=== PATIENT | male | born 1985 | race Caucasian/White ===

== ENCOUNTER 2016-06-04 12:32 | Inpatient (IN) | payer OTHER ==
[2016-06-04] MEDS ORDERED: SODIUM CHLORIDE 0.9% 1,000 ML IV ONE ×2 (13:54→15:49)
--- NOTE | 2016-06-04 13:59 | ED ---
General Adult HPI - General Chief complaint: Psychiatric Symptoms Stated complaint: mental health Time Seen by Provider: 06/04/16 13:00 Source: patient, family, RN notes reviewed Mode of arrival: ambulatory Limitations: no limitations - History of Present Illness Initial comments: This is a 30-year-old male who presents emergency Department with his parents. Patient is a diabetic and in the last couple of years has lost his vision was completely. Parents state he was depressed since she's been a young boy and also was diagnosed with bipolar. Parents state over the last month or so the patient is becoming delusional and hearing voices and now over the last week or so has been talking back to the voices and becoming extremely paranoid to the point where he refuses to go to the bathroom because thinks people in the bathroom are going to get him and so he has been going to the bathroom sometimes in his underwear. Family states he has become more more fearful to the point where the other day they found him in a corner holding a seat builder knife as he thought people were after him. Father states one time he wandered out of the house to go straight and some kids out who were teasing him even though the kids were no or near the house because [place]. family is afraid he might hurt somebody if they were ever to come to the door or if ever do were encountering anybody at his house. Patient was not of much help with the history he didn't seem to understand why he was brought in. - Related Data Home Medications Medication Instructions Recorded Confirmed Atorvastatin [Lipitor] 80 mg PO HS 06/04/16 06/04/16 Gabapentin [Neurontin] 800 mg PO TID PRN 06/04/16 06/04/16 Insulin Glargine,Hum.rec.anlog See Protocol SQ HS 06/04/16 06/04/16 [Lantus Solostar] Insulin Lispro [humaLOG Kwikpen] See Protocol SQ AC-TID 06/04/16 06/04/16 LORazepam [Ativan] 0.25 - 0.5 mg PO BID PRN 06/04/16 06/04/16 Latanoprost [Xalatan 0.005%] 1 drop BOTH EYES HS 06/04/16 06/04/16 Lisinopril [Zestril] 20 mg PO DAILY 06/04/16 06/04/16 Metoprolol Tartrate [Lopressor] 100 - 150 mg PO BID 06/04/16 06/04/16 Pantoprazole Sodium [Protonix] 40 mg PO AC-BID 06/04/16 06/04/16 Ranitidine HCl [Zantac] 150 mg PO AC-BID 06/04/16 06/04/16 Sertraline [Zoloft] 100 mg PO DAILY 06/04/16 06/04/16 Timolol 0.5% Ophth Soln [Timoptic 1 drop BOTH EYES DAILY 06/04/16 06/04/16 0.5% Ophth Soln] Venlafaxine HCl [Effexor XR] 150 mg PO BID 06/04/16 06/04/16 carBAMazepine [TEGretol] 200 mg PO BID 06/04/16 06/04/16 cloNIDine 0.1 MG/24HR PATCH 1 patch TRANSDERM WE 06/04/16 06/04/16 [Catapres-TTS] Allergies Allergy/AdvReac Type Severity Reaction Status Date / Time adhesive tape Allergy Rash/Hives Verified 06/04/16 13:40 cefazolin Allergy Rash/Hives Verified 06/04/16 13:40 latex Allergy Rash/Hives Verified 06/04/16 13:40 duloxetine [From Cymbalta] AdvReac Confusion Verified 06/04/16 13:40 pregabalin [From Lyrica] AdvReac Hallucinati Verified 06/04/16 13:40 ons Review of Systems ROS Statement: Those systems with pertinent positive or pertinent negative responses have been documented in the HPI. ROS Other: All systems not noted in ROS Statement are negative. Past Medical History Past Medical History: Diabetes Mellitus Additional Past Medical History / Comment(s): bilateral glaucoma, Tachycardia, diabetic gastropariesis, neuropathy History of Any Multi-Drug Resistant Organisms: None Reported Additional Past Surgical History / Comment(s): eye surgery Past Psychological History: Anxiety, Bipolar, Depression Smoking Status: Current every day smoker Past Alcohol Use History: None Reported Past Drug Use History: None Reported General Exam - General Exam Comments Initial Comments: GENERAL: Patient is well-developed and well-nourished. Patient is nontoxic and well- hydrated and is in no acute distress. ENT: Neck is soft and supple. No significant lymphadenopathy is noted. Oropharynx is clear. Moist mucous membranes. Neck has full range of motion without eliciting any pain. EYES: The sclera were anicteric and conjunctiva were pink and moist. Extraocular movements were intact and pupils were equal round and reactive to light. Eyelids were unremarkable. PULMONARY: Unlabored respirations. Good breath sounds bilaterally. No audible rales rhonchi or wheezing was noted. CARDIOVASCULAR: There is a regular rate and rhythm without any murmurs gallops or rubs. ABDOMEN: Soft and nontender with normal bowel sounds. No palpable organomegaly was noted. There is no palpable pulsatile mass. SKIN: Skin is clear with no lesions or rashes and otherwise unremarkable. NEUROLOGIC: Patient is alert and oriented patient appears who he is and where he is but not why he is here or what time of the year at this. Cranial nerves II through XII are grossly intact. Motor and sensory are also intact. Normal speech, volume and content. Symmetrical smile. Cerebellar exam grossly intact. MUSCULOSKELETAL: Normal extremities with adequate strength and full range of motion. No lower extremity swelling or edema. No calf tenderness. LYMPHATICS: No significant lymphadenopathy is noted PSYCHIATRIC: Difficult to assess because he only answers some of the questions Limitations: no limitations Course Vital Signs 06/04/16 06/04/16 06/04/16 12:56 13:25 15:42 Temperature 97.8 F 98.5 F Pulse Rate 101 H 75 90 Respiratory 16 18 18 Rate Blood Pressure 131/82 144/87 149/89 O2 Sat by Pulse 98 95 100 Oximetry Medical Decision Making - Medical Decision Making Patient's blood sugar was elevated and acetone was positive. Started the patient on an insulin drip as well as given the patient a bolus. I also gave the patient a bolus of 2 L of fluid. I spoke with Dr. Vickers agreed to admit the patient admitted the patient I consult to psychiatry for his delusions. And paranoia. - Lab Data Result diagrams: 06/04/16 14:15 06/04/16 14:15 Lab Results 06/04/16 06/04/16 Range/Units 14:15 14:15 WBC 11.7 H (3.8-10.6) k/uL RBC 4.31 (4.30-5.90) m/uL Hgb 10.7 L (13.0-17.5) gm/dL Hct 33.5 L (39.0-53.0) % MCV 77.7 L (80.0-100.0) fL MCH 24.9 L (25.0-35.0) pg MCHC 32.0 (31.0-37.0) g/dL RDW 14.1 (11.5-15.5) % Plt Count 477 H (150-450) k/uL Neutrophils % 78 % Lymphocytes % 16 % Monocytes % 4 % Eosinophils % 0 % Basophils % 0 % Neutrophils # 9.1 H (1.3-7.7) k/uL Lymphocytes # 1.8 (1.0-4.8) k/uL Monocytes # 0.5 (0-1.0) k/uL Eosinophils # 0.0 (0-0.7) k/uL Basophils # 0.0 (0-0.2) k/uL Hypochromasia Slight Sodium 135 L (137-145) mmol/L Potassium 4.4 (3.5-5.1) mmol/L Chloride 95 L (98-107) mmol/L Carbon Dioxide 27 (22-30) mmol/L Anion Gap 13 mmol/L BUN 23 H (9-20) mg/dL Creatinine 0.92 (0.66-1.25) mg/dL Est GFR (MDRD) Af Amer >60 (>60 ml/min/1.73 sqM) Est GFR (MDRD) Non-Af >60 (>60 ml/min/1.73 sqM) Glucose 390 H (74-99) mg/dL Calcium 9.9 (8.4-10.2) mg/dL Total Bilirubin 0.5 (0.2-1.3) mg/dL AST 24 (17-59) U/L ALT 43 (21-72) U/L Alkaline Phosphatase 147 H (38-126) U/L Total Protein 7.2 (6.3-8.2) g/dL Albumin 4.3 (3.5-5.0) g/dL Acetone, Qual Positive (Negative) Critical Care Time Critical Care Time: Yes Total Critical Care Time: 35 Disposition Clinical Impression: Diabetic ketoacidosis, Psychosis Disposition: ADMITTED IP TO THIS [facility] Time of Disposition: 15:51
[2016-06-04 14:28] LABS: Basophils % (A) 0 %; CH 24.8; CHCM 31.9; Eosinophils % (A) 0 %; HCT 33.5 % (39.0-53.0); HDW 3.09; HGB 10.7 gm/dL (13.0-17.5); Hypochromasia Slight; Luc # (Auto) 0.27; Luc % (Auto) 2; Lymphocytes # (A) 1.8 k/uL (1.0-4.8); Lymphocytes % (A) 16 %; MCH 24.9 pg (25.0-35.0); MCV 77.7 fL (80.0-100.0); Mean Platelet Volume 6.4; Monocytes # (A) 0.5 k/uL (0-1.0); Monocytes % (A) 4 %; Neutrophils # (A) 9.1 k/uL (1.3-7.7); Neutrophils % (A) 78 %; RBC 4.31 m/uL (4.30-5.90); RDW 14.1 % (11.5-15.5); WBC 11.7 k/uL (3.8-10.6); WBC (Perox) 11.67
[2016-06-04 14:38] LABS: ALT 43 U/L (21-72); AST 24 U/L (17-59); Alkaline Phosphatase 147 U/L (38-126); Anion Gap 13 mmol/L; Blood Urea Nitrogen 23 mg/dL (9-20); Calcium 9.9 mg/dL (8.4-10.2); Carbon Dioxide 27 mmol/L (22-30); Chloride 95 mmol/L (98-107); Glucose 390 mg/dL (74-99); Non-African American GFR(MDRD) >60 (>60 ml/min/1.73 sqM); Potassium 4.4 mmol/L (3.5-5.1); Sodium 135 mmol/L (137-145); Total Bilirubin 0.5 mg/dL (0.2-1.3); Total Protein 7.2 g/dL (6.3-8.2)
[2016-06-04] MEDS ORDERED: INSULIN REGULAR 100 UNIT/ML VIAL IV ONE (15:49)
[2016-06-04] MEDS ORDERED: INSULIN REGULAR 100 UNIT in SODIUM CHLORIDE 0.9% 100 ML IV ONE (15:49)
[2016-06-04 16:16] LABS: Glucose,Whole Blood 299 mg/dL (75-99)
[2016-06-04] MEDS: SODIUM CHLORIDE 0.9% 1,000 ML IV SCH ×2 (16:31→21:11)
[2016-06-04] MEDS: D5-0.45% NACL WITH KCL 20MEQ/L 1,000 ML IV SCH ×2 (16:34→22:05)
[2016-06-04] MEDS: INSULIN REGULAR 100 UNIT in SODIUM CHLORIDE 0.9% 100 ML IV SCH ×3 (16:34→18:27)
[2016-06-04] MEDS ORDERED: LORazepam 0.5 MG TAB PO PRN (16:50)
[2016-06-04] MEDS ORDERED: GABAPENTIN 400 MG CAP PO PRN (16:50)
[2016-06-04 17:13] LABS: Glucose,Whole Blood 287 mg/dL (75-99)
[2016-06-04] MEDS: PANTOPRAZOLE 40 MG TABLET PO SCH (18:09)
[2016-06-04] MEDS: FAMOTIDINE 20 MG TAB PO SCH (18:09)
[2016-06-04 18:18] LABS: Glucose,Whole Blood 251 mg/dL (75-99)
[2016-06-04 18:22] VITALS: BMI 26.5
[2016-06-04 18:42] LABS: Anion Gap 9 mmol/L; Blood Urea Nitrogen 17 mg/dL (9-20); Carbon Dioxide 24 mmol/L (22-30); Chloride 104 mmol/L (98-107); Glucose 232 mg/dL (74-99); Non-African American GFR(MDRD) >60 (>60 ml/min/1.73 sqM); Potassium 4.1 mmol/L (3.5-5.1); Sodium 137 mmol/L (137-145)
[2016-06-04 19:21] LABS: Glucose,Whole Blood 177 mg/dL (75-99)
[2016-06-04 20:26] LABS: Glucose,Whole Blood 106 mg/dL (75-99)
[2016-06-04] MEDS: ATORVASTATIN 80 MG TAB PO SCH (20:48)
[2016-06-04] MEDS: INSULIN GLARGINE 100 UNIT/ML 10 ML VIAL SQ SCH (20:49)
[2016-06-04] MEDS: LATANOPROST 0.005% OPHTH DROPS 2.5 ML BTL BOTH EYES SCH (20:49)
[2016-06-04] MEDS: carBAMazepine 200 MG TAB PO SCH (20:49)
[2016-06-04] MEDS: VENLAFAXINE HCL ER 150 MG CAP PO SCH (20:49)
[2016-06-04] MEDS: METOPROLOL TARTRATE 50 MG TAB PO SCH (20:49)
[2016-06-04] MEDS ORDERED: INSULIN NPH 300 UNIT/3 ML VIAL SQ ONE (21:00)
[2016-06-04 21:45] LABS: Glucose,Whole Blood 73 mg/dL (75-99)
[2016-06-04] MEDS: INSULIN LISPRO (humaLOG) 300 UNIT/3 ML VIAL SQ SCH (21:51)
[2016-06-04] MEDS: METOCLOPRAMIDE 5 MG TAB PO SCH ×2 (22:06→22:57)
--- NOTE | 2016-06-04 22:12 | HP ---
DATE OF ADMISSION: 06/04/2016 CHIEF COMPLAINT: A 30-year-old white male with diabetic ketoacidosis and psychotic behavior. HISTORY OF PRESENT ILLNESS: He has been diagnosed with ( ) bipolar. ( ) delusional ( ) last week, he was admitted with diabetic ketoacidosis and psychotic behavior, running around in his underwear around the house. He ( ) around the house to straight to some kids that were teasing him, the kids were ten miles away. The family was afraid he might get hurt. He was brought to the hospital. Psychiatric consult at this time. Home medications include: 1. Atorvastatin 80 mg a day. 2. Neurontin 800 t.i.d. 3. Humalog KwikPen. 4. ( ). 5. Ativan. 6. Zestril. 7. Lopressor. 8. Protonix for GERD. 9. Zoloft. 10. Effexor. 11. Tegretol. 12. Clonidine. ALLERGIES: ADHESIVES, CEFAZOLIN, CYMBALTA, LYRICA. 14 point review of systems negative except for as mentioned in HPI. PAST MEDICAL HISTORY: Diabetes mellitus, glaucoma, tachycardia, diabetic neuropathy, eye surgery, anxiety, depression, bipolar. Current every day smoker. VITAL SIGNS: Stable, afebrile. CARDIOVASCULAR: S1, S2. LUNGS: Transmitted upper airway signs. GI: Soft, nontender. HEMATOLOGIC: Negative Homans. PSYCHIATRIC: Fair mood and affect. Ophthalmologic: Pupils equal, round, react to light and accommodation. NEUROLOGIC: Alert and oriented x3. PSYCHIATRIC: Fair mood and affect. Ophthalmologic: Pupils equal, round and react to light and accommodation. Temperature 97.4, pulse 75 to 101, respiratory rate 16 to 18, blood pressure 130s to 140s over 80s. O2 is 98 to 100%. White count 11.7, hemoglobin 10.7, sodium 135, potassium 3.4. ASSESSMENT: 1. Diabetic ketoacidosis. 2. Hyponatremia. 3. Psychotic behavior. 4. History of chronic anemia. PLAN: The patient will get a psychiatric consult, placed on DKA protocol. Please see further orders on the chart.
[2016-06-04 22:39] LABS: Glucose,Whole Blood 79 mg/dL (75-99)
[2016-06-04 22:48] LABS: Anion Gap 12 mmol/L; Blood Urea Nitrogen 17 mg/dL (9-20); Carbon Dioxide 22 mmol/L (22-30); Chloride 107 mmol/L (98-107); Glucose 71 mg/dL (74-99); Non-African American GFR(MDRD) >60 (>60 ml/min/1.73 sqM); Phosphorous 3.5 mg/dL (2.5-4.5); Potassium 4.4 mmol/L (3.5-5.1); Sodium 141 mmol/L (137-145)
[2016-06-05 01:12] LABS: Glucose,Whole Blood 234 mg/dL (75-99)
[2016-06-05] MEDS: D5-0.45% NACL WITH KCL 20MEQ/L 1,000 ML IV SCH ×3 (04:36→22:01)
[2016-06-05 06:55] LABS: Glucose,Whole Blood 322 mg/dL (75-99)
[2016-06-05 07:26] LABS: Glucose,Whole Blood 406 mg/dL (75-99)
[2016-06-05] MEDS: INSULIN LISPRO (humaLOG) 300 UNIT/3 ML VIAL SQ SCH ×7 (07:49→21:58)
[2016-06-05] MEDS: FAMOTIDINE 20 MG TAB PO SCH ×2 (07:51→18:19)
[2016-06-05] MEDS: PANTOPRAZOLE 40 MG TABLET PO SCH ×2 (07:51→18:19)
[2016-06-05] MEDS: METOCLOPRAMIDE 5 MG TAB PO SCH ×2 (07:51→18:19)
[2016-06-05] MEDS: SERTRALINE 100 MG TAB PO SCH (07:52)
[2016-06-05] MEDS: carBAMazepine 200 MG TAB PO SCH ×2 (07:52→21:57)
[2016-06-05] MEDS: TIMOLOL 0.5% OPHTH DROPS 5 ML BTL BOTH EYES SCH (07:52)
[2016-06-05] MEDS: VENLAFAXINE HCL ER 150 MG CAP PO SCH ×2 (07:53→21:57)
[2016-06-05] MEDS: METOPROLOL TARTRATE 50 MG TAB PO SCH ×2 (07:54→21:57)
[2016-06-05] MEDS: LISINOPRIL 20 MG TAB PO SCH (07:55)
[2016-06-05 11:33] LABS: Glucose,Whole Blood 260 mg/dL (75-99)
[2016-06-05 14:43] LABS: Hemoglobin A1C 9.3 % (4.2-6.1)
--- NOTE | 2016-06-05 16:10 | P.CN ---
Psychiatric Consult - . Consult date: 06/05/16 Consult:: IDENTIFYING DATA: Mr. Slater is a 30-year-old legally blind male who [facility] with auditory hallucination, delusional believes and increasing paranoia. He has history of insulin-dependent diabetes mellitus and his serum blood glucose was 390 on presentation to the ER. He is admitted to medicine service with a diagnosis of diabetic ketoacidosis. HISTORY OF PRESENT ILLNESS: I reviewed the medical record and attempted to interview Mr. Slater. He complained of feeling nauseous and having difficulty sleeping. He provided little additional information. Fortunately, his father was present and described a marked change in his behavior over the last 2-3 weeks prior to admission. He stated that Daniel has been more paranoid. He believes that people are outside of the house and on the roof spying on him. His level of paranoia was so extreme that her father covered the álvaro light in his room with cardboard to block people from potentially looking through the álvaro light. However, Daniel continued to believe that people were spying and video recording him. He became so paranoid about his privacy that he has refused to go into the bathroom and began urinating on himself. He expressed a belief that the people at the local town are coming to get him. About 2 weeks prior to admission he took a disheveled from the barn because he believes the children across the road were teasing him. About 2 weeks prior to admission he called his parents and agitated state alleging that people have broken into the house. When they came home from the market he had locked himself in a room with knives. They have since locked all the knives and guns in the house away. His father described him as seeing people and carrying on conversations with invisible people. His parents are so concerned that they do not want him to return home unless he has additional mental health treatment. PAST PSYCHIATRIC HISTORY: History of depression and received mental health treatment since approximately age 13. He has a psychiatrist at [facility] services in [facility]. His current psychotropic medications include Tegretol 20 mg twice a day, Effexor XR 150 mg twice a day and sertraline 100 mg daily. His father complained to his outpatient psychiatrist about the changes his behavior to no avail. They are in the process of switching his care to the [facility] in [facility]. He denied prior episodes of paranoia, delusional thinking and visual and auditory hallucinations. He is had no prior psychiatric hospitalizations.. PAST MEDICAL HISTORY: Diagnosed with diabetes at age 13. He lost his eyesight secondary to diabetes about 2-1/2 years ago.. SUBSTANCE USE HISTORY: He has a history of alcohol and dextromethorphan abuse. He entered a rehabilitation program to [facility] two and half years ago and has been abstinent since.. SOCIAL HISTORY: He is single and has no children. He lives with his parents in [place] [facility]. He is currently unemployed. MENTAL STATUS EXAM: He presented as a casually groomed 30-year-old male who was minimally cooperative with the interview. He did not make eye contact but appeared to attend to the interview. He had multiple tattoos but no prominent physical abnormalities. He had a distressed facial expression. He showed psychomotor retardation but no abnormal involuntary movements. Her speech was not spontaneous and had decreased rate, rhythm and volume. His affect was blunted. He denied suicidal ideation or wishes. He denied homicidal ideation. Depressed feelings of helplessness and hopelessness. He did not express ideas reference, paranoid ideation or delusional thoughts. His thinking was concrete and associations appeared coherent. He denied current hallucinations and did not appear to be responding to internal stimuli. IMPRESSIONS: He is a 30-year-old single male who is legally blind. He presented with increasing paranoia, paranoid delusional beliefs, irritability and auditory and visual hallucinations. He has history of mood disorder but no prior episodes of psychosis. He should be treated on an inpatient basis with a combination of psychopharmacology and multimodal therapy. 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 06/05/16 15:52 06/05/16 16:08
[2016-06-05 17:13] LABS: Glucose,Whole Blood 157 mg/dL (75-99)
[2016-06-05 20:03] LABS: Glucose,Whole Blood 188 mg/dL (75-99)
[2016-06-05] MEDS: ATORVASTATIN 80 MG TAB PO SCH (21:57)
[2016-06-05] MEDS: LATANOPROST 0.005% OPHTH DROPS 2.5 ML BTL BOTH EYES SCH (21:58)
[2016-06-05] MEDS: INSULIN GLARGINE 100 UNIT/ML 10 ML VIAL SQ SCH (21:59)
[2016-06-06] MEDS: D5-0.45% NACL WITH KCL 20MEQ/L 1,000 ML IV SCH ×4 (00:02→21:00)
[2016-06-06 06:44] LABS: Glucose,Whole Blood 421 mg/dL (75-99)
[2016-06-06] MEDS: VENLAFAXINE HCL ER 150 MG CAP PO SCH ×2 (07:19→20:56)
[2016-06-06] MEDS: TIMOLOL 0.5% OPHTH DROPS 5 ML BTL BOTH EYES SCH (07:19)
[2016-06-06] MEDS: SERTRALINE 100 MG TAB PO SCH (07:20)
[2016-06-06] MEDS: LISINOPRIL 20 MG TAB PO SCH (07:20)
[2016-06-06] MEDS: METOPROLOL TARTRATE 50 MG TAB PO SCH ×2 (07:20→20:56)
[2016-06-06] MEDS: METOCLOPRAMIDE 5 MG TAB PO SCH ×2 (07:21→17:59)
[2016-06-06] MEDS: carBAMazepine 200 MG TAB PO SCH ×2 (07:21→20:56)
[2016-06-06] MEDS: PANTOPRAZOLE 40 MG TABLET PO SCH ×2 (07:21→17:58)
[2016-06-06] MEDS: FAMOTIDINE 20 MG TAB PO SCH ×2 (07:21→17:56)
[2016-06-06] MEDS: INSULIN LISPRO (humaLOG) 300 UNIT/3 ML VIAL SQ SCH ×7 (07:22→20:57)
--- NOTE | 2016-06-06 08:19 | PN ---
SUBJECTIVE: A 30-year-old white male with DKA psychosis. He is back on his insulin he normally takes at home. He is off the Accu-Cheks protocol. CARDIOVASCULAR: S1, S2. LUNGS: Clear. GI: Soft. HEMATOLOGIC: Negative Homans. NEUROLOGIC: Alert and oriented x3. ASSESSMENT: Diabetic ketoacidosis psychosis. Continue the next 24 to 48 hours for transfer to [facility] for her severe psychotic help.
[2016-06-06 09:37] LABS: Glucose,Whole Blood 237 mg/dL (75-99)
[2016-06-06 11:47] LABS: Glucose,Whole Blood 187 mg/dL (75-99)
--- NOTE | 2016-06-06 16:12 | P.DS ---
Providers Date of admission: 06/04/16 15:51 Expected date of discharge: 06/06/16 Attending physician: Wisam Noble Consults: 06/04/16 15:55 Consult Physician Urgent Consulting Provider: Wisam Davey Reason/Comments: Psychosis Do you want consulting provider notified?: Already Contacted Primary care physician: [facility] Course: 30-year-old gentleman presented to the emergency room with his parents. Patient is a type Idiabetic. In the emergency room the patient's blood sugar was 390 Last couple years has lost his vision completely. Patient reports he 's been depressed since he's depressed since he's been a child Was diagnosed bipolar. Patient apparently last month or so became delusional hearing voices. Over the last week or so patient stated that he been talking back to the voices became extremely paranoid to the point where he refused to go the bathroom because he thought people were in the bathroom were going to get him.. Family brought patient into the emergency room stating that the patient was fearful to the point that the other day they found him in a corner holding a high school guidance counselor knife as he thought people were after him. The father states 1 time he wandered out of the house and went straight to some children were teasing him even though the kids were not. The family lives on a 10 acre house. The family is concerned that the patient may hurt himself or hurt somebody. Subsequently the patient was admitted to the services of the attending. Patient 's DKA was addressed patient psychosis was addressed. The museum educator did see the patient. Patient was petitioned and a certification was obtained patient's blood sugars were corrected DKA treated patient was stable and appropriate to proceed Impression discharge diagnosis admitted to the mental health unit. Impression discharge diagnosis Present on admission DKA Type 1 diabetes Delusional behavior increased paranoia History of depression nonspecified Legally blind Present on admission Increasing paranoia and paranoid delusional beliefs irritability with visual and auditory hallucinations Mood Disorder The above dictated assessment and findings were discussed with dr noble. Impression and the plan of care have been dictated as directed. Rosemarie Shirley nurse practitioner acting as a scribe for dr noble Plan - Discharge Summary New Discharge Prescriptions: Insulin Glargine [Lantus] 24 unit SQ HS #1 vial Discharge Medication List Atorvastatin [Lipitor] 80 mg PO HS 06/04/16 [History] Gabapentin [Neurontin] 800 mg PO TID PRN 06/04/16 [History] Insulin Glargine,Hum.rec.anlog [Lantus Solostar] See Protocol SQ HS 06/04/16 [ History] Insulin Lispro [humaLOG Kwikpen] See Protocol SQ AC-TID 06/04/16 [History] LORazepam [Ativan] 0.25 - 0.5 mg PO BID PRN 06/04/16 [History] Latanoprost [Xalatan 0.005%] 1 drop BOTH EYES HS 06/04/16 [History] Lisinopril [Zestril] 20 mg PO DAILY 06/04/16 [History] Metoprolol Tartrate [Lopressor] 100 - 150 mg PO BID 06/04/16 [History] Pantoprazole Sodium [Protonix] 40 mg PO AC-BID 06/04/16 [History] Ranitidine HCl [Zantac] 150 mg PO AC-BID 06/04/16 [History] Sertraline [Zoloft] 100 mg PO DAILY 06/04/16 [History] Timolol 0.5% Ophth Soln [Timoptic 0.5% Ophth Soln] 1 drop BOTH EYES DAILY [History] Venlafaxine HCl [Effexor XR] 150 mg PO BID 06/04/16 [History] carBAMazepine [TEGretol] 200 mg PO BID 06/04/16 [History] cloNIDine 0.1 MG/24HR PATCH [Catapres-TTS] 1 patch TRANSDERM WE 06/04/16 [ History] Insulin Glargine [Lantus] 24 unit SQ HS #1 vial 06/06/16 [Rx] Follow up Appointment(s)/Referral(s): Markel Morrissey MD [Primary Care Provider] - 1-2 days Discharge Disposition: TRANSFER TO PSYCH HOSP/UNIT
[2016-06-06 17:05] LABS: Glucose,Whole Blood 179 mg/dL (75-99)
[2016-06-06 20:27] LABS: Glucose,Whole Blood 97 mg/dL (75-99)
[2016-06-06] MEDS: ATORVASTATIN 80 MG TAB PO SCH (20:56)
[2016-06-06] MEDS: INSULIN GLARGINE 100 UNIT/ML 10 ML VIAL SQ SCH (20:56)
[2016-06-06] MEDS: LATANOPROST 0.005% OPHTH DROPS 2.5 ML BTL BOTH EYES SCH (20:57)
[2016-06-06 22:40] VITALS: PULSE 90
[2016-06-07] MEDS: D5-0.45% NACL WITH KCL 20MEQ/L 1,000 ML IV SCH (00:47)
[2016-06-07 07:15] LABS: Glucose,Whole Blood 178 mg/dL (75-99)
[2016-06-07] MEDS: METOCLOPRAMIDE 5 MG TAB PO SCH (07:50)
[2016-06-07] MEDS: FAMOTIDINE 20 MG TAB PO SCH (07:50)
[2016-06-07] MEDS: VENLAFAXINE HCL ER 150 MG CAP PO SCH (07:52)
[2016-06-07] MEDS: SERTRALINE 100 MG TAB PO SCH (07:53)
[2016-06-07] MEDS: METOPROLOL TARTRATE 50 MG TAB PO SCH (07:53)
[2016-06-07] MEDS: TIMOLOL 0.5% OPHTH DROPS 5 ML BTL BOTH EYES SCH (07:53)
[2016-06-07] MEDS: carBAMazepine 200 MG TAB PO SCH (07:54)
[2016-06-07] MEDS: LISINOPRIL 20 MG TAB PO SCH (07:54)
[2016-06-07] MEDS: PANTOPRAZOLE 40 MG TABLET PO SCH ×2 (07:54→08:02)
[2016-06-07] MEDS: INSULIN LISPRO (humaLOG) 300 UNIT/3 ML VIAL SQ SCH ×2 (07:55)
[2016-06-07 08:11] VITALS: BP 122/74; RESP 16; TEMP 97.6
[2016-06-07] MEDS ORDERED: cloNIDine 0.1 MG/24HR PATCH 1 PATCH PATCH TRANSDERM SCH (09:00)
== END 2016-06-07 09:33 | DRG 639 ==
LOC: EC 12:32 → 6SEL 15:51 → 5MS5E 23:56
PROVIDERS: ADMIT Family Medicine; ATTEND Family Medicine
DX: E10.10 Type 1 diabetes mellitus with ketoacidosis without coma (principal); F22 Delusional disorders; E10.40 Type 1 diabetes mellitus with diabetic neuropathy, unspecified; F31.9 Bipolar disorder, unspecified; F39 Unspecified mood [affective] disorder; H54.8 Legal blindness, as defined in USA; H40.9 Unspecified glaucoma; K21.9 Gastro-esophageal reflux disease without esophagitis; D64.9 Anemia, unspecified; F41.9 Anxiety disorder, unspecified; F17.200 Nicotine dependence, unspecified, uncomplicated; Z88.8 Allergy status to other drugs, medicaments and biological substances; Z88.9 Allergy status to unspecified drugs, medicaments and biological substances; Z88.1 Allergy status to other antibiotic agents; Z91.040 Latex allergy status; Z79.899 Other long term (current) drug therapy; Z79.4 Long term (current) use of insulin
CPT/HCPCS: 36415; 80051; 80053; 82009; 82075; 82565; 82947; 83036; 84100; 84520; 85025

== ENCOUNTER 2016-06-07 08:51 | Inpatient (IN) | payer MEDICAID ==
[2016-06-07] MEDS ORDERED: ACETAMINOPHEN TAB 325 MG TAB PO PRN (10:31)
[2016-06-07] MEDS ORDERED: MAGNESIUM HYDROXIDE 2,400 MG/10 ML CUP PO PRN (10:31)
[2016-06-07] MEDS ORDERED: MAG HYDROX/AL HYDROX/SIMETH 30 ML CUP PO PRN (10:31)
[2016-06-07] MEDS ORDERED: GABAPENTIN 400 MG CAP PO PRN (10:35)
[2016-06-07] MEDS ORDERED: LORazepam 0.5 MG TAB PO PRN (10:35)
[2016-06-07 13:03] LABS: Glucose,Whole Blood 88 mg/dL (75-99)
--- NOTE | 2016-06-07 13:25 | P.HP ---
Psychiatric H&P - . H&P Date: 06/07/16 History & Physical: IDENTIFYING DATA: Mr. Slater is a 30-year-old legally blind male who [facility] with auditory hallucinations, delusional beliefs and increasing paranoia. He has a history of insulin-dependent diabetes mellitus and his serum glucose was 390 on presentation to the ER. He was admitted to medicine service with diagnosis of diabetic ketoacidosis. Psychiatry consulted while he was on medicine and recommended a transfer to the psychiatric unit when medically stable. HISTORY OF PRESENT ILLNESS: I interviewed him and his father after he was admitted to medicine service. He provided little information. Similarly, he provided little information during our interview today. He complained about the transfer to the psychiatric unit stating that he did not agree to come here. I explained involuntary admission process. His father provided much of the history. His father described a marked change his behavior over the 2-3 weeks prior to admission. He stated that Daniel has become paranoid. He believes that people were outside the house and on the roof of the house spying on him. His level of paranoia was so extreme that his father covered the álvaro light in his room with cardboard to block people from potentially looking to the álvaro light. However, Daniel continue believed that people were spying and video recording him while he was in the house. He became so paranoid about his privacy that he refused to go the bathroom and began to soil himself. He believed that people in the local town were coming to "get him". About 2 weeks prior to admission he took a shovel from the barn "to teach the children across the road a lesson". He was paranoid about their behavior. His father took to shuffle away to prevent him from harming or injuring the children. Prior to admission he called his parents while they were away from the house acutely agitated. He alleged that people have broken into the house. When they came home he had locked himself in a room with knives. They have since locked away the knives and guns in the house. His father has observed him talking to people who were not present. His parents have become so concerned about his paranoia and possible danger to others that they not leave him home alone unsupervised. His father would not take him home from the medicine unit until we receive psychiatric treatment. PAST PSYCHIATRIC HISTORY: According to his father he has a history of depression and has received mental health treatment since he was approximately 13 years old. He had a psychiatrist at [facility] in [facility]. His current psychiatric medications include Tegretol 200 mg twice a day, Effexor 150 mg twice a day and sertraline 100 mg daily. His father stated he complained to his outpatient psychiatrist about the change in Tani's behavior but the psychiatrist made no change in the treatment plan. His parents are in the process of switching his care to the [facility] in [facility]. His father denied prior episodes of paranoia, delusional thinking and visual and auditory hallucinations. He has had no prior psychiatric hospitalizations. PAST MEDICAL HISTORY: He was diagnosed with diabetes at age 13. He lost his eyesight secondary to diabetes about 2-1/2 years ago. ALLERGIES: Cefazolin, latex, duloxetine, pregabalin SUBSTANCE USE HISTORY: He has a history of alcohol and dextromethorphan abuse. He entered a rehabilitation program at [facility] 10/2 years ago and has been abstinent since. FAMILY PSYCHIATRIC/SUBSTANCE USE HISTORY: He is unaware of a family history of mental illness. LEGAL HISTORY: He has no history of legal problems. SOCIAL HISTORY: He was raised in an intact family. He graduated from high school. He is single and has no children. He lives with his parents in [facility]. He is unemployed and receives disability. MENTAL STATUS EXAM: He presented as a casually groomed 30-year-old man who is laying comfortably on his hospital bed. He stared to the ceiling during the interview. He was minimally cooperative with the interview. He had no prominent physical abnormalities were distinguishing features. He had a flat facial expression. He showed psychomotor retardation but no abnormal involuntary movements. Speech was not spontaneous. He was angry about the hospitalization. He did not express suicidal ideation or wishes. He would not talk about his experiences prior to admission when I specifically inquired about the paranoia, delusional beliefs and hallucinations he either did not answer or shrugged his shoulders. His thinking was concrete but his associations appeared logical and coherent. He denied hallucinations and did not appear to be responding to internal stimuli. STRENGTHS: Supportive family, stable housing, stable income, involvement with outpatient mental health care. WEAKNESSES: Insulin-dependent diabetes mellitus, decreased visual acuity, paranoia,. IMPRESSION: Is a 30-year-old single male who has a history of a depressive disorder. He presented to [facility] with increasing paranoia, delusional beliefs and auditory and visual hallucinations. The psychotic symptoms developed over a period of 2-3 weeks prior to admission. He has no recent history of alcohol or drug use. He is had no prior psychotic episodes or inpatient treatment. He appears depressed but shows no signs and symptoms of maria guadalupe or hypomania. The psychosis may be related to his perceptual disability and/or a mood or psychotic disorder. He should be treated on an inpatient basis with a combination of psychopharmacology and multimodal therapy.. PRINCIPLE DIAGNOSIS: Unspecified psychotic disorder, rule out major depressive disorder with psychotic features, rule out bipolar disorder depressed with psychotic features, rule out schizophrenia, history of alcohol and dextromethorphan abuse RECOMMENDATION: Proceed with involuntary hospitalization. Complete a second clinical certificate and submit the Petition and supporting clinical certificate as to program record. Taper and discontinue Effexor. Continue sertraline 100 mg daily and Tegretol 20 mg twice a day. Obtain consent for a trial of Abilify. His home medicine for initial physical exam and medical history. 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 One-to -one sitter until he is familiar with the unit. Encourage participation in therapeutic groups and activities. Evaluate clinical status response to treatment on a daily basis. Allergies Allergy/AdvReac Type Severity Reaction Status Date / Time adhesive tape Allergy Rash/Hives Verified 06/07/16 10:15 cefazolin Allergy Rash/Hives Verified 06/07/16 10:15 latex Allergy Rash/Hives Verified 06/07/16 10:15 duloxetine [From Cymbalta] AdvReac Confusion Verified 06/07/16 10:15 pregabalin [From Lyrica] AdvReac Hallucinati Verified 06/07/16 10:15 ons Vital Signs Temp 98.5 F 06/07/16 09:35 Pulse 115 H 06/07/16 09:35 Resp 20 06/07/16 09:35 BP 128/98 06/07/16 09:35 Pulse Ox Intake & Output 06/06/16 06/07/16 06/07/16 18:59 06:59 18:59 Weight 77.734 kg 06/07/16 12:04 06/07/16 13:02
[2016-06-07 13:28] VITALS: BMI 26.0
[2016-06-07] MEDS: INSULIN LISPRO (humaLOG) 300 UNIT/3 ML VIAL SQ SCH ×3 (13:31→21:30)
[2016-06-07 17:18] LABS: Glucose,Whole Blood 146 mg/dL (75-99)
[2016-06-07] MEDS: FAMOTIDINE 20 MG TAB PO SCH (17:44)
[2016-06-07] MEDS: PANTOPRAZOLE 40 MG TABLET PO SCH (17:46)
[2016-06-07 18:12] LABS: Glucose,Whole Blood 152 mg/dL (75-99)
[2016-06-07 19:53] LABS: Glucose,Whole Blood 183 mg/dL (75-99)
[2016-06-07] MEDS ORDERED: cloNIDine 0.1 MG/24HR PATCH 1 PATCH PATCH TRANSDERM SCH (20:15)
[2016-06-07 20:49] LABS: Basophils % (A) 0 %; CH 24.7; CHCM 30.1; Eosinophils % (A) 0 %; HCT 35.4 % (39.0-53.0); HGB 10.7 gm/dL (13.0-17.5); Hypochromasia Marked; Luc # (Auto) 0.32; Luc % (Auto) 3; Lymphocytes # (A) 1.7 k/uL (1.0-4.8); Lymphocytes % (A) 15 %; MCH 24.7 pg (25.0-35.0); MCHC 30.1 g/dL (31.0-37.0); MCV 82.2 fL (80.0-100.0); Mean Platelet Volume 6.2; Monocytes # (A) 0.5 k/uL (0-1.0); Monocytes % (A) 5 %; Neutrophils # (A) 8.4 k/uL (1.3-7.7); Neutrophils % (A) 77 %; RBC 4.31 m/uL (4.30-5.90); RDW 14.3 % (11.5-15.5); WBC 10.9 k/uL (3.8-10.6); WBC (Perox) 11.08
[2016-06-07] MEDS ORDERED: VENLAFAXINE HCL ER 150 MG CAP PO SCH (21:00)
[2016-06-07] MEDS ORDERED: INSULIN GLARGINE 100 UNIT/ML 10 ML VIAL SQ SCH (21:00)
[2016-06-07] MEDS ORDERED: INSULIN GLARGINE HUM REC ANLOG 24 UNIT SQ SCH (21:00)
[2016-06-07 21:01] LABS: ALT 36 U/L (21-72); AST 20 U/L (17-59); Alkaline Phosphatase 122 U/L (38-126); Anion Gap 13 mmol/L; Blood Urea Nitrogen 20 mg/dL (9-20); Calcium 9.5 mg/dL (8.4-10.2); Carbon Dioxide 23 mmol/L (22-30); Chloride 106 mmol/L (98-107); Glucose 223 mg/dL (74-99); Non-African American GFR(MDRD) >60 (>60 ml/min/1.73 sqM); Potassium 4.2 mmol/L (3.5-5.1); Sodium 142 mmol/L (137-145); Total Bilirubin 0.5 mg/dL (0.2-1.3); Total Protein 7.1 g/dL (6.3-8.2)
[2016-06-07] MEDS: ATORVASTATIN 80 MG TAB PO SCH (21:39)
[2016-06-07] MEDS: carBAMazepine 200 MG TAB PO SCH (21:39)
[2016-06-07] MEDS: METOPROLOL TARTRATE 50 MG TAB PO SCH (21:39)
[2016-06-07] MEDS: VENLAFAXINE HCL ER 75 MG CAP PO SCH (21:40)
[2016-06-07] MEDS: LATANOPROST 0.005% OPHTH DROPS 2.5 ML BTL BOTH EYES SCH (23:13)
[2016-06-08 04:15] LABS: Appearance,Urine Clear (Clear); Bacteria,Urine Rare /hpf; Bilirubin,Urine Negative (Negative); Glucose,Urine (UA) 4+ (Negative); Leukocyte Esterase,Urine Negative (Negative); Mucus,Urine Many /hpf; Nitrite,Urine Negative (Negative); PH, Urine 5.5 (5.0-8.0); Particle Count 7948; Protein,Urine 1+ (Negative); RBC,Urine 1 /hpf (0-5); Specific Gravity,Urine 1.023 (1.001-1.035); Squamous Epithelial Cell,Urine <1 /hpf (0-4); UA Billing (MACRO vs. MICRO) MICRO; Urobilinogen,Urine <2.0 mg/dL (<2.0); WBC,Urine 6 /hpf (0-5)
[2016-06-08 06:20] LABS: Glucose,Whole Blood 337 mg/dL (75-99)
[2016-06-08 07:50] LABS: Ketones,Urine 2+ (Negative)
[2016-06-08] MEDS: INSULIN LISPRO (humaLOG) 300 UNIT/3 ML VIAL SQ SCH ×7 (08:14→20:24)
[2016-06-08] MEDS: PANTOPRAZOLE 40 MG TABLET PO SCH ×2 (08:16→17:46)
[2016-06-08] MEDS: FAMOTIDINE 20 MG TAB PO SCH ×2 (08:16→17:45)
[2016-06-08] MEDS: LISINOPRIL 20 MG TAB PO SCH (08:17)
[2016-06-08] MEDS: carBAMazepine 200 MG TAB PO SCH ×2 (08:17→20:25)
[2016-06-08] MEDS: TIMOLOL 0.5% OPHTH DROPS 5 ML BTL BOTH EYES SCH (08:18)
[2016-06-08] MEDS: METOPROLOL TARTRATE 50 MG TAB PO SCH ×2 (08:18→20:25)
[2016-06-08] MEDS: SERTRALINE 100 MG TAB PO SCH (08:18)
[2016-06-08] MEDS: VENLAFAXINE HCL ER 150 MG CAP PO SCH (08:33)
[2016-06-08] MEDS: INSULIN GLARGINE 100 UNIT/ML 10 ML VIAL SQ SCH (10:26)
[2016-06-08 12:47] LABS: Glucose,Whole Blood 286 mg/dL (75-99)
--- NOTE | 2016-06-08 13:35 | P.PN ---
Progress Note - Text SUBJECTIVE: I reviewed the medical record, interviewed Mr. Slater and discuss his treatment and treatment plan during team meeting. She is laying comfortably in bed but was minimally cooperative. He would not look at my direction and answered questions with brief statements. He would not consent to a voluntary admission and would not consent to a trial of an antipsychotic medication. He would not talk about his experiences prior to admission or about the problems described by his father. OBJECTIVE: He presented as a casually groomed 30-year-old male who is laying comfortably in bed. His one-to-one sitter was in attendance. He did not attempt to make eye contact. He had no distinguishing features or prominent physical abnormalities. He had a flat angry facial expression. He showed psychomotor retardation but no abnormal involuntary movements. His speech was not spontaneous. He was angry regarding hospitalization. He did not express suicidal ideation or wishes he did not express feelings of hopelessness, helplessness or worthlessness. He would not talk about his psychotic experiences did not express ideas reference or paranoid ideation during our encounter. He stated he was concrete but his associations appeared coherent. He did not appear to be responding to internal stimuli and would answer questions about hallucinatory experiences. He is not eating meals but is drinking fluids. ASSESSMENT: He is angry and uncooperative. He would not talk about her circumstances that brought him to the hospital and will not give consent for hospitalization or treatment with alternative medications. PLAN: Continue inpatient hospitalization. Proceed with the application for involuntary hospitalization. Continue to discuss treatment with an antipsychotic. If he does not consent to a trial of antipsychotic then begin antipsychotic after taking an involuntary treatment order. After we start the antipsychotic taper then discontinue Tegretol. Continue to taper Effexor but continue Zoloft 100 mg daily. Encourage to eat meals and encourage hydration. Continue with one-to-one sitter until he is familiar with the inpatient environment. Encourage participation in therapeutic groups and activities as tolerated. Evaluate clinical status and response to treatment on a daily basis.
--- NOTE | 2016-06-08 15:49 | P.HPIM ---
History of Present Illness H&P Date: 06/08/16 A 30-year-old male being seen on the mental health unit for medical eval at the request of the attending.. Patient was just admitted on June 06 to the mental health unit for treatment of delusional behavior increased paranoia in a patient who has a depressive disorder. Patient has a sitter at the bedside. This morning the patient is cooperative states he "would drink chocolate malt" patient is a type I diabetic. Prior omission the patient was recently treated for DKA which was corrected patient was stabilized and discharged and able to be admitted to the mental health unit on June 06. Patient has been restarted on his insulin blood sugars have been monitored Patient has had a depressive disorder since childhood and apparently was diagnosed with bipolar disorder. Patient does have a history of delusional both auditory and visual hallucinations. Apparently the last week or so the patient's family noted the patient becoming extremely paranoid they were concerned and brought the patient into the emergency room they found that the patient blood sugar was elevated at that time. Patient at that time was treated for DKA corrected and as mentioned was able to be stabilized and admitted into the mental health unit Review of Systems Essentially unremarkable except as mentioned in the present illness Past Medical History Past Medical History: Diabetes Mellitus Additional Past Medical History / Comment(s): bilateral glaucoma, Tachycardia, diabetic gastropariesis, neuropathy History of Any Multi-Drug Resistant Organisms: None Reported Additional Past Surgical History / Comment(s): eye surgery Past Psychological History: Anxiety, Bipolar, Depression Smoking Status: Current every day smoker Past Alcohol Use History: None Reported Past Drug Use History: None Reported Medications and Allergies Home Medications Medication Instructions Recorded Confirmed Type Atorvastatin [Lipitor] 80 mg PO HS 06/04/16 06/07/16 History Gabapentin [Neurontin] 800 mg PO TID PRN 06/04/16 06/07/16 History Insulin Glargine,Hum.rec.anlog See Protocol SQ HS 06/04/16 06/07/16 History [Lantus Solostar] Insulin Lispro [humaLOG Kwikpen] See Protocol SQ AC-TID 06/04/16 06/07/16 History LORazepam [Ativan] 0.25 - 0.5 mg PO BID PRN 06/04/16 06/07/16 History Latanoprost [Xalatan 0.005%] 1 drop BOTH EYES HS 06/04/16 06/07/16 History Lisinopril [Zestril] 20 mg PO DAILY 06/04/16 06/07/16 History Metoprolol Tartrate [Lopressor] 100 - 150 mg PO BID 06/04/16 06/07/16 History Pantoprazole Sodium [Protonix] 40 mg PO AC-BID 06/04/16 06/07/16 History Ranitidine HCl [Zantac] 150 mg PO AC-BID 06/04/16 06/07/16 History Sertraline [Zoloft] 100 mg PO DAILY 06/04/16 06/07/16 History Timolol 0.5% Ophth Soln [Timoptic 1 drop BOTH EYES DAILY 06/04/16 06/07/16 History 0.5% Ophth Soln] Venlafaxine HCl [Effexor XR] 150 mg PO BID 06/04/16 06/07/16 History carBAMazepine [TEGretol] 200 mg PO BID 06/04/16 06/07/16 History cloNIDine 0.1 MG/24HR PATCH 1 patch TRANSDERM WE 06/04/16 06/07/16 History [Catapres-TTS] Allergies Allergy/AdvReac Type Severity Reaction Status Date / Time adhesive tape Allergy Rash/Hives Verified 06/07/16 10:15 cefazolin Allergy Rash/Hives Verified 06/07/16 10:15 latex Allergy Rash/Hives Verified 06/07/16 10:15 duloxetine [From Cymbalta] AdvReac Confusion Verified 06/07/16 10:15 pregabalin [From Lyrica] AdvReac Hallucinati Verified 06/07/16 10:15 ons Physical Exam Vitals: Vital Signs Temp Pulse Resp BP 06/08/16 06:36 97.5 F L 82 18 133/77 06/07/16 21:42 95 131/75 06/07/16 20:35 95 18 131/75 06/07/16 20:22 111 H 135/92 GENERAL APPEARANCE: 30-year-old legally blind patient is alert, oriented, in no acute distress. Resting in bed sitter at bedside cooperative VITAL SIGNS: Reviewed HEENT: Head is normocephalic and atraumatic. Pupils are equal and reactive. The nares are patent. Oropharynx is clear without lesions. NECK: Supple without lymphadenopathy. Traches midline. HEART: S1, S2. Regular rate and rhythm. LUNGS: No crackles or wheezes are heard. ABDOMEN: Soft, nontender, nondistended with good bowel sounds. No peritoneal signs. No palpable organomegaly or masses. EXTREMITIES: Normal skin color and turgor. No cyanosis, rash, ulceration, clubbing or edema. Radial pedal pulses are 2/4 bilaterally. NEUROLOGICAL: No focal deficits. Strength and sensation are grossly intact. Results CBC & Chem 7: 06/07/16 20:30 06/07/16 20:30 Labs: Abnormal Lab Results - Last 24 Hours (Table) 06/07/16 06/07/16 06/07/16 Range/Units 17:16 18:10 19:43 WBC (3.8-10.6) k/uL Hgb (13.0-17.5) gm/dL Hct (39.0-53.0) % MCH (25.0-35.0) pg MCHC (31.0-37.0) g/dL Neutrophils # (1.3-7.7) k/uL Glucose (74-99) mg/dL POC Glucose (mg/dL) 146 H 152 H 183 H (75-99) mg/dL Urine Protein (Negative) Urine Glucose (UA) (Negative) Urine Ketones (Negative) Urine WBC (0-5) /hpf Urine Bacteria (None) /hpf Hyaline Casts (0-2) /lpf Urine Mucus (None) /hpf 06/07/16 06/07/16 06/08/16 Range/Units 20:30 20:30 04:00 WBC 10.9 H (3.8-10.6) k/uL Hgb 10.7 L (13.0-17.5) gm/dL Hct 35.4 L (39.0-53.0) % MCH 24.7 L (25.0-35.0) pg MCHC 30.1 L (31.0-37.0) g/dL Neutrophils # 8.4 H (1.3-7.7) k/uL Glucose 223 H (74-99) mg/dL POC Glucose (mg/dL) (75-99) mg/dL Urine Protein 1+ H (Negative) Urine Glucose (UA) 4+ H (Negative) Urine Ketones 2+ H (Negative) Urine WBC 6 H (0-5) /hpf Urine Bacteria Rare H (None) /hpf Hyaline Casts 4 H (0-2) /lpf Urine Mucus Many H (None) /hpf 06/08/16 06/08/16 Range/Units 06:17 12:43 WBC (3.8-10.6) k/uL Hgb (13.0-17.5) gm/dL Hct (39.0-53.0) % MCH (25.0-35.0) pg MCHC (31.0-37.0) g/dL Neutrophils # (1.3-7.7) k/uL Glucose (74-99) mg/dL POC Glucose (mg/dL) 337 H 286 H (75-99) mg/dL Urine Protein (Negative) Urine Glucose (UA) (Negative) Urine Ketones (Negative) Urine WBC (0-5) /hpf Urine Bacteria (None) /hpf Hyaline Casts (0-2) /lpf Urine Mucus (None) /hpf Assessment and Plan Plan: Impression Type 1 diabetes uncontrolled episodes of hyperglycemia Delusional behavior increased paranoia Legally blind Increasingly paranoid with paranoia and delusional irritability mood disorder Plan Continue with the Accu-Chek blood sugars using protocol for coverage Resume home dose Lantus monitor the response Continue with the recommendations by the psychiatric service defer to We'll see patient on an as-needed basis addressing medical issues as they arise The above dictated assessment and findings were discussed with Dr. Vickers Impression and the plan of care have been dictated as directed. Rosemarie Shirley nurse practitioner acting as a scribe for Dr. Vickers
[2016-06-08 16:52] LABS: Glucose,Whole Blood 281 mg/dL (75-99)
[2016-06-08 19:53] LABS: Glucose,Whole Blood 265 mg/dL (75-99)
[2016-06-08] MEDS: LATANOPROST 0.005% OPHTH DROPS 2.5 ML BTL BOTH EYES SCH ×2 (20:25→20:35)
[2016-06-08] MEDS: ATORVASTATIN 80 MG TAB PO SCH (20:25)
[2016-06-08] MEDS: VENLAFAXINE HCL ER 75 MG CAP PO SCH (20:25)
[2016-06-09 06:22] LABS: Glucose,Whole Blood 387 mg/dL (75-99)
[2016-06-09 06:43] VITALS: TEMP 97.8
[2016-06-09] MEDS: INSULIN GLARGINE 100 UNIT/ML 10 ML VIAL SQ SCH ×2 (08:16→10:11)
[2016-06-09] MEDS: INSULIN LISPRO (humaLOG) 300 UNIT/3 ML VIAL SQ SCH ×7 (08:16→20:39)
[2016-06-09] MEDS: PANTOPRAZOLE 40 MG TABLET PO SCH ×2 (08:20→18:13)
[2016-06-09] MEDS: LISINOPRIL 20 MG TAB PO SCH (08:20)
[2016-06-09] MEDS: METOPROLOL TARTRATE 50 MG TAB PO SCH ×2 (08:20→20:38)
[2016-06-09] MEDS: FAMOTIDINE 20 MG TAB PO SCH ×2 (08:20→18:13)
[2016-06-09] MEDS: carBAMazepine 200 MG TAB PO SCH ×2 (08:20→20:38)
[2016-06-09] MEDS: SERTRALINE 100 MG TAB PO SCH (08:20)
[2016-06-09] MEDS: VENLAFAXINE HCL ER 150 MG CAP PO SCH (08:21)
[2016-06-09] MEDS: TIMOLOL 0.5% OPHTH DROPS 5 ML BTL BOTH EYES SCH (09:04)
[2016-06-09] MEDS ORDERED: INSULIN GLARGINE 100 UNIT/ML 10 ML VIAL SQ ONE (10:10)
[2016-06-09 12:49] LABS: Glucose,Whole Blood 444 mg/dL (75-99)
[2016-06-09 12:49] LABS: Glucose,Whole Blood 453 mg/dL (75-99)
--- NOTE | 2016-06-09 13:29 | P.PN ---
Progress Note - Text CLINICAL PROBLEMS: Mr. Slater is a 30-year-old male who has history of diabetes and impairment He presented to unit involuntarily with a history of increasing paranoia and auditory hallucinations. 24 HOUR EVENTS: Yesterday, he ate 50% of lunch and about 5% of dinner. He refused nutritional supplement. He spends most of his time of fallen in bed and does not socialize with staff or peers. He does not attend therapeutic groups or activities. EXAMINATION: He was laying in bed and did not attempt to make eye contact. He appeared angry. He stated that he is not eating because he feels nauseous. He believes that he has memorized a out of the unit. We talked about allowing his family to visit him during mealtimes and agreed that he would feel more comfortable eating if his father was present. He again declined my recommendation for an antipsychotic medication. However, he will talk with his father and follow his father advice. I called his father and explain the difficulties that were having in getting him to consent to take an antipsychotic medication such as Haldol and the difficulties were having getting him to eat. His father agreed to talk to him about taking an antipsychotic. He can be present for some meals but not for every meal. He agreed to be present for dinner today. Daniel would not answer questions about his delusional beliefs, thoughts or perceptions. He did not appear to be responding to internal stimuli during our interview. He did not voluntarily express paranoid thoughts or delusional beliefs. PERTINENT DATA: His POC blood glucose today have been 387, 453 and 444 respectively. ASSESSMENT: He is angry and withdrawn refusing to eat or consent to antipsychotic medications. PLAN: Continue inpatient psychiatric hospitalization. Probate hearing for involuntary hospitalization scheduled for June 20 at 1:30 PM. Begin the antipsychotic such as haloperidol if following the family meeting he consents. Otherwise, begin antipsychotic after receive an involuntary treatment order. Decrease Effexor XR to 150 mg daily and continue to taper. Continue Tegretol 200 mg by mouth twice a day until we started an antipsychotic and taper it and discontinue. Continue sertraline 100 mg daily. Continue medications for his diabetes as recommended by the technology sales consultant. Order placed him to allow family to visit during mealtimes. Evaluate clinical status and response to treatment on a daily basis.
[2016-06-09] MEDS ORDERED: ONDANSETRON ODT 4 MG TAB PO PRN (15:10)
[2016-06-09 17:42] LABS: Glucose,Whole Blood 316 mg/dL (75-99)
[2016-06-09] MEDS ORDERED: TRIMETHOBENZAMIDE 100 MG/ML 2 ML VIAL IM PRN (19:07)
[2016-06-09 20:31] LABS: Glucose,Whole Blood 263 mg/dL (75-99)
[2016-06-09] MEDS: LATANOPROST 0.005% OPHTH DROPS 2.5 ML BTL BOTH EYES SCH (20:38)
[2016-06-09] MEDS: ATORVASTATIN 80 MG TAB PO SCH (20:38)
[2016-06-09 20:50] VITALS: RESP 18
--- NOTE | 2016-06-09 20:54 | XR ---
Abdomen HISTORY: Abdominal pain Frontal view of the abdomen submitted on 2 images Bones are within normal limits. There is no evident bowel obstruction or pneumoperitoneum. Lung bases are not included on the exam. No pathologic calcification. impression: Nonobstructive bowel gas pattern.
[2016-06-09 22:05] VITALS: BP 132/76; PULSE 101
[2016-06-09 23:45] LABS: Glucose,Whole Blood 214 mg/dL (75-99)
--- NOTE | 2016-06-20 08:29 | P.DS ---
Providers Date of admission: 06/07/16 09:20 Attending physician: Wisam Davey MD Consults: 06/07/16 10:31 Consult Physician Routine Consulting Provider: Wisam Vickers Consult Reason/Comments: history and physical Do you want consulting provider notified?: Yes 06/09/16 19:05 Consult Physician Urgent Consulting Provider: Lianna Odom Consult Reason/Comments: gastrostenosis-N/V not eating and is diabetic and bs high Do you want consulting provider notified?: Yes Primary care physician: Stated None - Discharge Diagnosis(es) (1) Diabetic gastroparesis associated with type 1 diabetes mellitus Status: Acute Priority: High (2) Type 1 diabetes mellitus Status: Chronic Priority: High (3) Nausea & vomiting Status: Acute Priority: High (4) Psychosis Status: Chronic Priority: Medium Hospital Course: indra Slater is a 30-year-old legally blind male who [facility] with auditory hallucinations, delusional beliefs and increasing paranoia. He has a history of insulin-dependent diabetes mellitus and his serum glucose was 390 on presentation to the ER. He was admitted to medicine service with diagnosis of diabetic ketoacidosis. Psychiatry consulted while he was on medicine and recommended a transfer to the psychiatric unit when medically stable. I interviewed him and his father after he was admitted to medicine service. He provided little information. Similarly, he provided little information during our interview admission interview. He complained about the transfer to the psychiatric unit stating that he did not agree to come here. I explained involuntary admission process. His father provided much of the history. His father described a marked change his behavior over the 2-3 weeks prior to admission. He stated that Daniel has become paranoid. He believes that people were outside the house and on the roof of the house spying on him. His level of paranoia was so extreme that his father covered the álvaro light in his room with cardboard to block people from potentially looking to the álvaro light. However, Daniel continue believed that people were spying and video recording him while he was in the house. He became so paranoid about his privacy that he refused to go the bathroom and began to soil himself. He believed that people in the local town were coming to "get him". About 2 weeks prior to admission he took a shovel from the barn "to teach the children across the road a lesson". He was paranoid about their behavior. His father took to shuffle away to prevent him from harming or injuring the children. Prior to admission he called his parents while they were away from the house acutely agitated. He alleged that people have broken into the house. When they came home he had locked himself in a room with knives. They have since locked away the knives and guns in the house. His father has observed him talking to people who were not present. His parents have become so concerned about his paranoia and possible danger to others that they not leave him home alone unsupervised. His father would not take him home from the medicine unit until we receive psychiatric treatment. According to his father he has a history of depression and has received mental health treatment since he was approximately 13 years old. He had a psychiatrist at [facility] in [facility]. His current psychiatric medications include Tegretol 200 mg twice a day, Effexor 150 mg twice a day and sertraline 100 mg daily. His father stated he complained to his outpatient psychiatrist about the change in Tani's behavior but the psychiatrist made no change in the treatment plan. His parents are in the process of switching his care to the [facility] in [facility]. His father denied prior episodes of paranoia, delusional thinking and visual and auditory hallucinations. He has had no prior psychiatric hospitalizations. We admitted him to the psychiatric unit involuntarily under the care of this typewriters functional tester. We completed the Clinical Certificate in support of the involuntary admission and submitted the Petition and supporting clinical certificates stability court. We provided a biopsychosocial assessment. The dairy feed sales consultant completed the initial physical exam and medical history and diagnosed type 1 diabetes uncontrolled with episode of hypoglycemia and visual impairment and recommended to continue with the home dose of Lantus. His POC glucose ranged from 183-453 and he received coverage with Humalog as per protocol. We initially provided one-to-one supervision due to his visual impairment, medical problems and paranoia. He would would not come out of his room. He would not eat but drink fluids offered by staff. On 06/09/2016 he had coffee ground emesis. Medicine evaluated him and transferred him to the ICU for evaluation of gastroparesis and a GI bleed. Patient Condition at Discharge: Undetermined Plan - Discharge Summary Discharge Medication List Atorvastatin [Lipitor] 80 mg PO HS 06/04/16 [History] Gabapentin [Neurontin] 800 mg PO TID PRN 06/04/16 [History] LORazepam [Ativan] 0.25 - 0.5 mg PO BID PRN 06/04/16 [History] Latanoprost [Xalatan 0.005%] 1 drop BOTH EYES HS 06/04/16 [History] Lisinopril [Zestril] 20 mg PO DAILY 06/04/16 [History] Metoprolol Tartrate [Lopressor] 100 - 150 mg PO BID 06/04/16 [History] Pantoprazole Sodium [Protonix] 40 mg PO AC-BID 06/04/16 [History] Ranitidine HCl [Zantac] 150 mg PO AC-BID 06/04/16 [History] Sertraline [Zoloft] 100 mg PO DAILY 06/04/16 [History] Timolol 0.5% Ophth Soln [Timoptic 0.5% Ophth Soln] 1 drop BOTH EYES DAILY [History] Venlafaxine HCl [Effexor XR] 150 mg PO BID 06/04/16 [History] carBAMazepine [TEGretol] 200 mg PO BID 06/04/16 [History] cloNIDine 0.1 MG/24HR PATCH [Catapres-TTS] 1 patch TRANSDERM WE 06/04/16 [ History] INSULIN LISPRO (humaLOG) [humaLOG (formulary)] 10 unit SQ ACHS vial 06/14/16 [ Rx] Insulin Glargine [Lantus] 30 unit SQ DAILY #1 vial 06/14/16 [Rx] Metoclopramide [Reglan] 10 mg PO ACHS #120 tab 06/14/16 [Rx] Pantoprazole [Protonix] 40 mg PO AC-BID tablet. 06/14/16 [Rx] Venlafaxine HCl ER [Effexor XR] 75 mg PO DAILY #30 cap.er.24h 06/14/16 [Rx] Discharge Disposition: TRANSFER TO SHORT TERM HOSP
== END 2016-06-09 23:59 | disposition short-term general hospital (02) | DRG 885 ==
LOC: 3MHU 09:20 → 6ICU 06-09 23:30 → 3MHU 06-09 23:42
PROVIDERS: ADMIT Psychiatry & Neurology Psychiatry; ATTEND Psychiatry & Neurology Psychiatry
DX: F22 Delusional disorders (principal); K31.84 Gastroparesis; E10.40 Type 1 diabetes mellitus with diabetic neuropathy, unspecified; E10.65 Type 1 diabetes mellitus with hyperglycemia; E10.43 Type 1 diabetes mellitus with diabetic autonomic (poly)neuropathy; H54.8 Legal blindness, as defined in USA; H40.9 Unspecified glaucoma; F17.200 Nicotine dependence, unspecified, uncomplicated; Z79.4 Long term (current) use of insulin; Z79.899 Other long term (current) drug therapy; F41.9 Anxiety disorder, unspecified
CPT/HCPCS: 74000; 80053; 80156; 80306; 81001; 83605; 85025

== ENCOUNTER 2016-06-09 23:40 | Inpatient (IN) | payer OTHER ==
[2016-06-10 00:55] LABS: Basophils % (A) 0 %; CH 24.7; CHCM 31.2; Eosinophils % (A) 0 %; HCT 38.5 % (39.0-53.0); HDW 3.15; HGB 12.2 gm/dL (13.0-17.5); Hypochromasia Moderate; Luc % (Auto) 3; Lymphocytes # (A) 2.2 k/uL (1.0-4.8); Lymphocytes % (A) 17 %; MCH 25.1 pg (25.0-35.0); MCHC 31.7 g/dL (31.0-37.0); MCV 79.3 fL (80.0-100.0); Mean Platelet Volume 6.7; Monocytes # (A) 0.8 k/uL (0-1.0); Monocytes % (A) 6 %; Neutrophils # (A) 9.4 k/uL (1.3-7.7); Neutrophils % (A) 73 %; RBC 4.85 m/uL (4.30-5.90); RDW 13.6 % (11.5-15.5); WBC 12.9 k/uL (3.8-10.6); WBC (Perox) 13.57
[2016-06-10 01:14] LABS: INR 1.3 (<1.1); Partial Thromboplastin Time 22.7 sec (22.0-30.0); Prothrombin Time 12.4 sec (9.0-12.0)
[2016-06-10] MEDS ORDERED: ONDANSETRON 4 MG/2 ML VIAL IVP PRN (01:36)
[2016-06-10 01:43] LABS: Anion Gap 23 mmol/L; Blood Urea Nitrogen 27 mg/dL (9-20); Carbon Dioxide 12 mmol/L (22-30); Chloride 102 mmol/L (98-107); Glucose 206 mg/dL (74-99); Non-African American GFR(MDRD) >60 (>60 ml/min/1.73 sqM); Potassium 4.8 mmol/L (3.5-5.1); Sodium 137 mmol/L (137-145)
[2016-06-10] MEDS ORDERED: GABAPENTIN 400 MG CAP PO PRN (03:12)
[2016-06-10 05:22] LABS: Basophils % (A) 0 %; CH 24.4; CHCM 29.9; Eosinophils % (A) 0 %; HCT 40.5 % (39.0-53.0); HGB 12.3 gm/dL (13.0-17.5); Hypochromasia Marked; Luc % (Auto) 3; Lymphocytes % (A) 13 %; MCH 24.9 pg (25.0-35.0); MCHC 30.4 g/dL (31.0-37.0); MCV 81.8 fL (80.0-100.0); Mean Platelet Volume 6.9; Monocytes # (A) 0.7 k/uL (0-1.0); Monocytes % (A) 5 %; Neutrophils # (A) 12.8 k/uL (1.3-7.7); Neutrophils % (A) 80 %; RBC 4.96 m/uL (4.30-5.90); RDW 13.9 % (11.5-15.5)
[2016-06-10 05:34] LABS: Anion Gap 25 mmol/L; Blood Urea Nitrogen 26 mg/dL (9-20); Calcium 9.9 mg/dL (8.4-10.2); Carbon Dioxide 11 mmol/L (22-30); Chloride 100 mmol/L (98-107); Glucose 293 mg/dL (74-99); Magnesium 2.2 mg/dL (1.6-2.3); Non-African American GFR(MDRD) >60 (>60 ml/min/1.73 sqM); Phosphorous 4.7 mg/dL (2.5-4.5); Potassium 4.9 mmol/L (3.5-5.1); Sodium 136 mmol/L (137-145)
[2016-06-10] MEDS ORDERED: FAMOTIDINE 20 MG TAB PO SCH (07:30)
[2016-06-10] MEDS ORDERED: INSULIN LISPRO (humaLOG) 300 UNIT/3 ML VIAL SQ SCH (07:30)
[2016-06-10 07:56] LABS: Glucose,Whole Blood 422 mg/dL (75-99)
[2016-06-10] MEDS ORDERED: INSULIN REGULAR BOLUS (FROM DRIP BAG) IV ONE (08:07)
[2016-06-10] MEDS ORDERED: Magnesium Replacement Protocol 1 EACH MISC MISCELLANE PRN (08:07)
[2016-06-10] MEDS ORDERED: SODIUM CHLORIDE 0.9% 1,000 ML IV ONE (08:07)
[2016-06-10] MEDS ORDERED: Potassium Replacement Protocol 1 EACH MISC MISCELLANE PRN (08:07)
[2016-06-10] MEDS ORDERED: SODIUM CHLORIDE 0.9% 1,000 ML IV SCH (08:15)
[2016-06-10] MEDS: INSULIN REGULAR 100 UNIT in SODIUM CHLORIDE 0.9% 100 ML IV SCH (08:23)
[2016-06-10] MEDS: D5-0.45% NACL WITH KCL 20MEQ/L 1,000 ML IV SCH ×3 (08:27→17:08)
[2016-06-10] MEDS: PANTOPRAZOLE 40 MG/10 ML VIAL IVP SCH ×2 (08:30→20:32)
[2016-06-10 08:51] LABS: Glucose,Whole Blood 414 mg/dL (75-99)
[2016-06-10] MEDS ORDERED: VENLAFAXINE HCL ER 150 MG CAP PO SCH (09:00)
[2016-06-10 10:02] LABS: Glucose,Whole Blood 274 mg/dL (75-99)
[2016-06-10] MEDS: METOPROLOL TARTRATE 50 MG TAB PO SCH ×2 (10:15→20:33)
[2016-06-10] MEDS: SERTRALINE 100 MG TAB PO SCH (10:15)
[2016-06-10] MEDS: carBAMazepine 200 MG TAB PO SCH ×2 (10:15→20:34)
[2016-06-10] MEDS: TIMOLOL 0.5% OPHTH DROPS 5 ML BTL BOTH EYES SCH ×2 (10:15→20:32)
[2016-06-10] MEDS: LISINOPRIL 20 MG TAB PO SCH (10:15)
--- NOTE | 2016-06-10 10:23 | CONS ---
DATE OF CONSULTATION: 06/10/2016 HISTORY OF PRESENT ILLNESS: The patient is a 30-year-old white male with long-standing history of diabetes mellitus who was recently admitted to the hospital on the fifth floor for acute diabetic ketoacidosis and psychiatric behavior. The patient was transferred to the mental health unit 2 days ago after the diabetic ketoacidosis was adequately treated. While in the mental health unit, the patient started complaining of abdominal pain, nausea, vomiting all day yesterday and apparently last night he had one episode of coffee-ground emesis and hence he was transferred to the intensive care unit. The patient this morning says that he still having abdominal pain. He feels extremely nauseated. He did not throw up since last night. He denies any fever, chills. No bowel movements. His hemoglobin yesterday was 12.3 and repeat hemoglobin this morning was 12.4 g/dL. No prior history of acute upper GI bleed. His past medical history is significant for hypertension, long-standing history of diabetes mellitus, peripheral neuropathy, anxiety, depression, GERD. Medications at home include atorvastatin, Neurontin, Humalog, Ativan, Zestril, Lopressor, Protonix, Zoloft, Effexor, Tegretol, clonidine. Allergies to CEFAZOLIN, CYMBALTA and LYRICA. SOCIAL HISTORY: Chronic smoker. No alcohol use. FAMILY HISTORY: Unremarkable. REVIEW OF SYSTEMS: CARDIOPULMONARY: He denies any chest pain or shortness of breath. GENITOURINARY: No dysuria or hematuria. MUSCULOSKELETAL: Unremarkable. SKIN: Unremarkable. ENDOCRINE: Unremarkable other than long-standing history of diabetes mellitus. ENT/Vision: Unremarkable. CONSTITUTIONAL: No recent weight loss. No fever, chills, night sweats. PSYCHIATRY: As mentioned earlier. On physical examination, he appears comfortable in no apparent distress. Vital signs are stable. Blood is 138/70, pulse rate 126, respirations 22, temperature 97.8. HEENT: Unremarkable. Conjunctivae pink. Sclerae anicteric. Oral cavity, no lesions. NECK: No JVD or lymph node enlargement. Chest was clear to auscultation. HEART: Regular rate and rhythm. ABDOMEN: Soft. Bowel sounds are positive. No organomegaly. Mild tenderness in the epigastric area. EXTREMITIES: No pedal edema. SKIN: No rashes. NEURO: He is alert and oriented x3. No focal deficits. Labs from this morning WBC 16, hemoglobin 12.3, platelets are normal. PT 12.4. INR is 1.3. Sodium 136, potassium 4.9, chloride 100, CO2 of 11. Blood sugar 422. IMPRESSION: This is a patient with long-standing history of diabetes mellitus who was admitted to the hospital with diabetic ketoacidosis 3 days ago and was treated adequately and was transferred to the mental health unit because of psychotic behavior. While he was in mental health unit yesterday he started developing more abdominal pain and worsening nausea, vomiting and one episode of coffee-ground emesis and hence he was transferred to the intensive care unit. In the ICU, he had labs done. Hemoglobin was 12.3 and this morning it is again 12.3 g/dL. He did not have any further episodes of upper gastrointestinal bleed. Presently he does have electrolytes abnormality with anion gap acidosis consistent with recurrent diabetic ketoacidosis. RECOMMENDATIONS: 1. Address the diabetic ketoacidosis. 2. Will start him on a clear liquid diet. 3. Repeat CBC in the morning. 4. Protonix 40 mg q.12 hours. 5. Based on his clinical course, I will consider if he needs an upper endoscopy during this hospitalization. At this time, I will follow the patient closely during his hospital stay. Thank you for this consultation.
[2016-06-10 10:57] LABS: Basophils % (A) 0 %; CHCM 27.6; Eosinophils % (A) 0 %; HCT 39.5 % (39.0-53.0); HDW 2.74; HGB 11.3 gm/dL (13.0-17.5); Hypochromasia Marked; Luc # (Auto) 0.25; Luc % (Auto) 2; Lymphocytes # (A) 1.2 k/uL (1.0-4.8); Lymphocytes % (A) 10 %; MCH 24.8 pg (25.0-35.0); MCHC 28.5 g/dL (31.0-37.0); Monocytes # (A) 0.6 k/uL (0-1.0); Monocytes % (A) 5 %; Neutrophils # (A) 9.7 k/uL (1.3-7.7); Neutrophils % (A) 83 %; RBC 4.55 m/uL (4.30-5.90); RDW 13.8 % (11.5-15.5); WBC 11.7 k/uL (3.8-10.6)
[2016-06-10 11:05] LABS: MCV 86.9 fL (80.0-100.0)
[2016-06-10 11:10] LABS: Blood Urea Nitrogen 24 mg/dL (9-20); Chloride 108 mmol/L (98-107); Glucose 308 mg/dL (74-99); Non-African American GFR(MDRD) >60 (>60 ml/min/1.73 sqM); Potassium 4.6 mmol/L (3.5-5.1); Sodium 140 mmol/L (137-145)
[2016-06-10 11:11] LABS: Glucose,Whole Blood 271 mg/dL (75-99)
[2016-06-10 11:16] LABS: Anion Gap 25 mmol/L
[2016-06-10 11:19] LABS: Carbon Dioxide 7 mmol/L (22-30)
[2016-06-10 12:03] LABS: Glucose,Whole Blood 273 mg/dL (75-99)
[2016-06-10 13:10] LABS: Glucose,Whole Blood 212 mg/dL (75-99)
[2016-06-10] MEDS: METOCLOPRAMIDE 5 MG/ML 2 ML VIAL IVP SCH ×2 (13:15→18:07)
[2016-06-10 13:41] LABS: Hemoglobin A1C 8.9 % (4.2-6.1)
[2016-06-10 13:56] LABS: Glucose,Whole Blood 203 mg/dL (75-99)
--- NOTE | 2016-06-10 14:33 | HP ---
DATE OF ADMISSION: SUBJECTIVE: This is a 30-year-old white male with acute hematemesis. HISTORY OF PRESENT ILLNESS: This 30-year-old white male with long-standing diabetes mellitus was transferred from the psychiatric unit at the hospital back to the ICU as he had a huge episode of emesis with coffee-ground large bucket full last night. He was having abdominal pain and poor eating for 2 to 3 days after having diabetic ketoacidosis. He was on the psych chery for psychotic depression. PAST MEDICAL HISTORY: Hypertension, diabetes mellitus, peripheral neuropathy, anxiety, depression, GERD. Medications at home include: 1. Neurontin. 2. Humalog. 3. Ativan. 4. Zestril. 5. Lopressor. 6. Protonix. 7. Zoloft. 8. Effexor. 9. Tegretol. 10. Clonidine. ALLERGIES: CEFAZOLIN, CYMBALTA, LYRICA. SOCIAL HISTORY: Chronic smoker. No alcohol. FAMILY HISTORY: Unremarkable. REVIEW OF SYSTEMS: PSYCH: ( ). : Negative. MUSCULOSKELETAL: Negative. INTEGUMENT: Negative. ENDOCRINE: Diabetes mellitus. ENT: Unremarkable. CONSTITUTIONAL: Negative. PHYSICAL EXAM: Blood pressure 130s over 70s. Pulse rate 120s. Respiratory rate 16 to 20. Temp 97.8. HEENT: Unremarkable. NECK: Supple. No adenopathy. Lungs are clear. HEART: S1, S2. ABDOMEN: Soft. Bowel sounds are positive. Tenderness diffuse across the epigastric area. Increased bowel sounds. EXTREMITIES: No cyanosis, clubbing, edema, White count 16, hemoglobin 12.3. INR 1.3. Sodium 136, potassium 4.9, CO2 of 11. Sugar 422. ASSESSMENT: 1. Diabetic ketoacidosis. 2. Insulin-dependent diabetes mellitus. 3. Acute coffee ground emesis. Monitoring of hemoglobin will be checked. Diabetic ketoacidosis will be rechecked with insulin drip due to recurrent treatments and clear liquid diabetic ketoacidosis, possibly history of gastric stenosis. Protonix will be given. Monitor for possible endoscopy at this time as history of gastric stenosis.
[2016-06-10 15:04] LABS: Glucose,Whole Blood 180 mg/dL (75-99)
[2016-06-10 15:50] LABS: Anion Gap 16 mmol/L; Blood Urea Nitrogen 22 mg/dL (9-20); Carbon Dioxide 12 mmol/L (22-30); Chloride 114 mmol/L (98-107); Glucose 183 mg/dL (74-99); Non-African American GFR(MDRD) >60 (>60 ml/min/1.73 sqM); Phosphorous 2.5 mg/dL (2.5-4.5); Sodium 142 mmol/L (137-145)
[2016-06-10 15:51] LABS: Glucose,Whole Blood 150 mg/dL (75-99)
[2016-06-10 15:52] LABS: Potassium 5.8 mmol/L (3.5-5.1)
[2016-06-10 16:44] LABS: Amorphous Sediment,Urine Rare /hpf; Appearance,Urine Clear (Clear); Bilirubin,Urine 1+ (Negative); Glucose,Urine (UA) 4+ (Negative); Leukocyte Esterase,Urine Negative (Negative); Mucus,Urine Rare /hpf; Nitrite,Urine Negative (Negative); PH, Urine 5.5 (5.0-8.0); Particle Count 1825; Protein,Urine 1+ (Negative); Specific Gravity,Urine 1.012 (1.001-1.035); Squamous Epithelial Cell,Urine 1 /hpf (0-4); UA Billing (MACRO vs. MICRO) MICRO; WBC,Urine 2 /hpf (0-5)
[2016-06-10 16:45] LABS: Ketones,Urine 4+ (Negative)
[2016-06-10 17:03] LABS: Glucose,Whole Blood 148 mg/dL (75-99)
--- NOTE | 2016-06-10 17:39 | CONS ---
DATE OF CONSULTATION: Tani Slater is a 30-year-old male who had been on the psychiatry unit for suicidal ideation. He subsequently was transferred up to the ICU as he had a large emesis which was coffee ground. He was subsequently admitted to the ICU for further evaluation. His past medical history is positive for diabetes mellitus, I believe, type I, hypertension, neuropathy, anxiety, depression, and gastroesophageal reflux disease. SOCIAL HISTORY: Patient is a chronic smoker, does not drink alcohol excessively. Family history is noncontributory. Medications prior to his admission were clonidine, Tegretol, venlafaxine, timolol, sertraline, ranitidine, pantoprazole, metoprolol, lisinopril, Zestril, Xalatan, Ativan, Lantus insulin, Neurontin, Lipitor and Humalog KwikPen. Review of systems is noncontributory. The patient is quiet almost nonverbal, does not give me much of a history. On physical examination, his blood pressure was 134/89, respiratory rate 18, pulse rate of 138, temperature 98.7. O2 sat on room air was 100%. HEENT reveals pupils that are equal. Mucous membranes are dry. Chest is clear. Cardiovascular system reveals an S1, S2. Abdomen was soft. There was no edema. Labs revealed white count of 12.9, hemoglobin 12.2. Sodium 137, potassium 4.8, chloride 102, bicarb 12, BUN 27, creatinine 1.2. Glucose of 206. Acetone positive. Anion gap of 25. IMPRESSION AT THIS TIME: 1. Acute emesis ( ) coffee ground due to gastrointestinal bleed. 2. Known history of gastroparesis with recent workup and treatment at another institution. 3. Anxiety, depression with history of suicidal ideation. 4. Severe anion gap metabolic acidosis most likely secondary to diabetic ketoacidosis. In part this may be due to starvation ketosis as well. At this point in time, keep the patient on insulin drip, fluid resuscitate the patient with intravenous fluids aggressively per DKA protocol. Maintain his potassium. Follow his electrolytes. He may require supplemental bicarb if he does not start to correct with this regimen. Gastroenterology has been consulted and the patient may require other medications for gastroparesis. I did loan counselor the patient and the patient's family regarding his condition and this approach. Would keep the patient on his current medications including continue Protonix at this time. Continue his antidepressant medications. His prognosis at this time is guarded.
[2016-06-10 18:06] LABS: Glucose,Whole Blood 155 mg/dL (75-99)
[2016-06-10 19:17] LABS: Glucose,Whole Blood 136 mg/dL (75-99)
[2016-06-10] MEDS ORDERED: DEXTROSE 5%-0.45% NACL 1,000 ML IV SCH (19:45)
[2016-06-10 20:25] LABS: Glucose,Whole Blood 129 mg/dL (75-99)
[2016-06-10] MEDS: ATORVASTATIN 80 MG TAB PO SCH (20:33)
[2016-06-10 20:43] LABS: Anion Gap 13 mmol/L; Blood Urea Nitrogen 17 mg/dL (9-20); Carbon Dioxide 14 mmol/L (22-30); Chloride 111 mmol/L (98-107); Non-African American GFR(MDRD) >60 (>60 ml/min/1.73 sqM); Phosphorous 2.5 mg/dL (2.5-4.5); Potassium 4.4 mmol/L (3.5-5.1); Sodium 138 mmol/L (137-145)
[2016-06-10 21:00] LABS: Glucose,Whole Blood 140 mg/dL (75-99)
[2016-06-10] MEDS: LATANOPROST 0.005% OPHTH DROPS 2.5 ML BTL BOTH EYES SCH (21:54)
[2016-06-10 21:57] LABS: Glucose,Whole Blood 176 mg/dL (75-99)
[2016-06-10 22:58] LABS: Glucose,Whole Blood 186 mg/dL (75-99)
[2016-06-10 23:45] LABS: Glucose,Whole Blood 208 mg/dL (75-99)
[2016-06-11 00:13] LABS: Basophils % (A) 0 %; CH 24.7; CHCM 30.8; Eosinophils % (A) 0 %; HCT 33.3 % (39.0-53.0); HDW 2.94; HGB 10.1 gm/dL (13.0-17.5); Hypochromasia Moderate; Luc % (Auto) 4; Lymphocytes % (A) 16 %; MCH 24.5 pg (25.0-35.0); MCHC 30.4 g/dL (31.0-37.0); Mean Platelet Volume 6.5; Monocytes # (A) 0.8 k/uL (0-1.0); Monocytes % (A) 6 %; Neutrophils # (A) 8.7 k/uL (1.3-7.7); Neutrophils % (A) 73 %; RBC 4.14 m/uL (4.30-5.90); RDW 14.1 % (11.5-15.5); WBC (Perox) 12.14
[2016-06-11 00:26] LABS: Anion Gap 10 mmol/L; Blood Urea Nitrogen 15 mg/dL (9-20); Calcium 8.5 mg/dL (8.4-10.2); Carbon Dioxide 15 mmol/L (22-30); Chloride 110 mmol/L (98-107); Glucose 197 mg/dL (74-99); MCV 80.6 fL (80.0-100.0); Magnesium 1.9 mg/dL (1.6-2.3); Non-African American GFR(MDRD) >60 (>60 ml/min/1.73 sqM); Phosphorous 2.6 mg/dL (2.5-4.5); Sodium 135 mmol/L (137-145)
[2016-06-11 00:58] LABS: Glucose,Whole Blood 205 mg/dL (75-99)
[2016-06-11] MEDS: INSULIN REGULAR 100 UNIT in SODIUM CHLORIDE 0.9% 100 ML IV SCH ×2 (01:15→12:32)
[2016-06-11] MEDS: METOCLOPRAMIDE 5 MG/ML 2 ML VIAL IVP SCH ×5 (01:15→23:19)
[2016-06-11] MEDS: D5-0.45% NACL WITH KCL 20MEQ/L 1,000 ML IV SCH ×4 (01:46→22:15)
[2016-06-11 02:20] LABS: Glucose,Whole Blood 216 mg/dL (75-99)
[2016-06-11 03:12] LABS: Glucose,Whole Blood 200 mg/dL (75-99)
[2016-06-11 05:05] LABS: Glucose,Whole Blood 217 mg/dL (75-99)
[2016-06-11 05:53] LABS: Basophils % (A) 0 %; CH 24.9; CHCM 30.8; Eosinophils # (A) 0.1 k/uL (0-0.7); Eosinophils % (A) 0 %; HCT 33.8 % (39.0-53.0); HDW 2.96; HGB 10.2 gm/dL (13.0-17.5); Hypochromasia Moderate; Luc # (Auto) 0.39; Luc % (Auto) 3; Lymphocytes # (A) 1.7 k/uL (1.0-4.8); Lymphocytes % (A) 12 %; MCH 24.5 pg (25.0-35.0); MCHC 30.2 g/dL (31.0-37.0); MCV 80.9 fL (80.0-100.0); Mean Platelet Volume 6.7; Monocytes # (A) 0.7 k/uL (0-1.0); Monocytes % (A) 5 %; Neutrophils # (A) 10.8 k/uL (1.3-7.7); Neutrophils % (A) 79 %; RBC 4.18 m/uL (4.30-5.90); RDW 14.1 % (11.5-15.5); WBC 13.7 k/uL (3.8-10.6); WBC (Perox) 13.81
[2016-06-11 06:17] LABS: ALT 30 U/L (21-72); AST 18 U/L (17-59); Alkaline Phosphatase 126 U/L (38-126); Anion Gap 10 mmol/L; Blood Urea Nitrogen 12 mg/dL (9-20); Calcium 8.5 mg/dL (8.4-10.2); Carbon Dioxide 17 mmol/L (22-30); Chloride 109 mmol/L (98-107); Glucose 211 mg/dL (74-99); Magnesium 1.9 mg/dL (1.6-2.3); Non-African American GFR(MDRD) >60 (>60 ml/min/1.73 sqM); Phosphorous 2.4 mg/dL (2.5-4.5); Potassium 3.8 mmol/L (3.5-5.1); Sodium 136 mmol/L (137-145); Total Bilirubin 0.3 mg/dL (0.2-1.3)
[2016-06-11] MEDS ORDERED: Phosphorus Replacement Protoco 1 EACH MISC MISCELLANE PRN ×2 (06:28→23:47)
[2016-06-11] MEDS ORDERED: POTASSIUM PHOSPHATE 10 MMOL in SODIUM CHLORIDE 0.9% 250 ML IV ONE (06:28)
[2016-06-11 07:53] LABS: Glucose,Whole Blood 198 mg/dL (75-99)
[2016-06-11] MEDS: carBAMazepine 200 MG TAB PO SCH ×2 (08:09→20:32)
[2016-06-11] MEDS: METOPROLOL TARTRATE 50 MG TAB PO SCH ×2 (08:09→20:32)
[2016-06-11] MEDS: PANTOPRAZOLE 40 MG/10 ML VIAL IVP SCH ×2 (08:09→20:32)
[2016-06-11] MEDS: SERTRALINE 100 MG TAB PO SCH (08:09)
[2016-06-11] MEDS: LISINOPRIL 20 MG TAB PO SCH (08:10)
[2016-06-11 08:54] LABS: Glucose,Whole Blood 171 mg/dL (75-99)
[2016-06-11] MEDS ORDERED: VENLAFAXINE HCL ER 150 MG CAP PO SCH (09:00)
--- NOTE | 2016-06-11 09:58 | PN ---
DATE OF SERVICE: 06/11/2016 Patient is 30-year-old white male admitted to the hospital with acute DKA and severe nausea, vomiting for the last 2 days' duration. The patient had multiple hospitalizations over the last few months with intractable nausea, vomiting, and diabetic gastroparesis. He was at [facility] 2 weeks ago. He was transferred to [facility] where he was discharged 10 days ago for the same reason. Presently in ICU on IV insulin drip and blood sugars are gradually improving and acidosis is resolving. He continues to have persistent nausea despite being on Reglan to 5 mg every 6 hours. He also was on Zofran with no help. He still has episodes of emesis. Denies any abdominal pain. No coffee-ground emesis. On physical examination, he appears comfortable in no apparent distress. VITAL SIGNS: Stable blood pressure 138/66, pulse rate 103, temperature 97. HEENT: Examination unremarkable. Conjunctivae pink. Scleral anicteric. Oral cavity, no lesions. NECK: No JVD or lymph node enlargement. Chest was clear to auscultation. HEART: Regular rate and rhythm. ABDOMEN: Soft, nontender, nondistended. Bowel sounds are positive. No organomegaly. EXTREMITIES: No pedal edema. SKIN: No rashes. NEURO: He is alert and oriented x3. No focal deficits. LABS: WBC 12, hemoglobin 11, platelets are 352. Basic metabolic panels was within normal limits. Blood sugars are 110 today. IMPRESSION: 1. Acute diabetic ketoacidosis, resolving. 2. Severe intense nausea, vomiting, and history of diabetic gastroparesis. The patient is presently on IV Reglan 5 mg every 6 hours and Zofran with no help. RECOMMENDATIONS: Discontinue Zofran and increase IV Reglan to 10 mg q.6 hours. Also we will start on Phenergan every 6 hours alternating with Reglan. If no help I will consider IV azithromycin tomorrow. In the meantime, if he tolerates he can be given clear liquid diet and will follow him closely during his hospital stay.
[2016-06-11 10:02] LABS: Glucose,Whole Blood 180 mg/dL (75-99)
[2016-06-11 10:04] LABS: Anion Gap 13 mmol/L; Blood Urea Nitrogen 11 mg/dL (9-20); Calcium 8.5 mg/dL (8.4-10.2); Carbon Dioxide 15 mmol/L (22-30); Chloride 110 mmol/L (98-107); Glucose 193 mg/dL (74-99); Non-African American GFR(MDRD) >60 (>60 ml/min/1.73 sqM); Sodium 138 mmol/L (137-145)
[2016-06-11] MEDS: ERYTHROMYCIN IV 250 MG in SODIUM CHLORIDE 0.9% 250 ML IVPB SCH ×3 (10:30→23:19)
[2016-06-11 11:45] LABS: Glucose,Whole Blood 155 mg/dL (75-99)
--- NOTE | 2016-06-11 12:38 | PN ---
DATE OF SERVICE: 06/11/2016 Patient has been hemodynamically more stable. He continues to have emesis and is unable to eat. On physical examination, his blood pressure 128/78, respiratory rate 14, pulse 102 with temperature 98.1, O2 sat on room air is 95%. HEENT reveals pupils are equal. No jugular venous distention. Chest is clear. Cardiovascular system reveals S1 and S2. Abdomen is soft. There is no pedal edema. White count is 13.7, hemoglobin 10.2. Sodium 136, potassium 3.8, chloride 109, bicarbonate 17. Anion gap is 10. IMPRESSION: 1. Diabetic ketoacidosis. 2. Component of starvation ketosis. 3. Anxiety and depression. 4. Gastroparesis. 5. Possible psychiatric reasons for patient's vomiting and emesis. At this point in time, continue IV insulin, IV fluids D5 half normal with potassium in it. In regards to his GI bleed, watch his hemoglobin closely and continue Protonix.
[2016-06-11 13:10] LABS: Glucose,Whole Blood 163 mg/dL (75-99)
[2016-06-11 14:01] LABS: Glucose,Whole Blood 192 mg/dL (75-99)
[2016-06-11 14:32] LABS: Anion Gap 11 mmol/L; Blood Urea Nitrogen 10 mg/dL (9-20); Calcium 8.5 mg/dL (8.4-10.2); Carbon Dioxide 17 mmol/L (22-30); Chloride 110 mmol/L (98-107); Glucose 181 mg/dL (74-99); Non-African American GFR(MDRD) >60 (>60 ml/min/1.73 sqM); Potassium 3.8 mmol/L (3.5-5.1); Sodium 138 mmol/L (137-145)
[2016-06-11 15:21] LABS: Glucose,Whole Blood 166 mg/dL (75-99)
[2016-06-11] MEDS: POTASSIUM CHLORIDE 10 MEQ, LIDOCAINE 2% INJ 10 MG in SODIUM CHLORIDE 0.9% 100 ML IV SCH ×2 (15:23→16:14)
[2016-06-11 16:04] LABS: Glucose,Whole Blood 157 mg/dL (75-99)
[2016-06-11 17:39] LABS: Glucose,Whole Blood 164 mg/dL (75-99)
[2016-06-11 18:52] LABS: Anion Gap 9 mmol/L; Blood Urea Nitrogen 8 mg/dL (9-20); Calcium 8.6 mg/dL (8.4-10.2); Carbon Dioxide 17 mmol/L (22-30); Chloride 112 mmol/L (98-107); Glucose 158 mg/dL (74-99); Non-African American GFR(MDRD) >60 (>60 ml/min/1.73 sqM); Potassium 3.8 mmol/L (3.5-5.1); Sodium 138 mmol/L (137-145)
[2016-06-11 18:53] LABS: Glucose,Whole Blood 132 mg/dL (75-99)
[2016-06-11 20:13] LABS: Glucose,Whole Blood 172 mg/dL (75-99)
[2016-06-11] MEDS: LATANOPROST 0.005% OPHTH DROPS 2.5 ML BTL BOTH EYES SCH (20:32)
[2016-06-11] MEDS: ATORVASTATIN 80 MG TAB PO SCH (20:32)
--- NOTE | 2016-06-11 20:52 | CONS ---
DATE OF CONSULTATION: 06/11/2016 IDENTIFYING DATA: This is a 30-year-old male patient. HISTORY OF PRESENT ILLNESS: Mr. Slater was admitted to the intensive care unit as a transfer from the mental health unit. Psychiatric consult was ordered for follow-up. He was admitted to the inpatient psychiatric unit per chart history, with symptoms of auditory hallucinations, delusional thought content and increased paranoid thought content. Per chart history, he had thoughts that people were spying on him and also was displaying some agitation. Diagnosis was unspecified psychotic disorder. The plan was to taper the Effexor-XR and he has been maintained on the Zoloft and Tegretol and a psychotic medication treatment has been mentioned. Court hearing is pending. He was transferred to the ICU from the mental health unit due to concerns of coffee ground emesis. Patient states last time he vomited was this morning. He is on a clear liquid diet he states. He states that he feels better today. He relays that he is getting along well with the nurses and his family visited today. PSYCHIATRIC HISTORY: Per chart history began psychiatric treatment at age of 13. Most recently has been on Tegretol, Effexor-XR with plan to taper on sertraline. Per chart history, he is in the process of transferring services to [facility]. MEDICAL HISTORY: Insulin-dependent diabetes mellitus, blindness. CURRENT MEDICATIONS: 1. Lipitor. 2. Tegretol 200 mg b.i.d. 3. Catapres patch. 4. Erythromycin. 5. Neurontin. 6. Xalatan. 7. Zestril. 8. Ativan p.r.n. 9. Reglan. 10. Lopressor. 11. Zofran p.r.n. 12. Protonix. 13. Zoloft 100 mg daily. 14. Timoptic Effexor-XR 150 mg daily. Drug and alcohol history: He denies. Per chart history, had a history of abusing alcohol and dextromethorphan, went through a rehab treatment at [facility], has been abstinent since. SOCIAL HISTORY: Per chart history graduated high school, single. No children. Lives with his parents. Unemployed on disability. On mental status exam he is alert, seen in the intensive care unit. He is cooperative, overall. His answers are brief. His affect is restricted. His mood is described as "okay." He denies any thoughts of harm to self or others. He denies any bothersome or paranoid thoughts. He denies any auditory or visual hallucinations. He is oriented to the place, month, and the year, not the date, he is oriented to the day of week. IMPRESSIONS: Unspecified psychotic disorder by history. PLAN: We will taper Effexor-XR down to 75 mg daily. At this time, he is also on Zoloft and the Tegretol. Plan has been to taper the Effexor-XR. Per chart history, there is also a court hearing pending and antipsychotic treatment has been mentioned. Pending his court hearing, Dr. Davey will be following up with this patient starting tomorrow.
[2016-06-11 22:14] LABS: Glucose,Whole Blood 201 mg/dL (75-99)
[2016-06-11 23:21] LABS: Anion Gap 8 mmol/L; Blood Urea Nitrogen 7 mg/dL (9-20); Calcium 8.6 mg/dL (8.4-10.2); Carbon Dioxide 18 mmol/L (22-30); Chloride 112 mmol/L (98-107); Glucose 190 mg/dL (74-99); Magnesium 1.9 mg/dL (1.6-2.3); Non-African American GFR(MDRD) >60 (>60 ml/min/1.73 sqM); Phosphorous 1.9 mg/dL (2.5-4.5); Potassium 3.7 mmol/L (3.5-5.1); Sodium 138 mmol/L (137-145)
[2016-06-11 23:26] LABS: Glucose,Whole Blood 184 mg/dL (75-99)
[2016-06-12] MEDS ORDERED: POTASSIUM PHOSPHATE 10 MMOL in SODIUM CHLORIDE 0.9% 250 ML IV SCH ×2
[2016-06-12] MEDS ORDERED: Potassium Replacement Protocol 1 EACH MISC MISCELLANE PRN ×2 (00:11→05:46)
[2016-06-12] MEDS: SODIUM PHOSPHATE 10 MMOL in SODIUM CHLORIDE 0.9% 250 ML IVPB SCH ×2 (00:45→02:35)
[2016-06-12] MEDS ORDERED: POTASSIUM CHLORIDE ER 20 MEQ TAB.ER PO SCH ×2 (01:00→06:00)
[2016-06-12 02:37] LABS: Glucose,Whole Blood 166 mg/dL (75-99)
[2016-06-12 04:10] LABS: Glucose,Whole Blood 164 mg/dL (75-99)
[2016-06-12] MEDS: D5-0.45% NACL WITH KCL 20MEQ/L 1,000 ML IV SCH ×2 (04:54→16:58)
[2016-06-12] MEDS: INSULIN REGULAR 100 UNIT in SODIUM CHLORIDE 0.9% 100 ML IV SCH (04:55)
[2016-06-12 05:09] LABS: Basophils % (A) 0 %; CH 24.5; CHCM 30.4; Eosinophils % (A) 0 %; HCT 31.1 % (39.0-53.0); HDW 2.98; HGB 9.5 gm/dL (13.0-17.5); Hypochromasia Marked; Luc # (Auto) 0.33; Luc % (Auto) 3; Lymphocytes # (A) 1.3 k/uL (1.0-4.8); Lymphocytes % (A) 13 %; MCH 24.6 pg (25.0-35.0); MCHC 30.4 g/dL (31.0-37.0); MCV 80.9 fL (80.0-100.0); Mean Platelet Volume 6.8; Monocytes # (A) 0.6 k/uL (0-1.0); Monocytes % (A) 6 %; Neutrophils # (A) 7.8 k/uL (1.3-7.7); Neutrophils % (A) 77 %; RBC 3.84 m/uL (4.30-5.90); RDW 14.1 % (11.5-15.5); WBC 10.1 k/uL (3.8-10.6); WBC (Perox) 10.67
[2016-06-12 05:33] LABS: Anion Gap 10 mmol/L; Blood Urea Nitrogen 6 mg/dL (9-20); Calcium 8.2 mg/dL (8.4-10.2); Carbon Dioxide 18 mmol/L (22-30); Chloride 111 mmol/L (98-107); Glucose 168 mg/dL (74-99); Magnesium 1.7 mg/dL (1.6-2.3); Non-African American GFR(MDRD) >60 (>60 ml/min/1.73 sqM); Potassium 3.6 mmol/L (3.5-5.1); Sodium 139 mmol/L (137-145)
[2016-06-12] MEDS ORDERED: Magnesium Replacement Protocol 1 EACH MISC MISCELLANE PRN (05:46)
[2016-06-12] MEDS: METOCLOPRAMIDE 5 MG/ML 2 ML VIAL IVP SCH ×4 (05:54→23:45)
--- NOTE | 2016-06-12 06:05 | PN ---
SUBJECTIVE: A 30-year-old white male continues to have emesis, unable to eat. He is ready to vomit here despite Reglan 5 mg a day. He continues to have nausea and vomiting. We increased his Reglan this morning to 10 mg IV q.6 hours. GI and charity fundraiser consults are pending as well as Psychiatric. CARDIOVASCULAR: S1 and S2. LUNGS: Clear. GI: Diffuse tenderness, decreased bowel sounds. HEMATOLOGIC: Negative Homans. ASSESSMENT: 1. Severe gastroparesis. 2. Diabetic ketoacidosis. Increase his Reglan now at10 mg q.6 hours. Continue on DKA protocol. Labs and consults are reviewed. ICU TIME: 30 minutes.
[2016-06-12] MEDS: MAGNESIUM SULFATE-D5W PMX 1 GM in DEXTROSE/WATER 1 100ML.BAG IVPB SCH ×2 (06:12→08:42)
[2016-06-12 06:16] LABS: Glucose,Whole Blood 168 mg/dL (75-99)
[2016-06-12 08:08] LABS: Glucose,Whole Blood 206 mg/dL (75-99)
[2016-06-12] MEDS: LISINOPRIL 20 MG TAB PO SCH (08:43)
[2016-06-12] MEDS: PANTOPRAZOLE 40 MG/10 ML VIAL IVP SCH ×2 (08:43→22:38)
[2016-06-12] MEDS: SERTRALINE 100 MG TAB PO SCH (08:43)
[2016-06-12] MEDS: carBAMazepine 200 MG TAB PO SCH ×2 (08:43→22:38)
[2016-06-12] MEDS: VENLAFAXINE HCL ER 75 MG CAP PO SCH (08:43)
[2016-06-12] MEDS: METOPROLOL TARTRATE 50 MG TAB PO SCH ×2 (08:43→22:38)
[2016-06-12] MEDS: TIMOLOL 0.5% OPHTH DROPS 5 ML BTL BOTH EYES SCH (08:44)
[2016-06-12] MEDS: ERYTHROMYCIN IV 250 MG in SODIUM CHLORIDE 0.9% 250 ML IVPB SCH ×4 (08:44→23:40)
[2016-06-12 10:26] LABS: Glucose,Whole Blood 175 mg/dL (75-99)
[2016-06-12 12:23] LABS: Glucose,Whole Blood 215 mg/dL (75-99)
[2016-06-12] MEDS: INSULIN LISPRO (humaLOG) 300 UNIT/3 ML VIAL SQ SCH ×3 (14:46→22:39)
--- NOTE | 2016-06-12 14:55 | P.PN ---
Mirza Bo 30-year-old male patient being evaluated and examined today in the intensive care unit. Patient was admitted with DKA. This patient was transferred from the psychiatric unit in the hospital to the ICU due to a huge episode of emesis which was coffee ground in nature. The patient was having abdominal pain and poor eating for the last 2-3 days before this episode. He was on the psych unit for psychotic depression. Agent does have a long- standing history of diabetes mellitus and multiple episodes of DKA. Patient has been hemodynamically stable however he continues to have emesis and is unable to eat. The patient is requesting transfer to [place] due to that being where his current GI doctor practices. Upon examination the patient is resting up in bed on room air, no shortness of breath or coughing noted, he has been having good urine output. Continues on the DKA protocol. Objective - Vital Signs Vital signs: Vital Signs Temp 98.1 F 06/12/16 08:00 Pulse 107 H 06/12/16 11:00 Resp 21 06/12/16 11:00 BP 131/89 06/12/16 11:00 Pulse Ox 97 06/12/16 10:00 Intake & Output 06/11/16 06/12/16 06/12/16 18:59 06:59 18:59 Intake Total 7420.048 9197 950 Output Total 1350 0 Balance 554.156 1918 950 Weight 82.8 kg Intake: Intake, IV Titration 4462.956 7731 950 Amount D5-0.45% NaCl with KCl 900 1800 600 20Meq/l 1,000 ml @ 150 mls/hr IV .[id number] [facility] Rx# :[id number] Erythromycin IV 250 mg In 500 250 250 Sodium Chloride 0.9% 250 ml @ 333.333 mls/hr IVPB Q8HR [facility] Rx#:[id number] Insulin Regular 100 unit 31.927 In Sodium Chloride 0.9% 100 ml @ 0.1 UNITS/KG/HR 7.85 mls/hr IV .[id number] [facility] Rx#:[id number] Magnesium Sulfate-D5w Pmx 100 1 gm In Dextrose/Water 1 100ml.bag @ 100 mls/hr IVPB Q1H [facility] Rx#: [id number] Potassium Chloride 10 meq 200 Lidocaine 2% Inj 10 mg In Sodium Chloride 0.9% 100 ml @ 100 mls/hr IV Q1HR [facility] Rx#:[id number] Potassium Phosphate 10 125 mmol In Sodium Chloride 0 .9% 250 ml @ 125 mls/hr IV ONCE ONE Rx#:[id number] Sodium Phosphate 10 mmol 375 In Sodium Chloride 0.9% 250 ml @ 125 mls/hr IVPB Q2H [facility] Rx#:[id number] Oral 100 100 Output: Urine 1150 0 Emesis 200 Other: Voiding Method Urinal Urinal Urinal # Voids 1 1 1 - Exam GENERAL EXAM: Alert, active, comfortable in no apparent distress. HEAD: Normocephalic. EYES: Normal reaction of pupils, equal size. NOSE: Clear with pink turbinates. THROAT: No erythema or exudates. NECK: No masses, no JVD. CHEST: No chest wall deformity. LUNGS: Equal air entry with no crackles, wheeze, rhonchi or dullness. CVS: S1 and S2 normal with no audible mumurs, regular rhythm. ABDOMEN: No hepatosplenomegaly, normal bowel sounds, no guarding or rigidity. EXTREMITIES: No edema noted, pedal pulses palpable. SKIN: No rashes CENTRAL NERVOUS SYSTEM: No focal deficits, tone is normal in all 4 extremities. - Labs CBC & Chem 7: 06/12/16 04:09 06/12/16 04:09 Labs: Abnormal Lab Results - Last 24 Hours (Table) 06/11/16 06/11/16 06/11/16 Range/Units 11:44 13:09 13:59 RBC (4.30-5.90) m/uL Hgb (13.0-17.5) gm/dL Hct (39.0-53.0) % MCH (25.0-35.0) pg MCHC (31.0-37.0) g/dL Neutrophils # (1.3-7.7) k/uL Chloride (98-107) mmol/L Carbon Dioxide (22-30) mmol/L BUN (9-20) mg/dL Glucose (74-99) mg/dL POC Glucose (mg/dL) 155 H 163 H 192 H (75-99) mg/dL Calcium (8.4-10.2) mg/dL Phosphorus (2.5-4.5) mg/dL 06/11/16 06/11/16 06/11/16 Range/Units 14:03 15:20 16:02 RBC (4.30-5.90) m/uL Hgb (13.0-17.5) gm/dL Hct (39.0-53.0) % MCH (25.0-35.0) pg MCHC (31.0-37.0) g/dL Neutrophils # (1.3-7.7) k/uL Chloride 110 H (98-107) mmol/L Carbon Dioxide 17 L (22-30) mmol/L BUN (9-20) mg/dL Glucose 181 H (74-99) mg/dL POC Glucose (mg/dL) 166 H 157 H (75-99) mg/dL Calcium (8.4-10.2) mg/dL Phosphorus (2.5-4.5) mg/dL 06/11/16 06/11/16 06/11/16 Range/Units 17:38 18:29 18:52 RBC (4.30-5.90) m/uL Hgb (13.0-17.5) gm/dL Hct (39.0-53.0) % MCH (25.0-35.0) pg MCHC (31.0-37.0) g/dL Neutrophils # (1.3-7.7) k/uL Chloride 112 H (98-107) mmol/L Carbon Dioxide 17 L (22-30) mmol/L BUN 8 L (9-20) mg/dL Glucose 158 H (74-99) mg/dL POC Glucose (mg/dL) 164 H 132 H (75-99) mg/dL Calcium (8.4-10.2) mg/dL Phosphorus 2.0 L (2.5-4.5) mg/dL 06/11/16 06/11/16 06/11/16 Range/Units 20:11 22:12 22:46 RBC (4.30-5.90) m/uL Hgb (13.0-17.5) gm/dL Hct (39.0-53.0) % MCH (25.0-35.0) pg MCHC (31.0-37.0) g/dL Neutrophils # (1.3-7.7) k/uL Chloride 112 H (98-107) mmol/L Carbon Dioxide 18 L (22-30) mmol/L BUN 7 L (9-20) mg/dL Glucose 190 H (74-99) mg/dL POC Glucose (mg/dL) 172 H 201 H (75-99) mg/dL Calcium (8.4-10.2) mg/dL Phosphorus 1.9 L (2.5-4.5) mg/dL 06/11/16 06/12/16 06/12/16 Range/Units 23:25 02:36 04:09 RBC 3.84 L (4.30-5.90) m/uL Hgb 9.5 L (13.0-17.5) gm/dL Hct 31.1 L (39.0-53.0) % MCH 24.6 L (25.0-35.0) pg MCHC 30.4 L (31.0-37.0) g/dL Neutrophils # 7.8 H (1.3-7.7) k/uL Chloride (98-107) mmol/L Carbon Dioxide (22-30) mmol/L BUN (9-20) mg/dL Glucose (74-99) mg/dL POC Glucose (mg/dL) 184 H 166 H (75-99) mg/dL Calcium (8.4-10.2) mg/dL Phosphorus (2.5-4.5) mg/dL 06/12/16 06/12/16 06/12/16 Range/Units 04:09 04:09 06:14 RBC (4.30-5.90) m/uL Hgb (13.0-17.5) gm/dL Hct (39.0-53.0) % MCH (25.0-35.0) pg MCHC (31.0-37.0) g/dL Neutrophils # (1.3-7.7) k/uL Chloride 111 H (98-107) mmol/L Carbon Dioxide 18 L (22-30) mmol/L BUN 6 L (9-20) mg/dL Glucose 168 H (74-99) mg/dL POC Glucose (mg/dL) 164 H 168 H (75-99) mg/dL Calcium 8.2 L (8.4-10.2) mg/dL Phosphorus (2.5-4.5) mg/dL 06/12/16 06/12/16 Range/Units 08:07 10:25 RBC (4.30-5.90) m/uL Hgb (13.0-17.5) gm/dL Hct (39.0-53.0) % MCH (25.0-35.0) pg MCHC (31.0-37.0) g/dL Neutrophils # (1.3-7.7) k/uL Chloride (98-107) mmol/L Carbon Dioxide (22-30) mmol/L BUN (9-20) mg/dL Glucose (74-99) mg/dL POC Glucose (mg/dL) 206 H 175 H (75-99) mg/dL Calcium (8.4-10.2) mg/dL Phosphorus (2.5-4.5) mg/dL Assessment and Plan Plan: Assessment Diabetic ketoacidosis Insulin-dependent diabetes mellitus Gastroparesis, Acute coffee-ground emesis Component of starvation ketosis Anxiety and depression Plan Patient can be downgraded from the ICU to selective care. Medications have been reviewed and will be continued as ordered. We will continue with the DKA protocol. We will continue to monitor his hemoglobin and will try to get in contact with the patient's GI specialist out of [place], possible transfer to the [facility] facility. Continue with pulmonary Hygiene, supportive care. We will continue to monitor labs/results and adjust treatment as necessary. I performed an examination of the patient and discussed their management with the nurse practitioner. I have reviewed the nurse practitioner's note and agree with the documented findings and plan of care.
--- NOTE | 2016-06-12 15:53 | P.PN ---
Subjective A 30-year-old male was admitted to the intensive care unit as a transfer from the mental health unit. Patient had been in the psychiatric unit being treated for unspecified psychiatric disorder by history per chart history patient thought that people were spying on him and patient was displaying paranoia agitation type behavior. Parents became concerned and brought patient into the emergency room patient was admitted stabilized and treated at that time for DKA. With the psychiatric eval requested At that time patient was transferred to the mental health unit for further management for treatment of psychiatric behavior. With paranoia agitation While admitted to the psychiatric unit patient had an episode of coffee-ground emesis. was discharged from the mental health unit and admitted to the intensive care unit Patient has had multiple hospitalizations over the last few months with intractable nausea vomiting and diabetic gastroparesis. Patient was at [facility] 2 weeks ago from there he was transferred to [facility] where he was discharged 10 days ago for the same reason. The family has been requesting that the patient be transferred to [facility] where they are familiar with the patient bilingual case manager is pursuing the discharge Objective - Vital Signs Vital signs: Vital Signs Temp 98.6 F 06/12/16 12:00 Pulse 95 06/12/16 15:00 Resp 15 06/12/16 15:00 BP 142/82 06/12/16 15:00 Pulse Ox 99 06/12/16 15:00 Intake & Output 06/11/16 06/12/16 06/12/16 18:59 06:59 18:59 Intake Total 3674.731 0758 1300 Output Total 1350 Balance 933.546 6293 1300 Weight 82.8 kg Intake: Intake, IV Titration 9937.986 2372 1300 Amount D5-0.45% NaCl with KCl 900 1800 950 20Meq/l 1,000 ml @ 50 mls /hr IV .Q20H [facility] Rx#: [id number] Erythromycin IV 250 mg In 500 250 250 Sodium Chloride 0.9% 250 ml @ 333.333 mls/hr IVPB Q8HR [facility] Rx#:[id number] Insulin Regular 100 unit 31.927 In Sodium Chloride 0.9% 100 ml @ 0.1 UNITS/KG/HR 7.85 mls/hr IV .[id number] [facility] Rx#:[id number] Magnesium Sulfate-D5w Pmx 100 1 gm In Dextrose/Water 1 100ml.bag @ 100 mls/hr IVPB Q1H [facility] Rx#: [id number] Potassium Chloride 10 meq 200 Lidocaine 2% Inj 10 mg In Sodium Chloride 0.9% 100 ml @ 100 mls/hr IV Q1HR [facility] Rx#:[id number] Potassium Phosphate 10 125 mmol In Sodium Chloride 0 .9% 250 ml @ 125 mls/hr IV ONCE ONE Rx#:[id number] Sodium Phosphate 10 mmol 375 In Sodium Chloride 0.9% 250 ml @ 125 mls/hr IVPB Q2H [facility] Rx#:[id number] Oral 100 100 Output: Urine 1150 Emesis 200 Other: Voiding Method Urinal Urinal Urinal # Voids 1 1 1 # Bowel Movements 1 - Exam Physical exam 30-year-old male appearing in no acute distress aware of the plan of care pleasant and cooperative lungs essentially clear on room air no shortness of breath Heart S1-S2 audible regular abdomen soft nontender no further coffee-ground emesis Extremities no edema noted - Labs CBC & Chem 7: 06/12/16 04:09 06/12/16 04:09 Labs: Abnormal Lab Results - Last 24 Hours (Table) 06/11/16 06/11/16 06/11/16 Range/Units 16:02 17:38 18:29 RBC (4.30-5.90) m/uL Hgb (13.0-17.5) gm/dL Hct (39.0-53.0) % MCH (25.0-35.0) pg MCHC (31.0-37.0) g/dL Neutrophils # (1.3-7.7) k/uL Chloride 112 H (98-107) mmol/L Carbon Dioxide 17 L (22-30) mmol/L BUN 8 L (9-20) mg/dL Glucose 158 H (74-99) mg/dL POC Glucose (mg/dL) 157 H 164 H (75-99) mg/dL Calcium (8.4-10.2) mg/dL Phosphorus 2.0 L (2.5-4.5) mg/dL 06/11/16 06/11/16 06/11/16 Range/Units 18:52 20:11 22:12 RBC (4.30-5.90) m/uL Hgb (13.0-17.5) gm/dL Hct (39.0-53.0) % MCH (25.0-35.0) pg MCHC (31.0-37.0) g/dL Neutrophils # (1.3-7.7) k/uL Chloride (98-107) mmol/L Carbon Dioxide (22-30) mmol/L BUN (9-20) mg/dL Glucose (74-99) mg/dL POC Glucose (mg/dL) 132 H 172 H 201 H (75-99) mg/dL Calcium (8.4-10.2) mg/dL Phosphorus (2.5-4.5) mg/dL 06/11/16 06/11/16 06/12/16 Range/Units 22:46 23:25 02:36 RBC (4.30-5.90) m/uL Hgb (13.0-17.5) gm/dL Hct (39.0-53.0) % MCH (25.0-35.0) pg MCHC (31.0-37.0) g/dL Neutrophils # (1.3-7.7) k/uL Chloride 112 H (98-107) mmol/L Carbon Dioxide 18 L (22-30) mmol/L BUN 7 L (9-20) mg/dL Glucose 190 H (74-99) mg/dL POC Glucose (mg/dL) 184 H 166 H (75-99) mg/dL Calcium (8.4-10.2) mg/dL Phosphorus 1.9 L (2.5-4.5) mg/dL 06/12/16 06/12/16 06/12/16 Range/Units 04:09 04:09 04:09 RBC 3.84 L (4.30-5.90) m/uL Hgb 9.5 L (13.0-17.5) gm/dL Hct 31.1 L (39.0-53.0) % MCH 24.6 L (25.0-35.0) pg MCHC 30.4 L (31.0-37.0) g/dL Neutrophils # 7.8 H (1.3-7.7) k/uL Chloride 111 H (98-107) mmol/L Carbon Dioxide 18 L (22-30) mmol/L BUN 6 L (9-20) mg/dL Glucose 168 H (74-99) mg/dL POC Glucose (mg/dL) 164 H (75-99) mg/dL Calcium 8.2 L (8.4-10.2) mg/dL Phosphorus (2.5-4.5) mg/dL 06/12/16 06/12/16 06/12/16 Range/Units 06:14 08:07 10:25 RBC (4.30-5.90) m/uL Hgb (13.0-17.5) gm/dL Hct (39.0-53.0) % MCH (25.0-35.0) pg MCHC (31.0-37.0) g/dL Neutrophils # (1.3-7.7) k/uL Chloride (98-107) mmol/L Carbon Dioxide (22-30) mmol/L BUN (9-20) mg/dL Glucose (74-99) mg/dL POC Glucose (mg/dL) 168 H 206 H 175 H (75-99) mg/dL Calcium (8.4-10.2) mg/dL Phosphorus (2.5-4.5) mg/dL 06/12/16 Range/Units 12:21 RBC (4.30-5.90) m/uL Hgb (13.0-17.5) gm/dL Hct (39.0-53.0) % MCH (25.0-35.0) pg MCHC (31.0-37.0) g/dL Neutrophils # (1.3-7.7) k/uL Chloride (98-107) mmol/L Carbon Dioxide (22-30) mmol/L BUN (9-20) mg/dL Glucose (74-99) mg/dL POC Glucose (mg/dL) 215 H (75-99) mg/dL Calcium (8.4-10.2) mg/dL Phosphorus (2.5-4.5) mg/dL Assessment and Plan Plan: Impression Recent admission for acute diabetic ketoacidosis resolving Severe intense nausea vomiting with a history of diabetic as a pheresis Legally blind Anxiety depressive disorder An episode of coffee-ground emesis this admission suspect gastroparesis Type 1 diabetes Recurrent admissions for diabetic ketoacidosis Component of starvation ketosis Plan Continue to monitor Accu-Chek blood sugars address as indicated Pursue the discharge and transfer to [facility] when bed becomes available Transfer out of the ICU Continue recommendations from the mental health service DVT and GI prophylaxis The above dictated assessment and findings were discussed with dr noble Impression and the plan of care have been dictated as directed. Rosemarie Shirley nurse practitioner acting as a scribe for dr noble
[2016-06-12 17:38] LABS: Glucose,Whole Blood 382 mg/dL (75-99)
[2016-06-12 20:50] LABS: Glucose,Whole Blood 252 mg/dL (75-99)
[2016-06-12] MEDS: ATORVASTATIN 80 MG TAB PO SCH (22:38)
[2016-06-12] MEDS: LATANOPROST 0.005% OPHTH DROPS 2.5 ML BTL BOTH EYES SCH (22:39)
[2016-06-13 03:16] LABS: Glucose,Whole Blood 220 mg/dL (75-99)
[2016-06-13] MEDS: METOCLOPRAMIDE 5 MG/ML 2 ML VIAL IVP SCH ×2 (06:41→11:39)
[2016-06-13 07:26] LABS: Glucose,Whole Blood 467 mg/dL (75-99)
[2016-06-13] MEDS ORDERED: INSULIN GLARGINE 100 UNIT/ML 10 ML VIAL SQ ONE (08:42)
[2016-06-13] MEDS: INSULIN LISPRO (humaLOG) 300 UNIT/3 ML VIAL SQ SCH ×6 (08:53→21:54)
[2016-06-13] MEDS: METOPROLOL TARTRATE 50 MG TAB PO SCH ×2 (08:54→20:26)
[2016-06-13] MEDS: LISINOPRIL 20 MG TAB PO SCH (08:54)
[2016-06-13] MEDS: SERTRALINE 100 MG TAB PO SCH (08:54)
[2016-06-13] MEDS: carBAMazepine 200 MG TAB PO SCH ×2 (08:54→20:26)
[2016-06-13] MEDS: PANTOPRAZOLE 40 MG/10 ML VIAL IVP SCH (08:54)
[2016-06-13] MEDS: VENLAFAXINE HCL ER 75 MG CAP PO SCH (08:55)
[2016-06-13] MEDS: TIMOLOL 0.5% OPHTH DROPS 5 ML BTL BOTH EYES SCH (08:55)
[2016-06-13] MEDS: ERYTHROMYCIN IV 250 MG in SODIUM CHLORIDE 0.9% 250 ML IVPB SCH (08:58)
[2016-06-13 10:20] LABS: Basophils % (A) 0 %; CH 24.7; CHCM 30.1; Eosinophils % (A) 0 %; HCT 34.1 % (39.0-53.0); HDW 2.93; HGB 10.6 gm/dL (13.0-17.5); Hypochromasia Marked; Luc # (Auto) 0.22; Luc % (Auto) 3; Lymphocytes # (A) 1.4 k/uL (1.0-4.8); Lymphocytes % (A) 16 %; MCH 25.5 pg (25.0-35.0); MCHC 31.1 g/dL (31.0-37.0); MCV 82.1 fL (80.0-100.0); Monocytes # (A) 0.4 k/uL (0-1.0); Monocytes % (A) 5 %; Neutrophils # (A) 6.8 k/uL (1.3-7.7); Neutrophils % (A) 77 %; RBC 4.16 m/uL (4.30-5.90); RDW 14.5 % (11.5-15.5); WBC 8.9 k/uL (3.8-10.6); WBC (Perox) 8.94
[2016-06-13 10:27] LABS: Anion Gap 18 mmol/L; Blood Urea Nitrogen 8 mg/dL (9-20); Calcium 9.1 mg/dL (8.4-10.2); Carbon Dioxide 12 mmol/L (22-30); Chloride 107 mmol/L (98-107); Non-African American GFR(MDRD) >60 (>60 ml/min/1.73 sqM); Phosphorous 3.2 mg/dL (2.5-4.5); Sodium 137 mmol/L (137-145)
[2016-06-13 10:35] LABS: Potassium 5.2 mmol/L (3.5-5.1)
[2016-06-13 10:37] LABS: Glucose 582 mg/dL (74-99)
[2016-06-13 10:58] LABS: Glucose,Whole Blood 386 mg/dL (75-99)
--- NOTE | 2016-06-13 11:05 | P.PN ---
Mirza Bo 30-year-old male patient being evaluated and examined today on the forth floor. Patient was admitted with DKA. This patient was transferred from the psychiatric unit in the hospital to the ICU due to a huge episode of emesis which was coffee ground in nature. The patient was having abdominal pain and poor eating for the last 2-3 days before this episode. He was on the psych unit for psychotic depression. Agent does have a long-standing history of diabetes mellitus and multiple episodes of DKA. Patient has been hemodynamically stable. The patient is requesting transfer to [place] due to that being where his current GI doctor practices. Case management is working on possible transfer. Upon examination the patient is resting up in bed on room air, no shortness of breath or coughing noted, he has been having good urine output. Patient states he is no longer nauseous and has had no vomiting. Patient continue to have a decreased appetite and he is consuming very little liquids. Patient denies any suicidal thoughts or ideation at this time. Patient's father is at bedside. Objective - Vital Signs Vital signs: Vital Signs Temp 96.8 F L 06/13/16 07:00 Pulse 97 06/13/16 07:00 Resp 16 06/13/16 07:00 BP 130/71 06/13/16 07:00 Pulse Ox 97 06/13/16 07:00 Intake & Output 06/12/16 06/13/16 06/13/16 18:59 06:59 18:59 Intake Total 1400 Balance 1400 Intake: Intake, IV Titration 1400 Amount D5-0.45% NaCl with KCl 1050 20Meq/l 1,000 ml @ 50 mls /hr IV .Q20H FELIX Rx#: [id number] Erythromycin IV 250 mg In 250 Sodium Chloride 0.9% 250 ml @ 333.333 mls/hr IVPB Q8HR FELIX Rx#:[id number] Magnesium Sulfate-D5w Pmx 100 1 gm In Dextrose/Water 1 100ml.bag @ 100 mls/hr IVPB Q1H FELIX Rx#: [id number] Other: Voiding Method Toilet # Voids 1 1 # Bowel Movements 1 0 - Exam GENERAL EXAM: Alert, active, comfortable in no apparent distress. HEAD: Normocephalic. EYES: Normal reaction of pupils, equal size. NOSE: Clear with pink turbinates. THROAT: No erythema or exudates. NECK: No masses, no JVD. CHEST: No chest wall deformity. LUNGS: Equal air entry with no crackles, wheeze, rhonchi or dullness. CVS: S1 and S2 normal with no audible mumurs, regular rhythm. ABDOMEN: No hepatosplenomegaly, normal bowel sounds, no guarding or rigidity. EXTREMITIES: No edema noted, pedal pulses palpable. SKIN: No rashes CENTRAL NERVOUS SYSTEM: No focal deficits, tone is normal in all 4 extremities. - Labs CBC & Chem 7: 06/13/16 09:13 06/13/16 09:13 Labs: Abnormal Lab Results - Last 24 Hours (Table) 06/12/16 06/12/16 06/12/16 Range/Units 12:21 17:36 20:47 RBC (4.30-5.90) m/uL Hgb (13.0-17.5) gm/dL Hct (39.0-53.0) % Potassium (3.5-5.1) mmol/L Carbon Dioxide (22-30) mmol/L BUN (9-20) mg/dL Glucose (74-99) mg/dL POC Glucose (mg/dL) 215 H 382 H 252 H (75-99) mg/dL 06/13/16 06/13/16 06/13/16 Range/Units 03:14 07:23 09:13 RBC 4.16 L (4.30-5.90) m/uL Hgb 10.6 L (13.0-17.5) gm/dL Hct 34.1 L (39.0-53.0) % Potassium (3.5-5.1) mmol/L Carbon Dioxide (22-30) mmol/L BUN (9-20) mg/dL Glucose (74-99) mg/dL POC Glucose (mg/dL) 220 H 467 H (75-99) mg/dL 06/13/16 06/13/16 Range/Units 09:13 10:44 RBC (4.30-5.90) m/uL Hgb (13.0-17.5) gm/dL Hct (39.0-53.0) % Potassium 5.2 H (3.5-5.1) mmol/L Carbon Dioxide 12 L (22-30) mmol/L BUN 8 L (9-20) mg/dL Glucose 582 H* (74-99) mg/dL POC Glucose (mg/dL) 386 H (75-99) mg/dL Assessment and Plan Plan: Assessment Diabetic ketoacidosis Insulin-dependent diabetes mellitus Gastroparesis, Acute coffee-ground emesis Component of starvation ketosis Anxiety and depression Plan Medications have been reviewed and will be continued as ordered. He with Accu -Cheks and insulin We will continue to monitor his hemoglobin and will try to get in contact with the patient's GI specialist out of [place], possible transfer to the [facility]. Transfer is being worked on by case management and pending authorization. If transfer is unable to happen the patient should be discharged back to the psychiatric unit once medically cleared to do so. Continue with pulmonary Hygiene, supportive care. We will continue to monitor labs/results and adjust treatment as necessary. I performed an examination of the patient and discussed their management with the nurse practitioner. I have reviewed the nurse practitioner's note and agree with the documented findings and plan of care.
[2016-06-13 11:48] LABS: Glucose,Whole Blood 339 mg/dL (75-99)
--- NOTE | 2016-06-13 12:23 | P.PN ---
Subjective Principal diagnosis: 30-year-old male admitted with DKA severe nausea vomiting. Feels well this morning. No emesis. Minimal nausea. Tolerating clear liquids. Objective - Vital Signs Vital signs: Vital Signs Temp 96.8 F L 06/13/16 07:00 Pulse 97 06/13/16 07:00 Resp 16 06/13/16 07:00 BP 130/71 06/13/16 07:00 Pulse Ox 97 06/13/16 07:00 Intake & Output 06/12/16 06/13/16 06/13/16 18:59 06:59 18:59 Intake Total 1400 Balance 1400 Intake: Intake, IV Titration 1400 Amount D5-0.45% NaCl with KCl 1050 20Meq/l 1,000 ml @ 50 mls /hr IV .Q20H FELIX Rx#: [id number] Erythromycin IV 250 mg In 250 Sodium Chloride 0.9% 250 ml @ 333.333 mls/hr IVPB Q8HR FELIX Rx#:[id number] Magnesium Sulfate-D5w Pmx 100 1 gm In Dextrose/Water 1 100ml.bag @ 100 mls/hr IVPB Q1H FELIX Rx#: [id number] Other: Voiding Method Toilet # Voids 1 1 # Bowel Movements 1 0 - Exam General appearance: The patient is alert, oriented, in no acute distress. HET: Head is normocephalic and atraumatic. Pupils are equal and reactive. Oropharynx is clear without lesions. Neck: Supple without lymphadenopathy. Trachea midline. Heart: S1 S2. Regular rate and rhythm. Lungs: No crackles or wheezes are heard. Abdomen: Soft, nontender, nondistended with bowel sounds. No peritoneal signs. No palpable organomegaly or masses. Extremities: Normal skin color and turgor. No cyanosis, rash, ulceration, clubbing, or edema. Radial and pedal pulses are 2/4 bilaterally. Neurological: No focal deficits. Strength and sensation are grossly intact. - Labs CBC & Chem 7: 06/13/16 09:13 06/13/16 09:13 Labs: Abnormal Lab Results - Last 24 Hours (Table) 06/12/16 06/12/16 06/12/16 Range/Units 10:25 12:21 17:36 POC Glucose (mg/dL) 175 H 215 H 382 H (75-99) mg/dL 06/12/16 06/13/16 06/13/16 Range/Units 20:47 03:14 07:23 POC Glucose (mg/dL) 252 H 220 H 467 H (75-99) mg/dL Assessment and Plan (1) Nausea & vomiting Status: Acute (2) Diabetic ketoacidosis Status: Acute (3) H/O diabetic gastroparesis Status: Chronic Plan: 1. Advance diet as tolerated. GI symptoms are improving. 2. Continue GI prophylaxis antinausea medications. Discontinue erythromycin. Possible transfer to tertiary [facility] for continuity of care possible transfer to inpatient psych unit. 3. No further workup at this time. Assessment and plan of care discussed with Dr. Odom.
[2016-06-13] MEDS: D5-0.45% NACL WITH KCL 20MEQ/L 1,000 ML IV SCH (13:16)
--- NOTE | 2016-06-13 13:59 | P.CN ---
Psychiatric Consult - . Consult date: 06/13/16 Consult:: Medicine service reconsult to psychiatry because he is medically stable. I reviewed the medical record and interviewed Mr. Slater. He is a 30-year-old male who has a history of mood disorder and insulin-dependent diabetes mellitus. He was transferred from medicine service to psychiatry on involuntarily with a history of increasing paranoia. He was transferred from psychiatry back to medicine service on 06/09/2016 following an episode of coffee-ground emesis. He has been treated for a GI bleed. He was pleasant on approach and appeared to attend to the interview. He showed no abnormality of psychomotor activity and no abnormal movements. Speech was spontaneous. His affect was blunted bright. He did not volunteer paranoid beliefs, thoughts or ideation. He denied auditory hallucinations and did not appear to be responding to internal stimuli. His legal status remains involuntary and he has a probate hearing is scheduled for June 20 at 1:30 PM. Transfer him back to the psychiatric unit under my service. I called his father and left a message informing him of the transfer back to psychiatry. 06/13/16 13:52
--- NOTE | 2016-06-13 15:49 | P.PN ---
Subjective A 30-year-old male was admitted to the intensive care unit as a transfer from the mental health unit. Patient had been in the psychiatric unit being treated for unspecified psychiatric disorder by history per chart history patient thought that people were spying on him and patient was displaying paranoia agitation type behavior. Parents became concerned and brought patient into the emergency room patient was admitted stabilized and treated at that time for DKA. With the psychiatric eval requested At that time patient was transferred to the mental health unit for further management for treatment of psychiatric behavior. With paranoia agitation While admitted to the psychiatric unit patient had an episode of coffee-ground emesis. was discharged from the mental health unit and admitted to the intensive care unit Patient has been restarted on his insulin Lantus 28 units in the morning and Humalog 6 units before meals and at bedtime. This been no further episodes of coffee-ground emesis patient has tolerated the diet. Gastroenterology service indicated from the perspective the patient could be transferred back to the mental health unit. Patient has been accepted on the mental health unit. community health educator did see patient this admission as well. Currently [facility] has no beds available at this time. The parents have been updated and they are in agreement that the patient could be stabilized and admitted back to the mental health unit. The patient will not be transferred to the [facility] at this time Patient has had multiple hospitalizations over the last few months with intractable nausea vomiting and diabetic gastroparesis. Patient was at [facility] 2 weeks ago from there he was transferred to [facility] where he was discharged 10 days ago for the same reason. The family had initially requested that the patient be transferred to [place] for continuity of care. There are no beds available at the [facility] system in the parents for indicating they're comfortable with the patient staying here in being admitted back to the mental health unit Objective - Vital Signs Vital signs: Vital Signs Temp 96.8 F L 06/13/16 15:00 Pulse 95 06/13/16 15:00 Resp 14 06/13/16 15:00 BP 132/81 06/13/16 15:00 Pulse Ox 96 06/13/16 15:00 Intake & Output 06/12/16 06/13/16 06/13/16 18:59 06:59 18:59 Intake Total 1400 Balance 1400 Intake: Intake, IV Titration 1400 Amount D5-0.45% NaCl with KCl 1050 20Meq/l 1,000 ml @ 50 mls /hr IV .Q20H FELIX Rx#: [id number] Erythromycin IV 250 mg In 250 Sodium Chloride 0.9% 250 ml @ 333.333 mls/hr IVPB Q8HR FELIX Rx#:[id number] Magnesium Sulfate-D5w Pmx 100 1 gm In Dextrose/Water 1 100ml.bag @ 100 mls/hr IVPB Q1H FELIX Rx#: [id number] Other: Voiding Method Toilet # Voids 1 1 2 # Bowel Movements 1 0 - Exam Physical exam 30-year-old male appearing in no acute distress aware of the plan of care pleasant and cooperative lungs essentially clear on room air no shortness of breath Heart S1-S2 audible regular abdomen soft nontender no further coffee-ground emesis currently is tolerating a diet needs encouragement to eat Extremities no edema noted - Labs CBC & Chem 7: 06/13/16 09:13 06/13/16 09:13 Labs: Abnormal Lab Results - Last 24 Hours (Table) 06/12/16 06/12/16 06/13/16 Range/Units 17:36 20:47 03:14 RBC (4.30-5.90) m/uL Hgb (13.0-17.5) gm/dL Hct (39.0-53.0) % Potassium (3.5-5.1) mmol/L Carbon Dioxide (22-30) mmol/L BUN (9-20) mg/dL Glucose (74-99) mg/dL POC Glucose (mg/dL) 382 H 252 H 220 H (75-99) mg/dL 06/13/16 06/13/16 06/13/16 Range/Units 07:23 09:13 09:13 RBC 4.16 L (4.30-5.90) m/uL Hgb 10.6 L (13.0-17.5) gm/dL Hct 34.1 L (39.0-53.0) % Potassium 5.2 H (3.5-5.1) mmol/L Carbon Dioxide 12 L (22-30) mmol/L BUN 8 L (9-20) mg/dL Glucose 582 H* (74-99) mg/dL POC Glucose (mg/dL) 467 H (75-99) mg/dL 06/13/16 06/13/16 Range/Units 10:44 11:43 RBC (4.30-5.90) m/uL Hgb (13.0-17.5) gm/dL Hct (39.0-53.0) % Potassium (3.5-5.1) mmol/L Carbon Dioxide (22-30) mmol/L BUN (9-20) mg/dL Glucose (74-99) mg/dL POC Glucose (mg/dL) 386 H 339 H (75-99) mg/dL Assessment and Plan Plan: Impression Recent admission for acute diabetic ketoacidosis resolving Severe intense nausea vomiting with a history of diabetic gastroparesis Legally blind Anxiety depressive disorder An episode of coffee-ground emesis this admission suspect gastroparesis related to diabetes Type 1 diabetes uncontrolled hemoglobin A1c 8.9 Recurrent admissions for diabetic ketoacidosis Component of starvation ketosis Plan Continue to monitor Accu-Chek blood sugars address as indicated Pursue the discharge and transfer to [place] when bed becomes available Transfer out of the ICU Continue recommendations from the mental health service DVT and GI prophylaxis The above dictated assessment and findings were discussed with dr noble Impression and the plan of care have been dictated as directed. Rosemarie Shirley nurse practitioner acting as a scribe for dr noble
[2016-06-13 16:39] LABS: Glucose,Whole Blood 251 mg/dL (75-99)
[2016-06-13] MEDS: PANTOPRAZOLE 40 MG TABLET PO SCH (17:56)
[2016-06-13] MEDS: METOCLOPRAMIDE 10 MG TAB PO SCH ×2 (17:56→20:25)
[2016-06-13] MEDS: LATANOPROST 0.005% OPHTH DROPS 2.5 ML BTL BOTH EYES SCH (20:25)
[2016-06-13] MEDS: ATORVASTATIN 80 MG TAB PO SCH (20:26)
[2016-06-13 20:42] LABS: Glucose,Whole Blood 217 mg/dL (75-99)
[2016-06-13] MEDS: LORazepam 0.5 MG TAB PO PRN (23:09)
[2016-06-14 01:52] LABS: Glucose,Whole Blood 242 mg/dL (75-99)
[2016-06-14] MEDS: INSULIN REGULAR 100 UNIT in SODIUM CHLORIDE 0.9% 100 ML IV SCH (03:14)
[2016-06-14 06:57] LABS: Glucose,Whole Blood 324 mg/dL (75-99)
[2016-06-14 07:34] VITALS: BP 133/75; PULSE 99; RESP 16; TEMP 97.5
[2016-06-14] MEDS: INSULIN LISPRO (humaLOG) 300 UNIT/3 ML VIAL SQ SCH ×3 (08:15→12:59)
[2016-06-14] MEDS: PANTOPRAZOLE 40 MG TABLET PO SCH (08:16)
[2016-06-14] MEDS: METOCLOPRAMIDE 10 MG TAB PO SCH ×2 (08:16→12:59)
[2016-06-14] MEDS: carBAMazepine 200 MG TAB PO SCH (08:16)
[2016-06-14] MEDS: METOPROLOL TARTRATE 50 MG TAB PO SCH (08:17)
[2016-06-14] MEDS: VENLAFAXINE HCL ER 75 MG CAP PO SCH (08:17)
[2016-06-14] MEDS: LISINOPRIL 20 MG TAB PO SCH (08:17)
[2016-06-14] MEDS: TIMOLOL 0.5% OPHTH DROPS 5 ML BTL BOTH EYES SCH (08:17)
[2016-06-14] MEDS: SERTRALINE 100 MG TAB PO SCH (08:17)
[2016-06-14] MEDS ORDERED: INSULIN GLARGINE 100 UNIT/ML 10 ML VIAL SQ SCH ×2 (09:00→21:00)
[2016-06-14] MEDS ORDERED: cloNIDine 0.1 MG/24HR PATCH 1 PATCH PATCH TRANSDERM SCH (09:00)
[2016-06-14] MEDS ORDERED: INSULIN LISPRO (humaLOG) 300 UNIT/3 ML VIAL SQ SCH (09:30)
[2016-06-14 09:42] LABS: Basophils % (A) 1 %; CH 24.8; CHCM 30.9; Eosinophils % (A) 1 %; HCT 33.3 % (39.0-53.0); HDW 2.92; HGB 10.3 gm/dL (13.0-17.5); Hypochromasia Moderate; Luc % (Auto) 4; Lymphocytes # (A) 1.6 k/uL (1.0-4.8); Lymphocytes % (A) 28 %; MCHC 31.1 g/dL (31.0-37.0); MCV 80.5 fL (80.0-100.0); Mean Platelet Volume 7.9; Monocytes # (A) 0.4 k/uL (0-1.0); Monocytes % (A) 7 %; Neutrophils # (A) 3.4 k/uL (1.3-7.7); Neutrophils % (A) 61 %; RBC 4.14 m/uL (4.30-5.90); RDW 14.6 % (11.5-15.5); WBC 5.6 k/uL (3.8-10.6); WBC (Perox) 6.03
[2016-06-14 10:07] LABS: Anion Gap 12 mmol/L; Blood Urea Nitrogen 6 mg/dL (9-20); Carbon Dioxide 21 mmol/L (22-30); Chloride 102 mmol/L (98-107); Glucose 417 mg/dL (74-99); Magnesium 1.8 mg/dL (1.6-2.3); Non-African American GFR(MDRD) >60 (>60 ml/min/1.73 sqM); Phosphorous 3.9 mg/dL (2.5-4.5); Potassium 4.6 mmol/L (3.5-5.1); Sodium 135 mmol/L (137-145)
--- NOTE | 2016-06-14 11:03 | P.PN ---
Mirza Bo 30-year-old male patient being evaluated and examined today on the forth floor. Patient was admitted with DKA. This patient was transferred from the psychiatric unit in the hospital to the ICU due to a huge episode of emesis which was coffee ground in nature. The patient was having abdominal pain and poor eating for the last 2-3 days before this episode. He was on the psych unit for psychotic depression. Agent does have a long-standing history of diabetes mellitus and multiple episodes of DKA. Patient has been hemodynamically stable. The patient is requesting transfer to [place] due to that being where his current GI doctor practices. Case management is working on possible transfer. Upon examination the patient is resting up in bed on room air, no shortness of breath or coughing noted, he has been having good urine output. Patient states he is no longer nauseous and has had no vomiting. Patient continue to have a decreased appetite however he states he is consuming more food and fluids than previous. Patient denies any suicidal thoughts or ideation at this time. Plan is for the patient to be transferred back to mental health services today. Objective - Vital Signs Vital signs: Vital Signs Temp 97.5 F L 06/14/16 07:00 Pulse 99 06/14/16 07:00 Resp 16 06/14/16 07:00 BP 133/75 06/14/16 07:00 Pulse Ox 98 06/14/16 07:00 Intake & Output 06/13/16 06/14/16 06/14/16 18:59 06:59 18:59 Intake Total 520 Balance 520 Intake: Oral 520 Other: # Voids 2 1 1 - Exam GENERAL EXAM: Alert, active, comfortable in no apparent distress. HEAD: Normocephalic. EYES: Normal reaction of pupils, equal size. NOSE: Clear with pink turbinates. THROAT: No erythema or exudates. NECK: No masses, no JVD. CHEST: No chest wall deformity. LUNGS: Equal air entry with no crackles, wheeze, rhonchi or dullness. CVS: S1 and S2 normal with no audible mumurs, regular rhythm. ABDOMEN: No hepatosplenomegaly, normal bowel sounds, no guarding or rigidity. EXTREMITIES: No edema noted, pedal pulses palpable. SKIN: No rashes CENTRAL NERVOUS SYSTEM: No focal deficits, tone is normal in all 4 extremities. - Labs CBC & Chem 7: 06/14/16 08:23 06/14/16 08:23 Labs: Abnormal Lab Results - Last 24 Hours (Table) 06/13/16 06/13/16 06/13/16 Range/Units 11:43 16:36 20:39 RBC (4.30-5.90) m/uL Hgb (13.0-17.5) gm/dL Hct (39.0-53.0) % Sodium (137-145) mmol/L Carbon Dioxide (22-30) mmol/L BUN (9-20) mg/dL Glucose (74-99) mg/dL POC Glucose (mg/dL) 339 H 251 H 217 H (75-99) mg/dL 06/14/16 06/14/16 06/14/16 Range/Units 01:48 06:56 08:23 RBC 4.14 L (4.30-5.90) m/uL Hgb 10.3 L (13.0-17.5) gm/dL Hct 33.3 L (39.0-53.0) % Sodium (137-145) mmol/L Carbon Dioxide (22-30) mmol/L BUN (9-20) mg/dL Glucose (74-99) mg/dL POC Glucose (mg/dL) 242 H 324 H (75-99) mg/dL 06/14/16 Range/Units 08:23 RBC (4.30-5.90) m/uL Hgb (13.0-17.5) gm/dL Hct (39.0-53.0) % Sodium 135 L (137-145) mmol/L Carbon Dioxide 21 L (22-30) mmol/L BUN 6 L (9-20) mg/dL Glucose 417 H (74-99) mg/dL POC Glucose (mg/dL) (75-99) mg/dL Assessment and Plan Plan: Assessment Diabetic ketoacidosis Insulin-dependent diabetes mellitus Gastroparesis, Acute coffee-ground emesis Component of starvation ketosis Anxiety and depression Plan Medications have been reviewed and will be continued as ordered. He with Accu- Cheks and insulin We will continue to monitor his hemoglobin. [facility] states that since the patient is currently medically stable that he should go back to mental health services unit and finished treatment there and follow-up with his [facility] doctor afterwards. Continue with pulmonary Hygiene, supportive care. Patient is medically stable to be transferred back to mental health unit today. We will continue to monitor labs/results and adjust treatment as necessary. I performed an examination of the patient and discussed their management with the nurse practitioner. I have reviewed the nurse practitioner's note and agree with the documented findings and plan of care.
[2016-06-14 11:38] LABS: Glucose,Whole Blood 248 mg/dL (75-99)
[2016-06-14 11:54] VITALS: BMI 27.7
--- NOTE | 2016-06-14 12:51 | P.PN ---
Progress Note - Text SUBJECTIVE: I reviewed the medical record and interviewed Daniel and his father. Mr. Slater stated that Daniel will not be transferred to . He believes that Tani needs additional mental health treatment and would like Tani to return to [facility]. Stalin only concern was how long he would be on the unit. I explained that my plan is to keep in mind unit just long enough replaced Tegretol with an antipsychotic medication. Stalin complained of feeling tired. We also talked about the probate hearing and the probate hearing process. I recommended that when Daniel and his father's speak with the court appointed commercial attorney that Tani would consider deferring the hearing. OBJECTIVE: Daniel presented as a casually groomed 30-year-old male who was pleasant on approach. He was more attentive to the interview due to prior encounters. He yawned frequently during the interview. He had a blunted facial expression. He showed psychomotor retardation but no abnormal movements. Speech was not spontaneous. His affect was blunted but stable and appropriate. He did not express phobias, ideas reference or paranoid ideation. His thinking was concrete but his associations were coherent. He denied hallucinations and did not appear to be responding to internal stimuli. ASSESSMENT: He is agreeing to transfer to the psychiatric unit once he is medically stable. PLAN: Transfer to [facility] when medically stable. The plan would be to taper and discontinue Tegretol and began a second generation antipsychotic.
[2016-06-14] MEDS: LORazepam 0.5 MG TAB PO PRN (12:59)
--- NOTE | 2016-06-14 13:47 | P.DS ---
Providers Date of admission: 06/09/16 23:40 Expected date of discharge: 06/14/16 Attending physician: Wisam Noble Consults: 06/10/16 08:05 Consult Physician Urgent Consulting Provider: Clint Mendoza Consult Reason/Comments: ICU management Do you want consulting provider notified?: Already Contacted 06/10/16 15:32 Consult Physician Routine Consulting Provider: Wisam Davey Reason/Comments: transfered from mental health unit, saw Dr Davey Do you want consulting provider notified?: Already Contacted Primary care physician: Stated None Hospital Course: A 30-year-old male was admitted to the intensive care unit as a transfer from the mental health unit. Patient had been in the psychiatric unit being treated for unspecified psychiatric disorder by history per chart history patient thought that people were spying on him and patient was displaying paranoia agitation type behavior. Parents became concerned and brought patient into the emergency room patient was admitted stabilized and treated at that time for DKA. With the psychiatric eval requested At that time patient was transferred to the mental health unit for further management for treatment of psychiatric behavior. With paranoia agitation While admitted to the psychiatric unit patient had an episode of coffee-ground emesis. was discharged from the mental health unit and admitted to the intensive care unit Patient has been restarted on his insulin Lantus 28 units in the morning and Humalog 6 units before meals and at bedtime. This been no further episodes of coffee-ground emesis patient has tolerated the diet. Gastroenterology service indicated from the perspective the patient could be transferred back to the mental health unit. Patient has been accepted on the mental health unit. certified lactation educator did see patient this admission as well. Currently [facility] has no beds available at this time. The parents have been updated and they are in agreement that the patient could be stabilized and admitted back to the mental health unit. The patient will not be transferred to the [facility] at this time Patient has had multiple hospitalizations over the last few months with intractable nausea vomiting and diabetic gastroparesis. Patient was at [facility] 2 weeks ago from there he was transferred to [facility] where he was discharged 10 days ago for the same reason. The family had initially requested that the patient be transferred to [place] for continuity of care. There are no beds available at the [facility] in the parents for indicating they're comfortable with the patient staying here in being admitted back to the mental health unit Impression Recent admission for acute diabetic ketoacidosis resolving Severe intense nausea vomiting with a history of diabetic gastroparesis Legally blind Anxiety depressive disorder An episode of coffee-ground emesis this admission suspect gastroparesis related to diabetes Type 1 diabetes uncontrolled hemoglobin A1c 8.9 Recurrent admissions for diabetic ketoacidosis Component of starvation ketosis The above dictated assessment and findings were discussed with dr aide Powell and the plan of care have been dictated as directed. Rosemarie Shirley nurse practitioner acting as a scribe for dr noble Plan - Discharge Summary New Discharge Prescriptions: Insulin Glargine [Lantus] 30 unit SQ DAILY #1 vial Metoclopramide [Reglan] 10 mg PO ACHS #120 tab Venlafaxine HCl ER [Effexor XR] 75 mg PO DAILY #30 cap.er.24h Discharge Medication List Atorvastatin [Lipitor] 80 mg PO HS 06/04/16 [History] Gabapentin [Neurontin] 800 mg PO TID PRN 06/04/16 [History] LORazepam [Ativan] 0.25 - 0.5 mg PO BID PRN 06/04/16 [History] Latanoprost [Xalatan 0.005%] 1 drop BOTH EYES HS 06/04/16 [History] Lisinopril [Zestril] 20 mg PO DAILY 06/04/16 [History] Metoprolol Tartrate [Lopressor] 100 - 150 mg PO BID 06/04/16 [History] Pantoprazole Sodium [Protonix] 40 mg PO AC-BID 06/04/16 [History] Ranitidine HCl [Zantac] 150 mg PO AC-BID 06/04/16 [History] Sertraline [Zoloft] 100 mg PO DAILY 06/04/16 [History] Timolol 0.5% Ophth Soln [Timoptic 0.5% Ophth Soln] 1 drop BOTH EYES DAILY [History] Venlafaxine HCl [Effexor XR] 150 mg PO BID 06/04/16 [History] carBAMazepine [TEGretol] 200 mg PO BID 06/04/16 [History] cloNIDine 0.1 MG/24HR PATCH [Catapres-TTS] 1 patch TRANSDERM WE 06/04/16 [ History] INSULIN LISPRO (humaLOG) [humaLOG (formulary)] 10 unit SQ ACHS vial 06/14/16 [ Rx] Insulin Glargine [Lantus] 30 unit SQ DAILY #1 vial 06/14/16 [Rx] Metoclopramide [Reglan] 10 mg PO ACHS #120 tab 06/14/16 [Rx] Pantoprazole [Protonix] 40 mg PO AC-BID tablet. 06/14/16 [Rx] Venlafaxine HCl ER [Effexor XR] 75 mg PO DAILY #30 cap.er.24h 06/14/16 [Rx] Follow up Appointment(s)/Referral(s): Clint Mendoza MD [STAFF PHYSICIAN] - 1 Week Wisam Noble MD [STAFF PHYSICIAN] - 1 Week Discharge Disposition: TRANSFER TO PSYCH HOSP/UNIT
[2016-06-15] MEDS ORDERED: INSULIN GLARGINE 100 UNIT/ML 10 ML VIAL SQ SCH (09:00)
== END 2016-06-14 16:22 | DRG 639 ==
LOC: 6ICU 23:40 → 4MS4W 06-12 19:48
PROVIDERS: ADMIT Family Medicine; ATTEND Family Medicine
DX: E10.10 Type 1 diabetes mellitus with ketoacidosis without coma (principal); E88.89 Other specified metabolic disorders; K31.84 Gastroparesis; E10.42 Type 1 diabetes mellitus with diabetic polyneuropathy; I10 Essential (primary) hypertension; E10.43 Type 1 diabetes mellitus with diabetic autonomic (poly)neuropathy; F17.200 Nicotine dependence, unspecified, uncomplicated; F32.9 Major depressive disorder, single episode, unspecified; F41.9 Anxiety disorder, unspecified; H54.8 Legal blindness, as defined in USA; K21.9 Gastro-esophageal reflux disease without esophagitis; T73.0XXA Starvation, initial encounter; Z79.4 Long term (current) use of insulin; Z79.899 Other long term (current) drug therapy; X58.XXXA Exposure to other specified factors, initial encounter
CPT/HCPCS: 80048; 80051; 80053; 81001; 82009; 82565; 82947; 83036; 83735; 84100; 84520; 85025; 85610; 85730

== ENCOUNTER 2016-06-14 15:47 | Inpatient (IN) | payer MEDICAID ==
[2016-06-14 17:29] LABS: Glucose,Whole Blood 226 mg/dL (75-99)
[2016-06-14] MEDS: FAMOTIDINE 20 MG TAB PO SCH (17:34)
[2016-06-14] MEDS: PANTOPRAZOLE 40 MG TABLET PO SCH (17:34)
[2016-06-14] MEDS: INSULIN LISPRO (humaLOG) 300 UNIT/3 ML VIAL SQ SCH ×4 (17:35→21:54)
[2016-06-14] MEDS: METOCLOPRAMIDE 10 MG TAB PO SCH ×2 (17:47→21:28)
[2016-06-14 20:43] LABS: Glucose,Whole Blood 301 mg/dL (75-99)
[2016-06-14] MEDS ORDERED: VENLAFAXINE HCL ER 150 MG CAP PO SCH (21:00)
[2016-06-14] MEDS: ATORVASTATIN 80 MG TAB PO SCH (21:28)
[2016-06-14] MEDS: LATANOPROST 0.005% OPHTH DROPS 2.5 ML BTL BOTH EYES SCH (21:28)
[2016-06-14] MEDS: METOPROLOL TARTRATE 50 MG TAB PO SCH (21:28)
[2016-06-14] MEDS: carBAMazepine 200 MG TAB PO SCH (21:28)
[2016-06-14] MEDS: LORazepam 0.5 MG TAB PO PRN (21:42)
[2016-06-15 07:10] LABS: Glucose,Whole Blood 355 mg/dL (75-99)
[2016-06-15] MEDS: PANTOPRAZOLE 40 MG TABLET PO SCH ×2 (08:17→17:34)
[2016-06-15] MEDS: FAMOTIDINE 20 MG TAB PO SCH ×2 (08:17→17:34)
[2016-06-15] MEDS: METOCLOPRAMIDE 10 MG TAB PO SCH ×4 (08:17→21:52)
[2016-06-15] MEDS: SERTRALINE 100 MG TAB PO SCH (08:18)
[2016-06-15] MEDS: TIMOLOL 0.5% OPHTH DROPS 5 ML BTL BOTH EYES SCH (08:18)
[2016-06-15] MEDS: VENLAFAXINE HCL ER 75 MG CAP PO SCH (08:18)
[2016-06-15] MEDS: LISINOPRIL 20 MG TAB PO SCH (08:18)
[2016-06-15] MEDS: carBAMazepine 200 MG TAB PO SCH (08:18)
[2016-06-15] MEDS: METOPROLOL TARTRATE 50 MG TAB PO SCH ×2 (08:18→21:52)
[2016-06-15] MEDS: INSULIN LISPRO (humaLOG) 300 UNIT/3 ML VIAL SQ SCH ×8 (08:20→21:58)
[2016-06-15] MEDS ORDERED: INSULIN GLARGINE 100 UNIT/ML 10 ML VIAL SQ SCH (09:00)
[2016-06-15 09:51] LABS: Basophils % (A) 0 %; CH 24.7; CHCM 30.8; Eosinophils # (A) 0.1 k/uL (0-0.7); Eosinophils % (A) 1 %; HCT 32.3 % (39.0-53.0); HDW 2.92; Hypochromasia Moderate; Luc # (Auto) 0.23; Luc % (Auto) 4; Lymphocytes # (A) 1.5 k/uL (1.0-4.8); Lymphocytes % (A) 24 %; MCH 24.9 pg (25.0-35.0); MCHC 30.9 g/dL (31.0-37.0); MCV 80.6 fL (80.0-100.0); Mean Platelet Volume 7.2; Monocytes # (A) 0.4 k/uL (0-1.0); Monocytes % (A) 6 %; Neutrophils % (A) 65 %; RBC 4.01 m/uL (4.30-5.90); RDW 14.9 % (11.5-15.5); WBC 6.1 k/uL (3.8-10.6); WBC (Perox) 6.28
[2016-06-15 10:09] LABS: Anion Gap 12 mmol/L; Blood Urea Nitrogen 9 mg/dL (9-20); Calcium 9.1 mg/dL (8.4-10.2); Carbon Dioxide 24 mmol/L (22-30); Chloride 100 mmol/L (98-107); Glucose 436 mg/dL (74-99); Magnesium 1.5 mg/dL (1.6-2.3); Non-African American GFR(MDRD) >60 (>60 ml/min/1.73 sqM); Potassium 4.1 mmol/L (3.5-5.1); Sodium 136 mmol/L (137-145)
[2016-06-15 12:04] LABS: Glucose,Whole Blood 256 mg/dL (75-99)
--- NOTE | 2016-06-15 12:50 | P.HP ---
Psychiatric H&P - . H&P Date: 06/15/16 History & Physical: IDENTIFYING DATA: Mr. Slater is a 30-year-old legally blind male HISTORY OF PRESENT ILLNESS: We admitted him to the psychiatric unit involuntarily on 06/07/2016 with diagnosis of psychosis NOS. Rule out was on the psychiatric unit he developed acute GI bleed and transferred to ICU. He was discharged from stepdown unit and returned to psychiatry and 06/14/2016. I met with him on the medicine unit and spoke with his father. His father remains concerns about his paranoia and functioning at home. As in the initial assessment, Daniel provided little information. He denies problems or concerns. He was reluctant to talk about the circumstances that led to the admission to the psychiatric unit. When I inquired about the paranoia he replied "it's difficult to explain." However, he denied feeling paranoid or frightened on the psychiatric unit. Response to questions about depression and he replied "a little bit". He denied feeling anxious, tense and nervous. He denied auditory or visual hallucinations, ideas reference, thought insertion, thought broadcasting or thought control. PAST PSYCHIATRIC HISTORY: According to his father he has a history of depression and has received mental health treatment since he was approximately 13 years old. He had a psychiatrist at [facility] in [facility]. His psychotropic medications included Tegretol 200 mg twice a day, sertraline 100 mg daily and Effexor 150 mg twice a day. His father described a marked change his behavior over the 2-3 weeks prior to his first admission to this unit. He stated that Daniel became paranoid. He believed that people were outside the house and on the roof of the house spying on him. His level of paranoia was so extreme that his father covered the álvaro light in his room with cardboard to block people from potentially looking to the álvaro light. However, Daniel continue believe that people were spying and video recording him while he was in the house. He became so paranoid about his privacy that he refused to go the bathroom and began to soiled himself. He believed that people in the local town were coming to "get him". About 2 weeks prior to admission he took a shovel from the barn "to teach the children across the road a lesson". He was paranoid about their behavior. His father took to shovel away to prevent him from harming the children. Prior to admission he called his parents while they were away from the house acutely agitated. He alleged that people have broken into the house. When they came home he had locked himself in a room with knives. They have since locked away the knives and guns in the house. His father has observed him talking to people who were not present. His parents have become so concerned about his paranoia and possible danger to others that they not leave him home alone unsupervised. His father would not take him home from the medicine unit until we receive psychiatric treatment. We proceeded with involuntary hospitalization process and submitted the Petition and supporting Clinical Certificate as to probate Court. He has a probate hearing for involuntary hospitalization on 06/20/2016. PAST MEDICAL HISTORY: He has a history of insulin-dependent diabetes mellitus, visual impairment and gastroparesis. He was admitted to psychiatry on 2016 and transferred to the ICU on 06/09/2016 with a diagnosis of acute GI bleed. He was transferred from ICU on 06/12/2016 and discharged back to psychiatry on 06/14/2016. His discharge diagnoses included acute diabetic ketoacidosis resolved, severe intense nausea and vomiting with a history of diabetic gastroparesis, visual impairment, an episode of coffee-ground emesis secondary to gastroparesis, type 1 diabetes uncontrolled and a component of starvation ketoacidosis. His POC glucose has ranged from 226-355 since re-admission. His RBCs this morning was 4.01, hemoglobin 10.0 and hematocrit 32.3. MCH was 24.9 and MCHC was 30.9. Sodium was low at 136. Phosphorus was elevated at 5.0 and magnesium was decreased at 1.5. ALLERGIES: Cefazolin, latex, duloxetine, pregabalin SUBSTANCE USE HISTORY: He has a history of alcohol and dextromethorphan abuse. He entered a rehabilitation program at [facility] 10/2 years ago and has been abstinent since. FAMILY PSYCHIATRIC/SUBSTANCE USE HISTORY: He is unaware of a family history of mental illness. LEGAL HISTORY: He has no history of legal problems. SOCIAL HISTORY: He was raised in an intact family. He graduated from high school. He is single and has no children. He lives with his parents in [facility]. He is unemployed and receives disability. MENTAL STATUS EXAM: He presented as a casually groomed 30-year-old man who is laying comfortably on his hospital bed. He appeared to attend to the interview. He appeared to have difficulty organizing his thoughts at times appeared to be responding to internal stimuli. He had no prominent physical abnormalities were distinguishing features. He had a flat facial expression. He showed psychomotor retardation but no abnormal involuntary movements. Speech was not spontaneous. He did not appear guarded or suspicious. He did not express suicidal ideation or wishes. His thinking was concrete but his associations appeared logical and coherent. STRENGTHS: Supportive family, stable housing, stable income, involvement with outpatient mental health care. WEAKNESSES: Insulin-dependent diabetes mellitus, decreased visual acuity, paranoia,. IMPRESSION: He is a 30-year-old single male who has a history of a depressive disorder, visual impairment type 1 diabetes and gastroparesis. His admissions been complicated by the diabetes and gastroparesis [facility] increasing paranoia, delusional beliefs and auditory and visual hallucinations. The psychotic symptoms developed over a period of 2-3 weeks prior to admission. He has no recent history of alcohol or drug use. He is had no prior psychotic episodes or inpatient treatment. He appears depressed but shows no signs and symptoms of maria guadalupe or hypomania. The psychosis may be related to his perceptual disability and/or a mood or psychotic disorder. He should be treated on an inpatient basis with a combination of psychopharmacology and multimodal therapy. PRINCIPLE DIAGNOSIS: Unspecified psychotic disorder, rule out major depressive disorder with psychotic features, rule out bipolar disorder depressed with psychotic features, rule out schizophrenia, history of alcohol and dextromethorphan abuse, insulin-dependent diabetes mellitus, gastroparesis, visual impairment, history of ketoacidosis, history of a GI bleed RECOMMENDATION: Proceed with involuntary hospitalization. Continue the Effexor XR 75 mg daily and discontinue in 1-2 days. Continue sertraline 100 mg daily. Begin Seroquel 50mg bid titrated according to clinical response and tolerance. Decrease Tegretol to 200 mg daily and discontinuing to 3 days. Consult medicine for initial physical exam and medical history. funeral workers to complete the initial psychosocial assessment. Encourage participation in therapeutic groups and activities. Evaluate clinical status response to treatment on a daily basis. Allergies Allergy/AdvReac Type Severity Reaction Status Date / Time adhesive tape Allergy Rash/Hives Verified 06/10/16 10:32 cefazolin Allergy Rash/Hives Verified 06/10/16 10:32 latex Allergy Rash/Hives Verified 06/10/16 10:32 duloxetine [From Cymbalta] AdvReac Confusion Verified 06/10/16 10:32 pregabalin [From Lyrica] AdvReac Hallucinati Verified 06/10/16 10:32 ons Vital Signs Temp 98.0 F 06/15/16 06:47 Pulse 111 H 06/15/16 06:47 Resp 18 06/15/16 06:47 BP 130/77 06/15/16 06:47 Pulse Ox 98 06/14/16 17:15 Intake & Output 06/14/16 06/15/16 06/15/16 18:59 06:59 18:59 Intake Total 250 Balance 250 Weight 76.657 kg Intake: Oral 250 Laboratory Last Values POC Glucose (mg/dL) 355 mg/dL (75-99) H 06/15/16 06:37 POC Glu Director Of Counseling ID Nakita Hanna 06/15/16 06:37 06/15/16 08:03 06/15/16 10:01 06/15/16 12:40
[2016-06-15] MEDS ORDERED: INSULIN GLARGINE 100 UNIT/ML 10 ML VIAL SQ ONE (13:00)
[2016-06-15] MEDS ORDERED: INSULIN LISPRO (humaLOG) 300 UNIT/3 ML VIAL SQ SCH ×2 (13:12→17:30)
[2016-06-15 13:51] LABS: Glucose,Whole Blood 232 mg/dL (75-99)
[2016-06-15] MEDS: LORazepam 0.5 MG TAB PO PRN (13:52)
[2016-06-15 17:32] LABS: Glucose,Whole Blood 137 mg/dL (75-99)
[2016-06-15] MEDS ORDERED: INSULIN LISPRO (humaLOG) 300 UNIT/3 ML VIAL SQ ONE (17:57)
[2016-06-15 20:11] LABS: Glucose,Whole Blood 207 mg/dL (75-99)
[2016-06-15] MEDS: ATORVASTATIN 80 MG TAB PO SCH (21:51)
[2016-06-15] MEDS: QUEtiapine 50 MG TAB PO SCH (21:53)
[2016-06-15] MEDS: LATANOPROST 0.005% OPHTH DROPS 2.5 ML BTL BOTH EYES SCH (22:02)
[2016-06-16 07:34] LABS: Glucose,Whole Blood 336 mg/dL (75-99)
[2016-06-16] MEDS: INSULIN LISPRO (humaLOG) 300 UNIT/3 ML VIAL SQ SCH ×8 (08:18→20:34)
[2016-06-16] MEDS: FAMOTIDINE 20 MG TAB PO SCH ×2 (09:47→17:36)
[2016-06-16] MEDS: QUEtiapine 50 MG TAB PO SCH ×2 (09:47→21:11)
[2016-06-16] MEDS: carBAMazepine 200 MG TAB PO SCH ×2 (09:47→10:33)
[2016-06-16] MEDS: PANTOPRAZOLE 40 MG TABLET PO SCH ×2 (09:47→17:36)
[2016-06-16] MEDS: METOPROLOL TARTRATE 50 MG TAB PO SCH ×2 (09:47→21:10)
[2016-06-16] MEDS: METOCLOPRAMIDE 10 MG TAB PO SCH ×4 (09:47→21:10)
[2016-06-16] MEDS: LISINOPRIL 20 MG TAB PO SCH (09:47)
[2016-06-16] MEDS: VENLAFAXINE HCL ER 75 MG CAP PO SCH ×2 (09:48→10:33)
[2016-06-16] MEDS: GABAPENTIN 400 MG CAP PO PRN (09:48)
[2016-06-16] MEDS: SERTRALINE 100 MG TAB PO SCH (09:48)
[2016-06-16] MEDS: INSULIN GLARGINE 100 UNIT/ML 10 ML VIAL SQ SCH (10:04)
[2016-06-16] MEDS: TIMOLOL 0.5% OPHTH DROPS 5 ML BTL BOTH EYES SCH (10:04)
[2016-06-16 12:23] LABS: Glucose,Whole Blood 208 mg/dL (75-99)
--- NOTE | 2016-06-16 13:28 | P.PN ---
Progress Note - Text SUBJECTIVE: I reviewed the medical record, interviewed Mr. Slater discuss his treatment and treatment plan during team meeting. He is refused to participate in therapeutic groups and activities. He refused breakfast this morning. He stated that he is not interested in attending groups. He talked about his experience at [facility] and alleged that he "does much better" on one-to-one rather than in groups. He stated he did not eat this morning because he was not hungry. He denied feeling nauseous or having had episodes of vomiting. He denied feeling suspicious or experiencing auditory or visual hallucinations. He feels anxious about being on the unit. He denied feeling depressed or having thoughts of or suicide. He denied side effects initial dose of Seroquel. OBJECTIVE: He presented as a casually groomed 30-year-old male who is laying comfortably in bed. He would not get out of bed for the interview. He looked at my direction and appeared to attend to the exam. He had no distinguishing features or prominent physical abnormalities. He had a flat facial expression. He showed psychomotor retardation but no abnormal involuntary movements. His speech was nonspontaneous but had normal rate, rhythm and volume. He had no articulation difficulties. His affect was flat. He denied suicidal ideation or wishes. He denied homicidal ideation. He denied feeling hopeless, helpless or worthless. He did not express phobias, ideas reference, paranoid ideation or delusional thoughts. His thinking was concrete but his associations were coherent and logical. He did not appear to be responding to internal stimuli. His POC glucose has ranged from 207-336 over the last 24 hours. He received 24 units of Humalog yesterday and 6 units this morning. ASSESSMENT: He continues be withdrawn and anxious. We are having difficulty controlling his blood sugar. He has had no recent episodes of vomiting. PLAN: Continue inpatient psychiatric hospitalization. Consult medicine for management of his diabetes. Continue Zoloft 100 mg daily. Discontinue Effexor XR 75 mg tomorrow and Tegretol 200 mg on Sunday. Continue Seroquel 50 mg twice a day and titrated according to clinical response and tolerance. Monitor nutritional and fluid intake. Consult medicine stat if he begins to vomit. 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 Encourage participation in therapeutic groups and activities. Evaluate clinical status response to treatment daily basis.
[2016-06-16 17:31] LABS: Glucose,Whole Blood 182 mg/dL (75-99)
[2016-06-16] MEDS: LORazepam 0.5 MG TAB PO PRN (17:36)
[2016-06-16 20:22] LABS: Glucose,Whole Blood 111 mg/dL (75-99)
[2016-06-16] MEDS: LATANOPROST 0.005% OPHTH DROPS 2.5 ML BTL BOTH EYES SCH (21:09)
[2016-06-16] MEDS: ATORVASTATIN 80 MG TAB PO SCH (21:10)
[2016-06-16 22:00] LABS: Glucose,Whole Blood 101 mg/dL (75-99)
[2016-06-17 06:22] LABS: Glucose,Whole Blood 463 mg/dL (75-99)
[2016-06-17 06:22] LABS: Glucose,Whole Blood 464 mg/dL (75-99)
[2016-06-17] MEDS: INSULIN GLARGINE 100 UNIT/ML 10 ML VIAL SQ SCH (08:16)
[2016-06-17] MEDS: INSULIN LISPRO (humaLOG) 300 UNIT/3 ML VIAL SQ SCH ×8 (08:17→20:20)
[2016-06-17] MEDS: METOCLOPRAMIDE 10 MG TAB PO SCH ×3 (08:35→17:31)
[2016-06-17] MEDS: FAMOTIDINE 20 MG TAB PO SCH ×2 (08:35→17:31)
[2016-06-17] MEDS: PANTOPRAZOLE 40 MG TABLET PO SCH ×2 (08:35→17:31)
[2016-06-17] MEDS: METOPROLOL TARTRATE 50 MG TAB PO SCH (08:36)
[2016-06-17] MEDS: LISINOPRIL 20 MG TAB PO SCH (08:36)
[2016-06-17] MEDS: QUEtiapine 100 MG TAB PO SCH (08:36)
[2016-06-17] MEDS: SERTRALINE 100 MG TAB PO SCH (08:36)
[2016-06-17] MEDS: TIMOLOL 0.5% OPHTH DROPS 5 ML BTL BOTH EYES SCH (08:36)
[2016-06-17 10:24] LABS: Glucose,Whole Blood 357 mg/dL (75-99)
--- NOTE | 2016-06-17 11:35 | P.PN ---
Progress Note - Text Interval history: The patient is found in his room. He states he does not feel well enough to follow me to an interview room. He does attempt to stand he reports feeling weak and dizzy he is instructed to sit on his bed in Stefano's orthostatic. He felt his blood sugar may have been low we did check a blood sugar and it was actually elevated. He had eaten this morning and did receive insulin. Vital signs reviewed heart rate has been consistently high. He states that he is isolating in his room as he does not feel comfortable in groups. Mental status exam: The patient is a male appearing his stated age he is dressed in his own clothing. His hair is black his cook is brown. Eye contact is appropriate he maintains a very bland affect and demonstrates some mild psychomotor slowing. He reports no acute suicidal or homicidal ideation intent or plan he is endorsing no auditory or visual hallucinations. He endorses no specific delusions. He does not appear hypomanic or manic. Thought process is fairly linear there are pauses that are unexpected between him providing answers and questions being asked. He demonstrates no agitated behavior no verbal or physical aggressiveness. Plan: The patient will continue on his current psychotropic medications it appears he is being tapered off of Effexor and Tegretol. If not already done we will request an EKG to evaluate his tachycardia to be sure and his sinus rhythm. We continue to contact his primary care doctor regarding management of diabetes. We will monitor him for safety and encourage participation in the milieu.
[2016-06-17 12:31] LABS: Glucose,Whole Blood 248 mg/dL (75-99)
[2016-06-17] MEDS: LORazepam 0.5 MG TAB PO PRN (13:51)
[2016-06-17 17:21] LABS: Glucose,Whole Blood 87 mg/dL (75-99)
[2016-06-17 17:57] LABS: Appearance,Urine Clear (Clear); Bilirubin,Urine Negative (Negative); Glucose,Urine (UA) 3+ (Negative); Ketones,Urine Negative (Negative); Leukocyte Esterase,Urine Negative (Negative); Nitrite,Urine Negative (Negative); PH, Urine 5.5 (5.0-8.0); Protein,Urine Negative (Negative); Specific Gravity,Urine 1.005 (1.001-1.035); UA Billing (MACRO vs. MICRO) CHEM; Urobilinogen,Urine <2.0 mg/dL (<2.0)
[2016-06-17] MEDS ORDERED: ARTIFICIAL TEARS OINTMENT 3.5 GM TUBE BOTH EYES PRN (18:45)
[2016-06-17 20:13] LABS: Glucose,Whole Blood 269 mg/dL (75-99)
[2016-06-17] MEDS ORDERED: METOCLOPRAMIDE 10 MG TAB ONE (21:00)
[2016-06-17] MEDS ORDERED: LORazepam 0.5 MG TAB ONE (21:00)
[2016-06-17] MEDS ORDERED: METOPROLOL TARTRATE 50 MG TAB ONE (21:00)
[2016-06-17] MEDS ORDERED: ATORVASTATIN 80 MG TAB ONE (21:00)
[2016-06-17] MEDS ORDERED: QUEtiapine 100 MG TAB ONE (21:00)
[2016-06-18 06:15] LABS: Glucose,Whole Blood 334 mg/dL (75-99)
[2016-06-18] MEDS: INSULIN LISPRO (humaLOG) 300 UNIT/3 ML VIAL SQ SCH ×10 (08:04→20:29)
[2016-06-18] MEDS: METOCLOPRAMIDE 10 MG TAB PO SCH ×5 (08:08→21:10)
[2016-06-18] MEDS: ARTIFICIAL TEARS-HYPROMELLOSE DROPS 15 ML BTL BOTH EYES PRN (08:08)
[2016-06-18] MEDS: SERTRALINE 100 MG TAB PO SCH (08:08)
[2016-06-18] MEDS: QUEtiapine 100 MG TAB PO SCH ×3 (08:11→21:57)
[2016-06-18] MEDS: FAMOTIDINE 20 MG TAB PO SCH ×2 (08:11→18:36)
[2016-06-18] MEDS: PANTOPRAZOLE 40 MG TABLET PO SCH ×2 (08:12→18:36)
--- NOTE | 2016-06-18 09:59 | P.PN ---
Progress Note - Text Interval history: The patient is found in his room he is lying in bed. He does not wish to follow me to an interview room. He continues to assert he will not attend groups as he is not a "group person". He expresses concerns regarding his vital this morning indicating the high they were reviewed and are within normal limits this morning. There has been some variability during his hospitalization however. Blood sugars continued to be variable. He is reporting no acute symptoms at this time he has no questions regarding medication. Mental status exam: The patient is lying in bed he is awake he makes intermittent eye contact. Speech is mainly responsive to questions asked with minimal spontaneous speech. Speech is fluent nonpressured. He is reporting no suicidal or homicidal ideation intent or plan. He is endorsing no auditory or visual hallucinations no specific delusions. Affect is constricted with little reactivity. He demonstrates no verbal or physical aggressiveness. He remains oriented to person place and date. Plan: The patient will continue on his current medications. We will continue to monitor his blood pressure blood sugar. He is encouraged to ambulate more during the course of the day and consider some group participation. We will continue to monitor for safety.
[2016-06-18] MEDS: LISINOPRIL 20 MG TAB PO SCH (10:08)
[2016-06-18] MEDS: METOPROLOL TARTRATE 50 MG TAB PO SCH ×3 (10:08→21:10)
[2016-06-18] MEDS: INSULIN GLARGINE 100 UNIT/ML 10 ML VIAL SQ SCH (10:33)
[2016-06-18] MEDS: LORazepam 0.5 MG TAB PO PRN ×2 (10:35→21:57)
[2016-06-18] MEDS: TIMOLOL 0.5% OPHTH DROPS 5 ML BTL BOTH EYES SCH (11:20)
[2016-06-18 12:23] LABS: Glucose,Whole Blood 361 mg/dL (75-99)
[2016-06-18 16:51] LABS: Glucose,Whole Blood 54 mg/dL (75-99)
[2016-06-18 17:11] LABS: Glucose,Whole Blood 72 mg/dL (75-99)
[2016-06-18] MEDS: ATORVASTATIN 80 MG TAB PO SCH ×2 (18:11→21:10)
[2016-06-18] MEDS: LATANOPROST 0.005% OPHTH DROPS 2.5 ML BTL BOTH EYES SCH ×2 (18:11→21:08)
[2016-06-18 18:30] LABS: Glucose,Whole Blood 87 mg/dL (75-99)
[2016-06-18 20:20] LABS: Glucose,Whole Blood 267 mg/dL (75-99)
[2016-06-18] MEDS ORDERED: INSULIN LISPRO (humaLOG) 300 UNIT/3 ML VIAL SQ STA (20:25)
[2016-06-19 00:28] LABS: Glucose,Whole Blood 165 mg/dL (75-99)
[2016-06-19] MEDS: ACETAMINOPHEN TAB 325 MG TAB PO PRN (00:29)
[2016-06-19] MEDS ORDERED: MELATONIN 5 MG TABLET PO PRN (00:34)
[2016-06-19 06:23] LABS: Glucose,Whole Blood 303 mg/dL (75-99)
--- NOTE | 2016-06-19 09:16 | P.HPIM ---
History of Present Illness H&P Date: 06/15/16 A 30-year-old male being seen on the mental health unit at the request of the attending for medical management. Patient was hospitalized on June 09 and discharged on June 14 at that hospitalization the patient was treated for acute diabetic ketoacidosis. Patient had episodes of severe nausea vomiting. Patient does have a history of diabetic gastroparesis. Patient has a known history of type I uncontrolled diabetes on admission hemoglobin A1c was 8.9. Patient was stabilized treated and discharged on the . Patient was admitted to the mental health unit on the for further medical management of patient's anxiety depressive disorder. The last admission on patient was seen by the art educator as well. Patient has had multiple admissions for treatment of his diabetic ketoacidosis. The last admission on June 09 patient parents brought the patient into the emergency room. Patient's blood sugar was noted to be elevated. Additionally the family was concerned the patient was having paranoia visual and auditory hallucinations. And at that time they requested the patient be stabilized and admitted to the mental health unit. Subsequent the patient was admitted to the mental health unit. Patient legal status remains involuntary patient has a probate hearing schedule on June 20. Patient did have an episode of coffee-ground emesis. Patient was transferred from the psychiatric unit to the medicine service on June 09 following that episode. He was treated for a GI bleed. There was no further episodes patient stabilized and transferred back to the mental health unit on June 14 Review of Systems Essentially unremarkable except as mentioned in the present illness Past Medical History Past Medical History: Diabetes Mellitus Additional Past Medical History / Comment(s): bilateral glaucoma, Tachycardia, diabetic gastropariesis, neuropathy History of Any Multi-Drug Resistant Organisms: None Reported Additional Past Surgical History / Comment(s): eye surgery Past Anesthesia/Blood Transfusion Reactions: No Reported Reaction Past Psychological History: Anxiety, Bipolar, Depression Smoking Status: Current every day smoker Past Alcohol Use History: None Reported Past Drug Use History: None Reported Medications and Allergies Home Medications Medication Instructions Recorded Confirmed Type Atorvastatin [Lipitor] 80 mg PO HS 06/04/16 06/18/16 History Gabapentin [Neurontin] 800 mg PO TID PRN 06/04/16 06/18/16 History LORazepam [Ativan] 0.25 - 0.5 mg PO BID PRN 06/04/16 06/18/16 History Latanoprost [Xalatan 0.005%] 1 drop BOTH EYES HS 06/04/16 06/18/16 History Lisinopril [Zestril] 20 mg PO DAILY 06/04/16 06/18/16 History Metoprolol Tartrate [Lopressor] 100 - 150 mg PO BID 06/04/16 06/18/16 History Pantoprazole Sodium [Protonix] 40 mg PO AC-BID 06/04/16 06/18/16 History Ranitidine HCl [Zantac] 150 mg PO AC-BID 06/04/16 06/18/16 History Sertraline [Zoloft] 100 mg PO DAILY 06/04/16 06/18/16 History Timolol 0.5% Ophth Soln [Timoptic 1 drop BOTH EYES DAILY 06/04/16 06/18/16 History 0.5% Ophth Soln] Venlafaxine HCl [Effexor XR] 150 mg PO BID 06/04/16 06/18/16 History carBAMazepine [TEGretol] 200 mg PO BID 06/04/16 06/18/16 History cloNIDine 0.1 MG/24HR PATCH 1 patch TRANSDERM WE 06/04/16 06/18/16 History [Catapres-TTS] Allergies Allergy/AdvReac Type Severity Reaction Status Date / Time adhesive tape Allergy Rash/Hives Verified 06/18/16 21:22 cefazolin Allergy Rash/Hives Verified 06/18/16 21:22 latex Allergy Rash/Hives Verified 06/18/16 21:22 duloxetine [From Cymbalta] AdvReac Confusion Verified 06/18/16 21:22 pregabalin [From Lyrica] AdvReac Hallucinati Verified 06/18/16 21:22 ons Physical Exam Vitals: Vital Signs Temp Pulse Resp BP 06/19/16 06:50 97.6 F 95 18 112/55 06/18/16 21:11 141 H 16 105/66 06/18/16 10:11 137 H 16 114/71 GENERAL APPEARANCE: 30-year-old male patient is alert, flat affect oriented, in no acute distress. Being seen on the mental health unit. Patient needs much encouragement to eat this been variation in the blood sugar reading VITAL SIGNS: Reviewed HEENT: Head is normocephalic and atraumatic. Pupils are equal and reactive. The nares are patent. Oropharynx is clear without lesions. NECK: Supple without lymphadenopathy. Traches midline. HEART: S1, S2. Regular rate and rhythm. No murmur noted LUNGS: No crackles or wheezes are heard. On room air adequate air movement ABDOMEN: Soft, nontender, nondistended with good bowel sounds. No peritoneal signs. No palpable organomegaly or masses. EXTREMITIES: Normal skin color and turgor. No cyanosis, rash, ulceration, clubbing or edema. Radial pedal pulses are 2/4 bilaterally. NEUROLOGICAL: No focal deficits. Strength and sensation are grossly intact. Results CBC & Chem 7: 06/15/16 09:22 06/15/16 09:22 Labs: Abnormal Lab Results - Last 24 Hours (Table) 06/18/16 06/18/16 06/18/16 Range/Units 12:18 16:48 17:08 POC Glucose (mg/dL) 361 H 54 L 72 L (75-99) mg/dL 06/18/16 06/19/16 06/19/16 Range/Units 20:18 00:26 06:21 POC Glucose (mg/dL) 267 H 165 H 303 H (75-99) mg/dL Thrombosis Risk Factor Assmnt - Choose All That Apply Each Factor Represents 1 point: Obesity (BMI >25) Thrombosis Risk Factor Assessment Total Risk Factor Score: 1 Thrombosis Risk Factor Assessment Level: Low Risk Assessment and Plan Plan: Impression Recent admission for an acute diabetic ketoacidosis resolving Recurrent admissions for diabetic ketoacidosis. Type 1 diabetes uncontrolled episodes of hypoglycemia and hyperglycemia with a hemoglobin A1c 8.9 Anxiety depressive disorder History of gastroparesis Recent episode of acute diabetic gastroparesis with coffee-ground emesis resolved Legally blind Plan Monitor blood sugars while on the mental health unit the insulin will be adjusted according to the blood sugars Encourage patient to take a diet monitor caloric intake Encourage patient to be ambulatory on the unit Will follow patient while on the mental health unit to address blood sugars as indicated Further adjustment to the Lantus and Humalog will be made according to the blood sugars agricultural extension educator to see patient on the mental health unit The above dictated assessment and findings were discussed with dr aide Powell and the plan of care have been dictated as directed. Rosemarie Shirley nurse practitioner acting as a scribe for dr noble Time with Patient: Greater than 30
[2016-06-19] MEDS: INSULIN LISPRO (humaLOG) 300 UNIT/3 ML VIAL SQ SCH ×8 (09:37→21:53)
[2016-06-19] MEDS: FAMOTIDINE 20 MG TAB PO SCH ×2 (10:00→17:57)
[2016-06-19] MEDS: PANTOPRAZOLE 40 MG TABLET PO SCH ×2 (10:01→17:57)
[2016-06-19] MEDS: QUEtiapine 100 MG TAB PO SCH ×2 (10:01→21:31)
[2016-06-19] MEDS: SERTRALINE 100 MG TAB PO SCH (10:01)
[2016-06-19] MEDS: METOPROLOL TARTRATE 50 MG TAB PO SCH ×2 (10:01→21:34)
[2016-06-19] MEDS: LISINOPRIL 20 MG TAB PO SCH (10:01)
[2016-06-19] MEDS: METOCLOPRAMIDE 10 MG TAB PO SCH ×4 (10:01→21:31)
[2016-06-19] MEDS: INSULIN GLARGINE 100 UNIT/ML 10 ML VIAL SQ SCH (10:12)
[2016-06-19] MEDS: TIMOLOL 0.5% OPHTH DROPS 5 ML BTL BOTH EYES SCH (10:26)
[2016-06-19 12:19] LABS: Glucose,Whole Blood 313 mg/dL (75-99)
[2016-06-19] MEDS: LORazepam 0.5 MG TAB PO PRN (12:22)
--- NOTE | 2016-06-19 13:05 | P.PN ---
Progress Note - Text CLINICAL PROBLEMS: Mr. Slater is a 30-year-old single male with history of insulin-dependent diabetes mellitus and a visual impairment secondary to diabetes. His history of mood disorder but presented with paranoia and psychotic symptoms. The psychiatric hospitalization was complicated by his uncontrolled diabetes and an episode of gastroparesis. 24 HOUR EVENTS: He has been eating most meals initial no episodes of vomiting. He continues refused to participate in therapeutic groups and activities. He is posed no management problem and displayed no episodes of behavioral dyscontrol. He spends most of his time alone in his room and does not socialize with staff or peers. EXAMINATION: He presented as a casually groomed 30-year-old male who is laying In bed. He looked at my direction during the conversation and appeared to attend to the interview. He is a blunted but bright facial expression. He showed slight psychomotor retardation but no abnormal involuntary movements. His speech was spontaneous with normal rate, rhythm and volume. He had no articulation difficulties. His affect was blunted but stable and appropriate. He denied suicidal ideation or wishes. He denied homicidal ideation. He denied feeling hopeless, helpless or worthless. We talked about the problems that led to this admission. He minimized his suspiciousness and auditory hallucinations and talked about his increased auditory acuity since he lost his vision. He did not expressed ideas reference or paranoid ideation. His thinking was concrete but his associations were coherent and logical. He denied hallucinations and did not appear to responding to internal stimuli. PERTINENT DATA: His POC glucose range from 72-361 over the last 24 hours. He received a total of 16 units of Humalog coverage in addition to the regular dosing of Lantus 38 units daily. He met with his court appointed state attorney and father and deferred the probate hearing. ASSESSMENT: He is less guarded, paranoid or suspicious. He is more engaging during our interviews but continues avoided social contacts on the unit. PLAN: Continue inpatient hospitalization. Continue suicide precautions with 15 minute checks. Coordinate management of diabetes with medical office supervisor. Continue Zoloft 100 mg daily. Continue Seroquel 100 mg by mouth twice a day and titrated according to clinical response and tolerance. Continue melatonin 5 mg at bedtime. Obtain collateral information from his father. Continue medications for his diabetes, hypertension and visual impairment including artificial tear drops one both eyes 3 times a day when necessary, Lipitor 80 mg at bedtime, Catapres TTS 0.1 mg daily, Pepcid 20 mg by mouth before meals twice a day, Neurontin 800 mg 3 times a day, Lantus a 38 mg subcu daily, Xalatan 0.005 % in both eyes at bedtime, Zestril 20 mg daily, Reglan 10 mg before meals at bedtime, Lopressor 100 mg twice a day, Protonix 40 mg by mouth before meals twice a day and Timoptic one drop both eyes daily. Continue to encourage participation in therapeutic groups and activities as tolerated. Evaluate clinical status response to treatment on a daily basis.
[2016-06-19] MEDS: ARTIFICIAL TEARS-HYPROMELLOSE DROPS 15 ML BTL BOTH EYES PRN (13:53)
[2016-06-19 17:13] LABS: Glucose,Whole Blood 138 mg/dL (75-99)
[2016-06-19 20:45] LABS: Glucose,Whole Blood 137 mg/dL (75-99)
[2016-06-19] MEDS: ATORVASTATIN 80 MG TAB PO SCH (21:30)
[2016-06-19] MEDS: LATANOPROST 0.005% OPHTH DROPS 2.5 ML BTL BOTH EYES SCH (21:30)
[2016-06-19] MEDS ORDERED: INSULIN LISPRO (humaLOG) 300 UNIT/3 ML VIAL SQ ONE (21:50)
[2016-06-20 07:25] LABS: Glucose,Whole Blood 295 mg/dL (75-99)
[2016-06-20] MEDS: METOCLOPRAMIDE 10 MG TAB PO SCH ×4 (08:15→22:16)
[2016-06-20] MEDS: SERTRALINE 100 MG TAB PO SCH (08:15)
[2016-06-20] MEDS: PANTOPRAZOLE 40 MG TABLET PO SCH ×2 (08:15→19:01)
[2016-06-20] MEDS: LISINOPRIL 20 MG TAB PO SCH (08:15)
[2016-06-20] MEDS: METOPROLOL TARTRATE 50 MG TAB PO SCH ×2 (08:16→22:15)
[2016-06-20] MEDS: FAMOTIDINE 20 MG TAB PO SCH ×2 (08:17→18:53)
[2016-06-20] MEDS: QUEtiapine 100 MG TAB PO SCH (08:19)
[2016-06-20] MEDS: INSULIN LISPRO (humaLOG) 300 UNIT/3 ML VIAL SQ SCH ×8 (08:52→22:12)
[2016-06-20] MEDS: INSULIN GLARGINE 100 UNIT/ML 10 ML VIAL SQ SCH (08:58)
[2016-06-20] MEDS: TIMOLOL 0.5% OPHTH DROPS 5 ML BTL BOTH EYES SCH (09:00)
--- NOTE | 2016-06-20 12:20 | P.PN ---
Progress Note - Text CLINICAL PROBLEMS: He is an insulin-dependent diabetic who has a history of mood disorder. He presented to unit with increasing paranoia, paranoid delusional beliefs and auditory and visual hallucinations. His hospital stay has been complicated by the diabetes, diabetic ketoacidosis and diabetic gastroparesis. 24 HOUR EVENTS: Nursing reported that he became paranoid last night and expressed vague homicidal thoughts. He has not attended therapeutic groups or activities. He spends most of his time alone in his room. He does not initiate social contact with staff or peers. He comes out of his room only for meals or for medications. EXAMINATION: He was laying in bed when I arrive to his room. He was alert and attended to the interview. We talk about his concerns last night. He stated he had difficulty sleeping last night and that he heard that he was discharged "if I can walk down the stairs." He alleged that his father visited him last night and told him that he can be discharged. He stated he knows that his father owns the hospital and he can leave whenever he wants. When I asked him how he knows this he replied that his father told him last night. He showed psychomotor retardation but no abnormal involuntary movements. His speech was not spontaneous and had decreased rate, rhythm and volume. He had no articulation difficulties. His affect was blunted but stable and appropriate. He denied suicidal ideation or wishes. He denied feeling hopeless, helpless or worthless. He did not express ideas reference during our interview. He denied that he was currently hearing his father's voice he did not appear to be responding to internal stimuli. His thinking was concrete but his associations appeared logical and organized. PERTINENT DATA: His POC glucose tests ranged from 101-269 over the last 24 hours. He received a total of 10 units of Humalog. He's had no episodes of vomiting. ASSESSMENT: His blood sugars remained poorly controlled required frequent administration of Humalog. He is experiencing auditory hallucinations and expressing fragmented delusional beliefs. PLAN: Continue inpatient psychiatric hospitalization. Increase Seroquel to 100 mg daily and 200 mg at bedtime and continued to titrated according to clinical response and tolerance. Continue sertraline 100 mg daily. Continue melatonin 5 mg at bedtime PRN for sleep. Continue medications for his diabetes, hypertension and visual impairment including artificial tear drops one both eyes 3 times a day when necessary, Lipitor 80 mg at bedtime, Catapres TTS 0.1 mg daily, Pepcid 20 mg by mouth before meals twice a day, Neurontin 800 mg 3 times a day, Lantus a 38 mg subcu daily, Xalatan 0.005% in both eyes at bedtime , Zestril 20 mg daily, Reglan 10 mg before meals at bedtime, Lopressor 100 mg twice a day, Protonix 40 mg by mouth before meals twice a day and Timoptic one drop both eyes daily. Continue to encourage participation in therapeutic groups and activities as tolerated. Evaluate clinical status response to treatment on a daily basis.
[2016-06-20 12:22] LABS: Glucose,Whole Blood 233 mg/dL (75-99)
[2016-06-20 17:47] LABS: Glucose,Whole Blood 169 mg/dL (75-99)
[2016-06-20] MEDS: LORazepam 0.5 MG TAB PO PRN (18:15)
[2016-06-20 18:50] LABS: Glucose,Whole Blood 204 mg/dL (75-99)
[2016-06-20 20:01] LABS: Glucose,Whole Blood 188 mg/dL (75-99)
[2016-06-20] MEDS: LATANOPROST 0.005% OPHTH DROPS 2.5 ML BTL BOTH EYES SCH (22:16)
[2016-06-20] MEDS: ATORVASTATIN 80 MG TAB PO SCH (22:16)
[2016-06-20] MEDS: QUEtiapine 200 MG TAB PO SCH (22:23)
[2016-06-21 06:00] LABS: Glucose,Whole Blood 189 mg/dL (75-99)
[2016-06-21] MEDS: PANTOPRAZOLE 40 MG TABLET PO SCH ×2 (08:28→16:38)
[2016-06-21] MEDS: INSULIN LISPRO (humaLOG) 300 UNIT/3 ML VIAL SQ SCH ×9 (08:29→21:07)
[2016-06-21] MEDS: FAMOTIDINE 20 MG TAB PO SCH ×2 (08:29→16:37)
[2016-06-21] MEDS: METOPROLOL TARTRATE 50 MG TAB PO SCH ×2 (08:34→21:37)
[2016-06-21] MEDS: LISINOPRIL 20 MG TAB PO SCH (08:34)
[2016-06-21] MEDS: METOCLOPRAMIDE 10 MG TAB PO SCH ×4 (08:35→21:37)
[2016-06-21] MEDS: TIMOLOL 0.5% OPHTH DROPS 5 ML BTL BOTH EYES SCH (08:35)
[2016-06-21] MEDS: SERTRALINE 100 MG TAB PO SCH (08:36)
[2016-06-21] MEDS ORDERED: QUEtiapine 100 MG TAB PO SCH (09:00)
[2016-06-21] MEDS: INSULIN GLARGINE 100 UNIT/ML 10 ML VIAL SQ SCH (10:07)
[2016-06-21 12:59] LABS: Glucose,Whole Blood 206 mg/dL (75-99)
--- NOTE | 2016-06-21 13:00 | P.PN ---
Progress Note - Text CLINICAL PROBLEMS: Insulin-dependent diabetes mellitus, visual impairment, unspecified psychotic disorder, rule out bipolar disorder depressed with psychotic features, rule out major depressive disorder depressed with psychotic features, rule out schizoaffective disorder 24 HOUR EVENTS: He is posed no management problem and displayed no episodes of behavioral dyscontrol. He continues to isolate in his room refusing to participate in therapeutic groups and activities. He is eating meals and has had no episodes of vomiting. EXAMINATION: He presented as a casually groomed 30-year-old male who was pleasant on approach. He did not look towards me during the interview but attended to the interview. Unlike prior counters he came to my office today. He had no distinguishing features or prominent physical abnormalities. He had a blunted but bright facial expression. He showed slight psychomotor retardation but no abnormal involuntary movements. His speech was spontaneous with decreased rate and volume. His affect was blunted but stable and appropriate. He denied suicidal ideation or wishes. He denied homicidal ideation. He denied feeling hopeless, helpless or worthless. He did not express phobias, ideas reference, paranoid ideation or delusional thoughts. He denied experiencing auditory hallucinations did not appear to be responding to internal stimuli. He did not talk about his belief his father visiting him at night with believed that his father owns the hospital. His thinking was concrete but his associations were coherent and logical. PERTINENT DATA: He is POC glucose last 24 hours ranged from 137-269. He received a total of 10 units of Humalog coverage yesterday. ASSESSMENT: He is less resistant to leaving his room today. He does not appear psychotic and did not express psychotic thoughts or beliefs. Overall he appears moderately mentally is much improved from admission. PLAN: Continue inpatient hospitalization. Obtain collateral information from family. crop farm workers to coordinate aftercare has [facility]. Continue Seroquel 100 mg daily and quetiapine 3 mg daily in divided doses. Continue to titrate Seroquel according to clinical response and tolerance. Encourage participation in therapeutic groups and activities. Encourage him to leave his room and socialize with peers. Evaluate clinical status response to treatment on a daily basis.
[2016-06-21] MEDS ORDERED: cloNIDine 0.1 MG/24HR PATCH 1 PATCH PATCH TRANSDERM SCH (17:00)
[2016-06-21 18:01] LABS: Glucose,Whole Blood 263 mg/dL (75-99)
[2016-06-21] MEDS: LORazepam 0.5 MG TAB PO PRN (18:33)
[2016-06-21 20:26] LABS: Glucose,Whole Blood 258 mg/dL (75-99)
[2016-06-21] MEDS: LATANOPROST 0.005% OPHTH DROPS 2.5 ML BTL BOTH EYES SCH (21:37)
[2016-06-21] MEDS: ATORVASTATIN 80 MG TAB PO SCH (21:37)
[2016-06-21] MEDS: QUEtiapine 200 MG TAB PO SCH (22:23)
[2016-06-22 06:13] LABS: Glucose,Whole Blood 317 mg/dL (75-99)
[2016-06-22] MEDS: INSULIN LISPRO (humaLOG) 300 UNIT/3 ML VIAL SQ SCH ×8 (08:31→21:46)
[2016-06-22] MEDS: FAMOTIDINE 20 MG TAB PO SCH ×2 (08:32→16:20)
[2016-06-22] MEDS: TIMOLOL 0.5% OPHTH DROPS 5 ML BTL BOTH EYES SCH (08:35)
[2016-06-22] MEDS: INSULIN GLARGINE 100 UNIT/ML 10 ML VIAL SQ SCH (08:38)
[2016-06-22] MEDS: METOCLOPRAMIDE 10 MG TAB PO SCH ×4 (08:40→21:58)
[2016-06-22] MEDS: METOPROLOL TARTRATE 50 MG TAB PO SCH ×2 (08:41→21:58)
[2016-06-22] MEDS: PANTOPRAZOLE 40 MG TABLET PO SCH ×2 (08:41→16:20)
[2016-06-22] MEDS: LISINOPRIL 20 MG TAB PO SCH (08:41)
[2016-06-22] MEDS: SERTRALINE 100 MG TAB PO SCH (08:42)
[2016-06-22] MEDS: QUEtiapine 200 MG TAB PO SCH ×2 (08:43→21:58)
[2016-06-22 12:33] LABS: Glucose,Whole Blood 231 mg/dL (75-99)
--- NOTE | 2016-06-22 13:06 | P.PN ---
Progress Note - Text LINICAL PROBLEMS: Insulin-dependent diabetes mellitus, visual impairment, unspecified psychotic disorder, rule out bipolar disorder depressed with psychotic features, rule out major depressive disorder depressed with psychotic features, rule out schizoaffective disorder 24 HOUR EVENTS: He is posed no management problem and displayed no episodes of behavioral dyscontrol. He continues to isolate in his room refusing to participate in therapeutic groups and activities. He is eating meals and has had no episodes of vomiting. EXAMINATION: He was laying in bed there was reluctant to get up and come to my office for the interview. He appeared guarded and suspicious. He denied problems or concerns other than wishing to be discharged. He denied feeling "paranoid" (the term he prefers to use when describing the suspiciousness present on admission to the hospital). He was reluctant to talk about psychotic symptoms. He replied "yes" when I asked him if he continues to hear people talk. He replies "no" when I ask him the usual questions about auditory hallucinations e.g., hearing "voices" or "hearing things other people don't hear." He did not volunteer information about paranoid beliefs or thoughts. PERTINENT DATA: He is POC glucose last 24 hours ranged from 137-267. He received a total of 13 units of Humalog coverage yesterday. The social media specialist spoke with his father who visited yesterday evening. His father stated that he still hearing voices and he is paranoid. His father believes that he has improved "a little bit", he is "talking more" but he is not ready for discharge. He will receive outpatient mental health treatment through [facility] and [facility] ASSESSMENT: He continues to be isolative. He is paranoid and suspicious. He continues to experience auditory hallucinations. PLAN: Continue inpatient hospitalization. Increase Seroquel to 200 mg BID and ontinue to titrate Seroquel according to clinical response and tolerance. Encourage participation in therapeutic groups and activities. Encourage him to leave his room and socialize with peers. Evaluate clinical status response to treatment on a daily basis.
[2016-06-22] MEDS: LORazepam 0.5 MG TAB PO PRN (16:20)
[2016-06-22 16:46] LABS: Glucose,Whole Blood 50 mg/dL (75-99)
[2016-06-22 17:06] LABS: Glucose,Whole Blood 88 mg/dL (75-99)
[2016-06-22 20:01] LABS: Glucose,Whole Blood 48 mg/dL (75-99)
[2016-06-22 20:07] LABS: Glucose,Whole Blood 65 mg/dL (75-99)
[2016-06-22 20:29] LABS: Glucose,Whole Blood 115 mg/dL (75-99)
[2016-06-22] MEDS ORDERED: INSULIN LISPRO (humaLOG) 300 UNIT/3 ML VIAL SQ STA (21:46)
[2016-06-22] MEDS: LATANOPROST 0.005% OPHTH DROPS 2.5 ML BTL BOTH EYES SCH (21:59)
[2016-06-22] MEDS: GABAPENTIN 400 MG CAP PO PRN (21:59)
[2016-06-22] MEDS: ATORVASTATIN 80 MG TAB PO SCH (21:59)
[2016-06-22 22:53] LABS: Glucose,Whole Blood 199 mg/dL (75-99)
[2016-06-23 06:15] LABS: Glucose,Whole Blood 296 mg/dL (75-99)
[2016-06-23] MEDS ORDERED: INSULIN LISPRO (humaLOG) 300 UNIT/3 ML VIAL SQ PRN (07:30)
[2016-06-23] MEDS: FAMOTIDINE 20 MG TAB PO SCH ×2 (08:29→18:02)
[2016-06-23] MEDS: GABAPENTIN 400 MG CAP PO PRN (08:29)
[2016-06-23] MEDS: PANTOPRAZOLE 40 MG TABLET PO SCH ×2 (08:30→18:11)
[2016-06-23] MEDS: METOPROLOL TARTRATE 50 MG TAB PO SCH ×2 (08:30→20:10)
[2016-06-23] MEDS: LISINOPRIL 20 MG TAB PO SCH (08:30)
[2016-06-23] MEDS: METOCLOPRAMIDE 10 MG TAB PO SCH ×4 (08:30→20:09)
[2016-06-23] MEDS: SERTRALINE 100 MG TAB PO SCH (08:31)
[2016-06-23] MEDS: QUEtiapine 200 MG TAB PO SCH ×2 (08:31→20:09)
[2016-06-23] MEDS: TIMOLOL 0.5% OPHTH DROPS 5 ML BTL BOTH EYES SCH (08:32)
[2016-06-23] MEDS: INSULIN LISPRO (humaLOG) 300 UNIT/3 ML VIAL SQ SCH ×10 (08:32→20:39)
[2016-06-23] MEDS: INSULIN GLARGINE 100 UNIT/ML 10 ML VIAL SQ SCH (08:41)
[2016-06-23 12:36] LABS: Glucose,Whole Blood 226 mg/dL (75-99)
--- NOTE | 2016-06-23 14:07 | P.PN ---
Progress Note - Text CLINICAL PROBLEMS: Insulin-dependent diabetes mellitus, visual impairment, unspecified psychotic disorder, rule out bipolar disorder depressed with psychotic features, rule out major depressive disorder depressed with psychotic features, rule out schizoaffective disorder 24 HOUR EVENTS: He posed no management problem and displayed no episodes of behavioral dyscontrol. He continues to isolate in his room refusing to participate in therapeutic groups and activities. He is eating meals and has had no episodes of vomiting. EXAMINATION: He was sitting on the side of his bed. He appeared guarded and suspicious. He denied problems or concerns. In response to questions about paranoia he replied "a little bit" and would not elaborate on this answer. He replied "yes" when I asked him if he continues to hear people talk. Again, he would not elaborate on his auditory experiences. In prior interviews he denied that he is experiencing auditory hallucinations e.g., hearing "voices" or "hearing things other people don't hear." He did not volunteer information about paranoid beliefs or thoughts. PERTINENT DATA: He is POC glucose last 24 hours ranged from 48-296. He received a total of 8 units of Humalog coverage yesterday. ASSESSMENT: He continues to be isolative avoiding therapeutic groups or activities or social contact with staff or peers. I suspect the isolation may be more related to paranoia and his visual disability. I suspect that he is continuing to experience auditory hallucinations. PLAN: Continue inpatient hospitalization. Continue Seroquel to 200 mg BID and continue to titrate Seroquel according to clinical response and tolerance. Encourage participation in therapeutic groups and activities. Encourage him to leave his room and socialize with peers. Evaluate clinical status response to treatment on a daily basis.
--- NOTE | 2016-06-23 15:22 | CT ---
EXAMINATION TYPE: CT brain wo con DATE OF EXAM: 06/23/2016 3:17 PM COMPARISON: NONE HISTORY: 30 year-old male with headache, rule out bleed TECHNIQUE: Examination was done in axial plane without intravenous contrast. Coronal and sagittal r econstructions performed. CT DLP: 892.10 mGycm Automated exposure control for dose reduction was used. FINDINGS: There is no evidence of acute intracranial hemorrhage, acute ischemic changes, mass, mass-effect, or extra-axial fluid collection. There is no effacement of cerebral sulci or basal subarachnoid cister ns. There is no hydrocephalus. There is no midline shift. Gibbons-white matter distinction is preserv ed. There is mild cortical and central cerebral volume loss. Secondary mild prominence of the ventricular system. Partially empty sella is noted. Prosthetic left globe. Intraorbital device on the right possibly for glaucoma. Visualized paranasal sinuses and mastoid air cells are clear. IMPRESSION: Mild generalized atrophy. No acute intracranial abnormality seen.
[2016-06-23] MEDS: ARTIFICIAL TEARS-HYPROMELLOSE DROPS 15 ML BTL BOTH EYES PRN (15:42)
[2016-06-23] MEDS: LORazepam 0.5 MG TAB PO PRN (15:42)
[2016-06-23 17:19] LABS: Glucose,Whole Blood 130 mg/dL (75-99)
[2016-06-23 19:24] LABS: Glucose,Whole Blood 104 mg/dL (75-99)
[2016-06-23 20:09] LABS: Glucose,Whole Blood 117 mg/dL (75-99)
[2016-06-23] MEDS: ATORVASTATIN 80 MG TAB PO SCH (20:09)
[2016-06-23] MEDS: LATANOPROST 0.005% OPHTH DROPS 2.5 ML BTL BOTH EYES SCH (20:14)
[2016-06-24 06:25] LABS: Glucose,Whole Blood 432 mg/dL (75-99)
[2016-06-24] MEDS: FAMOTIDINE 20 MG TAB PO SCH ×2 (08:08→18:07)
[2016-06-24] MEDS: QUEtiapine 200 MG TAB PO SCH (08:09)
[2016-06-24] MEDS: SERTRALINE 100 MG TAB PO SCH (08:09)
[2016-06-24] MEDS: LISINOPRIL 20 MG TAB PO SCH (08:09)
[2016-06-24] MEDS: METOCLOPRAMIDE 10 MG TAB PO SCH ×4 (08:09→20:49)
[2016-06-24] MEDS: PANTOPRAZOLE 40 MG TABLET PO SCH ×2 (08:09→18:08)
[2016-06-24] MEDS: METOPROLOL TARTRATE 50 MG TAB PO SCH ×2 (08:09→20:49)
[2016-06-24] MEDS: INSULIN LISPRO (humaLOG) 300 UNIT/3 ML VIAL SQ SCH ×8 (08:10→21:31)
[2016-06-24] MEDS: INSULIN GLARGINE 100 UNIT/ML 10 ML VIAL SQ SCH (08:15)
[2016-06-24] MEDS: TIMOLOL 0.5% OPHTH DROPS 5 ML BTL BOTH EYES SCH (09:55)
[2016-06-24 12:21] LABS: Glucose,Whole Blood 225 mg/dL (75-99)
[2016-06-24] MEDS: LORazepam 0.5 MG TAB PO PRN (12:27)
[2016-06-24 15:05] LABS: Glucose,Whole Blood 214 mg/dL (75-99)
--- NOTE | 2016-06-24 15:33 | P.PN ---
Progress Note - Text SUBJECTIVE: I reviewed the medical record and interviewed Mr. Slater. He is a 30-year-old male who has insulin-dependent diabetes mellitus visual impairment. He presented to unit a new onset of psychotic symptoms. He denied problems or concerns. He would not voluntarily talk about his paranoia or auditory hallucinations. When I asked him specifically about his symptoms he gave an ambivalent answer. On one hand he replied "sometimes" on the other he said "not really". However, he did complain that he experiences "voices" were commonly at night. He denies side effects to current medications. OBJECTIVE: He presented as a casually groomed 30-year-old male who is laying In bed. He looked at my direction and appeared to attend to the interview. He had a blunted facial expression. He showed psychomotor retardation but no abnormal involuntary movements. Her speech was not spontaneous and had decreased rhythm and volume. His affect was blunted but stable and appropriate. He denied suicidal ideation or wishes. He denied feelings of hopelessness or helplessness. He did not express phobias, ideas reference, paranoid ideation or delusional thinking. His thinking was concrete but his associations appeared coherent and logical. He denied current auditory hallucinations and did not appear to be responding to internal stimuli. He continues to avoid participation in therapeutic groups and activities. He slept 6 hours last night. His POC glucose ranged from 104-296 over the last 24 hours. He received only 5 mg sliding scale Humalog yesterday. ASSESSMENT: He appears less suspicious and paranoid admission. He continues to experience auditory hallucinations. PLAN: Continue inpatient hospitalization. Continue assault precautions with 15 minute checks. Continue Zoloft 100 mg daily and melatonin 5 mg at bedtime when necessary. Increase Seroquel to 20 mg a.m. and 3 mg at bedtime. Monitor blood sugar as recommended by [employer] consultant. Continue to encourage participation in therapeutic groups and activities. Evaluate clinical status response to treatment daily basis.
[2016-06-24 17:42] LABS: Glucose,Whole Blood 119 mg/dL (75-99)
[2016-06-24 20:08] LABS: Glucose,Whole Blood 216 mg/dL (75-99)
[2016-06-24] MEDS: LATANOPROST 0.005% OPHTH DROPS 2.5 ML BTL BOTH EYES SCH (20:49)
[2016-06-24] MEDS: ATORVASTATIN 80 MG TAB PO SCH (20:49)
[2016-06-24] MEDS: QUEtiapine 100 MG TAB PO SCH (20:49)
[2016-06-25 06:56] LABS: Glucose,Whole Blood 229 mg/dL (75-99)
[2016-06-25] MEDS: QUEtiapine 200 MG TAB PO SCH (08:36)
[2016-06-25] MEDS: PANTOPRAZOLE 40 MG TABLET PO SCH ×2 (08:36→17:33)
[2016-06-25] MEDS: LISINOPRIL 20 MG TAB PO SCH (08:36)
[2016-06-25] MEDS: METOPROLOL TARTRATE 50 MG TAB PO SCH ×2 (08:36→20:06)
[2016-06-25] MEDS: FAMOTIDINE 20 MG TAB PO SCH ×2 (08:36→17:33)
[2016-06-25] MEDS: METOCLOPRAMIDE 10 MG TAB PO SCH ×2 (08:36→12:14)
[2016-06-25] MEDS: TIMOLOL 0.5% OPHTH DROPS 5 ML BTL BOTH EYES SCH (08:36)
[2016-06-25] MEDS: SERTRALINE 100 MG TAB PO SCH (08:36)
[2016-06-25] MEDS: INSULIN LISPRO (humaLOG) 300 UNIT/3 ML VIAL SQ SCH ×8 (08:37→20:39)
[2016-06-25] MEDS: INSULIN GLARGINE 100 UNIT/ML 10 ML VIAL SQ SCH (08:41)
--- NOTE | 2016-06-25 09:50 | P.PN ---
Progress Note - Text SUBJECTIVE: He is a 30-year-old male who has history of insulin- dependent diabetes mellitus and visual impairment. He presented to unit involuntarily with a history of new-onset of psychotic symptoms. He deferred the probate hearing. He denied problems or concerns. He denied problem with sleep last night. He denied experiencing auditory hallucinations. When I inquired about paranoid symptoms he stated that he has "some concerns" but would not talk about his "concerns". He denied side effects increased dose of Seroquel. He would not leave his room to attend group therapy. OBJECTIVE: He presented as a slightly disheveled appearing 30-year-old male laying comfortably in bed. He sat up partially for the interview. He looked at my direction and appeared to attend to the interview. He had multiple tattoos but no physical abnormalities. He had a flat facial expression. He showed psychomotor retardation but no abnormal involuntary movements. Her speech was not spontaneous and had decreased rate, rhythm and volume. He mumbled responses to questions. He volunteered little information and provided 1 or 2 word responses to questions. His affect was flat and unreactive. He did not express phobias, ideas reference or paranoid ideation. His thinking was concrete but his associations appeared coherent. He denied current auditory hallucinations and did not appear to be responding to internal stimuli. He continues to refuse to attend therapeutic groups and activities. He slept 6 hours last night. His POC blood sugars range from 119-432 over the last 24 hours. Received a total of 14 units of Humalog per sliding scale. ASSESSMENT: He continues to be isolative and refuses to participate in therapeutic groups and activities. He's been compliant with prescribed medication and has posed no management problem or displayed no episodes of behavioral dyscontrol. He is shown no behavior suggestive of acute psychotic symptoms. His isolation may be related to his paranoia. PLAN: Continue inpatient hospitalization. Continue suicide precautions with 15 minute checks. Continue Zoloft 100 mg daily and melatonin 5 mg at bedtime when necessary. Continue Seroquel to 200 mg a.m. and 300 mg at bedtime. Monitor blood sugar as recommended by senior clinical consultant. Continue to encourage participation in therapeutic groups and activities. Evaluate clinical status response to treatment daily basis.
[2016-06-25] MEDS: LORazepam 0.5 MG TAB PO PRN (12:17)
[2016-06-25 12:36] LABS: Glucose,Whole Blood 274 mg/dL (75-99)
[2016-06-25 15:01] LABS: Glucose,Whole Blood 193 mg/dL (75-99)
[2016-06-25 17:35] LABS: Glucose,Whole Blood 100 mg/dL (75-99)
[2016-06-25 20:05] LABS: Glucose,Whole Blood 115 mg/dL (75-99)
[2016-06-25] MEDS: ATORVASTATIN 80 MG TAB PO SCH (20:06)
[2016-06-25] MEDS: QUEtiapine 100 MG TAB PO SCH (20:06)
[2016-06-25] MEDS: LATANOPROST 0.005% OPHTH DROPS 2.5 ML BTL BOTH EYES SCH (20:08)
[2016-06-25 22:41] LABS: Glucose,Whole Blood 37 mg/dL (75-99)
[2016-06-25 22:41] LABS: Glucose,Whole Blood 36 mg/dL (75-99)
[2016-06-25 23:20] LABS: Glucose,Whole Blood 189 mg/dL (75-99)
[2016-06-26 00:12] LABS: Glucose,Whole Blood 238 mg/dL (75-99)
[2016-06-26 06:41] LABS: Glucose,Whole Blood 395 mg/dL (75-99)
[2016-06-26] MEDS: INSULIN LISPRO (humaLOG) 300 UNIT/3 ML VIAL SQ SCH ×6 (08:29→20:28)
[2016-06-26] MEDS: INSULIN GLARGINE 100 UNIT/ML 10 ML VIAL SQ SCH (08:33)
[2016-06-26] MEDS: QUEtiapine 200 MG TAB PO SCH (08:36)
[2016-06-26] MEDS: SERTRALINE 100 MG TAB PO SCH (08:36)
[2016-06-26] MEDS: LISINOPRIL 20 MG TAB PO SCH (08:37)
[2016-06-26] MEDS: FAMOTIDINE 20 MG TAB PO SCH ×2 (08:37→18:16)
[2016-06-26] MEDS: PANTOPRAZOLE 40 MG TABLET PO SCH ×2 (08:37→18:16)
[2016-06-26] MEDS: METOPROLOL TARTRATE 50 MG TAB PO SCH ×2 (08:37→20:27)
[2016-06-26] MEDS: TIMOLOL 0.5% OPHTH DROPS 5 ML BTL BOTH EYES SCH (08:38)
[2016-06-26] MEDS: LORazepam 0.5 MG TAB PO PRN (09:57)
[2016-06-26 12:43] LABS: Glucose,Whole Blood 238 mg/dL (75-99)
--- NOTE | 2016-06-26 13:24 | P.PN ---
Progress Note - Text SUBJECTIVE: He is a 30-year-old male who has history of insulin- dependent diabetes mellitus and visual impairment. He presented to unit involuntarily with a history of new-onset of psychotic symptoms. He deferred the probate hearing. He inquired about discharge asking when he can go home. In response to questions about auditory hallucinations and paranoia he replied that he has "some concerns" but would not discuss his experiences or his concerns. We talked about the issues that led to his admission. He replied that he had difficulty going to the bathroom ... "You know, the things that my dad was telling you." He denied side effects increased dose of Seroquel. OBJECTIVE: He presented as a slightly disheveled appearing 30-year-old male laying comfortably in bed. He sat up for the interview. He looked at my direction and attended to the interview. He had a flat facial expression. He showed psychomotor retardation but no abnormal involuntary movements. He was more talkative than on prior encounters although she volunteered little information and gave brief and cryptic responses to questions. His affect was flat and unreactive. He did not express phobias, ideas reference or paranoid ideation. His thinking was concrete but his associations appeared coherent. He denied current auditory hallucinations and did not appear to be responding to internal stimuli. He briefly attended 1 group yesterday. He slept 6 hours last night. His POC blood sugars range from 36-395 over the last 24 hours. Received a total of 7 units of Humalog per sliding scale (in addition to the regular dosing of Humalog and Lantus). ASSESSMENT: He continues to be isolative and reluctant to participate in therapeutic groups and activities. He has been compliant with prescribed medication and has posed no management problem or displayed no episodes of behavioral dyscontrol. He is shown no behavior suggestive of acute psychotic symptoms. He appears more willing to engage in conversation and discuss his concerns. PLAN: Continue inpatient hospitalization. Continue suicide precautions with 15 minute checks. Continue Zoloft 100 mg daily and melatonin 5 mg at bedtime when necessary. Increase Seroquel 300 mg BID. Monitor blood sugar as recommended by cost consultant. Continue to encourage participation in therapeutic groups and activities. Evaluate clinical status response to treatment daily basis.
[2016-06-26 15:59] LABS: Glucose,Whole Blood 70 mg/dL (75-99)
[2016-06-26 16:28] LABS: Glucose,Whole Blood 80 mg/dL (75-99)
[2016-06-26 17:58] LABS: Glucose,Whole Blood 157 mg/dL (75-99)
[2016-06-26] MEDS: ACETAMINOPHEN TAB 325 MG TAB PO PRN (18:16)
[2016-06-26 20:07] LABS: Glucose,Whole Blood 219 mg/dL (75-99)
[2016-06-26] MEDS: ATORVASTATIN 80 MG TAB PO SCH (20:26)
[2016-06-26] MEDS: LATANOPROST 0.005% OPHTH DROPS 2.5 ML BTL BOTH EYES SCH (20:28)
[2016-06-26] MEDS: QUEtiapine 100 MG TAB PO SCH (21:04)
[2016-06-27 05:58] LABS: Glucose,Whole Blood 378 mg/dL (75-99)
[2016-06-27] MEDS: LISINOPRIL 20 MG TAB PO SCH (08:58)
[2016-06-27] MEDS: FAMOTIDINE 20 MG TAB PO SCH ×2 (08:58→16:31)
[2016-06-27] MEDS: PANTOPRAZOLE 40 MG TABLET PO SCH ×2 (08:58→16:31)
[2016-06-27] MEDS: TIMOLOL 0.5% OPHTH DROPS 5 ML BTL BOTH EYES SCH (08:58)
[2016-06-27] MEDS: METOPROLOL TARTRATE 50 MG TAB PO SCH ×2 (08:59→20:33)
[2016-06-27] MEDS: SERTRALINE 100 MG TAB PO SCH (08:59)
[2016-06-27] MEDS: INSULIN LISPRO (humaLOG) 300 UNIT/3 ML VIAL SQ SCH ×4 (08:59→20:23)
[2016-06-27] MEDS: QUEtiapine 100 MG TAB PO SCH ×2 (08:59→20:33)
[2016-06-27] MEDS: INSULIN GLARGINE 100 UNIT/ML 10 ML VIAL SQ SCH (09:04)
--- NOTE | 2016-06-27 12:40 | P.PN ---
Progress Note - Text SUBJECTIVE: He is a 30-year-old male who has history of insulin- dependent diabetes mellitus and visual impairment. He presented to unit involuntarily with a history of new-onset of psychotic symptoms. He deferred the probate hearing. He came to my office for the interview. He was without complaint or concerns. He was difficult to engage in a conversation. His answers were vague and evasive. OBJECTIVE: He presented as a slightly disheveled appearing 30-year-old who was pleasant on approach. He looked at my direction and attended to the interview. He had a blunted facial expression. He showed psychomotor retardation but no abnormal involuntary movements. He was more talkative than on prior encounters although she volunteered little information and gave brief and cryptic responses to questions. His affect was blunted but slightly reactive. He did not express phobias, ideas reference or paranoid ideation. His thinking was concrete but his associations appeared coherent. He denied current auditory hallucinations and did not appear to be responding to internal stimuli. He did not attend therapeutic group or activity yesterday. He slept 6 hours last night. His POC blood sugars range from 70-395 over the last 24 hours. Received a total of 14 units of Humalog per sliding scale (in addition to the regular dosing of Humalog and Lantus). ASSESSMENT: He continues to be isolative and reluctant to participate in therapeutic groups and activities. He has been compliant with prescribed medication and has posed no management problem or displayed no episodes of behavioral dyscontrol. He is shown no behavior suggestive of acute psychotic symptoms. Overall, he appears mildly mentally ill and moderately improved from admission. PLAN: Continue inpatient hospitalization. Continue suicide precautions with 15 minute checks. Continue Zoloft 100 mg daily and melatonin 5 mg at bedtime when necessary. Continue Seroquel 300 mg BID. Monitor blood glucose as recommended by otm consultant. Plan for discharge this week with follow-[facility] at [facility]. Continue to encourage participation in therapeutic groups and activities. Evaluate clinical status response to treatment daily basis.
[2016-06-27 13:13] LABS: Glucose,Whole Blood 323 mg/dL (75-99)
[2016-06-27] MEDS: LORazepam 0.5 MG TAB PO PRN (13:16)
[2016-06-27 17:32] LABS: Glucose,Whole Blood 236 mg/dL (75-99)
[2016-06-27 20:16] LABS: Glucose,Whole Blood 241 mg/dL (75-99)
[2016-06-27] MEDS: ATORVASTATIN 80 MG TAB PO SCH (20:32)
[2016-06-27] MEDS: LATANOPROST 0.005% OPHTH DROPS 2.5 ML BTL BOTH EYES SCH (20:32)
[2016-06-27 21:38] LABS: Glucose,Whole Blood 234 mg/dL (75-99)
[2016-06-27 21:57] VITALS: RESP 18
[2016-06-28 06:09] LABS: Glucose,Whole Blood 286 mg/dL (75-99)
[2016-06-28 06:52] VITALS: BP 117/61; PULSE 80; TEMP 97.8
[2016-06-28] MEDS: FAMOTIDINE 20 MG TAB PO SCH (08:27)
[2016-06-28] MEDS: INSULIN LISPRO (humaLOG) 300 UNIT/3 ML VIAL SQ SCH ×2 (08:27→13:17)
[2016-06-28] MEDS: PANTOPRAZOLE 40 MG TABLET PO SCH (08:27)
[2016-06-28] MEDS: SERTRALINE 100 MG TAB PO SCH (08:46)
[2016-06-28] MEDS: METOPROLOL TARTRATE 50 MG TAB PO SCH (08:46)
[2016-06-28] MEDS: QUEtiapine 100 MG TAB PO SCH (08:46)
[2016-06-28] MEDS: GABAPENTIN 400 MG CAP PO PRN (08:46)
[2016-06-28] MEDS: LISINOPRIL 20 MG TAB PO SCH (08:47)
[2016-06-28] MEDS: TIMOLOL 0.5% OPHTH DROPS 5 ML BTL BOTH EYES SCH (08:48)
[2016-06-28] MEDS: INSULIN GLARGINE 100 UNIT/ML 10 ML VIAL SQ SCH (08:52)
[2016-06-28 08:59] VITALS: BMI 25.9
[2016-06-28 12:44] LABS: Glucose,Whole Blood 271 mg/dL (75-99)
--- NOTE | 2016-06-28 13:23 | P.DS ---
Providers Date of admission: 06/14/16 16:18 Attending physician: Wisam Davey MD Consults: 06/14/16 16:49 Consult Physician Routine Consulting Provider: Wisam Vickers Consult Reason/Comments: Medical Management Do you want consulting provider notified?: Yes 06/26/16 09:07 Consult Physician Routine Consulting Provider: Wisam Vickers Consult Reason/Comments: reconsult for diabetes management Do you want consulting provider notified?: Yes 06/26/16 10:08 Consult Physician Routine Consulting Provider: Saadia Mendoza Consult Reason/Comments: diabetes management Do you want consulting provider notified?: Yes Primary care physician: Stated None - Discharge Diagnosis(es) (1) Psychosis Current Visit: No Status: Chronic Priority: Medium (2) Type 1 diabetes mellitus Current Visit: No Status: Chronic Priority: High Hospital Course: Mr. Slater is a 30-year-old legally blind male We admitted him to the psychiatric unit involuntarily on 06/07/2016 with diagnosis of psychosis NOS. Rule out was on the psychiatric unit he developed acute GI bleed and transferred to ICU. He was discharged from stepdown unit and returned to psychiatry and 06/14/2016. I met with him on the medicine unit and spoke with his father. His father remains concerns about his paranoia and functioning at home. As in the initial assessment, Daniel provided little information. He denies problems or concerns. He was reluctant to talk about the circumstances that led to the admission to the psychiatric unit. When I inquired about the paranoia he replied "it's difficult to explain." However, he denied feeling paranoid or frightened on the psychiatric unit. Response to questions about depression and he replied "a little bit". He denied feeling anxious, tense and nervous. He denied auditory or visual hallucinations, ideas reference, thought insertion, thought broadcasting or thought control. According to his father he has a history of depression and has received mental health treatment since he was approximately 13 years old. He had a psychiatrist at [facility] in [facility]. His psychotropic medications included Tegretol 200 mg twice a day, sertraline 100 mg daily and Effexor 150 mg twice a day. His father described a marked change his behavior over the 2-3 weeks prior to his first admission to this unit. He stated that Daniel became paranoid. He believed that people were outside the house and on the roof of the house spying on him. His level of paranoia was so extreme that his father covered the álvaro light in his room with cardboard to block people from potentially looking to the álvaro light. However, Daniel continue believe that people were spying and video recording him while he was in the house. He became so paranoid about his privacy that he refused to go the bathroom and began to soiled himself. He believed that people in the local town were coming to "get him". About 2 weeks prior to admission he took a shovel from the barn "to teach the children across the road a lesson". He was paranoid about their behavior. His father took to shovel away to prevent him from harming the children. Prior to admission he called his parents while they were away from the house acutely agitated. He alleged that people have broken into the house. When they came home he had locked himself in a room with knives. They have since locked away the knives and guns in the house. His father has observed him talking to people who were not present. His parents have become so concerned about his paranoia and possible danger to others that they not leave him home alone unsupervised. His father would not take him home from the medicine unit until we receive psychiatric treatment. We proceeded with involuntary hospitalization process and submitted the Petition and supporting Clinical Certificate as to probate Court. He has a probate hearing for involuntary hospitalization on 06/20/2016. He has a history of insulin-dependent diabetes mellitus, visual impairment and gastroparesis. He was admitted to psychiatry on 06/07/2016 and transferred to the ICU on 06/09/2016 with a diagnosis of acute GI bleed. He was transferred from ICU on 06/12/2016 and discharged back to psychiatry on 06/14/2016. His discharge diagnoses included acute diabetic ketoacidosis resolved, severe intense nausea and vomiting with a history of diabetic gastroparesis, visual impairment, an episode of coffee-ground emesis secondary to gastroparesis, type 1 diabetes uncontrolled and a component of starvation ketoacidosis. His POC glucose has ranged from 226-355 since re-admission. His RBCs this morning was 4.01, hemoglobin 10.0 and hematocrit 32.3. MCH was 24.9 and MCHC was 30.9. Sodium was low at 136. Phosphorus was elevated at 5.0 and magnesium was decreased at 1.5. We admitted him on transfer from the medicine unit where we referred him for the treatment of uncontrolled diabetes, gastroparesis and nausea and vomiting. We provided a biopsychosocial assessment. The computer consultant completed the initial physical exam and medical history and diagnosed acute diabetic ketoacidosis, type 1 diabetes uncontrolled, here history of gastroparesis and legally blind. We continued the plan to taper it and discontinue Tegretol and Effexor. With his consent we began Seroquel for treatment of psychotic symptoms and titrated dose to 600 mg per day in divided doses. We consulted medicine several times because of the difficulty we had and controlling his serum glucose. The computer consultant physician recommended a referral to an generation technologist. He withdrew to his room during much of the hospital stay. Initially he would not leave his room for meals. We were able to transition him from meals in his room, to meals in the community room then meals in the cafeteria with other patients. She did not participate in therapeutic groups and activities despite repeated requests from the therapeutic staff. He gave several reasons for not attending groups including that he felt uncomfortable in groups because of his visual disability. He posed no management problem and displayed no episodes of behavioral dyscontrol or self-harm. His sleep improved and he denied that he was experiencing auditory or visual hallucinations. He denied that he feels as though other people were trying to harm or hurt him. He complained of sedation from the Seroquel but denied that to sedation and interfered with his ability to function. He agreed to continue outpatient mental health services through [facility]. At the time of discharge he denied thoughts of or suicide. He did not appear paranoid or psychotic. Patient Condition at Discharge: Stable Plan - Discharge Summary New Discharge Prescriptions: Insulin Glargine [Lantus] 42 unit SQ DAILY #1 vial LORazepam [Ativan] 0.5 mg PO BID PRN #60 tab PRN Reason: Agitation Or Acute Anxiety Melatonin 5 mg PO HS PRN #30 tab PRN Reason: sleep QUEtiapine FUMARATE [SEROquel] 300 mg PO BID #60 tab Discharge Medication List Atorvastatin [Lipitor] 80 mg PO HS 06/04/16 [History] Gabapentin [Neurontin] 800 mg PO TID PRN 06/04/16 [History] Latanoprost [Xalatan 0.005%] 1 drop BOTH EYES HS 06/04/16 [History] Lisinopril [Zestril] 20 mg PO DAILY 06/04/16 [History] Metoprolol Tartrate [Lopressor] 100 - 150 mg PO BID 06/04/16 [History] Ranitidine HCl [Zantac] 150 mg PO AC-BID 06/04/16 [History] Sertraline [Zoloft] 100 mg PO DAILY 06/04/16 [History] Timolol 0.5% Ophth Soln [Timoptic 0.5% Ophth Soln] 1 drop BOTH EYES DAILY [History] cloNIDine 0.1 MG/24HR PATCH [Catapres-TTS] 1 patch TRANSDERM WE 06/04/16 [ History] INSULIN LISPRO (humaLOG) [humaLOG (formulary)] 10 unit SQ ACHS vial 06/14/16 [ Rx] Pantoprazole [Protonix] 40 mg PO AC-BID tablet. 06/14/16 [Rx] Insulin Glargine [Lantus] 42 unit SQ DAILY #1 vial 06/28/16 [Rx] LORazepam [Ativan] 0.5 mg PO BID PRN #60 tab 06/28/16 [Rx] Melatonin 5 mg PO HS PRN #30 tab 06/28/16 [Rx] QUEtiapine FUMARATE [SEROquel] 300 mg PO BID #60 tab 06/28/16 [Rx] Follow up Appointment(s)/Referral(s): [facility] [place] [Outside] - 07/05/16 1:00 pm (07/05/16 at 1:00 w [place]) [facility] [Outside] - 07/17/16 1:00 pm (Psych eval 07/17/16 at 1:00pm w/ Dr. Tafoya.) Saadia Mendoza MD [STAFF PHYSICIAN] - 1 Week (follow up with this physician, call the office on the she will be back from vacation. ) Patient Instructions/Handouts: Schizophrenia (DC) Activity/Diet/Wound Care/Special Instructions: No alcohol or street drugs, activity as tolerated, diet as tolerated, remove firearms from home. Follow up with outpatient provider as set up at time of discharge, follow up with PCP in one to two days. Call crisis line or [phone] if having thoughts of hurting yourself or anyone else. Discharge Disposition: HOME SELF-CARE
== END 2016-06-28 14:20 | disposition home or self-care (01) | DRG 885 ==
LOC: 3MHU 16:18
PROVIDERS: ADMIT Psychiatry & Neurology Psychiatry; ATTEND Psychiatry & Neurology Psychiatry
DX: F29 Unspecified psychosis not due to a substance or known physiological condition (principal); K31.84 Gastroparesis; E10.43 Type 1 diabetes mellitus with diabetic autonomic (poly)neuropathy; R45.850 Homicidal ideations; F17.200 Nicotine dependence, unspecified, uncomplicated; F41.9 Anxiety disorder, unspecified; H40.9 Unspecified glaucoma; H54.8 Legal blindness, as defined in USA; Z79.4 Long term (current) use of insulin; Z79.899 Other long term (current) drug therapy
CPT/HCPCS: 70450; 80048; 81003; 82947; 83735; 84100; 85025; 93005

== ENCOUNTER 2016-07-03 15:07 | Inpatient (IN) | payer MEDICAID, OTHER ==
--- NOTE | 2016-07-03 15:41 | ED ---
General Adult HPI - General Chief complaint: Psychiatric Symptoms Stated complaint: Mental Health Time Seen by Provider: 07/03/16 15:18 Source: patient, family, RN notes reviewed Mode of arrival: ambulatory Limitations: physical limitation - History of Present Illness Initial comments: Patient 30-year-old male who presents emergency room today with a chief complaint of increased hallucinations. Parents at bedside stating that his had slept the last 24 hours. States he was recently released from the hospital. States it was medication adjustment. States he does not seem to be doing well. Still having paranoid thoughts. States there was thoughts that he was going to be arrested by the police today. Patient denies any other complaints currently. Patient denies any recent fever, chills, shortness of breath, chest pain, back pain, abdominal pain, nausea or vomiting, numbness or tingling, dysuria or hematuria, constipation or diarrhea, headaches or visual changes, or any other complaints. - Related Data Home Medications Medication Instructions Recorded Confirmed Atorvastatin [Lipitor] 80 mg PO HS 06/04/16 07/03/16 Gabapentin [Neurontin] 800 mg PO TID PRN 06/04/16 07/03/16 Latanoprost [Xalatan 0.005%] 1 drop BOTH EYES HS 06/04/16 07/03/16 Lisinopril [Zestril] 20 mg PO DAILY 06/04/16 07/03/16 Metoprolol Tartrate [Lopressor] 150 mg PO BID 06/04/16 07/03/16 Ranitidine HCl [Zantac] 150 mg PO AC-BID 06/04/16 07/03/16 Sertraline [Zoloft] 100 mg PO HS 06/04/16 07/03/16 Timolol 0.5% Ophth Soln [Timoptic 1 drop LEFT EYE BID 06/04/16 07/03/16 0.5% Ophth Soln] cloNIDine 0.1 MG/24HR PATCH 1 patch TRANSDERM WE 06/04/16 07/03/16 [Catapres-TTS] Clindamycin Topical Soln 1 applic TOPICAL BID PRN 07/03/16 07/03/16 [Cleocin-T Topical Soln] INSULIN LISPRO (humaLOG) [humaLOG See Protocol SQ AC-TID 07/03/16 07/03/16 (formulary)] Insulin Glargine [Lantus] 42 unit SQ HS 07/03/16 07/03/16 Melatonin 5 mg PO HS PRN 07/03/16 07/03/16 Ondansetron [Zofran] 4 mg PO Q6H PRN 07/03/16 07/03/16 Rizatriptan Benzoate [Maxalt] 10 mg PO BID PRN 07/03/16 07/03/16 Previous Rx's Medication Instructions Recorded Pantoprazole [Protonix] 40 mg PO AC-BID tablet. 06/14/16 LORazepam [Ativan] 0.5 mg PO BID PRN #60 tab 06/28/16 QUEtiapine FUMARATE [SEROquel] 300 mg PO BID #60 tab 06/28/16 Allergies Allergy/AdvReac Type Severity Reaction Status Date / Time adhesive tape Allergy Rash/Hives Verified 07/03/16 16:20 cefazolin Allergy Rash/Hives Verified 07/03/16 16:20 latex Allergy Rash/Hives Verified 07/03/16 16:20 metoclopramide [From Reglan] AdvReac Severe Tardive Verified 07/03/16 16:20 Dyskinesia amoxicillin [From Augmentin] AdvReac Nausea & Verified 07/03/16 16:20 Vomiting & Diarrhea clavulanic acid AdvReac Nausea & Verified 07/03/16 16:20 [From Augmentin] Vomiting & Diarrhea duloxetine [From Cymbalta] AdvReac Hallucinati Verified 07/03/16 16:20 ons pregabalin [From Lyrica] AdvReac Hallucinati Verified 07/03/16 16:20 ons Review of Systems ROS Statement: Those systems with pertinent positive or pertinent negative responses have been documented in the HPI. ROS Other: All systems not noted in ROS Statement are negative. Past Medical History Past Medical History: Diabetes Mellitus Additional Past Medical History / Comment(s): bilateral glaucoma, Tachycardia, diabetic gastropariesis, neuropathy History of Any Multi-Drug Resistant Organisms: None Reported Additional Past Surgical History / Comment(s): eye surgery Past Anesthesia/Blood Transfusion Reactions: No Reported Reaction Past Psychological History: Anxiety, Bipolar, Depression Smoking Status: Current every day smoker Past Alcohol Use History: None Reported Past Drug Use History: None Reported General Exam - General Exam Comments Initial Comments: General: The patient is awake and alert, in no distress, and does not appear acutely ill. Eye: Pupils are equal, round and reactive to light, extra-ocular movements are intact. No nystagmus. There is normal conjunctiva bilaterally. No signs of icterus. Ears, nose, mouth and throat: There are moist mucous membranes and no oral lesions. Neck: The neck is supple, there is no tenderness or JVD. Cardiovascular: There is a regular rate and rhythm. No murmur, rub or gallop is appreciated. Respiratory: Lungs are clear to auscultation, respirations are non-labored, breath sounds are equal. No wheezes, stridor, rales, or rhonchi. Musculoskeletal: Normal ROM, no tenderness. Strength 5/5. Sensation intact. Pulses equal bilaterally 2+. Neurological: A&O x 3. CN II-XII intact, There are no obvious motor or sensory deficits. Coordination appears grossly intact. Speech is normal. Skin: Skin is warm and dry and no rashes or lesions are noted. Psychiatric: Cooperative. Poor eye contact. : Normal rectal tone. No bright red blood per rectum. Limitations: physical limitation Course Vital Signs 07/03/16 07/03/16 15:16 18:00 Temperature 99 F Pulse Rate 119 H 78 Respiratory 18 20 Rate Blood Pressure 100/61 123/56 O2 Sat by Pulse 97 99 Oximetry Medical Decision Making - Medical Decision Making Case discussed in detail with attending physician Dr. Del Rio. .Patient's labs reviewed to show hemoglobin 8.7. Patient's guaiac negative. Denies any recent nausea vomiting. Denies any diarrhea. Denies any signs of blood per rectum. Remaining labs reviewed unremarkable. Patient's glucose mildly elevated is on insulin. May continue on sliding scale. Patient family member does admit that his history of gastroparesis and states he seems to fluctuate with this. At this time patient is medically cleared awaiting psych recommendation. 1952: Psych has seen the patient recommends admission to the hospital. - Lab Data Result diagrams: 07/03/16 16:00 07/03/16 16:00 Lab Results 07/03/16 07/03/16 07/03/16 Range/Units 15:25 15:25 16:00 WBC (3.8-10.6) k/uL RBC (4.30-5.90) m/uL Hgb (13.0-17.5) gm/dL Hct (39.0-53.0) % MCV (80.0-100.0) fL MCH (25.0-35.0) pg MCHC (31.0-37.0) g/dL RDW (11.5-15.5) % Plt Count (150-450) k/uL Neutrophils % % Lymphocytes % % Monocytes % % Eosinophils % % Basophils % % Neutrophils # (1.3-7.7) k/uL Lymphocytes # (1.0-4.8) k/uL Monocytes # (0-1.0) k/uL Eosinophils # (0-0.7) k/uL Basophils # (0-0.2) k/uL Hypochromasia Sodium 140 (137-145) mmol/L Potassium 4.2 (3.5-5.1) mmol/L Chloride 104 (98-107) mmol/L Carbon Dioxide 27 (22-30) mmol/L Anion Gap 9 mmol/L BUN 10 (9-20) mg/dL Creatinine 0.96 (0.66-1.25) mg/dL Est GFR (MDRD) Af Amer >60 (>60 ml/min/1.73 sqM) Est GFR (MDRD) Non-Af >60 (>60 ml/min/1.73 sqM) Glucose 240 H (74-99) mg/dL POC Glucose (mg/dL) (75-99) mg/dL POC Glu Needle Punch Machine Operator Helper ID Calcium 9.2 (8.4-10.2) mg/dL Total Bilirubin 0.3 (0.2-1.3) mg/dL AST 16 L (17-59) U/L ALT 24 (21-72) U/L Alkaline Phosphatase 111 (38-126) U/L Total Protein 6.3 (6.3-8.2) g/dL Albumin 3.7 (3.5-5.0) g/dL Urine Color Colorless Urine Appearance Clear (Clear) Urine pH 5.5 (5.0-8.0) Ur Specific [place] 1.004 (1.001-1.035) Urine Protein Negative (Negative) Urine Glucose (UA) 4+ H (Negative) Urine Ketones Negative (Negative) Urine Blood Negative (Negative) Urine Nitrite Negative (Negative) Urine Bilirubin Negative (Negative) Urine Urobilinogen <2.0 (<2.0) mg/dL Ur Leukocyte Esterase Negative (Negative) Stool Occult Blood (Negative) Urine Opiates Screen Not Detected (NotDetected) Ur Oxycodone Screen Not Detected (NotDetected) Urine Methadone Screen Not Detected (NotDetected) Ur Propoxyphene Screen Not Detected (NotDetected) Ur Barbiturates Screen Not Detected (NotDetected) U Tricyclic Antidepress Detected H (NotDetected) Ur Phencyclidine Scrn Not Detected (NotDetected) Ur Amphetamines Screen Not Detected (NotDetected) U Methamphetamines Scrn Not Detected (NotDetected) U Benzodiazepines Scrn Detected H (NotDetected) Urine Cocaine Screen Not Detected (NotDetected) U Marijuana (THC) Screen Not Detected (NotDetected) Acetone, Qual Negative (Negative) 07/03/16 07/03/16 07/03/16 Range/Units 16:00 18:20 18:34 WBC 6.6 (3.8-10.6) k/uL RBC 3.64 L (4.30-5.90) m/uL Hgb 8.7 L (13.0-17.5) gm/dL Hct 28.4 L (39.0-53.0) % MCV 78.1 L (80.0-100.0) fL MCH 24.0 L (25.0-35.0) pg MCHC 30.8 L (31.0-37.0) g/dL RDW 14.4 (11.5-15.5) % Plt Count 424 (150-450) k/uL Neutrophils % 62 % Lymphocytes % 27 % Monocytes % 6 % Eosinophils % 1 % Basophils % 1 % Neutrophils # 4.1 (1.3-7.7) k/uL Lymphocytes # 1.8 (1.0-4.8) k/uL Monocytes # 0.4 (0-1.0) k/uL Eosinophils # 0.1 (0-0.7) k/uL Basophils # 0.0 (0-0.2) k/uL Hypochromasia Moderate Sodium (137-145) mmol/L Potassium (3.5-5.1) mmol/L Chloride (98-107) mmol/L Carbon Dioxide (22-30) mmol/L Anion Gap mmol/L BUN (9-20) mg/dL Creatinine (0.66-1.25) mg/dL Est GFR (MDRD) Af Amer (>60 ml/min/1.73 sqM) Est GFR (MDRD) Non-Af (>60 ml/min/1.73 sqM) Glucose (74-99) mg/dL POC Glucose (mg/dL) 186 H (75-99) mg/dL POC Glu Needle Punch Machine Operator Helper ID Mary Peterson Calcium (8.4-10.2) mg/dL Total Bilirubin (0.2-1.3) mg/dL AST (17-59) U/L ALT (21-72) U/L Alkaline Phosphatase (38-126) U/L Total Protein (6.3-8.2) g/dL Albumin (3.5-5.0) g/dL Urine Color Urine Appearance (Clear) Urine pH (5.0-8.0) Ur Specific [place] (1.001-1.035) Urine Protein (Negative) Urine Glucose (UA) (Negative) Urine Ketones (Negative) Urine Blood (Negative) Urine Nitrite (Negative) Urine Bilirubin (Negative) Urine Urobilinogen (<2.0) mg/dL Ur Leukocyte Esterase (Negative) Stool Occult Blood Negative (Negative) Urine Opiates Screen (NotDetected) Ur Oxycodone Screen (NotDetected) Urine Methadone Screen (NotDetected) Ur Propoxyphene Screen (NotDetected) Ur Barbiturates Screen (NotDetected) U Tricyclic Antidepress (NotDetected) Ur Phencyclidine Scrn (NotDetected) Ur Amphetamines Screen (NotDetected) U Methamphetamines Scrn (NotDetected) U Benzodiazepines Scrn (NotDetected) Urine Cocaine Screen (NotDetected) U Marijuana (THC) Screen (NotDetected) Acetone, Qual (Negative) Disposition Clinical Impression: Hallucinations Disposition: TRANSFER TO PSYCH HOSP/UNIT Referrals: Markel Morrissey MD [Primary Care Provider] - 1-2 days Time of Disposition: 19:54
[2016-07-03] MEDS ORDERED: SODIUM CHLORIDE 0.9% 1,000 ML IV STA (15:50)
[2016-07-03 16:01] LABS: Appearance,Urine Clear (Clear); Bilirubin,Urine Negative (Negative); Glucose,Urine (UA) 4+ (Negative); Ketones,Urine Negative (Negative); Leukocyte Esterase,Urine Negative (Negative); Nitrite,Urine Negative (Negative); PH, Urine 5.5 (5.0-8.0); Protein,Urine Negative (Negative); Specific Gravity,Urine 1.004 (1.001-1.035); UA Billing (MACRO vs. MICRO) CHEM; Urobilinogen,Urine <2.0 mg/dL (<2.0)
[2016-07-03 16:23] LABS: Basophils % (A) 1 %; CHCM 30.8; Eosinophils # (A) 0.1 k/uL (0-0.7); Eosinophils % (A) 1 %; HCT 28.4 % (39.0-53.0); HDW 2.91; HGB 8.7 gm/dL (13.0-17.5); Hypochromasia Moderate; Luc # (Auto) 0.19; Luc % (Auto) 3; Lymphocytes # (A) 1.8 k/uL (1.0-4.8); Lymphocytes % (A) 27 %; MCHC 30.8 g/dL (31.0-37.0); MCV 78.1 fL (80.0-100.0); Monocytes # (A) 0.4 k/uL (0-1.0); Monocytes % (A) 6 %; Neutrophils # (A) 4.1 k/uL (1.3-7.7); Neutrophils % (A) 62 %; RBC 3.64 m/uL (4.30-5.90); RDW 14.4 % (11.5-15.5); WBC 6.6 k/uL (3.8-10.6)
[2016-07-03 16:30] LABS: ALT 24 U/L (21-72); AST 16 U/L (17-59); Alkaline Phosphatase 111 U/L (38-126); Anion Gap 9 mmol/L; Blood Urea Nitrogen 10 mg/dL (9-20); Calcium 9.2 mg/dL (8.4-10.2); Carbon Dioxide 27 mmol/L (22-30); Chloride 104 mmol/L (98-107); Glucose 240 mg/dL (74-99); Non-African American GFR(MDRD) >60 (>60 ml/min/1.73 sqM); Potassium 4.2 mmol/L (3.5-5.1); Sodium 140 mmol/L (137-145); Total Bilirubin 0.3 mg/dL (0.2-1.3); Total Protein 6.3 g/dL (6.3-8.2)
[2016-07-03 18:35] LABS: Glucose,Whole Blood 186 mg/dL (75-99)
[2016-07-03] MEDS ORDERED: ONDANSETRON 4 MG TAB PO PRN (19:53)
[2016-07-03] MEDS ORDERED: MELATONIN 5 MG TABLET PO PRN (19:53)
[2016-07-03] MEDS ORDERED: ZIPRASIDONE 20 MG VIAL IM PRN (20:42)
[2016-07-03] MEDS ORDERED: INSULIN GLARGINE 100 UNIT/ML 10 ML VIAL SQ SCH (21:00)
[2016-07-03] MEDS: ATORVASTATIN 80 MG TAB PO SCH (21:37)
[2016-07-03] MEDS: METOPROLOL TARTRATE 50 MG TAB PO SCH (21:37)
[2016-07-03 21:39] LABS: Glucose,Whole Blood 364 mg/dL (75-99)
[2016-07-03] MEDS: SERTRALINE 100 MG TAB PO SCH (21:39)
[2016-07-03] MEDS: QUEtiapine 100 MG TAB PO SCH (21:39)
[2016-07-03] MEDS: INSULIN LISPRO (humaLOG) 300 UNIT/3 ML VIAL SQ SCH (21:40)
[2016-07-03] MEDS: LATANOPROST 0.005% OPHTH DROPS 2.5 ML BTL BOTH EYES SCH (22:32)
[2016-07-03] MEDS: TIMOLOL 0.5% OPHTH DROPS 5 ML BTL LEFT EYE SCH (22:33)
[2016-07-04 06:13] LABS: Glucose,Whole Blood 289 mg/dL (75-99)
[2016-07-04] MEDS: INSULIN LISPRO (humaLOG) 300 UNIT/3 ML VIAL SQ SCH ×5 (08:35→21:16)
[2016-07-04] MEDS: FAMOTIDINE 20 MG TAB PO SCH ×2 (08:38→17:27)
[2016-07-04] MEDS: PANTOPRAZOLE 40 MG TABLET PO SCH ×2 (08:40→17:52)
[2016-07-04] MEDS: METOPROLOL TARTRATE 50 MG TAB PO SCH ×2 (09:14→21:13)
[2016-07-04] MEDS: LISINOPRIL 20 MG TAB PO SCH (09:14)
[2016-07-04] MEDS: LORazepam 0.5 MG TAB PO PRN (09:17)
[2016-07-04] MEDS: QUEtiapine 100 MG TAB PO SCH ×2 (09:17→21:13)
[2016-07-04] MEDS: TIMOLOL 0.5% OPHTH DROPS 5 ML BTL LEFT EYE SCH ×2 (09:18→21:14)
[2016-07-04 11:04] LABS: Hemoglobin A1C 10.4 % (4.2-6.1)
[2016-07-04 12:17] LABS: Glucose,Whole Blood 369 mg/dL (75-99)
--- NOTE | 2016-07-04 12:43 | P.HP ---
Psychiatric H&P - . H&P Date: 07/04/16 History & Physical: IDENTIFYING DATA: Mr. Slater is a 30-year-old male who has a history of an insulin-dependent diabetes mellitus, gastroparesis and the visual impairment. HISTORY OF PRESENT ILLNESS: His father called me earlier in the admission complaining that Daniel had not slept for the last 36 hours. He has been restless and suspicious. He alleged that he has been talking to a woman "in the window." He told the [facility] nurse that he was having problems with his current medications and that he "feels paranoid." His parents told a nurse that he has been agitated, pacing and rocking back and forth. He told him that someone broke into the garage and that he thought someone was videotaping him to discuss light. He was minimally cooperative with our assessment. He provided brief answers and would not elaborate. He stated that he slept well the first night home but then had difficulty falling asleep. He admitted to feeling "suspicious" and "hearing voices" but when I asked questions to clarify these experiences he replied "I do not want talk about it." He admitted to feeling depressed but denied having thoughts of or suicide. We discharged him on 06/28/2016 with diagnoses of unspecified psychotic disorder and type 1 diabetes mellitus. His psychotropic medications included Seroquel 3 mg twice a day, melatonin 5 mg at bedtime and lorazepam 0.5 mg twice a day when necessary for agitation or acute anxiety. His family reported that he has been compliant with medications. PAST PSYCHIATRIC HISTORY: His past psychiatric history was obtained from his father during his last psychiatric hospitalization. According to his father he has a history of depression and has received mental health treatment since he was approximately 13 years old. He had a psychiatrist at [facility] in [facility]. His psychotropic medications included Tegretol 200 mg twice a day, sertraline 100 mg daily and Effexor 150 mg twice a day. His father described a marked change his behavior beginning in May 2016. He stated that Daniel became paranoid. He believed that people were outside the house and on the roof of the house spying on him. His level of paranoia was so extreme that his father covered the álvaro light in his room with cardboard to block people from potentially looking to the álvaro light. However, Daniel continue believe that people were spying and video recording him while he was in the house. He became so paranoid about his privacy that he refused to go the bathroom and began to soiled himself. He believed that people in the local town were coming to "get him". About 2 weeks prior to admission he took a shovel from the barn "to teach the children across the road a lesson". He was paranoid about their behavior. His father took to shovel away to prevent him from harming the children. Prior to admission he called his parents while they were away from the house acutely agitated. He alleged that people have broken into the house. When they came home he had locked himself in a room with knives. They have since locked away the knives and guns in the house. His father has observed him talking to people who were not present. His parents have become so concerned about his paranoia and possible danger to others that they not leave him home alone unsupervised. His father would not take him home from the medicine unit until we receive psychiatric treatment. PAST MEDICAL HISTORY: He has a history of insulin-dependent diabetes mellitus, visual impairment and gastroparesis. He was admitted to psychiatry on 2016 and transferred to the ICU on 06/09/2016 with a diagnosis of acute GI bleed. He was transferred from ICU on 06/12/2016 and discharged back to psychiatry on 06/14/2016. His discharge diagnoses included acute diabetic ketoacidosis resolved, severe intense nausea and vomiting with a history of diabetic gastroparesis, visual impairment, an episode of coffee-ground emesis secondary to gastroparesis, type 1 diabetes uncontrolled and a component of starvation ketoacidosis. His POC glucose has ranged from 186-369 since admission. ALLERGIES: Cefazolin, latex, duloxetine, pregabalin SUBSTANCE USE HISTORY: He has a history of alcohol and dextromethorphan abuse. He entered a rehabilitation program at [facility] 2 years ago and has been abstinent since. FAMILY PSYCHIATRIC/SUBSTANCE USE HISTORY: He is unaware of a family history of mental illness. LEGAL HISTORY: He has no history of legal problems. SOCIAL HISTORY: He was raised in an intact family. He graduated from high school. He is single and has no children. He lives with his parents in [facility]. He is unemployed and receives disability. MENTAL STATUS EXAM: He presented as a casually groomed 30-year-old man who was present on approach. He was guarded and suspicious but appeared to attend to the interview. He appeared to have difficulty organizing his thoughts at times appeared to be responding to internal stimuli. He had no prominent physical abnormalities were distinguishing features. He had a flat facial expression. He showed psychomotor retardation but no abnormal involuntary movements. Speech was not spontaneous. He did not express suicidal ideation or wishes. His thinking was concrete but his associations appeared logical and coherent. STRENGTHS: Supportive family, stable housing, stable income, involvement with outpatient mental health care. WEAKNESSES: Insulin-dependent diabetes mellitus, decreased visual acuity, paranoia,. IMPRESSION: He is a 30-year-old single male who has a history of a depressive disorder, visual impairment type 1 diabetes and gastroparesis. [facility] increasing paranoia, insomnia, restlessness and possible visual and auditory hallucinations. These symptoms develop rapidly over the 5 days since his discharge from this unit. He is minimally cooperative with the interview. He is guarded and suspicious. He should be treated on an outpatient basis with a combination of psychopharmacology and multimodal therapy PRINCIPLE DIAGNOSIS: Unspecified psychotic disorder, rule out schizophrenia, history of alcohol and dextromethorphan abuse, insulin-dependent diabetes mellitus, gastroparesis, visual impairment, history of ketoacidosis, history of a GI bleed RECOMMENDATION: Continue inpatient hospitalization. Continue Seroquel 3 mg by mouth twice a day and taper it and discontinue once therapeutic dose of Geodon. Begin Geodon 20 mg twice a day and titrate according to clinical response and tolerance (a target dose up to 80 mg twice a day). Consult medicine for initial physical exam and medical history. Collaborate with medicine service for management of his diabetes. 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 Encourage participation in therapeutic groups and activities. Evaluate clinical status response to treatment on a daily basis. Allergies Allergy/AdvReac Type Severity Reaction Status Date / Time adhesive tape Allergy Rash/Hives Verified 07/03/16 16:20 cefazolin Allergy Rash/Hives Verified 07/03/16 16:20 latex Allergy Rash/Hives Verified 07/03/16 16:20 metoclopramide [From Reglan] AdvReac Severe Tardive Verified 07/03/16 16:20 Dyskinesia amoxicillin [From Augmentin] AdvReac Nausea & Verified 07/03/16 16:20 Vomiting & Diarrhea clavulanic acid AdvReac Nausea & Verified 07/03/16 16:20 [From Augmentin] Vomiting & Diarrhea duloxetine [From Cymbalta] AdvReac Hallucinati Verified 07/03/16 16:20 ons pregabalin [From Lyrica] AdvReac Hallucinati Verified 07/03/16 16:20 ons Vital Signs Temp 97.8 F 07/04/16 06:29 Pulse 119 H 07/04/16 09:13 Resp 18 07/04/16 09:13 BP 110/69 07/04/16 09:13 Pulse Ox 99 07/03/16 20:28 Intake & Output 07/03/16 07/04/16 07/04/16 18:59 06:59 18:59 Intake Total 118 Balance 118 Weight 82.1 kg 80.9 kg Intake: Oral 118 Laboratory Last Values WBC 6.6 k/uL (3.8-10.6) 07/03/16 16:00 RBC 3.64 m/uL (4.30-5.90) L 07/03/16 16:00 Hgb 8.7 gm/dL (13.0-17.5) L 07/03/16 16:00 Hct 28.4 % (39.0-53.0) L 07/03/16 16:00 MCV 78.1 fL (80.0-100.0) L 07/03/16 16:00 MCH 24.0 pg (25.0-35.0) L 07/03/16 16:00 MCHC 30.8 g/dL (31.0-37.0) L 07/03/16 16:00 RDW 14.4 % (11.5-15.5) 07/03/16 16:00 Plt Count 424 k/uL (150-450) 07/03/16 16:00 Neutrophils % 62 % 07/03/16 16:00 Lymphocytes % 27 % 07/03/16 16:00 Monocytes % 6 % 07/03/16 16:00 Eosinophils % 1 % 07/03/16 16:00 Basophils % 1 % 07/03/16 16:00 Neutrophils # 4.1 k/uL (1.3-7.7) 07/03/16 16:00 Lymphocytes # 1.8 k/uL (1.0-4.8) 07/03/16 16:00 Monocytes # 0.4 k/uL (0-1.0) 07/03/16 16:00 Eosinophils # 0.1 k/uL (0-0.7) 07/03/16 16:00 Basophils # 0.0 k/uL (0-0.2) 07/03/16 16:00 Hypochromasia Moderate 07/03/16 16:00 Sodium 140 mmol/L (137-145) 07/03/16 16:00 Potassium 4.2 mmol/L (3.5-5.1) 07/03/16 16:00 Chloride 104 mmol/L (98-107) 07/03/16 16:00 Carbon Dioxide 27 mmol/L (22-30) 07/03/16 16:00 Anion Gap 9 mmol/L 07/03/16 16:00 BUN 10 mg/dL (9-20) 07/03/16 16:00 Creatinine 0.96 mg/dL (0.66-1.25) 07/03/16 16:00 Est GFR (MDRD) Af Amer >60 (>60 ml/min/1.73 sqM) 07/03/16 16:00 Est GFR (MDRD) Non-Af >60 (>60 ml/min/1.73 sqM) 07/03/16 16:00 Glucose 240 mg/dL (74-99) H 07/03/16 16:00 POC Glucose (mg/dL) 369 mg/dL (75-99) H 07/04/16 12:14 POC Glu Systems Trainer ID Cami Thakur 07/04/16 12:[address] Glu mg/dL 252 mg/dL 07/03/16 16:00 Hemoglobin A1c 10.4 % (4.2-6.1) H 07/03/16 16:00 Calcium 9.2 mg/dL (8.4-10.2) 07/03/16 16:00 Total Bilirubin 0.3 mg/dL (0.2-1.3) 07/03/16 16:00 AST 16 U/L (17-59) L 07/03/16 16:00 ALT 24 U/L (21-72) 07/03/16 16:00 Alkaline Phosphatase 111 U/L (38-126) 07/03/16 16:00 Total Protein 6.3 g/dL (6.3-8.2) 07/03/16 16:00 Albumin 3.7 g/dL (3.5-5.0) 07/03/16 16:00 TSH 1.210 mIU/L (0.465-4.680) 07/03/16 16:00 Urine Color Colorless 07/03/16 15:25 Urine Appearance Clear (Clear) 07/03/16 15:25 Urine pH 5.5 (5.0-8.0) 07/03/16 15:25 Ur Specific [place] 1.004 (1.001-1.035) 07/03/16 15:25 Urine Protein Negative (Negative) 07/03/16 15:25 Urine Glucose (UA) 4+ (Negative) H 07/03/16 15:25 Urine Ketones Negative (Negative) 07/03/16 15:25 Urine Blood Negative (Negative) 07/03/16 15:25 Urine Nitrite Negative (Negative) 07/03/16 15:25 Urine Bilirubin Negative (Negative) 07/03/16 15:25 Urine Urobilinogen <2.0 mg/dL (<2.0) 07/03/16 15:25 Ur Leukocyte Esterase Negative (Negative) 07/03/16 15:25 Stool Occult Blood Negative (Negative) 07/03/16 18:20 Urine Opiates Screen Not Detected (NotDetected) 07/03/16 15:25 Ur Oxycodone Screen Not Detected (NotDetected) 07/03/16 15:25 Urine Methadone Screen Not Detected (NotDetected) 07/03/16 15:25 Ur Propoxyphene Screen Not Detected (NotDetected) 07/03/16 15:25 Ur Barbiturates Screen Not Detected (NotDetected) 07/03/16 15:25 U Tricyclic Antidepress Detected (NotDetected) H 07/03/16 15:25 Ur Phencyclidine Scrn Not Detected (NotDetected) 07/03/16 15:25 Ur Amphetamines Screen Not Detected (NotDetected) 07/03/16 15:25 U Methamphetamines Scrn Not Detected (NotDetected) 07/03/16 15:25 U Benzodiazepines Scrn Detected (NotDetected) H 07/03/16 15:25 Urine Cocaine Screen Not Detected (NotDetected) 07/03/16 15:25 U Marijuana (THC) Screen Not Detected (NotDetected) 07/03/16 15:25 Acetone, Qual Negative (Negative) 07/03/16 16:00 07/04/16 12:28
[2016-07-04] MEDS: FERROUS SULFATE 325 MG TAB PO SCH (17:27)
[2016-07-04 17:39] LABS: Glucose,Whole Blood 321 mg/dL (75-99)
[2016-07-04 20:16] LABS: Glucose,Whole Blood 156 mg/dL (75-99)
[2016-07-04] MEDS: ATORVASTATIN 80 MG TAB PO SCH (21:11)
[2016-07-04] MEDS: LATANOPROST 0.005% OPHTH DROPS 2.5 ML BTL BOTH EYES SCH (21:12)
[2016-07-04] MEDS: ZIPRASIDONE 20 MG CAP PO SCH (21:14)
[2016-07-04] MEDS: SERTRALINE 100 MG TAB PO SCH (21:14)
[2016-07-04] MEDS: INSULIN GLARGINE 100 UNIT/ML 10 ML VIAL SQ SCH (21:19)
[2016-07-05 06:38] LABS: Glucose,Whole Blood 101 mg/dL (75-99)
[2016-07-05] MEDS: PANTOPRAZOLE 40 MG TABLET PO SCH ×2 (08:22→17:41)
[2016-07-05] MEDS: FERROUS SULFATE 325 MG TAB PO SCH ×2 (08:22→17:41)
[2016-07-05] MEDS: FAMOTIDINE 20 MG TAB PO SCH ×2 (08:22→17:41)
[2016-07-05] MEDS: INSULIN LISPRO (humaLOG) 300 UNIT/3 ML VIAL SQ SCH ×7 (08:22→20:18)
[2016-07-05] MEDS: METOPROLOL TARTRATE 50 MG TAB PO SCH ×2 (08:42→20:33)
[2016-07-05] MEDS: QUEtiapine 100 MG TAB PO SCH ×2 (08:42→20:33)
[2016-07-05] MEDS: ZIPRASIDONE 20 MG CAP PO SCH ×2 (08:42→20:33)
[2016-07-05] MEDS: LISINOPRIL 20 MG TAB PO SCH (08:42)
[2016-07-05] MEDS: TIMOLOL 0.5% OPHTH DROPS 5 ML BTL LEFT EYE SCH ×2 (08:43→20:34)
[2016-07-05 08:46] VITALS: BMI 26.3
[2016-07-05] MEDS: LORazepam 0.5 MG TAB PO PRN (08:46)
[2016-07-05] MEDS ORDERED: cloNIDine 0.1 MG/24HR PATCH 1 PATCH PATCH TRANSDERM SCH (09:00)
[2016-07-05 10:52] LABS: Glucose,Whole Blood 156 mg/dL (75-99)
--- NOTE | 2016-07-05 11:45 | P.PN ---
Progress Note - Text SUBJECTIVE: I reviewed the medical record, interviewed Mr. Slater discuss his treatment and treatment plan during team meeting. He complained of abdominal discomfort, feeling tired and uncomfortable in group situations. He denied nausea or vomiting. With much encouragement I was able to walk him to [facility] therapeutic groups this morning. He is ambivalent answers about experiences of auditory hallucinations or paranoia. He denied problems with sleep last night. He denied side effects to initial dose of Geodon. OBJECTIVE: He presented as a casually groomed 30-year-old male who was pleasant on approach. He made eye contact and attended to the interview. He had a blunted facial expression. He was alert and oriented to person, place and time. He showed psychomotor retardation but no abnormal involuntary movements. Her speech was not spontaneous with decreased rate, rhythm and volume. He was guarded but did not appear paranoid or suspicious. He denied suicidal ideation or wishes. He denied homicidal ideation. He expressed feelings of hopelessness. She did not express ideas reference or clear paranoid ideation. His thinking was concrete but his associations were coherent and logical. He admitted to auditory hallucinations but did not appear to be responding to internal stimuli. He slept 7 hours last night. His POC glucose has ranged from 101-369 over the last 24 hours. He's been compliant with prescribed medications. ASSESSMENT: He remains isolative and guarded. He is not showing the persistent insomnia described by his father. He admits to experiencing auditory hallucinations but is evasive about the content, nature and frequency. He does not appear to be responding to internal stimuli however. PLAN: Continue inpatient hospitalization. Continue with the plan to transition from Seroquel 100 mg twice a day to Geodon. Increase Geodon to 40 mg twice a day tomorrow then begin taper Seroquel. Continue Zoloft 100 mg daily, Ativan 0.5 mg by mouth twice a day for anxiety and melatonin 5 mg at bedtime when necessary for sleep. Continue Lipitor 80 mg at bedtime, Catapres TTS 0.1 mg weekly, Pepcid 20 mg by mouth before meals twice a day, Feosol 325 mg twice a day with meals, Neurontin 800 mg by mouth 3 times a day when necessary for mood/ pain, Lantus 40 units subcu at bedtime, Humalog 8 units subcu before meals 3 times a day and Humalog per sliding scale, Xalatan 0.005% ophthalmic solution both eyes at bedtime, lisinopril 20 mg daily, metoprolol 150 mg twice a day, Zofran 4 mg by mouth every 6 hours when necessary for nausea, Protonix 40 mg by mouth before meals twice a day, atenolol 0.5% ophthalmic solution in left eye twice a day. Encourage participation in therapeutic groups and activities. Evaluate clinical status response to treatment daily basis.
[2016-07-05 12:31] LABS: Glucose,Whole Blood 114 mg/dL (75-99)
[2016-07-05 17:48] LABS: Glucose,Whole Blood 91 mg/dL (75-99)
[2016-07-05] MEDS ORDERED: NAPROXEN 250 MG TAB PO PRN (17:54)
[2016-07-05] MEDS: IBUPROFEN 400 MG TAB PO PRN (18:53)
[2016-07-05 20:10] LABS: Glucose,Whole Blood 311 mg/dL (75-99)
[2016-07-05] MEDS: INSULIN GLARGINE 100 UNIT/ML 10 ML VIAL SQ SCH (20:20)
[2016-07-05] MEDS: ATORVASTATIN 80 MG TAB PO SCH (20:33)
[2016-07-05] MEDS: SERTRALINE 100 MG TAB PO SCH (20:33)
[2016-07-05] MEDS: LATANOPROST 0.005% OPHTH DROPS 2.5 ML BTL BOTH EYES SCH (20:35)
[2016-07-06 06:27] LABS: Glucose,Whole Blood 271 mg/dL (75-99)
[2016-07-06] MEDS: INSULIN LISPRO (humaLOG) 300 UNIT/3 ML VIAL SQ SCH ×7 (07:52→20:06)
[2016-07-06] MEDS: FERROUS SULFATE 325 MG TAB PO SCH ×2 (07:54→17:41)
[2016-07-06] MEDS: QUEtiapine 100 MG TAB PO SCH (07:54)
[2016-07-06] MEDS: PANTOPRAZOLE 40 MG TABLET PO SCH ×2 (07:54→17:41)
[2016-07-06] MEDS: LISINOPRIL 20 MG TAB PO SCH (07:54)
[2016-07-06] MEDS: ZIPRASIDONE 20 MG CAP PO SCH (07:55)
[2016-07-06] MEDS: METOPROLOL TARTRATE 50 MG TAB PO SCH ×2 (07:55→20:05)
[2016-07-06] MEDS: FAMOTIDINE 20 MG TAB PO SCH ×2 (07:55→17:41)
[2016-07-06] MEDS: TIMOLOL 0.5% OPHTH DROPS 5 ML BTL LEFT EYE SCH ×2 (07:56→20:06)
--- NOTE | 2016-07-06 08:54 | P.CONS ---
History of Present Illness - Reason for Consult Consult date: 07/04/16 Medical management - History of Present Illness This is a 38-year-old male and his primary care physician is Dr. Markel Flores. He has a past medical history of diabetes, glaucoma, diabetic gastroparesis, diabetic neuropathy, migraine headaches, peptic ulcer disease, vitamin D deficiency. Patient states that his parents brought him into the hospital for evaluation. He states he is having trouble with his medications and having hallucinations. He denies any suicidal thoughts. Patient states on and Sunday he was dry heaving. And he has some epigastric tenderness. He states he stopped taking his Reglan as he was having twitching. He has also stopped taking gabapentin. His hemoglobin is 8.7, hemoglobin A1c 10.4, TSH 1.10. Occult blood was negative. Urine drug screen was positive for tricyclic antidepressants and benzodiazepines. Patient has been admitted to the mental health unit. Review of Systems All systems: negative Constitutional: Denies chills, Denies fever Eyes: denies blurred vision, denies pain Ears, nose, mouth and throat: Denies headache, Denies sore throat Cardiovascular: Denies chest pain, Denies shortness of breath Respiratory: Denies cough Gastrointestinal: Reports abdominal pain, Denies diarrhea, Denies nausea, Denies vomiting Musculoskeletal: Denies myalgias Integumentary: Denies pruritus, Denies rash Neurological: Denies numbness, Denies weakness Psychiatric: Reports hallucinations, Denies anxiety, Denies depression Endocrine: Denies fatigue, Denies weight change Past Medical History Past Medical History: Diabetes Mellitus Additional Past Medical History / Comment(s): bilateral glaucoma, Tachycardia, diabetic gastropariesis, diabetic neuropathy, migraine headaches, peptic ulcer disease, retinal detachment status post multiple surgeries History of Any Multi-Drug Resistant Organisms: None Reported Additional Past Surgical History / Comment(s): eye surgery, EGDs Past Anesthesia/Blood Transfusion Reactions: No Reported Reaction Past Psychological History: Anxiety, Bipolar, Depression Smoking Status: Current every day smoker Past Alcohol Use History: None Reported Additional Past Alcohol Use History / Comment(s): Patient is a smoker one pack per day for an unknown number of years. He denies any medical marijuana, marijuana, street drug or alcohol use. He does live at home with his parents. He is single and does not have any children. Past Drug Use History: None Reported - Past Family History Father Additional Family Medical History / Comment(s): Patient does not know his father 's age nor his health problems. Mother Additional Family Medical History / Comment(s): Patient does not know his mother 's age but states she has fibromyalgia. Sister(s) Additional Family Medical History / Comment(s): Patient has 1 sister with no major medical problems. Medications and Allergies Home Medications Medication Instructions Recorded Confirmed Type Atorvastatin [Lipitor] 80 mg PO HS 06/04/16 07/03/16 History Gabapentin [Neurontin] 800 mg PO TID PRN 06/04/16 07/03/16 History Latanoprost [Xalatan 0.005%] 1 drop BOTH EYES HS 06/04/16 07/03/16 History Lisinopril [Zestril] 20 mg PO DAILY 06/04/16 07/03/16 History Metoprolol Tartrate [Lopressor] 150 mg PO BID 06/04/16 07/03/16 History Ranitidine HCl [Zantac] 150 mg PO AC-BID 06/04/16 07/03/16 History Sertraline [Zoloft] 100 mg PO HS 06/04/16 07/03/16 History Timolol 0.5% Ophth Soln [Timoptic 1 drop LEFT EYE BID 06/04/16 07/03/16 History 0.5% Ophth Soln] cloNIDine 0.1 MG/24HR PATCH 1 patch TRANSDERM WE 06/04/16 07/03/16 History [Catapres-TTS] Clindamycin Topical Soln 1 applic TOPICAL BID PRN 07/03/16 07/03/16 History [Cleocin-T Topical Soln] INSULIN LISPRO (humaLOG) [humaLOG See Protocol SQ AC-TID 07/03/16 07/03/16 History (formulary)] Insulin Glargine [Lantus] 42 unit SQ HS 07/03/16 07/03/16 History Melatonin 5 mg PO HS PRN 07/03/16 07/03/16 History Ondansetron [Zofran] 4 mg PO Q6H PRN 07/03/16 07/03/16 History Rizatriptan Benzoate [Maxalt] 10 mg PO BID PRN 07/03/16 07/03/16 History Allergies Allergy/AdvReac Type Severity Reaction Status Date / Time adhesive tape Allergy Rash/Hives Verified 07/03/16 16:20 cefazolin Allergy Rash/Hives Verified 07/03/16 16:20 latex Allergy Rash/Hives Verified 07/03/16 16:20 metoclopramide [From Reglan] AdvReac Severe Tardive Verified 07/03/16 16:20 Dyskinesia amoxicillin [From Augmentin] AdvReac Nausea & Verified 07/03/16 16:20 Vomiting & Diarrhea clavulanic acid AdvReac Nausea & Verified 07/03/16 16:20 [From Augmentin] Vomiting & Diarrhea duloxetine [From Cymbalta] AdvReac Hallucinati Verified 07/03/16 16:20 ons pregabalin [From Lyrica] AdvReac Hallucinati Verified 07/03/16 16:20 ons Physical Exam Vitals: Vital Signs Temp Pulse Pulse Pulse Pulse Resp BP 07/04/16 09:13 119 H 18 07/04/16 06:29 97.8 F 96 17 07/03/16 20:28 97.4 F L 94 12 07/03/16 20:25 98.0 F 102 H 20 132/63 07/03/16 18:00 78 20 123/56 07/03/16 15:16 99 F 119 H 18 100/61 BP BP BP Pulse Ox 07/04/16 09:13 110/69 07/04/16 06:29 113/60 07/03/16 20:28 132/80 99 07/03/16 20:25 96 07/03/16 18:00 99 07/03/16 15:16 97 Intake and Output 07/03/16 07/04/16 07/04/16 22:59 06:59 14:59 Intake Total 118 Balance 118 Intake: Oral 118 Other: Weight 80.9 kg Gen: This is a overweight 30-year-old male. He is somewhat lethargic and slow to respond. HEENT: Head is atraumatic, normocephalic. Pupils equal, round. Sclerae is anicteric. NECK: Supple. No JVD. No lymphadenopathy. No thyromegaly. LUNGS: Clear to auscultation. No wheezes or rhonchi. No intercostal retractions. HEART: Regular rate and rhythm. No murmur. ABDOMEN: Soft. Bowel sounds are present. No masses. Mild epigastric tenderness. EXTREMITIES: No pedal edema. No calf tenderness. NEUROLOGICAL: Patient is awake, alert and oriented x3. Cranial nerves 2 through 12 are grossly intact. Results CBC & Chem 7: 07/03/16 16:00 07/03/16 16:00 Labs: Abnormal Lab Results - Last 24 Hours (Table) 07/03/16 07/03/16 07/03/16 Range/Units 15:25 15:25 16:00 RBC (4.30-5.90) m/uL Hgb (13.0-17.5) gm/dL Hct (39.0-53.0) % MCV (80.0-100.0) fL MCH (25.0-35.0) pg MCHC (31.0-37.0) g/dL Glucose 240 H (74-99) mg/dL POC Glucose (mg/dL) (75-99) mg/dL Hemoglobin A1c (4.2-6.1) % AST 16 L (17-59) U/L Urine Glucose (UA) 4+ H (Negative) U Tricyclic Antidepress Detected H (NotDetected) U Benzodiazepines Scrn Detected H (NotDetected) 07/03/16 07/03/16 07/03/16 Range/Units 16:00 16:00 18:34 RBC 3.64 L (4.30-5.90) m/uL Hgb 8.7 L (13.0-17.5) gm/dL Hct 28.4 L (39.0-53.0) % MCV 78.1 L (80.0-100.0) fL MCH 24.0 L (25.0-35.0) pg MCHC 30.8 L (31.0-37.0) g/dL Glucose (74-99) mg/dL POC Glucose (mg/dL) 186 H (75-99) mg/dL Hemoglobin A1c 10.4 H (4.2-6.1) % AST (17-59) U/L Urine Glucose (UA) (Negative) U Tricyclic Antidepress (NotDetected) U Benzodiazepines Scrn (NotDetected) 07/03/16 07/04/16 07/04/16 Range/Units 21:37 06:12 12:14 RBC (4.30-5.90) m/uL Hgb (13.0-17.5) gm/dL Hct (39.0-53.0) % MCV (80.0-100.0) fL MCH (25.0-35.0) pg MCHC (31.0-37.0) g/dL Glucose (74-99) mg/dL POC Glucose (mg/dL) 364 H 289 H 369 H (75-99) mg/dL Hemoglobin A1c (4.2-6.1) % AST (17-59) U/L Urine Glucose (UA) (Negative) U Tricyclic Antidepress (NotDetected) U Benzodiazepines Scrn (NotDetected) Assessment and Plan Plan: 1. Hallucinations and a patient with history of anxiety and bipolar. He should admitted to the mental health unit. Continue current plan of care. 2. Diabetes mellitus type 1 suspected, insulin requiring with multiple complications including diabetic gastroparesis and diabetic neuropathy. Continue Lantus 48 units at bedtime along with Humalog 8 units scheduled with meals and scale before meals and at bedtime, gabapentin 800 mg 3 times daily. Patient is off Reglan due to twitching. 3. Hyperlipidemia. Continue Lipitor 80 mg at bedtime. 4. Hypertension. Continue clonidine patch, lisinopril, Lopressor. 5. Gastroesophageal reflux disease. Continue Protonix and pepcid. 6. Glaucoma. Continue Xalatan, Timoptic. 7. Chronic anemia most likely anemia of chronic disease. Continue iron supplement. 8. Tobacco use and dependence. Patient is not on nicotine patch. Impression and plan of care have been directed as dictated by the signing physician. Marti Marrero nurse practitioner acting as scribe for signing physician.
[2016-07-06 12:51] LABS: Glucose,Whole Blood 296 mg/dL (75-99)
[2016-07-06] MEDS: IBUPROFEN 400 MG TAB PO PRN (13:19)
[2016-07-06] MEDS: LORazepam 0.5 MG TAB PO PRN ×2 (13:20→23:14)
--- NOTE | 2016-07-06 13:56 | P.PN ---
Progress Note - Text SUBJECTIVE: I reviewed the medical record, interviewed Mr. Slater and discuss his treatment and treatment plan during team meeting. He came to my office for the interview but appeared restless and guarded. He provided little information. When asked about the problems that occurred prior to admission he replied "what my father told you." He admitted to feeling paranoid and thought that people were "trying to break into the house." He did not give a clear response to questions about current feelings of suspiciousness or paranoia. Likewise, he did not get a clear response to questions about psychotic symptoms such as auditory or visual hallucinations, ideas reference, thought insertion, thought broadcasting or thought control. His only complaint was increased sedation since we started Geodon. OBJECTIVE: He presented as a casually groomed 30-year-old male who was pleasant on approach. He appeared to make eye contact and attended to the interview. He had a blunted facial expression. He was restless. Speech was not spontaneous and had decreased rate, rhythm and volume. His affect was guarded, anxious and suspicious. He denied suicidal ideation or wishes. He denied homicidal ideation. He denied feeling hopeless, helpless or worthless. He did not express ideas reference or clear paranoid ideation. His thinking was concrete but his associations appeared coherent. He did not appear to be responding to internal stimuli at this time. ASSESSMENT: He is experiencing sedation from the current dose of Geodon. He continues to appear suspicious. PLAN: Continue inpatient hospitalization. Increase Geodon to 40 mg twice a day and decrease Seroquel to 200 mg twice a day. Continue Zoloft 100 mg daily, Ativan 0.5 mg by mouth twice a day for anxiety and melatonin 5 mg at bedtime when necessary for sleep. Continue Lipitor 80 mg at bedtime, Catapres TTS 0.1 mg weekly, Pepcid 20 mg by mouth before meals twice a day, Feosol 325 mg twice a day with meals, Neurontin 800 mg by mouth 3 times a day when necessary for mood/pain, Lantus 40 units subcu at bedtime, Humalog 8 units subcu before meals 3 times a day and Humalog per sliding scale, Xalatan 0.005% ophthalmic solution both eyes at bedtime, lisinopril 20 mg daily, metoprolol 150 mg twice a day, Zofran 4 mg by mouth every 6 hours when necessary for nausea, Protonix 40 mg by mouth before meals twice a day, atenolol 0.5% ophthalmic solution in left eye twice a day. Encourage participation in therapeutic groups and activities. Evaluate clinical status response to treatment daily basis.
[2016-07-06 17:40] LABS: Glucose,Whole Blood 178 mg/dL (75-99)
[2016-07-06] MEDS: LATANOPROST 0.005% OPHTH DROPS 2.5 ML BTL BOTH EYES SCH (20:02)
[2016-07-06 20:03] LABS: Glucose,Whole Blood 126 mg/dL (75-99)
[2016-07-06] MEDS: INSULIN GLARGINE 100 UNIT/ML 10 ML VIAL SQ SCH (20:03)
[2016-07-06] MEDS: GABAPENTIN 400 MG CAP PO PRN (20:05)
[2016-07-06] MEDS: ATORVASTATIN 80 MG TAB PO SCH (20:05)
[2016-07-06] MEDS: SERTRALINE 100 MG TAB PO SCH (20:05)
[2016-07-06] MEDS: QUEtiapine 200 MG TAB PO SCH (20:05)
[2016-07-06] MEDS: ZIPRASIDONE 40 MG CAP PO SCH (20:07)
[2016-07-06 22:05] LABS: Glucose,Whole Blood 137 mg/dL (75-99)
[2016-07-07 06:58] LABS: Glucose,Whole Blood 170 mg/dL (75-99)
[2016-07-07] MEDS: FAMOTIDINE 20 MG TAB PO SCH ×2 (08:05→17:26)
[2016-07-07] MEDS: FERROUS SULFATE 325 MG TAB PO SCH ×2 (08:05→17:26)
[2016-07-07] MEDS: PANTOPRAZOLE 40 MG TABLET PO SCH ×2 (08:05→17:26)
[2016-07-07] MEDS: LISINOPRIL 20 MG TAB PO SCH (08:06)
[2016-07-07] MEDS: TIMOLOL 0.5% OPHTH DROPS 5 ML BTL LEFT EYE SCH ×2 (08:06→21:00)
[2016-07-07] MEDS: METOPROLOL TARTRATE 50 MG TAB PO SCH ×2 (08:06→20:40)
[2016-07-07] MEDS: ZIPRASIDONE 40 MG CAP PO SCH ×2 (08:06→20:43)
[2016-07-07] MEDS: QUEtiapine 200 MG TAB PO SCH (08:06)
[2016-07-07] MEDS: INSULIN LISPRO (humaLOG) 300 UNIT/3 ML VIAL SQ SCH ×7 (08:07→19:56)
[2016-07-07] MEDS: IBUPROFEN 400 MG TAB PO PRN (10:26)
--- NOTE | 2016-07-07 11:11 | P.PN ---
Progress Note - Text SUBJECTIVE: I reviewed the medical record, interviewed Daniel and discuss his treatment and treatment plan during team meeting. He complained of sedation, dry eyes and requested a prescription for artificial tears. I explained that we are in the process of transitioning from Seroquel to Geodon and the sedation will decrease as we tapered and discontinued the Seroquel. I attempted to engage him again in a discussion about the problems that led him to the hospital. He was a bit more talkative but provided little additional information. He admitted that he was feeling paranoid and concerned about his and his family's safety. He was unable to identify any event or experience that contributed to concern about his safety. He did not sleep at home because he felt the need to remain vigilant. When I asked about his current experiences such as auditory or visual hallucinations or feelings of suspiciousness/paranoia he replied "a bit" and would not explain himself further. In general, he feels safer in the hospital and he did at home. OBJECTIVE: He presented as a casually groomed 30-year-old male who was pleasant on approach. He looked at my direction as we spoke. He attended to the interview. He had a blunted but bright facial expression. He showed slight psychomotor retardation but no abnormal involuntary movements. His gait was slow but steady. His speech was spontaneous with decreased amount and volume. He was guarded but did not appear overtly paranoid or suspicious. He denied suicidal ideation or wishes. He denied feeling hopeless, helpless or worthless. He did not express ideas reference or clear paranoid ideation. His thinking was concrete. Associations were coherent and logical. He denied hallucinations and did not appear to responding to internal stimuli. His POC glucose range from 126 to 296 over the last 24 hours. He did not attend therapeutic groups and activities yesterday. He slept 7 hours. ASSESSMENT: He appears less guarded and was more engaged during our interview. PLAN: Continue inpatient hospitalization. Continue suicide precautions with 15 minute checks. Decrease Seroquel to 100 mg twice a day and discontinue on 07/09. Continue Geodon 40 mg by mouth twice a day and titrated according to clinical response and tolerance.
[2016-07-07 12:10] LABS: Glucose,Whole Blood 217 mg/dL (75-99)
[2016-07-07] MEDS: LORazepam 0.5 MG TAB PO PRN ×2 (12:36→23:24)
[2016-07-07] MEDS: ARTIFICIAL TEARS-HYPROMELLOSE DROPS 15 ML BTL BOTH EYES PRN (15:55)
[2016-07-07 17:03] LABS: Glucose,Whole Blood 97 mg/dL (75-99)
[2016-07-07] MEDS: INSULIN GLARGINE 100 UNIT/ML 10 ML VIAL SQ SCH (19:52)
[2016-07-07 19:57] LABS: Glucose,Whole Blood 153 mg/dL (75-99)
[2016-07-07] MEDS: LATANOPROST 0.005% OPHTH DROPS 2.5 ML BTL BOTH EYES SCH (20:39)
[2016-07-07] MEDS: ATORVASTATIN 80 MG TAB PO SCH (20:40)
[2016-07-07] MEDS: SERTRALINE 100 MG TAB PO SCH (20:40)
[2016-07-07] MEDS: QUEtiapine 100 MG TAB PO SCH (20:43)
[2016-07-07 22:29] LABS: Glucose,Whole Blood 130 mg/dL (75-99)
[2016-07-08 07:05] LABS: Glucose,Whole Blood 217 mg/dL (75-99)
[2016-07-08] MEDS: TIMOLOL 0.5% OPHTH DROPS 5 ML BTL LEFT EYE SCH ×2 (08:55→20:42)
[2016-07-08] MEDS: FAMOTIDINE 20 MG TAB PO SCH ×2 (08:55→17:15)
[2016-07-08] MEDS: LISINOPRIL 20 MG TAB PO SCH (08:55)
[2016-07-08] MEDS: METOPROLOL TARTRATE 50 MG TAB PO SCH ×2 (08:55→20:41)
[2016-07-08] MEDS: ZIPRASIDONE 40 MG CAP PO SCH ×2 (08:55→20:41)
[2016-07-08] MEDS: PANTOPRAZOLE 40 MG TABLET PO SCH ×2 (08:55→17:15)
[2016-07-08] MEDS: QUEtiapine 100 MG TAB PO SCH ×2 (08:55→20:41)
[2016-07-08] MEDS: FERROUS SULFATE 325 MG TAB PO SCH ×2 (08:55→17:15)
[2016-07-08] MEDS: INSULIN LISPRO (humaLOG) 300 UNIT/3 ML VIAL SQ SCH ×7 (08:56→20:34)
[2016-07-08] MEDS: LORazepam 0.5 MG TAB PO PRN ×2 (08:58→19:56)
[2016-07-08] MEDS: IBUPROFEN 400 MG TAB PO PRN ×2 (11:20→20:45)
[2016-07-08] MEDS: GABAPENTIN 400 MG CAP PO PRN (12:05)
[2016-07-08 12:14] LABS: Glucose,Whole Blood 254 mg/dL (75-99)
--- NOTE | 2016-07-08 12:32 | P.PN ---
Progress Note - Text INTERVAL HISTORY:Cross cover for weekend. Reviewed chart. Met with patient. Reports reports that he is okay, but states he is still having hallucinations. Asked him to describe and he reports when he looks at the clock he sees the second hand moving. Reports that he is still paranoid, but feeling safe here, not feeling that people were going to be able to come in and harm him or steal from him. Patient asks about an antibiotic for his skin. Asks about Neurontin for his neuropathy. Patient denies suicidal ideation. Denies homicidal ideation MENTAL STATUS EXAM:Patient alert and oriented 3, poor eye contact, fair groomed in hospital attire/street clothing. Speech normal volume, rate and production. Coherent, logical and circumstantial thought process. No ERIC, no FOI. Some thought blocking +auditory and +visual hallucinations. +paranoid ideation, delusions or IOR. Memory [grossly intact] Cognition average Mood Will, affect Jefferson, congruent with mood. Denies suicidal ideation, denies homicidal ideation. Insight partial; Judgement grossly intact for treatment purposes PLAN: Continue inpatient hospitalization for safety, and treatment of schizophrenia. Continue suicide precaution 15 minute checks. Continue decrease of Seroquel 100 mg twice a day and then discontinue on July 09 Continue Geodon 40 mg by mouth twice a day and titrated according to clinical response and tolerance.
[2016-07-08] MEDS: ARTIFICIAL TEARS-HYPROMELLOSE DROPS 15 ML BTL BOTH EYES PRN (13:17)
[2016-07-08 16:56] LABS: Glucose,Whole Blood 99 mg/dL (75-99)
[2016-07-08 17:34] LABS: Glucose,Whole Blood 88 mg/dL (75-99)
[2016-07-08 19:06] LABS: Glucose,Whole Blood 127 mg/dL (75-99)
[2016-07-08 20:30] LABS: Glucose,Whole Blood 304 mg/dL (75-99)
[2016-07-08] MEDS: INSULIN GLARGINE 100 UNIT/ML 10 ML VIAL SQ SCH (20:36)
[2016-07-08] MEDS: SERTRALINE 100 MG TAB PO SCH (20:41)
[2016-07-08] MEDS: ATORVASTATIN 80 MG TAB PO SCH (20:42)
[2016-07-08] MEDS: LATANOPROST 0.005% OPHTH DROPS 2.5 ML BTL BOTH EYES SCH (20:43)
[2016-07-09 06:32] LABS: Glucose,Whole Blood 229 mg/dL (75-99)
[2016-07-09] MEDS: INSULIN LISPRO (humaLOG) 300 UNIT/3 ML VIAL SQ SCH ×7 (07:46→20:29)
[2016-07-09] MEDS: FAMOTIDINE 20 MG TAB PO SCH ×2 (08:22→17:18)
[2016-07-09] MEDS: PANTOPRAZOLE 40 MG TABLET PO SCH ×2 (08:22→17:18)
[2016-07-09] MEDS: METOPROLOL TARTRATE 50 MG TAB PO SCH ×2 (08:22→20:42)
[2016-07-09] MEDS: FERROUS SULFATE 325 MG TAB PO SCH ×2 (08:22→17:18)
[2016-07-09] MEDS: LISINOPRIL 20 MG TAB PO SCH (08:22)
[2016-07-09] MEDS: ZIPRASIDONE 40 MG CAP PO SCH (08:23)
[2016-07-09] MEDS: LORazepam 0.5 MG TAB PO PRN ×2 (08:24→19:52)
[2016-07-09] MEDS: TIMOLOL 0.5% OPHTH DROPS 5 ML BTL LEFT EYE SCH ×2 (08:27→20:39)
[2016-07-09] MEDS ORDERED: ZIPRASIDONE 20 MG CAP PO STA (11:53)
--- NOTE | 2016-07-09 11:54 | P.PN ---
Progress Note - Text INTERVAL HISTORY:Cross cover for weekend, Dr Dvaey panel. Reviewed chart. Met with patient. Not attending groups. Reports reports that he still feels groggy. Reports that last night while in bed he had visual hallucinations in the light seeing people standing above the light. States today he knows that that sounds crazy. Reviewed that that is a positive that he is recognizing when the hallucination is not rational or believable. States that his thoughts are racing. When asked about attending the groups patient states that he was diagnosed with social phobia. States that he feels uncomfortable in groups. Reports that he still is paranoid and references the visual hallucination that he had last night. Patient also reports that he thinks he has the 24 hour sleep disorder that he saw advertised on TV. Reports that he slept well when he was taking Ambien 15 mg +1 mg of Ativan but that the neurologist eventually took him off of Ambien. States that he had been tried on doxepin but that he had a reaction to it at 100 mg where he jumped out of bed and found himself standing on the nightstand another time he hit the nightstand and bruised his rib. Patient denies suicidal ideation. Denies homicidal ideation Patient denies side effects to the Geodon and agrees to an increase, 60 mg twice a day, will give 20 mg now. MENTAL STATUS EXAM:Patient alert and oriented 3, fair eye contact, fair groomed in street clothing. Speech normal volume, rate and production. Coherent, logical and circumstantial thought process. No ERIC, no FOI. Some thought blocking +auditory and +visual hallucinations. +paranoid ideation, delusions or IOR. Memory [grossly intact] Cognition average Mood blunted, affect flat, congruent with mood. Denies suicidal ideation, denies homicidal ideation. Insight partial; Judgment grossly intact for treatment purposes Plan: Continue inpatient hospitalization for safety and treatment of schizophrenia. Continue suicide precaution 15 minute checks Continue tapering of Seroquel Increase Geodon 60 mg twice a day by mouth, 20 mg dose now. We'll titrate according to clinical response and tolerance Encourage patient to try to maintain a routine for sleep, to not sleep or laying in bed during the day, and to at least try to go to groups and if cannot tolerate he can leave.
[2016-07-09 11:59] LABS: Glucose,Whole Blood 270 mg/dL (75-99)
[2016-07-09] MEDS: IBUPROFEN 400 MG TAB PO PRN (16:00)
[2016-07-09] MEDS: ARTIFICIAL TEARS-HYPROMELLOSE DROPS 15 ML BTL BOTH EYES PRN (17:19)
[2016-07-09 17:23] LABS: Glucose,Whole Blood 219 mg/dL (75-99)
[2016-07-09 20:12] LABS: Glucose,Whole Blood 80 mg/dL (75-99)
[2016-07-09] MEDS: ATORVASTATIN 80 MG TAB PO SCH (20:38)
[2016-07-09] MEDS: ZIPRASIDONE 60 MG CAP PO SCH (20:38)
[2016-07-09] MEDS: SERTRALINE 100 MG TAB PO SCH (20:39)
[2016-07-09] MEDS: LATANOPROST 0.005% OPHTH DROPS 2.5 ML BTL BOTH EYES SCH (20:40)
[2016-07-09] MEDS ORDERED: INSULIN GLARGINE 100 UNIT/ML 10 ML VIAL SQ SCH ×2 (21:12→21:30)
[2016-07-09] MEDS: INSULIN GLARGINE 100 UNIT/ML 10 ML VIAL SQ SCH ×3 (21:16→21:32)
[2016-07-09 21:40] LABS: Glucose,Whole Blood 117 mg/dL (75-99)
[2016-07-09 22:44] LABS: Glucose,Whole Blood 118 mg/dL (75-99)
[2016-07-10 06:47] LABS: Glucose,Whole Blood 265 mg/dL (75-99)
[2016-07-10] MEDS: INSULIN LISPRO (humaLOG) 300 UNIT/3 ML VIAL SQ SCH ×4 (08:10→13:08)
[2016-07-10] MEDS: FERROUS SULFATE 325 MG TAB PO SCH (08:12)
[2016-07-10] MEDS: FAMOTIDINE 20 MG TAB PO SCH (08:12)
[2016-07-10] MEDS: PANTOPRAZOLE 40 MG TABLET PO SCH (08:12)
[2016-07-10] MEDS: ZIPRASIDONE 60 MG CAP PO SCH (08:12)
[2016-07-10] MEDS: METOPROLOL TARTRATE 50 MG TAB PO SCH (08:38)
[2016-07-10] MEDS: LISINOPRIL 20 MG TAB PO SCH (08:38)
[2016-07-10] MEDS: TIMOLOL 0.5% OPHTH DROPS 5 ML BTL LEFT EYE SCH (08:39)
[2016-07-10] MEDS: IBUPROFEN 400 MG TAB PO PRN (10:13)
[2016-07-10] MEDS: LORazepam 0.5 MG TAB PO PRN (12:24)
[2016-07-10 12:36] LABS: Glucose,Whole Blood 348 mg/dL (75-99)
[2016-07-10 13:36] VITALS: BP 132/80; PULSE 94; RESP 12; TEMP 97.4
--- NOTE | 2016-07-11 09:38 | DS ---
DATE OF ADMISSION: 07/03/2016 DATE OF DISCHARGE: 07/10/2016 CONSULT PHYSICIAN: Tim. CONSULTING PROVIDER: Marti Marrero. CONSULT REASON: For medical management. Do you want consulting provider notified? Yes. DISCHARGE DIAGNOSES: 1. Unspecified psychotic disorder. 2. Schizoaffective disorder, depressed. 3. History of alcohol and dextromethorphan abuse. 4. Insulin-dependent diabetes. 5. Gastroparesis. 6. Past history of gastrointestinal bleeding. 7. 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 BRIEF SUMMARY OF THE ADMISSION NOTES: Please refer to initial psychiatric evaluation dictated by Dr. Davey. The patient was readmitted to the mental health unit after 5 days from his discharge with auditory and visual hallucination, paranoia, suspicious feeling. For complete evaluation, please refer to initial psychiatric dictation. HOSPITAL COURSE: The patient was admitted to the mental health unit on voluntary basis. Once he was readmitted to the mental health unit, he was restarted on his psychotropic medication except Seroquel was gradually discontinued and patient was started on Geodon. Geodon was gradually increased to 60 mg twice a day. Patient was able to tolerate the medication without having any side effect. Initially he was complaining of trouble sleeping at night. However, Ativan and melatonin did help to restore his normal sleep. Patient stated that increasing Geodon to 60 twice a day for the last couple of days eliminates auditory and visual hallucination. He did express that sometimes he does see shadows, but this is related to his vision problem. Patient stated he does not attend any group therapy because he has a social phobia and he does feel more comfortable in one-to-one session and our social studies department chair did contact the patient's father who would come pick him up today as the patient denied any hallucination for the last 2 days. He does not feel so drowsy and tired on the Geodon as the Seroquel. He denied any suicidal or homicidal ideation. MENTAL STATUS EXAMINATION: At the time of the discharge, patient is alert. He was very calmly sitting, good hygiene and grooming, alert and oriented x3. Speech is normal in volume rate and production. Thought process is coherent, logical. He denied any auditory or visual hallucination. He denied any paranoia. His memory is grossly intact. Affect is flat. Denied suicidal ideation. Denied homicidal ideation. His insight and judgment are intact. PLAN: 1. The patient will be discharged from the mental health unit today. Patient has to pursue outpatient therapy in [facility] to be able to adjust to his sensory impairment as it seems that he has been losing his vision gradually. 2. Patient will continue with his primary care physician for medical management of his medical problem including diabetes management. Patient is aware of the addiction potential of the Ativan. I did not renew any of his psychotropic medication as he was just recently discharged from our unit 5 days prior to this admission; however, I did give him new prescription for Geodon 60 mg twice a day. I did explain to him that this also will help his blood glucose better than the Seroquel ( ) affecting his metabolic disorder in negative way. Patient reporting no suicidal ideation. There is no eminent safety risk and he is appropriate for transition back to the outpatient care. He was instructed to return to the emergency room if any acute safety concern. Patient's condition at the time of the discharge, stable.
== END 2016-07-10 16:15 | disposition home or self-care (01) | DRG 885 ==
LOC: EC 15:07 → 3MHU 20:09
PROVIDERS: ADMIT Psychiatry & Neurology Psychiatry; ATTEND Psychiatry & Neurology Psychiatry
DX: F25.9 Schizoaffective disorder, unspecified (principal); K31.84 Gastroparesis; E10.43 Type 1 diabetes mellitus with diabetic autonomic (poly)neuropathy; H33.20 Serous retinal detachment, unspecified eye; F17.200 Nicotine dependence, unspecified, uncomplicated; F40.10 Social phobia, unspecified; H40.9 Unspecified glaucoma; H54.0 Blindness, both eyes; Z79.4 Long term (current) use of insulin; Z79.899 Other long term (current) drug therapy; Z87.11 Personal history of peptic ulcer disease; Z91.040 Latex allergy status
CPT/HCPCS: 36415; 80053; 80306; 81003; 82009; 82075; 82272; 83036; 84443; 85025; 96360; 99285

== ENCOUNTER 2016-07-13 21:32 | Emergency (ER) | payer OTHER ==
--- NOTE | 2016-07-13 23:36 | ED ---
Psych HPI - General Chief Complaint: Psychiatric Symptoms Stated Complaint: mental health Time Seen by Provider: 07/13/16 22:18 Source: patient, family, RN notes reviewed Mode of arrival: ambulatory - History of Present Illness Initial Comments: Patient is a 30-year-old male presents emergency room for psych evaluation. Patient has a history of schizophrenia and psychosis. Patient states he was recently discharged from here. Patient states he was doing pretty well until today. Patient states he's having visual hallucinations and auditory hallucinations. Patient states he sustained these. Patient states he hears voices whispering in his ear. Patient denies suicidal ideations or homicidal ideations. Patient does admit that he has anger problems develop. Patient states he followed up with [facility] yesterday. Patient's father states that he has an appointment with the psychiatrist on Sunday. Patient denies any recent changes in medications. Patient denies illicit drug use, alcohol use. Patient denies chest pain, shortness of breath, headache, dizziness, nausea, vomiting. - Related Data Home Medications Medication Instructions Recorded Confirmed Atorvastatin [Lipitor] 80 mg PO HS 06/04/16 07/13/16 Gabapentin [Neurontin] 800 mg PO TID PRN 06/04/16 07/13/16 Latanoprost [Xalatan 0.005%] 1 drop BOTH EYES HS 06/04/16 07/13/16 Lisinopril [Zestril] 20 mg PO DAILY 06/04/16 07/13/16 Metoprolol Tartrate [Lopressor] 100 - 150 mg PO BID 06/04/16 07/13/16 Ranitidine HCl [Zantac] 150 mg PO AC-BID 06/04/16 07/13/16 Sertraline [Zoloft] 100 mg PO HS 06/04/16 07/13/16 Timolol 0.5% Ophth Soln [Timoptic 1 drop LEFT EYE BID 06/04/16 07/13/16 0.5% Ophth Soln] cloNIDine 0.1 MG/24HR PATCH 1 patch TRANSDERM WE 06/04/16 07/13/16 [Catapres-TTS] Clindamycin Topical Soln 1 applic TOPICAL BID PRN 07/03/16 07/13/16 [Cleocin-T Topical Soln] INSULIN LISPRO (humaLOG) [humaLOG See Protocol SQ AC-TID 07/03/16 07/13/16 (formulary)] Insulin Glargine [Lantus] 42 unit SQ HS 07/03/16 07/13/16 Melatonin 5 mg PO HS PRN 07/03/16 07/13/16 Ondansetron [Zofran] 4 mg PO Q6H PRN 07/03/16 07/13/16 Rizatriptan Benzoate [Maxalt] 10 mg PO BID PRN 07/03/16 07/13/16 Previous Rx's Medication Instructions Recorded Pantoprazole [Protonix] 40 mg PO AC-BID tablet. 06/14/16 LORazepam [Ativan] 0.5 mg PO BID PRN #60 tab 06/28/16 QUEtiapine FUMARATE [SEROquel] 300 mg PO BID #60 tab 06/28/16 Ferrous Sulfate [Iron (65 MG 325 mg PO BID-W/MEALS #60 tab 07/10/16 Elemental)] Ziprasidone [Geodon] 60 mg PO BID #60 cap 07/10/16 Allergies Allergy/AdvReac Type Severity Reaction Status Date / Time adhesive tape Allergy Rash/Hives Verified 07/13/16 22:31 cefazolin Allergy Rash/Hives Verified 07/13/16 22:31 latex Allergy Rash/Hives Verified 07/13/16 22:31 metoclopramide [From Reglan] AdvReac Severe Tardive Verified 07/13/16 22:31 Dyskinesia amoxicillin [From Augmentin] AdvReac Nausea & Verified 07/13/16 22:31 Vomiting & Diarrhea clavulanic acid AdvReac Nausea & Verified 07/13/16 22:31 [From Augmentin] Vomiting & Diarrhea duloxetine [From Cymbalta] AdvReac Hallucinati Verified 07/13/16 22:31 ons pregabalin [From Lyrica] AdvReac Hallucinati Verified 07/13/16 22:31 ons Review of Systems ROS Statement: Those systems with pertinent positive or pertinent negative responses have been documented in the HPI. ROS Other: All systems not noted in ROS Statement are negative. Past Medical History Past Medical History: Diabetes Mellitus Additional Past Medical History / Comment(s): bilateral glaucoma, Tachycardia, diabetic gastropariesis, diabetic neuropathy, migraine headaches, peptic ulcer disease, retinal detachment status post multiple surgeries History of Any Multi-Drug Resistant Organisms: None Reported Additional Past Surgical History / Comment(s): eye surgery, EGDs Past Anesthesia/Blood Transfusion Reactions: No Reported Reaction Past Psychological History: Anxiety, Bipolar, Depression Smoking Status: Current every day smoker Past Alcohol Use History: None Reported Additional Past Alcohol Use History / Comment(s): Patient is a smoker one pack per day for an unknown number of years. He denies any medical marijuana, marijuana, street drug or alcohol use. He does live at home with his parents. He is single and does not have any children. Past Drug Use History: None Reported - Past Family History Father Additional Family Medical History / Comment(s): Patient does not know his father 's age nor his health problems. Mother Additional Family Medical History / Comment(s): Patient does not know his mother 's age but states she has fibromyalgia. Sister(s) Additional Family Medical History / Comment(s): Patient has 1 sister with no major medical problems. General Exam - General Exam Comments Initial Comments: sitting in exam room, no distress. Limitations: no limitations General appearance: alert, in no apparent distress Head exam: Present: atraumatic, normocephalic, normal inspection Eye exam: Present: normal appearance ENT exam: Present: normal exam Neck exam: Present: normal inspection Respiratory exam: Present: normal lung sounds bilaterally. Absent: respiratory distress Cardiovascular Exam: Present: regular rate, normal rhythm, normal heart sounds GI/Abdominal exam: Present: soft, normal bowel sounds. Absent: distended, tenderness, guarding, rebound, rigid Extremities exam: Present: normal inspection Back exam: Present: normal inspection Neurological exam: Present: alert, oriented X3, CN II-XII intact, normal gait Psychiatric exam: Present: normal affect, normal mood Skin exam: Present: warm, dry, intact, normal color. Absent: rash Course Vital Signs 07/13/16 07/14/16 21:49 03:22 Temperature 97.6 F 96.9 F L Pulse Rate 104 H 68 Respiratory 18 16 Rate Blood Pressure 114/64 132/79 O2 Sat by Pulse 96 96 Oximetry Medical Decision Making - Medical Decision Making Patient is a 30-year-old male presents emergency room for psychiatric evaluation. Patient medically cleared to be evaluated by psych. Patient evaluated and does not meet admission criteria. Patient has an appointment with Dr. Tafoya on Sunday and agreed to follow up with [facility]. Return parameters discussed. - Lab Data Lab Results 07/14/16 Range/Units 00:01 Urine Opiates Screen Not Detected (NotDetected) Ur Oxycodone Screen Not Detected (NotDetected) Urine Methadone Screen Not Detected (NotDetected) Ur Propoxyphene Screen Not Detected (NotDetected) Ur Barbiturates Screen Not Detected (NotDetected) U Tricyclic Antidepress Detected H (NotDetected) Ur Phencyclidine Scrn Not Detected (NotDetected) Ur Amphetamines Screen Not Detected (NotDetected) U Methamphetamines Scrn Not Detected (NotDetected) U Benzodiazepines Scrn Detected H (NotDetected) Urine Cocaine Screen Not Detected (NotDetected) U Marijuana (THC) Screen Not Detected (NotDetected) Disposition Clinical Impression: Bipolar disorder, Anxiety Disposition: HOME SELF-CARE Condition: Good Instructions: Bipolar Disorder (ED) Additional Instructions: Please follow-up with Dr. Tafoya on Sunday and [facility]. If any new symptom arises or symptoms worsen, return to ER as soon as possible. Referrals: Wisam Vickers MD [Primary Care Provider] - 1-2 days Time of Disposition: 03:19
[2016-07-14 03:28] VITALS: BP 132/79; PULSE 68; RESP 16; TEMP 96.9
== END 2016-07-14 03:28 | disposition home or self-care (01) ==
LOC: EC 21:32
DX: F31.9 Bipolar disorder, unspecified (principal); F41.9 Anxiety disorder, unspecified; E11.43 Type 2 diabetes mellitus with diabetic autonomic (poly)neuropathy; K31.84 Gastroparesis; E11.40 Type 2 diabetes mellitus with diabetic neuropathy, unspecified; F17.200 Nicotine dependence, unspecified, uncomplicated; Z79.4 Long term (current) use of insulin; Z79.899 Other long term (current) drug therapy; Z88.0 Allergy status to penicillin; Z88.1 Allergy status to other antibiotic agents; Z88.8 Allergy status to other drugs, medicaments and biological substances; Z91.040 Latex allergy status; Z91.09 Other allergy status, other than to drugs and biological substances; Z87.11 Personal history of peptic ulcer disease
CPT/HCPCS: 80306; 82075; 99284

== ENCOUNTER → 2018-01-24 | Outpatient (CLI) | payer MEDICARE, OTHER | END | disposition home or self-care (01) | LOC: LABWHC1 14:41 | PROVIDERS: ATTEND Nurse Practitioner Family | DX: Z51.81 Encounter for therapeutic drug level monitoring (principal); Z79.899 Other long term (current) drug therapy | CPT/HCPCS: 36415 ==

== ENCOUNTER → 2019-04-10 | Outpatient (CLI) | payer MEDICARE, OTHER ==
--- NOTE | 2019-04-10 15:15 | XR ---
EXAMINATION TYPE: XR chest 2V DATE OF EXAM: 04/10/2019 COMPARISON: 01/05/2017 HISTORY: Shortness of breath and COPD. TECHNIQUE: Frontal and lateral views of the chest are obtained. FINDINGS: There is no focal air space opacity, pleural effusion, or pneumothorax seen. The cardiac silhouette size is within normal limits. The osseous structures are intact. IMPRESSION: No acute cardiopulmonary process.
== END | disposition home or self-care (01) ==
LOC: RAD 14:35
PROVIDERS: ATTEND Internal Medicine Sleep Medicine
DX: J44.9 Chronic obstructive pulmonary disease, unspecified (principal)
CPT/HCPCS: 71046

== ENCOUNTER → 2019-11-28 | Outpatient (CLI) | payer MEDICARE, OTHER ==
[2019-11-28 14:05] LABS: Anisocytosis Slight; Basophils # (A) 0.1 k/uL (0-0.2); Basophils % (A) 1 %; Eosinophils # (A) 0.1 k/uL (0-0.7); Eosinophils % (A) 1 %; HCT 36.4 % (39.0-53.0); HGB 10.8 gm/dL (13.0-17.5); Hypochromasia Marked; Lymphocytes # (A) 2.2 k/uL (1.0-4.8); Lymphocytes % (A) 22 %; MCH 19.9 pg (25.0-35.0); MCHC 29.5 g/dL (31.0-37.0); MCV 67.4 fL (80.0-100.0); Mean Platelet Volume 6.7; Microcytosis Marked; Monocytes # (A) 0.5 k/uL (0-1.0); Monocytes % (A) 5 %; Neutrophils # (A) 6.9 k/uL (1.3-7.7); Neutrophils % (A) 69 %; Platelet Count 341 k/uL (150-450); RBC 5.41 m/uL (4.30-5.90); RDW 18.6 % (11.5-15.5)
[2019-11-28 22:37] LABS: Hemoglobin A1C 11.2 % (4.0-6.0)
[2019-11-29 00:48] LABS: Valproic Acid (Depakene) 71.4 ug/mL (50.0-100.0)
[2019-11-29 00:49] LABS: ALT 18 U/L (10-49); AST 18 U/L (14-35); African American GFR (CKD) 64.2 (60.0-200.0); Alkaline Phosphatase 81 U/L (41-126); Bilirubin, Conjugated <0.20 mg/dL (0.20-0.40); Chol/HDL Ratio 2.88; Cholesterol 98 mg/dL (0-200); Globulin 2.1 g/dL (1.6-3.3); LDL Cholesterol,Calculated 37.6 mg/dL (0.0-131.0); Non-African American GFR(CKD) 55.4 (60.0-200.0); Total Bilirubin 0.2 mg/dL (0.3-1.2); Total Protein 6.5 g/dL (6.2-8.2)
== END | disposition home or self-care (01) ==
LOC: LABWHC1 11:39
PROVIDERS: ATTEND Nurse Practitioner Family
DX: Z51.81 Encounter for therapeutic drug level monitoring (principal); Z79.899 Other long term (current) drug therapy
CPT/HCPCS: 36415; 80061; 80076; 80164; 82565; 83036; 84439; 84443; 84520; 85025

== ENCOUNTER 2022-01-08 01:42 | Inpatient (IN) | payer MEDICARE, OTHER ==
[2022-01-08] MEDS ORDERED: ONDANSETRON 4 MG/2 ML VIAL IVP STA (02:11)
[2022-01-08] MEDS ORDERED: MORPHINE SULFATE 4 MG/ML SYRINGE IV STA (02:11)
[2022-01-08] MEDS ORDERED: SODIUM CHLORIDE 0.9% 500 ML 500 ML IV STA (02:11)
[2022-01-08] MEDS ORDERED: SODIUM CHLORIDE 0.9% 1,000 ML IV STA ×3 (02:11→03:22)
[2022-01-08 02:12] LABS: Glucose,Whole Blood 583 mg/dL (70-110)
--- NOTE | 2022-01-08 02:12 | ED ---
Weakness HPI - General Chief complaint: Recheck/Abnormal Lab/Rx Stated complaint: High blood sugar, vomiting Time Seen by Provider: 01/08/22 02:11 Source: family, RN notes reviewed, old records reviewed Mode of arrival: wheelchair Limitations: no limitations - History of Present Illness Initial comments: This is a 36-year-old male DF for evaluation patient not feeling well persistent abdominal pain nausea vomiting diarrhea. Patient has persistent nausea vomiting here in the ER. History of diabetes significant elevated blood sugar. Patient denying any fevers no travel history or sick contacts. No rash no cough or congestion MD Complaint: generalized weakness, lack of energy, difficulty walking -: days(s) Location: generalized Severity: moderate Severity scale (1-10): 4 Quality: numbness Consistency: constant, intermittent Improves with: none Worsens with: none Context: recent illness, history of similar Associated Symptoms: confusion, loss of appetite, nausea/vomiting - Related Data Home Medications Medication Instructions Recorded Confirmed Metoprolol Tartrate [Lopressor] 150 mg PO BID 06/04/16 01/08/22 lisinopriL [Zestril] 20 mg PO DAILY 06/04/16 01/08/22 Atorvastatin [Lipitor] 10 mg PO DAILY 01/08/22 01/08/22 Atropine Sulfate [Atropine Sulfate 1 drop BOTH EYES DAILY 01/08/22 01/08/22 1%] Benztropine Mesylate [Cogentin] 1 mg PO BID 01/08/22 01/08/22 Difluprednate [Difluprednate Ophth 1 drop RIGHT EYE DIRECTED 01/08/22 01/08/22 Soln] Divalproex ER [Depakote ER] 750 mg PO HS 01/08/22 01/08/22 Finerenone [Kerendia] 20 mg PO DAILY 01/08/22 01/08/22 Fluticasone/Umeclidin/Vilanter 1 puff INHALATION RT-DAILY 01/08/22 01/08/22 [Trelegy Ellipta 200-62.5-25] Insulin Aspart (Niacinamide) 0.01 unit SQ-PUMP CONTINUOUS 01/08/22 01/08/22 [Fiasp 100 Unit/ml Vial] Lurasidone HCl [Latuda] 120 mg PO W/SUPPER 01/08/22 01/08/22 Lurasidone [Latuda] 40 mg PO W/BRKFST 01/08/22 01/08/22 Montelukast [Singulair] 10 mg PO HS 01/08/22 01/08/22 Omeprazole [PriLOSEC] 40 mg PO DAILY 01/08/22 01/08/22 Pantoprazole [Protonix] 40 mg PO DAILY 01/08/22 01/08/22 Prochlorperazine [Compazine] 10 mg PO Q8H PRN 01/08/22 01/08/22 QUEtiapine XR [SEROquel XR] 100 mg PO HS 01/08/22 01/08/22 QUEtiapine [SEROquel] 50 mg PO DAILY@1900 01/08/22 01/08/22 cloNIDine HCL [Catapres] 0.1 mg PO DAILY@0300 PRN 01/08/22 01/08/22 cloNIDine HCL [Catapres] 0.2 mg PO HS 01/08/22 01/08/22 diazePAM [Valium] 2 mg PO DAILY 01/08/22 01/08/22 diazePAM [Valium] 4 mg PO HS 01/08/22 01/08/22 prednisoLONE ACETATE 1% OPHTH 1 drops LEFT EYE BID 01/08/22 01/08/22 [Pred Forte 1%] Allergies Allergy/AdvReac Type Severity Reaction Status Date / Time adhesive tape Allergy Rash/Hives Verified 01/08/22 01:59 cefazolin Allergy Rash/Hives Verified 01/08/22 01:59 latex Allergy Rash/Hives Verified 01/08/22 01:59 metoclopramide [From Reglan] AdvReac Severe Tardive Verified 01/08/22 01:59 Dyskinesia amoxicillin [From Augmentin] AdvReac Nausea & Verified 01/08/22 01:59 Vomiting & Diarrhea clavulanic acid AdvReac Nausea & Verified 01/08/22 01:59 [From Augmentin] Vomiting & Diarrhea duloxetine [From Cymbalta] AdvReac Hallucinati Verified 01/08/22 01:59 ons pregabalin [From Lyrica] AdvReac Hallucinati Verified 01/08/22 01:59 ons Review of Systems ROS Statement: Those systems with pertinent positive or pertinent negative responses have been documented in the HPI. ROS Other: All systems not noted in ROS Statement are negative. Past Medical History Past Medical History: Diabetes Mellitus Additional Past Medical History / Comment(s): bilateral glaucoma, Tachycardia, diabetic gastropariesis, diabetic neuropathy, migraine headaches, peptic ulcer disease, retinal detachment status post multiple surgeries History of Any Multi-Drug Resistant Organisms: None Reported Additional Past Surgical History / Comment(s): eye surgery, EGDs Past Anesthesia/Blood Transfusion Reactions: No Reported Reaction Past Psychological History: Anxiety, Bipolar, Depression Smoking Status: Current every day smoker Past Alcohol Use History: None Reported Past Drug Use History: None Reported - Past Family History Father Additional Family Medical History / Comment(s): Patient does not know his father's age nor his health problems. Mother Additional Family Medical History / Comment(s): Patient does not know his mother's age but states she has fibromyalgia. Sister(s) Additional Family Medical History / Comment(s): Patient has 1 sister with no major medical problems. General Exam Limitations: no limitations General appearance: alert, in no apparent distress Head exam: Present: atraumatic, normocephalic, normal inspection Eye exam: Present: normal appearance, PERRL, EOMI. Absent: scleral icterus, conjunctival injection, periorbital swelling ENT exam: Present: normal exam, mucous membranes moist Neck exam: Present: normal inspection. Absent: tenderness, meningismus, lymphadenopathy Respiratory exam: Present: normal lung sounds bilaterally. Absent: respiratory distress, wheezes, rales, rhonchi, stridor Cardiovascular Exam: Present: normal rhythm, tachycardia, normal heart sounds. Absent: systolic murmur, diastolic murmur, rubs, gallop, clicks GI/Abdominal exam: Present: soft, normal bowel sounds. Absent: distended, tenderness, guarding, rebound, rigid Extremities exam: Present: normal inspection, full ROM, normal capillary refill. Absent: tenderness, pedal edema, joint swelling, calf tenderness Back exam: Present: normal inspection Neurological exam: Present: alert, oriented X3, CN II-XII intact Psychiatric exam: Present: normal affect, normal mood Skin exam: Present: warm, dry, intact, normal color. 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 [employer] ] Respiratory 20 20 Rate Blood Pressure 144/100 175/100 O2 Sat by Pulse 98 97 Oximetry 01/08/22 01/08/22 01/08/22 03:59 04:00 05:00 Temperature Pulse Rate 151 H 132 H 132 H Pulse Rate [ [employer] ] Respiratory 18 16 18 Rate Blood Pressure 171/103 169/96 134/70 O2 Sat by Pulse 97 97 98 Oximetry 01/08/22 01/08/22 01/08/22 07:32 08:25 09:21 Temperature Pulse Rate 123 H 122 H 131 H Pulse Rate [ [employer] ] Respiratory 20 18 20 Rate Blood Pressure 178/104 149/103 139/82 O2 Sat by Pulse 95 94 L Oximetry 01/08/22 01/08/22 01/08/22 10:17 11:28 12:46 Temperature 98.2 F Pulse Rate 128 H 139 H 134 H Pulse Rate [ [employer] ] Respiratory 18 18 18 Rate Blood Pressure 144/91 158/104 123/78 O2 Sat by Pulse 94 L 93 L 92 L Oximetry 01/08/22 01/08/22 01/08/22 14:05 15:33 16:13 Temperature 99.0 F Pulse Rate 137 H 133 H 130 H Pulse Rate [ Director Of [employer] ] Respiratory 18 18 18 Rate Blood Pressure 149/94 152/85 O2 Sat by Pulse 91 L 97 97 Oximetry - Reevaluation(s) Reevaluation #1: 01/08/22 Medical record is reviewed Patient symptoms improved here in the ER Patient informed results and questions answered EKG Findings - EKG Comments: EKG Findings:: EKG is SVT 160 QRS 76 QTC 361 Medical Decision Making - Medical Decision Making 36 male in mild distress elevated white blood cell count place on antibiotics. Patient also having significant nausea vomiting intractable with severe dehydration and elevated blood sugar. - Lab Data Result diagrams: 01/08/22 02:12 01/08/22 02:12 Lab Results 01/08/22 01/08/22 01/08/22 Range/Units 02:11 02:12 02:12 WBC 26.5 H (3.8-10.6) k/uL RBC 5.32 (4.30-5.90) m/uL Hgb 12.0 L (13.0-17.5) gm/dL Hct 38.2 L (39.0-53.0) % MCV 71.8 L (80.0-100.0) fL MCH 22.6 L (25.0-35.0) pg MCHC 31.5 (31.0-37.0) g/dL RDW 16.6 H (11.5-15.5) % Plt Count 455 H (150-450) k/uL MPV 7.7 Neutrophils % 89 % Lymphocytes % 3 % Monocytes % 5 % Eosinophils % 0 % Basophils % 0 % Neutrophils # 23.6 H (1.3-7.7) k/uL Lymphocytes # 0.7 L (1.0-4.8) k/uL Monocytes # 1.4 H (0-1.0) k/uL Eosinophils # 0.0 (0-0.7) k/uL Basophils # 0.0 (0-0.2) k/uL Hypochromasia Moderate Anisocytosis Slight Microcytosis Moderate PT 12.3 H (9.0-12.0) sec INR 1.2 H (<1.2) APTT 20.8 L (22.0-30.0) sec Sodium (137-145) mmol/L Potassium (3.5-5.1) mmol/L Chloride (98-107) mmol/L Carbon Dioxide (22-30) mmol/L Anion Gap mmol/L BUN (9-20) mg/dL Creatinine (0.66-1.25) mg/dL Est GFR (CKD-EPI)AfAm (>60 ml/min/1.73 sqM) Est GFR (CKD-EPI)NonAf (>60 ml/min/1.73 sqM) Glucose (74-99) mg/dL POC Glucose (mg/dL) 583 H (70-110) mg/dL POC Glu Chorus Master ID Froylan Hernandezle Calcium (8.4-10.2) mg/dL Phosphorus (2.5-4.5) mg/dL Magnesium (1.6-2.3) mg/dL Total Bilirubin (0.2-1.3) mg/dL AST (17-59) U/L ALT (4-49) U/L Alkaline Phosphatase (38-126) U/L Troponin I (0.000-0.034) ng/mL NT-Pro-B Natriuret Pep pg/mL Total Protein (6.3-8.2) g/dL Albumin (3.5-5.0) g/dL TSH (0.465-4.680) mIU/L Gastric Occult Blood (Negative) 01/08/22 01/08/22 01/08/22 Range/Units 02:12 02:12 02:12 WBC (3.8-10.6) k/uL RBC (4.30-5.90) m/uL Hgb (13.0-17.5) gm/dL Hct (39.0-53.0) % MCV (80.0-100.0) fL MCH (25.0-35.0) pg MCHC (31.0-37.0) g/dL RDW (11.5-15.5) % Plt Count (150-450) k/uL MPV Neutrophils % % Lymphocytes % % Monocytes % % Eosinophils % % Basophils % % Neutrophils # (1.3-7.7) k/uL Lymphocytes # (1.0-4.8) k/uL Monocytes # (0-1.0) k/uL Eosinophils # (0-0.7) k/uL Basophils # (0-0.2) k/uL Hypochromasia Anisocytosis Microcytosis PT (9.0-12.0) sec INR (<1.2) APTT (22.0-30.0) sec Sodium 132 L (137-145) mmol/L Potassium 4.8 (3.5-5.1) mmol/L Chloride 87 L (98-107) mmol/L Carbon Dioxide 28 (22-30) mmol/L Anion Gap 17 mmol/L BUN 33 H (9-20) mg/dL Creatinine 2.41 H (0.66-1.25) mg/dL Est GFR (CKD-EPI)AfAm 39 (>60 ml/min/1.73 sqM) Est GFR (CKD-EPI)NonAf 33 (>60 ml/min/1.73 sqM) Glucose 598 H* (74-99) mg/dL POC Glucose (mg/dL) (70-110) mg/dL POC Glu Chorus Master ID Calcium 10.2 (8.4-10.2) mg/dL Phosphorus 4.3 (2.5-4.5) mg/dL Magnesium 1.6 (1.6-2.3) mg/dL Total Bilirubin 0.4 (0.2-1.3) mg/dL AST 21 (17-59) U/L ALT 22 (4-49) U/L Alkaline Phosphatase 131 H (38-126) U/L Troponin I 0.021 (0.000-0.034) ng/mL NT-Pro-B Natriuret Pep 1830 pg/mL Total Protein 7.4 (6.3-8.2) g/dL Albumin 4.7 (3.5-5.0) g/dL TSH 1.310 (0.465-4.680) mIU/L Gastric Occult Blood (Negative) 01/08/22 01/08/22 Range/Units 02:28 04:12 WBC (3.8-10.6) k/uL RBC (4.30-5.90) m/uL Hgb (13.0-17.5) gm/dL Hct (39.0-53.0) % MCV (80.0-100.0) fL MCH (25.0-35.0) pg MCHC (31.0-37.0) g/dL RDW (11.5-15.5) % Plt Count (150-450) k/uL MPV Neutrophils % % Lymphocytes % % Monocytes % % Eosinophils % % Basophils % % Neutrophils # (1.3-7.7) k/uL Lymphocytes # (1.0-4.8) k/uL Monocytes # (0-1.0) k/uL Eosinophils # (0-0.7) k/uL Basophils # (0-0.2) k/uL Hypochromasia Anisocytosis Microcytosis PT (9.0-12.0) sec INR (<1.2) APTT (22.0-30.0) sec Sodium (137-145) mmol/L Potassium (3.5-5.1) mmol/L Chloride (98-107) mmol/L Carbon Dioxide (22-30) mmol/L Anion Gap mmol/L BUN (9-20) mg/dL Creatinine (0.66-1.25) mg/dL Est GFR (CKD-EPI)AfAm (>60 ml/min/1.73 sqM) Est GFR (CKD-EPI)NonAf (>60 ml/min/1.73 sqM) Glucose (74-99) mg/dL POC Glucose (mg/dL) 473 H (70-110) mg/dL POC Glu Chorus Master ID Grzegorz Velazquez Calcium (8.4-10.2) mg/dL Phosphorus (2.5-4.5) mg/dL Magnesium (1.6-2.3) mg/dL Total Bilirubin (0.2-1.3) mg/dL AST (17-59) U/L ALT (4-49) U/L Alkaline Phosphatase (38-126) U/L Troponin I (0.000-0.034) ng/mL NT-Pro-B Natriuret Pep pg/mL Total Protein (6.3-8.2) g/dL Albumin (3.5-5.0) g/dL TSH (0.465-4.680) mIU/L Gastric Occult Blood Positive (Negative) - EKG Data -: EKG Interpreted by Me (EKG shows SVT 160 QRS 76 QTC 361) - Radiology Data Radiology results: report reviewed (Chest x-rays negative for acute disease), image reviewed Disposition Clinical Impression: Nausea & vomiting, Diabetic gastroparesis associated with type 1 diabetes mellitus, Hyperglycemia, Leukocytosis, Tachycardia, Hypertension Disposition: ADMITTED IP TO THIS HOSP Condition: Fair Is patient prescribed a controlled substance at d/c from ED?: No Time of Disposition: 04:15
[2022-01-08 02:39] LABS: INR 1.2 (<1.2); Prothrombin Time 12.3 sec (9.0-12.0)
[2022-01-08 02:42] LABS: Albumin 4.7 g/dL (3.5-5.0); Calcium 10.2 mg/dL (8.4-10.2); Magnesium 1.6 mg/dL (1.6-2.3); Phosphorus 4.3 mg/dL (2.5-4.5); Potassium 4.8 mmol/L (3.5-5.1); Total Bilirubin 0.4 mg/dL (0.2-1.3); Total Protein 7.4 g/dL (6.3-8.2)
[2022-01-08 02:43] LABS: Anisocytosis Slight; Basophils % (A) 0 %; Eosinophils % (A) 0 %; HCT 38.2 % (39.0-53.0); Hypochromasia Moderate; Lymphocytes # (A) 0.7 k/uL (1.0-4.8); Lymphocytes % (A) 3 %; MCH 22.6 pg (25.0-35.0); MCHC 31.5 g/dL (31.0-37.0); MCV 71.8 fL (80.0-100.0); Mean Platelet Volume 7.7; Microcytosis Moderate; Monocytes # (A) 1.4 k/uL (0-1.0); Monocytes % (A) 5 %; Neutrophils # (A) 23.6 k/uL (1.3-7.7); Neutrophils % (A) 89 %; Platelet Count 455 k/uL (150-450); RBC 5.32 m/uL (4.30-5.90); RDW 16.6 % (11.5-15.5); WBC 26.5 k/uL (3.8-10.6)
[2022-01-08 02:46] LABS: Partial Thromboplastin Time 20.8 sec (22.0-30.0)
[2022-01-08] MEDS ORDERED: INSULIN REGULAR 100 UNIT/ML VIAL (IM/SQ) SQ ONE (03:22)
[2022-01-08] MEDS ORDERED: INSULIN REGULAR 100 UNIT/ML VIAL (IV) IV ONE (03:22)
[2022-01-08 04:13] LABS: Glucose,Whole Blood 473 mg/dL (70-110)
[2022-01-08] MEDS ORDERED: NALOXONE 0.4 MG/ML 1 ML VIAL IV PRN (04:13)
[2022-01-08] MEDS ORDERED: LEVOFLOXACIN 750MG-D5W PMX 750 MG in DEXTROSE/WATER 1 150ML.BAG IVPB STA (04:16)
[2022-01-08] MEDS ORDERED: METOPROLOL TARTRATE 5 MG/5 ML VIAL IVP STA ×2 (04:31→06:49)
[2022-01-08] MEDS ORDERED: HYDROmorphone 1 MG/ML 1 ML SYRINGE IVP STA (04:36)
[2022-01-08] MEDS ORDERED: LORazepam 2 MG/ML INJ IV PRN (04:36)
[2022-01-08] MEDS ORDERED: LORazepam 2 MG/ML INJ IV STA (04:36)
[2022-01-08] MEDS ORDERED: cloNIDine 0.2 MG/24HR PATCH TRANSDERM SCH (04:45)
[2022-01-08 06:48] LABS: Glucose,Whole Blood 391 mg/dL (70-110)
--- NOTE | 2022-01-08 06:55 | XR ---
EXAMINATION TYPE: XR chest 1V portable DATE OF EXAM: 01/08/2022 COMPARISON: 04/10/2019 HISTORY: Cough TECHNIQUE: Single view FINDINGS: Heart and mediastinum are normal. Lungs are clear. Diaphragm is normal. Bony thorax appears normal. IMPRESSION: Normal chest. No change
[2022-01-08] MEDS: SODIUM CHLORIDE 0.9% 1,000 ML IV SCH ×3 (07:04→19:55)
[2022-01-08 08:29] LABS: Glucose,Whole Blood 311 mg/dL (70-110)
[2022-01-08] MEDS: MORPHINE SULFATE 4 MG/ML SYRINGE IV PRN (08:32)
[2022-01-08] MEDS: PROCHLORPERAZINE INJ 10 MG/2 ML VIAL IVP PRN ×4 (08:32→23:32)
[2022-01-08] MEDS ORDERED: PANTOPRAZOLE 40 MG/10 ML VIAL IV SCH (09:00)
[2022-01-08 09:10] LABS: Appearance,Urine Clear (Clear); Bilirubin,Urine Negative (Negative); Blood,Urine Negative (Negative); Color,Urine Light Yellow; Glucose,Urine (UA) 4+ (Negative); Ketones,Urine 1+ (Negative); Leukocyte Esterase,Urine Negative (Negative); Nitrite,Urine Negative (Negative); PH, Urine 5.5 (5.0-8.0); Protein,Urine Trace (Negative); Specific Gravity,Urine 1.024 (1.001-1.035); Urobilinogen,Urine <2.0 mg/dL (<2.0)
--- NOTE | 2022-01-08 11:13 | CT ---
EXAMINATION TYPE: CT chest wo con CT DLP: 347.8 mGycm, Automated exposure control for dose reduction was used. DATE OF EXAM: 01/08/2022 10:56 AM COMPARISON: Chest radiograph from same day. CLINICAL INDICATION:Male, 36 years old with history of cap, CAP; Dehydration, Hyperglycemia TECHNIQUE: Multiple axial images were obtained through the chest. Sagittal and coronal reformats were created for review. Contrast used: none. Oral contrast used: none. FINDINGS: LUNGS/ PLEURA: No evidence of focal consolidation, trace right pleural effusion. No evidence of pneum othorax. AIRWAY: Patent and unremarkable. HEART: Size within normal limits. MEDIASTINUM: No gross evidence of adenopathy. Long segment (at least 15.0 cm of circumferential esoph ageal wall thickening up to 7 mm in thickness extending from the proximal esophagus to the stomach. T here is a small to moderate hiatal hernia. VASCULATURE: No aortic aneurysm. MUSCULOSKELETAL: No acute osseous abnormalities SOFT TISSUES/LYMPH NODES: Unremarkable. LOWER NECK: No significant findings. UPPER ABDOMEN: Surgical clips at the gastroesophageal junction. IMPRESSION: 1. No evidence for focal consolidation to suggest pneumonia. 2. Long segment of circumferential esophageal wall thickening, running suggest esophagitis further w orkup and direct visualization recommended. 3. Small or moderate hiatal hernia present.
[2022-01-08] MEDS: HYDROmorphone 1 MG/ML 1 ML SYRINGE IVP PRN ×4 (11:34→23:32)
[2022-01-08 12:52] LABS: Glucose,Whole Blood 278 mg/dL (70-110)
[2022-01-08] MEDS: FLUCONAZOLE IN NACL,ISO-OSM 200 MG in SALINE 1 100ML.BAG IVPB SCH (15:28)
[2022-01-08] MEDS: ONDANSETRON 4 MG/2 ML VIAL IVP PRN (15:31)
[2022-01-08] MEDS: [UNRECOGNIZED DRUG - OTHER] MISCELLANE SCH (15:34)
[2022-01-08] MEDS: INSULIN ASPART 100 UNIT/ML MISCELLANE SCH (15:34)
[2022-01-08 16:12] LABS: Glucose,Whole Blood 266 mg/dL (70-110)
[2022-01-08 17:14] LABS: Glucose,Whole Blood 254 mg/dL (70-110)
[2022-01-08] MEDS ORDERED: LURASIDONE 40 MG TAB PO SCH (17:30)
[2022-01-08] MEDS: NON FORMULARY DRUG (Difluprednate [Difluprednate Ophth Soln] 5 ML Ml) RIGHT EYE SCH ×3 (17:32→23:03)
[2022-01-08] MEDS ORDERED: DEXTROSE 50% SYRINGE 50 ML IVP PRN ×2 (18:14)
[2022-01-08] MEDS: INSULIN ASPART (NovoLOG) 100 UNIT/ML VIAL SQ SCH (18:52)
[2022-01-08 19:31] LABS: Glucose,Whole Blood 320 mg/dL (70-110)
[2022-01-08] MEDS: diazePAM 2 MG TAB PO SCH (20:22)
[2022-01-08] MEDS: PANTOPRAZOLE 40 MG/10 ML VIAL IVP SCH (20:23)
[2022-01-08] MEDS: METOPROLOL TARTRATE 50 MG TAB PO SCH (20:23)
[2022-01-08] MEDS: LURASIDONE 80 MG TAB PO SCH (20:31)
[2022-01-08] MEDS: BENZTROPINE MESYLATE 1 MG TAB PO SCH (22:00)
[2022-01-08] MEDS: DIVALPROEX ER 250 MG TAB.ER.24H PO SCH (22:00)
[2022-01-08] MEDS: prednisoLONE ACETATE 1% OPHTH DROPS 5 ML BTL LEFT EYE SCH (22:00)
[2022-01-08] MEDS: MONTELUKAST 10 MG TAB PO SCH (22:00)
--- NOTE | 2022-01-08 22:49 | P.CONS ---
History of Present Illness - Reason for Consult Consult date: 01/08/22 Leukocytosis Requesting physician: Wisam Vickers - Chief Complaint Epigastric abdominal pain and vomiting x days - History of Present Illness Patient is a 36-year-old male with a past medical history significant for insulin-dependent diabetes mellitus history of diabetic foot infection/osteomyelitis patient also history of asthma and apparently is seem to have developed oral thrush recently because of his steroid inhalers already the patient was started on nystatin swish and swallow however the patient has developed nausea vomiting and abdominal pain associated with it over the patient has been brought into the hospital patient denies having any fever or any chills denies any headache no chest pain or shortness of breath or cough has been complaining of mostly epigastric area pain unable to quantify it any further with no radiation associated nausea and vomiting no diarrhea no urinary symptoms patient on presentation to the hospital have white count of 26.5 did have elevated BUN and creatinine blood sugar was 598 liver enzymes are normal urine was negative patient did have a CT of the chest no evidence for focal consolidation to suggest pneumonia there was a long segment of circumferential esophageal wall thickening suggestive of esophagitis patient was admitted to the hospital infectious disease was consulted for further management Review of Systems Positive point has been mentioned in the HPI rest of the systems are negative Past Medical History Past Medical History: Diabetes Mellitus Additional Past Medical History / Comment(s): bilateral glaucoma, Tachycardia, diabetic gastropariesis, diabetic neuropathy, migraine headaches, peptic ulcer disease, retinal detachment status post multiple surgeries History of Any Multi-Drug Resistant Organisms: None Reported Additional Past Surgical History / Comment(s): eye surgery, EGDs Past Anesthesia/Blood Transfusion Reactions: No Reported Reaction Past Psychological History: Anxiety, Bipolar, Depression Smoking Status: Current every day smoker Past Alcohol Use History: None Reported Past Drug Use History: None Reported - Past Family History Father Additional Family Medical History / Comment(s): Patient does not know his father's age nor his health problems. Mother Additional Family Medical History / Comment(s): Patient does not know his mother's age but states she has fibromyalgia. Sister(s) Additional Family Medical History / Comment(s): Patient has 1 sister with no major medical problems. Medications and Allergies Home Medications Medication Instructions Recorded Confirmed Type Metoprolol Tartrate [Lopressor] 150 mg PO BID 06/04/16 01/08/22 History lisinopriL [Zestril] 20 mg PO DAILY 06/04/16 01/08/22 History Atorvastatin [Lipitor] 10 mg PO DAILY 01/08/22 01/08/22 History Atropine Sulfate [Atropine Sulfate 1 drop BOTH EYES DAILY 01/08/22 01/08/22 History 1%] Benztropine Mesylate [Cogentin] 1 mg PO BID 01/08/22 01/08/22 History Difluprednate [Difluprednate Ophth 1 drop RIGHT EYE DIRECTED 01/08/22 01/08/22 History Soln] Divalproex ER [Depakote ER] 750 mg PO HS 01/08/22 01/08/22 History Fluticasone/Umeclidin/Vilanter 1 puff INHALATION RT-DAILY 01/08/22 01/08/22 History [Maximilian Ellipta 200-62.5-25] Insulin Aspart (Niacinamide) 0.01 unit SQ-PUMP CONTINUOUS 01/08/22 01/08/22 History [Fiasp 100 Unit/ml Vial] Lurasidone HCl [Latuda] 120 mg PO W/SUPPER 01/08/22 01/08/22 History Lurasidone [Latuda] 40 mg PO W/BRKFST 01/08/22 01/08/22 History Montelukast [Singulair] 10 mg PO HS 01/08/22 01/08/22 History Prochlorperazine [Compazine] 10 mg PO Q8H PRN 01/08/22 01/08/22 History QUEtiapine XR [SEROquel XR] 100 mg PO HS 01/08/22 01/08/22 History QUEtiapine [SEROquel] 50 mg PO DAILY@1900 01/08/22 01/08/22 History diazePAM [Valium] 2 mg PO DAILY 01/08/22 01/08/22 History diazePAM [Valium] 4 mg PO HS 01/08/22 01/08/22 History prednisoLONE ACETATE 1% OPHTH 1 drops LEFT EYE BID 01/08/22 01/08/22 History [Pred Forte 1%] Fluconazole [Diflucan] 100 mg PO DAILY 14 Days #14 tab 01/13/22 Rx Nicotine 14Mg/24Hr Patch [Habitrol] 1 patch TRANSDERM DAILY 30 Days 01/13/22 Rx #30 patch Omeprazole [PriLOSEC] 40 mg PO BID #0 01/13/22 01/08/22 Rx cloNIDine 0.2 MG/24HR PATCH 1 patch TRANSDERM Q7D 90 Days #12 01/13/22 Rx [Catapres-TTS] patch Allergies Allergy/AdvReac Type Severity Reaction Status Date / Time adhesive tape Allergy Rash/Hives Verified 01/08/22 01:59 cefazolin Allergy Rash/Hives Verified 01/08/22 01:59 latex Allergy Rash/Hives Verified 01/08/22 01:59 metoclopramide [From Reglan] AdvReac Severe Tardive Verified 01/08/22 01:59 Dyskinesia amoxicillin [From Augmentin] AdvReac Nausea & Verified 01/08/22 01:59 Vomiting & Diarrhea clavulanic acid AdvReac Nausea & Verified 01/08/22 01:59 [From Augmentin] Vomiting & Diarrhea duloxetine [From Cymbalta] AdvReac Hallucinati Verified 01/08/22 01:59 ons pregabalin [From Lyrica] AdvReac Hallucinati Verified 01/08/22 01:59 ons Physical Exam Vitals: Vital Signs Temp Pulse Pulse Resp BP Pulse Ox 01/08/22 12:46 98.2 F 134 H 18 123/78 92 L 01/08/22 11:28 139 H 18 158/104 93 L 01/08/22 10:17 128 H 18 144/91 94 L 01/08/22 09:21 131 H 20 139/82 94 L 01/08/22 08:25 122 H 18 149/103 95 01/08/22 07:32 123 H 20 178/104 01/08/22 05:00 132 H 18 134/70 98 01/08/22 04:00 132 H 16 169/96 97 01/08/22 03:59 151 H 18 171/103 97 01/08/22 02:59 151 H 20 175/100 97 01/08/22 02:13 154 H 01/08/22 01:57 97.8 F 166 H 20 144/100 98 Intake and Output 01/07/22 01/08/22 01/08/22 22:59 06:59 14:59 Other: Weight 79.379 kg GENERAL DESCRIPTION: Middle-aged male lying in bed, no distress. No tachypnea or accessory muscle of respiration use. HEENT: Shows Pallor , no scleral icterus. Oral mucous membrane is dry. No phar yngeal erythema or thrush NECK: Trachea central, no thyromegaly. LUNGS: Unlabored breathing. Clear to auscultation anteriorly. No wheeze or crackle. HEART: S1, S2, regular rate and rhythm. No loud murmur ABDOMEN: Soft, mild epigastric tenderness , no guarding or rigidity, no organomegaly EXTREMITIES: No edema of feet. SKIN: No rash, no masses palpable. NEUROLOGICAL: The patient is awake, alert, oriented x3, mood and affect normal. Results CBC & Chem 7: 01/12/22 04:52 01/12/22 04:52 Labs: Abnormal Lab Results - Last 24 Hours (Table) 01/08/22 01/08/22 01/08/22 Range/Units 02:11 02:12 02:12 WBC 26.5 H (3.8-10.6) k/uL Hgb 12.0 L (13.0-17.5) gm/dL Hct 38.2 L (39.0-53.0) % MCV 71.8 L (80.0-100.0) fL MCH 22.6 L (25.0-35.0) pg RDW 16.6 H (11.5-15.5) % Plt Count 455 H (150-450) k/uL Neutrophils # 23.6 H (1.3-7.7) k/uL Lymphocytes # 0.7 L (1.0-4.8) k/uL Monocytes # 1.4 H (0-1.0) k/uL PT 12.3 H (9.0-12.0) sec INR 1.2 H (<1.2) APTT 20.8 L (22.0-30.0) sec Sodium (137-145) mmol/L Chloride (98-107) mmol/L BUN (9-20) mg/dL Creatinine (0.66-1.25) mg/dL Glucose (74-99) mg/dL POC Glucose (mg/dL) 583 H (70-110) mg/dL Alkaline Phosphatase (38-126) U/L Urine Protein (Negative) Urine Glucose (UA) (Negative) Urine Ketones (Negative) 01/08/22 01/08/22 01/08/22 Range/Units 02:12 04:12 06:47 WBC (3.8-10.6) k/uL Hgb (13.0-17.5) gm/dL Hct (39.0-53.0) % MCV (80.0-100.0) fL MCH (25.0-35.0) pg RDW (11.5-15.5) % Plt Count (150-450) k/uL Neutrophils # (1.3-7.7) k/uL Lymphocytes # (1.0-4.8) k/uL Monocytes # (0-1.0) k/uL PT (9.0-12.0) sec INR (<1.2) APTT (22.0-30.0) sec Sodium 132 L (137-145) mmol/L Chloride 87 L (98-107) mmol/L BUN 33 H (9-20) mg/dL Creatinine 2.41 H (0.66-1.25) mg/dL Glucose 598 H* (74-99) mg/dL POC Glucose (mg/dL) 473 H 391 H (70-110) mg/dL Alkaline Phosphatase 131 H (38-126) U/L Urine Protein (Negative) Urine Glucose (UA) (Negative) Urine Ketones (Negative) 01/08/22 01/08/22 01/08/22 Range/Units 08:25 08:28 12:50 WBC (3.8-10.6) k/uL Hgb (13.0-17.5) gm/dL Hct (39.0-53.0) % MCV (80.0-100.0) fL MCH (25.0-35.0) pg RDW (11.5-15.5) % Plt Count (150-450) k/uL Neutrophils # (1.3-7.7) k/uL Lymphocytes # (1.0-4.8) k/uL Monocytes # (0-1.0) k/uL PT (9.0-12.0) sec INR (<1.2) APTT (22.0-30.0) sec Sodium (137-145) mmol/L Chloride (98-107) mmol/L BUN (9-20) mg/dL Creatinine (0.66-1.25) mg/dL Glucose (74-99) mg/dL POC Glucose (mg/dL) 311 H 278 H (70-110) mg/dL Alkaline Phosphatase (38-126) U/L Urine Protein Trace H (Negative) Urine Glucose (UA) 4+ H (Negative) Urine Ketones 1+ H (Negative) Assessment and Plan (1) Esophagitis Status: Acute Code(s): K20.90 - ESOPHAGITIS, UNSPECIFIED WITHOUT BLEEDING SNOMED Code(s): 63368363 (2) Leukocytosis Status: Acute Code(s): D72.829 - ELEVATED WHITE BLOOD CELL COUNT, UNSPECIFIED SNOMED Code(s): 859938740 Plan: 1patient present to hospital with epigastric pain nausea and vomiting in this patient has been diagnosed in the outpatient setting with rash and apparently seem to have a problem with keeping it down and developing pneumonia with evidence of a long segment of esophagitis concerning for possibly Monik esophagitis with likely etiology. 2Diflucan 200 mg IV daily and will see response. 3we will monitor his white count and culture closely. We will follow on clinical condition and cultures to further adjust medication if needed Thank you for this consultation will follow this patient along with you Time with Patient: Greater than 30
--- NOTE | 2022-01-08 23:28 | HP ---
HISTORY AND PHYSICAL HISTORY OF PRESENT ILLNESS: A 36-year-old white male, who was admitted after taking a bottle of thrush medicine at home because he has been sick for 14 days, nausea, vomiting, some acute confusion, appears to be prerenal azotemia due to dehydration and leukocytosis secondary to some kind of infection, maybe significant thrush, and restarted back on thrush medicine since he has not taken his medicines in 8 to 10 days due to severe nausea, vomiting. He has a gastric pump in place. HOME MEDICINES: Include: 1. Lipitor 80 mg daily. 2. Neurontin 800 t.i.d. 3. Xalatan 1 drop both eyes. 4. Lopressor 150 b.i.d. 5. Zantac 150 b.i.d. 6. Timolol 1 drop both eyes b.i.d. 7. Zestril 20 mg daily. 8. Catapres patch 0.1 mg daily. 9. Lantus 42 units subcu and insulin pump for fast acting. 10.Zofran 4 mg q.6. 11.Maxalt 10 mg b.i.d. for migraines. ALLERGIES: Please see list. PAST MEDICAL HISTORY: Bilateral glaucoma, tachycardia, diabetic gastroparesis, neuropathy, migraines, peptic ulcer disease, retinal detachment, anxiety, bipolar depression, current everyday smoker. FAMILY HISTORY: Father, unsure. Mother, fibromyalgia. Sister, negative. PHYSICAL EXAMINATION: GENERAL: He is tachycardic, heart rates now in 140s. He has not taken his Catapres. We are going to put him on a Catapres patch back at this time, monitor his blood pressure. He has given appropriate answers. He is legally blind. He appears awake and alert. HEENT: Normocephalic, atraumatic. INTEGUMENT: Mild decreased skin turgor. LUNGS: Essentially clear. CARDIOVASCULAR: Tachycardic. No murmurs, rubs, or gallops. GI: Normal bowel sounds. Mildly distended. Tenderness. NEUROLOGIC: Cranial nerves intact. PSYCH: Fair mood and affect. SKIN: Warm, dry intact. VITAL SIGNS: Temperature 97.8, pulse is 160, respiratory rate 18 to 20, blood pressure 144/100. LABORATORY DATA: White count is 26.5, hemoglobin is 12.0, BUN is 33, creatinine 2.41, sodium 132, platelets 598. INR 1.2. Sugars were in the 500s, down in the 300s. TSH 1.3, total protein 7.4, AST 21, ALT 22. ASSESSMENT: 1. Sepsis, unclear etiology. 2. Tachycardia secondary to sepsis and being off medications. 3. Gastric occult blood positive. We are going to get a Surgery versus GI consult for EGD. A CAT scan of the chest shows severe esophagitis with thickening of the esophageal wall, start him on thrush medicine. 4. Diabetic gastroparesis with a pump. 5. Type 1 diabetes mellitus. 6. Leukocytosis, secondary to probable severe thrush or viral, possibly place him on IV Diflucan per Infectious Disease, Pulmonary, Cardiology due to elevated BNP and will do an echo. Fluid rehydrate him due to prerenal azotemia and dehydration. MMODL / IJN: [id number] /
[2022-01-08] MEDS: NICOTINE 14MG/24HR PATCH TRANSDERM SCH (23:32)
[2022-01-09] MEDS: NON FORMULARY DRUG (Difluprednate [Difluprednate Ophth Soln] 5 ML Ml) RIGHT EYE SCH ×6 (01:39→22:20)
[2022-01-09] MEDS: ONDANSETRON 4 MG/2 ML VIAL IVP PRN ×3 (03:31→18:32)
[2022-01-09] MEDS: HYDROmorphone 1 MG/ML 1 ML SYRINGE IVP PRN ×5 (03:34→21:32)
[2022-01-09] MEDS: SODIUM CHLORIDE 0.9% 1,000 ML IV SCH ×3 (04:17→18:20)
[2022-01-09 06:20] LABS: Glucose,Whole Blood 318 mg/dL (70-110)
[2022-01-09] MEDS: INSULIN ASPART (NovoLOG) 100 UNIT/ML VIAL SQ SCH ×4 (06:31→21:33)
--- NOTE | 2022-01-09 08:59 | P.CRDCN ---
History of Present Illness History of present illness: This is Dr. Costa dictating a consult on this patient The patient was interviewed and examined IMPRESSION / ASSESSMENT: Sinus tachycardia No evidence for acute myocardial infarction Brittle diabetes, on atorvastatin and Lopressor and Zestril Unable to keep his medications down on account of recurrent severe nausea vomiting Being treated for oral thrush Circumferential esophageal thickening PLAN: From a cardiac standpoint his medication should be resumed but he will need treatment for his nausea so that he can keep administered He sees a hand cooper helper in [place] I want to get his records and I spoke to the charge nurse about it 2-D echo and Doppler study From a cardiac standpoint he seems to be stable he needs hydration and management of nausea vomiting and thrush Will sign off HPI This and has a history of thrush It took the mouthwash and that made him very sick and threw up He has not taken his medications for 8-10 days due to severe nausea and vomiting Patient was admitted with intractable vomiting and abdominal discomfort He was unable to keep his food down not take his pills He normally takes metoprolol As a result he had elevated heart rates His twelve-lead EKG shows sinus tachycardia without any ST abnormalities Troponins are normal This is a long segment of circumferential esophageal wall thickening consistent with esophagitis, consistent with his symptomatology ROS: No fever chills or rigors, no cough, phlegm or expectoration, no nausea, vomiting or diarrhea, no hematuria, dysuria, no musculoskeletal complaints, no strokes or seizures, no skin lesions. EXAMINATION: 138/84, 153/79 Pulse rate 125 Afebrile On examination the sounds are clear no rhonchi no crackles Heart sounds are regular Patient is resting comfortably in bed and he is uncomfortable he still nauseous Soft abdomen No JVD No lower extremity edema His mucosae are dry REVIEW OF LABS, ECG & MEDICAL DATA labs are reviewed White count 26,000, hemoglobin 12, platelet count 455,000 Leftward shift with an elevated neutrophil Low lymphocytes Low sodium 132, potassium 4.8 Elevated glucose Creatinine 2.4 with a BUN of 33 NT proBNP 1830 TSH normal at 1.3 Past Medical History Past Medical History: Diabetes Mellitus Additional Past Medical History / Comment(s): bilateral glaucoma, Tachycardia, diabetic gastropariesis, diabetic neuropathy, migraine headaches, peptic ulcer disease, retinal detachment status post multiple surgeries History of Any Multi-Drug Resistant Organisms: None Reported Additional Past Surgical History / Comment(s): eye surgery, EGDs Past Anesthesia/Blood Transfusion Reactions: No Reported Reaction Past Psychological History: Anxiety, Bipolar, Depression Smoking Status: Current every day smoker Past Alcohol Use History: None Reported Past Drug Use History: None Reported - Past Family History Father Additional Family Medical History / Comment(s): Patient does not know his father's age nor his health problems. Mother Additional Family Medical History / Comment(s): Patient does not know his mother's age but states she has fibromyalgia. Sister(s) Additional Family Medical History / Comment(s): Patient has 1 sister with no major medical problems. Medications and Allergies Home Medications Medication Instructions Recorded Confirmed Type Metoprolol Tartrate [Lopressor] 150 mg PO BID 06/04/16 01/08/22 History lisinopriL [Zestril] 20 mg PO DAILY 06/04/16 01/08/22 History Atorvastatin [Lipitor] 10 mg PO DAILY 01/08/22 01/08/22 History Atropine Sulfate [Atropine Sulfate 1 drop BOTH EYES DAILY 01/08/22 01/08/22 Hist ory 1%] Benztropine Mesylate [Cogentin] 1 mg PO BID 01/08/22 01/08/22 History Difluprednate [Difluprednate Ophth 1 drop RIGHT EYE DIRECTED 01/08/22 01/08/22 History Soln] Divalproex ER [Depakote ER] 750 mg PO HS 01/08/22 01/08/22 History Finerenone [Kerendia] 20 mg PO DAILY 01/08/22 01/08/22 History Fluticasone/Umeclidin/Vilanter 1 puff INHALATION RT-DAILY 01/08/22 01/08/22 History [Trelegy Ellipta 200-62.5-25] Insulin Aspart (Niacinamide) 0.01 unit SQ-PUMP CONTINUOUS 01/08/22 01/08/22 History [Fiasp 100 Unit/ml Vial] Lurasidone HCl [Latuda] 120 mg PO W/SUPPER 01/08/22 01/08/22 History Lurasidone [Latuda] 40 mg PO W/BRKFST 01/08/22 01/08/22 History Montelukast [Singulair] 10 mg PO HS 01/08/22 01/08/22 History Omeprazole [PriLOSEC] 40 mg PO DAILY 01/08/22 01/08/22 History Pantoprazole [Protonix] 40 mg PO DAILY 01/08/22 01/08/22 History Prochlorperazine [Compazine] 10 mg PO Q8H PRN 01/08/22 01/08/22 History QUEtiapine XR [SEROquel XR] 100 mg PO HS 01/08/22 01/08/22 History QUEtiapine [SEROquel] 50 mg PO DAILY@1900 01/08/22 01/08/22 History cloNIDine HCL [Catapres] 0.1 mg PO DAILY@0300 PRN 01/08/22 01/08/22 History cloNIDine HCL [Catapres] 0.2 mg PO HS 01/08/22 01/08/22 History diazePAM [Valium] 2 mg PO DAILY 01/08/22 01/08/22 History diazePAM [Valium] 4 mg PO HS 01/08/22 01/08/22 History prednisoLONE ACETATE 1% OPHTH 1 drops LEFT EYE BID 01/08/22 01/08/22 History [Pred Forte 1%] Allergies Allergy/AdvReac Type Severity Reaction Status Date / Time adhesive tape Allergy Rash/Hives Verified 01/08/22 01:59 cefazolin Allergy Rash/Hives Verified 01/08/22 01:59 latex Allergy Rash/Hives Verified 01/08/22 01:59 metoclopramide [From Reglan] AdvReac Severe Tardive Verified 01/08/22 01:59 Dyskinesia amoxicillin [From Augmentin] AdvReac Nausea & Verified 01/08/22 01:59 Vomiting & Diarrhea clavulanic acid AdvReac Nausea & Verified 01/08/22 01:59 [From Augmentin] Vomiting & Diarrhea duloxetine [From Cymbalta] AdvReac Hallucinati Verified 01/08/22 01:59 ons pregabalin [From Lyrica] AdvReac Hallucinati Verified 01/08/22 01:59 ons Physical Exam Vitals: Vital Signs Temp Pulse Pulse Resp BP BP Pulse Ox 01/09/22 07:00 97.7 F 97 18 153/84 92 L 01/09/22 03:30 98.2 F 98 18 153/79 92 L 01/08/22 20:00 125 H 17 01/08/22 19:35 98.5 F 125 H 17 160/85 94 L 01/08/22 17:15 98.7 F 133 H 16 138/84 93 L 01/08/22 16:13 99.0 F 130 H 18 152/85 97 01/08/22 15:33 133 H 18 97 01/08/22 14:05 137 H 18 149/94 91 L 01/08/22 12:46 98.2 F 134 H 18 123/78 92 L 01/08/22 11:28 139 H 18 158/104 93 L 01/08/22 10:17 128 H 18 144/91 94 L 01/08/22 09:21 131 H 20 139/82 94 L Intake and Output 01/08/22 01/09/22 01/09/22 22:59 06:59 14:59 Intake Total 1000 Output Total 500 575 Balance -500 425 Intake: Intake, IV Titration 1000 Amount Sodium Chloride 0.9% 1, 1000 000 ml @ 130 mls/hr IV . Q7H42M [facility] Rx#:[id number] Output: Urine 500 575 Other: Voiding Method Urinal # Voids 1 Weight 79.379 kg Results 01/08/22 02:12 01/08/22 02:12 Current Medications Generic Name Dose Route Start Last Admin Trade Name Freq PRN Reason Stop Dose Admin Atorvastatin Calcium 10 mg 01/09/22 09:00 Atorvastatin 10 Mg Tab PO DAILY [facility] Atropine Sulfate 1 drops 01/09/22 09:00 Atropine Ophth Soln 1% 5ml Btl BOTH EYES DAILY [facility] Benztropine Mesylate 1 mg 01/08/22 21:00 01/08/22 22:00 Benztropine Mesylate 1 Mg Tab PO Not Given BID FELIX Clonidine HCl 1 patch 01/08/22 04:45 01/08/22 04:59 Clonidine 0.2 Mg/24hr Patch TRANSDERM 1 patch Q7D FELIX Administration Dextrose/Water 25 ml 01/08/22 18:14 Dextrose 50% Syringe 50 Ml IVP PER PROTOCOL PRN Hypoglycemia Protocol Dextrose/Water 50 ml 01/08/22 18:14 Dextrose 50% Syringe 50 Ml IVP PER PROTOCOL PRN Hypoglycemia Protocol Diazepam 2 mg 01/09/22 09:00 Diazepam 2 Mg Tab PO DAILY [facility] Diazepam 4 mg 01/08/22 21:00 01/08/22 20:22 Diazepam 2 Mg Tab PO 4 mg HS FELIX Administration Divalproex Sodium 750 mg 01/08/22 21:00 01/08/22 22:00 Divalproex Er 250 Mg Tab.Er.24h PO Not Given HS FELIX Hydromorphone HCl 1 mg 01/08/22 04:36 01/09/22 08:15 Hydromorphone 1 Mg/Ml 1 Ml Syringe IVP 1 mg Q4HR PRN Administration Pain Sodium Chloride 1,000 mls @ 130 mls/hr 01/08/22 04:15 01/09/22 04:17 Saline 0.9% IV 130 mls/hr .Q7H42M FELIX Administration Fluconazole/Sodium Chloride 100 mls @ 100 mls/hr 01/08/22 14:00 01/08/22 15:28 200 mg/ IV Solution IVPB 100 mls/hr DAILY@1200 FELIX Administration Protocol Insulin Aspart 0 unit 01/08/22 21:00 01/09/22 06:31 Insulin Aspart (Novolog) 100 Unit/Ml Vial SQ 4 unit ACHS [facility] Administration Protocol Lisinopril 20 mg 01/09/22 09:00 Lisinopril 20 Mg Tab PO DAILY FELIX Lorazepam 1 mg 01/08/22 04:36 Lorazepam 2 Mg/Ml Inj IV Q4HR PRN Anxiety Lurasidone HCl 40 mg 01/09/22 07:30 Lurasidone 40 Mg Tab PO W/BRKFST FELIX Lurasidone HCl 120 mg 01/08/22 17:30 01/08/22 20:31 Lurasidone 80 Mg Tab PO Not Given W/SUPPER FELIX Metoprolol Tartrate 150 mg 01/08/22 21:00 01/08/22 20:23 Metoprolol Tartrate 50 Mg Tab PO 150 mg BID FELIX Administration Montelukast Sodium 10 mg 01/08/22 21:00 01/08/22 22:00 Montelukast 10 Mg Tab PO Not Given HS FELIX Morphine Sulfate 4 mg 01/08/22 04:13 01/08/22 08:32 Morphine Sulfate 4 Mg/Ml Syringe IV 4 mg Q4HR PRN Administration Severe Pain (Scale 7 to 10) Naloxone HCl 0.2 mg 01/08/22 04:13 Naloxone 0.4 Mg/Ml 1 Ml Vial IV Q2M PRN Opioid Reversal Nicotine 1 patch 01/08/22 22:15 01/08/22 23:32 Nicotine 14mg/24hr Patch TRANSDERM 1 patch DAILY FELIX Administration Non-Formulary Medication 1 drop 01/08/22 16:00 01/09/22 01:39 Difluprednate [Difluprednate Ophth Soln] RIGHT EYE Not Given Q4HR [facility] Non-Formulary Medication 0.01 unit 01/08/22 12:45 01/08/22 15:34 Insulin Aspart (Niacinamide) [Fiasp 100 Unit/Ml Vial] MISCELLANE Not Given CONTINUOUS FELIX Ondansetron HCl 4 mg 01/08/22 04:13 01/09/22 03:31 Ondansetron 4 Mg/2 Ml Vial IVP 4 mg Q8HR PRN Administration Nausea And Vomiting Pantoprazole Sodium 40 mg 01/08/22 21:00 01/08/22 20:23 Pantoprazole 40 Mg/10 Ml Vial IVP 40 mg BID FELIX Administration Prednisolone Acetate 1 drops 01/08/22 21:00 01/08/22 22:00 Prednisolone Acetate 1% Ophth Drops 5 Ml Btl LEFT EYE Not Given BID [facility] Prochlorperazine Edisylate 5 mg 01/08/22 04:36 01/08/22 23:32 Prochlorperazine Inj 10 Mg/2 Ml Vial IVP 5 mg Q3HR PRN Administration Nausea And Vomiting Intake and Output 01/08/22 01/09/22 01/09/22 22:59 06:59 14:59 Intake Total 1000 Output Total 500 575 Balance -500 425 Intake: Intake, IV Titration 1000 Amount Sodium Chloride 0.9% 1, 1000 000 ml @ 130 mls/hr IV . Q7H42M [facility] Rx#:[id number] Output: Urine 500 575 Other: Voiding Method Urinal # Voids 1 Weight 79.379 kg 01/08/22 02:12 01/08/22 02:12
[2022-01-09 09:01] LABS: HCT 25.1 % (39.6-50.0); HGB 7.5 g/dL (13.0-17.0); MCH 21.6 pg (27.0-32.0); MCHC 29.9 g/dL (32.0-37.0); MCV 72.1 fL (80.0-97.0); Mean Platelet Volume 9.7 fL (9.5-12.2); NRBC Per 100 WBC 0 /100 WBCS (0.0-0.0); Platelet Count 296 X 10*3/uL (140-440); RBC 3.48 X 10*6/uL (4.40-5.60); RDW 16.8 % (11.5-14.5); WBC 17.83 X 10*3/uL (4.50-10.00)
[2022-01-09 09:17] LABS: ALT 12 U/L (10-49); AST 11 U/L (14-35); African American GFR (CKD) 74.4 (60.0-200.0); Albumin 3.5 g/dL (3.8-4.9); Albumin/Globulin Ratio 1.94 (1.60-3.17); Alkaline Phosphatase 86 U/L (41-126); BUN/Creat Ratio 16.36 Ratio (12.00-20.00); Blood Urea Nitrogen 22.9 mg/dL (9.0-27.0); Calcium 8.7 mg/dL (8.7-10.3); Carbon Dioxide 17.9 mmol/L (20.0-27.5); Chloride 99 mmol/L (96-109); Globulin 1.8 g/dL (1.6-3.3); Glucose 326 mg/dL (70-110); Magnesium 1.6 mg/dL (1.5-2.4); Non-African American GFR(CKD) 64.2 (60.0-200.0); Phosphorus 2.6 mg/dL (2.4-5.1); Potassium 4.7 mmol/L (3.5-5.5); Sodium 134 mmol/L (135-145); Total Bilirubin <0.15 mg/dL (0.30-1.20); Total Protein 5.3 g/dL (6.2-8.2)
[2022-01-09] MEDS: PANTOPRAZOLE 40 MG/10 ML VIAL IVP SCH ×2 (10:22→21:34)
[2022-01-09] MEDS: ATROPINE OPHTH SOLN 1% 5ML BTL BOTH EYES SCH (10:22)
[2022-01-09] MEDS: prednisoLONE ACETATE 1% OPHTH DROPS 5 ML BTL LEFT EYE SCH ×2 (10:23→21:34)
[2022-01-09 10:24] LABS: Basophils # (A) 0.03 X 10*3/uL (0.00-0.10); Basophils % (A) 0.2 %; Eosinophils # (A) 0.01 X 10*3/uL (0.04-0.35); Eosinophils % (A) 0.1 %; Immature Grans, Automated 0.4 %; Lymphocytes # (A) 1.72 X 10*3/uL (0.90-5.00); Lymphocytes % (A) 9.6 %; Microcytosis (M) 2+; Monocytes # (A) 1.17 X 10*3/uL (0.20-1.00); Monocytes % (A) 6.6 %; Neutrophils # (A) 14.83 X 10*3/uL (1.80-7.70); Neutrophils % (A) 83.1 %
[2022-01-09] MEDS: lisinopriL 20 MG TAB PO SCH (10:24)
[2022-01-09] MEDS: diazePAM 2 MG TAB PO SCH ×2 (10:24→21:34)
[2022-01-09] MEDS: METOPROLOL TARTRATE 50 MG TAB PO SCH ×2 (10:24→21:33)
[2022-01-09] MEDS: ATORVASTATIN 10 MG TAB PO SCH (10:24)
[2022-01-09 12:15] LABS: Glucose,Whole Blood 285 mg/dL (70-110)
--- NOTE | 2022-01-09 12:28 | P.CNPUL ---
History of Present Illness Consult date: 01/09/22 Reason for consult: asthma, COPD Chief complaint: Came in persistent nausea vomiting History of present illness: 36-year-old male with chronic persistent asthma on inhaled corticosteroid developed some thrush started on nystatin swish and swallow following that developed nausea and vomiting came into the hospital for further evaluation no fever or chills, shortness of breath stable on bronchodilator therapy pain is m ostly in epigastric area no radiation patient appears to be dehydrated and hyperglycemic had a computed tomography scan of the chest no pneumonia was seen some esophageal wall thickening noted suggestive esophagitis on computed tomography scan, blood cultures 2 negative, significant labs include WBC count down from 26-17 hemoglobin and hematocrit initially 1238 and now is 7.5/25 MCV is only 72 platelet count 296 glucose is 598 now 326, liver functions are normal, stool for occult blood pending but castrated occult blood is positive patient currently being treated with the statins, continuation of the home antipsychotic medicines along with Catapres, IV fluconazole IV fluid, in next 40 mg every 12, general surgery was consulted for the EGD. Chest x-ray is unremarkable Review of Systems All systems: negative Past Medical History Past Medical History: Diabetes Mellitus Additional Past Medical History / Comment(s): bilateral glaucoma, Tachycardia, diabetic gastropariesis, diabetic neuropathy, migraine headaches, peptic ulcer disease, retinal detachment status post multiple surgeries History of Any Multi-Drug Resistant Organisms: None Reported Additional Past Surgical History / Comment(s): eye surgery, EGDs Past Anesthesia/Blood Transfusion Reactions: No Reported Reaction Past Psychological History: Anxiety, Bipolar, Depression Smoking Status: Current every day smoker Past Alcohol Use History: None Reported Past Drug Use History: None Reported - Past Family History Father Additional Family Medical History / Comment(s): Patient does not know his father's age nor his health problems. Mother Additional Family Medical History / Comment(s): Patient does not know his mother's age but states she has fibromyalgia. Sister(s) Additional Family Medical History / Comment(s): Patient has 1 sister with no major medical problems. Medications and Allergies Home Medications Medication Instructions Recorded Confirmed Type Metoprolol Tartrate [Lopressor] 150 mg PO BID 06/04/16 01/08/22 History lisinopriL [Zestril] 20 mg PO DAILY 06/04/16 01/08/22 History Atorvastatin [Lipitor] 10 mg PO DAILY 01/08/22 01/08/22 History Atropine Sulfate [Atropine Sulfate 1 drop BOTH EYES DAILY 01/08/22 01/08/22 History 1%] Benztropine Mesylate [Cogentin] 1 mg PO BID 01/08/22 01/08/22 History Difluprednate [Difluprednate Ophth 1 drop RIGHT EYE DIRECTED 01/08/22 01/08/22 History Soln] Divalproex ER [Depakote ER] 750 mg PO HS 01/08/22 01/08/22 History Finerenone [Kerendia] 20 mg PO DAILY 01/08/22 01/08/22 History Fluticasone/Umeclidin/Vilanter 1 puff INHALATION RT-DAILY 01/08/22 01/08/22 History [Trelegy Ellipta 200-62.5-25] Insulin Aspart (Niacinamide) 0.01 unit SQ-PUMP CONTINUOUS 01/08/22 01/08/22 History [Fiasp 100 Unit/ml Vial] Lurasidone HCl [Latuda] 120 mg PO W/SUPPER 01/08/22 01/08/22 History Lurasidone [Latuda] 40 mg PO W/BRKFST 01/08/22 01/08/22 History Montelukast [Singulair] 10 mg PO HS 01/08/22 01/08/22 History Omeprazole [PriLOSEC] 40 mg PO DAILY 01/08/22 01/08/22 History Pantoprazole [Protonix] 40 mg PO DAILY 01/08/22 01/08/22 History Prochlorperazine [Compazine] 10 mg PO Q8H PRN 01/08/22 01/08/22 History QUEtiapine XR [SEROquel XR] 100 mg PO HS 01/08/22 01/08/22 History QUEtiapine [SEROquel] 50 mg PO DAILY@1900 01/08/22 01/08/22 History cloNIDine HCL [Catapres] 0.1 mg PO DAILY@0300 PRN 01/08/22 01/08/22 History cloNIDine HCL [Catapres] 0.2 mg PO HS 01/08/22 01/08/22 History diazePAM [Valium] 2 mg PO DAILY 01/08/22 01/08/22 History diazePAM [Valium] 4 mg PO HS 01/08/22 01/08/22 History prednisoLONE ACETATE 1% OPHTH 1 drops LEFT EYE BID 01/08/22 01/08/22 History [Pred Forte 1%] Allergies Allergy/AdvReac Type Severity Reaction Status Date / Time adhesive tape Allergy Rash/Hives Verified 01/08/22 01:59 cefazolin Allergy Rash/Hives Verified 01/08/22 01:59 latex Allergy Rash/Hives Verified 01/08/22 01:59 metoclopramide [From Reglan] AdvReac Severe Tardive Verified 01/08/22 01:59 Dyskinesia amoxicillin [From Augmentin] AdvReac Nausea & Verified 01/08/22 01:59 Vomiting & Diarrhea clavulanic acid AdvReac Nausea & Verified 01/08/22 01:59 [From Augmentin] Vomiting & Diarrhea duloxetine [From Cymbalta] AdvReac Hallucinati Verified 01/08/22 01:59 ons pregabalin [From Lyrica] AdvReac Hallucinati Verified 01/08/22 01:59 ons Physical Exam Vitals: Vital Signs Temp Pulse Pulse Resp BP BP Pulse Ox 01/09/22 07:00 97.7 F 97 18 153/84 92 L 01/09/22 03:30 98.2 F 98 18 153/79 92 L 01/08/22 20:00 125 H 17 01/08/22 19:35 98.5 F 125 H 17 160/85 94 L 01/08/22 17:15 98.7 F 133 H 16 138/84 93 L 01/08/22 16:13 99.0 F 130 H 18 152/85 97 01/08/22 15:33 133 H 18 97 01/08/22 14:05 137 H 18 149/94 91 L 01/08/22 12:46 98.2 F 134 H 18 123/78 92 L Intake and Output 01/08/22 01/09/22 01/09/22 22:59 06:59 14:59 Intake Total 1000 Output Total 500 575 Balance -500 425 Intake: Intake, IV Titration 1000 Amount Sodium Chloride 0.9% 1, 1000 000 ml @ 130 mls/hr IV . Q7H42M [facility] Rx#:[id number] Output: Urine 500 575 Other: Voiding Method Urinal # Voids 1 Weight 79.379 kg - Constitutional General appearance: average body habitus, disheveled - EENT Eyes: EOMI, PERRLA Ears: bilateral: normal - Neck Carotids: bilateral: upstroke normal Thyroid: bilateral: normal size - Respiratory Respiratory: bilateral: CTA - Cardiovascular Rhythm: regular Heart sounds: normal: S1, S2 - Gastrointestinal General gastrointestinal: soft - Integumentary Integumentary: normal - Musculoskeletal Musculoskeletal: generalized weakness, strength equal bilaterally - Psychiatric Psychiatric: A&O x's 3, appropriate affect, intact judgment & insight Results - Laboratory Findings CBC and BMP: 01/09/22 06:08 01/09/22 06:08 PT/INR, D-dimer PT 12.3 sec (9.0-12.0) H 01/08/22 02:12 INR 1.2 (<1.2) H 01/08/22 02:12 Abnormal lab findings: Abnormal Labs 01/08/22 01/08/22 01/08/22 02:11 02:12 02:12 WBC 26.5 H RBC Hgb 12.0 L Hct 38.2 L MCV 71.8 L MCH 22.6 L MCHC RDW 16.6 H Plt Count 455 H Immature Gran # Neutrophils # 23.6 H Lymphocytes # 0.7 L Monocytes # 1.4 H Eosinophils # PT 12.3 H INR 1.2 H APTT 20.8 L Sodium Chloride Carbon Dioxide BUN Creatinine Glucose POC Glucose (mg/dL) 583 H Hemoglobin A1c Total Bilirubin AST Alkaline Phosphatase Total Protein Albumin Urine Protein Urine Glucose (UA) Urine Ketones 01/08/22 01/08/22 01/08/22 02:12 04:12 06:47 WBC RBC Hgb Hct MCV MCH MCHC RDW Plt Count Immature Gran # Neutrophils # Lymphocytes # Monocytes # Eosinophils # PT INR APTT Sodium 132 L Chloride 87 L Carbon Dioxide BUN 33 H Creatinine 2.41 H Glucose 598 H* POC Glucose (mg/dL) 473 H 391 H Hemoglobin A1c Total Bilirubin AST Alkaline Phosphatase 131 H Total Protein Albumin Urine Protein Urine Glucose (UA) Urine Ketones 01/08/22 01/08/22 01/08/22 08:25 08:28 12:50 WBC RBC Hgb Hct MCV MCH MCHC RDW Plt Count Immature Gran # Neutrophils # Lymphocytes # Monocytes # Eosinophils # PT INR APTT Sodium Chloride Carbon Dioxide BUN Creatinine Glucose POC Glucose (mg/dL) 311 H 278 H Hemoglobin A1c Total Bilirubin AST Alkaline Phosphatase Total Protein Albumin Urine Protein Trace H Urine Glucose (UA) 4+ H Urine Ketones 1+ H 01/08/22 01/08/22 01/08/22 16:10 17:12 19:30 WBC RBC Hgb Hct MCV MCH MCHC RDW Plt Count Immature Gran # Neutrophils # Lymphocytes # Monocytes # Eosinophils # PT INR APTT Sodium Chloride Carbon Dioxide BUN Creatinine Glucose POC Glucose (mg/dL) 266 H 254 H 320 H Hemoglobin A1c Total Bilirubin AST Alkaline Phosphatase Total Protein Albumin Urine Protein Urine Glucose (UA) Urine Ketones 01/09/22 01/09/22 01/09/22 06:08 06:08 06:08 WBC 17.83 H RBC 3.48 L Hgb 7.5 L Hct 25.1 L MCV 72.1 L MCH 21.6 L MCHC 29.9 L RDW 16.8 H Plt Count Immature Gran # 0.07 H Neutrophils # 14.83 H Lymphocytes # Monocytes # 1.17 H Eosinophils # 0.01 L PT INR APTT Sodium 134 L Chloride Carbon Dioxide 17.9 L BUN Creatinine Glucose 326 H POC Glucose (mg/dL) Hemoglobin A1c 12.5 H Total Bilirubin <0.15 L AST 11 L Alkaline Phosphatase Total Protein 5.3 L Albumin 3.5 L Urine Protein Urine Glucose (UA) Urine Ketones 01/09/22 06:19 WBC RBC Hgb Hct MCV MCH MCHC RDW Plt Count Immature Gran # Neutrophils # Lymphocytes # Monocytes # Eosinophils # PT INR APTT Sodium Chloride Carbon Dioxide BUN Creatinine Glucose POC Glucose (mg/dL) 318 H Hemoglobin A1c Total Bilirubin AST Alkaline Phosphatase Total Protein Albumin Urine Protein Urine Glucose (UA) Urine Ketones - Diagnostic Findings Chest x-ray: report reviewed, image reviewed CT scan - chest: report reviewed, image reviewed (Finding as noted above) Assessment and Plan Assessment: Chronic persistent asthma Associated COPD with ongoing history of smoking active Thrush and associated esophageal candidiasis Microcytic anemia likely upper GI bleed Abnormal computed tomography scan with mucosal thickening at GE junction Type 1 diabetes mellitus uncontrolled hyperglycemia Likely diabetic gastroparesis Plan: Agree with IV fluconazole Bronchodilators Consider EGD and biopsies Management of diabetes and hypertension Further care plan and as per clinical response of the patient Time with Patient: Greater than 30
[2022-01-09] MEDS: LURASIDONE 40 MG TAB PO SCH (12:42)
[2022-01-09] MEDS: BENZTROPINE MESYLATE 1 MG TAB PO SCH ×2 (12:42→21:33)
[2022-01-09] MEDS: FLUCONAZOLE IN NACL,ISO-OSM 200 MG in SALINE 1 100ML.BAG IVPB SCH (12:42)
[2022-01-09] MEDS: [UNRECOGNIZED DRUG - OTHER] MISCELLANE SCH (13:09)
[2022-01-09] MEDS: INSULIN ASPART 100 UNIT/ML MISCELLANE SCH (13:09)
[2022-01-09] MEDS: NICOTINE 14MG/24HR PATCH TRANSDERM SCH (13:10)
[2022-01-09 13:55] VITALS: BMI 25.1
--- NOTE | 2022-01-09 14:49 | CA ---
Transthoracic Echo Report Name: Tani Slater Age: 36 Gender: M : 1985 Exam Date: 01/09/2022 09:45 Exam Location: [facility] Ht (in): 70 Wt (lb): 175 Ordering Physician: Wisam Vickers MD Attending/Referring Phys: Bass Guitar Teacher Abida Morrison RDCS Procedure CPT: Indications: chf Cardiac Hx: Technical Quality: Fair Contrast 1: Total Dose (mL): Contrast 2: Total Dose (mL): MEASUREMENTS (Male / Female) Normal Values 2D ECHO LV Diastolic Diameter PLAX 4.4 cm 4.2 - 5.9 / 3.9 - 5.3 cm LV Systolic Diameter PLAX 1.7 cm IVS Diastolic Thickness 1.6 cm 0.6 - 1.0 / 0.6 - 0.9 cm LVPW Diastolic Thickness 1.7 cm 0.6 - 1.0 / 0.6 - 0.9 cm LV Relative Wall Thickness 0.8 RV Internal Dim ED PLAX 2.8 cm LA Volume 56.1 cm??? 18 - 58 / 22 - 52 cm??? M-MODE Aortic Root Diameter MM 2.7 cm LA Systolic Diameter MM 4.1 cm LA Ao Ratio MM 1.5 AV Cusp Separation MM 2.1 cm DOPPLER AV Peak Velocity 147.5 cm/s AV Peak Gradient 8.7 mmHg LVOT Peak Velocity 127.8 cm/s LVOT Peak Gradient 6.5 mmHg MV Area PHT 3.6 cm??? Mitral E Point Velocity 111.5 cm/s Mitral A Point Velocity 99.6 cm/s Mitral E to A Ratio 1.1 MV Deceleration Time 213.3 ms MV E' Velocity 8.9 cm/s Mitral E to MV E' Ratio 12.5 TR Peak Velocity 226.8 cm/s TR Peak Gradient 20.6 mmHg Right Ventricular Systolic Press 24.2 mmHg FINDINGS Left Ventricle Moderately increased left ventricular wall thickness. Normal left ventricular systolic function with no obvious regional wall motion abnormalities. Left ventricular ejection fraction is estimated at 55 %. Normal left ventricular diastolic filling pattern. Right Ventricle Normal right ventricular size and function. Right ventricular systolic pressure within normal limits. Right Atrium Normal right atrial size. Left Atrium Normal left atrial size. Mitral Valve Structurally normal mitral valve. No evidence for mitral valve prolapse. No mitral stenosis. Mild mitral regurgitation. Aortic Valve Trileaflet aortic valve. No aortic valve stenosis or regurgitation. Tricuspid Valve Structurally normal tricuspid valve. Mild tricuspid regurgitation. Pulmonic Valve Structurally normal pulmonic valve. Trace pulmonic regurgitation. Pericardium No pericardial effusion. Aorta Normal size aortic root and proximal ascending aorta. CONCLUSIONS Moderate LVH with preserved systolic function No valvular abnormalities of significance Previewed by: Dr. Paul Costa MD (Electronically Signed) Final Date: 09 January 2022 14:48
--- NOTE | 2022-01-09 15:05 | P.GSCN ---
History of Present Illness Consult date: 01/09/22 History of present illness: CHIEF COMPLAINT: Abdominal pain HISTORY OF PRESENT ILLNESS: This is a 36-year-old male with epigastric abdominal pain. Patient reports that he has had nausea and vomiting with poor oral intake for the last 12 days. He had a computed tomography scan abdomen and pelvis showing esophageal wall thickening and correlate for esophagitis. There is also a small to moderate hiatal hernia. Patient did have oral thrush after using steroid inhalers. He had been taking nystatin swish and swallow but that had caused abdominal pain. Patient does report a prior history of stomach ulcers. His last EGD was in October 2021 and per patient there was no further ulcer noted. He has had a stomach pacemaker placed in 10/28/2021 with a surgeon from different facility. Patient is a diabetic and history of gastroparesis. Patient reports no change in the color of his stools. He does report having had multiple EGDs in the past. Patient was tachycardic on admission PAST MEDICAL HISTORY: See below PAST SURGICAL HISTORY: EGDs, stomach pacemaker MEDICATIONS: See below ALLERGIES: See below SOCIAL HISTORY: No illicit drug use. REVIEW OF SYSTEMS: CONSTITUTIONAL: Denies fever or chills. HEENT: Denies blurred vision, vision changes, or eye pain. Denies hemoptysis CARDIOVASCULAR: Denies chest pain or pressure. RESPIRATORY: No shortness of breath. GASTROINTESTINAL: See HPI for pertinent findings HEMATOLOGIC: Denies bleeding disorders. GENITOURINARY: Denies any blood in urine or increased urinary frequency. SKIN: Denies pruitis. Denies rash. PHYSICAL EXAM: VITAL SIGNS: Reviewed GENERAL: Well-developed in no acute distress. HEENT: No sclera icterus. Extraocular movements grossly intact. Moist buccal mucosa. Head is atraumatic, normocephalic. No nasal drainage. ABDOMEN: Soft. Nondistended. Epigastric tenderness NEUROLOGIC: Alert and oriented. Cranial nerves II through XII grossly intact. LABORATORY DATA: WBC 26.5 down to 17.83 Hgb 12 down to 7.5 platelets 296 Sodium is 134 potassium 4.7 creatinine 2.41 down to 1.4 Hemoglobin A1c 12.5 Glucose 598 on admission Gastric occult blood positive IMAGING: Chest CT no evidence for focal consolidation to suggest pneumonia. Long segment of circumferential esophageal wall thickening, running suggest esophagitis further workup and direct visualization recommended. [id number] hiatal hernia present. ASSESSMENT: 1. Epigastric abdominal pain with computed tomography scan showing esophageal wall thickening suggestive of esophagitis 2. Oral candidiasis and possible esophageal candidiasis 3. Anemia with upper GI bleed PLAN: -Patient scheduled for EGD on , 01/12/[address] talbot -Continue full liquid diet -Continue PPI -Continue Diflucan -Continue supportive care Thank you for this consultation Physician Cvir Tech note has been reviewed by physician. Signing provider agrees with the documented findings, assessment, and plan of care. Past Medical History Past Medical History: Diabetes Mellitus Additional Past Medical History / Comment(s): bilateral glaucoma, Tachycardia, diabetic gastropariesis, diabetic neuropathy, migraine headaches, peptic ulcer disease, retinal detachment status post multiple surgeries History of Any Multi-Drug Resistant Organisms: None Reported Additional Past Surgical History / Comment(s): eye surgery, EGDs Past Anesthesia/Blood Transfusion Reactions: No Reported Reaction Past Psychological History: Anxiety, Bipolar, Depression Smoking Status: Current every day smoker Past Alcohol Use History: None Reported Past Drug Use History: None Reported - Past Family History Father Additional Family Medical History / Comment(s): Patient does not know his father's age nor his health problems. Mother Additional Family Medical History / Comment(s): Patient does not know his mother's age but states she has fibromyalgia. Sister(s) Additional Family Medical History / Comment(s): Patient has 1 sister with no major medical problems. Medications and Allergies Home Medications Medication Instructions Recorded Confirmed Type Metoprolol Tartrate [Lopressor] 150 mg PO BID 06/04/16 01/08/22 History lisinopriL [Zestril] 20 mg PO DAILY 06/04/16 01/08/22 History Atorvastatin [Lipitor] 10 mg PO DAILY 01/08/22 01/08/22 History Atropine Sulfate [Atropine Sulfate 1 drop BOTH EYES DAILY 01/08/22 01/08/22 History 1%] Benztropine Mesylate [Cogentin] 1 mg PO BID 01/08/22 01/08/22 History Difluprednate [Difluprednate Ophth 1 drop RIGHT EYE DIRECTED 01/08/22 01/08/22 History Soln] Divalproex ER [Depakote ER] 750 mg PO HS 01/08/22 01/08/22 History Finerenone [Kerendia] 20 mg PO DAILY 01/08/22 01/08/22 History Fluticasone/Umeclidin/Vilanter 1 puff INHALATION RT-DAILY 01/08/22 01/08/22 History [[place] Ellipta 200-62.5-25] Insulin Aspart (Niacinamide) 0.01 unit SQ-PUMP CONTINUOUS 01/08/22 01/08/22 History [Fiasp 100 Unit/ml Vial] Lurasidone HCl [Latuda] 120 mg PO W/SUPPER 01/08/22 01/08/22 History Lurasidone [Latuda] 40 mg PO W/BRKFST 01/08/22 01/08/22 History Montelukast [Singulair] 10 mg PO HS 01/08/22 01/08/22 History Omeprazole [PriLOSEC] 40 mg PO DAILY 01/08/22 01/08/22 History Pantoprazole [Protonix] 40 mg PO DAILY 01/08/22 01/08/22 History Prochlorperazine [Compazine] 10 mg PO Q8H PRN 01/08/22 01/08/22 History QUEtiapine XR [SEROquel XR] 100 mg PO HS 01/08/22 01/08/22 History QUEtiapine [SEROquel] 50 mg PO DAILY@1900 01/08/22 01/08/22 History cloNIDine HCL [Catapres] 0.1 mg PO DAILY@0300 PRN 01/08/22 01/08/22 History cloNIDine HCL [Catapres] 0.2 mg PO HS 01/08/22 01/08/22 History diazePAM [Valium] 2 mg PO DAILY 01/08/22 01/08/22 History diazePAM [Valium] 4 mg PO HS 01/08/22 01/08/22 History prednisoLONE ACETATE 1% OPHTH 1 drops LEFT EYE BID 01/08/22 01/08/22 History [Pred Forte 1%] Allergies Allergy/AdvReac Type Severity Reaction Status Date / Time adhesive tape Allergy Rash/Hives Verified 01/08/22 01:59 cefazolin Allergy Rash/Hives Verified 01/08/22 01:59 latex Allergy Rash/Hives Verified 01/08/22 01:59 metoclopramide [From Reglan] AdvReac Severe Tardive Verified 01/08/22 01:59 Dyskinesia amoxicillin [From Augmentin] AdvReac Nausea & Verified 01/08/22 01:59 Vomiting & Diarrhea clavulanic acid AdvReac Nausea & Verified 01/08/22 01:59 [From Augmentin] Vomiting & Diarrhea duloxetine [From Cymbalta] AdvReac Hallucinati Verified 01/08/22 01:59 ons pregabalin [From Lyrica] AdvReac Hallucinati Verified 01/08/22 01:59 ons Surgical - Exam Vital Signs Temp Pulse Resp BP Pulse Ox 97.8 F 166 H 20 144/100 98 01/08/22 01:57 01/08/22 01:57 01/08/22 01:57 01/08/22 01:57 01/08/22 01:57 Results - Labs 01/09/22 06:08 01/09/22 06:08 Abnormal Lab Results - Last 24 Hours (Table) 01/08/22 01/08/22 01/08/22 Range/Units 12:50 16:10 17:12 WBC (4.50-10.00) X 10*3/uL RBC (4.40-5.60) X 10*6/uL Hgb (13.0-17.0) g/dL Hct (39.6-50.0) % MCV (80.0-97.0) fL MCH (27.0-32.0) pg MCHC (32.0-37.0) g/dL RDW (11.5-14.5) % Immature Gran # (0.00-0.04) X 10*3/uL Neutrophils # (1.80-7.70) X 10*3/uL Monocytes # (0.20-1.00) X 10*3/uL Eosinophils # (0.04-0.35) X 10*3/uL Sodium (135-145) mmol/L Carbon Dioxide (20.0-27.5) mmol/L Glucose (70-110) mg/dL POC Glucose (mg/dL) 278 H 266 H 254 H (70-110) mg/dL Hemoglobin A1c (0.0-6.0) % Total Bilirubin (0.30-1.20) mg/dL AST (14-35) U/L Total Protein (6.2-8.2) g/dL Albumin (3.8-4.9) g/dL 01/08/22 01/09/22 01/09/22 Range/Units 19:30 06:08 06:08 WBC 17.83 H (4.50-10.00) X 10*3/uL RBC 3.48 L (4.40-5.60) X 10*6/uL Hgb 7.5 L (13.0-17.0) g/dL Hct 25.1 L (39.6-50.0) % MCV 72.1 L (80.0-97.0) fL MCH 21.6 L (27.0-32.0) pg MCHC 29.9 L (32.0-37.0) g/dL RDW 16.8 H (11.5-14.5) % Immature Gran # 0.07 H (0.00-0.04) X 10*3/uL Neutrophils # 14.83 H (1.80-7.70) X 10*3/uL Monocytes # 1.17 H (0.20-1.00) X 10*3/uL Eosinophils # 0.01 L (0.04-0.35) X 10*3/uL Sodium (135-145) mmol/L Carbon Dioxide (20.0-27.5) mmol/L Glucose (70-110) mg/dL POC Glucose (mg/dL) 320 H (70-110) mg/dL Hemoglobin A1c 12.5 H (0.0-6.0) % Total Bilirubin (0.30-1.20) mg/dL AST (14-35) U/L Total Protein (6.2-8.2) g/dL Albumin (3.8-4.9) g/dL 01/09/22 01/09/22 Range/Units 06:08 06:19 WBC (4.50-10.00) X 10*3/uL RBC (4.40-5.60) X 10*6/uL Hgb (13.0-17.0) g/dL Hct (39.6-50.0) % MCV (80.0-97.0) fL MCH (27.0-32.0) pg MCHC (32.0-37.0) g/dL RDW (11.5-14.5) % Immature Gran # (0.00-0.04) X 10*3/uL Neutrophils # (1.80-7.70) X 10*3/uL Monocytes # (0.20-1.00) X 10*3/uL Eosinophils # (0.04-0.35) X 10*3/uL Sodium 134 L (135-145) mmol/L Carbon Dioxide 17.9 L (20.0-27.5) mmol/L Glucose 326 H (70-110) mg/dL POC Glucose (mg/dL) 318 H (70-110) mg/dL Hemoglobin A1c (0.0-6.0) % Total Bilirubin <0.15 L (0.30-1.20) mg/dL AST 11 L (14-35) U/L Total Protein 5.3 L (6.2-8.2) g/dL Albumin 3.5 L (3.8-4.9) g/dL Microbiology - Last 24 Hours (Table) 01/08/22 04:30 Blood Culture - Preliminary Blood No Growth after 24 hours 01/08/22 04:45 Blood Culture - Preliminary Blood No Growth after 24 hours Diabetes panel 01/09/22 01/09/22 Range/Units 06:08 06:08 Sodium 134 L (135-145) mmol/L Potassium 4.7 (3.5-5.5) mmol/L Chloride 99 (96-109) mmol/L Carbon Dioxide 17.9 L (20.0-27.5) mmol/L BUN 22.9 (9.0-27.0) mg/dL Creatinine 1.4 (0.6-1.5) mg/dL Glucose 326 H (70-110) mg/dL Hemoglobin A1c 12.5 H (0.0-6.0) % Calcium 8.7 (8.7-10.3) mg/dL AST 11 L (14-35) U/L ALT 12 (10-49) U/L Alkaline Phosphatase 86 (41-126) U/L Total Protein 5.3 L (6.2-8.2) g/dL Albumin 3.5 L (3.8-4.9) g/dL Calcium panel 01/09/22 Range/Units 06:08 Calcium 8.7 (8.7-10.3) mg/dL Phosphorus 2.6 (2.4-5.1) mg/dL Albumin 3.5 L (3.8-4.9) g/dL Pituitary panel 01/09/22 Range/Units 06:08 Sodium 134 L (135-145) mmol/L Potassium 4.7 (3.5-5.5) mmol/L Chloride 99 (96-109) mmol/L Carbon Dioxide 17.9 L (20.0-27.5) mmol/L BUN 22.9 (9.0-27.0) mg/dL Creatinine 1.4 (0.6-1.5) mg/dL Glucose 326 H (70-110) mg/dL Calcium 8.7 (8.7-10.3) mg/dL Adrenal panel 01/09/22 Range/Units 06:08 Sodium 134 L (135-145) mmol/L Potassium 4.7 (3.5-5.5) mmol/L Chloride 99 (96-109) mmol/L Carbon Dioxide 17.9 L (20.0-27.5) mmol/L BUN 22.9 (9.0-27.0) mg/dL Creatinine 1.4 (0.6-1.5) mg/dL Glucose 326 H (70-110) mg/dL Calcium 8.7 (8.7-10.3) mg/dL Total Bilirubin <0.15 L (0.30-1.20) mg/dL AST 11 L (14-35) U/L ALT 12 (10-49) U/L Alkaline Phosphatase 86 (41-126) U/L Total Protein 5.3 L (6.2-8.2) g/dL Albumin 3.5 L (3.8-4.9) g/dL
[2022-01-09 17:20] LABS: Glucose,Whole Blood 287 mg/dL (70-110)
[2022-01-09 20:59] LABS: Glucose,Whole Blood 253 mg/dL (70-110)
[2022-01-09] MEDS: LURASIDONE 80 MG TAB PO SCH (21:33)
[2022-01-09] MEDS: MONTELUKAST 10 MG TAB PO SCH (21:33)
[2022-01-09] MEDS: DIVALPROEX ER 250 MG TAB.ER.24H PO SCH (21:41)
[2022-01-10] MEDS: HYDROmorphone 1 MG/ML 1 ML SYRINGE IVP PRN ×5 (01:16→20:00)
[2022-01-10] MEDS: NON FORMULARY DRUG (Difluprednate [Difluprednate Ophth Soln] 5 ML Ml) RIGHT EYE SCH ×6 (03:05→22:44)
[2022-01-10] MEDS: SODIUM CHLORIDE 0.9% 1,000 ML IV SCH ×3 (04:13→20:04)
[2022-01-10 06:17] LABS: Glucose,Whole Blood 319 mg/dL (70-110)
[2022-01-10] MEDS: LURASIDONE 40 MG TAB PO SCH (06:27)
[2022-01-10] MEDS: INSULIN ASPART (NovoLOG) 100 UNIT/ML VIAL SQ SCH ×6 (06:27→22:38)
[2022-01-10] MEDS: ONDANSETRON 4 MG/2 ML VIAL IVP PRN ×3 (06:33→22:47)
[2022-01-10] MEDS: lisinopriL 20 MG TAB PO SCH (08:24)
[2022-01-10] MEDS: METOPROLOL TARTRATE 50 MG TAB PO SCH ×2 (08:24→20:02)
[2022-01-10] MEDS: NICOTINE 14MG/24HR PATCH TRANSDERM SCH ×2 (08:25→08:27)
[2022-01-10] MEDS: diazePAM 2 MG TAB PO SCH ×2 (08:25→22:38)
[2022-01-10] MEDS: PANTOPRAZOLE 40 MG/10 ML VIAL IVP SCH ×2 (08:25→20:03)
[2022-01-10] MEDS: prednisoLONE ACETATE 1% OPHTH DROPS 5 ML BTL LEFT EYE SCH ×2 (08:25→20:05)
[2022-01-10] MEDS: ATORVASTATIN 10 MG TAB PO SCH (08:25)
[2022-01-10] MEDS: BENZTROPINE MESYLATE 1 MG TAB PO SCH ×2 (08:26→20:03)
[2022-01-10] MEDS: ATROPINE OPHTH SOLN 1% 5ML BTL BOTH EYES SCH (08:38)
[2022-01-10 10:39] LABS: Anisocytosis Slight; Basophils % (A) 1 %; Eosinophils % (A) 0 %; HCT 29.2 % (39.0-53.0); Hypochromasia Marked; Lymphocytes % (A) 22 %; MCH 22.5 pg (25.0-35.0); MCHC 30.3 g/dL (31.0-37.0); MCV 74.2 fL (80.0-100.0); Mean Platelet Volume 7.8; Microcytosis Slight; Monocytes # (A) 0.4 k/uL (0-1.0); Monocytes % (A) 5 %; Neutrophils # (A) 6.5 k/uL (1.3-7.7); Neutrophils % (A) 69 %; Platelet Count 331 k/uL (150-450); RBC 3.94 m/uL (4.30-5.90); RDW 16.6 % (11.5-15.5); WBC 9.4 k/uL (3.8-10.6)
[2022-01-10 10:42] LABS: HGB 8.9 gm/dL (13.0-17.5)
[2022-01-10 10:43] LABS: African American GFR (CKD) >90 (>60 ml/min/1.73 sqM); Anion Gap 12 mmol/L; Blood Urea Nitrogen 17 mg/dL (9-20); Calcium 8.1 mg/dL (8.4-10.2); Carbon Dioxide 16 mmol/L (22-30); Chloride 105 mmol/L (98-107); Glucose 232 mg/dL (74-99); Non-African American GFR(CKD) 90 (>60 ml/min/1.73 sqM); Potassium 4.1 mmol/L (3.5-5.1); Sodium 133 mmol/L (137-145)
[2022-01-10 11:41] LABS: Glucose,Whole Blood 390 mg/dL (70-110)
[2022-01-10] MEDS: [UNRECOGNIZED DRUG - OTHER] MISCELLANE SCH (11:46)
[2022-01-10] MEDS: INSULIN ASPART 100 UNIT/ML MISCELLANE SCH (11:46)
[2022-01-10] MEDS: FLUCONAZOLE IN NACL,ISO-OSM 200 MG in SALINE 1 100ML.BAG IVPB SCH (11:52)
--- NOTE | 2022-01-10 13:18 | P.PN ---
Subjective Progress Note Date: 01/10/22 CHIEF COMPLAINT: Abdominal pain HISTORY OF PRESENT ILLNESS: Patient continues to complain of epigastric pain after eating. He was able to eat some of the full liquids. Last episode of vomiting was yesterday. He did have a normal bowel movement yesterday and is having flatus. Denies any bloody or black stools. He does have a history of bleeding stomach ulcers. Afebrile. WBC 9.4 Hgb 7.5 up to 8.9 and platelets 331 sodium 133 potassium 4.1 creatinine 1.07 Patient seen and examined with Dr. Talbot PHYSICAL EXAM: VITAL SIGNS: Reviewed. GENERAL: Well-developed in no acute distress. HEENT: No sclera icterus. Extraocular movements grossly intact. Moist buccal mucosa. Head is atraumatic, normocephalic. ABDOMEN: Soft. Nondistended. Nontender. NEUROLOGIC: Alert and oriented. Cranial nerves II through XII grossly intact. ASSESSMENT: 1. Epigastric abdominal pain with computed tomography scan showing esophageal wall thickening suggestive of esophagitis 2. Oral candidiasis and possible esophageal candidiasis 3. Anemia with upper GI bleed PLAN: -Patient scheduled for EGD on , 01/12/[address] talbot -Continue full liquid diet -Continue PPI -Continue Diflucan -Continue supportive care Physician Physician Vice President note has been reviewed by physician. Signing provider agrees with the documented findings, assessment, and plan of care. Objective - Vital Signs Vital signs: Vital Signs Temp 97.9 F 01/10/22 12:54 Pulse 74 01/10/22 12:54 Resp 14 01/10/22 12:54 BP 146/85 01/10/22 12:54 Pulse Ox 93 L 01/10/22 12:54 FiO2 Intake & Output 01/09/22 01/10/22 01/10/22 18:59 06:59 18:59 Intake Total 480 118 Output Total 600 950 975 Balance -120 -950 -857 Weight 79.379 kg Intake: Oral 480 118 Output: Urine 600 950 975 Other: Voiding Method Urinal Urinal # Voids 300 - Labs CBC & Chem 7: 01/10/22 10:16 01/10/22 10:16 Labs: Abnormal Lab Results - Last 24 Hours (Table) 01/09/22 01/09/22 01/10/22 Range/Units 17:15 20:57 06:16 RBC (4.30-5.90) m/uL Hgb (13.0-17.5) gm/dL Hct (39.0-53.0) % MCV (80.0-100.0) fL MCH (25.0-35.0) pg MCHC (31.0-37.0) g/dL RDW (11.5-15.5) % Sodium (137-145) mmol/L Carbon Dioxide (22-30) mmol/L Glucose (74-99) mg/dL POC Glucose (mg/dL) 287 H 253 H 319 H (70-110) mg/dL Calcium (8.4-10.2) mg/dL 01/10/22 01/10/22 01/10/22 Range/Units 10:16 10:16 11:38 RBC 3.94 L (4.30-5.90) m/uL Hgb 8.9 L D (13.0-17.5) gm/dL Hct 29.2 L (39.0-53.0) % MCV 74.2 L (80.0-100.0) fL MCH 22.5 L (25.0-35.0) pg MCHC 30.3 L (31.0-37.0) g/dL RDW 16.6 H (11.5-15.5) % Sodium 133 L (137-145) mmol/L Carbon Dioxide 16 L (22-30) mmol/L Glucose 232 H (74-99) mg/dL POC Glucose (mg/dL) 390 H (70-110) mg/dL Calcium 8.1 L (8.4-10.2) mg/dL Microbiology - Last 24 Hours (Table) 01/08/22 04:45 Blood Culture - Preliminary Blood No Growth after 48 hours 01/08/22 04:30 Blood Culture - Preliminary Blood No Growth after 48 hours
--- NOTE | 2022-01-10 13:37 | P.PN ---
Subjective Progress Note Date: 01/10/22 Principal diagnosis: Chronic persistent asthma Associated COPD with ongoing history of smoking active Thrush and associated esophageal candidiasis Microcytic anemia likely upper GI bleed Abnormal computed tomography scan with mucosal thickening at GE junction Type 1 diabetes mellitus uncontrolled hyperglycemia diabetic gastroparesis 01/10/2022, patient seen and evaluated examined during the rounds labs reviewed medications reviewed, less nauseous shortness of breath stable has ongoing intermittent cough which is dry and nonproductive, patient has been evaluated by general surgery planning for endoscopy patient remains on IV Diflucan, labs from today reviewed white cell count is 9.4 hemoglobin and hematocrit 8.9/29 sodium is 133, potassium 4.1, BUN/creatinine is 12/1.07, glucose remains high to 32 prior was 390 calcium is 8.1, blood cultures 2 has been negative, patient is status post a gastric pacemaker from [facility] about a year ago for diabetic severe gastroparesis 36-year-old male with chronic persistent asthma on inhaled corticosteroid dev eloped some thrush started on nystatin swish and swallow following that developed nausea and vomiting came into the hospital for further evaluation no fever or chills, shortness of breath stable on bronchodilator therapy pain is mostly in epigastric area no radiation patient appears to be dehydrated and hyperglycemic had a computed tomography scan of the chest no pneumonia was seen some esophageal wall thickening noted suggestive esophagitis on computed tomography scan, blood cultures 2 negative, significant labs include WBC count down from 26-17 hemoglobin and hematocrit initially 1238 and now is 7.5/25 MCV is only 72 platelet count 296 glucose is 598 now 326, liver functions are normal, stool for occult blood pending but castrated occult blood is positive patient currently being treated with the statins, continuation of the home antipsychotic medicines along with Catapres, IV fluconazole IV fluid, in next 40 mg every 12, general surgery was consulted for the EGD. Chest x-ray is unr emarkable Objective - Vital Signs Vital signs: Vital Signs Temp 97.9 F 01/10/22 12:54 Pulse 74 01/10/22 12:54 Resp 14 01/10/22 12:54 BP 146/85 01/10/22 12:54 Pulse Ox 93 L 01/10/22 12:54 FiO2 Intake & Output 01/09/22 01/10/22 01/10/22 18:59 06:59 18:59 Intake Total 480 118 Output Total 372 958 1056 Balance -538 -867 -7978 Weight 79.379 kg Intake: Oral 480 118 Output: Urine 156 612 5986 Other: Voiding Method Urinal Urinal # Voids 300 - Exam - Constitutional General appearance: average body habitus, disheveled - EENT Eyes: EOMI, PERRLA Ears: bilateral: normal - Neck Carotids: bilateral: upstroke normal Thyroid: bilateral: normal size - Respiratory Respiratory: bilateral: CTA - Cardiovascular Rhythm: regular Heart sounds: normal: S1, S2 - Gastrointestinal General gastrointestinal: soft - Integumentary Integumentary: normal - Musculoskeletal Musculoskeletal: generalized weakness, strength equal bilaterally - Psychiatric Psychiatric: A&O x's 3, appropriate affect, intact judgment & insight - Labs CBC & Chem 7: 01/10/22 10:16 01/10/22 10:16 Labs: Abnormal Lab Results - Last 24 Hours (Table) 01/09/22 01/09/22 01/10/22 Range/Units 17:15 20:57 06:16 RBC (4.30-5.90) m/uL Hgb (13.0-17.5) gm/dL Hct (39.0-53.0) % MCV (80.0-100.0) fL MCH (25.0-35.0) pg MCHC (31.0-37.0) g/dL RDW (11.5-15.5) % Sodium (137-145) mmol/L Carbon Dioxide (22-30) mmol/L Glucose (74-99) mg/dL POC Glucose (mg/dL) 287 H 253 H 319 H (70-110) mg/dL Calcium (8.4-10.2) mg/dL 01/10/22 01/10/22 01/10/22 Range/Units 10:16 10:16 11:38 RBC 3.94 L (4.30-5.90) m/uL Hgb 8.9 L D (13.0-17.5) gm/dL Hct 29.2 L (39.0-53.0) % MCV 74.2 L (80.0-100.0) fL MCH 22.5 L (25.0-35.0) pg MCHC 30.3 L (31.0-37.0) g/dL RDW 16.6 H (11.5-15.5) % Sodium 133 L (137-145) mmol/L Carbon Dioxide 16 L (22-30) mmol/L Glucose 232 H (74-99) mg/dL POC Glucose (mg/dL) 390 H (70-110) mg/dL Calcium 8.1 L (8.4-10.2) mg/dL Microbiology - Last 24 Hours (Table) 01/08/22 04:45 Blood Culture - Preliminary Blood No Growth after 48 hours 01/08/22 04:30 Blood Culture - Preliminary Blood No Growth after 48 hours Assessment and Plan Assessment: Chronic persistent asthma Associated COPD with ongoing history of smoking active Thrush and associated esophageal candidiasis Microcytic anemia likely upper GI bleed Abnormal computed tomography scan with mucosal thickening at GE junction Type 1 diabetes mellitus uncontrolled hyperglycemia Likely diabetic gastroparesis Plan: Continue IV fluconazole Bronchodilators Consider EGD and biopsies Management of diabetes and hypertension Further care plan and as per clinical response of the patient
[2022-01-10 16:34] LABS: Glucose,Whole Blood 278 mg/dL (70-110)
[2022-01-10] MEDS: LURASIDONE 80 MG TAB PO SCH (18:18)
[2022-01-10] MEDS: MONTELUKAST 10 MG TAB PO SCH (20:02)
[2022-01-10] MEDS: DIVALPROEX ER 250 MG TAB.ER.24H PO SCH (20:04)
[2022-01-10 20:31] LABS: Glucose,Whole Blood 268 mg/dL (70-110)
--- NOTE | 2022-01-10 23:29 | PN ---
PROGRESS NOTE He has chronic persistent asthma associated with COPD, ongoing nicotine addiction, thrush, esophagitis, candidiasis, microcytic anemia likely an upper GI bleed, with mucosal thickening, diabetes type 1, uncontrolled hyperglycemia, diabetic gastroparesis with gastric pump, prerenal azotemia, IV fluconazole, bronchodilators, EGD and biopsies, hypertension. Wait for to do an EGD on this patient. Prognosis guarded. MMODL / IJN: [id number] /
[2022-01-11] MEDS: HYDROmorphone 1 MG/ML 1 ML SYRINGE IVP PRN ×6 (00:49→23:27)
[2022-01-11] MEDS: PROCHLORPERAZINE INJ 10 MG/2 ML VIAL IVP PRN ×2 (04:29→20:13)
[2022-01-11] MEDS: NON FORMULARY DRUG (Difluprednate [Difluprednate Ophth Soln] 5 ML Ml) RIGHT EYE SCH ×6 (04:35→23:25)
[2022-01-11] MEDS: SODIUM CHLORIDE 0.9% 1,000 ML IV SCH ×3 (04:36→16:49)
[2022-01-11] MEDS: LURASIDONE 40 MG TAB PO SCH ×2 (06:27→18:10)
[2022-01-11] MEDS: INSULIN ASPART (NovoLOG) 100 UNIT/ML VIAL SQ SCH ×7 (06:27→21:20)
[2022-01-11 06:31] LABS: Glucose,Whole Blood 348 mg/dL (70-110)
[2022-01-11] MEDS: METOPROLOL TARTRATE 50 MG TAB PO SCH ×2 (09:28→20:21)
[2022-01-11] MEDS: PANTOPRAZOLE 40 MG/10 ML VIAL IVP SCH ×2 (09:28→20:14)
[2022-01-11] MEDS: lisinopriL 20 MG TAB PO SCH (09:29)
[2022-01-11] MEDS: diazePAM 2 MG TAB PO SCH ×2 (09:29→20:14)
[2022-01-11] MEDS: ATROPINE OPHTH SOLN 1% 5ML BTL BOTH EYES SCH (09:30)
[2022-01-11] MEDS: prednisoLONE ACETATE 1% OPHTH DROPS 5 ML BTL LEFT EYE SCH ×2 (09:31→20:14)
[2022-01-11] MEDS: BENZTROPINE MESYLATE 1 MG TAB PO SCH ×2 (09:31→20:14)
[2022-01-11] MEDS: ATORVASTATIN 10 MG TAB PO SCH (09:35)
[2022-01-11 11:36] LABS: Glucose,Whole Blood 222 mg/dL (70-110)
[2022-01-11] MEDS: FLUCONAZOLE IN NACL,ISO-OSM 200 MG in SALINE 1 100ML.BAG IVPB SCH (12:30)
[2022-01-11] MEDS: ONDANSETRON 4 MG/2 ML VIAL IVP PRN (12:48)
[2022-01-11] MEDS: INSULIN ASPART 100 UNIT/ML MISCELLANE SCH (12:54)
[2022-01-11] MEDS: [UNRECOGNIZED DRUG - OTHER] MISCELLANE SCH (12:54)
--- NOTE | 2022-01-11 13:08 | P.PN ---
Subjective Progress Note Date: 01/09/22 Principal diagnosis: Leukocytosis and esophagitis Patient is a 36-year male with a past medical history significant of insulin-dependent Beatties mellitus recently diagnosed with a rash in the outpatient setting presented to hospital with epigastric abdominal pain and n ausea and vomiting patient did have a CT of the chest that shows long segment of circumferential esophageal wall thickening suggestive of esophagitis. On today's evaluation that is 01/09/2022 the patient denies having any fever or any chills still complaining of epigastric area pain, no further vomiting no chest pain shortness of breath or cough and no diarrhea Objective - Vital Signs Vital signs: Vital Signs Temp 97.7 F 01/09/22 07:00 Pulse 97 01/09/22 07:00 Resp 18 01/09/22 07:00 BP 153/84 01/09/22 07:00 Pulse Ox 92 L 01/09/22 07:00 FiO2 Intake & Output 01/08/22 01/09/22 01/09/22 18:59 06:59 18:59 Intake Total 1000 0 Output Total 500 575 400 Balance -500 425 -400 Weight 79.379 kg Intake: Intake, IV Titration 1000 Amount Sodium Chloride 0.9% 1, 1000 000 ml @ 130 mls/hr IV . Q7H42M ON LICENSE OF [facility] Rx#:[id number] Oral 0 Output: Urine 500 575 400 Other: Voiding Method Urinal # Voids 1 - Exam GENERAL DESCRIPTION: Middle-aged male lying in bed, no distress. No tachypnea or accessory muscle of respiration use. LUNGS: Unlabored breathing. Clear to auscultation anteriorly. No wheeze or crackle. HEART: S1, S2, regular rate and rhythm. No loud murmur ABDOMEN: Soft, mild epigastric tenderness wound on home on Augmentin pulm pulm pulm pulm pulm pulm pulm EXTREMITIES: No edema of feet. - Labs CBC & Chem 7: 01/10/22 10:16 01/10/22 10:16 Labs: Abnormal Lab Results - Last 24 Hours (Table) 01/08/22 01/08/22 01/08/22 Range/Units 16:10 17:12 19:30 WBC (4.50-10.00) X 10*3/uL RBC (4.40-5.60) X 10*6/uL Hgb (13.0-17.0) g/dL Hct (39.6-50.0) % MCV (80.0-97.0) fL MCH (27.0-32.0) pg MCHC (32.0-37.0) g/dL RDW (11.5-14.5) % Immature Gran # (0.00-0.04) X 10*3/uL Neutrophils # (1.80-7.70) X 10*3/uL Monocytes # (0.20-1.00) X 10*3/uL Eosinophils # (0.04-0.35) X 10*3/uL Sodium (135-145) mmol/L Carbon Dioxide (20.0-27.5) mmol/L Glucose (70-110) mg/dL POC Glucose (mg/dL) 266 H 254 H 320 H (70-110) mg/dL Hemoglobin A1c (0.0-6.0) % Total Bilirubin (0.30-1.20) mg/dL AST (14-35) U/L Total Protein (6.2-8.2) g/dL Albumin (3.8-4.9) g/dL 01/09/22 01/09/22 01/09/22 Range/Units 06:08 06:08 06:08 WBC 17.83 H (4.50-10.00) X 10*3/uL RBC 3.48 L (4.40-5.60) X 10*6/uL Hgb 7.5 L (13.0-17.0) g/dL Hct 25.1 L (39.6-50.0) % MCV 72.1 L (80.0-97.0) fL MCH 21.6 L (27.0-32.0) pg MCHC 29.9 L (32.0-37.0) g/dL RDW 16.8 H (11.5-14.5) % Immature Gran # 0.07 H (0.00-0.04) X 10*3/uL Neutrophils # 14.83 H (1.80-7.70) X 10*3/uL Monocytes # 1.17 H (0.20-1.00) X 10*3/uL Eosinophils # 0.01 L (0.04-0.35) X 10*3/uL Sodium 134 L (135-145) mmol/L Carbon Dioxide 17.9 L (20.0-27.5) mmol/L Glucose 326 H (70-110) mg/dL POC Glucose (mg/dL) (70-110) mg/dL Hemoglobin A1c 12.5 H (0.0-6.0) % Total Bilirubin <0.15 L (0.30-1.20) mg/dL AST 11 L (14-35) U/L Total Protein 5.3 L (6.2-8.2) g/dL Albumin 3.5 L (3.8-4.9) g/dL 01/09/22 01/09/22 Range/Units 06:19 12:07 WBC (4.50-10.00) X 10*3/uL RBC (4.40-5.60) X 10*6/uL Hgb (13.0-17.0) g/dL Hct (39.6-50.0) % MCV (80.0-97.0) fL MCH (27.0-32.0) pg MCHC (32.0-37.0) g/dL RDW (11.5-14.5) % Immature Gran # (0.00-0.04) X 10*3/uL Neutrophils # (1.80-7.70) X 10*3/uL Monocytes # (0.20-1.00) X 10*3/uL Eosinophils # (0.04-0.35) X 10*3/uL Sodium (135-145) mmol/L Carbon Dioxide (20.0-27.5) mmol/L Glucose (70-110) mg/dL POC Glucose (mg/dL) 318 H 285 H (70-110) mg/dL Hemoglobin A1c (0.0-6.0) % Total Bilirubin (0.30-1.20) mg/dL AST (14-35) U/L Total Protein (6.2-8.2) g/dL Albumin (3.8-4.9) g/dL Microbiology - Last 24 Hours (Table) 01/08/22 04:30 Blood Culture - Preliminary Blood No Growth after 24 hours 01/08/22 04:45 Blood Culture - Preliminary Blood No Growth after 24 hours Assessment and Plan (1) Esophagitis Current Visit: Yes Status: Acute Code(s): K20.90 - ESOPHAGITIS, UNSPECIFIED WITHOUT BLEEDING SNOMED Code(s): 15687356 (2) Leukocytosis Current Visit: Yes Status: Acute Code(s): D72.829 - ELEVATED WHITE BLOOD CELL COUNT, UNSPECIFIED SNOMED Code(s): 638669537 Plan: 1patient present to hospital with epigastric pain nausea and vomiting in this patient has been diagnosed in the outpatient setting with rash and apparently seem to have a problem with keeping it down and developing pneumonia with evidence of a long segment of esophagitis concerning for possibly Monik esophagitis with likely etiology. 2Patient to continue with Diflucan 200 mg IV daily and Monitor clinical course closely Time with Patient: Less than 30
--- NOTE | 2022-01-11 13:09 | P.PN ---
Subjective Progress Note Date: 01/10/22 Principal diagnosis: Leukocytosis and esophagitis Patient is a 36-year male with a past medical history significant of insulin-dependent Beatties mellitus recently diagnosed with a rash in the outpatient setting presented to hospital with epigastric abdominal pain and n ausea and vomiting patient did have a CT of the chest that shows long segment of circumferential esophageal wall thickening suggestive of esophagitis. On today's evaluation that is 01/10/2022 patient remains to be afebrile, the patient is breathing comfortably the patient still complaining of pain to the epigastric area but no worsening no further vomiting no chest pain shortness of breath or cough and no diarrhea Objective - Vital Signs Vital signs: Vital Signs Temp 97.9 F 01/10/22 12:54 Pulse 74 01/10/22 12:54 Resp 14 01/10/22 12:54 BP 146/85 01/10/22 12:54 Pulse Ox 93 L 01/10/22 12:54 FiO2 Intake & Output 01/09/22 01/10/22 01/10/22 18:59 06:59 18:59 Intake Total 480 118 Output Total 600 950 975 Balance -120 -950 -857 Weight 79.379 kg Intake: Oral 480 118 Output: Urine 600 950 975 Other: Voiding Method Urinal Urinal # Voids 300 - Exam GENERAL DESCRIPTION: Middle-aged male lying in bed, no distress. No tachypnea or accessory muscle of respiration use. LUNGS: Unlabored breathing. Clear to auscultation anteriorly. No wheeze or crackle. HEART: S1, S2, regular rate and rhythm. No loud murmur ABDOMEN: Soft, mild epigastric tenderness wound on home on Augmentin pulm pulm pulm pulm pulm pulm pulm EXTREMITIES: No edema of feet. - Labs CBC & Chem 7: 01/10/22 10:16 01/10/22 10:16 Labs: Abnormal Lab Results - Last 24 Hours (Table) 01/09/22 01/09/22 01/10/22 Range/Units 17:15 20:57 06:16 RBC (4.30-5.90) m/uL Hgb (13.0-17.5) gm/dL Hct (39.0-53.0) % MCV (80.0-100.0) fL MCH (25.0-35.0) pg MCHC (31.0-37.0) g/dL RDW (11.5-15.5) % Sodium (137-145) mmol/L Carbon Dioxide (22-30) mmol/L Glucose (74-99) mg/dL POC Glucose (mg/dL) 287 H 253 H 319 H (70-110) mg/dL Calcium (8.4-10.2) mg/dL 01/10/22 01/10/22 01/10/22 Range/Units 10:16 10:16 11:38 RBC 3.94 L (4.30-5.90) m/uL Hgb 8.9 L D (13.0-17.5) gm/dL Hct 29.2 L (39.0-53.0) % MCV 74.2 L (80.0-100.0) fL MCH 22.5 L (25.0-35.0) pg MCHC 30.3 L (31.0-37.0) g/dL RDW 16.6 H (11.5-15.5) % Sodium 133 L (137-145) mmol/L Carbon Dioxide 16 L (22-30) mmol/L Glucose 232 H (74-99) mg/dL POC Glucose (mg/dL) 390 H (70-110) mg/dL Calcium 8.1 L (8.4-10.2) mg/dL Microbiology - Last 24 Hours (Table) 01/08/22 04:45 Blood Culture - Preliminary Blood No Growth after 48 hours 01/08/22 04:30 Blood Culture - Preliminary Blood No Growth after 48 hours Assessment and Plan (1) Esophagitis Current Visit: Yes Status: Acute Code(s): K20.90 - ESOPHAGITIS, UNSPECIFIED WITHOUT BLEEDING SNOMED Code(s): 02831718 (2) Leukocytosis Current Visit: Yes Status: Acute Code(s): D72.829 - ELEVATED WHITE BLOOD CELL COUNT, UNSPECIFIED SNOMED Code(s): 670227220 Plan: 1patient present to hospital with epigastric pain nausea and vomiting in this patient has been diagnosed in the outpatient setting with rash and apparently seem to have a problem with keeping it down and developing pneumonia with evidence of a long segment of esophagitis concerning for possibly Monik esophagitis with likely etiology. 2Patient seem to have shown some clinical improvement patient white count has normalized we will continue with the [facility] is on the case planning for EGD Time with Patient: Less than 30
--- NOTE | 2022-01-11 13:10 | P.PN ---
Subjective Progress Note Date: 01/11/22 Principal diagnosis: Leukocytosis and esophagitis Patient is a 36-year male with a past medical history significant of insulin-dependent Beatties mellitus recently diagnosed with a rash in the outpatient setting presented to hospital with epigastric abdominal pain and n ausea and vomiting patient did have a CT of the chest that shows long segment of circumferential esophageal wall thickening suggestive of esophagitis. On today's evaluation that is 01/11/2022 the patient denies having any fever or any chills patient is breathing comfortably on room air patient denies having any chest pain or shortness of breath epigastric pain has decreased intensity with no further vomiting and no diarrhea Objective - Vital Signs Vital signs: Vital Signs Temp 97.8 F 01/11/22 12:07 Pulse 71 01/11/22 12:07 Resp 14 01/11/22 12:07 BP 157/91 01/11/22 12:07 Pulse Ox 96 01/11/22 12:07 FiO2 Intake & Output 01/10/22 01/11/22 01/11/22 18:59 06:59 18:59 Intake Total 718 600 Output Total 1850 900 575 Balance -1132 -900 25 Intake: Oral 718 600 Output: Urine 1850 900 575 Other: Voiding Method Urinal Urinal # Voids 2 - Exam GENERAL DESCRIPTION: Middle-aged male lying in bed, no distress. No tachypnea or accessory muscle of respiration use. LUNGS: Unlabored breathing. Clear to auscultation anteriorly. No wheeze or crackle. HEART: S1, S2, regular rate and rhythm. No loud murmur ABDOMEN: Soft, mild epigastric tenderness wound on home on Augmentin pulm pulm pulm pulm pulm pulm pulm EXTREMITIES: No edema of feet. - Labs CBC & Chem 7: 01/10/22 10:16 01/10/22 10:16 Labs: Abnormal Lab Results - Last 24 Hours (Table) 01/10/22 01/10/22 01/11/22 Range/Units 16:32 20:29 06:30 POC Glucose (mg/dL) 278 H 268 H 348 H (70-110) mg/dL 01/11/22 Range/Units 11:34 POC Glucose (mg/dL) 222 H (70-110) mg/dL Microbiology - Last 24 Hours (Table) 01/08/22 04:45 Blood Culture - Preliminary Blood No Growth after 72 hours 01/08/22 04:30 Blood Culture - Preliminary Blood No Growth after 72 hours Assessment and Plan (1) Esophagitis Current Visit: Yes Status: Acute Code(s): K20.90 - ESOPHAGITIS, UNSPECIFIED WITHOUT BLEEDING SNOMED Code(s): 59641418 (2) Leukocytosis Current Visit: Yes Status: Acute Code(s): D72.829 - ELEVATED WHITE BLOOD CELL COUNT, UNSPECIFIED SNOMED Code(s): 160872745 Plan: 1patient present to hospital with epigastric pain nausea and vomiting in this patient has been diagnosed in the outpatient setting with rash and apparently seem to have a problem with keeping it down and developing pneumonia with evidence of a long segment of esophagitis concerning for possibly Monik esophagitis with likely etiology. 2Patient has shown clinical improvement white count is normalized EGD scheduled for 01/12/2022 we will continue patient on Diflucan and monitor clinical course closely Time with Patient: Less than 30
--- NOTE | 2022-01-11 14:58 | P.PN ---
Subjective Progress Note Date: 01/11/22 CHIEF COMPLAINT: Abdominal pain HISTORY OF PRESENT ILLNESS: Patient continues to complain of epigastric pain after eating. No vomiting. Afebrile. WBC 9.4 Hgb 8.9 Patient seen and examined with Dr. Talbot PHYSICAL EXAM: VITAL SIGNS: Reviewed. GENERAL: Well-developed in no acute distress. HEENT: No sclera icterus. Extraocular movements grossly intact. Moist buccal mucosa. Head is atraumatic, normocephalic. ABDOMEN: Soft. Nondistended. Nontender. NEUROLOGIC: Alert and oriented. Cranial nerves II through XII grossly intact. ASSESSMENT: 1. Epigastric abdominal pain with computed tomography scan showing esophageal wall thickening suggestive of esophagitis 2. Oral candidiasis and possible esophageal candidiasis 3. Anemia with upper GI bleed PLAN: -Patient scheduled for EGD on , 01/12/[address] talbot -Nothing by mouth after midnight -Continue PPI -Continue Diflucan -Continue supportive care Physician Metallurgical Engineer note has been reviewed by physician. Signing provider agrees with the documented findings, assessment, and plan of care. Objective - Vital Signs Vital signs: Vital Signs Temp 97.8 F 01/11/22 12:07 Pulse 71 01/11/22 12:07 Resp 14 01/11/22 12:07 BP 157/91 01/11/22 12:07 Pulse Ox 96 01/11/22 12:07 FiO2 Intake & Output 01/10/22 01/11/22 01/11/22 18:59 06:59 18:59 Intake Total 718 600 Output Total 6031 500 4730 Balance -1132 -900 -700 Weight 79.379 kg Intake: Oral 718 600 Output: Urine 4560 962 7323 Other: Voiding Method Urinal Urinal # Voids 2 - Labs CBC & Chem 7: 01/10/22 10:16 01/10/22 10:16 Labs: Abnormal Lab Results - Last 24 Hours (Table) 01/10/22 01/10/22 01/11/22 Range/Units 16:32 20:29 06:30 POC Glucose (mg/dL) 278 H 268 H 348 H (70-110) mg/dL 01/11/22 Range/Units 11:34 POC Glucose (mg/dL) 222 H (70-110) mg/dL Microbiology - Last 24 Hours (Table) 01/08/22 04:45 Blood Culture - Preliminary Blood No Growth after 72 hours 01/08/22 04:30 Blood Culture - Preliminary Blood No Growth after 72 hours
--- NOTE | 2022-01-11 15:45 | P.PN ---
Subjective Progress Note Date: 01/11/22 Principal diagnosis: Chronic persistent asthma Associated COPD with ongoing history of smoking active Thrush and associated esophageal candidiasis Microcytic anemia likely upper GI bleed Abnormal computed tomography scan with mucosal thickening at GE junction Type 1 diabetes mellitus uncontrolled hyperglycemia diabetic gastroparesis 01/11/22 patient seen eval reexamined nausea vomiting slightly better, ongoing cough congestion is present, patient remains on IV Diflucan, and is scheduled for endoscopy tomorrow by Dr. Chris and labs and medications reviewed 01/10/2022, patient seen and evaluated examined during the rounds labs reviewed medications reviewed, less nauseous shortness of breath stable has ongoing intermittent cough which is dry and nonproductive, patient has been evaluated by general surgery planning for endoscopy patient remains on IV Diflucan, labs from today reviewed white cell count is 9.4 hemoglobin and hematocrit 8.9/29 sodium is 133, potassium 4.1, BUN/creatinine is 12/1.07, glucose remains high to 32 prior was 390 calcium is 8.1, blood cultures 2 has been negative, patient is status post a gastric pacemaker from [facility] about a year ago for diabetic severe gastroparesis 36-year-old male with chronic persistent asthma on inhaled corticosteroid developed some thrush started on nystatin swish and swallow following that developed nausea and vomiting came into the hospital for further evaluation no fever or chills, shortness of breath stable on bronchodilator therapy pain is mostly in epigastric area no radiation patient appears to be dehydrated and hyperglycemic had a computed tomography scan of the chest no pneumonia was seen some esophageal wall thickening noted suggestive esophagitis on computed tomography scan, blood cultures 2 negative, significant labs include WBC count down from 26-17 hemoglobin and hematocrit initially 1238 and now is 7.5/25 MCV is only 72 platelet count 296 glucose is 598 now 326, liver functions are normal, stool for occult blood pending but castrated occult blood is positive lisbeth vaca currently being treated with the statins, continuation of the home antipsychotic medicines along with Catapres, IV fluconazole IV fluid, in next 40 mg every 12, general surgery was consulted for the EGD. Chest x-ray is unremarkable Objective - Vital Signs Vital signs: Vital Signs Temp 97.8 F 01/11/22 12:07 Pulse 71 01/11/22 12:07 Resp 14 01/11/22 12:07 BP 157/91 01/11/22 12:07 Pulse Ox 96 01/11/22 12:07 FiO2 Intake & Output 01/10/22 01/11/22 01/11/22 18:59 06:59 18:59 Intake Total 718 600 Output Total 3264 163 0042 Balance -1132 900 -700 Weight 79.379 kg Intake: Oral 718 600 Output: Urine 6726 341 9137 Other: Voiding Method Urinal Urinal # Voids 2 - Exam - Constitutional General appearance: average body habitus, disheveled - EENT Eyes: EOMI, PERRLA Ears: bilateral: normal - Neck Carotids: bilateral: upstroke normal Thyroid: bilateral: normal size - Respiratory Respiratory: bilateral: CTA - Cardiovascular Rhythm: regular Heart sounds: normal: S1, S2 - Gastrointestinal General gastrointestinal: soft - Integumentary Integumentary: normal - Musculoskeletal Musculoskeletal: generalized weakness, strength equal bilaterally - Psychiatric Psychiatric: A&O x's 3, appropriate affect, intact judgment & insight - Labs CBC & Chem 7: 01/10/22 10:16 01/10/22 10:16 Labs: Abnormal Lab Results - Last 24 Hours (Table) 01/10/22 01/10/22 01/11/22 Range/Units 16:32 20:29 06:30 POC Glucose (mg/dL) 278 H 268 H 348 H (70-110) mg/dL 01/11/22 Range/Units 11:34 POC Glucose (mg/dL) 222 H (70-110) mg/dL Microbiology - Last 24 Hours (Table) 01/08/22 04:45 Blood Culture - Preliminary Blood No Growth after 72 hours 01/08/22 04:30 Blood Culture - Preliminary Blood No Growth after 72 hours Assessment and Plan Assessment: Chronic persistent asthma Associated COPD with ongoing history of smoking active Thrush and associated esophageal candidiasis Microcytic anemia likely upper GI bleed Abnormal computed tomography scan with mucosal thickening at GE junction Type 1 diabetes mellitus uncontrolled hyperglycemia Likely diabetic gastroparesis Plan: Continue IV fluconazole Bronchodilators Consider EGD and biopsies Management of diabetes and hypertension Further care plan and as per clinical response of the patient Time with Patient: Greater than 30
[2022-01-11 16:29] LABS: Glucose,Whole Blood 210 mg/dL (70-110)
[2022-01-11 16:48] LABS: Glucose,Whole Blood 219 mg/dL (70-110)
[2022-01-11] MEDS: MONTELUKAST 10 MG TAB PO SCH (20:13)
[2022-01-11] MEDS: DIVALPROEX ER 250 MG TAB.ER.24H PO SCH (20:13)
[2022-01-11 21:15] LABS: Glucose,Whole Blood 256 mg/dL (70-110)
--- NOTE | 2022-01-11 22:58 | PN ---
PROGRESS NOTE SUBJECTIVE: A 36-year-old white male admitted for gastroparesis, nausea, vomiting. Abnormal CT scan of the chest showing esophagitis of severe nature, started on Diflucan IV. Waiting for EGD to be done tomorrow. Hemoglobin has been low. We will monitor him for bleeding. Nothing by mouth after midnight. Continue PPI IV q.12 hours, Diflucan 200 mg IV daily. Monitor hemoglobin. OBJECTIVE: CARDIOVASCULAR: S1, S2. LUNGS: Clear. GI: Soft. ASSESSMENT AND PLAN: Legally he is blind. Monitor hemoglobin. Today's hemoglobin is pending. He went from 7.5 up to 8.9 yesterday. We will continue to monitor hemoglobin and possible discharge home once gastroparesis resolves, and we will find out what is going on in his esophagus with EGD planned for in the morning. Continue with Diflucan as mentioned above. EGD in the morning. Continue nausea medications, etc. He is getting diabetes type 1 diet. MMODL / IJN: [id number] /
[2022-01-12] MEDS: SODIUM CHLORIDE 0.9% 1,000 ML IV SCH ×4 (00:21→11:38)
[2022-01-12] MEDS: ONDANSETRON 4 MG/2 ML VIAL IVP PRN ×2 (01:50→16:58)
[2022-01-12] MEDS: NON FORMULARY DRUG (Difluprednate [Difluprednate Ophth Soln] 5 ML Ml) RIGHT EYE SCH ×5 (03:14→21:02)
[2022-01-12 05:49] LABS: Anisocytosis Slight; Basophils % (A) 1 %; Eosinophils % (A) 0 %; HCT 29.9 % (39.0-53.0); HGB 9.2 gm/dL (13.0-17.5); Hypochromasia Marked; Lymphocytes # (A) 1.8 k/uL (1.0-4.8); Lymphocytes % (A) 20 %; MCH 22.2 pg (25.0-35.0); MCHC 30.7 g/dL (31.0-37.0); MCV 72.3 fL (80.0-100.0); Mean Platelet Volume 7.5; Microcytosis Moderate; Monocytes # (A) 0.3 k/uL (0-1.0); Monocytes % (A) 3 %; Neutrophils # (A) 6.5 k/uL (1.3-7.7); Neutrophils % (A) 71 %; Platelet Count 336 k/uL (150-450); RBC 4.14 m/uL (4.30-5.90); RDW 16.9 % (11.5-15.5); WBC 9.1 k/uL (3.8-10.6)
[2022-01-12 06:33] LABS: ALT 16 U/L (4-49); AST 18 U/L (17-59); African American GFR (CKD) >90 (>60 ml/min/1.73 sqM); Albumin 3.3 g/dL (3.5-5.0); Albumin/Globulin Ratio 1.5; Alkaline Phosphatase 88 U/L (38-126); Anion Gap 16 mmol/L; Blood Urea Nitrogen 12 mg/dL (9-20); Calcium 8.3 mg/dL (8.4-10.2); Carbon Dioxide 16 mmol/L (22-30); Chloride 103 mmol/L (98-107); Globulin 2.2 g/dL; Glucose 333 mg/dL (74-99); Non-African American GFR(CKD) >90 (>60 ml/min/1.73 sqM); Potassium 4.2 mmol/L (3.5-5.1); Sodium 135 mmol/L (137-145); Total Bilirubin 0.4 mg/dL (0.2-1.3); Total Protein 5.5 g/dL (6.3-8.2)
[2022-01-12 06:39] LABS: Glucose,Whole Blood 383 mg/dL (70-110)
[2022-01-12] MEDS: INSULIN ASPART (NovoLOG) 100 UNIT/ML VIAL SQ SCH ×7 (06:49→21:01)
[2022-01-12] MEDS: LURASIDONE 40 MG TAB PO SCH ×3 (06:49→18:37)
[2022-01-12] MEDS: ATROPINE OPHTH SOLN 1% 5ML BTL BOTH EYES SCH (09:16)
[2022-01-12] MEDS: prednisoLONE ACETATE 1% OPHTH DROPS 5 ML BTL LEFT EYE SCH ×2 (09:16→21:00)
[2022-01-12] MEDS: HYDROmorphone 1 MG/ML 1 ML SYRINGE IVP PRN ×3 (09:18→18:14)
[2022-01-12] MEDS: PANTOPRAZOLE 40 MG/10 ML VIAL IVP SCH ×2 (09:19→20:59)
[2022-01-12] MEDS: BENZTROPINE MESYLATE 1 MG TAB PO SCH ×2 (09:20→20:59)
[2022-01-12] MEDS: METOPROLOL TARTRATE 50 MG TAB PO SCH ×2 (09:20→20:59)
[2022-01-12] MEDS: ATORVASTATIN 10 MG TAB PO SCH (09:20)
[2022-01-12] MEDS: diazePAM 2 MG TAB PO SCH ×2 (09:20→20:58)
[2022-01-12] MEDS: lisinopriL 20 MG TAB PO SCH (09:20)
[2022-01-12] MEDS: NICOTINE 14MG/24HR PATCH TRANSDERM SCH (09:21)
[2022-01-12] MEDS: FLUCONAZOLE IN NACL,ISO-OSM 200 MG in SALINE 1 100ML.BAG IVPB SCH (11:39)
[2022-01-12] MEDS: PROCHLORPERAZINE INJ 10 MG/2 ML VIAL IVP PRN (11:39)
[2022-01-12 12:12] LABS: Glucose,Whole Blood 276 mg/dL (70-110)
[2022-01-12] MEDS: [UNRECOGNIZED DRUG - OTHER] MISCELLANE SCH (12:47)
[2022-01-12] MEDS: INSULIN ASPART 100 UNIT/ML MISCELLANE SCH (12:47)
[2022-01-12] MEDS ORDERED: PROPOFOL 10 MG/ML 20 ML VIAL IV ONE (13:12)
--- NOTE | 2022-01-12 13:19 | P.OP ---
Date of Procedure: 01/12/22 Preoperative Diagnosis: GERD Postoperative Diagnosis: Moderate size hiatal hernia Esophagitis Procedure(s) Performed: EGD Anesthesia: MAC Surgeon: Armando Arreaga Pathology: other (Esophagus) Condition: stable Disposition: PACU Description of Procedure: The patient's placed on the endoscopy table in the lateral position. He received IV sedation. The gastro-/oropharynx passed in the esophagus and stomach. Scope then placed through the pylorus. The first and second portion of the duodenum appeared normal. Scope was then brought back the antrum this was minimal inflamed. The scope was retroflexed the patient had a moderate size hiatal hernia. The GE junction was at 38 cm. The distal esophagus appeared inflamed. This was biopsied. The proximal esophagus appeared normal. Scope withdrawn for patient.
[2022-01-12] MEDS ORDERED: IV FLUID CONTINUATION 900 ML IV ONE (13:20)
[2022-01-12 16:58] LABS: Glucose,Whole Blood 235 mg/dL (70-110)
[2022-01-12] MEDS ORDERED: QUEtiapine 50 MG TAB PO SCH (19:00)
[2022-01-12 20:47] LABS: Glucose,Whole Blood 212 mg/dL (70-110)
[2022-01-12] MEDS ORDERED: LACTATED RINGERS 1,000 ML IV SCH (20:55)
[2022-01-12] MEDS: MONTELUKAST 10 MG TAB PO SCH (20:58)
[2022-01-12] MEDS: DIVALPROEX ER 250 MG TAB.ER.24H PO SCH (20:58)
[2022-01-12] MEDS: MORPHINE SULFATE 4 MG/ML SYRINGE IV PRN (22:07)
[2022-01-12] MEDS: QUEtiapine 50 MG TAB PO SCH (22:47)
[2022-01-13] MEDS: SODIUM CHLORIDE 0.9% 1,000 ML IV SCH ×3 (00:49→14:48)
[2022-01-13] MEDS: NON FORMULARY DRUG (Difluprednate [Difluprednate Ophth Soln] 5 ML Ml) RIGHT EYE SCH ×4 (01:10→11:41)
[2022-01-13] MEDS: HYDROmorphone 1 MG/ML 1 ML SYRINGE IVP PRN ×3 (02:50→11:41)
[2022-01-13 06:57] LABS: Glucose,Whole Blood 368 mg/dL (70-110)
[2022-01-13] MEDS: INSULIN ASPART (NovoLOG) 100 UNIT/ML VIAL SQ SCH ×4 (06:59→12:23)
[2022-01-13 07:55] VITALS: RESP 20
[2022-01-13] MEDS: PANTOPRAZOLE 40 MG/10 ML VIAL IVP SCH (08:15)
[2022-01-13] MEDS: ATORVASTATIN 10 MG TAB PO SCH (08:16)
[2022-01-13] MEDS: NICOTINE 14MG/24HR PATCH TRANSDERM SCH (08:16)
[2022-01-13] MEDS: BENZTROPINE MESYLATE 1 MG TAB PO SCH (08:17)
[2022-01-13] MEDS: lisinopriL 20 MG TAB PO SCH (08:17)
[2022-01-13] MEDS: METOPROLOL TARTRATE 50 MG TAB PO SCH (08:17)
[2022-01-13] MEDS: diazePAM 2 MG TAB PO SCH (08:18)
[2022-01-13] MEDS: ATROPINE OPHTH SOLN 1% 5ML BTL BOTH EYES SCH (08:18)
[2022-01-13] MEDS: prednisoLONE ACETATE 1% OPHTH DROPS 5 ML BTL LEFT EYE SCH (08:19)
[2022-01-13] MEDS: QUEtiapine 50 MG TAB PO SCH (08:19)
[2022-01-13] MEDS: INSULIN ASPART 100 UNIT/ML MISCELLANE SCH (10:39)
[2022-01-13] MEDS: [UNRECOGNIZED DRUG - OTHER] MISCELLANE SCH (10:39)
[2022-01-13] MEDS: FLUCONAZOLE IN NACL,ISO-OSM 200 MG in SALINE 1 100ML.BAG IVPB SCH (11:41)
[2022-01-13 12:05] LABS: Glucose,Whole Blood 255 mg/dL (70-110)
[2022-01-13] MEDS: ONDANSETRON 4 MG/2 ML VIAL IVP PRN (12:36)
--- NOTE | 2022-01-13 13:35 | PN ---
PROGRESS NOTE DATE OF SERVICE: 01/12/2022 SUBJECTIVE: This a 36-year-old white male, status post EGD which showed esophagitis due to fungal infection. He remains on Diflucan, possibly switch to oral and advance the diet, may be able to go home. His hemoglobin is increasing. His dehydration and vomiting have stopped. We are going to advance his diet and see how he does. Start his home medications. OBJECTIVE: CARDIOVASCULAR: S2. Lungs clear. GI: Soft. Still some mild tenderness over epigastric area. HEMATOLOGY: Negative for Homans. PSYCH: Fair mood and affect. ASSESSMENT: Insulin-dependent diabetes mellitus, improved with a 5+ scale regular insulin dehydration due to gastroparesis, nausea, vomiting, and esophagitis due to Monik. Continue with Diflucan and possible go home to switch to oral Diflucan. Prognosis is guarded. Please see further orders. MMODL / IJN: [id number] /
--- NOTE | 2022-01-13 14:15 | P.PN ---
Subjective Progress Note Date: 01/13/22 CHIEF COMPLAINT: Abdominal pain HISTORY OF PRESENT ILLNESS: Patient is sleepy today. He was able to tolerate diet last night. He was just starting to work on his lunch. He denies any nausea or vomiting. He does have history of heartburn. Patient had EGD completed yesterday showing a moderate hiatal hernia and esophagitis. Biopsies were obtained. Afebrile. Patient seen and examined with Dr. Arreaga PHYSICAL EXAM: VITAL SIGNS: Reviewed. GENERAL: Well-developed in no acute distress. HEENT: No sclera icterus. Extraocular movements grossly intact. Moist buccal mucosa. Head is atraumatic, normocephalic. ABDOMEN: Soft. Nondistended. Nontender. NEUROLOGIC: Alert and oriented. Cranial nerves II through XII grossly intact. ASSESSMENT: 1. Epigastric abdominal pain likely due to esophagitis and moderate hiatal hernia 2. Oral candidiasis and possible esophageal candidiasis 3. Anemia with upper GI bleed PLAN: -Recommend repair of hiatal hernia outpatient -Continue PPI -Continue Diflucan -Continue regular diet -Continue supportive care Physician Ostomy Care Nurse note has been reviewed by physician. Signing provider agrees with the documented findings, assessment, and plan of care. Objective - Vital Signs Vital signs: Vital Signs Temp 98.1 F 01/13/22 07:00 Pulse 105 H 01/13/22 07:00 Resp 20 01/13/22 07:00 BP 114/69 01/13/22 07:00 Pulse Ox 98 01/13/22 07:28 FiO2 Intake & Output 01/12/22 01/13/22 01/13/22 18:59 06:59 18:59 Intake Total 500 Output Total 700 Balance -200 Intake: IV 200 Oral 300 Output: Urine 700 Other: Voiding Method Urinal Urinal # Voids 2 - Labs CBC & Chem 7: 01/12/22 04:52 01/12/22 04:52 Labs: Abnormal Lab Results - Last 24 Hours (Table) 01/12/22 01/12/22 01/13/22 Range/Units 16:50 20:46 06:56 POC Glucose (mg/dL) 235 H 212 H 368 H (70-110) mg/dL 01/13/22 Range/Units 12:03 POC Glucose (mg/dL) 255 H (70-110) mg/dL Microbiology - Last 24 Hours (Table) 01/08/22 04:45 Blood Culture - Preliminary Blood No Growth after 120 hours 01/08/22 04:30 Blood Culture - Preliminary Blood No Growth after 120 hours
[2022-01-13 14:37] VITALS: BP 136/91; PULSE 95; TEMP 97.8
[2022-01-14] MEDS ORDERED: FLUCONAZOLE 100 MG TAB PO SCH (09:00)
--- NOTE | 2022-01-14 14:16 | P.PN ---
Subjective Progress Note Date: 01/12/22 Principal diagnosis: Chronic persistent asthma Associated COPD with ongoing history of smoking active Thrush and associated esophageal candidiasis Microcytic anemia likely upper GI bleed Abnormal computed tomography scan with mucosal thickening at GE junction Type 1 diabetes mellitus uncontrolled hyperglycemia diabetic gastroparesis 01/12/2022, patient seen eval examined overall doing well currently recovering from endoscopy, status post her biopsy of the GE junction results pending mild inflammation noted inspected, for details please see path report and operative r eport from pulmonary standpoint patient tolerated procedure well, surgery and the IV recommendation noted and appreciated 01/11/22 patient seen eval reexamined nausea vomiting slightly better, ongoing cough congestion is present, patient remains on IV Diflucan, and is scheduled for endoscopy tomorrow by Dr. Chris and labs and medications reviewed 01/10/2022, patient seen and evaluated examined during the rounds labs reviewed medications reviewed, less nauseous shortness of breath stable has ongoing intermittent cough which is dry and nonproductive, patient has been evaluated by general surgery planning for endoscopy patient remains on IV Diflucan, labs from today reviewed white cell count is 9.4 hemoglobin and hematocrit 8.9/29 sodium is 133, potassium 4.1, BUN/creatinine is 12/1.07, glucose remains high to 32 prior was 390 calcium is 8.1, blood cultures 2 has been negative, patient is status post a gastric pacemaker from [facility] about a year ago for diabetic severe gastroparesis 36-year-old male with chronic persistent asthma on inhaled corticosteroid developed some thrush started on nystatin swish and swallow following that developed nausea and vomiting came into the hospital for further evaluation no fever or chills, shortness of breath stable on bronchodilator therapy pain is mostly in epigastric area no radiation patient appears to be dehydrated and hyperglycemic had a computed tomography scan of the chest no pneumonia was seen some esophageal wall thickening noted suggestive esophagitis on computed tomography scan, blood cultures 2 negative, significant labs include WBC count down from 26-17 hemoglobin and hematocrit initially 1238 and now is 7.5/25 MCV is only 72 platelet count 296 glucose is 598 now 326, liver functions are normal, stool for occult blood pending but castrated occult blood is positive patient currently being treated with the statins, continuation of the home antipsychotic medicines along with Catapres, IV fluconazole IV fluid, in next 40 mg every 12, general surgery was consulted for the EGD. Chest x-ray is unremarkable Objective - Vital Signs Vital signs: Vital Signs Temp 98.5 F 01/12/22 07:00 Pulse 92 01/12/22 07:00 Resp 18 01/12/22 07:00 BP 127/81 01/12/22 07:00 Pulse Ox 96 01/12/22 07:00 FiO2 Intake & Output 01/11/22 01/12/22 01/12/22 18:59 06:59 18:59 Intake Total 840 200 Output Total 1300 3375 300 Balance -460 -3375 -100 Weight 79.379 kg Intake: IV 200 Oral 840 0 Output: Urine 1300 3375 300 Other: Voiding Method Urinal - Exam - Constitutional General appearance: average body habitus, disheveled - EENT Eyes: EOMI, PERRLA Ears: bilateral: normal - Neck Carotids: bilateral: upstroke normal Thyroid: bilateral: normal size - Respiratory Respiratory: bilateral: CTA - Cardiovascular Rhythm: regular Heart sounds: normal: S1, S2 - Gastrointestinal General gastrointestinal: soft - Integumentary Integumentary: normal - Musculoskeletal Musculoskeletal: generalized weakness, strength equal bilaterally - Psychiatric Psychiatric: A&O x's 3, appropriate affect, intact judgment & insight - Labs CBC & Chem 7: 01/12/22 04:52 01/12/22 04:52 Labs: Abnormal Lab Results - Last 24 Hours (Table) 01/11/22 01/11/22 01/11/22 Range/Units 16:27 16:47 21:13 RBC (4.30-5.90) m/uL Hgb (13.0-17.5) gm/dL Hct (39.0-53.0) % MCV (80.0-100.0) fL MCH (25.0-35.0) pg MCHC (31.0-37.0) g/dL RDW (11.5-15.5) % Sodium (137-145) mmol/L Carbon Dioxide (22-30) mmol/L Glucose (74-99) mg/dL POC Glucose (mg/dL) 210 H 219 H 256 H (70-110) mg/dL Calcium (8.4-10.2) mg/dL Total Protein (6.3-8.2) g/dL Albumin (3.5-5.0) g/dL 01/12/22 01/12/22 01/12/22 Range/Units 04:52 04:52 06:37 RBC 4.14 L (4.30-5.90) m/uL Hgb 9.2 L (13.0-17.5) gm/dL Hct 29.9 L (39.0-53.0) % MCV 72.3 L (80.0-100.0) fL MCH 22.2 L (25.0-35.0) pg MCHC 30.7 L (31.0-37.0) g/dL RDW 16.9 H (11.5-15.5) % Sodium 135 L (137-145) mmol/L Carbon Dioxide 16 L (22-30) mmol/L Glucose 333 H (74-99) mg/dL POC Glucose (mg/dL) 383 H (70-110) mg/dL Calcium 8.3 L (8.4-10.2) mg/dL Total Protein 5.5 L (6.3-8.2) g/dL Albumin 3.3 L (3.5-5.0) g/dL 01/12/22 Range/Units 12:06 RBC (4.30-5.90) m/uL Hgb (13.0-17.5) gm/dL Hct (39.0-53.0) % MCV (80.0-100.0) fL MCH (25.0-35.0) pg MCHC (31.0-37.0) g/dL RDW (11.5-15.5) % Sodium (137-145) mmol/L Carbon Dioxide (22-30) mmol/L Glucose (74-99) mg/dL POC Glucose (mg/dL) 276 H (70-110) mg/dL Calcium (8.4-10.2) mg/dL Total Protein (6.3-8.2) g/dL Albumin (3.5-5.0) g/dL Microbiology - Last 24 Hours (Table) 01/08/22 04:45 Blood Culture - Preliminary Blood No Growth after 96 hours 01/08/22 04:30 Blood Culture - Preliminary Blood No Growth after 96 hours Assessment and Plan Assessment: Chronic persistent asthma Associated COPD with ongoing history of smoking active Thrush and associated esophageal candidiasis however other pathologies cannot be excluded Microcytic anemia likely upper GI bleed Abnormal computed tomography scan with mucosal thickening at GE junction Type 1 diabetes mellitus uncontrolled hyperglycemia Likely diabetic gastroparesis Plan: Continue IV fluconazole, can however be changed to oral and 7 discharge Bronchodilators Status post EGD and biopsies, earlier today Management of diabetes and hypertension Further care plan and as per clinical response of the patient Time with Patient: Greater than 30
--- NOTE | 2022-01-17 11:31 | CDI ---
Documentation Clarification Form Date: 01/13/22 From: Nakita Wilson Admit Date: 01/10/2022 11:17:00 AM Patient Name: Tani Slater Visit Number: [id number] Discharge Date: 01/13/2022 04:23:00 PM ATTENTION: The Clinical Documentation Specialists (CDI) and [facility] Coding Staff appreciate your assistance in clarifying documentation. Please respond to the clarification below the line at the bottom and electronically sign. The CDI & [facility] Coding staff will review the response and follow-up if needed. Please note: Queries are made part of the Legal Health Record. If you have any questions, please contact the author of this message via ITS. Dr. Wisam Vickers, The patients principal diagnosis the diagnosis that was chiefly responsible for the admission - has not been clearly identified and clarification is requested. The patient presented as observation on 01/08 with sepsis of unclear etiology and tachycardia. He was changed to Inpatient on 01/10. History/Risk factors: T1DM w gastroparesis, neuropathy & hyperglycemia, thrush, candidia esophagitis, UGI bleeding, COPD, chronic persistent asthma, iron deficiency anemia secondary to blood loss, legally blind Clinical Indicators: He has chronic persistent asthma associated with COPD, ongoing nicotine addiction, thrush, esophagitis, candidiasis, microcytic anemia likely an upper GI bleed, with mucosal thickening, diabetes type 1, uncontrolled hyperglycemia, diabetic gastroparesis with gastric pump, prerenal azotemia, IV fluconazole, bronchodilators, EGD and biopsies, hypertension. Wait for to do an EGD. EGD done 01/12: Moderate size hiatal hernia, Esophagitis. Path findings: Necroinflammatory material consistent with erosive esophagitis. 01/08 Radiology findings: Long segment of circumferential esophageal wall thickening, running suggest esophagitis further workup and direct visualization recommended. Vital Signs: T97.9, P 74, R 14, BP 146/85 , O2 93 (RA) Treatment: EGD w BX, IV Diflucan In your professional opinion, can you please clarify which diagnosis, after study, was the reason chiefly responsible for the admission on 01/10? [ ] Sepsis ruled in and POA [ ] Candidial thrush, POA [ ] Other, please specify [ ] Unable to determine MTDD
--- NOTE | 2022-01-19 14:38 | P.PN ---
Subjective Progress Note Date: 01/12/22 Principal diagnosis: Leukocytosis and esophagitis Patient is a 36-year male with a past medical history significant of insulin-dependent Beatties mellitus recently diagnosed with a rash in the outpatient setting presented to hospital with epigastric abdominal pain and n ausea and vomiting patient did have a CT of the chest that shows long segment of circumferential esophageal wall thickening suggestive of esophagitis. Patient is status post EGD completed on 01/12/2022 with evidence of esophagitis didn't mention any mass status post biopsy which is currently pending On today's evaluation that is 01/12/2022 the patient remains to be afebrile, patient is breathing comfortably on room air patient denies having any chest pain or shortness of breath epigastric pain has decreased intensity with no further vomiting and no diarrhea Objective - Vital Signs Vital signs: Vital Signs Temp 98.5 F 01/12/22 07:00 Pulse 92 01/12/22 07:00 Resp 18 01/12/22 07:00 BP 127/81 01/12/22 07:00 Pulse Ox 96 01/12/22 07:00 FiO2 Intake & Output 01/11/22 01/12/22 01/12/22 18:59 06:59 18:59 Intake Total 840 200 Output Total 1300 3375 300 Balance -460 -3375 -100 Weight 79.379 kg Intake: IV 200 Oral 840 0 Output: Urine 1300 3375 300 Other: Voiding Method Urinal - Exam GENERAL DESCRIPTION: Middle-aged male lying in bed, no distress. No tachypnea or accessory muscle of respiration use. LUNGS: Unlabored breathing. Clear to auscultation anteriorly. No wheeze or crackle. HEART: S1, S2, regular rate and rhythm. No loud murmur ABDOMEN: Soft, mild epigastric tenderness wound on home on Augmentin pulm pulm pulm pulm pulm pulm pulm EXTREMITIES: No edema of feet. - Labs CBC & Chem 7: 01/12/22 04:52 01/12/22 04:52 Labs: Abnormal Lab Results - Last 24 Hours (Table) 01/11/22 01/11/22 01/11/22 Range/Units 16:27 16:47 21:13 RBC (4.30-5.90) m/uL Hgb (13.0-17.5) gm/dL Hct (39.0-53.0) % MCV (80.0-100.0) fL MCH (25.0-35.0) pg MCHC (31.0-37.0) g/dL RDW (11.5-15.5) % Sodium (137-145) mmol/L Carbon Dioxide (22-30) mmol/L Glucose (74-99) mg/dL POC Glucose (mg/dL) 210 H 219 H 256 H (70-110) mg/dL Calcium (8.4-10.2) mg/dL Total Protein (6.3-8.2) g/dL Albumin (3.5-5.0) g/dL 01/12/22 01/12/22 01/12/22 Range/Units 04:52 04:52 06:37 RBC 4.14 L (4.30-5.90) m/uL Hgb 9.2 L (13.0-17.5) gm/dL Hct 29.9 L (39.0-53.0) % MCV 72.3 L (80.0-100.0) fL MCH 22.2 L (25.0-35.0) pg MCHC 30.7 L (31.0-37.0) g/dL RDW 16.9 H (11.5-15.5) % Sodium 135 L (137-145) mmol/L Carbon Dioxide 16 L (22-30) mmol/L Glucose 333 H (74-99) mg/dL POC Glucose (mg/dL) 383 H (70-110) mg/dL Calcium 8.3 L (8.4-10.2) mg/dL Total Protein 5.5 L (6.3-8.2) g/dL Albumin 3.3 L (3.5-5.0) g/dL 01/12/22 Range/Units 12:06 RBC (4.30-5.90) m/uL Hgb (13.0-17.5) gm/dL Hct (39.0-53.0) % MCV (80.0-100.0) fL MCH (25.0-35.0) pg MCHC (31.0-37.0) g/dL RDW (11.5-15.5) % Sodium (137-145) mmol/L Carbon Dioxide (22-30) mmol/L Glucose (74-99) mg/dL POC Glucose (mg/dL) 276 H (70-110) mg/dL Calcium (8.4-10.2) mg/dL Total Protein (6.3-8.2) g/dL Albumin (3.5-5.0) g/dL Microbiology - Last 24 Hours (Table) 01/08/22 04:45 Blood Culture - Preliminary Blood No Growth after 96 hours 01/08/22 04:30 Blood Culture - Preliminary Blood No Growth after 96 hours Assessment and Plan (1) Esophagitis Status: Acute Code(s): K20.90 - ESOPHAGITIS, UNSPECIFIED WITHOUT BLEEDING SNOMED Code(s): 57648021 (2) Leukocytosis Status: Acute Code(s): D72.829 - ELEVATED WHITE BLOOD CELL COUNT, UNSPECIFIED SNOMED Code(s): 727233109 Plan: 1patient present to hospital with epigastric pain nausea and vomiting in this patient has been diagnosed in the outpatient setting with rash and apparently seem to have a problem with keeping it down and developing pneumonia with evidence of a long segment of esophagitis concerning for possibly Monik esophagitis with likely etiology. 2Patient slowly clinically improving and the patient white count has normalized patient to continue with the Diflucan will follow the biopsy report Time with Patient: Less than 30
--- NOTE | 2022-01-19 14:39 | P.PN ---
Subjective Progress Note Date: 01/13/22 Principal diagnosis: Leukocytosis and esophagitis Patient is a 36-year male with a past medical history significant of insulin-dependent Beatties mellitus recently diagnosed with a rash in the outpatient setting presented to hospital with epigastric abdominal pain and n ausea and vomiting patient did have a CT of the chest that shows long segment of circumferential esophageal wall thickening suggestive of esophagitis. Patient is status post EGD completed on 01/12/2022 with evidence of esophagitis didn't mention any mass status post biopsy which is currently pending On today's evaluation that is 01/13/2022 the patient denies any fever or chills, patient is breathing comfortably on room air patient denies having any chest pain or shortness of breath, the patient epigastric pain has decreased intensity with no further vomiting and no diarrhea Objective - Vital Signs Vital signs: Vital Signs Temp 98.1 F 01/13/22 07:00 Pulse 105 H 01/13/22 07:00 Resp 20 01/13/22 07:00 BP 114/69 01/13/22 07:00 Pulse Ox 98 01/13/22 07:28 FiO2 Intake & Output 01/12/22 01/13/22 01/13/22 18:59 06:59 18:59 Intake Total 500 Output Total 700 Balance -200 Intake: IV 200 Oral 300 Output: Urine 700 Other: Voiding Method Urinal Urinal # Voids 2 - Exam GENERAL DESCRIPTION: Middle-aged male lying in bed, no distress. No tachypnea or accessory muscle of respiration use. LUNGS: Unlabored breathing. Clear to auscultation anteriorly. No wheeze or crackle. HEART: S1, S2, regular rate and rhythm. No loud murmur ABDOMEN: Soft, mild epigastric tenderness wound on home on Augmentin pulm pulm pulm pulm pulm pulm pulm EXTREMITIES: No edema of feet. - Labs CBC & Chem 7: 01/12/22 04:52 01/12/22 04:52 Labs: Abnormal Lab Results - Last 24 Hours (Table) 01/12/22 01/12/22 01/13/22 Range/Units 16:50 20:46 06:56 POC Glucose (mg/dL) 235 H 212 H 368 H (70-110) mg/dL 01/13/22 Range/Units 12:03 POC Glucose (mg/dL) 255 H (70-110) mg/dL Microbiology - Last 24 Hours (Table) 01/08/22 04:45 Blood Culture - Preliminary Blood No Growth after 120 hours 01/08/22 04:30 Blood Culture - Preliminary Blood No Growth after 120 hours Assessment and Plan (1) Esophagitis Status: Acute Code(s): K20.90 - ESOPHAGITIS, UNSPECIFIED WITHOUT BLEEDING SNOMED Code(s): 95732863 (2) Leukocytosis Status: Acute Code(s): D72.829 - ELEVATED WHITE BLOOD CELL COUNT, UNSPECIFIED SNOMED Code(s): 377949290 Plan: 1patient present to hospital with epigastric pain nausea and vomiting in this patient has been diagnosed in the outpatient setting with rash and apparently seem to have a problem with keeping it down and developing pneumonia with evidence of a long segment of esophagitis concerning for possibly Monik esophagitis with likely etiology. 2Patient slowly clinically improving and the patient white count has normalized patient to continue with the Diflucan at least 2-3 weeks on discharge and close the patient follow-up Time with Patient: Less than 30
--- NOTE | 2022-01-21 03:35 | PN ---
PROGRESS NOTE Candidal thrush, sepsis was ruled in. MMODL / IJN: [id number] /
--- NOTE | 2022-01-24 06:15 | DS ---
DISCHARGE SUMMARY MEDICATIONS: 1. Lopressor 100 b.i.d. 2. Zestril 20 mg daily. 3. Seroquel 100 at night and 50 more at night. 4. Singulair 10 mg daily. 5. Depakote ER 750 daily. 6. Catapres 0.2 daily. 7. Lipitor 10 mg daily. 8. Trelegy Ellipta 200/5 one puff b.i.d. 9. Prednisolone acetate. 10.Pred Forte drops in the left eye b.i.d. 11.Compazine 10 mg q.8. 12.Prilosec 40 daily. 13.Latuda 40 daily. 14. 120 daily. 15. 0.01 units subcu pump continuous, currently 20 mg daily, which was discontinued. 16.Difluprednate ophthalmologic solution right eye as directed at night family 2 mg daily, 4 mg at night, which at 1 mg b.i.d. 17.Atropine sulfate eye drops p.r.n. 18.Protonix 40 mg daily. 19.Clonidine patch 0.2 mg t.i.d. CONDITION: Stable. PROGNOSIS: Guarded. FOLLOWUP: As tolerated. MMODL / IJN: [id number] /
== END 2022-01-13 16:23 | disposition home or self-care (01) | DRG 872 ==
LOC: EC 01:42 → 6NMEDSUR 04:13 → OBSVTOIN 01-10 11:17
PROVIDERS: ADMIT Family Medicine; ATTEND Family Medicine
PROC: 0DB38ZX Excision of Lower Esophagus, Via Natural or Artificial Opening Endoscopic, Diagnostic (ICD-10-PCS; principal; 2022-01-12 11:30)
DX: A41.9 Sepsis, unspecified organism (principal); B37.0 Candidal stomatitis; K92.2 Gastrointestinal hemorrhage, unspecified; F31.30 Bipolar disorder, current episode depressed, mild or moderate severity, unspecified; B37.81 Candidal esophagitis; E10.43 Type 1 diabetes mellitus with diabetic autonomic (poly)neuropathy; E10.40 Type 1 diabetes mellitus with diabetic neuropathy, unspecified; K31.84 Gastroparesis; E10.65 Type 1 diabetes mellitus with hyperglycemia; J44.9 Chronic obstructive pulmonary disease, unspecified; Z79.4 Long term (current) use of insulin; Z28.310 Unvaccinated for COVID-19; D50.0 Iron deficiency anemia secondary to blood loss (chronic); J45.30 Mild persistent asthma, uncomplicated; H54.8 Legal blindness, as defined in USA; E86.0 Dehydration; I10 Essential (primary) hypertension; K44.9 Diaphragmatic hernia without obstruction or gangrene; H40.9 Unspecified glaucoma; F41.9 Anxiety disorder, unspecified; F17.210 Nicotine dependence, cigarettes, uncomplicated; Z71.6 Tobacco abuse counseling; Z79.84 Long term (current) use of oral hypoglycemic drugs; Z79.51 Long term (current) use of inhaled steroids; Z79.899 Other long term (current) drug therapy; Z96.41 Presence of insulin pump (external) (internal); Z87.11 Personal history of peptic ulcer disease; Z88.0 Allergy status to penicillin; Z88.8 Allergy status to other drugs, medicaments and biological substances; Z88.1 Allergy status to other antibiotic agents; Z91.040 Latex allergy status
CPT/HCPCS: 36415; 43239; 71045; 71250; 80048; 80053; 81003; 82271; 83036; 83735; 83880; 84100; 84443; 84484; 85025; 85610; 85730; 87040; 88305; 93005; 93306; 94760; 96361; 96365; 96366; 96367; 96375; 96376; 99285

== ENCOUNTER 2022-09-03 13:54 | Inpatient (IN) | payer MEDICARE, OTHER ==
[2022-09-03 14:07] LABS: Glucose,Whole Blood 509 mg/dL (70-110)
[2022-09-03] MEDS ORDERED: SODIUM CHLORIDE 0.9% 1,000 ML IV STA (14:09)
[2022-09-03 14:35] LABS: Basophils % (A) 0 %; Eosinophils % (A) 0 %; HCT 40.2 % (39.0-53.0); HGB 14.1 gm/dL (13.0-17.5); Lymphocytes # (A) 1.6 k/uL (1.0-4.8); Lymphocytes % (A) 13 %; MCH 31.2 pg (25.0-35.0); MCV 88.9 fL (80.0-100.0); Mean Platelet Volume 7.8; Monocytes # (A) 0.5 k/uL (0-1.0); Monocytes % (A) 4 %; Neutrophils # (A) 10.1 k/uL (1.3-7.7); Neutrophils % (A) 82 %; Platelet Count 306 k/uL (150-450); RBC 4.52 m/uL (4.30-5.90); RDW 12.7 % (11.5-15.5); WBC 12.4 k/uL (3.8-10.6)
[2022-09-03 14:48] LABS: African American GFR (CKD) 53 (>60 ml/min/1.73 sqM); Anion Gap 29 mmol/L; Blood Urea Nitrogen 24 mg/dL (9-20); Calcium 9.2 mg/dL (8.4-10.2); Chloride 96 mmol/L (98-107); Magnesium 2.5 mg/dL (1.6-2.3); Non-African American GFR(CKD) 46 (>60 ml/min/1.73 sqM); Potassium 5.1 mmol/L (3.5-5.1); Sodium 132 mmol/L (137-145)
[2022-09-03 14:51] LABS: Carbon Dioxide 7 mmol/L (22-30); Glucose 539 mg/dL (74-99)
[2022-09-03 14:56] LABS: VBG PH 7.25 (7.31-7.41)
[2022-09-03] MEDS ORDERED: DEXTROSE 50% SYRINGE 50 ML IVP PRN ×2 (14:57)
[2022-09-03] MEDS ORDERED: Potassium Replacement Protocol 1 EACH MISC MISCELLANE PRN (14:57)
[2022-09-03] MEDS ORDERED: Magnesium Replacement Protocol 1 EACH MISC MISCELLANE PRN (14:57)
[2022-09-03] MEDS ORDERED: INSULIN REGULAR BOLUS (FROM DRIP BAG) IV ONE (14:57)
[2022-09-03] MEDS ORDERED: HYDROmorphone 0.5 MG/0.5 ML SYRINGE IVP STA ×2 (14:59→18:40)
--- NOTE | 2022-09-03 15:15 | ED ---
General Adult HPI - General Chief complaint: Nausea/Vomiting/Diarrhea Stated complaint: TYPE 1 diabetic; vomiting Time Seen by Provider: 09/03/22 14:09 Source: patient, family Mode of arrival: wheelchair - History of Present Illness Initial comments: Dictation was produced using [employer] dictation software. please excuse any grammatical, word or spelling errors. Chief Complaint: 36-year-old male presents to the emergency room for hyperglycemia History of Present Illness: Patient 36-year-old male is insulin-dependent diabetic. He presents to the emergency department for hyperglycemia. His present illness obtained from mother father and patient. He has had nausea and vomiting and total body pain for approximately one day. He has been checking his blood sugar at home found to be high. Family was worried that patient was in DKA again. The ROS documented in this emergency department record has been reviewed and confirmed by me. Those systems with pertinent positive or negative responses have been documented in the HPI. All other systems are other negative and/or noncontributory. - Related Data Home Medications Medication Instructions Recorded Confirmed Metoprolol Tartrate [Lopressor] 150 mg PO BID 06/04/16 04/08/22 Atorvastatin [Lipitor] 10 mg PO DAILY 01/08/22 04/08/22 Atropine Sulfate [Atropine Sulfate 1 drop BOTH EYES DAILY 01/08/22 04/08/22 1%] Difluprednate [Difluprednate Ophth 1 drop BOTH EYES Q4H 01/08/22 04/08/22 Soln] Fluticasone/Umeclidin/Vilanter 1 puff INHALATION RT-DAILY 01/08/22 04/08/22 [[place] Ellipta 200-62.5-25] Insulin Aspart (Niacinamide) 0.01 unit SQ-PUMP CONTINUOUS 01/08/22 04/08/22 [Fiasp 100 Unit/ml Vial] Lurasidone HCl [Latuda] 120 mg PO W/SUPPER 01/08/22 04/08/22 Lurasidone [Latuda] 40 mg PO W/BRKFST 01/08/22 04/08/22 Montelukast [Singulair] 10 mg PO HS 01/08/22 04/08/22 QUEtiapine XR [SEROquel XR] 100 mg PO HS@199901/08/22 04/08/22 diazePAM [Valium] 2 mg PO DAILY 01/08/22 04/08/22 diazePAM [Valium] 4 mg PO HS 01/08/22 04/08/22 prednisoLONE ACETATE 1% OPHTH 1 drop LEFT EYE BID 01/08/22 04/08/22 [Pred Forte 1%] Esomeprazole Magnesium [NexIUM 20 mg PO HS 04/08/22 04/08/22 24Hr] Latanoprost Ophth [Xalatan 0.005%] 1 drop LEFT EYE HS 04/08/22 04/08/22 Ondansetron [Zofran] 4 mg PO Q6H PRN 04/08/22 04/08/22 Pantoprazole [Protonix] 40 mg PO DAILY 04/08/22 04/08/22 QUEtiapine FUMARATE [SEROquel] 25 mg PO HS@1900 04/08/22 04/08/22 Rizatriptan Odt [Maxalt QUILL MACHINE OPERATOR] 10 mg PO DAILY PRN 04/08/22 04/08/22 Trihexyphenidyl [Artane] 1 mg PO BID 04/08/22 04/08/22 Valproic Acid Oral Soln [Depakene 500 mg PO BID 04/08/22 04/08/22 Syrup] carBAMazepine CHEW [TEGretol Chew] 100 mg PO BID 04/08/22 04/08/22 cloNIDine HCL [Catapres] 0.1 mg PO BID 04/08/22 04/08/22 Previous Rx's Medication Instructions Recorded amLODIPine [Norvasc] 5 mg PO DAILY 90 Days #90 tab 04/13/22 Allergies Allergy/AdvReac Type Severity Reaction Status Date / Time adhesive tape Allergy Rash/Hives Verified 09/03/22 14:07 cefazolin Allergy Rash/Hives Verified 09/03/22 14:07 latex Allergy Rash/Hives Verified 09/03/22 14:07 metoclopramide [From Reglan] AdvReac Severe Tardive Verified 09/03/22 14:07 Dyskinesia amoxicillin [From Augmentin] AdvReac Nausea & Verified 09/03/22 14:07 Vomiting & Diarrhea clavulanic acid AdvReac Nausea & Verified 09/03/22 14:07 [From Augmentin] Vomiting & Diarrhea duloxetine [From Cymbalta] AdvReac Hallucinati Verified 09/03/22 14:07 ons pregabalin [From Lyrica] AdvReac Hallucinati Verified 09/03/22 14:07 ons Review of Systems ROS Statement: Those systems with pertinent positive or pertinent negative responses have been documented in the HPI. ROS Other: All systems not noted in ROS Statement are negative. Past Medical History Past Medical History: Diabetes Mellitus Additional Past Medical History / Comment(s): bilateral glaucoma, Tachycardia, diabetic gastropariesis, diabetic neuropathy, migraine headaches, peptic ulcer disease, retinal detachment status post multiple surgeries History of Any Multi-Drug Resistant Organisms: None Reported Past Surgical History: Pacemaker Additional Past Surgical History / Comment(s): eye surgery, EGDs Past Anesthesia/Blood Transfusion Reactions: No Reported Reaction Past Psychological History: Anxiety, Bipolar, Depression Smoking Status: Current every day smoker Past Alcohol Use History: None Reported Past Drug Use History: None Reported - Past Family History Father Additional Family Medical History / Comment(s): Patient does not know his father's age nor his health problems. Mother Additional Family Medical History / Comment(s): Patient does not know his mother's age but states she has fibromyalgia. Sister(s) Additional Family Medical History / Comment(s): Patient has 1 sister with no major medical problems. General Exam - General Exam Comments Initial Comments: PHYSICAL EXAM: General Impression: Alert and oriented x3, not in acute distress, smell of acetone HEENT: Normocephalic atraumatic, extra-ocular movements intact, pupils equal and reactive to light bilaterally, mucous membranes moist. Cardiovascular: Tachycardic Chest: Able to complete full sentences, no retractions, no tachypnea Abdomen: abdomen soft, non-tender, non-distended, no organomegaly Musculoskeletal: Pulses present and equal in all extremities, no peripheral edema Motor: no focal deficits noted Neurological: CN II-XII grossly intact, no focal motor or sensory deficits noted Skin: Intact with no visualized rashes Psych: Normal affect and mood Course Vital Signs 09/03/22 09/03/22 14:01 15:32 Temperature 99.0 F Pulse Rate 143 H 117 H Respiratory 19 18 Rate Blood Pressure 106/74 125/78 O2 Sat by Pulse 98 97 Oximetry EKG Findings - EKG Comments: EKG Findings:: My EKG interpretation: Ventricular rate 127,. 1366, QRS 86, QTC 403. Interpretation limited due to artifact patient has a gastric stimulator. Overall this EKG is nonspecific. Medical Decision Making - Medical Decision Making Was pt. sent in by a medical professional or institution (JONTAHAN Magana, CREW CHIEF, urgent ca re, hospital, or long term...) When possible be specific @ -No Did you speak to anyone other than the patient for history (EMS, parent, family, police, friend...)? What history was obtained from this source @ -No Did you review nursing and triage notes (agree or disagree)? Why? @ -I reviewed and agree with nursing and triage notes Were old charts reviewed (outside hosp., previous admission, EMS record, old EKG, old radiological studies, urgent care reports/EKG's, long term records)? Report findings @ -No old charts were reviewed Differential Diagnosis (chest pain, altered mental status, abdominal pain women, abdominal pain men, vaginal bleeding, musculoskeletal, weakness, fever, dyspnea, syncope, headache, dizziness, GI bleed, back pain, seizure, CVA, palpatations, mental health)? @ -Differential Weakness: Hypoglycemia, shock, sepsis, hyponatremia, anemia, infection, ND, ETOH, adverse medicine reaction, overdose, stroke, this is not meant to be an all-inclusive list. EKG interpreted by me (3pts min.). @ -See above X-rays interpreted by me (1pt min.). @ -None done CT interpreted by me (1pt min.). @ -None done U/S interpreted by me (1pt. min.). @ -None done What testing was considered but not performed or refused? (CT, X-rays, U/S, labs)? Why? @ -None What meds were considered but not given or refused? Why? @ -None Did you discuss the management of the patient with other professionals (professionals i.e. JONATHAN Magana, CREW CHIEF, lab, RT, psych nurse, older adult social work specialist, industrial plant custodian, teacher, geospatial program management officer, caser in)? Give summary @ -Discussed with station mechanic helper Dr. Frias who feels that patient can be admitted to [address] Vickers who is accepting patient care for admission. Was smoking cessation discussed for >3mins.? @ -No Was critical care preformed (if so, how long)? @ -yes, 73 minutes Were there social determinants of health that impacted care today? How? (Homelessness, low income, unemployed, alcoholism, drug addiction, tr ansportation, low edu. Level, literacy, decrease access to med. care, half-way, rehab)? @ -No Was there de-escalation of care discussed even if they declined (Discuss DNR or withdrawal of care, Hospice)? DNR status @ -No What co-morbidities impacted this encounter? (DM, HTN, Smoking, COPD, CAD, Cancer, CVA, ARF, Chemo, Hep., AIDS, mental health diagnosis, sleep apnea, morbid obesity)? @ -None Was patient admitted / discharged? Hospital course, mention meds given and route, prescriptions, significant lab abnormalities, going to OR and other pertinent info. @ -36-year-old male presents emergency 5 for hyperglycemia and concerns of DKA. Vital signs upon arrival shows heart rate of 143, rest of vital signs within acceptable limits. Laboratory evaluation shows normal CBC. Venous blood gas with pH is 7.25 CO2 23 and bicarb of 10 suggesting metabolic acidosis. Initial bicarb of 7. Glucose of 539. Patient acetone positive. Patient started on DKA protocol will be admitted to 3 S. Undiagnosed new problem with uncertain prognosis? @ -No Drug Therapy requiring intensive monitoring for toxicity (Heparin, Nitro, Insulin, Cardizem)? @ -No Were any procedures done? @ -No Diagnosis/symptom? Acute, or Chronic, or Acute on Chronic? Uncomplicated (without systemic symptoms) or Complicated (systemic symptoms)? @ -DKA Side effects of treatment? @ -No Exacerbation, Progression, or Severe Exacerbation? @ -No Poses a threat to life or bodily function? How? (Chest pain, USA, ND, pneumonia, PE, COPD, DKA, ARF, appy, cholecystitis, CVA, Diverticulitis, Homicidal, Suicidal, threat to staff... and all critical care pts) @ -yes - Lab Data Result diagrams: 09/03/22 14:25 09/03/22 17:12 Lab Results 09/03/22 09/03/22 09/03/22 Range/Units 14:05 14:25 14:25 WBC 12.4 H (3.8-10.6) k/uL RBC 4.52 (4.30-5.90) m/uL Hgb 14.1 (13.0-17.5) gm/dL Hct 40.2 (39.0-53.0) % MCV 88.9 (80.0-100.0) fL MCH 31.2 (25.0-35.0) pg MCHC 35.0 (31.0-37.0) g/dL RDW 12.7 (11.5-15.5) % Plt Count 306 (150-450) k/uL MPV 7.8 Neutrophils % 82 % Lymphocytes % 13 % Monocytes % 4 % Eosinophils % 0 % Basophils % 0 % Neutrophils # 10.1 H (1.3-7.7) k/uL Lymphocytes # 1.6 (1.0-4.8) k/uL Monocytes # 0.5 (0-1.0) k/uL Eosinophils # 0.0 (0-0.7) k/uL Basophils # 0.0 (0-0.2) k/uL VBG pH (7.31-7.41) VBG pCO2 (37-51) mmHg VBG HCO3 (24-28) mmol/L Sodium 132 L (137-145) mmol/L Potassium 5.1 (3.5-5.1) mmol/L Chloride 96 L (98-107) mmol/L Carbon Dioxide 7 L* (22-30) mmol/L Anion Gap 29 mmol/L BUN 24 H (9-20) mg/dL Creatinine 1.84 H (0.66-1.25) mg/dL Est GFR (CKD-EPI)AfAm 53 (>60 ml/min/1.73 sqM) Est GFR (CKD-EPI)NonAf 46 (>60 ml/min/1.73 sqM) Glucose 539 H* (74-99) mg/dL POC Glucose (mg/dL) 509 H (70-110) mg/dL POC Glu Green Coffee Blender ID Beard, Deonna Calcium 9.2 (8.4-10.2) mg/dL Magnesium 2.5 H (1.6-2.3) mg/dL Urine Color Urine Appearance (Clear) Urine pH (5.0-8.0) Ur Specific [place] (1.001-1.035) Urine Protein (Negative) Urine Glucose (UA) (Negative) Urine Ketones (Negative) Urine Blood (Negative) Urine Nitrite (Negative) Urine Bilirubin (Negative) Urine Urobilinogen (<2.0) mg/dL Ur Leukocyte Esterase (Negative) Urine RBC (0-5) /hpf Acetone, Qual Positive (Negative) 09/03/22 09/03/22 09/03/22 Range/Units 14:25 14:25 16:22 WBC (3.8-10.6) k/uL RBC (4.30-5.90) m/uL Hgb (13.0-17.5) gm/dL Hct (39.0-53.0) % MCV (80.0-100.0) fL MCH (25.0-35.0) pg MCHC (31.0-37.0) g/dL RDW (11.5-15.5) % Plt Count (150-450) k/uL MPV Neutrophils % % Lymphocytes % % Monocytes % % Eosinophils % % Basophils % % Neutrophils # (1.3-7.7) k/uL Lymphocytes # (1.0-4.8) k/uL Monocytes # (0-1.0) k/uL Eosinophils # (0-0.7) k/uL Basophils # (0-0.2) k/uL VBG pH 7.25 L (7.31-7.41) VBG pCO2 23 L (37-51) mmHg VBG HCO3 10 L (24-28) mmol/L Sodium (137-145) mmol/L Potassium (3.5-5.1) mmol/L Chloride (98-107) mmol/L Carbon Dioxide (22-30) mmol/L Anion Gap mmol/L BUN (9-20) mg/dL Creatinine (0.66-1.25) mg/dL Est GFR (CKD-EPI)AfAm (>60 ml/min/1.73 sqM) Est GFR (CKD-EPI)NonAf (>60 ml/min/1.73 sqM) Glucose (74-99) mg/dL POC Glucose (mg/dL) 344 H (70-110) mg/dL POC Glu Green Coffee Blender ID Estelita Pope Calcium (8.4-10.2) mg/dL Magnesium (1.6-2.3) mg/dL Urine Color Light Yellow Urine Appearance Clear (Clear) Urine pH 5.0 (5.0-8.0) Ur Specific [place] 1.020 (1.001-1.035) Urine Protein Trace (Negative) Urine Glucose (UA) 4+ (Negative) Urine Ketones 4+ (Negative) Urine Blood Small (Negative) Urine Nitrite Negative (Negative) Urine Bilirubin Negative (Negative) Urine Urobilinogen <2.0 (<2.0) mg/dL Ur Leukocyte Esterase Negative (Negative) Urine RBC 1 (0-5) /hpf Acetone, Qual (Negative) 09/03/22 09/03/22 Range/Units 17:12 17:17 WBC (3.8-10.6) k/uL RBC (4.30-5.90) m/uL Hgb (13.0-17.5) gm/dL Hct (39.0-53.0) % MCV (80.0-100.0) fL MCH (25.0-35.0) pg MCHC (31.0-37.0) g/dL RDW (11.5-15.5) % Plt Count (150-450) k/uL MPV Neutrophils % % Lymphocytes % % Monocytes % % Eosinophils % % Basophils % % Neutrophils # (1.3-7.7) k/uL Lymphocytes # (1.0-4.8) k/uL Monocytes # (0-1.0) k/uL Eosinophils # (0-0.7) k/uL Basophils # (0-0.2) k/uL VBG pH (7.31-7.41) VBG pCO2 (37-51) mmHg VBG HCO3 (24-28) mmol/L Sodium 134 L (137-145) mmol/L Potassium 4.0 (3.5-5.1) mmol/L Chloride 105 (98-107) mmol/L Carbon Dioxide 14 L (22-30) mmol/L Anion Gap 15 mmol/L BUN (9-20) mg/dL Creatinine (0.66-1.25) mg/dL Est GFR (CKD-EPI)AfAm (>60 ml/min/1.73 sqM) Est GFR (CKD-EPI)NonAf (>60 ml/min/1.73 sqM) Glucose (74-99) mg/dL POC Glucose (mg/dL) 318 H (70-110) mg/dL POC Glu Green Coffee Blender ID Estelita Pope Calcium (8.4-10.2) mg/dL Magnesium (1.6-2.3) mg/dL Urine Color Urine Appearance (Clear) Urine pH (5.0-8.0) Ur Specific [place] (1.001-1.035) Urine Protein (Negative) Urine Glucose (UA) (Negative) Urine Ketones (Negative) Urine Blood (Negative) Urine Nitrite (Negative) Urine Bilirubin (Negative) Urine Urobilinogen (<2.0) mg/dL Ur Leukocyte Esterase (Negative) Urine RBC (0-5) /hpf Acetone, Qual (Negative) Disposition Clinical Impression: DKA (diabetic ketoacidosis) Disposition: ADMITTED IP TO THIS [facility] Condition: Critical Referrals: Wisam Vickers MD [Primary Care Provider] - 1-2 days Decision Time: 17:17
[2022-09-03] MEDS: INSULIN REGULAR 100 UNIT in SODIUM CHLORIDE 0.9% 100 ML IV SCH (15:31)
[2022-09-03] MEDS: SODIUM CHLORIDE 0.9% 1,000 ML IV SCH ×2 (15:32→19:56)
[2022-09-03] MEDS ORDERED: ONDANSETRON 4 MG/2 ML VIAL IVP STA (16:09)
[2022-09-03 16:27] LABS: Glucose,Whole Blood 344 mg/dL (70-110)
[2022-09-03 16:37] LABS: Appearance,Urine Clear (Clear); Color,Urine Light Yellow; Glucose,Urine (UA) 4+ (Negative); Protein,Urine Trace (Negative)
[2022-09-03 16:39] LABS: Bilirubin,Urine Negative (Negative); Blood,Urine Small (Negative); Ketones,Urine 4+ (Negative); Urobilinogen,Urine <2.0 mg/dL (<2.0)
[2022-09-03 16:40] LABS: Leukocyte Esterase,Urine Negative (Negative); Nitrite,Urine Negative (Negative)
[2022-09-03 16:56] LABS: RBC,Urine 1 /hpf (0-5)
[2022-09-03 17:18] LABS: Glucose,Whole Blood 318 mg/dL (70-110)
[2022-09-03] MEDS ORDERED: NALOXONE 0.4 MG/ML 1 ML VIAL IV PRN (18:13)
[2022-09-03 18:17] LABS: Glucose,Whole Blood 258 mg/dL (70-110)
[2022-09-03 18:50] LABS: African American GFR (CKD) 71 (>60 ml/min/1.73 sqM); Blood Urea Nitrogen 21 mg/dL (9-20); Glucose 302 mg/dL (74-99); Non-African American GFR(CKD) 61 (>60 ml/min/1.73 sqM); Phosphorus 1.7 mg/dL (2.5-4.5)
[2022-09-03] MEDS: D5-0.45% NACL WITH KCL 20MEQ/L 1,000 ML IV SCH (18:52)
[2022-09-03 20:55] LABS: African American GFR (CKD) 90 (>60 ml/min/1.73 sqM); Blood Urea Nitrogen 18 mg/dL (9-20); Glucose 160 mg/dL (74-99); Non-African American GFR(CKD) 78 (>60 ml/min/1.73 sqM)
[2022-09-03 20:56] LABS: Glucose,Whole Blood 164 mg/dL (70-110)
[2022-09-03] MEDS ORDERED: SUMAtriptan succinate 50 MG TAB PO PRN ×2 (22:04→22:46)
[2022-09-03 22:13] LABS: Glucose,Whole Blood 134 mg/dL (70-110)
[2022-09-03] MEDS ORDERED: GLUCAGON 1 MG/ML VIAL IM PRN (22:46)
[2022-09-03 23:21] LABS: Glucose,Whole Blood 118 mg/dL (70-110)
[2022-09-03 23:47] LABS: Potassium 3.6 mmol/L (3.5-5.1)
[2022-09-04 00:28] LABS: Glucose,Whole Blood 133 mg/dL (70-110)
[2022-09-04] MEDS: HYDROmorphone 0.5 MG/0.5 ML SYRINGE IVP PRN ×5 (00:28→21:46)
[2022-09-04 01:21] LABS: Glucose,Whole Blood 155 mg/dL (70-110)
[2022-09-04 02:08] LABS: Glucose,Whole Blood 140 mg/dL (70-110)
[2022-09-04] MEDS: SODIUM CHLORIDE 0.9% 1,000 ML IV SCH ×4 (04:08→22:09)
[2022-09-04] MEDS ORDERED: ONDANSETRON 4 MG/2 ML VIAL IVP PRN (05:03)
[2022-09-04] MEDS ORDERED: ONDANSETRON 4 MG/2 ML VIAL IVP STA (05:03)
[2022-09-04 06:30] LABS: Glucose,Whole Blood 452 mg/dL (70-110)
[2022-09-04] MEDS: INSULIN ASPART (NovoLOG) 100 UNIT/ML VIAL SQ SCH ×2 (06:36→13:21)
[2022-09-04 08:00] LABS: Glucose,Whole Blood 480 mg/dL (70-110)
[2022-09-04 08:12] LABS: Basophils # (A) 0.1 k/uL (0-0.2); Basophils % (A) 0 %; Eosinophils % (A) 0 %; HCT 38.4 % (39.0-53.0); HGB 12.9 gm/dL (13.0-17.5); Lymphocytes # (A) 1.1 k/uL (1.0-4.8); Lymphocytes % (A) 4 %; MCH 31.1 pg (25.0-35.0); MCHC 33.6 g/dL (31.0-37.0); MCV 92.4 fL (80.0-100.0); Monocytes % (A) 4 %; Neutrophils # (A) 24.5 k/uL (1.3-7.7); Neutrophils % (A) 91 %; Platelet Count 308 k/uL (150-450); RBC 4.16 m/uL (4.30-5.90); RDW 12.9 % (11.5-15.5); WBC 26.8 k/uL (3.8-10.6)
[2022-09-04] MEDS: PANTOPRAZOLE 40 MG TABLET PO SCH (08:23)
[2022-09-04 08:32] LABS: ALT 13 U/L (4-49); AST 14 U/L (17-59); African American GFR (CKD) >90 (>60 ml/min/1.73 sqM); Albumin 3.8 g/dL (3.5-5.0); Alkaline Phosphatase 137 U/L (38-126); Anion Gap 27 mmol/L; Blood Urea Nitrogen 14 mg/dL (9-20); Chloride 103 mmol/L (98-107); Non-African American GFR(CKD) 86 (>60 ml/min/1.73 sqM); Potassium 5.2 mmol/L (3.5-5.1); Sodium 136 mmol/L (137-145); Total Bilirubin 0.5 mg/dL (0.2-1.3)
[2022-09-04] MEDS: cloNIDine HCL 0.2 MG TAB PO SCH ×2 (08:33→21:44)
[2022-09-04] MEDS: METOPROLOL TARTRATE 5 MG/5 ML VIAL IVP SCH ×2 (08:38→17:24)
[2022-09-04 08:55] LABS: Carbon Dioxide 6 mmol/L (22-30); Glucose 504 mg/dL (74-99)
[2022-09-04] MEDS: D5-0.45% NACL WITH KCL 20MEQ/L 1,000 ML IV SCH ×4 (09:16→23:01)
[2022-09-04 09:35] LABS: Glucose,Whole Blood 457 mg/dL (70-110)
--- NOTE | 2022-09-04 09:43 | CONS ---
CONSULTATION CHIEF COMPLAINT: Tachycardia. HISTORY OF PRESENT ILLNESS: This is a 36-year-old gentleman with history of severe insulin-dependent diabetes who presented to hospital primarily with hyperglycemia. The patient has had nausea, vomiting, abdominal pain and generalized body aches. I am consulted because of tachycardia. I am not able to obtain any meaningful information from the patient who is sleeping and when woken up, he says discomfort all over my body. EKG shows sinus tachycardia with a heart rate of 127 beats per minute. Labs show that his white cell count is elevated at 26, platelet count is 308, hemoglobin is 12. Potassium is 3.6 creatinine is 1.2. The patient had sinus tachycardia on EKG in the past. He is on metoprolol, but he is not able to take any oral medications. Normally, he takes 150 mg p.o. b.i.d. I am going to give him Lopressor 5 q.8 until he is able to take the medication, so we will obtain a 2D echo to evaluate his LV function. PAST MEDICAL HISTORY: Significant for diabetes, hypertension, tachycardia. MEDICATIONS: As charted. ALLERGIES: Keflex, metoclopramide, and amoxicillin. He has several other allergies as charted. FAMILY HISTORY: I am unable to obtain from the patient who seems somewhat reluctant to give any history. REVIEW OF SYSTEMS: I am unable to obtain from the patient who seems somewhat reluctant to give any history. PHYSICAL EXAMINATION: VITAL SIGNS: On exam, heart rate is 140 beats per minute, blood pressure is 158/86, respiratory rate is 18, O2 saturation is 98% on room air. NECK: There is no jugular venous distention. Carotid upstroke is normal. There is no bruit. CHEST: Reveals good air entry bilaterally. HEART: Reveals first and second heart sounds. No gallop. No murmur. No rub. ABDOMEN: Soft, nontender. EXTREMITIES: Exam of extremities did not reveal any edema. Peripheral pulses are felt. LABORATORY DATA: As described above. ASSESSMENT AND PLAN: 1. Diabetic ketoacidosis. 2. Sinus tachycardia. PLAN: Please hydrate the patient. Manage the DKA. We will give him IV Lopressor. I will obtain a 2D echo to assess his LV function. MMODL / IJN: [id number] /
[2022-09-04] MEDS: BUDESONIDE 0.5 MG/2 ML NEBU INHALATION SCH ×2 (09:46→20:07)
[2022-09-04] MEDS: IPRATROPIUM-ALBUTEROL 3 ML NEB INHALATION SCH ×4 (09:46→20:07)
[2022-09-04 11:43] LABS: Glucose,Whole Blood 375 mg/dL (70-110)
[2022-09-04] MEDS: INSULIN REGULAR 100 UNIT in SODIUM CHLORIDE 0.9% 100 ML IV SCH ×2 (12:32→22:08)
[2022-09-04 12:50] LABS: Glucose,Whole Blood 287 mg/dL (70-110)
[2022-09-04] MEDS: ATORVASTATIN 10 MG TAB PO SCH (12:52)
[2022-09-04] MEDS: lisinopriL 20 MG TAB PO SCH (12:52)
[2022-09-04] MEDS: amLODIPine 5 MG TAB PO SCH (12:52)
[2022-09-04] MEDS: LURASIDONE 40 MG TAB PO SCH (12:52)
[2022-09-04] MEDS: METOPROLOL TARTRATE 50 MG TAB PO SCH ×2 (12:53→21:43)
[2022-09-04] MEDS: TRIHEXYPHENIDYL 2 MG TAB PO SCH ×2 (12:53→21:45)
[2022-09-04] MEDS: prednisoLONE ACETATE 1% OPHTH DROPS 5 ML BTL LEFT EYE SCH ×2 (13:19→21:44)
[2022-09-04] MEDS: PANTOPRAZOLE 40 MG/10 ML VIAL IVP SCH ×2 (13:22→21:43)
[2022-09-04 13:28] LABS: Glucose,Whole Blood 225 mg/dL (70-110)
[2022-09-04] MEDS: ATROPINE OPHTH SOLN 1% 5ML BTL BOTH EYES SCH (13:31)
[2022-09-04 13:40] LABS: African American GFR (CKD) 90 (>60 ml/min/1.73 sqM); Anion Gap 23 mmol/L; Blood Urea Nitrogen 13 mg/dL (9-20); Calcium 8.9 mg/dL (8.4-10.2); Chloride 109 mmol/L (98-107); Glucose 268 mg/dL (74-99); Non-African American GFR(CKD) 78 (>60 ml/min/1.73 sqM); Phosphorus 2.1 mg/dL (2.5-4.5); Potassium 4.7 mmol/L (3.5-5.1); Sodium 140 mmol/L (137-145)
[2022-09-04 13:42] LABS: Carbon Dioxide 8 mmol/L (22-30)
[2022-09-04 14:30] LABS: Glucose,Whole Blood 206 mg/dL (70-110)
[2022-09-04 15:44] LABS: Glucose,Whole Blood 151 mg/dL (70-110)
[2022-09-04 16:31] LABS: Glucose,Whole Blood 133 mg/dL (70-110)
[2022-09-04] MEDS: LURASIDONE 60 MG TAB PO SCH (17:11)
[2022-09-04] MEDS: ONDANSETRON 4 MG/2 ML VIAL IVP PRN ×2 (17:21→23:02)
[2022-09-04 17:24] LABS: Glucose,Whole Blood 114 mg/dL (70-110)
--- NOTE | 2022-09-04 17:48 | CA ---
Transthoracic Echo Report Name: Tani Slater Age: 36 Gender: M : 1985 Exam Date: 09/04/2022 08:49 Exam Location: [facility] Ht (in): 72 Wt (lb): 148 Ordering Physician: Memo Odom MD ([id number]) Attending/Referring Phys: Ilene IQBAL [employer] Detective Juan Negron Procedure CPT: Indications: Assess left ventricular function Cardiac Hx: Technical Quality: Technically difficult study Contrast 1: Total Dose (mL): Contrast 2: Total Dose (mL): MEASUREMENTS (Male / Female) Normal Values 2D ECHO LV Diastolic Diameter PLAX 4.2 cm 4.2 - 5.9 / 3.9 - 5.3 cm LV Systolic Diameter PLAX 2.6 cm IVS Diastolic Thickness 1.0 cm 0.6 - 1.0 / 0.6 - 0.9 cm LVPW Diastolic Thickness 0.9 cm 0.6 - 1.0 / 0.6 - 0.9 cm LV Relative Wall Thickness 0.4 RV Internal Dim ED PLAX 2.1 cm LVOT Diameter 2.2 cm Aortic Root Diameter 2.8 cm LA Systolic Diameter LX 1.9 cm 3.0 - 4.0 / 2.7 - 3.8 cm LV Diastolic Volume MOD BP 36.8 cm??? 67 - 155 / 56 - 104 cm??? LV Systolic Volume MOD BP 12.8 cm??? 22 - 58 / 19 - 49 cm??? LV Ejection Fraction MOD BP 65.3 % >= 55 % LV Cardiac Index MOD BP 1699.6 cm???/min???m??? LV Diastolic Volume MOD 4C 42.9 cm??? LV Systolic Volume MOD 4C 12.5 cm??? LV Ejection Fraction MOD 4C 70.9 % LV Cardiac Index MOD 4C 2151.3 cm???/min???m??? LV Diastolic Length 4C 7.2 cm LV Systolic Length 4C 6.3 cm LV Diastolic Volume MOD 2C 31.4 cm??? LV Systolic Volume MOD 2C 10.7 cm??? LV Ejection Fraction MOD 2C 65.9 % LV Cardiac Index MOD 2C 1464.2 cm???/min???m??? LV Diastolic Length 2C 7.1 cm LV Systolic Length 2C 5.2 cm LA Volume 35.1 cm??? 18 - 58 / 22 - 52 cm??? DOPPLER AV Peak Velocity 184.0 cm/s AV Peak Gradient 13.5 mmHg LVOT Peak Velocity 125.1 cm/s LVOT Peak Gradient 6.3 mmHg AV Area Cont Eq pk 2.5 cm??? MV Peak Velocity 196.0 cm/s MV Peak Gradient 15.4 mmHg MV Mean Velocity 82.7 cm/s MV Mean Gradient 3.5 mmHg MV Velocity Time Integral 32.1 cm MR Peak Velocity 384.5 cm/s MR Peak Gradient 59.1 mmHg Mitral E Point Velocity 74.9 cm/s Mitral A Point Velocity 133.8 cm/s Mitral E to A Ratio 0.6 MV Deceleration Time 97.7 ms PV Peak Velocity 144.0 cm/s PV Peak Gradient 8.3 mmHg FINDINGS Left Ventricle Normal LV size . Mild concentric LVH. Left ventricular ejection fraction is estimated at _55-60 %. Right Ventricle Normal right ventricular size. Right Atrium Normal right atrial size. Left Atrium Normal left atrial size. Mitral Valve Structurally normal mitral valve. No mitral stenosis. No mitral regurgitation. Aortic Valve Aortic valve not well visualized. No aortic valve stenosis or regurgitation. Tricuspid Valve Grossly normal. Trace TR. Pulmonic Valve Pulmonic valve not well visualized. No pulmonic regurgitation. Pericardium Normal pericardium. Aorta Normal size aortic root and proximal ascending aorta. CONCLUSIONS Mild left ventricular hypertrophy Left ventricular ejection fraction 55-60% Tachycardia noted No mitral regurgitation No pericardial effusion Previewed by: Dr. Magdi Chase DO (Electronically Signed) Final Date: 04 September 2022 17:46
[2022-09-04 18:25] LABS: African American GFR (CKD) >90 (>60 ml/min/1.73 sqM); Anion Gap 16 mmol/L; Blood Urea Nitrogen 12 mg/dL (9-20); Calcium 9.1 mg/dL (8.4-10.2); Carbon Dioxide 17 mmol/L (22-30); Chloride 110 mmol/L (98-107); Glucose 124 mg/dL (74-99); Non-African American GFR(CKD) 84 (>60 ml/min/1.73 sqM); Phosphorus 2.4 mg/dL (2.5-4.5); Potassium 4.2 mmol/L (3.5-5.1); Sodium 143 mmol/L (137-145)
[2022-09-04 18:28] LABS: Glucose,Whole Blood 126 mg/dL (70-110)
[2022-09-04 19:16] LABS: Glucose,Whole Blood 135 mg/dL (70-110)
[2022-09-04 20:35] LABS: Glucose,Whole Blood 209 mg/dL (70-110)
[2022-09-04] MEDS ORDERED: PANTOPRAZOLE 40 MG TABLET PO SCH (21:00)
[2022-09-04 21:31] LABS: Glucose,Whole Blood 292 mg/dL (70-110)
[2022-09-04] MEDS: QUEtiapine 50 MG TAB PO SCH (21:43)
[2022-09-04] MEDS: QUEtiapine 25 MG TAB PO SCH (21:44)
[2022-09-04] MEDS: MONTELUKAST 10 MG TAB PO SCH (21:44)
[2022-09-04 22:31] LABS: Glucose,Whole Blood 325 mg/dL (70-110)
[2022-09-04 23:48] LABS: Glucose,Whole Blood 352 mg/dL (70-110)
[2022-09-05] MEDS: PANTOPRAZOLE 40 MG TABLET PO SCH (00:07)
[2022-09-05 00:33] LABS: Glucose,Whole Blood 375 mg/dL (70-110)
[2022-09-05] MEDS: METOPROLOL TARTRATE 5 MG/5 ML VIAL IVP SCH ×3 (00:48→16:54)
[2022-09-05 01:31] LABS: Glucose,Whole Blood 321 mg/dL (70-110)
[2022-09-05] MEDS: HYDROmorphone 0.5 MG/0.5 ML SYRINGE IVP PRN ×6 (01:53→23:18)
[2022-09-05] MEDS: cloNIDine 0.2 MG/24HR PATCH TRANSDERM SCH (01:54)
[2022-09-05 02:34] LABS: Glucose,Whole Blood 376 mg/dL (70-110)
--- NOTE | 2022-09-05 02:39 | CT ---
EXAM: CT Chest Without Intravenous Contrast CLINICAL HISTORY: ITS.REASON CT Reason: abscess TECHNIQUE: Axial computed tomography images of the chest without intravenous contrast. CTDI is 3.2 mGy and DLP is 258 mGy-cm. This CT exam was performed using one or more of the following dose reduction techniques: automated exposure control, adjustment of the mA and/or kV according to patient size, and/or use of iterative reconstruction technique. COMPARISON: No relevant prior studies available. FINDINGS: Lungs: No mass. No consolidation. Pleural space: No pneumothorax. No effusion. Heart: Normal heart size. No pericardial effusion. Bones/joints: No acute fracture. Soft tissues: Thickened esophageal wall throughout, correlate with esophagitis. Vasculature: Unremarkable. No thoracic aortic aneurysm. Lymph nodes: No enlarged lymph nodes. IMPRESSION: Thickened esophageal wall throughout, correlate with esophagitis. EXAM: CT Abdomen and Pelvis Without Intravenous Contrast CLINICAL HISTORY: ITS.REASON CT Reason: abscess TECHNIQUE: Axial computed tomography images of the abdomen and pelvis without intravenous contrast. CTDI is 3.2 mGy and DLP is 258 mGy-cm. This CT exam was performed using one or more of the following dose reduction techniques: automated exposure control, adjustment of the mA and/or kV according to patient size, and/or use of iterative reconstruction technique. COMPARISON: No relevant prior studies available. FINDINGS: ABDOMEN: Liver: Unremarkable. Gallbladder and bile ducts: Unremarkable. Pancreas: No ductal dilation. Spleen: Unremarkable. Adrenals: Unremarkable. Kidneys and ureters: No obstructing stones. No hydronephrosis. Stomach and bowel: No bowel obstruction. No bowel wall thickening. PELVIS: Appendix: No evidence of appendicitis. Bladder: No stones. Reproductive: Unremarkable. ABDOMEN and PELVIS: Intraperitoneal space: Unremarkable. Bones/joints: No acute fractures. Soft tissues: Unremarkable. Vasculature: No abdominal aortic aneurysm. Lymph nodes: No enlarged lymph nodes. IMPRESSION: No acute findings.
[2022-09-05] MEDS: SODIUM CHLORIDE 0.9% 1,000 ML IV SCH ×3 (03:06→13:00)
--- NOTE | 2022-09-05 03:19 | HP ---
HISTORY AND PHYSICAL HISTORY OF PRESENT ILLNESS: A white male came to the hospital with possible DKA. He is type 1 diabetic. He had nausea, vomiting, total body pain possibly 1 day, has been checking his sugar at home. He has progressive vomiting. He was in DKA. His sugar was in the high 300s to 400s with positive questionable acetone. HOME MEDICINES: 1. Lopressor 150 b.i.d. 2. Lipitor 10 daily. 3. Trelegy inhaler daily. 4. CS insulin pump. 5. Senna 10 daily. 6. Seroquel XR 100 daily. 7. Valium. 8. Nexium 20 daily. 9. Protonix 40 daily. 10.Seroquel 25 at night. 11.Artane 1 mg b.i.d. 12.Valproic acid 500 b.i.d. 13.Catapres 0.1 b.i.d. 14.Tegretol 100 b.i.d. ALLERGIES: Adhesive tape, cefazolin, lytes, latex, amoxicillin, Augmentin, Cymbalta, Lyrica. REVIEW OF SYSTEMS: A 14-point review of systems, please see further orders. Otherwise, negative. PAST MEDICAL HISTORY: Diabetes mellitus, glaucoma, tachycardia, gastroparesis, diabetic neuropathy, migraine symptoms, serous retinal detachment. PHYSICAL EXAMINATION: GENERAL: Thin, cachectic. He has a history of bipolar schizophrenia. He is alert and oriented x3. HEENT: Normocephalic, atraumatic. CARDIOVASCULAR: S1, S2. Tachycardia. LUNGS: Scattered rhonchi and wheeze. HEMATOLOGY: Negative Homans. PSYCH: Fair mood and affect. NEUROLOGIC: Cranial nerves intact. Alert and oriented x3. giving appropriate answers. VITAL SIGNS: Heart rates in the 130s. Cardiology have been consulted. Blood pressure 106 to 125/74 to 78, O2 of 97% to 98%, pulse 143 to 117, respiratory rate 18 to 20, temperature 99. SKIN: Dry turgor. Dry mucous membranes. ASSESSMENT: Gastroparesis, hyperglycemia, on diabetic ketoacidosis, tachycardia secondary to diabetic ketoacidosis, metabolic acidosis, initial bicarb was 7 and now is up to 17, glucose 539 on admission. Acetone positive. DKA protocol. Replace electrolytes. White count jumped up to 27,000. Wait for Infectious Disease consult. Please see further orders. Continue fluid rehydration, nausea and vomiting, medications. Infectious Disease consult. Surgical consult. No GI consults available. Please see further orders. MMODL / IJN: [id number] /
[2022-09-05 03:33] LABS: Glucose,Whole Blood 335 mg/dL (70-110)
[2022-09-05] MEDS: D5-0.45% NACL WITH KCL 20MEQ/L 1,000 ML IV SCH ×3 (03:57→18:25)
[2022-09-05 04:36] LABS: Glucose,Whole Blood 279 mg/dL (70-110)
[2022-09-05 05:42] LABS: Glucose,Whole Blood 253 mg/dL (70-110)
[2022-09-05] MEDS: ONDANSETRON 4 MG/2 ML VIAL IVP PRN ×2 (05:50→20:46)
[2022-09-05 06:45] LABS: Glucose,Whole Blood 206 mg/dL (70-110)
[2022-09-05] MEDS: LURASIDONE 40 MG TAB PO SCH (06:49)
[2022-09-05 07:51] LABS: Glucose,Whole Blood 213 mg/dL (70-110)
[2022-09-05] MEDS: IPRATROPIUM-ALBUTEROL 3 ML NEB INHALATION SCH ×4 (08:01→19:59)
[2022-09-05] MEDS: BUDESONIDE 0.5 MG/2 ML NEBU INHALATION SCH ×2 (08:01→19:59)
[2022-09-05 08:08] LABS: African American GFR (CKD) >90 (>60 ml/min/1.73 sqM); Anion Gap 9 mmol/L; Blood Urea Nitrogen 11 mg/dL (9-20); Calcium 9.1 mg/dL (8.4-10.2); Carbon Dioxide 20 mmol/L (22-30); Chloride 108 mmol/L (98-107); Glucose 223 mg/dL (74-99); Non-African American GFR(CKD) >90 (>60 ml/min/1.73 sqM); Sodium 137 mmol/L (137-145)
[2022-09-05] MEDS: PANTOPRAZOLE 40 MG/10 ML VIAL IVP SCH ×2 (08:21→20:45)
[2022-09-05 08:30] LABS: Glucose,Whole Blood 200 mg/dL (70-110)
[2022-09-05] MEDS ORDERED: METOCLOPRAMIDE 5 MG/ML 2 ML VIAL IVP SCH (09:00)
[2022-09-05] MEDS ORDERED: SCOPOLAMINE 1 MG/72 HR PATCH TRANSDERM ONE (09:30)
[2022-09-05] MEDS ORDERED: NICOTINE 21MG/24HR PATCH TRANSDERM SCH (09:30)
[2022-09-05 09:51] LABS: Glucose,Whole Blood 165 mg/dL (70-110)
[2022-09-05] MEDS ORDERED: PROCHLORPERAZINE INJ 10 MG/2 ML VIAL IVP PRN (10:14)
--- NOTE | 2022-09-05 10:23 | P.PN ---
Subjective Progress Note Date: 09/05/22 History of present illness: This is a 36 year old male with history of DM type I presented with DKA and we have been asked to evaluate for tachycardia. Patient has been in sinus tachycardia up to 127 bpm. He continues to have significant vomiting despite use of Zofran and has been unable to maintain any oral medications. Yesterday, he was started on Lopressor 5 mg every 8 hours. Blood pressure is 166/87, heart rate 125 to 1:30 range. Blood sugar 200 Echocardiogram reveals EF of 55-60% with mild left ventricular hypertrophy, no mitral regurgitation, no pericardial effusion. Physical examination: Gen: This is a 36-year-old ill-appearing male. Resting in bed with active vomiting VS: reviewed HEENT: Head is atraumatic, normocephalic. Pupils equal, round. Sclerae is anicteric. NECK: Supple. No JVD. . LUNGS: Clear to auscultation. No wheezes or rhonchi. No intercostal retractions . HEART: Regular rate and rhythm. No murmur. ABDOMEN: Soft EXTREMITIES: No pedal edema. No calf tenderness. NEUROLOGICAL: Patient is awake, alert and oriented x3. Assessment: Diabetic ketoacidosis Sinus tachycardia Plan: Medicine to continue management of DKA Continue IV Lopressor until patient is able to take oral medications Further recommendations to follow based upon clinical course Nurse practitioner note has been reviewed, I agree with documented findings and plan of care. Patient was seen and examined. Objective - Vital Signs Vital signs: Vital Signs Temp 98.1 F 09/05/22 04:00 Pulse 124 H 09/05/22 04:00 Resp 16 09/05/22 04:00 BP 166/87 09/05/22 04:00 Pulse Ox 98 09/05/22 04:00 FiO2 100 09/03/22 22:54 Intake & Output 09/04/22 09/05/22 09/05/22 18:59 06:59 18:59 Intake Total 4784.551 9215.394 Output Total 1450 Balance 041.947 8245.394 Intake: IV 1800 Sodium Chloride 0.9% 1, 1800 000 ml @ 200 mls/hr IV . Q5H FELIX Rx#:[id number] Intake, IV Titration 44.942 1525.394 Amount D5-0.45% NaCl with KCl 1507 20Meq/l 1,000 ml @ 150 mls/hr IV .[id number] FELIX Rx# :[id number] Insulin Regular 100 unit 44.942 18.394 In Sodium Chloride 0.9% 100 ml @ 0.1 UNITS/KG/HR 6.78 mls/hr IV .[id number] FELIX Rx#:[id number] Oral 1620 Output: Urine 650 Emesis 800 Other: # Voids 3 2 # Bowel Movements 3 - Labs CBC & Chem 7: 09/04/22 07:37 09/05/22 07:26 Labs: Abnormal Lab Results - Last 24 Hours (Table) 09/04/22 09/04/22 09/04/22 Range/Units 07:37 09:27 11:32 Sodium 136 L (137-145) mmol/L Chloride (98-107) mmol/L Carbon Dioxide 6 L* (22-30) mmol/L Glucose 504 H* (74-99) mg/dL POC Glucose (mg/dL) 457 H 375 H (70-110) mg/dL Phosphorus (2.5-4.5) mg/dL AST 14 L (17-59) U/L Alkaline Phosphatase 137 H (38-126) U/L Total Protein 6.0 L (6.3-8.2) g/dL 09/04/22 09/04/22 09/04/22 Range/Units 12:43 13:22 13:27 Sodium (137-145) mmol/L Chloride 109 H (98-107) mmol/L Carbon Dioxide 8 L* (22-30) mmol/L Glucose 268 H (74-99) mg/dL POC Glucose (mg/dL) 287 H 225 H (70-110) mg/dL Phosphorus 2.1 L (2.5-4.5) mg/dL AST (17-59) U/L Alkaline Phosphatase (38-126) U/L Total Protein (6.3-8.2) g/dL 09/04/22 09/04/22 09/04/22 Range/Units 14:27 15:33 16:19 Sodium (137-145) mmol/L Chloride (98-107) mmol/L Carbon Dioxide (22-30) mmol/L Glucose (74-99) mg/dL POC Glucose (mg/dL) 206 H 151 H 133 H (70-110) mg/dL Phosphorus (2.5-4.5) mg/dL AST (17-59) U/L Alkaline Phosphatase (38-126) U/L Total Protein (6.3-8.2) g/dL 09/04/22 09/04/22 09/04/22 Range/Units 17:12 17:39 18:17 Sodium (137-145) mmol/L Chloride 110 H (98-107) mmol/L Carbon Dioxide 17 L (22-30) mmol/L Glucose 124 H (74-99) mg/dL POC Glucose (mg/dL) 114 H 126 H (70-110) mg/dL Phosphorus 2.4 L (2.5-4.5) mg/dL AST (17-59) U/L Alkaline Phosphatase (38-126) U/L Total Protein (6.3-8.2) g/dL 09/04/22 09/04/22 09/04/22 Range/Units 19:15 20:34 21:28 Sodium (137-145) mmol/L Chloride (98-107) mmol/L Carbon Dioxide (22-30) mmol/L Glucose (74-99) mg/dL POC Glucose (mg/dL) 135 H 209 H 292 H (70-110) mg/dL Phosphorus (2.5-4.5) mg/dL AST (17-59) U/L Alkaline Phosphatase (38-126) U/L Total Protein (6.3-8.2) g/dL 09/04/22 09/04/22 09/05/22 Range/Units 22:29 23:45 00:30 Sodium (137-145) mmol/L Chloride (98-107) mmol/L Carbon Dioxide (22-30) mmol/L Glucose (74-99) mg/dL POC Glucose (mg/dL) 325 H 352 H 375 H (70-110) mg/dL Phosphorus (2.5-4.5) mg/dL AST (17-59) U/L Alkaline Phosphatase (38-126) U/L Total Protein (6.3-8.2) g/dL 09/05/22 09/05/22 09/05/22 Range/Units 01:29 02:29 03:31 Sodium (137-145) mmol/L Chloride (98-107) mmol/L Carbon Dioxide (22-30) mmol/L Glucose (74-99) mg/dL POC Glucose (mg/dL) 321 H 376 H 335 H (70-110) mg/dL Phosphorus (2.5-4.5) mg/dL AST (17-59) U/L Alkaline Phosphatase (38-126) U/L Total Protein (6.3-8.2) g/dL 09/05/22 09/05/22 09/05/22 Range/Units 04:32 05:36 06:43 Sodium (137-145) mmol/L Chloride (98-107) mmol/L Carbon Dioxide (22-30) mmol/L Glucose (74-99) mg/dL POC Glucose (mg/dL) 279 H 253 H 206 H (70-110) mg/dL Phosphorus (2.5-4.5) mg/dL AST (17-59) U/L Alkaline Phosphatase (38-126) U/L Total Protein (6.3-8.2) g/dL 09/05/22 09/05/22 09/05/22 Range/Units 07:26 07:50 08:29 Sodium (137-145) mmol/L Chloride 108 H (98-107) mmol/L Carbon Dioxide 20 L (22-30) mmol/L Glucose 223 H (74-99) mg/dL POC Glucose (mg/dL) 213 H 200 H (70-110) mg/dL Phosphorus (2.5-4.5) mg/dL AST (17-59) U/L Alkaline Phosphatase (38-126) U/L Total Protein (6.3-8.2) g/dL
[2022-09-05] MEDS ORDERED: DEXTROSE 50% SYRINGE 50 ML IVP PRN ×2 (10:38)
[2022-09-05 11:02] LABS: HCT 36.1 % (39.0-53.0); HGB 12.4 gm/dL (13.0-17.5); MCH 31.5 pg (25.0-35.0); MCHC 34.4 g/dL (31.0-37.0); MCV 91.5 fL (80.0-100.0); Mean Platelet Volume 8.2; Platelet Count 272 k/uL (150-450); RBC 3.95 m/uL (4.30-5.90); RDW 12.6 % (11.5-15.5); WBC 14.1 k/uL (3.8-10.6)
[2022-09-05 11:35] LABS: Glucose,Whole Blood 157 mg/dL (70-110)
[2022-09-05] MEDS: lisinopriL 20 MG TAB PO SCH (12:48)
[2022-09-05] MEDS: QUEtiapine 50 MG TAB PO SCH ×2 (12:48→20:44)
[2022-09-05] MEDS: TRIHEXYPHENIDYL 2 MG TAB PO SCH ×2 (12:48→20:44)
[2022-09-05] MEDS: amLODIPine 5 MG TAB PO SCH (12:48)
[2022-09-05] MEDS: METOPROLOL TARTRATE 50 MG TAB PO SCH ×2 (12:48→20:43)
[2022-09-05] MEDS: ATORVASTATIN 10 MG TAB PO SCH (12:48)
[2022-09-05] MEDS: INSULIN ASPART (NovoLOG) 100 UNIT/ML VIAL SQ SCH ×3 (12:57→20:47)
[2022-09-05] MEDS: prednisoLONE ACETATE 1% OPHTH DROPS 5 ML BTL LEFT EYE SCH (12:59)
[2022-09-05] MEDS: ATROPINE OPHTH SOLN 1% 5ML BTL BOTH EYES SCH (12:59)
--- NOTE | 2022-09-05 13:06 | P.GSCN ---
History of Present Illness Consult date: 09/05/22 History of present illness: CHIEF COMPLAINT: Elevated blood sugars HISTORY OF PRESENT ILLNESS: This is a 36-year-old male who is a type 1 insulin- dependent diabetic. He presented to the emergency department with hyperglycemia and nausea and vomiting 4 days. He complains of mid abdominal pain. His emesis has been dark in color and possibly black. Patient reports that these are similar symptoms that he gets when he is in DKA. Patient currently on insulin drip. Surgical service has been consulted in regards to emesis. Last EGD was in April 2022 has shown gastritis, esophagitis and hiatal hernia. Last colonoscopy was April 2022 normal but poor bowel prep. Patient's hemoglobin is 12. The computed tomography scan of the chest abdomen pelvis had shown thi ckening of the esophageal wall and concerns for esophagitis. No acute abnormalities. Patient has been tachycardic and followed by cardiology. Patient denies being on any blood. Denies any NSAID use. PAST MEDICAL HISTORY: See below PAST SURGICAL HISTORY: See below. Stomach stimulator MEDICATIONS: See below ALLERGIES: See below SOCIAL HISTORY: No illicit drug use. REVIEW OF SYSTEMS: CONSTITUTIONAL: Denies fever or chills. HEENT: Denies blurred vision, vision changes, or eye pain. Denies hemoptysis CARDIOVASCULAR: Denies chest pain or pressure. RESPIRATORY: No shortness of breath. GASTROINTESTINAL: See HPI for pertinent findings HEMATOLOGIC: Denies bleeding disorders. GENITOURINARY: Denies any blood in urine or increased urinary frequency. SKIN: Denies pruitis. Denies rash. PHYSICAL EXAM: VITAL SIGNS: Reviewed GENERAL: Well-developed in no acute distress. ABDOMEN: Soft. Nondistended. Mild epigastric tenderness NEUROLOGIC: Alert and oriented. Cranial nerves II through XII grossly intact. LABORATORY DATA: WBC 26.8 down to 14.1 HgB 12.4 platelets 272 Na 137 potassium 4.0 creatinine 0.90 Glucose 539-223 Magnesium 1.8 IMAGING: Computed tomography scan chest abdomen pelvis thickened esophageal wall throughout, correlate with esophagitis. No acute findings. ASSESSMENT: 1. Epigastric abdominal pain with nausea and vomiting 2. DKA 3. History of gastritis, esophagitis and hiatal hernia PLAN: -Emesis dark in color will check gastric fluid for occult blood. HGB stable. -Continue IV Protonix -Compazine added for nausea and vomiting -Continue IV fluids -Continue clear liquid diet -Further recommendations forthcoming per surgeon Physician Health Concierge note has been reviewed by physician. Signing provider agrees with the documented findings, assessment, and plan of care. I have personally seen and examined the patient, reviewed the [employer] /PAs history, exam and MDM and agree with the assessment and plan as written. Based on total visit time, I have performed more than 50% of the visit. As above: Patient with ongoing abdominal discomfort and nausea. Some vomiting. CAT scan shows significant gastric distention consistent with gastroparesis. Recommend nasogastric tube placement. Patient refusing. Recheck abdominal x- rays tomorrow. Keep nothing by mouth. Past Medical History Past Medical History: Diabetes Mellitus Additional Past Medical History / Comment(s): bilateral glaucoma, Tachycardia, diabetic gastropariesis, diabetic neuropathy, migraine headaches, peptic ulcer disease, retinal detachment status post multiple surgeries History of Any Multi-Drug Resistant Organisms: None Reported Past Surgical History: Pacemaker Additional Past Surgical History / Comment(s): eye surgery, EGDs Past Anesthesia/Blood Transfusion Reactions: No Reported Reaction Past Psychological History: Anxiety, Bipolar, Depression Smoking Status: Current every day smoker Past Alcohol Use History: None Reported Past Drug Use History: None Reported - Past Family History Father Additional Family Medical History / Comment(s): Patient does not know his father's age nor his health problems. Mother Additional Family Medical History / Comment(s): Patient does not know his mother's age but states she has fibromyalgia. Sister(s) Additional Family Medical History / Comment(s): Patient has 1 sister with no major medical problems. Medications and Allergies Home Medications Medication Instructions Recorded Confirmed Type Metoprolol Tartrate [Lopressor] 150 mg PO BID 06/04/16 09/03/22 History Atorvastatin [Lipitor] 10 mg PO DAILY 01/08/22 09/03/22 History Atropine Sulfate [Atropine Sulfate 1 drop LEFT EYE BID 01/08/22 09/05/22 History 1%] Insulin Aspart (Niacinamide) 0.01 unit SQ-PUMP CONTINUOUS 01/08/22 09/03/22 History [Fiasp 100 Unit/ml Vial] Lurasidone HCl [Latuda] 120 mg PO W/SUPPER 01/08/22 09/03/22 History Lurasidone [Latuda] 40 mg PO W/BRKFST 01/08/22 09/03/22 History Montelukast [Singulair] 10 mg PO HS 01/08/22 09/03/22 History QUEtiapine XR [SEROquel XR] 100 mg PO HS 01/08/22 09/03/22 History prednisoLONE ACETATE 1% OPHTH 1 drop RIGHT EYE BID 01/08/22 09/05/22 History [Pred Forte 1%] Pantoprazole [Protonix] 40 mg PO DAILY 04/08/22 09/03/22 History QUEtiapine FUMARATE [SEROquel] 25 mg PO HS@1900 04/08/22 09/03/22 History Trihexyphenidyl [Artane] 2 mg PO DAILY 04/08/22 09/03/22 History carBAMazepine CHEW [TEGretol Chew] 100 mg PO BID 04/08/22 09/03/22 History amLODIPine [Norvasc] 5 mg PO DAILY 90 Days #90 tab 04/13/22 09/03/22 Rx Albuterol Inhaler [Ventolin Hfa 2 puff INHALATION RT-Q4H PRN 09/03/22 09/03/22 History Inhaler] Glucagon Emergency Kit 1 mg IM ONCE PRN 09/03/22 09/03/22 History Omeprazole [PriLOSEC] 20 mg PO HS 09/03/22 09/03/22 History Rizatriptan Benzoate [Maxalt] 10 mg PO DAILY PRN 09/03/22 09/03/22 History Tiotropium 2.5 Mcg/Puff [Spiriva 2 puff INHALATION RT-DAILY 09/03/22 09/03/22 History Respimat 2.5 Mcg] Trihexyphenidyl [Artane] 4 mg PO HS 09/03/22 09/03/22 History cloNIDine HCL [Catapres] 0.2 mg PO BID 09/03/22 09/03/22 History lisinopriL [Zestril] 20 mg PO DAILY 09/03/22 09/03/22 History methocarbamoL [Robaxin-750] 750 mg PO BID PRN 09/03/22 09/03/22 History Allergies Allergy/AdvReac Type Severity Reaction Status Date / Time adhesive tape Allergy Rash/Hives Verified 09/03/22 21:43 cefazolin Allergy Rash/Hives Verified 09/03/22 21:43 latex Allergy Rash/Hives Verified 09/03/22 21:43 metoclopramide [From Reglan] AdvReac Severe Tardive Verified 09/03/22 21:43 Dyskinesia amoxicillin [From Augmentin] AdvReac Nausea & Verified 09/03/22 21:43 Vomiting & Diarrhea clavulanic acid AdvReac Nausea & Verified 09/03/22 21:43 [From Augmentin] Vomiting & Diarrhea duloxetine [From Cymbalta] AdvReac Hallucinati Verified 09/03/22 21:43 ons pregabalin [From Lyrica] AdvReac Hallucinati Verified 09/03/22 21:43 ons Surgical - Exam Vital Signs Temp Pulse Resp BP Pulse Ox 99.0 F 143 H 19 106/74 98 09/03/22 14:01 09/03/22 14:01 09/03/22 14:01 09/03/22 14:01 09/03/22 14:01 Results - Labs 09/05/22 10:13 09/05/22 07:26 Abnormal Lab Results - Last 24 Hours (Table) 09/04/22 09/04/22 09/04/22 Range/Units 11:32 12:43 13:22 WBC (3.8-10.6) k/uL RBC (4.30-5.90) m/uL Hgb (13.0-17.5) gm/dL Hct (39.0-53.0) % Chloride 109 H (98-107) mmol/L Carbon Dioxide 8 L* (22-30) mmol/L Glucose 268 H (74-99) mg/dL POC Glucose (mg/dL) 375 H 287 H (70-110) mg/dL Phosphorus 2.1 L (2.5-4.5) mg/dL Procalcitonin (0.02-0.09) ng/mL 09/04/22 09/04/22 09/04/22 Range/Units 13:27 14:27 15:33 WBC (3.8-10.6) k/uL RBC (4.30-5.90) m/uL Hgb (13.0-17.5) gm/dL Hct (39.0-53.0) % Chloride (98-107) mmol/L Carbon Dioxide (22-30) mmol/L Glucose (74-99) mg/dL POC Glucose (mg/dL) 225 H 206 H 151 H (70-110) mg/dL Phosphorus (2.5-4.5) mg/dL Procalcitonin (0.02-0.09) ng/mL 09/04/22 09/04/22 09/04/22 Range/Units 16:19 17:12 17:39 WBC (3.8-10.6) k/uL RBC (4.30-5.90) m/uL Hgb (13.0-17.5) gm/dL Hct (39.0-53.0) % Chloride 110 H (98-107) mmol/L Carbon Dioxide 17 L (22-30) mmol/L Glucose 124 H (74-99) mg/dL POC Glucose (mg/dL) 133 H 114 H (70-110) mg/dL Phosphorus 2.4 L (2.5-4.5) mg/dL Procalcitonin (0.02-0.09) ng/mL 09/04/22 09/04/22 09/04/22 Range/Units 17:39 18:17 19:15 WBC (3.8-10.6) k/uL RBC (4.30-5.90) m/uL Hgb (13.0-17.5) gm/dL Hct (39.0-53.0) % Chloride (98-107) mmol/L Carbon Dioxide (22-30) mmol/L Glucose (74-99) mg/dL POC Glucose (mg/dL) 126 H 135 H (70-110) mg/dL Phosphorus (2.5-4.5) mg/dL Procalcitonin 2.78 H (0.02-0.09) ng/mL 09/04/22 09/04/22 09/04/22 Range/Units 20:34 21:28 22:29 WBC (3.8-10.6) k/uL RBC (4.30-5.90) m/uL Hgb (13.0-17.5) gm/dL Hct (39.0-53.0) % Chloride (98-107) mmol/L Carbon Dioxide (22-30) mmol/L Glucose (74-99) mg/dL POC Glucose (mg/dL) 209 H 292 H 325 H (70-110) mg/dL Phosphorus (2.5-4.5) mg/dL Procalcitonin (0.02-0.09) ng/mL 09/04/22 09/05/22 09/05/22 Range/Units 23:45 00:30 01:29 WBC (3.8-10.6) k/uL RBC (4.30-5.90) m/uL Hgb (13.0-17.5) gm/dL Hct (39.0-53.0) % Chloride (98-107) mmol/L Carbon Dioxide (22-30) mmol/L Glucose (74-99) mg/dL POC Glucose (mg/dL) 352 H 375 H 321 H (70-110) mg/dL Phosphorus (2.5-4.5) mg/dL Procalcitonin (0.02-0.09) ng/mL 09/05/22 09/05/22 09/05/22 Range/Units 02:29 03:31 04:32 WBC (3.8-10.6) k/uL RBC (4.30-5.90) m/uL Hgb (13.0-17.5) gm/dL Hct (39.0-53.0) % Chloride (98-107) mmol/L Carbon Dioxide (22-30) mmol/L Glucose (74-99) mg/dL POC Glucose (mg/dL) 376 H 335 H 279 H (70-110) mg/dL Phosphorus (2.5-4.5) mg/dL Procalcitonin (0.02-0.09) ng/mL 09/05/22 09/05/22 09/05/22 Range/Units 05:36 06:43 07:26 WBC (3.8-10.6) k/uL RBC (4.30-5.90) m/uL Hgb (13.0-17.5) gm/dL Hct (39.0-53.0) % Chloride 108 H (98-107) mmol/L Carbon Dioxide 20 L (22-30) mmol/L Glucose 223 H (74-99) mg/dL POC Glucose (mg/dL) 253 H 206 H (70-110) mg/dL Phosphorus (2.5-4.5) mg/dL Procalcitonin (0.02-0.09) ng/mL 09/05/22 09/05/22 09/05/22 Range/Units 07:50 08:29 09:49 WBC (3.8-10.6) k/uL RBC (4.30-5.90) m/uL Hgb (13.0-17.5) gm/dL Hct (39.0-53.0) % Chloride (98-107) mmol/L Carbon Dioxide (22-30) mmol/L Glucose (74-99) mg/dL POC Glucose (mg/dL) 213 H 200 H 165 H (70-110) mg/dL Phosphorus (2.5-4.5) mg/dL Procalcitonin (0.02-0.09) ng/mL 09/05/22 Range/Units 10:13 WBC 14.1 H (3.8-10.6) k/uL RBC 3.95 L (4.30-5.90) m/uL Hgb 12.4 L (13.0-17.5) gm/dL Hct 36.1 L (39.0-53.0) % Chloride (98-107) mmol/L Carbon Dioxide (22-30) mmol/L Glucose (74-99) mg/dL POC Glucose (mg/dL) (70-110) mg/dL Phosphorus (2.5-4.5) mg/dL Procalcitonin (0.02-0.09) ng/mL Diabetes panel 09/04/22 09/04/22 09/05/22 Range/Units 13:22 17:39 07:26 Sodium 140 143 137 (137-145) mmol/L Potassium 4.7 4.2 4.0 (3.5-5.1) mmol/L Chloride 109 H 110 H 108 H (98-107) mmol/L Carbon Dioxide 8 L* 17 L 20 L (22-30) mmol/L BUN 13 12 11 (9-20) mg/dL Creatinine 1.20 1.12 0.90 (0.66-1.25) mg/dL Glucose 268 H 124 H 223 H (74-99) mg/dL Calcium 8.9 9.1 9.1 (8.4-10.2) mg/dL Calcium panel 09/04/22 09/04/22 09/04/22 Range/Units 07:37 13:22 17:39 Calcium 8.9 9.1 (8.4-10.2) mg/dL Phosphorus 4.3 2.1 L 2.4 L (2.5-4.5) mg/dL 09/05/22 Range/Units 07:26 Calcium 9.1 (8.4-10.2) mg/dL Phosphorus (2.5-4.5) mg/dL Pituitary panel 09/04/22 09/04/22 09/05/22 Range/Units 13:22 17:39 07:26 Sodium 140 143 137 (137-145) mmol/L Potassium 4.7 4.2 4.0 (3.5-5.1) mmol/L Chloride 109 H 110 H 108 H (98-107) mmol/L Carbon Dioxide 8 L* 17 L 20 L (22-30) mmol/L BUN 13 12 11 (9-20) mg/dL Creatinine 1.20 1.12 0.90 (0.66-1.25) mg/dL Glucose 268 H 124 H 223 H (74-99) mg/dL Calcium 8.9 9.1 9.1 (8.4-10.2) mg/dL Adrenal panel 09/04/22 09/04/22 09/05/22 Range/Units 13:22 17:39 07:26 Sodium 140 143 137 (137-145) mmol/L Potassium 4.7 4.2 4.0 (3.5-5.1) mmol/L Chloride 109 H 110 H 108 H (98-107) mmol/L Carbon Dioxide 8 L* 17 L 20 L (22-30) mmol/L BUN 13 12 11 (9-20) mg/dL Creatinine 1.20 1.12 0.90 (0.66-1.25) mg/dL Glucose 268 H 124 H 223 H (74-99) mg/dL Calcium 8.9 9.1 9.1 (8.4-10.2) mg/dL
[2022-09-05] MEDS: PROCHLORPERAZINE INJ 10 MG/2 ML VIAL IVP PRN (15:34)
[2022-09-05 16:37] LABS: Glucose,Whole Blood 341 mg/dL (70-110)
[2022-09-05] MEDS: LURASIDONE 60 MG TAB PO SCH (18:24)
[2022-09-05 20:09] LABS: Glucose,Whole Blood 209 mg/dL (70-110)
[2022-09-05] MEDS: MONTELUKAST 10 MG TAB PO SCH (20:43)
[2022-09-05] MEDS: ATROPINE OPHTH SOLN 1% 5ML BTL LEFT EYE SCH (20:43)
[2022-09-05] MEDS: prednisoLONE ACETATE 1% OPHTH DROPS 5 ML BTL RIGHT EYE SCH (20:43)
[2022-09-05] MEDS: QUEtiapine 25 MG TAB PO SCH (20:44)
--- NOTE | 2022-09-05 21:00 | PN ---
PROGRESS NOTE SUBJECTIVE: The patient is doing better. He starts eating clear liquids. He still has nausea and dry heaving. Surgical consult was done as well as Cardiology consult for tachycardia. Echo was ordered. CAT scan shows thickened esophageal wall/esophagitis, dark in color. Check gastric fluid for occult blood. Hemoglobin is stable. Continue Protonix, Compazine, IV fluids, and clear liquids. . Cardiology saw the patient, recommends DKA treatment and IV Lopressor until oral medications are tolerated. Continue current treatment. OBJECTIVE: VITAL SIGNS: His pulse rate is still in the low 100s. He is on IV Lopressor. Respiratory rate is 16 to 18. Blood pressure is 160s over 80s. I started him on Catapres patch instead of the oral pills due to vomiting. Temperature 98. GI: Soft. Tenderness to palpation in the epigastric. HEMATOLOGY: Negative Homans. PSYCHIATRIC: Fair mood and affect. LABORATORY DATA: White count is 14, hemoglobin is 12.4. Sugars are in the 100s to 200s. Magnesium is 1.8. PLAN: Recheck electrolytes in the morning. His white count is greatly reduced. Wait for Dr. Tafoya's recommendations on antibiotics. Prognosis is guarded. Please see further orders. MMODL / IJN: [id number] /
--- NOTE | 2022-09-05 22:53 | P.CONS ---
History of Present Illness - Reason for Consult Consult date: 09/05/22 - History of Present Illness Patient is a 36-year-old male with a past medical history significant for insulin-dependent diabetes mellitus and diabetic gastroparesis and diabetic neuropathy did have a history of diabetic foot infection in addition to anxiety bipolar depression patient was brought into the hospital 2 days ago and the patient was noticed to have elevated blood sugar patient has been feeling naus eated and vomiting and complaining of generalized body aches family was concerned for possible DKA on presentation to the hospital patient did have low- grade fever of 99 F the patient is afebrile since then, patient was mildly tachycardic however not hypotensive or hypoxic work-up included so far the patient noticed to have white count of 12.1 we did jump to 26.8 yesterday however is down to 14.1 today kidney function has been normal he did have blood sugar of 5.9 on admission [facility] elevated 2.78 urine has been negative serum acetone was positive patient did have a CT of the chest abdominal pelvis no acute findings any abdominal pelvis CT of the chest did shows thickened esophagus wall rule out correlate with esophagitis patient is currently not on antibiotics infectious disease was consulted for further management of his elevated white count. Past Medical History Past Medical History: Diabetes Mellitus Additional Past Medical History / Comment(s): bilateral glaucoma, Tachycardia, diabetic gastropariesis, diabetic neuropathy, migraine headaches, peptic ulcer disease, retinal detachment status post multiple surgeries History of Any Multi-Drug Resistant Organisms: None Reported Past Surgical History: Pacemaker Additional Past Surgical History / Comment(s): eye surgery, EGDs Past Anesthesia/Blood Transfusion Reactions: No Reported Reaction Past Psychological History: Anxiety, Bipolar, Depression Smoking Status: Current every day smoker Past Alcohol Use History: None Reported Past Drug Use History: None Reported - Past Family History Father Additional Family Medical History / Comment(s): Patient does not know his father's age nor his health problems. Mother Additional Family Medical History / Comment(s): Patient does not know his mother's age but states she has fibromyalgia. Sister(s) Additional Family Medical History / Comment(s): Patient has 1 sister with no major medical problems. Medications and Allergies Home Medications Medication Instructions Recorded Confirmed Type Metoprolol Tartrate [Lopressor] 150 mg PO BID 06/04/16 09/03/22 History Atorvastatin [Lipitor] 10 mg PO DAILY 01/08/22 09/03/22 History Atropine Sulfate [Atropine Sulfate 1 drop LEFT EYE BID 01/08/22 09/05/22 History 1%] Insulin Aspart (Niacinamide) 0.01 unit SQ-PUMP CONTINUOUS 01/08/22 09/03/22 History [Fiasp 100 Unit/ml Vial] Lurasidone HCl [Latuda] 120 mg PO W/SUPPER 01/08/22 09/03/22 History Lurasidone [Latuda] 40 mg PO W/BRKFST 01/08/22 09/03/22 History Montelukast [Singulair] 10 mg PO HS 01/08/22 09/03/22 History QUEtiapine XR [SEROquel XR] 100 mg PO HS 01/08/22 09/03/22 History prednisoLONE ACETATE 1% OPHTH 1 drop RIGHT EYE BID 01/08/22 09/05/22 History [Pred Forte 1%] Pantoprazole [Protonix] 40 mg PO DAILY 04/08/22 09/03/22 History QUEtiapine FUMARATE [SEROquel] 25 mg PO HS@1900 04/08/22 09/03/22 History Trihexyphenidyl [Artane] 2 mg PO DAILY 04/08/22 09/03/22 History carBAMazepine CHEW [TEGretol Chew] 100 mg PO BID 04/08/22 09/03/22 History amLODIPine [Norvasc] 5 mg PO DAILY 90 Days #90 tab 04/13/22 09/03/22 Rx Albuterol Inhaler [Ventolin Hfa 2 puff INHALATION RT-Q4H PRN 09/03/22 09/03/22 H istory Inhaler] Glucagon Emergency Kit 1 mg IM ONCE PRN 09/03/22 09/03/22 History Omeprazole [PriLOSEC] 20 mg PO HS 09/03/22 09/03/22 History Rizatriptan Benzoate [Maxalt] 10 mg PO DAILY PRN 09/03/22 09/03/22 History Tiotropium 2.5 Mcg/Puff [Spiriva 2 puff INHALATION RT-DAILY 09/03/22 09/03/22 History Respimat 2.5 Mcg] Trihexyphenidyl [Artane] 4 mg PO HS 09/03/22 09/03/22 History cloNIDine HCL [Catapres] 0.2 mg PO BID 09/03/22 09/03/22 History lisinopriL [Zestril] 20 mg PO DAILY 09/03/22 09/03/22 History methocarbamoL [Robaxin-750] 750 mg PO BID PRN 09/03/22 09/03/22 History Allergies Allergy/AdvReac Type Severity Reaction Status Date / Time adhesive tape Allergy Rash/Hives Verified 09/03/22 21:43 cefazolin Allergy Rash/Hives Verified 09/03/22 21:43 latex Allergy Rash/Hives Verified 09/03/22 21:43 metoclopramide [From Reglan] AdvReac Severe Tardive Verified 09/03/22 21:43 Dyskinesia amoxicillin [From Augmentin] AdvReac Nausea & Verified 09/03/22 21:43 Vomiting & Diarrhea clavulanic acid AdvReac Nausea & Verified 09/03/22 21:43 [From Augmentin] Vomiting & Diarrhea duloxetine [From Cymbalta] AdvReac Hallucinati Verified 09/03/22 21:43 ons pregabalin [From Lyrica] AdvReac Hallucinati Verified 09/03/22 21:43 ons Physical Exam Vitals: Vital Signs Temp Pulse Resp BP Pulse Ox 09/05/22 08:50 98.1 F 129 H 16 169/85 99 09/05/22 04:00 98.1 F 124 H 16 166/87 98 09/05/22 00:00 97.9 F 18 165/95 98 09/04/22 20:00 98 F 125 H 16 160/99 96 09/04/22 16:00 98.7 F 135 H 17 154/135 98 09/04/22 13:00 137/83 09/04/22 12:00 98.6 F 130 H 19 176/104 97 Intake and Output 09/04/22 09/05/22 09/05/22 22:59 06:59 14:59 Intake Total 1511.866 9637.554 240 Output Total 1050 Balance -21.945 3142.554 240 Intake: IV 1000 Sodium Chloride 0.9% 1, 1000 000 ml @ 200 mls/hr IV . Q5H [facility] Rx#:[id number] Intake, IV Titration 28.055 1522.554 Amount D5-0.45% NaCl with KCl 1507 20Meq/l 1,000 ml @ 150 mls/hr IV .Q6H40M [facility] Rx# :[id number] Insulin Regular 100 unit 28.055 15.554 In Sodium Chloride 0.9% 100 ml @ 0.1 UNITS/KG/HR 6.78 mls/hr IV .[id number] [facility] Rx#:[id number] Oral 1620 240 Output: Urine 650 Emesis 400 Other: # Voids 2 Results CBC & Chem 7: 09/07/22 07:47 09/07/22 07:47 Labs: Abnormal Lab Results - Last 24 Hours (Table) 09/04/22 09/04/22 09/04/22 Range/Units 11:32 12:43 13:22 WBC (3.8-10.6) k/uL RBC (4.30-5.90) m/uL Hgb (13.0-17.5) gm/dL Hct (39.0-53.0) % Chloride 109 H (98-107) mmol/L Carbon Dioxide 8 L* (22-30) mmol/L Glucose 268 H (74-99) mg/dL POC Glucose (mg/dL) 375 H 287 H (70-110) mg/dL Phosphorus 2.1 L (2.5-4.5) mg/dL Procalcitonin (0.02-0.09) ng/mL 09/04/22 09/04/22 09/04/22 Range/Units 13:27 14:27 15:33 WBC (3.8-10.6) k/uL RBC (4.30-5.90) m/uL Hgb (13.0-17.5) gm/dL Hct (39.0-53.0) % Chloride (98-107) mmol/L Carbon Dioxide (22-30) mmol/L Glucose (74-99) mg/dL POC Glucose (mg/dL) 225 H 206 H 151 H (70-110) mg/dL Phosphorus (2.5-4.5) mg/dL Procalcitonin (0.02-0.09) ng/mL 09/04/22 09/04/22 09/04/22 Range/Units 16:19 17:12 17:39 WBC (3.8-10.6) k/uL RBC (4.30-5.90) m/uL Hgb (13.0-17.5) gm/dL Hct (39.0-53.0) % Chloride 110 H (98-107) mmol/L Carbon Dioxide 17 L (22-30) mmol/L Glucose 124 H (74-99) mg/dL POC Glucose (mg/dL) 133 H 114 H (70-110) mg/dL Phosphorus 2.4 L (2.5-4.5) mg/dL Procalcitonin (0.02-0.09) ng/mL 09/04/22 09/04/22 09/04/22 Range/Units 17:39 18:17 19:15 WBC (3.8-10.6) k/uL RBC (4.30-5.90) m/uL Hgb (13.0-17.5) gm/dL Hct (39.0-53.0) % Chloride (98-107) mmol/L Carbon Dioxide (22-30) mmol/L Glucose (74-99) mg/dL POC Glucose (mg/dL) 126 H 135 H (70-110) mg/dL Phosphorus (2.5-4.5) mg/dL Procalcitonin 2.78 H (0.02-0.09) ng/mL 09/04/22 09/04/22 09/04/22 Range/Units 20:34 21:28 22:29 WBC (3.8-10.6) k/uL RBC (4.30-5.90) m/uL Hgb (13.0-17.5) gm/dL Hct (39.0-53.0) % Chloride (98-107) mmol/L Carbon Dioxide (22-30) mmol/L Glucose (74-99) mg/dL POC Glucose (mg/dL) 209 H 292 H 325 H (70-110) mg/dL Phosphorus (2.5-4.5) mg/dL Procalcitonin (0.02-0.09) ng/mL 09/04/22 09/05/22 09/05/22 Range/Units 23:45 00:30 01:29 WBC (3.8-10.6) k/uL RBC (4.30-5.90) m/uL Hgb (13.0-17.5) gm/dL Hct (39.0-53.0) % Chloride (98-107) mmol/L Carbon Dioxide (22-30) mmol/L Glucose (74-99) mg/dL POC Glucose (mg/dL) 352 H 375 H 321 H (70-110) mg/dL Phosphorus (2.5-4.5) mg/dL Procalcitonin (0.02-0.09) ng/mL 09/05/22 09/05/22 09/05/22 Range/Units 02:29 03:31 04:32 WBC (3.8-10.6) k/uL RBC (4.30-5.90) m/uL Hgb (13.0-17.5) gm/dL Hct (39.0-53.0) % Chloride (98-107) mmol/L Carbon Dioxide (22-30) mmol/L Glucose (74-99) mg/dL POC Glucose (mg/dL) 376 H 335 H 279 H (70-110) mg/dL Phosphorus (2.5-4.5) mg/dL Procalcitonin (0.02-0.09) ng/mL 09/05/22 09/05/22 09/05/22 Range/Units 05:36 06:43 07:26 WBC (3.8-10.6) k/uL RBC (4.30-5.90) m/uL Hgb (13.0-17.5) gm/dL Hct (39.0-53.0) % Chloride 108 H (98-107) mmol/L Carbon Dioxide 20 L (22-30) mmol/L Glucose 223 H (74-99) mg/dL POC Glucose (mg/dL) 253 H 206 H (70-110) mg/dL Phosphorus (2.5-4.5) mg/dL Procalcitonin (0.02-0.09) ng/mL 09/05/22 09/05/22 09/05/22 Range/Units 07:50 08:29 09:49 WBC (3.8-10.6) k/uL RBC (4.30-5.90) m/uL Hgb (13.0-17.5) gm/dL Hct (39.0-53.0) % Chloride (98-107) mmol/L Carbon Dioxide (22-30) mmol/L Glucose (74-99) mg/dL POC Glucose (mg/dL) 213 H 200 H 165 H (70-110) mg/dL Phosphorus (2.5-4.5) mg/dL Procalcitonin (0.02-0.09) ng/mL 09/05/22 09/05/22 Range/Units 10:13 11:33 WBC 14.1 H (3.8-10.6) k/uL RBC 3.95 L (4.30-5.90) m/uL Hgb 12.4 L (13.0-17.5) gm/dL Hct 36.1 L (39.0-53.0) % Chloride (98-107) mmol/L Carbon Dioxide (22-30) mmol/L Glucose (74-99) mg/dL POC Glucose (mg/dL) 157 H (70-110) mg/dL Phosphorus (2.5-4.5) mg/dL Procalcitonin (0.02-0.09) ng/mL Assessment and Plan Plan: 1patient with elevated white count in this patient presented to hospital with elevated blood sugar and did have a positive serum acetone more likely related to DKA from hemoconcentration as the patient not running any fever does not look toxic patient did have his CT of the chest abdominal pelvis did not show any a cute normality except some thickening of the esophagus with a question of esophagitis. Patient did have a negative UA and evidence of pneumonia on the CT of the chest no evidence of any open wound cellulitis or joint swelling 2-the patient white count is trending down without antibiotic therapy hence will hold on adding any systemic antibiotic therapy at this point 3there was a question of esophagitis possible fungal, cannot add Diflucan because of the drug interaction with his other medication we will add nystatin swish and swallow and see clinical response we will follow on clinical condition and cultures to further adjust medication if needed Thank you for this consultation we will follow the patient along with you Dictation was produced using [employer] software. please excuse any grammatical, word or spelling errors. Time with Patient: Greater than 30
[2022-09-06] MEDS: METOPROLOL TARTRATE 5 MG/5 ML VIAL IVP SCH ×4 (00:38→23:53)
[2022-09-06] MEDS: D5-0.45% NACL WITH KCL 20MEQ/L 1,000 ML IV SCH ×4 (02:40→19:54)
[2022-09-06] MEDS: HYDROmorphone 0.5 MG/0.5 ML SYRINGE IVP PRN ×6 (02:40→23:53)
[2022-09-06] MEDS: ONDANSETRON 4 MG/2 ML VIAL IVP PRN ×3 (02:41→20:04)
[2022-09-06 05:59] LABS: Glucose,Whole Blood 378 mg/dL (70-110)
[2022-09-06] MEDS: INSULIN ASPART (NovoLOG) 100 UNIT/ML VIAL SQ SCH ×4 (06:07→21:52)
[2022-09-06] MEDS: LURASIDONE 40 MG TAB PO SCH (06:26)
--- NOTE | 2022-09-06 07:03 | XR ---
EXAMINATION TYPE: XR abdomen 2V DATE OF EXAM: 09/06/2022 COMPARISON: CT chest abdomen pelvis 09/05/2022, abdominal radiograph 06/09/2016 HISTORY: Evaluate gastric distention TECHNIQUE: Upright and supine views of the abdomen were obtained. FINDINGS: Small bowel demonstrates no evidence for dilatation or air fluid levels. Gas and fecal material is seen in non-distended colon. No visualized gastric distention. No convincing evidence for pneumoperitoneum. No unusual calcifications. The lung bases are clear. The osseous structures are intact. Electronic device overlies the right midabdomen with leads overlying the T12 vertebral body. IMPRESSION: Overall nonobstructive bowel gas pattern. No visualize gastric distention.
[2022-09-06] MEDS: IPRATROPIUM-ALBUTEROL 3 ML NEB INHALATION SCH ×4 (09:21→20:42)
[2022-09-06] MEDS: BUDESONIDE 0.5 MG/2 ML NEBU INHALATION SCH ×2 (09:21→20:42)
[2022-09-06] MEDS: PANTOPRAZOLE 40 MG/10 ML VIAL IVP SCH ×2 (09:42→20:04)
[2022-09-06] MEDS: amLODIPine 5 MG TAB PO SCH (09:48)
[2022-09-06] MEDS: QUEtiapine 50 MG TAB PO SCH ×2 (09:49→19:57)
[2022-09-06] MEDS: prednisoLONE ACETATE 1% OPHTH DROPS 5 ML BTL RIGHT EYE SCH ×2 (09:49→19:56)
[2022-09-06] MEDS: NYSTATIN 100,000 UNIT/ML SUSP 500,000 UNIT/5 ML CUP PO SCH ×3 (09:49→19:57)
[2022-09-06] MEDS: ATROPINE OPHTH SOLN 1% 5ML BTL LEFT EYE SCH ×2 (09:49→19:55)
[2022-09-06] MEDS: TRIHEXYPHENIDYL 2 MG TAB PO SCH ×2 (09:49→19:57)
[2022-09-06] MEDS: lisinopriL 20 MG TAB PO SCH (09:49)
[2022-09-06] MEDS: METOPROLOL TARTRATE 50 MG TAB PO SCH ×3 (09:49→19:55)
[2022-09-06] MEDS: ATORVASTATIN 10 MG TAB PO SCH (09:49)
--- NOTE | 2022-09-06 10:16 | P.CNPUL ---
History of Present Illness Consult date: 09/05/22 Reason for consult: dyspnea, asthma, COPD, obstructive sleep apnea Chief complaint: Shortness breath History of present illness: 36-year-old male with the severe type 1 diabetes mellitus with associated complication presented into the hospital with uncontrolled hyperglycemia also has been episode of nausea vomiting and generalized aches and pains he is well- known to me for issues associated with chronic persistent asthma of moderate category has been on inhaled bronchodilator with inhaled corticosteroids and sleep disorder breathing and sleep apnea recently started on CPAP machine that his symptoms of progressive and last for and family decided to bring him in further evaluation patient has a history of other active medical problems including dyslipidemia hypertension hypertensive cardiovascular disease, hype rlipidemia, severe advanced diabetic gastroparesis. Patient due on sludge and noted to have an episode of tachycardia heart rate was 120 to 1:30 blood pressure slightly high and his ejection fraction is 55-60% with LVH, patient underwent computed tomography scan of the chest abdominal and pelvis, no abnormal infiltrate identified, patient noted to have thickening of esophageal wall likely esophagitis, general surgery is following him a patient was evaluated by cardiovascular services recommended Lopressor with that heart rate is better under control Review of Systems All systems: negative Past Medical History Past Medical History: Diabetes Mellitus Additional Past Medical History / Comment(s): bilateral glaucoma, Tachycardia, diabetic gastropariesis, diabetic neuropathy, migraine headaches, peptic ulcer disease, retinal detachment status post multiple surgeries History of Any Multi-Drug Resistant Organisms: None Reported Past Surgical History: Pacemaker Additional Past Surgical History / Comment(s): eye surgery, EGDs Past Anesthesia/Blood Transfusion Reactions: No Reported Reaction Past Psychological History: Anxiety, Bipolar, Depression Smoking Status: Current every day smoker Past Alcohol Use History: None Reported Past Drug Use History: None Reported - Past Family History Father Additional Family Medical History / Comment(s): Patient does not know his father's age nor his health problems. Mother Additional Family Medical History / Comment(s): Patient does not know his mother's age but states she has fibromyalgia. Sister(s) Additional Family Medical History / Comment(s): Patient has 1 sister with no major medical problems. Medications and Allergies Home Medications Medication Instructions Recorded Confirmed Type Metoprolol Tartrate [Lopressor] 150 mg PO BID 06/04/16 09/03/22 History Atorvastatin [Lipitor] 10 mg PO DAILY 01/08/22 09/03/22 History Atropine Sulfate [Atropine Sulfate 1 drop LEFT EYE BID 01/08/22 09/05/22 History 1%] Insulin Aspart (Niacinamide) 0.01 unit SQ-PUMP CONTINUOUS 01/08/22 09/03/22 History [Fiasp 100 Unit/ml Vial] Lurasidone HCl [Latuda] 120 mg PO W/SUPPER 01/08/22 09/03/22 History Lurasidone [Latuda] 40 mg PO W/BRKFST 01/08/22 09/03/22 History Montelukast [Singulair] 10 mg PO HS 01/08/22 09/03/22 History QUEtiapine XR [SEROquel XR] 100 mg PO HS 01/08/22 09/03/22 History prednisoLONE ACETATE 1% OPHTH 1 drop RIGHT EYE BID 01/08/22 09/05/22 History [Pred Forte 1%] Pantoprazole [Protonix] 40 mg PO DAILY 04/08/22 09/03/22 History QUEtiapine FUMARATE [SEROquel] 25 mg PO HS@1900 04/08/22 09/03/22 History Trihexyphenidyl [Artane] 2 mg PO DAILY 04/08/22 09/03/22 History carBAMazepine CHEW [TEGretol Chew] 100 mg PO BID 04/08/22 09/03/22 History amLODIPine [Norvasc] 5 mg PO DAILY 90 Days #90 tab 04/13/22 09/03/22 Rx Albuterol Inhaler [Ventolin Hfa 2 puff INHALATION RT-Q4H PRN 09/03/22 09/03/22 History Inhaler] Glucagon Emergency Kit 1 mg IM ONCE PRN 09/03/22 09/03/22 History Omeprazole [PriLOSEC] 20 mg PO HS 09/03/22 09/03/22 History Rizatriptan Benzoate [Maxalt] 10 mg PO DAILY PRN 09/03/22 09/03/22 History Tiotropium 2.5 Mcg/Puff [Spiriva 2 puff INHALATION RT-DAILY 09/03/22 09/03/22 History Respimat 2.5 Mcg] Trihexyphenidyl [Artane] 4 mg PO HS 09/03/22 09/03/22 History cloNIDine HCL [Catapres] 0.2 mg PO BID 09/03/22 09/03/22 History lisinopriL [Zestril] 20 mg PO DAILY 09/03/22 09/03/22 History methocarbamoL [Robaxin-750] 750 mg PO BID PRN 09/03/22 09/03/22 History Allergies Allergy/AdvReac Type Severity Reaction Status Date / Time adhesive tape Allergy Rash/Hives Verified 09/03/22 21:43 cefazolin Allergy Rash/Hives Verified 09/03/22 21:43 latex Allergy Rash/Hives Verified 09/03/22 21:43 metoclopramide [From Reglan] AdvReac Severe Tardive Verified 09/03/22 21:43 Dyskinesia amoxicillin [From Augmentin] AdvReac Nausea & Verified 09/03/22 21:43 Vomiting & Diarrhea clavulanic acid AdvReac Nausea & Verified 09/03/22 21:43 [From Augmentin] Vomiting & Diarrhea duloxetine [From Cymbalta] AdvReac Hallucinati Verified 09/03/22 21:43 ons pregabalin [From Lyrica] AdvReac Hallucinati Verified 09/03/22 21:43 ons Physical Exam Vitals: Vital Signs Temp Pulse Resp BP Pulse Ox 09/05/22 16:00 98.0 F 102 H 18 162/82 99 09/05/22 14:00 102 H 16 09/05/22 12:00 97.8 F 102 H 16 160/86 99 09/05/22 08:50 98.1 F 102 H 16 169/85 99 09/05/22 04:00 98.1 F 124 H 16 166/87 98 09/05/22 00:00 97.9 F 18 165/95 98 09/04/22 20:00 98 F 125 H 16 160/99 96 Intake and Output 09/05/22 09/05/22 09/05/22 06:59 14:59 22:59 Intake Total 3142.554 240 Balance 3142.554 240 Intake: Intake, IV Titration 1522.554 Amount D5-0.45% NaCl with KCl 1507 20Meq/l 1,000 ml @ 150 mls/hr IV .Q6H40M [facility] Rx# :[id number] Insulin Regular 100 unit 15.554 In Sodium Chloride 0.9% 100 ml @ 0.1 UNITS/KG/HR 6.78 mls/hr IV .[id number] [facility] Rx#:[id number] Oral 1620 240 Other: # Voids 2 2 Weight 67.132 kg - Constitutional General appearance: average body habitus, cooperative, disheveled - EENT Eyes: EOMI, PERRLA Ears: bilateral: normal - Neck Carotids: bilateral: upstroke normal Thyroid: bilateral: normal size - Respiratory Respiratory: bilateral: CTA - Cardiovascular Rhythm: regular Heart sounds: normal: S1, S2 - Gastrointestinal General gastrointestinal: soft - Integumentary Integumentary: normal turgor - Neurologic Neurologic: CNII-XII intact - Musculoskeletal Musculoskeletal: gait normal, generalized weakness, strength equal bilaterally - Psychiatric Psychiatric: A&O x's 3, appropriate affect, intact judgment & insight Results - Laboratory Findings CBC and BMP: 09/05/22 10:13 09/05/22 07:26 Abnormal lab findings: Abnormal Labs 09/03/22 09/03/22 09/03/22 14:05 14:25 14:25 WBC 12.4 H RBC Hgb Hct Neutrophils # 10.1 H VBG pH VBG pCO2 VBG HCO3 Sodium 132 L Potassium Chloride 96 L Carbon Dioxide 7 L* BUN 24 H Creatinine 1.84 H Glucose 539 H* POC Glucose (mg/dL) 509 H Phosphorus Magnesium 2.5 H AST Alkaline Phosphatase Total Protein Procalcitonin 09/03/22 09/03/22 09/03/22 14:25 16:22 17:12 WBC RBC Hgb Hct Neutrophils # VBG pH 7.25 L VBG pCO2 23 L VBG HCO3 10 L Sodium 134 L Potassium Chloride Carbon Dioxide 14 L BUN Creatinine Glucose POC Glucose (mg/dL) 344 H Phosphorus Magnesium AST Alkaline Phosphatase Total Protein Procalcitonin 09/03/22 09/03/22 09/03/22 17:12 17:17 18:14 WBC RBC Hgb Hct Neutrophils # VBG pH VBG pCO2 VBG HCO3 Sodium Potassium Chloride Carbon Dioxide BUN 21 H Creatinine 1.46 H Glucose 302 H POC Glucose (mg/dL) 318 H 258 H Phosphorus 1.7 L Magnesium AST Alkaline Phosphatase Total Protein Procalcitonin 09/03/22 09/03/22 09/03/22 20:11 20:11 20:11 WBC RBC Hgb Hct Neutrophils # VBG pH VBG pCO2 VBG HCO3 Sodium 136 L Potassium Chloride 108 H Carbon Dioxide 18 L BUN Creatinine Glucose 160 H POC Glucose (mg/dL) Phosphorus 1.9 L Magnesium AST Alkaline Phosphatase Total Protein Procalcitonin 09/03/22 09/03/22 09/03/22 20:54 22:11 23:20 WBC RBC Hgb Hct Neutrophils # VBG pH VBG pCO2 VBG HCO3 Sodium Potassium Chloride Carbon Dioxide BUN Creatinine Glucose POC Glucose (mg/dL) 164 H 134 H 118 H Phosphorus Magnesium AST Alkaline Phosphatase Total Protein Procalcitonin 09/04/22 09/04/22 09/04/22 00:26 01:19 02:06 WBC RBC Hgb Hct Neutrophils # VBG pH VBG pCO2 VBG HCO3 Sodium Potassium Chloride Carbon Dioxide BUN Creatinine Glucose POC Glucose (mg/dL) 133 H 155 H 140 H Phosphorus Magnesium AST Alkaline Phosphatase Total Protein Procalcitonin 09/04/22 09/04/22 09/04/22 06:28 07:37 07:37 WBC 26.8 H RBC 4.16 L Hgb 12.9 L Hct 38.4 L Neutrophils # 24.5 H VBG pH VBG pCO2 VBG HCO3 Sodium 136 L Potassium 5.2 H Chloride Carbon Dioxide 6 L* BUN Creatinine Glucose 504 H* POC Glucose (mg/dL) 452 H Phosphorus Magnesium AST 14 L Alkaline Phosphatase 137 H Total Protein 6.0 L Procalcitonin 09/04/22 09/04/22 09/04/22 07:48 09:27 11:32 WBC RBC Hgb Hct Neutrophils # VBG pH VBG pCO2 VBG HCO3 Sodium Potassium Chloride Carbon Dioxide BUN Creatinine Glucose POC Glucose (mg/dL) 480 H 457 H 375 H Phosphorus Magnesium AST Alkaline Phosphatase Total Protein Procalcitonin 09/04/22 09/04/22 09/04/22 12:43 13:22 13:27 WBC RBC Hgb Hct Neutrophils # VBG pH VBG pCO2 VBG HCO3 Sodium Potassium Chloride 109 H Carbon Dioxide 8 L* BUN Creatinine Glucose 268 H POC Glucose (mg/dL) 287 H 225 H Phosphorus 2.1 L Magnesium AST Alkaline Phosphatase Total Protein Procalcitonin 09/04/22 09/04/22 09/04/22 14:27 15:33 16:19 WBC RBC Hgb Hct Neutrophils # VBG pH VBG pCO2 VBG HCO3 Sodium Potassium Chloride Carbon Dioxide BUN Creatinine Glucose POC Glucose (mg/dL) 206 H 151 H 133 H Phosphorus Magnesium AST Alkaline Phosphatase Total Protein Procalcitonin 09/04/22 09/04/22 09/04/22 17:12 17:39 17:39 WBC RBC Hgb Hct Neutrophils # VBG pH VBG pCO2 VBG HCO3 Sodium Potassium Chloride 110 H Carbon Dioxide 17 L BUN Creatinine Glucose 124 H POC Glucose (mg/dL) 114 H Phosphorus 2.4 L Magnesium AST Alkaline Phosphatase Total Protein Procalcitonin 2.78 H 09/04/22 09/04/22 09/04/22 18:17 19:15 20:34 WBC RBC Hgb Hct Neutrophils # VBG pH VBG pCO2 VBG HCO3 Sodium Potassium Chloride Carbon Dioxide BUN Creatinine Glucose POC Glucose (mg/dL) 126 H 135 H 209 H Phosphorus Magnesium AST Alkaline Phosphatase Total Protein Procalcitonin 09/04/22 09/04/22 09/04/22 21:28 22:29 23:45 WBC RBC Hgb Hct Neutrophils # VBG pH VBG pCO2 VBG HCO3 Sodium Potassium Chloride Carbon Dioxide BUN Creatinine Glucose POC Glucose (mg/dL) 292 H 325 H 352 H Phosphorus Magnesium AST Alkaline Phosphatase Total Protein Procalcitonin 09/05/22 09/05/22 09/05/22 00:30 01:29 02:29 WBC RBC Hgb Hct Neutrophils # VBG pH VBG pCO2 VBG HCO3 Sodium Potassium Chloride Carbon Dioxide BUN Creatinine Glucose POC Glucose (mg/dL) 375 H 321 H 376 H Phosphorus Magnesium AST Alkaline Phosphatase Total Protein Procalcitonin 09/05/22 09/05/22 09/05/22 03:31 04:32 05:36 WBC RBC Hgb Hct Neutrophils # VBG pH VBG pCO2 VBG HCO3 Sodium Potassium Chloride Carbon Dioxide BUN Creatinine Glucose POC Glucose (mg/dL) 335 H 279 H 253 H Phosphorus Magnesium AST Alkaline Phosphatase Total Protein Procalcitonin 09/05/22 09/05/22 09/05/22 06:43 07:26 07:50 WBC RBC Hgb Hct Neutrophils # VBG pH VBG pCO2 VBG HCO3 Sodium Potassium Chloride 108 H Carbon Dioxide 20 L BUN Creatinine Glucose 223 H POC Glucose (mg/dL) 206 H 213 H Phosphorus Magnesium AST Alkaline Phosphatase Total Protein Procalcitonin 09/05/22 09/05/22 09/05/22 08:29 09:49 10:13 WBC 14.1 H RBC 3.95 L Hgb 12.4 L Hct 36.1 L Neutrophils # VBG pH VBG pCO2 VBG HCO3 Sodium Potassium Chloride Carbon Dioxide BUN Creatinine Glucose POC Glucose (mg/dL) 200 H 165 H Phosphorus Magnesium AST Alkaline Phosphatase Total Protein Procalcitonin 09/05/22 09/05/22 11:33 16:35 WBC RBC Hgb Hct Neutrophils # VBG pH VBG pCO2 VBG HCO3 Sodium Potassium Chloride Carbon Dioxide BUN Creatinine Glucose POC Glucose (mg/dL) 157 H 341 H Phosphorus Magnesium AST Alkaline Phosphatase Total Protein Procalcitonin - Diagnostic Findings Chest x-ray: report reviewed, image reviewed CT scan - chest: report reviewed, image reviewed Assessment and Plan Assessment: Chronic persistent mild asthma, continue bronchodilator along with inhaled corticosteroids Sleep disorder breathing and sleep apnea patient recommended to bring CPAP machine from home and start using it Uncontrolled diabetes and hyperglycemia, continue short and long-acting insulin Nausea vomiting advanced gastroparesis, continue prokinetic agent and entire reflex measures general surgery has been following Plan: As above Time with Patient: Greater than 30
--- NOTE | 2022-09-06 10:19 | P.PN ---
Subjective Progress Note Date: 09/06/22 Principal diagnosis: Chronic persistent mild asthma, continue bronchodilator along with inhaled corticosteroids Sleep disorder breathing and sleep apnea patient recommended to bring CPAP machine from home and start using it Uncontrolled diabetes and hyperglycemia, continue short and long-acting insulin Nausea vomiting advanced gastroparesis, continue prokinetic agent and entire reflex measures general surgery has been following 09/06/2022, patient seen eval examined during the rounds labs reviewed medications reviewed care plan discussed, respiratory status improved, denies any chest pain, patient has been advised to get CPAP machine from home and use it at nighttime however due to ongoing nausea and emesis reluctant to use it which is understandable, tachycardia significantly improved heart rate is ranging 500-105, patient is afebrile hemodynamic status stable oxygen saturation 97% 36-year-old male with the severe type 1 diabetes mellitus with associated compli cation presented into the hospital with uncontrolled hyperglycemia also has been episode of nausea vomiting and generalized aches and pains he is well-known to me for issues associated with chronic persistent asthma of moderate category has been on inhaled bronchodilator with inhaled corticosteroids and sleep disorder breathing and sleep apnea recently started on CPAP machine that his symptoms of progressive and last for and family decided to bring him in further evaluation patient has a history of other active medical problems including dyslipidemia hypertension hypertensive cardiovascular disease, hyperlipidemia, severe advanced diabetic gastroparesis. Patient due on sludge and noted to have an episode of tachycardia heart rate was 120 to 1:30 blood pressure slightly high and his ejection fraction is 55-60% with LVH, patient underwent computed tomography scan of the chest abdominal and pelvis, no abnormal infiltrate identified, patient noted to have thickening of esophageal wall likely esophagitis, general surgery is following him a patient was evaluated by cardiovascular services recommended Lopressor with that heart rate is better under control Objective - Vital Signs Vital signs: Vital Signs Temp 97.9 F 09/06/22 08:00 Pulse 105 H 09/06/22 08:00 Resp 18 09/06/22 08:00 BP 143/82 09/06/22 08:00 Pulse Ox 97 09/06/22 08:00 FiO2 100 09/03/22 22:54 Intake & Output 09/05/22 09/06/22 09/06/22 18:59 06:59 18:59 Intake Total 240 Output Total 625 Balance 240 -625 Weight 67.132 kg Intake: Oral 240 Output: Urine 625 Other: # Voids 2 2 - Exam - Constitutional General appearance: average body habitus, cooperative, disheveled - EENT Eyes: EOMI, PERRLA Ears: bilateral: normal - Neck Carotids: bilateral: upstroke normal Thyroid: bilateral: normal size - Respiratory Respiratory: bilateral: CTA - Cardiovascular Rhythm: regular Heart sounds: normal: S1, S2 - Gastrointestinal General gastrointestinal: soft - Integumentary Integumentary: normal turgor - Neurologic Neurologic: CNII-XII intact - Musculoskeletal Musculoskeletal: gait normal, generalized weakness, strength equal bilaterally - Psychiatric Psychiatric: A&O x's 3, appropriate affect, intact judgment & insight - Labs CBC & Chem 7: 09/05/22 10:13 09/05/22 07:26 Labs: Abnormal Lab Results - Last 24 Hours (Table) 09/05/22 09/05/22 09/05/22 Range/Units 10:13 11:33 16:35 WBC 14.1 H (3.8-10.6) k/uL RBC 3.95 L (4.30-5.90) m/uL Hgb 12.4 L (13.0-17.5) gm/dL Hct 36.1 L (39.0-53.0) % POC Glucose (mg/dL) 157 H 341 H (70-110) mg/dL 09/05/22 09/06/22 Range/Units 20:06 05:58 WBC (3.8-10.6) k/uL RBC (4.30-5.90) m/uL Hgb (13.0-17.5) gm/dL Hct (39.0-53.0) % POC Glucose (mg/dL) 209 H 378 H (70-110) mg/dL Assessment and Plan Assessment: Chronic persistent mild asthma, continue bronchodilator along with inhaled corticosteroids Sleep disorder breathing and sleep apnea patient recommended to bring CPAP machine from home and start using it Uncontrolled diabetes and hyperglycemia, continue short and long-acting insulin Nausea vomiting advanced gastroparesis, continue prokinetic agent and entire reflex measures general surgery has been following Plan: As above Time with Patient: Greater than 30
--- NOTE | 2022-09-06 10:28 | P.PN ---
Subjective Progress Note Date: 09/06/22 History of present illness: This is a 36 year old male with history of DM type I presented with DKA and we have been asked to evaluate for tachycardia. Patient has been in sinus tachycardia up to 127 bpm. He continues to have significant vomiting despite use of Zofran and has been unable to maintain any oral medications. Yesterday, he was started on Lopressor 5 mg every 8 hours. Blood pressure is 166/87, heart rate 125 to 1:30 range. Blood sugar 200 Echocardiogram reveals EF of 55-60% with mild left ventricular hypertrophy, no mitral regurgitation, no pericardial effusion. 09/06 Patient is seen today in follow-up. He states that he is not vomiting but he is not taking oral medications. Blood pressures running 100-105. He is on IV Lopressor. Blood pressure 143/82 and patient is on Catapres patch. Blood sugars are running in the 200s to 300s. Physical examination: Gen: This is a 36-year-old ill-appearing male. Resting in bed with active vomiting VS: reviewed HEENT: Head is atraumatic, normocephalic. Pupils equal, round. Sclerae is anicteric. NECK: Supple. No JVD. . LUNGS: Clear to auscultation. No wheezes or rhonchi. No intercostal retractions. HEART: Regular rate and rhythm. No murmur. ABDOMEN: Soft EXTREMITIES: No pedal edema. No calf tenderness. NEUROLOGICAL: Patient is awake, alert. Assessment: Diabetic ketoacidosis Sinus tachycardia Plan: Medicine to continue management of DKA Continue IV Lopressor until patient is able to take oral medications Continue Catapres patch for blood pressure control until patient is able to take oral medications Further recommendations to follow based upon clinical course Nurse practitioner note has been reviewed, I agree with documented findings and plan of care. Patient was seen and examined. Objective - Vital Signs Vital signs: Vital Signs Temp 97.9 F 09/06/22 08:00 Pulse 105 H 09/06/22 08:00 Resp 18 09/06/22 08:00 BP 143/82 09/06/22 08:00 Pulse Ox 97 09/06/22 08:00 FiO2 100 09/03/22 22:54 Intake & Output 09/05/22 09/06/22 09/06/22 18:59 06:59 18:59 Intake Total 240 Output Total 625 Balance 240 -625 Weight 67.132 kg Intake: Oral 240 Output: Urine 625 Other: # Voids 2 2 - Labs CBC & Chem 7: 09/05/22 10:13 09/05/22 07:26 Labs: Abnormal Lab Results - Last 24 Hours (Table) 09/05/22 09/05/22 09/05/22 Range/Units 10:13 11:33 16:35 WBC 14.1 H (3.8-10.6) k/uL RBC 3.95 L (4.30-5.90) m/uL Hgb 12.4 L (13.0-17.5) gm/dL Hct 36.1 L (39.0-53.0) % POC Glucose (mg/dL) 157 H 341 H (70-110) mg/dL 09/05/22 09/06/22 Range/Units 20:06 05:58 WBC (3.8-10.6) k/uL RBC (4.30-5.90) m/uL Hgb (13.0-17.5) gm/dL Hct (39.0-53.0) % POC Glucose (mg/dL) 209 H 378 H (70-110) mg/dL
[2022-09-06 10:32] LABS: Basophils % (A) 0 %; Eosinophils % (A) 0 %; HCT 33.5 % (39.0-53.0); HGB 11.7 gm/dL (13.0-17.5); Lymphocytes # (A) 1.8 k/uL (1.0-4.8); Lymphocytes % (A) 22 %; MCH 31.7 pg (25.0-35.0); MCHC 34.8 g/dL (31.0-37.0); Mean Platelet Volume 7.9; Monocytes # (A) 0.4 k/uL (0-1.0); Monocytes % (A) 5 %; Neutrophils # (A) 5.6 k/uL (1.3-7.7); Neutrophils % (A) 71 %; Platelet Count 198 k/uL (150-450); RBC 3.69 m/uL (4.30-5.90); RDW 12.3 % (11.5-15.5); WBC 7.9 k/uL (3.8-10.6)
[2022-09-06 10:48] LABS: ALT 11 U/L (4-49); AST 13 U/L (17-59); African American GFR (CKD) >90 (>60 ml/min/1.73 sqM); Albumin 3.2 g/dL (3.5-5.0); Alkaline Phosphatase 94 U/L (38-126); Anion Gap 14 mmol/L; Blood Urea Nitrogen 14 mg/dL (9-20); Calcium 8.9 mg/dL (8.4-10.2); Carbon Dioxide 16 mmol/L (22-30); Chloride 106 mmol/L (98-107); Glucose 201 mg/dL (74-99); Non-African American GFR(CKD) >90 (>60 ml/min/1.73 sqM); Potassium 3.6 mmol/L (3.5-5.1); Sodium 136 mmol/L (137-145); Total Bilirubin 0.5 mg/dL (0.2-1.3); Total Protein 5.4 g/dL (6.3-8.2)
[2022-09-06 11:41] LABS: Glucose,Whole Blood 194 mg/dL (70-110)
--- NOTE | 2022-09-06 13:15 | P.PN ---
Subjective Progress Note Date: 09/06/22 CHIEF COMPLAINT: Nausea and vomiting HISTORY OF PRESENT ILLNESS: Patient admitted to hospital hospital for DKA. Patient reports he is feeling better today. His last episode of emesis was last night. He is having flatus. Denies any nausea. He reports his abdominal pain has improved. He is asking to eat. Abdominal x-ray shows no evidence of gastric distention. Afebrile. WBC 7.9 Hgb 11.7 platelets 198 sounds 136 potassium 3.6 creatinine 0.87 PHYSICAL EXAM: VITAL SIGNS: Reviewed. GENERAL: Well-developed in no acute distress. ABDOMEN: Soft. Nondistended. Nontender. NEUROLOGIC: Alert and oriented. Cranial nerves II through XII grossly intact. ASSESSMENT: 1. Nausea and vomiting and abdominal pain 2. Gastric distention consistent with gastroparesis. Gastric distention not visualized on follow up Xray 3. DKA 4. History of gastritis, esophagitis and hiatal hernia PLAN: -Advance diet to clear liquids -Continue supportive -Continue PPI and antiemetics Physician [employer] note has been reviewed by physician. Signing provider agrees with the documented findings, assessment, and plan of care. Objective - Vital Signs Vital signs: Vital Signs Temp 97.9 F 09/06/22 08:00 Pulse 105 H 09/06/22 08:00 Resp 18 09/06/22 08:00 BP 143/82 09/06/22 08:00 Pulse Ox 97 09/06/22 08:00 FiO2 100 09/03/22 22:54 Intake & Output 09/05/22 09/06/22 09/06/22 18:59 06:59 18:59 Intake Total 240 Output Total 625 Balance 240 -625 Weight 67.132 kg Intake: Oral 240 Output: Urine 625 Other: # Voids 2 2 - Labs CBC & Chem 7: 09/06/22 09:45 09/06/22 09:45 Labs: Abnormal Lab Results - Last 24 Hours (Table) 09/05/22 09/05/22 09/06/22 Range/Units 16:35 20:06 05:58 RBC (4.30-5.90) m/uL Hgb (13.0-17.5) gm/dL Hct (39.0-53.0) % Sodium (137-145) mmol/L Carbon Dioxide (22-30) mmol/L Glucose (74-99) mg/dL POC Glucose (mg/dL) 341 H 209 H 378 H (70-110) mg/dL AST (17-59) U/L Total Protein (6.3-8.2) g/dL Albumin (3.5-5.0) g/dL 09/06/22 09/06/22 09/06/22 Range/Units 09:45 09:45 11:39 RBC 3.69 L (4.30-5.90) m/uL Hgb 11.7 L (13.0-17.5) gm/dL Hct 33.5 L (39.0-53.0) % Sodium 136 L (137-145) mmol/L Carbon Dioxide 16 L (22-30) mmol/L Glucose 201 H (74-99) mg/dL POC Glucose (mg/dL) 194 H (70-110) mg/dL AST 13 L (17-59) U/L Total Protein 5.4 L (6.3-8.2) g/dL Albumin 3.2 L (3.5-5.0) g/dL
[2022-09-06 16:40] LABS: Glucose,Whole Blood 408 mg/dL (70-110)
[2022-09-06] MEDS: LURASIDONE 60 MG TAB PO SCH (16:54)
--- NOTE | 2022-09-06 19:33 | CDI ---
Documentation Clarification Form Date: 09/06/2022 07:26:57 PM From: Cynthia Bruce RN, CCDS Email: [email or web address] Admit Date: 09/03/2022 06:13:00 PM Patient Name: Tani Slater Visit Number: [id number] Discharge Date: ATTENTION: The Clinical Documentation Specialists (CDI) and [facility] Coding Staff appreciate your assistance in clarifying documentation. Please respond to the clarification below the line at the bottom and electronically sign. The CDI & [facility] Coding staff will review the response and follow-up if needed. Please note: Queries are made part of the Legal Health Record. If you have any questions, please contact the author of this message via ITS. Dr. Wisam Vickers Your patient has a sodium level of 132 and 134 on 09/03. Please clarify if there is an additional diagnosis and/or clinical significance related to this lab value. History/Risk Factors: Type I DM, glaucoma, gastroparesis, diabetic neuropathy, migraines. Admitted with N/V/D and DKA. Clinical indicators: ED: "hyponatremia." 09/03-09/06 Na: [phone] Treatment: 09/03 0.9 NS 1L IV bolus then 200ml/hr Is there an additional diagnosis and/or clinical significance related to the above lab result/information? [ ] Hyponatremia [ ] Abnormal Lab Value, not clinically significant [ ] Other condition, please specify [ ] Unable to determine MTDD
[2022-09-06] MEDS: MONTELUKAST 10 MG TAB PO SCH (19:55)
[2022-09-06] MEDS: QUEtiapine 25 MG TAB PO SCH (19:56)
[2022-09-06 20:29] LABS: Glucose,Whole Blood 269 mg/dL (70-110)
[2022-09-06] MEDS: ZOLPIDEM 5 MG TAB PO PRN (22:43)
[2022-09-06] MEDS: methocarbamoL 750 MG TAB PO PRN (23:53)
[2022-09-07] MEDS: ONDANSETRON 4 MG/2 ML VIAL IVP PRN ×4 (03:06→22:09)
[2022-09-07] MEDS: HYDROmorphone 0.5 MG/0.5 ML SYRINGE IVP PRN ×6 (03:07→22:10)
[2022-09-07] MEDS: D5-0.45% NACL WITH KCL 20MEQ/L 1,000 ML IV SCH ×2 (06:00→11:05)
[2022-09-07 06:13] LABS: Glucose,Whole Blood 274 mg/dL (70-110)
[2022-09-07] MEDS: LURASIDONE 40 MG TAB PO SCH (06:25)
[2022-09-07] MEDS: INSULIN ASPART (NovoLOG) 100 UNIT/ML VIAL SQ SCH ×4 (06:29→20:51)
--- NOTE | 2022-09-07 06:46 | PN ---
PROGRESS NOTE A 36-year-old white male with DKA, hypertension acceleration, esophagitis, nausea, vomiting, gastroparesis today his white count sodium 136, potassium 3.6 bipolar schizoaffective. He was given appropriate answers at this time. Vital signs are 100% on room air, blood pressure 140s to 150s over 80s to 100s, temp 97 to 98, pulse 96 to 105, respiratory rate 16 to 20. Cardiovascular S1, S2 gastroparesis, dehydration, sleep apnea, uncontrolled diabetes mellitus, COPD, nicotine addiction, schizoaffective versus schizophrenia. The CAT scan showed esophagitis with atrial fibrillation with RVR. Skin, mildly dry cardiovascular, S1 and S2. Lungs, scattered rhonchi, wheeze chronic persistent mild asthma, sleep apnea, uncontrolled diabetes mellitus, hyperglycemia, gastroparesis, insulin-dependent diabetes mellitus. Continue current treatment. He has stopped vomiting. His white count 14.1, his hemoglobin is 12.4. We will make sure esophagitis is treated appropriately, make sure he has no UTI urine cultures so far show negative growth. Prognosis guarded. Please see further orders. Wait for surgical consult for esophagitis. MMODL / IJN: [id number] /
[2022-09-07 08:24] LABS: Basophils % (A) 0 %; Eosinophils % (A) 0 %; HCT 36.8 % (39.0-53.0); HGB 12.4 gm/dL (13.0-17.5); Lymphocytes # (A) 1.8 k/uL (1.0-4.8); Lymphocytes % (A) 23 %; MCH 31.1 pg (25.0-35.0); MCHC 33.8 g/dL (31.0-37.0); MCV 91.9 fL (80.0-100.0); Mean Platelet Volume 7.9; Monocytes # (A) 0.4 k/uL (0-1.0); Monocytes % (A) 5 %; Neutrophils # (A) 5.3 k/uL (1.3-7.7); Neutrophils % (A) 70 %; Platelet Count 216 k/uL (150-450); RDW 12.3 % (11.5-15.5); WBC 7.6 k/uL (3.8-10.6)
[2022-09-07 08:55] LABS: ALT 12 U/L (4-49); AST 14 U/L (17-59); African American GFR (CKD) >90 (>60 ml/min/1.73 sqM); Albumin 3.3 g/dL (3.5-5.0); Alkaline Phosphatase 90 U/L (38-126); Anion Gap 18 mmol/L; Blood Urea Nitrogen 13 mg/dL (9-20); Calcium 8.8 mg/dL (8.4-10.2); Carbon Dioxide 11 mmol/L (22-30); Chloride 104 mmol/L (98-107); Glucose 253 mg/dL (74-99); Non-African American GFR(CKD) >90 (>60 ml/min/1.73 sqM); Potassium 3.5 mmol/L (3.5-5.1); Sodium 133 mmol/L (137-145); Total Bilirubin 0.5 mg/dL (0.2-1.3); Total Protein 5.8 g/dL (6.3-8.2)
[2022-09-07] MEDS: IPRATROPIUM-ALBUTEROL 3 ML NEB INHALATION SCH ×4 (08:56→22:22)
[2022-09-07] MEDS: BUDESONIDE 0.5 MG/2 ML NEBU INHALATION SCH ×2 (08:56→22:22)
[2022-09-07] MEDS: PANTOPRAZOLE 40 MG/10 ML VIAL IVP SCH ×2 (09:34→20:52)
[2022-09-07] MEDS: lisinopriL 20 MG TAB PO SCH (09:35)
[2022-09-07] MEDS: amLODIPine 5 MG TAB PO SCH (09:35)
[2022-09-07] MEDS: METOPROLOL TARTRATE 5 MG/5 ML VIAL IVP SCH ×2 (09:35→16:54)
[2022-09-07] MEDS: METOPROLOL TARTRATE 50 MG TAB PO SCH ×2 (09:35→20:36)
[2022-09-07] MEDS: QUEtiapine 50 MG TAB PO SCH ×2 (09:35→20:37)
--- NOTE | 2022-09-07 09:51 | P.PN ---
Subjective Progress Note Date: 09/07/22 History of present illness: This is a 36 year old male with history of DM type I presented with DKA and we have been asked to evaluate for tachycardia. Patient has been in sinus tachycardia up to 127 bpm. He continues to have significant vomiting despite use of Zofran and has been unable to maintain any oral medications. Yesterday, he was started on Lopressor 5 mg every 8 hours. Blood pressure is 166/87, heart rate 125 to 1:30 range. Blood sugar 200 Echocardiogram reveals EF of 55-60% with mild left ventricular hypertrophy, no mitral regurgitation, no pericardial effusion. 09/06 Patient is seen today in follow-up. He states that he is not vomiting but he is not taking oral medications. Blood pressures running 100-105. He is on IV Lopressor. Blood pressure 143/82 and patient is on Catapres patch. Blood sugars are running in the 200s to 300s. 09/07 Patient remains mildly tachycardia to 90 to low 100s, blood pressure 145/80. Patient is not taking his oral medications as yesterday he was refusing them. It appears he had some emesis that is noted in the pad at the bedside. Patient encouraged to take oral medications to address his blood pressure and heart rate. Sodium 133, potassium 3.5, BUN 13 creatinine 0.86. Blood sugars of been anywhere from 253-408. Physical examination: Gen: This is a 36-year-old ill-appearing male. Resting in bed with active vomiting VS: reviewed HEENT: Head is atraumatic, normocephalic. Pupils equal, round. Sclerae is anicteric. NECK: Supple. No JVD. . LUNGS: Clear to auscultation. No wheezes or rhonchi. No intercostal retractions. HEART: Regular rate and rhythm. No murmur. ABDOMEN: Soft EXTREMITIES: No pedal edema. No calf tenderness. NEUROLOGICAL: Patient is awake, alert. Assessment: Diabetic ketoacidosis Sinus tachycardia Plan: Medicine to continue management of DKA Continue IV Lopressor until patient is able to take oral medications Continue Catapres patch for blood pressure control until patient is able to take oral medications Resume patient's home cardiac medications once his able to/willing to take oral medications. Patient has been encouraged to take his medications to address the blood pressure and heart rate. Further recommendations to follow based upon clinical course Nurse practitioner note has been reviewed, I agree with documented findings and plan of care. Patient was seen and examined. Objective - Vital Signs Vital signs: Vital Signs Temp 98.2 F 09/07/22 08:04 Pulse 96 09/07/22 08:04 Resp 15 09/07/22 08:04 BP 145/80 09/07/22 08:04 Pulse Ox 98 09/07/22 08:04 FiO2 100 09/03/22 22:54 Intake & Output 09/06/22 09/07/22 09/07/22 18:59 06:59 18:59 Intake Total 240 Output Total 600 1400 Balance -600 -1400 240 Intake: Oral 240 Output: Urine 600 1400 Other: # Voids 1 - Labs CBC & Chem 7: 09/07/22 07:47 09/07/22 07:47 Labs: Abnormal Lab Results - Last 24 Hours (Table) 09/06/22 09/06/22 09/06/22 Range/Units 09:45 09:45 11:39 RBC 3.69 L (4.30-5.90) m/uL Hgb 11.7 L (13.0-17.5) gm/dL Hct 33.5 L (39.0-53.0) % Sodium 136 L (137-145) mmol/L Carbon Dioxide 16 L (22-30) mmol/L Glucose 201 H (74-99) mg/dL POC Glucose (mg/dL) 194 H (70-110) mg/dL AST 13 L (17-59) U/L Total Protein 5.4 L (6.3-8.2) g/dL Albumin 3.2 L (3.5-5.0) g/dL 09/06/22 09/06/22 09/07/22 Range/Units 16:39 20:28 06:11 RBC (4.30-5.90) m/uL Hgb (13.0-17.5) gm/dL Hct (39.0-53.0) % Sodium (137-145) mmol/L Carbon Dioxide (22-30) mmol/L Glucose (74-99) mg/dL POC Glucose (mg/dL) 408 H 269 H 274 H (70-110) mg/dL AST (17-59) U/L Total Protein (6.3-8.2) g/dL Albumin (3.5-5.0) g/dL 09/07/22 09/07/22 Range/Units 07:47 07:47 RBC 4.00 L (4.30-5.90) m/uL Hgb 12.4 L (13.0-17.5) gm/dL Hct 36.8 L (39.0-53.0) % Sodium 133 L (137-145) mmol/L Carbon Dioxide 11 L (22-30) mmol/L Glucose 253 H (74-99) mg/dL POC Glucose (mg/dL) (70-110) mg/dL AST 14 L (17-59) U/L Total Protein 5.8 L (6.3-8.2) g/dL Albumin 3.3 L (3.5-5.0) g/dL Microbiology - Last 24 Hours (Table) 09/05/22 04:30 Urine Culture - Final Urine,Voided
[2022-09-07] MEDS: ATROPINE OPHTH SOLN 1% 5ML BTL LEFT EYE SCH ×2 (10:00→20:35)
[2022-09-07] MEDS: NYSTATIN 100,000 UNIT/ML SUSP 500,000 UNIT/5 ML CUP PO SCH ×3 (10:00→17:22)
[2022-09-07] MEDS: prednisoLONE ACETATE 1% OPHTH DROPS 5 ML BTL RIGHT EYE SCH ×2 (10:00→20:36)
[2022-09-07] MEDS: ATORVASTATIN 10 MG TAB PO SCH (10:00)
[2022-09-07] MEDS: TRIHEXYPHENIDYL 2 MG TAB PO SCH ×2 (10:01→20:37)
[2022-09-07 11:39] LABS: Glucose,Whole Blood 288 mg/dL (70-110)
--- NOTE | 2022-09-07 12:52 | P.PN ---
Subjective Progress Note Date: 09/07/22 CHIEF COMPLAINT: Nausea and vomiting HISTORY OF PRESENT ILLNESS: Patient admitted to hospital hospital for DKA. Patient does complain of abdominal pain. Denies any further nausea and vomiting. Afebrile. WBC 7.6 hgb 12.4 PHYSICAL EXAM: VITAL SIGNS: Reviewed. GENERAL: Well-developed in no acute distress. ABDOMEN: Soft. Nondistended. NEUROLOGIC: Alert and oriented. Cranial nerves II through XII grossly intact. ASSESSMENT: 1. Nausea and vomiting and abdominal pain 2. Gastric distention consistent with gastroparesis. Gastric distention not visualized on follow up Xray 3. DKA 4. History of gastritis, esophagitis and hiatal hernia PLAN: -Continue clear liquids -Continue supportive -Continue PPI and antiemetics Physician Briefcase [employer]er note has been reviewed by physician. Signing provider agrees with the documented findings, assessment, and plan of care. Objective - Vital Signs Vital signs: Vital Signs Temp 98.2 F 09/07/22 08:04 Pulse 93 09/07/22 11:07 Resp 18 09/07/22 11:07 BP 124/77 09/07/22 11:07 Pulse Ox 97 09/07/22 11:07 FiO2 100 09/03/22 22:54 Intake & Output 09/06/22 09/07/22 09/07/22 18:59 06:59 18:59 Intake Total 240 Output Total 600 1400 600 Balance -600 -1400 -360 Intake: Oral 240 Output: Urine 600 1400 600 Other: Voiding Method Toilet Urinal # Voids 1 1 - Labs CBC & Chem 7: 09/07/22 07:47 09/07/22 07:47 Labs: Abnormal Lab Results - Last 24 Hours (Table) 09/06/22 09/06/22 09/07/22 Range/Units 16:39 20:28 06:11 RBC (4.30-5.90) m/uL Hgb (13.0-17.5) gm/dL Hct (39.0-53.0) % Sodium (137-145) mmol/L Carbon Dioxide (22-30) mmol/L Glucose (74-99) mg/dL POC Glucose (mg/dL) 408 H 269 H 274 H (70-110) mg/dL AST (17-59) U/L Total Protein (6.3-8.2) g/dL Albumin (3.5-5.0) g/dL 09/07/22 09/07/22 09/07/22 Range/Units 07:47 07:47 11:37 RBC 4.00 L (4.30-5.90) m/uL Hgb 12.4 L (13.0-17.5) gm/dL Hct 36.8 L (39.0-53.0) % Sodium 133 L (137-145) mmol/L Carbon Dioxide 11 L (22-30) mmol/L Glucose 253 H (74-99) mg/dL POC Glucose (mg/dL) 288 H (70-110) mg/dL AST 14 L (17-59) U/L Total Protein 5.8 L (6.3-8.2) g/dL Albumin 3.3 L (3.5-5.0) g/dL Microbiology - Last 24 Hours (Table) 09/05/22 04:30 Urine Culture - Final Urine,Voided
[2022-09-07 16:49] LABS: Glucose,Whole Blood 270 mg/dL (70-110)
[2022-09-07] MEDS: LURASIDONE 60 MG TAB PO SCH (16:55)
[2022-09-07 20:17] LABS: Glucose,Whole Blood 222 mg/dL (70-110)
[2022-09-07] MEDS: MONTELUKAST 10 MG TAB PO SCH (20:36)
[2022-09-07] MEDS: QUEtiapine 25 MG TAB PO SCH (20:36)
[2022-09-08] MEDS: METOPROLOL TARTRATE 5 MG/5 ML VIAL IVP SCH ×3 (00:10→15:31)
[2022-09-08] MEDS: ZOLPIDEM 5 MG TAB PO PRN (00:11)
[2022-09-08] MEDS: methocarbamoL 750 MG TAB PO PRN (01:55)
[2022-09-08] MEDS: HYDROmorphone 0.5 MG/0.5 ML SYRINGE IVP PRN ×6 (01:55→23:17)
[2022-09-08] MEDS: D5-0.45% NACL WITH KCL 20MEQ/L 1,000 ML IV SCH ×2 (01:57→21:27)
[2022-09-08 05:58] LABS: Glucose,Whole Blood 382 mg/dL (70-110)
[2022-09-08] MEDS: INSULIN ASPART (NovoLOG) 100 UNIT/ML VIAL SQ SCH ×4 (06:00→20:44)
[2022-09-08] MEDS: ONDANSETRON 4 MG/2 ML VIAL IVP PRN ×3 (06:01→18:56)
[2022-09-08] MEDS: LURASIDONE 40 MG TAB PO SCH (06:53)
[2022-09-08] MEDS: BUDESONIDE 0.5 MG/2 ML NEBU INHALATION SCH ×2 (08:30→20:34)
[2022-09-08] MEDS: IPRATROPIUM-ALBUTEROL 3 ML NEB INHALATION SCH ×4 (08:30→20:34)
[2022-09-08] MEDS: METOPROLOL TARTRATE 50 MG TAB PO SCH ×2 (08:51→20:45)
[2022-09-08] MEDS: PANTOPRAZOLE 40 MG/10 ML VIAL IVP SCH ×2 (08:51→20:44)
[2022-09-08] MEDS: ATROPINE OPHTH SOLN 1% 5ML BTL LEFT EYE SCH ×2 (08:52→20:46)
[2022-09-08] MEDS: lisinopriL 20 MG TAB PO SCH (08:52)
[2022-09-08] MEDS: QUEtiapine 50 MG TAB PO SCH ×2 (08:52→20:45)
[2022-09-08] MEDS: ATORVASTATIN 10 MG TAB PO SCH (08:52)
[2022-09-08] MEDS: TRIHEXYPHENIDYL 2 MG TAB PO SCH ×2 (08:52→20:46)
--- NOTE | 2022-09-08 09:43 | P.PN ---
Subjective Progress Note Date: 09/08/22 Principal diagnosis: Chronic persistent mild asthma, continue bronchodilator along with inhaled corticosteroids Sleep disorder breathing and sleep apnea patient recommended to bring CPAP machine from home and start using it Uncontrolled diabetes and hyperglycemia, continue short and long-acting insulin Nausea vomiting advanced gastroparesis, continue prokinetic agent and entire reflex measures general surgery has been following 09/08/2022, patient seen eval examined the rounds of medications reviewed shortness of breath overall stable has been on bronchodilators by nebulization as well as inhaled corticosteroids respiratory status continued to improved however is still have intermittent issues with nausea and vomiting. Hemodynamic status stable, except intermittent tachycardia saturation is 95% room air, blood sugar is 322 patient remains on long and short acting insulin, patient remains on high intensity status is as well as well as anti-seizure medication 09/06/2022, patient seen eval examined during the rounds labs reviewed medications reviewed care plan discussed, respiratory status improved, denies any chest pain, patient has been advised to get CPAP machine from home and use it at nighttime however due to ongoing nausea and emesis reluctant to use it which is understandable, tachycardia significantly improved heart rate is ranging 500-105, patient is afebrile hemodynamic status stable oxygen saturation 97% 36-year-old male with the severe type 1 diabetes mellitus with associated complication presented into the hospital with uncontrolled hyperglycemia also has been episode of nausea vomiting and generalized aches and pains he is well- known to me for issues associated with chronic persistent asthma of moderate category has been on inhaled bronchodilator with inhaled corticosteroids and sleep disorder breathing and sleep apnea recently started on CPAP machine that his symptoms of progressive and last for and family decided to bring him in further evaluation patient has a history of other active medical problems including dyslipidemia hypertension hypertensive cardiovascular disease, hyperlipidemia, severe advanced diabetic gastroparesis. Patient due on sludge and noted to have an episode of tachycardia heart rate was 120 to 1:30 blood pressure slightly high and his ejection fraction is 55-60% with LVH, patient underwent computed tomography scan of the chest abdominal and pelvis, no abnormal infiltrate identified, patient noted to have thickening of esophageal wall likely esophagitis, general surgery is following him a patient was evaluated by cardiovascular services recommended Lopressor with that heart rate is better under control Objective - Vital Signs Vital signs: Vital Signs Temp 98.1 F 09/08/22 08:45 Pulse 110 H 09/08/22 08:45 Resp 16 09/08/22 08:45 BP 135/89 09/08/22 08:45 Pulse Ox 95 09/08/22 08:45 FiO2 100 09/03/22 22:54 Intake & Output 09/07/22 09/08/22 09/08/22 18:59 06:59 18:59 Intake Total 957 237 Output Total 1100 1200 0 Balance -143 -1200 237 Intake: Oral 957 237 Output: Urine 1100 1200 0 Other: Voiding Method Toilet Toilet Urinal Urinal # Voids 1 - Exam - Constitutional General appearance: average body habitus, cooperative, disheveled - EENT Eyes: EOMI, PERRLA Ears: bilateral: normal - Neck Carotids: bilateral: upstroke normal Thyroid: bilateral: normal size - Respiratory Respiratory: bilateral: CTA - Cardiovascular Rhythm: regular Heart sounds: normal: S1, S2 - Gastrointestinal General gastrointestinal: soft - Integumentary Integumentary: normal turgor - Neurologic Neurologic: CNII-XII intact - Musculoskeletal Musculoskeletal: gait normal, generalized weakness, strength equal bilaterally - Psychiatric Psychiatric: A&O x's 3, appropriate affect, intact judgment & insight - Labs CBC & Chem 7: 09/07/22 07:47 09/07/22 07:47 Labs: Abnormal Lab Results - Last 24 Hours (Table) 09/07/22 09/07/22 09/07/22 Range/Units 11:37 16:47 20:15 POC Glucose (mg/dL) 288 H 270 H 222 H (70-110) mg/dL 09/08/22 Range/Units 05:56 POC Glucose (mg/dL) 382 H (70-110) mg/dL Assessment and Plan Assessment: Chronic persistent mild asthma, continue bronchodilator along with inhaled Add aerosolized corticosteroids, observe off of IV steroids Sleep disorder breathing and sleep apnea patient recommended to bring CPAP machine from home and start using it Uncontrolled diabetes and hyperglycemia, continue short and long-acting insulin Nausea vomiting advanced gastroparesis, continue prokinetic agent and entire r eflex measures general surgery has been following Diabetic ketoacidosis resolved Plan: As above Time with Patient: Greater than 30
[2022-09-08] MEDS: prednisoLONE ACETATE 1% OPHTH DROPS 5 ML BTL RIGHT EYE SCH ×2 (09:58→20:46)
[2022-09-08] MEDS: amLODIPine 5 MG TAB PO SCH (09:58)
[2022-09-08 12:00] LABS: Glucose,Whole Blood 221 mg/dL (70-110)
--- NOTE | 2022-09-08 12:16 | P.PN ---
Subjective Progress Note Date: 09/08/22 History of present illness: This is a 36 year old male with history of DM type I presented with DKA and we have been asked to evaluate for tachycardia. Patient has been in sinus tachycardia up to 127 bpm. He continues to have significant vomiting despite use of Zofran and has been unable to maintain any oral medications. Yesterday, he was started on Lopressor 5 mg every 8 hours. Blood pressure is 166/87, heart rate 125 to 1:30 range. Blood sugar 200 Echocardiogram reveals EF of 55-60% with mild left ventricular hypertrophy, no mitral regurgitation, no pericardial effusion. 09/06 Patient is seen today in follow-up. He states that he is not vomiting but he is not taking oral medications. Blood pressures running 100-105. He is on IV Lopressor. Blood pressure 143/82 and patient is on Catapres patch. Blood sugars are running in the 200s to 300s. 09/07 Patient remains mildly tachycardia to 90 to low 100s, blood pressure 145/80. Patient is not taking his oral medications as yesterday he was refusing them. It appears he had some emesis that is noted in the pad at the bedside. Patient encouraged to take oral medications to address his blood pressure and heart rate. Sodium 133, potassium 3.5, BUN 13 creatinine 0.86. Blood sugars of been anywhere from 253-408. 09/08 Patient has started taking some of the oral medications including the metoprolol. Heart rate is now running in the 90s to 110. He is in a sinus rhythm. Physical examination: Gen: This is a 36-year-old ill-appearing male. VS: reviewed HEENT: Head is atraumatic, normocephalic. Pupils equal, round. Sclerae is anicteric. LUNGS: Clear to auscultation. No wheezes or rhonchi. No intercostal retractions. HEART: Regular rate and rhythm. No murmur. EXTREMITIES: No pedal edema. No calf tenderness. NEUROLOGICAL: Patient is awake, alert. Assessment: Diabetic ketoacidosis Sinus tachycardia Plan: Medicine to continue management of DKA Continue IV Lopressor until patient is able to take oral medications, continue Lopressor 50 mg twice daily Continue Catapres patch for blood pressure control until patient is able to take all oral medications Resume patient's home cardiac medications once his able to/willing to take oral medications. Patient has been encouraged to take his medications to address the blood pressure and heart rate. Further recommendations to follow based upon clinical course Nurse practitioner note has been reviewed, I agree with documented findings and plan of care. Patient was seen and examined. Objective - Vital Signs Vital signs: Vital Signs Temp 98.1 F 09/08/22 08:45 Pulse 110 H 09/08/22 08:45 Resp 16 09/08/22 08:45 BP 135/89 09/08/22 08:45 Pulse Ox 95 09/08/22 08:45 FiO2 100 09/03/22 22:54 Intake & Output 09/07/22 09/08/22 09/08/22 18:59 06:59 18:59 Intake Total 957 237 Output Total 1100 1200 0 Balance -143 -1200 237 Weight 67.132 kg Intake: Oral 957 237 Output: Urine 1100 1200 0 Other: Voiding Method Toilet Toilet Urinal Urinal # Voids 1 - Labs CBC & Chem 7: 09/07/22 07:47 09/07/22 07:47 Labs: Abnormal Lab Results - Last 24 Hours (Table) 09/07/22 09/07/22 09/07/22 Range/Units 11:37 16:47 20:15 POC Glucose (mg/dL) 288 H 270 H 222 H (70-110) mg/dL 09/08/22 Range/Units 05:56 POC Glucose (mg/dL) 382 H (70-110) mg/dL
--- NOTE | 2022-09-08 13:13 | P.PN ---
Subjective Progress Note Date: 09/06/22 Principal diagnosis: Leukocytosis Patient is a 36-year-old male with a past medical history significant for insulin-dependent diabetes mellitus and diabetic gastroparesis and diabetic neuropathy did have a history of diabetic foot infection in addition to anxiety bipolar depression patient was brought into the hospital as the patient was noticed to have elevated blood sugar patient has been feeling nauseated and vomiting and complaining of generalized body aches patient has been diagnosed with DKA and is being treated appropriately patient did have a CT of the chest abdominal pelvis with no acute finding except thickened esophagus and the patient was noticed to have elevated white count probably this infectious disease consultation. On today's evaluation that is 09/06/2022 patient remains to be afebrile, the patient is breathing comfortably on room air denies any chest pain or shortness of breath or cough has become and some abdominal discomfort and nausea no further vomiting has been reported and no diarrhea Objective - Vital Signs Vital signs: Vital Signs Temp 97.9 F 09/06/22 08:00 Pulse 105 H 09/06/22 08:00 Resp 18 09/06/22 08:00 BP 143/82 09/06/22 08:00 Pulse Ox 97 09/06/22 08:00 FiO2 100 09/03/22 22:54 Intake & Output 09/05/22 09/06/22 09/06/22 18:59 06:59 18:59 Intake Total 240 Output Total 625 Balance 240 -625 Weight 67.132 kg Intake: Oral 240 Output: Urine 625 Other: # Voids 2 2 - Exam GENERAL DESCRIPTION: Middle-aged male lying in bed in no distress RESPIRATORY SYSTEM: Unlabored breathing , decreased breath sounds at bases HEART: S1 S2 regular rate and rhythm , ABDOMEN: Soft , no tenderness EXTREMITIES: No edema feet - Labs CBC & Chem 7: 09/07/22 07:47 09/07/22 07:47 Labs: Abnormal Lab Results - Last 24 Hours (Table) 09/05/22 09/05/22 09/06/22 Range/Units 16:35 20:06 05:58 RBC (4.30-5.90) m/uL Hgb (13.0-17.5) gm/dL Hct (39.0-53.0) % Sodium (137-145) mmol/L Carbon Dioxide (22-30) mmol/L Glucose (74-99) mg/dL POC Glucose (mg/dL) 341 H 209 H 378 H (70-110) mg/dL AST (17-59) U/L Total Protein (6.3-8.2) g/dL Albumin (3.5-5.0) g/dL 09/06/22 09/06/22 09/06/22 Range/Units 09:45 09:45 11:39 RBC 3.69 L (4.30-5.90) m/uL Hgb 11.7 L (13.0-17.5) gm/dL Hct 33.5 L (39.0-53.0) % Sodium 136 L (137-145) mmol/L Carbon Dioxide 16 L (22-30) mmol/L Glucose 201 H (74-99) mg/dL POC Glucose (mg/dL) 194 H (70-110) mg/dL AST 13 L (17-59) U/L Total Protein 5.4 L (6.3-8.2) g/dL Albumin 3.2 L (3.5-5.0) g/dL Assessment and Plan (1) Esophagitis Current Visit: No Status: Acute Code(s): K20.90 - ESOPHAGITIS, UNSPECIFIED WITHOUT BLEEDING SNOMED Code(s): 39881006 (2) Leukocytosis Current Visit: No Status: Acute Code(s): D72.829 - ELEVATED WHITE BLOOD CELL COUNT, UNSPECIFIED SNOMED Code(s): 809124598 Plan: 1patient with elevated white count in this patient presented to hospital with elevated blood sugar and did have a positive serum acetone more likely related to DKA from hemoconcentration as the patient not running any fever does not look toxic patient did have his CT of the chest abdominal pelvis did not show any acute normality except some thickening of the esophagus with a question of esophagitis. Patient did have a negative UA and evidence of pneumonia on the CT of the chest no evidence of any open wound cellulitis or joint swelling 2-the patient white count is more likely to DKA and the patient white count has normalized this morning without any antibiotic therapy 3there was a question of esophagitis possible fungal, cannot add Diflucan because of the drug interaction with his other medication we will continue with nystatin swish and swallow and see clinical response Dictation was produced using [employer] software. please excuse any grammatical, word or spelling errors. Time with Patient: Less than 30
--- NOTE | 2022-09-08 13:15 | P.PN ---
Subjective Progress Note Date: 09/07/22 Principal diagnosis: Leukocytosis Patient is a 36-year-old male with a past medical history significant for insulin-dependent diabetes mellitus and diabetic gastroparesis and diabetic neuropathy did have a history of diabetic foot infection in addition to anxiety bipolar depression patient was brought into the hospital as the patient was noticed to have elevated blood sugar patient has been feeling nauseated and vomiting and complaining of generalized body aches patient has been diagnosed with DKA and is being treated appropriately patient did have a CT of the chest abdominal pelvis with no acute finding except thickened esophagus and the patient was noticed to have elevated white count probably this infectious disease consultation. On today's evaluation that is 09/07/2022 patient continues to be afebrile, the patient is breathing comfortably on room air, the patient denies any chest pain or shortness of breath or cough has become and some abdominal discomfort and nausea no further vomiting has been reported and no diarrhea Patient did have a white count of 7.6 with no left shift, creatinine 0.86, UA negative urine culture negative Objective - Vital Signs Vital signs: Vital Signs Temp 98.2 F 09/07/22 08:04 Pulse 93 09/07/22 11:07 Resp 18 09/07/22 11:07 BP 124/77 09/07/22 11:07 Pulse Ox 97 09/07/22 11:07 FiO2 100 09/03/22 22:54 Intake & Output 09/06/22 09/07/22 09/07/22 18:59 06:59 18:59 Intake Total 240 Output Total 600 1400 600 Balance -600 -1400 -360 Intake: Oral 240 Output: Urine 600 1400 600 Other: Voiding Method Toilet Urinal # Voids 1 1 - Exam GENERAL DESCRIPTION: Middle-aged male lying in bed in no distress RESPIRATORY SYSTEM: Unlabored breathing , decreased breath sounds at bases HEART: S1 S2 regular rate and rhythm , ABDOMEN: Soft , no tenderness EXTREMITIES: No edema feet - Labs CBC & Chem 7: 09/07/22 07:47 09/07/22 07:47 Labs: Abnormal Lab Results - Last 24 Hours (Table) 09/06/22 09/06/22 09/07/22 Range/Units 16:39 20:28 06:11 RBC (4.30-5.90) m/uL Hgb (13.0-17.5) gm/dL Hct (39.0-53.0) % Sodium (137-145) mmol/L Carbon Dioxide (22-30) mmol/L Glucose (74-99) mg/dL POC Glucose (mg/dL) 408 H 269 H 274 H (70-110) mg/dL AST (17-59) U/L Total Protein (6.3-8.2) g/dL Albumin (3.5-5.0) g/dL 09/07/22 09/07/22 09/07/22 Range/Units 07:47 07:47 11:37 RBC 4.00 L (4.30-5.90) m/uL Hgb 12.4 L (13.0-17.5) gm/dL Hct 36.8 L (39.0-53.0) % Sodium 133 L (137-145) mmol/L Carbon Dioxide 11 L (22-30) mmol/L Glucose 253 H (74-99) mg/dL POC Glucose (mg/dL) 288 H (70-110) mg/dL AST 14 L (17-59) U/L Total Protein 5.8 L (6.3-8.2) g/dL Albumin 3.3 L (3.5-5.0) g/dL Microbiology - Last 24 Hours (Table) 09/05/22 04:30 Urine Culture - Final Urine,Voided Assessment and Plan (1) Esophagitis Current Visit: No Status: Acute Code(s): K20.90 - ESOPHAGITIS, UNSPECIFIED WITHOUT BLEEDING SNOMED Code(s): 45284796 (2) Leukocytosis Current Visit: No Status: Acute Code(s): D72.829 - ELEVATED WHITE BLOOD CELL COUNT, UNSPECIFIED SNOMED Code(s): 276248793 Plan: 1patient with elevated white count in this patient presented to hospital with elevated blood sugar and did have a positive serum acetone more likely related to DKA from hemoconcentration as the patient not running any fever does not look toxic patient did have his CT of the chest abdominal pelvis did not show any acute normality except some thickening of the esophagus with a question of esophagitis. Patient did have a negative UA and evidence of pneumonia on the CT of the chest no evidence of any open wound cellulitis or joint swelling 2-the patient white count is more likely to DKA and the patient white count has normalized without any antibiotic therapy, hence we'll monitor the patient closely off antibiotic 3there was a question of esophagitis possible fungal or related to this episodes of vomiting, cannot add Diflucan because of the drug interaction with his other medication and the patient is refusing nystatin swish and swallow, we will monitor the patient closely off antibiotic and antifungal therapy Dictation was produced using [employer] dictation software. please excuse any grammatical, word or spelling errors. Time with Patient: Less than 30
--- NOTE | 2022-09-08 13:17 | P.PN ---
Subjective Progress Note Date: 09/08/22 Principal diagnosis: Leukocytosis Patient is a 36-year-old male with a past medical history significant for insulin-dependent diabetes mellitus and diabetic gastroparesis and diabetic neuropathy did have a history of diabetic foot infection in addition to anxiety bipolar depression patient was brought into the hospital as the patient was noticed to have elevated blood sugar patient has been feeling nauseated and vomiting and complaining of generalized body aches patient has been diagnosed with DKA and is being treated appropriately patient did have a CT of the chest abdominal pelvis with no acute finding except thickened esophagus and the patient was noticed to have elevated white count probably this infectious disease consultation. On today's evaluation that is 09/08/2022 patient denies any fever or any chills, the patient is breathing comfortably on room air, the patient denies any chest pain or shortness of breath or cough , the patient denies any further nausea vomiting some vague abdominal pain and no diarrhea has been reported Patient did have a white count of 7.6 with no left shift, creatinine 0.86 as of yesterday no blood draw today, UA negative urine culture negative Objective - Vital Signs Vital signs: Vital Signs Temp 98.1 F 09/08/22 08:45 Pulse 94 09/08/22 12:55 Resp 16 09/08/22 12:55 BP 125/77 09/08/22 12:55 Pulse Ox 99 09/08/22 12:55 FiO2 100 09/03/22 22:54 Intake & Output 09/07/22 09/08/22 09/08/22 18:59 06:59 18:59 Intake Total 957 237 Output Total 1100 1200 0 Balance -143 -1200 237 Weight 67.132 kg Intake: Oral 957 237 Output: Urine 1100 1200 0 Other: Voiding Method Toilet Toilet Urinal Urinal # Voids 1 - Exam GENERAL DESCRIPTION: Middle-aged male lying in bed in no distress RESPIRATORY SYSTEM: Unlabored breathing , decreased breath sounds at bases HEART: S1 S2 regular rate and rhythm , ABDOMEN: Soft , no tenderness EXTREMITIES: No edema feet - Labs CBC & Chem 7: 09/07/22 07:47 09/07/22 07:47 Labs: Abnormal Lab Results - Last 24 Hours (Table) 09/07/22 09/07/22 09/08/22 Range/Units 16:47 20:15 05:56 POC Glucose (mg/dL) 270 H 222 H 382 H (70-110) mg/dL 09/08/22 Range/Units 11:59 POC Glucose (mg/dL) 221 H (70-110) mg/dL Assessment and Plan (1) Esophagitis Current Visit: No Status: Acute Code(s): K20.90 - ESOPHAGITIS, UNSPECIFIED WITHOUT BLEEDING SNOMED Code(s): 29638910 (2) Leukocytosis Current Visit: No Status: Acute Code(s): D72.829 - ELEVATED WHITE BLOOD CELL COUNT, UNSPECIFIED SNOMED Code(s): 660313501 Plan: 1patient with elevated white count in this patient presented to hospital with elevated blood sugar and did have a positive serum acetone more likely related to DKA from hemoconcentration as the patient not running any fever does not look toxic patient did have his CT of the chest abdominal pelvis did not show any acute normality except some thickening of the esophagus with a question of esophagitis. Patient did have a negative UA and evidence of pneumonia on the CT of the chest no evidence of any open wound cellulitis or joint swelling 2-the patient white count is more likely to DKA and the patient white count has normalized without any antibiotic therapy, hence we'll monitor the patient closely off antibiotic 3there was a question of esophagitis possible related to this episodes of vomiting and reflux clinically not behaving as fungal, cannot add Diflucan because of the drug interaction and the patient is refusing nystatin swish and swallow, we will monitor the patient closely off antibiotic and antifungal therapy Dictation was produced using [employer] dictation software. please excuse any gramm atical, word or spelling errors. Time with Patient: Less than 30
--- NOTE | 2022-09-08 13:46 | P.PN ---
Subjective Progress Note Date: 09/08/22 Principal diagnosis: Gastroparesis Patient doing better today. Says his pain is slightly improved. Still nauseated. No vomiting. No bowel movement. He is passing flatus. He has no appetite. He wants to stay on a liquid diet. Objective - Vital Signs Vital signs: Vital Signs Temp 98.1 F 09/08/22 08:45 Pulse 94 09/08/22 12:55 Resp 16 09/08/22 12:55 BP 125/77 09/08/22 12:55 Pulse Ox 99 09/08/22 12:55 FiO2 100 09/03/22 22:54 Intake & Output 09/07/22 09/08/22 09/08/22 18:59 06:59 18:59 Intake Total 957 657 Output Total 1100 1200 0 Balance -143 -1200 657 Weight 67.132 kg Intake: Oral 957 657 Output: Urine 1100 1200 0 Other: Voiding Method Toilet Toilet Urinal Urinal # Voids 1 - Exam Abdomen soft, nondistended, minimal abdominal tenderness - Labs CBC & Chem 7: 09/07/22 07:47 09/07/22 07:47 Labs: Abnormal Lab Results - Last 24 Hours (Table) 09/07/22 09/07/22 09/08/22 Range/Units 16:47 20:15 05:56 POC Glucose (mg/dL) 270 H 222 H 382 H (70-110) mg/dL 09/08/22 Range/Units 11:59 POC Glucose (mg/dL) 221 H (70-110) mg/dL Assessment and Plan (1) H/O diabetic gastroparesis Narrative/Plan: Patient slowly improving. Continue clear liquids. Ambulate. Current Visit: No Status: Chronic Code(s): Z86.39 - PERSONAL HISTORY OF ENDO, NUTRITIONAL AND METABOLIC DISEASE SNOMED Code(s): 352631695
--- NOTE | 2022-09-08 14:20 | PN ---
PROGRESS NOTE SUBJECTIVE: This is a 37-year-old white male with diabetic ketoacidosis, on clear liquid diet, advanced diet. His sugars are in the mid 100s to 300. Apparently he had not slept in 10 days prior to coming in. Psychiatrist changed the psych medications. We advance his diet as he has less lodging and he has not thrown up as much as when he was admitted to his breathing treatments. He is doing better. Prognosis guarded. We will advance his diet to soft diet. Continue with Accu-Chek protocol, fluids, breathing treatments, PT OT. PROGNOSIS: Guarded. MMODL / IJN: [id number] /
[2022-09-08 16:22] LABS: Glucose,Whole Blood 315 mg/dL (70-110)
[2022-09-08] MEDS: LURASIDONE 60 MG TAB PO SCH (17:23)
[2022-09-08 20:22] LABS: Glucose,Whole Blood 313 mg/dL (70-110)
[2022-09-08] MEDS: QUEtiapine 25 MG TAB PO SCH (20:45)
[2022-09-08] MEDS: MONTELUKAST 10 MG TAB PO SCH (20:45)
[2022-09-09] MEDS: METOPROLOL TARTRATE 5 MG/5 ML VIAL IVP SCH ×3 (02:02→16:24)
[2022-09-09] MEDS: HYDROmorphone 0.5 MG/0.5 ML SYRINGE IVP PRN ×6 (02:14→21:59)
[2022-09-09 06:25] LABS: Glucose,Whole Blood 408 mg/dL (70-110)
[2022-09-09] MEDS: LURASIDONE 60 MG TAB PO SCH (06:36)
[2022-09-09] MEDS: INSULIN ASPART (NovoLOG) 100 UNIT/ML VIAL SQ SCH ×4 (06:36→20:38)
[2022-09-09] MEDS: BUDESONIDE 0.5 MG/2 ML NEBU INHALATION SCH ×2 (08:31→21:24)
[2022-09-09] MEDS: IPRATROPIUM-ALBUTEROL 3 ML NEB INHALATION SCH ×4 (08:31→21:24)
[2022-09-09] MEDS: ATROPINE OPHTH SOLN 1% 5ML BTL LEFT EYE SCH ×2 (08:59→20:39)
[2022-09-09] MEDS: prednisoLONE ACETATE 1% OPHTH DROPS 5 ML BTL RIGHT EYE SCH ×2 (08:59→20:39)
[2022-09-09] MEDS: LURASIDONE 40 MG TAB PO SCH (08:59)
[2022-09-09] MEDS: ATORVASTATIN 10 MG TAB PO SCH (08:59)
[2022-09-09] MEDS: amLODIPine 5 MG TAB PO SCH ×2 (08:59→20:38)
[2022-09-09] MEDS: METOPROLOL TARTRATE 50 MG TAB PO SCH ×2 (09:00→20:38)
[2022-09-09] MEDS: lisinopriL 20 MG TAB PO SCH (09:00)
[2022-09-09] MEDS: PANTOPRAZOLE 40 MG/10 ML VIAL IVP SCH (09:00)
[2022-09-09] MEDS: QUEtiapine 50 MG TAB PO SCH ×2 (09:00→20:38)
[2022-09-09] MEDS: TRIHEXYPHENIDYL 2 MG TAB PO SCH ×2 (09:00→20:37)
--- NOTE | 2022-09-09 10:05 | PN ---
PROGRESS NOTE SUBJECTIVE: A 37-year-old gentleman, who was admitted to the hospital with diabetic ketoacidosis, and we have been consulted and involved in his care because of persistent, intermittent episodes of tachycardia. His nausea and vomiting have resolved. He is able to eat and keep food down. PHYSICAL EXAMINATION: GENERAL: Comfortable at rest. VITAL SIGNS: Heart rate is 97 beats per minute, blood pressure is 126/85, respiratory rate is 18, O2 saturation is 98% on room air. NECK: There is no jugular venous distention. Carotid upstroke is normal. RESPIRATORY: Chest exam reveals diminished air entry at the bases. CARDIAC: Reveals first and second heart sounds. No gallop. Has a systolic murmur at the apex. ABDOMEN: Soft. EXTREMITIES: Examination of extremities reveal trace edema. Peripheral pulses are palpable. ASSESSMENT: 1. Diabetic ketoacidosis. 2. Sinus tachycardia. 3. Dyslipidemia. PLAN: The patient will continue the Lopressor 50 b.i.d. that he is on. He had an An echocardiogram on this admission that revealed normal LV systolic function. MMODL / IJN: [id number] /
[2022-09-09 11:36] LABS: Glucose,Whole Blood 325 mg/dL (70-110)
[2022-09-09] MEDS: D5-0.45% NACL WITH KCL 20MEQ/L 1,000 ML IV SCH (13:52)
[2022-09-09 16:33] LABS: Glucose,Whole Blood 190 mg/dL (70-110)
--- NOTE | 2022-09-09 16:40 | P.PN ---
Subjective Progress Note Date: 09/09/22 He had pancakes this morning without emesis. He prefers liquids. He reports diffuse abdominal cramps. Otherwise no acute abdomen. Parents at bedside. Objective - Vital Signs Vital signs: Vital Signs Temp 97.8 F 09/09/22 11:09 Pulse 112 H 09/09/22 11:09 Resp 18 09/09/22 11:09 BP 106/66 09/09/22 11:09 Pulse Ox 95 09/09/22 11:09 FiO2 100 09/03/22 22:54 Intake & Output 09/08/22 09/09/22 09/09/22 18:59 06:59 18:59 Intake Total 1157 240 Output Total 550 600 900 Balance 607 600 -660 Weight 67.132 kg Intake: Oral 1157 240 Output: Urine 550 600 900 Other: Voiding Method Toilet Urinal # Voids 1 - Labs CBC & Chem 7: 09/07/22 07:47 09/07/22 07:47 Labs: Abnormal Lab Results - Last 24 Hours (Table) 09/08/22 09/09/22 09/09/22 Range/Units 20:21 06:23 11:35 POC Glucose (mg/dL) 313 H 408 H 325 H (70-110) mg/dL 09/09/22 Range/Units 16:31 POC Glucose (mg/dL) 190 H (70-110) mg/dL
[2022-09-09] MEDS: methocarbamoL 750 MG TAB PO PRN (16:50)
[2022-09-09 19:53] LABS: Glucose,Whole Blood 319 mg/dL (70-110)
[2022-09-09] MEDS: ONDANSETRON 4 MG/2 ML VIAL IVP PRN (20:35)
[2022-09-09] MEDS: QUEtiapine 25 MG TAB PO SCH (20:38)
[2022-09-09] MEDS: MONTELUKAST 10 MG TAB PO SCH (20:38)
--- NOTE | 2022-09-09 21:05 | PN ---
PROGRESS NOTE Daniel Slater is still not able to keep all of his food down. He is still getting a lot of nausea and abdominal pain. Surgery has been seeing him for gastroparesis. Hemoglobin is 12.4, white count 7.6, sodium 133, potassium 3.5, BUN 13, creatinine 0.6. Dr. Tafoya saw the patient for infection. His white count is 7.6, creatinine 0.85. Blood pressure 125/77, O2 99, temp 98.1 pulse 94. He is skinny, resting comfortably. Heart S1, S2. Lungs are mild wheeze. Abdomen is soft. Extremities no edema. ASSESSMENT: Esophagitis, leukocytosis, insulin-dependent diabetes mellitus, status post DKA, MRSA pneumonia on CT of the chest. White count has normalized. Gave nystatin swish and swallow, which he is refusing. Possibly some antifungal therapy for possible esophagitis. Again, DKA has improved. Heart rate is still high in the 110s and 120s. He is coming off from psych medications. Temp 98.2, blood pressure 106 to 128 over 70s to 80sm O2 is 95% on room air. Sugars are 200 to 400s. Remains on Tegretol for seizures. Clonidine for hypertension, dyslipidemia, amlodipine for hypertension. He is back on his Latuda for depression, DuoNeb, Pulmicort, hypertension, back up on his metoprolol. Please see further orders. Continue hypertension medicines, etc. Prognosis guarded. MMODL / IJN: [id number] /
[2022-09-09] MEDS: LORazepam 2 MG/ML INJ IV PRN (22:59)
[2022-09-10] MEDS: HYDROmorphone 0.5 MG/0.5 ML SYRINGE IVP PRN ×5 (02:01→18:47)
[2022-09-10] MEDS: PROCHLORPERAZINE INJ 10 MG/2 ML VIAL IVP PRN (02:04)
[2022-09-10] MEDS: ONDANSETRON 4 MG/2 ML VIAL IVP PRN ×2 (04:41→14:29)
[2022-09-10 05:59] LABS: Glucose,Whole Blood >600 mg/dL (70-110)
[2022-09-10] MEDS: METOPROLOL TARTRATE 50 MG TAB PO SCH (06:01)
[2022-09-10] MEDS: LURASIDONE 40 MG TAB PO SCH (06:01)
[2022-09-10 06:42] LABS: Basophils % (A) 0 %; Eosinophils % (A) 0 %; HCT 45.2 % (39.0-53.0); HGB 14.7 gm/dL (13.0-17.5); Lymphocytes # (A) 1.5 k/uL (1.0-4.8); Lymphocytes % (A) 6 %; MCH 30.6 pg (25.0-35.0); MCHC 32.6 g/dL (31.0-37.0); MCV 93.9 fL (80.0-100.0); Mean Platelet Volume 7.8; Monocytes # (A) 0.7 k/uL (0-1.0); Monocytes % (A) 3 %; Neutrophils # (A) 22.9 k/uL (1.3-7.7); Neutrophils % (A) 91 %; Platelet Count 346 k/uL (150-450); RBC 4.81 m/uL (4.30-5.90); RDW 12.4 % (11.5-15.5); WBC 25.3 k/uL (3.8-10.6)
[2022-09-10 06:58] LABS: ALT 16 U/L (4-49); AST 18 U/L (17-59); African American GFR (CKD) 82 (>60 ml/min/1.73 sqM); Albumin 4.1 g/dL (3.5-5.0); Alkaline Phosphatase 120 U/L (38-126); Anion Gap 37 mmol/L; Blood Urea Nitrogen 15 mg/dL (9-20); Calcium 9.6 mg/dL (8.4-10.2); Chloride 90 mmol/L (98-107); Non-African American GFR(CKD) 71 (>60 ml/min/1.73 sqM); Sodium 132 mmol/L (137-145); Total Bilirubin 0.6 mg/dL (0.2-1.3); Total Protein 6.3 g/dL (6.3-8.2)
[2022-09-10] MEDS: INSULIN ASPART (NovoLOG) 100 UNIT/ML VIAL SQ SCH (07:04)
[2022-09-10 07:09] LABS: Carbon Dioxide 5 mmol/L (22-30)
[2022-09-10 07:12] LABS: Glucose 722 mg/dL (74-99)
[2022-09-10] MEDS ORDERED: DEXTROSE 50% SYRINGE 50 ML IVP PRN ×2 (07:20)
[2022-09-10] MEDS ORDERED: Magnesium Replacement Protocol 1 EACH MISC MISCELLANE PRN (07:20)
[2022-09-10] MEDS ORDERED: INSULIN REGULAR BOLUS (FROM DRIP BAG) IV ONE (07:20)
[2022-09-10] MEDS ORDERED: Potassium Replacement Protocol 1 EACH MISC MISCELLANE PRN ×2 (07:20→21:51)
[2022-09-10] MEDS: BUDESONIDE 0.5 MG/2 ML NEBU INHALATION SCH ×2 (08:07→20:10)
[2022-09-10] MEDS: IPRATROPIUM-ALBUTEROL 3 ML NEB INHALATION SCH ×4 (08:08→20:10)
[2022-09-10 08:47] LABS: Glucose,Whole Blood >600 mg/dL (70-110)
[2022-09-10 09:00] LABS: Glucose,Whole Blood >600 mg/dL (70-110)
[2022-09-10] MEDS ORDERED: SODIUM CHLORIDE 0.9% 2,000 ML IV ONE (09:32)
--- NOTE | 2022-09-10 09:33 | P.CNPUL ---
History of Present Illness Consult date: 09/10/22 Chief complaint: DKA History of present illness: 36-year-old male patient, type 1 diabetes mellitus, got transferred to the intensive care unit as the patient's wound back into DKA based on morning labs. Noted the patient has type 1 diabetes mellitus and initially presented to the hospital because of DKA and his initial admission was back in 09/03/2022. He was treated by Dr. Dickerson and Dr. Mendoza, nevertheless, his blood sugars continued to be elevated and earlier this morning, the patient bounced back into DKA. Currently, he seems to be dehydrated. Most recent blood sugar is elevated and his blood sugar has been running high above 700. His serum bicarb is less than 5 and his anion gap is currently at 37. BUN is 15 and the patient is also sustained an acute kidney injury with a creatinine of 1.28. His white cell count is at 25 with a hemoglobin of 14.7 and a platelet count of 346. Based on that, the patient was restarted back on insulin drip which is currently running at 6 units an hour. We are trying to establish IV access to start resuscitating this patient with IV fluids and insulin drip. He is lethargic, encephalopathic, dehydrated, and he has been having emesis coffee-ground. No melanotic stools. The patient's echocardiogram shows an ejection fraction of 55-60%. He does have advanced diabetic gastroparesis, hypertensive heart disease and hyperlipidemia. Review of Systems ROS unobtainable: due to mental status Past Medical History Past Medical History: Diabetes Mellitus Additional Past Medical History / Comment(s): bilateral glaucoma, Tachycardia, diabetic gastropariesis, diabetic neuropathy, migraine headaches, peptic ulcer disease, retinal detachment status post multiple surgeries History of Any Multi-Drug Resistant Organisms: None Reported Past Surgical History: Pacemaker Additional Past Surgical History / Comment(s): eye surgery, EGDs Past Anesthesia/Blood Transfusion Reactions: No Reported Reaction Past Psychological History: Anxiety, Bipolar, Depression Smoking Status: Current every day smoker Past Alcohol Use History: None Reported Past Drug Use History: None Reported - Past Family History Father Additional Family Medical History / Comment(s): Patient does not know his father's age nor his health problems. Mother Additional Family Medical History / Comment(s): Patient does not know his moth er's age but states she has fibromyalgia. Sister(s) Additional Family Medical History / Comment(s): Patient has 1 sister with no major medical problems. Medications and Allergies Home Medications Medication Instructions Recorded Confirmed Type Metoprolol Tartrate [Lopressor] 150 mg PO BID 06/04/16 09/03/22 History Atorvastatin [Lipitor] 10 mg PO DAILY 01/08/22 09/03/22 History Atropine Sulfate [Atropine Sulfate 1 drop LEFT EYE BID 01/08/22 09/05/22 History 1%] Insulin Aspart (Niacinamide) 0.01 unit SQ-PUMP CONTINUOUS 01/08/22 09/03/22 History [Fiasp 100 Unit/ml Vial] Lurasidone HCl [Latuda] 120 mg PO W/SUPPER 01/08/22 09/03/22 History Lurasidone [Latuda] 40 mg PO W/BRKFST 01/08/22 09/03/22 History Montelukast [Singulair] 10 mg PO HS 01/08/22 09/03/22 History QUEtiapine XR [SEROquel XR] 100 mg PO HS 01/08/22 09/03/22 History prednisoLONE ACETATE 1% OPHTH 1 drop RIGHT EYE BID 01/08/22 09/05/22 History [Pred Forte 1%] Pantoprazole [Protonix] 40 mg PO DAILY 04/08/22 09/03/22 History QUEtiapine FUMARATE [SEROquel] 25 mg PO HS@1900 04/08/22 09/03/22 History Trihexyphenidyl [Artane] 2 mg PO DAILY 04/08/22 09/03/22 History carBAMazepine CHEW [TEGretol Chew] 100 mg PO BID 04/08/22 09/03/22 History amLODIPine [Norvasc] 5 mg PO DAILY 90 Days #90 tab 04/13/22 09/03/22 Rx Albuterol Inhaler [Ventolin Hfa 2 puff INHALATION RT-Q4H PRN 09/03/22 09/03/22 History Inhaler] Glucagon Emergency Kit 1 mg IM ONCE PRN 09/03/22 09/03/22 History Omeprazole [PriLOSEC] 20 mg PO HS 09/03/22 09/03/22 History Rizatriptan Benzoate [Maxalt] 10 mg PO DAILY PRN 09/03/22 09/03/22 History Tiotropium 2.5 Mcg/Puff [Spiriva 2 puff INHALATION RT-DAILY 09/03/22 09/03/22 History Respimat 2.5 Mcg] Trihexyphenidyl [Artane] 4 mg PO HS 09/03/22 09/03/22 History cloNIDine HCL [Catapres] 0.2 mg PO BID 09/03/22 09/03/22 History lisinopriL [Zestril] 20 mg PO DAILY 09/03/22 09/03/22 History methocarbamoL [Robaxin-750] 750 mg PO BID PRN 09/03/22 09/03/22 History Allergies Allergy/AdvReac Type Severity Reaction Status Date / Time adhesive tape Allergy Rash/Hives Verified 09/03/22 21:43 cefazolin Allergy Rash/Hives Verified 09/03/22 21:43 latex Allergy Rash/Hives Verified 09/03/22 21:43 metoclopramide [From Reglan] AdvReac Severe Tardive Verified 09/03/22 21:43 Dyskinesia amoxicillin [From Augmentin] AdvReac Nausea & Verified 09/03/22 21:43 Vomiting & Diarrhea clavulanic acid AdvReac Nausea & Verified 09/03/22 21:43 [From Augmentin] Vomiting & Diarrhea duloxetine [From Cymbalta] AdvReac Hallucinati Verified 09/03/22 21:43 ons pregabalin [From Lyrica] AdvReac Hallucinati Verified 09/03/22 21:43 ons Physical Exam Vitals: Vital Signs Temp Pulse Resp BP Pulse Ox 09/10/22 08:00 127 H 20 138/69 98 09/10/22 04:00 148 H 16 143/93 98 09/10/22 00:00 125 H 16 121/91 96 09/09/22 20:00 97.9 F 129 H 16 121/86 98 09/09/22 16:00 98.1 F 110 H 16 128/89 95 09/09/22 11:09 97.8 F 112 H 18 106/66 95 Intake and Output 09/09/22 09/10/22 09/10/22 22:59 06:59 14:59 Intake Total 1560 2160 Output Total 250 450 Balance 1310 1710 Intake: Oral 1560 2160 Output: Urine 250 450 Other: Voiding Method Toilet Toilet Urinal Urinal - Constitutional General appearance: average body habitus, cooperative, disheveled my lethargic, encephalopathic at this point in time and he looks obviously dehydrated. The patient is currently on room air oxygen. No signs of any respiratory distress. - EENT Eyes: EOMI, PERRLA Ears: bilateral: normal - Neck Carotids: bilateral: upstroke normal Thyroid: bilateral: normal size - Respiratory Respiratory: bilateral: Lungs were clear to auscultation and percussion, and with normal diaphragmatic excursion. No wheezes or rales were noted. - Cardiovascular Rhythm: regular Heart sounds:Cardiac exam revealed the PMI to be normally situated and sized. The rhythm was regular and no extrasystoles were noted during several minutes of auscultation. The first and second heart sounds were normal and physiologic splitting of the second heart sound was noted. There were no murmurs, rubs, clicks, or gallops. - Gastrointestinal General gastrointestinal: soft - Integumentary Integumentary: Mucous membranes are dry - Neurologic Neurologic: CNII-XII intact, diminished level of consciousness and the patient is lethargic - Musculoskeletal Musculoskeletal: gait normal, generalized weakness, strength equal bilaterally - Psychiatric Psychiatric: A&O x's 3, appropriate affect, intact judgment & insight Results - Laboratory Findings CBC and BMP: 09/10/22 06:27 09/10/22 06:27 Abnormal lab findings: Abnormal Labs 09/03/22 09/03/22 09/03/22 14:05 14:25 14:25 WBC 12.4 H RBC Hgb Hct Neutrophils # 10.1 H VBG pH VBG pCO2 VBG HCO3 Sodium 132 L Potassium Chloride 96 L Carbon Dioxide 7 L* BUN 24 H Creatinine 1.84 H Glucose 539 H* POC Glucose (mg/dL) 509 H Phosphorus Magnesium 2.5 H AST Alkaline Phosphatase Total Protein Albumin Procalcitonin 09/03/22 09/03/22 09/03/22 14:25 16:22 17:12 WBC RBC Hgb Hct Neutrophils # VBG pH 7.25 L VBG pCO2 23 L VBG HCO3 10 L Sodium 134 L Potassium Chloride Carbon Dioxide 14 L BUN Creatinine Glucose POC Glucose (mg/dL) 344 H Phosphorus Magnesium AST Alkaline Phosphatase Total Protein Albumin Procalcitonin 09/03/22 09/03/2223 17:12 17:17 18:14 WBC RBC Hgb Hct Neutrophils # VBG pH VBG pCO2 VBG HCO3 Sodium Potassium Chloride Carbon Dioxide BUN 21 H Creatinine 1.46 H Glucose 302 H POC Glucose (mg/dL) 318 H 258 H Phosphorus 1.7 L Magnesium AST Alkaline Phosphatase Total Protein Albumin Procalcitonin 09/03/22 09/03/22 09/03/22 20:11 20:11 20:11 WBC RBC Hgb Hct Neutrophils # VBG pH VBG pCO2 VBG HCO3 Sodium 136 L Potassium Chloride 108 H Carbon Dioxide 18 L BUN Creatinine Glucose 160 H POC Glucose (mg/dL) Phosphorus 1.9 L Magnesium AST Alkaline Phosphatase Total Protein Albumin Procalcitonin 09/03/22 09/03/22 09/03/22 20:54 22:11 23:20 WBC RBC Hgb Hct Neutrophils # VBG pH VBG pCO2 VBG HCO3 Sodium Potassium Chloride Carbon Dioxide BUN Creatinine Glucose POC Glucose (mg/dL) 164 H 134 H 118 H Phosphorus Magnesium AST Alkaline Phosphatase Total Protein Albumin Procalcitonin 09/04/22 09/04/22 09/04/22 00:26 01:19 02:06 WBC RBC Hgb Hct Neutrophils # VBG pH VBG pCO2 VBG HCO3 Sodium Potassium Chloride Carbon Dioxide BUN Creatinine Glucose POC Glucose (mg/dL) 133 H 155 H 140 H Phosphorus Magnesium AST Alkaline Phosphatase Total Protein Albumin Procalcitonin 09/04/22 09/04/22 09/04/22 06:28 07:37 07:37 WBC 26.8 H RBC 4.16 L Hgb 12.9 L Hct 38.4 L Neutrophils # 24.5 H VBG pH VBG pCO2 VBG HCO3 Sodium 136 L Potassium 5.2 H Chloride Carbon Dioxide 6 L* BUN Creatinine Glucose 504 H* POC Glucose (mg/dL) 452 H Phosphorus Magnesium AST 14 L Alkaline Phosphatase 137 H Total Protein 6.0 L Albumin Procalcitonin 09/04/22 09/04/22 09/04/22 07:48 09:27 11:32 WBC RBC Hgb Hct Neutrophils # VBG pH VBG pCO2 VBG HCO3 Sodium Potassium Chloride Carbon Dioxide BUN Creatinine Glucose POC Glucose (mg/dL) 480 H 457 H 375 H Phosphorus Magnesium AST Alkaline Phosphatase Total Protein Albumin Procalcitonin 09/04/22 09/04/22 09/04/22 12:43 13:22 13:27 WBC RBC Hgb Hct Neutrophils # VBG pH VBG pCO2 VBG HCO3 Sodium Potassium Chloride 109 H Carbon Dioxide 8 L* BUN Creatinine Glucose 268 H POC Glucose (mg/dL) 287 H 225 H Phosphorus 2.1 L Magnesium AST Alkaline Phosphatase Total Protein Albumin Procalcitonin 09/04/22 09/04/22 09/04/22 14:27 15:33 16:19 WBC RBC Hgb Hct Neutrophils # VBG pH VBG pCO2 VBG HCO3 Sodium Potassium Chloride Carbon Dioxide BUN Creatinine Glucose POC Glucose (mg/dL) 206 H 151 H 133 H Phosphorus Magnesium AST Alkaline Phosphatase Total Protein Albumin Procalcitonin 09/04/22 09/04/22 09/04/22 17:12 17:39 17:39 WBC RBC Hgb Hct Neutrophils # VBG pH VBG pCO2 VBG HCO3 Sodium Potassium Chloride 110 H Carbon Dioxide 17 L BUN Creatinine Glucose 124 H POC Glucose (mg/dL) 114 H Phosphorus 2.4 L Magnesium AST Alkaline Phosphatase Total Protein Albumin Procalcitonin 2.78 H 09/04/22 09/04/22 09/04/22 18:17 19:15 20:34 WBC RBC Hgb Hct Neutrophils # VBG pH VBG pCO2 VBG HCO3 Sodium Potassium Chloride Carbon Dioxide BUN Creatinine Glucose POC Glucose (mg/dL) 126 H 135 H 209 H Phosphorus Magnesium AST Alkaline Phosphatase Total Protein Albumin Procalcitonin 09/04/22 09/04/22 09/04/22 21:28 22:29 23:45 WBC RBC Hgb Hct Neutrophils # VBG pH VBG pCO2 VBG HCO3 Sodium Potassium Chloride Carbon Dioxide BUN Creatinine Glucose POC Glucose (mg/dL) 292 H 325 H 352 H Phosphorus Magnesium AST Alkaline Phosphatase Total Protein Albumin Procalcitonin 09/05/22 09/05/22 09/05/22 00:30 01:29 02:29 WBC RBC Hgb Hct Neutrophils # VBG pH VBG pCO2 VBG HCO3 Sodium Potassium Chloride Carbon Dioxide BUN Creatinine Glucose POC Glucose (mg/dL) 375 H 321 H 376 H Phosphorus Magnesium AST Alkaline Phosphatase Total Protein Albumin Procalcitonin 09/05/22 09/05/22 09/05/22 03:31 04:32 05:36 WBC RBC Hgb Hct Neutrophils # VBG pH VBG pCO2 VBG HCO3 Sodium Potassium Chloride Carbon Dioxide BUN Creatinine Glucose POC Glucose (mg/dL) 335 H 279 H 253 H Phosphorus Magnesium AST Alkaline Phosphatase Total Protein Albumin Procalcitonin 09/05/22 09/05/22 09/05/22 06:43 07:26 07:50 WBC RBC Hgb Hct Neutrophils # VBG pH VBG pCO2 VBG HCO3 Sodium Potassium Chloride 108 H Carbon Dioxide 20 L BUN Creatinine Glucose 223 H POC Glucose (mg/dL) 206 H 213 H Phosphorus Magnesium AST Alkaline Phosphatase Total Protein Albumin Procalcitonin 09/05/22 09/05/22 09/05/22 08:29 09:49 10:13 WBC 14.1 H RBC 3.95 L Hgb 12.4 L Hct 36.1 L Neutrophils # VBG pH VBG pCO2 VBG HCO3 Sodium Potassium Chloride Carbon Dioxide BUN Creatinine Glucose POC Glucose (mg/dL) 200 H 165 H Phosphorus Magnesium AST Alkaline Phosphatase Total Protein Albumin Procalcitonin 09/05/22 09/05/22 09/05/22 11:33 16:35 20:06 WBC RBC Hgb Hct Neutrophils # VBG pH VBG pCO2 VBG HCO3 Sodium Potassium Chloride Carbon Dioxide BUN Creatinine Glucose POC Glucose (mg/dL) 157 H 341 H 209 H Phosphorus Magnesium AST Alkaline Phosphatase Total Protein Albumin Procalcitonin 09/06/22 09/06/22 09/06/22 05:58 09:45 09:45 WBC RBC 3.69 L Hgb 11.7 L Hct 33.5 L Neutrophils # VBG pH VBG pCO2 VBG HCO3 Sodium 136 L Potassium Chloride Carbon Dioxide 16 L BUN Creatinine Glucose 201 H POC Glucose (mg/dL) 378 H Phosphorus Magnesium AST 13 L Alkaline Phosphatase Total Protein 5.4 L Albumin 3.2 L Procalcitonin 09/06/22 09/06/22 09/06/22 11:39 16:39 20:28 WBC RBC Hgb Hct Neutrophils # VBG pH VBG pCO2 VBG HCO3 Sodium Potassium Chloride Carbon Dioxide BUN Creatinine Glucose POC Glucose (mg/dL) 194 H 408 H 269 H Phosphorus Magnesium AST Alkaline Phosphatase Total Protein Albumin Procalcitonin 09/07/22 09/07/22 09/07/22 06:11 07:47 07:47 WBC RBC 4.00 L Hgb 12.4 L Hct 36.8 L Neutrophils # VBG pH VBG pCO2 VBG HCO3 Sodium 133 L Potassium Chloride Carbon Dioxide 11 L BUN Creatinine Glucose 253 H POC Glucose (mg/dL) 274 H Phosphorus Magnesium AST 14 L Alkaline Phosphatase Total Protein 5.8 L Albumin 3.3 L Procalcitonin 09/07/22 09/07/22 09/07/22 11:37 16:47 20:15 WBC RBC Hgb Hct Neutrophils # VBG pH VBG pCO2 VBG HCO3 Sodium Potassium Chloride Carbon Dioxide BUN Creatinine Glucose POC Glucose (mg/dL) 288 H 270 H 222 H Phosphorus Magnesium AST Alkaline Phosphatase Total Protein Albumin Procalcitonin 09/08/22 09/08/22 09/08/22 05:56 11:59 16:20 WBC RBC Hgb Hct Neutrophils # VBG pH VBG pCO2 VBG HCO3 Sodium Potassium Chloride Carbon Dioxide BUN Creatinine Glucose POC Glucose (mg/dL) 382 H 221 H 315 H Phosphorus Magnesium AST Alkaline Phosphatase Total Protein Albumin Procalcitonin 09/08/22 09/09/22 09/09/22 20:21 06:23 11:35 WBC RBC Hgb Hct Neutrophils # VBG pH VBG pCO2 VBG HCO3 Sodium Potassium Chloride Carbon Dioxide BUN Creatinine Glucose POC Glucose (mg/dL) 313 H 408 H 325 H Phosphorus Magnesium AST Alkaline Phosphatase Total Protein Albumin Procalcitonin 09/09/22 09/09/22 09/10/22 16:31 19:52 05:57 WBC RBC Hgb Hct Neutrophils # VBG pH VBG pCO2 VBG HCO3 Sodium Potassium Chloride Carbon Dioxide BUN Creatinine Glucose POC Glucose (mg/dL) 190 H 319 H >600 H Phosphorus Magnesium AST Alkaline Phosphatase Total Protein Albumin Procalcitonin 09/10/22 09/10/22 09/10/22 06:27 06:27 08:43 WBC 25.3 H RBC Hgb Hct Neutrophils # 22.9 H VBG pH VBG pCO2 VBG HCO3 Sodium 132 L Potassium Chloride 90 L Carbon Dioxide 5 L* BUN Creatinine 1.28 H Glucose 722 H* POC Glucose (mg/dL) >600 H Phosphorus Magnesium AST Alkaline Phosphatase Total Protein Albumin Procalcitonin 09/10/22 08:59 WBC RBC Hgb Hct Neutrophils # VBG pH VBG pCO2 VBG HCO3 Sodium Potassium Chloride Carbon Dioxide BUN Creatinine Glucose POC Glucose (mg/dL) >600 H Phosphorus Magnesium AST Alkaline Phosphatase Total Protein Albumin Procalcitonin Assessment and Plan Plan: DKA, with severe anion gap metabolic acidosis and the patient has poorly controlled blood sugar, serum bicarb is less than 5 and a serum anion gap is up to 37. Initial hospitalization for DKA back in 09/03/2022 and the patient bounced back into DKA over the past 24 hours Severe dehydration Sinus tachycardia Acute kidney injury secondary to above Encephalopathy, metabolic secondary to above Diabetes mellitus type 1 Diabetic gastroparesis Diabetic neuropathy Migraines Coffee-ground emesis with a possibility of an underlying peptic ulcer disease Retinal detachment Mild intermittent bronchial asthma History of nausea and emesis related to advanced gastroparesis and the patient has been maintained on a prokinetic agent and a PPI. Hypertension Hypertensive heart disease Plan Admit the patient to the intensive care unit Give immediately 2 L of saline bolus Start the patient on DKA protocol with insulin drip Monitor hourly blood sugars Monitor electrolytes and anion gap every 4 hours Keep the patient nothing by mouth for now Continue IV Protonix Continue antihypertensive medications We'll continue to follow Time with Patient: Greater than 30
--- NOTE | 2022-09-10 09:44 | P.PCN ---
Date of Procedure: 09/10/22 Preoperative Diagnosis: DKA Postoperative Diagnosis: DKA, need for IV access Procedure(s) Performed: Triple-lumen catheter Anesthesia: local Surgeon: Saranya Payton Condition: critical Disposition: ICU Operative Findings: Indication: Hemodynamic monitoring/Intravenous access. A time-out was completed verifying correct patient, procedure, site, positioning, and implant(s) or special equipment if applicable. The patient was placed in a dependent position appropriate for central line placement based on the vein to be cannulated. The patients right groin was prepped and draped in sterile fashion. 1% Lidocaine was used to anesthetize the surrounding skin area. A triple lumen 9F Cordis catheter was introduced into the right common femoral vein using Seldinger technique. The catheter was threaded smoothly over the guide wire and appropriate blood return was obtained. Each lumen of the catheter was evacuated of air and flushed with sterile saline. The catheter was then sutured in place to the skin and a sterile dressing applied. Perfusion to the extremity distal to the point of catheter insertion was checked and found to be adequate. The patient tolerated the procedure well and there were no complications.
[2022-09-10] MEDS: INSULIN REGULAR 100 UNIT in SODIUM CHLORIDE 0.9% 100 ML IV SCH ×2 (09:54→23:06)
[2022-09-10 10:02] LABS: Glucose,Whole Blood 565 mg/dL (70-110)
[2022-09-10] MEDS: amLODIPine 5 MG TAB PO SCH ×2 (10:11→20:09)
[2022-09-10] MEDS: ATORVASTATIN 10 MG TAB PO SCH (10:11)
[2022-09-10] MEDS: QUEtiapine 50 MG TAB PO SCH ×2 (10:12→20:09)
[2022-09-10] MEDS: lisinopriL 20 MG TAB PO SCH (10:12)
[2022-09-10] MEDS: TRIHEXYPHENIDYL 2 MG TAB PO SCH ×2 (10:12→20:09)
[2022-09-10] MEDS: METOCLOPRAMIDE 5 MG/ML 2 ML VIAL IVP SCH ×3 (10:13→23:59)
[2022-09-10 10:24] LABS: VBG PH 7.25 (7.31-7.41)
[2022-09-10] MEDS: METOPROLOL TARTRATE 5 MG/5 ML VIAL IVP SCH ×3 (10:24→20:08)
[2022-09-10 10:42] LABS: African American GFR (CKD) 74 (>60 ml/min/1.73 sqM); Blood Urea Nitrogen 22 mg/dL (9-20); Chloride 94 mmol/L (98-107); Non-African American GFR(CKD) 64 (>60 ml/min/1.73 sqM); Potassium 3.3 mmol/L (3.5-5.1); Sodium 134 mmol/L (137-145)
[2022-09-10 10:51] LABS: Carbon Dioxide <5 mmol/L (22-30); Glucose 630 mg/dL (74-99)
[2022-09-10 11:06] LABS: Glucose,Whole Blood 489 mg/dL (70-110)
[2022-09-10] MEDS: ATROPINE OPHTH SOLN 1% 5ML BTL LEFT EYE SCH ×2 (11:24→20:08)
[2022-09-10] MEDS: prednisoLONE ACETATE 1% OPHTH DROPS 5 ML BTL RIGHT EYE SCH ×2 (11:24→20:08)
[2022-09-10] MEDS: SODIUM CHLORIDE 0.9% 1,000 ML IV SCH ×4 (11:24→23:09)
--- NOTE | 2022-09-10 11:36 | P.PN ---
Subjective Progress Note Date: 09/10/22 History of present illness: This is a 36 year old male with history of DM type I presented with DKA and we have been asked to evaluate for tachycardia. Patient has been in sinus tachycardia up to 127 bpm. He continues to have significant vomiting despite use of Zofran and has been unable to maintain any oral medications. Yesterday, he was started on Lopressor 5 mg every 8 hours. Blood pressure is 166/87, heart rate 125 to 1:30 range. Blood sugar 200 Echocardiogram reveals EF of 55-60% with mild left ventricular hypertrophy, no mitral regurgitation, no pericardial effusion. 09/06 Patient is seen today in follow-up. He states that he is not vomiting but he is not taking oral medications. Blood pressures running 100-105. He is on IV Lopressor. Blood pressure 143/82 and patient is on Catapres patch. Blood sugars are running in the 200s to 300s. 09/07 Patient remains mildly tachycardia to 90 to low 100s, blood pressure 145/80. Patient is not taking his oral medications as yesterday he was refusing them. It appears he had some emesis that is noted in the pad at the bedside. Patient encouraged to take oral medications to address his blood pressure and heart rate. Sodium 133, potassium 3.5, BUN 13 creatinine 0.86. Blood sugars of been anywhere from 253-408. 09/08 Patient has started taking some of the oral medications including the metoprolol. Heart rate is now running in the 90s to 110. He is in a sinus rhythm. 09/09 The patient had coffee-ground emesis this morning and was thought to be back in DKA with carbon dioxide of 5, blood sugar 722, transferred to the intensive care unit. Heart rate is in the 120s 130s, respiratory rate elevated, blood pressure 107/67. IV Lopressor was discontinued as patient took his oral for about one day. This will be resumed. Physical examination: Gen: This is a 36-year-old ill-appearing male. VS: reviewed HEENT: Head is atraumatic, normocephalic. Pupils equal, round. Sclerae is anicteric. LUNGS: Clear to auscultation. No wheezes or rhonchi. No intercostal retractions. HEART: Regular rate and rhythm. No murmur. EXTREMITIES: No pedal edema. No calf tenderness. NEUROLOGICAL: Patient is awake, alert. Assessment: Diabetic ketoacidosis Sinus tachycardia Plan: Medicine to continue management of DKA Continue IV Lopressor until patient is able to take oral medications Continue Catapres patch for blood pressure control until patient is able to take all oral medications Resume patient's home cardiac medications once his able to/willing to take oral medications. Patient has been encouraged to take his medications to address the blood pressure and heart rate. Further recommendations to follow based upon clinical course Nurse practitioner note has been reviewed, I agree with documented findings and plan of care. Patient was seen and examined. Objective - Vital Signs Vital signs: Vital Signs Temp 98.1 F 09/10/22 10:05 Pulse 131 H 09/10/22 10:05 Resp 34 H 09/10/22 10:05 BP 107/67 09/10/22 10:05 Pulse Ox 97 09/10/22 10:05 FiO2 100 09/03/22 22:54 Intake & Output 09/09/22 09/10/22 09/10/22 18:59 06:59 18:59 Intake Total 1260 2700 1006.7 Output Total 1150 450 0 Balance 110 2250 1006.7 Intake: Intake, IV Titration 1006.7 Amount Insulin Regular 100 unit 6.7 In Sodium Chloride 0.9% 100 ml @ 0.1 UNITS/KG/HR 6.78 mls/hr IV .[id number] [facility] Rx#:[id number] Sodium Chloride 0.9% 2, 1000 000 ml @ 999 mls/hr IV . Q2H1M ONE Rx#:[id number] Oral 1260 2700 0 Output: Urine 1150 450 0 Other: Voiding Method Toilet Urinal # Voids 1 - Labs CBC & Chem 7: 09/10/22 06:27 09/10/22 10:00 Labs: Abnormal Lab Results - Last 24 Hours (Table) 09/09/22 09/09/22 09/09/22 Range/Units 11:35 16:31 19:52 WBC (3.8-10.6) k/uL Neutrophils # (1.3-7.7) k/uL VBG pH (7.31-7.41) VBG pCO2 (37-51) mmHg VBG HCO3 (24-28) mmol/L Sodium (137-145) mmol/L Chloride (98-107) mmol/L Carbon Dioxide (22-30) mmol/L Creatinine (0.66-1.25) mg/dL Glucose (74-99) mg/dL POC Glucose (mg/dL) 325 H 190 H 319 H (70-110) mg/dL 09/10/22 09/10/22 09/10/22 Range/Units 05:57 06:27 06:27 WBC 25.3 H (3.8-10.6) k/uL Neutrophils # 22.9 H (1.3-7.7) k/uL VBG pH (7.31-7.41) VBG pCO2 (37-51) mmHg VBG HCO3 (24-28) mmol/L Sodium 132 L (137-145) mmol/L Chloride 90 L (98-107) mmol/L Carbon Dioxide 5 L* (22-30) mmol/L Creatinine 1.28 H (0.66-1.25) mg/dL Glucose 722 H* (74-99) mg/dL POC Glucose (mg/dL) >600 H (70-110) mg/dL 09/10/22 09/10/22 09/10/22 Range/Units 08:43 08:59 10:00 WBC (3.8-10.6) k/uL Neutrophils # (1.3-7.7) k/uL VBG pH 7.25 L (7.31-7.41) VBG pCO2 15 L* (37-51) mmHg VBG HCO3 7 L* (24-28) mmol/L Sodium (137-145) mmol/L Chloride (98-107) mmol/L Carbon Dioxide (22-30) mmol/L Creatinine (0.66-1.25) mg/dL Glucose (74-99) mg/dL POC Glucose (mg/dL) >600 H >600 H (70-110) mg/dL 09/10/22 Range/Units 10:01 WBC (3.8-10.6) k/uL Neutrophils # (1.3-7.7) k/uL VBG pH (7.31-7.41) VBG pCO2 (37-51) mmHg VBG HCO3 (24-28) mmol/L Sodium (137-145) mmol/L Chloride (98-107) mmol/L Carbon Dioxide (22-30) mmol/L Creatinine (0.66-1.25) mg/dL Glucose (74-99) mg/dL POC Glucose (mg/dL) 565 H (70-110) mg/dL
[2022-09-10 11:55] LABS: Glucose,Whole Blood 364 mg/dL (70-110)
[2022-09-10] MEDS ORDERED: KETOROLAC 15 MG/ML 1 ML VIAL IVP SCH (12:00)
[2022-09-10 13:16] LABS: Glucose,Whole Blood 272 mg/dL (70-110)
[2022-09-10] MEDS: D5-0.45% NACL WITH KCL 20MEQ/L 1,000 ML IV SCH ×4 (13:22→22:05)
[2022-09-10] MEDS: KETOROLAC 15 MG/ML 1 ML VIAL IVP PRN ×2 (13:23→22:03)
--- NOTE | 2022-09-10 13:52 | P.PN ---
Subjective Progress Note Date: 09/10/22 Patient now transferred from floor to ICU for hematemesis and uncontrolled DKA. He had triple lumen placed for IV fluids and access At bedside, pick bucket with dark coffee ground emesis Recommend Protonix 40 mg BID May benefit from upper endoscopy for acute upper GI bleed Objective - Vital Signs Vital signs: Vital Signs Temp 98.1 F 09/10/22 12:00 Pulse 134 H 09/10/22 13:00 Resp 24 09/10/22 13:00 BP 107/67 09/10/22 13:00 Pulse Ox 95 09/10/22 13:00 FiO2 100 09/03/22 22:54 Intake & Output 09/09/22 09/10/22 09/10/22 18:59 06:59 18:59 Intake Total 1260 2700 2427.04 Output Total 1150 450 0 Balance 110 2250 2427.04 Intake: Intake, IV Titration 2427.04 Amount Insulin Regular 100 unit 27.04 In Sodium Chloride 0.9% 100 ml @ 0.1 UNITS/KG/HR 6.78 mls/hr IV .[id number] [facility]IX Rx#:[id number] Sodium Chloride 0.9% 1, 400 000 ml @ 200 mls/hr IV . Q5H [facility] Rx#:[id number] Sodium Chloride 0.9% 2, 2000 000 ml @ 999 mls/hr IV . Q2H1M ONE Rx#:[id number] Oral 1260 2700 0 Output: Urine 1150 450 0 Other: Voiding Method Toilet Urinal # Voids 1 - Labs CBC & Chem 7: 09/10/22 06:27 09/10/22 10:00 Labs: Abnormal Lab Results - Last 24 Hours (Table) 09/09/22 09/09/22 09/10/22 Range/Units 16:31 19:52 05:57 WBC (3.8-10.6) k/uL Neutrophils # (1.3-7.7) k/uL VBG pH (7.31-7.41) VBG pCO2 (37-51) mmHg VBG HCO3 (24-28) mmol/L Sodium (137-145) mmol/L Potassium (3.5-5.1) mmol/L Chloride (98-107) mmol/L Carbon Dioxide (22-30) mmol/L BUN (9-20) mg/dL Creatinine (0.66-1.25) mg/dL Glucose (74-99) mg/dL POC Glucose (mg/dL) 190 H 319 H >600 H (70-110) mg/dL Phosphorus (2.5-4.5) mg/dL 09/10/22 09/10/22 09/10/22 Range/Units 06:27 06:27 08:43 WBC 25.3 H (3.8-10.6) k/uL Neutrophils # 22.9 H (1.3-7.7) k/uL VBG pH (7.31-7.41) VBG pCO2 (37-51) mmHg VBG HCO3 (24-28) mmol/L Sodium 132 L (137-145) mmol/L Potassium (3.5-5.1) mmol/L Chloride 90 L (98-107) mmol/L Carbon Dioxide 5 L* (22-30) mmol/L BUN (9-20) mg/dL Creatinine 1.28 H (0.66-1.25) mg/dL Glucose 722 H* (74-99) mg/dL POC Glucose (mg/dL) >600 H (70-110) mg/dL Phosphorus (2.5-4.5) mg/dL 09/10/22 09/10/22 09/10/22 Range/Units 08:59 10:00 10:00 WBC (3.8-10.6) k/uL Neutrophils # (1.3-7.7) k/uL VBG pH 7.25 L (7.31-7.41) VBG pCO2 15 L* (37-51) mmHg VBG HCO3 7 L* (24-28) mmol/L Sodium 134 L (137-145) mmol/L Potassium 3.3 L (3.5-5.1) mmol/L Chloride 94 L (98-107) mmol/L Carbon Dioxide <5 L* (22-30) mmol/L BUN 22 H (9-20) mg/dL Creatinine 1.40 H (0.66-1.25) mg/dL Glucose 630 H* (74-99) mg/dL POC Glucose (mg/dL) >600 H (70-110) mg/dL Phosphorus 6.0 H (2.5-4.5) mg/dL 09/10/22 09/10/22 09/10/22 Range/Units 10:01 11:04 11:54 WBC (3.8-10.6) k/uL Neutrophils # (1.3-7.7) k/uL VBG pH (7.31-7.41) VBG pCO2 (37-51) mmHg VBG HCO3 (24-28) mmol/L Sodium (137-145) mmol/L Potassium (3.5-5.1) mmol/L Chloride (98-107) mmol/L Carbon Dioxide (22-30) mmol/L BUN (9-20) mg/dL Creatinine (0.66-1.25) mg/dL Glucose (74-99) mg/dL POC Glucose (mg/dL) 565 H 489 H 364 H (70-110) mg/dL Phosphorus (2.5-4.5) mg/dL 09/10/22 Range/Units 13:15 WBC (3.8-10.6) k/uL Neutrophils # (1.3-7.7) k/uL VBG pH (7.31-7.41) VBG pCO2 (37-51) mmHg VBG HCO3 (24-28) mmol/L Sodium (137-145) mmol/L Potassium (3.5-5.1) mmol/L Chloride (98-107) mmol/L Carbon Dioxide (22-30) mmol/L BUN (9-20) mg/dL Creatinine (0.66-1.25) mg/dL Glucose (74-99) mg/dL POC Glucose (mg/dL) 272 H (70-110) mg/dL Phosphorus (2.5-4.5) mg/dL
[2022-09-10] MEDS ORDERED: FLUCONAZOLE IN NACL,ISO-OSM 200 MG in SALINE 1 100ML.BAG IVPB SCH (14:00)
[2022-09-10 14:01] LABS: Glucose,Whole Blood 266 mg/dL (70-110)
[2022-09-10] MEDS: LORazepam 2 MG/ML INJ IV PRN (14:30)
[2022-09-10] MEDS ORDERED: ANIDULAFUNGIN 200 MG in SODIUM CHLORIDE 0.9% 200 ML IVPB ONE (15:01)
[2022-09-10 15:05] LABS: Glucose,Whole Blood 205 mg/dL (70-110)
--- NOTE | 2022-09-10 15:22 | XR ---
EXAMINATION TYPE: XR chest 1V portable DATE OF EXAM: 09/10/2022 COMPARISON: 01/08/2022 INDICATION: Shortness of breath TECHNIQUE: Single frontal view of the chest is obtained. FINDINGS: The heart size is normal. The pulmonary vasculature is normal. The lungs are clear. IMPRESSION: 1. No acute pulmonary process.
[2022-09-10 15:34] LABS: African American GFR (CKD) 80 (>60 ml/min/1.73 sqM); Anion Gap 19 mmol/L; Blood Urea Nitrogen 32 mg/dL (9-20); C Reactive Protein 2.4 mg/dL (<1.0); Carbon Dioxide 14 mmol/L (22-30); Chloride 104 mmol/L (98-107); Glucose 247 mg/dL (74-99); Non-African American GFR(CKD) 69 (>60 ml/min/1.73 sqM); Potassium 3.3 mmol/L (3.5-5.1); Sodium 137 mmol/L (137-145)
[2022-09-10 15:59] LABS: Glucose,Whole Blood 192 mg/dL (70-110)
--- NOTE | 2022-09-10 16:23 | P.PN ---
Subjective Progress Note Date: 09/09/22 Principal diagnosis: Leukocytosis Patient is a 36-year-old male with a past medical history significant for insulin-dependent diabetes mellitus and diabetic gastroparesis and diabetic neuropathy did have a history of diabetic foot infection in addition to anxiety bipolar depression patient was brought into the hospital as the patient was noticed to have elevated blood sugar patient has been feeling nauseated and vomiting and complaining of generalized body aches patient has been diagnosed with DKA and is being treated appropriately patient did have a CT of the chest abdominal pelvis with no acute finding except thickened esophagus and the patient was noticed to have elevated white count probably this infectious disease consultation. On today's evaluation that is 09/09/2022 patient remains to be afebrile, the patient is breathing comfortably on room air, the patient denies any chest pain or shortness of breath and no significant cough , the patient denies any further nausea vomiting some vague abdominal pain and no diarrhea has been reported Patient did have a white count of 7.6 with no left shift as of 09/07/2022, no CBC has been done since then, Objective - Vital Signs Vital signs: Vital Signs Temp 97.8 F 09/09/22 11:09 Pulse 112 H 09/09/22 11:09 Resp 18 09/09/22 11:09 BP 106/66 09/09/22 11:09 Pulse Ox 95 09/09/22 11:09 FiO2 100 09/03/22 22:54 Intake & Output 09/08/22 09/09/22 09/09/22 18:59 06:59 18:59 Intake Total 1157 240 Output Total 550 600 900 Balance 607 600 -378 Weight 67.132 kg Intake: Oral 1157 240 Output: Urine 550 600 900 Other: Voiding Method Toilet Urinal # Voids 1 - Exam GENERAL DESCRIPTION: Middle-aged male lying in bed in no distress RESPIRATORY SYSTEM: Unlabored breathing , decreased breath sounds at bases HEART: S1 S2 regular rate and rhythm , ABDOMEN: Soft , no tenderness EXTREMITIES: No edema feet - Labs CBC & Chem 7: 09/10/22 06:27 09/10/22 14:15 Labs: Abnormal Lab Results - Last 24 Hours (Table) 09/08/22 09/08/22 09/08/22 Range/Units 11:59 16:20 20:21 POC Glucose (mg/dL) 221 H 315 H 313 H (70-110) mg/dL 09/09/22 Range/Units 06:23 POC Glucose (mg/dL) 408 H (70-110) mg/dL Assessment and Plan (1) Esophagitis Current Visit: No Status: Acute Code(s): K20.90 - ESOPHAGITIS, UNSPECIFIED WITHOUT BLEEDING SNOMED Code(s): 15725544 (2) Leukocytosis Current Visit: No Status: Acute Code(s): D72.829 - ELEVATED WHITE BLOOD CELL COUNT, UNSPECIFIED SNOMED Code(s): 715596664 Plan: 1patient with elevated white count in this patient presented to hospital with elevated blood sugar and did have a positive serum acetone more likely related to DKA from hemoconcentration as the patient not running any fever does not look toxic patient did have his CT of the chest abdominal pelvis did not show any acute normality except some thickening of the esophagus with a question of esophagitis. Patient did have a negative UA and evidence of pneumonia on the CT of the chest no evidence of any open wound cellulitis or joint swelling 2-the patient white count is more likely to DKA and the patient white count has normalized without any antibiotic therapy, hence we'll monitor the patient closely off antibiotic 3there was a question of esophagitis possible related to this episodes of vomiting and reflux clinically not behaving as fungal, cannot add Diflucan because of the drug interaction and the patient is refusing nystatin swish and swallow, with a normal white count we will monitor the patient closely off antibiotic and antifungal therapy Dictation was produced using [employer] dictation software. please excuse any grammatical, word or spelling errors. Time with Patient: Less than 30
[2022-09-10] MEDS: LURASIDONE 60 MG TAB PO SCH (16:26)
--- NOTE | 2022-09-10 16:26 | P.PN ---
Subjective Progress Note Date: 09/10/22 Principal diagnosis: Leukocytosis Patient is a 36-year-old male with a past medical history significant for insulin-dependent diabetes mellitus and diabetic gastroparesis and diabetic neuropathy did have a history of diabetic foot infection in addition to anxiety bipolar depression patient was brought into the hospital as the patient was noticed to have elevated blood sugar patient has been feeling nauseated and vomiting and complaining of generalized body aches patient has been diagnosed with DKA and is being treated appropriately patient did have a CT of the chest abdominal pelvis with no acute finding except thickened esophagus and the patient was noticed to have elevated white count probably this infectious disease consultation. On today's evaluation that is 09/10/2022 , the patient remains to be afebrile, the patient started having vomiting and noticed to have elevated blood sugar serum estrone is positive and the patient was transferred to the ICU for DKA also noticed to have a white count 25,000 patient is currently on room air and is hemodynamically stable not requiring any pressor support and no diarrhea has been reported Patient did have a white count of 25.3, BUN of 32 care and is 1.31, serum acetone is positive Objective - Vital Signs Vital signs: Vital Signs Temp 98.1 F 09/10/22 12:00 Pulse 134 H 09/10/22 13:00 Resp 24 09/10/22 13:00 BP 107/67 09/10/22 13:00 Pulse Ox 95 09/10/22 13:00 FiO2 100 09/03/22 22:54 Intake & Output 09/09/22 09/10/22 09/10/22 18:59 06:59 18:59 Intake Total 1260 2700 2427.04 Output Total 1150 450 0 Balance 110 2250 2427.04 Intake: Intake, IV Titration 2427.04 Amount Insulin Regular 100 unit 27.04 In Sodium Chloride 0.9% 100 ml @ 0.1 UNITS/KG/HR 6.78 mls/hr IV .[id number] [facility] Rx#:[id number] Sodium Chloride 0.9% 1, 400 000 ml @ 200 mls/hr IV . Q5H [facility] Rx#:[id number] Sodium Chloride 0.9% 2, 2000 000 ml @ 999 mls/hr IV . Q2H1M ONE Rx#:[id number] Oral 1260 2700 0 Output: Urine 1150 450 0 Other: Voiding Method Toilet Urinal # Voids 1 - Exam GENERAL DESCRIPTION: Middle-aged male lying in bed in no distress RESPIRATORY SYSTEM: Unlabored breathing , decreased breath sounds at bases HEART: S1 S2 regular rate and rhythm , ABDOMEN: Soft , no tenderness EXTREMITIES: No edema feet - Labs CBC & Chem 7: 09/10/22 06:27 09/10/22 14:15 Labs: Abnormal Lab Results - Last 24 Hours (Table) 09/09/22 09/09/22 09/10/22 Range/Units 16:31 19:52 05:57 WBC (3.8-10.6) k/uL Neutrophils # (1.3-7.7) k/uL VBG pH (7.31-7.41) VBG pCO2 (37-51) mmHg VBG HCO3 (24-28) mmol/L Sodium (137-145) mmol/L Potassium (3.5-5.1) mmol/L Chloride (98-107) mmol/L Carbon Dioxide (22-30) mmol/L BUN (9-20) mg/dL Creatinine (0.66-1.25) mg/dL Glucose (74-99) mg/dL POC Glucose (mg/dL) 190 H 319 H >600 H (70-110) mg/dL Phosphorus (2.5-4.5) mg/dL 09/10/22 09/10/22 09/10/22 Range/Units 06:27 06:27 08:43 WBC 25.3 H (3.8-10.6) k/uL Neutrophils # 22.9 H (1.3-7.7) k/uL VBG pH (7.31-7.41) VBG pCO2 (37-51) mmHg VBG HCO3 (24-28) mmol/L Sodium 132 L (137-145) mmol/L Potassium (3.5-5.1) mmol/L Chloride 90 L (98-107) mmol/L Carbon Dioxide 5 L* (22-30) mmol/L BUN (9-20) mg/dL Creatinine 1.28 H (0.66-1.25) mg/dL Glucose 722 H* (74-99) mg/dL POC Glucose (mg/dL) >600 H (70-110) mg/dL Phosphorus (2.5-4.5) mg/dL 09/10/22 09/10/22 09/10/22 Range/Units 08:59 10:00 10:00 WBC (3.8-10.6) k/uL Neutrophils # (1.3-7.7) k/uL VBG pH 7.25 L (7.31-7.41) VBG pCO2 15 L* (37-51) mmHg VBG HCO3 7 L* (24-28) mmol/L Sodium 134 L (137-145) mmol/L Potassium 3.3 L (3.5-5.1) mmol/L Chloride 94 L (98-107) mmol/L Carbon Dioxide <5 L* (22-30) mmol/L BUN 22 H (9-20) mg/dL Creatinine 1.40 H (0.66-1.25) mg/dL Glucose 630 H* (74-99) mg/dL POC Glucose (mg/dL) >600 H (70-110) mg/dL Phosphorus 6.0 H (2.5-4.5) mg/dL 09/10/22 09/10/22 09/10/22 Range/Units 10:01 11:04 11:54 WBC (3.8-10.6) k/uL Neutrophils # (1.3-7.7) k/uL VBG pH (7.31-7.41) VBG pCO2 (37-51) mmHg VBG HCO3 (24-28) mmol/L Sodium (137-145) mmol/L Potassium (3.5-5.1) mmol/L Chloride (98-107) mmol/L Carbon Dioxide (22-30) mmol/L BUN (9-20) mg/dL Creatinine (0.66-1.25) mg/dL Glucose (74-99) mg/dL POC Glucose (mg/dL) 565 H 489 H 364 H (70-110) mg/dL Phosphorus (2.5-4.5) mg/dL 09/10/22 09/10/22 Range/Units 13:15 14:00 WBC (3.8-10.6) k/uL Neutrophils # (1.3-7.7) k/uL VBG pH (7.31-7.41) VBG pCO2 (37-51) mmHg VBG HCO3 (24-28) mmol/L Sodium (137-145) mmol/L Potassium (3.5-5.1) mmol/L Chloride (98-107) mmol/L Carbon Dioxide (22-30) mmol/L BUN (9-20) mg/dL Creatinine (0.66-1.25) mg/dL Glucose (74-99) mg/dL POC Glucose (mg/dL) 272 H 266 H (70-110) mg/dL Phosphorus (2.5-4.5) mg/dL Assessment and Plan (1) Esophagitis Current Visit: No Status: Acute Code(s): K20.90 - ESOPHAGITIS, UNSPECIFIED WITHOUT BLEEDING SNOMED Code(s): 46094581 (2) Leukocytosis Current Visit: No Status: Acute Code(s): D72.829 - ELEVATED WHITE BLOOD CELL COUNT, UNSPECIFIED SNOMED Code(s): 394523519 Plan: 1patient with recurrent leukocytosis more likely related to his DKA as the patient white count initially improved after his DKA resolved now with recurrence of his symptoms especially nausea vomiting and the patient did have a positive serum acetone and white count is up to 25,000 and her likely related DKA underlying infection is less likely but not entirely excluded, patient did have a CT of abdominal pelvis and concern for possible thickening of esophagus questionably related to his recurrent episode of vomiting versus esophagitis patient was started on Diflucan, however the patient is on multiple medication that are interacting with Diflucan and can cause QT prolongation we will discontinue Diflucan and start the patient on Eraxis, we did repeat a blood culture CRP pro-calcitonin and will monitor clinical course closely Dictation was produced using [employer] dictation software. please excuse any grammatical, word or spelling errors. Time with Patient: Less than 30
[2022-09-10 17:06] LABS: Glucose,Whole Blood 196 mg/dL (70-110)
[2022-09-10 17:55] LABS: Glucose,Whole Blood 175 mg/dL (70-110)
[2022-09-10 19:01] LABS: Glucose,Whole Blood 156 mg/dL (70-110)
[2022-09-10 20:01] LABS: Glucose,Whole Blood 131 mg/dL (70-110)
--- NOTE | 2022-09-10 20:07 | PN ---
PROGRESS NOTE Hyponatremia. MMODL / IJN: [id number] /
[2022-09-10] MEDS: MONTELUKAST 10 MG TAB PO SCH (20:09)
[2022-09-10] MEDS: QUEtiapine 25 MG TAB PO SCH (20:09)
[2022-09-10 20:19] LABS: African American GFR (CKD) >90 (>60 ml/min/1.73 sqM); Anion Gap 7 mmol/L; Blood Urea Nitrogen 42 mg/dL (9-20); Calcium 8.4 mg/dL (8.4-10.2); Carbon Dioxide 20 mmol/L (22-30); Chloride 109 mmol/L (98-107); Glucose 138 mg/dL (74-99); Magnesium 1.9 mg/dL (1.6-2.3); Non-African American GFR(CKD) 81 (>60 ml/min/1.73 sqM); Phosphorus 2.2 mg/dL (2.5-4.5); Potassium 3.3 mmol/L (3.5-5.1); Sodium 136 mmol/L (137-145)
[2022-09-10 21:05] LABS: Glucose,Whole Blood 138 mg/dL (70-110)
--- NOTE | 2022-09-10 21:14 | PN ---
PROGRESS NOTE He went back into diabetic ketoacidosis with darkened emesis. He was transferred down to the ICU. His pulse is 120s to 130s, temperature 98, respiratory rate 22 to 34, blood pressure 107/67, O2 is 97%. PH 7.25, pCO2 is 15, bicarb is 7. Sodium 134, potassium 3.3, BUN is 22, creatinine 1.40, glucose 630. Cardiovascular, S1, S2. Sleepy, lethargic. Hematology, negative Homans. GI, mild tenderness, diffuse. ASSESSMENT: Diabetic ketoacidosis, dehydration, history of schizoaffective, bipolar, chronic obstructive pulmonary disease, seizures, tachycardia. Get manager of applications development consult. Continue with broad-spectrum antibiotics per Dr. Tafoya. Get GI consult for emesis. Prognosis guarded. Rehydrate. DKA protocol. MMODL / IJN: [id number] /
[2022-09-10 21:59] LABS: Glucose,Whole Blood 148 mg/dL (70-110)
[2022-09-10] MEDS: POTASSIUM CHLORIDE 20 MEQ in WATER FOR INJECTION 1 100ML.BAG IVPB SCH ×2 (22:06→23:59)
[2022-09-10 23:05] LABS: Glucose,Whole Blood 139 mg/dL (70-110)
[2022-09-11 00:08] LABS: Glucose,Whole Blood 136 mg/dL (70-110)
[2022-09-11] MEDS ORDERED: INSULIN NPH 100 UNIT/ML 10 ML VIAL SQ ONE (00:24)
[2022-09-11 01:09] LABS: Glucose,Whole Blood 135 mg/dL (70-110)
[2022-09-11 01:57] LABS: Glucose,Whole Blood 118 mg/dL (70-110)
[2022-09-11] MEDS: INSULIN ASPART (NovoLOG) 100 UNIT/ML VIAL SQ SCH ×8 (02:06→20:43)
[2022-09-11 03:02] LABS: Glucose,Whole Blood 170 mg/dL (70-110)
[2022-09-11] MEDS: METOPROLOL TARTRATE 5 MG/5 ML VIAL IVP SCH ×4 (03:52→20:42)
[2022-09-11] MEDS: HYDROmorphone 0.5 MG/0.5 ML SYRINGE IVP PRN ×6 (03:52→20:42)
[2022-09-11] MEDS: ONDANSETRON 4 MG/2 ML VIAL IVP PRN ×3 (03:52→18:17)
[2022-09-11 04:07] LABS: Glucose,Whole Blood 201 mg/dL (70-110)
[2022-09-11 04:11] LABS: Basophils % (A) 0 %; Eosinophils # (A) 0.1 k/uL (0-0.7); Eosinophils % (A) 0 %; HCT 32.5 % (39.0-53.0); Lymphocytes # (A) 1.1 k/uL (1.0-4.8); Lymphocytes % (A) 5 %; MCH 31.2 pg (25.0-35.0); MCHC 34.6 g/dL (31.0-37.0); MCV 90.3 fL (80.0-100.0); Mean Platelet Volume 7.9; Monocytes % (A) 5 %; Neutrophils # (A) 18.6 k/uL (1.3-7.7); Neutrophils % (A) 88 %; Platelet Count 238 k/uL (150-450); RDW 12.6 % (11.5-15.5); WBC 21.1 k/uL (3.8-10.6)
[2022-09-11 04:14] LABS: HGB 11.2 gm/dL (13.0-17.5)
[2022-09-11 04:15] LABS: ALT 9 U/L (4-49); AST 12 U/L (17-59); African American GFR (CKD) >90 (>60 ml/min/1.73 sqM); Alkaline Phosphatase 83 U/L (38-126); Anion Gap 11 mmol/L; Blood Urea Nitrogen 30 mg/dL (9-20); Calcium 8.3 mg/dL (8.4-10.2); Carbon Dioxide 17 mmol/L (22-30); Chloride 107 mmol/L (98-107); Glucose 186 mg/dL (74-99); Non-African American GFR(CKD) >90 (>60 ml/min/1.73 sqM); Potassium 3.9 mmol/L (3.5-5.1); Sodium 135 mmol/L (137-145); Total Bilirubin 0.3 mg/dL (0.2-1.3); Total Protein 5.2 g/dL (6.3-8.2)
[2022-09-11] MEDS ORDERED: Potassium Replacement Protocol 1 EACH MISC MISCELLANE PRN (04:23)
[2022-09-11] MEDS: SODIUM CHLORIDE 0.9% 1,000 ML IV SCH ×4 (04:33→20:41)
[2022-09-11] MEDS: INSULIN DETEMIR (LEVEMIR) 100 UNIT/ML SYR SQ SCH (04:34)
[2022-09-11] MEDS: POTASSIUM CHLORIDE 10 MEQ in WATER FOR INJECTION 1 100ML.BAG IVPB SCH ×2 (04:34→05:39)
[2022-09-11 05:13] LABS: Glucose,Whole Blood 180 mg/dL (70-110)
[2022-09-11 06:00] LABS: Glucose,Whole Blood 202 mg/dL (70-110)
[2022-09-11 06:53] LABS: Glucose,Whole Blood 199 mg/dL (70-110)
[2022-09-11] MEDS: LURASIDONE 40 MG TAB PO SCH (07:01)
[2022-09-11] MEDS: PANTOPRAZOLE 40 MG/10 ML VIAL IVP SCH ×2 (08:16→20:42)
[2022-09-11] MEDS: QUEtiapine 50 MG TAB PO SCH ×2 (08:16→20:56)
[2022-09-11] MEDS: TRIHEXYPHENIDYL 2 MG TAB PO SCH ×2 (08:16→20:56)
[2022-09-11] MEDS: METOCLOPRAMIDE 5 MG/ML 2 ML VIAL IVP SCH ×2 (08:16→16:17)
[2022-09-11] MEDS: prednisoLONE ACETATE 1% OPHTH DROPS 5 ML BTL RIGHT EYE SCH ×2 (08:17→20:43)
[2022-09-11] MEDS: amLODIPine 5 MG TAB PO SCH ×2 (08:17→20:42)
[2022-09-11] MEDS: lisinopriL 20 MG TAB PO SCH (08:17)
[2022-09-11] MEDS: ATORVASTATIN 10 MG TAB PO SCH (08:17)
[2022-09-11] MEDS: ATROPINE OPHTH SOLN 1% 5ML BTL LEFT EYE SCH ×2 (08:18→20:42)
[2022-09-11] MEDS: IPRATROPIUM-ALBUTEROL 3 ML NEB INHALATION SCH ×4 (08:20→20:04)
[2022-09-11] MEDS: BUDESONIDE 0.5 MG/2 ML NEBU INHALATION SCH ×2 (08:20→20:04)
[2022-09-11] MEDS: LORazepam 2 MG/ML INJ IV PRN (08:33)
[2022-09-11 11:54] LABS: Glucose,Whole Blood 163 mg/dL (70-110)
--- NOTE | 2022-09-11 12:49 | P.PN ---
Subjective Progress Note Date: 09/11/22 CHIEF COMPLAINT: Nausea and vomiting HISTORY OF PRESENT ILLNESS: Patient required transfer to the ICU due to DKA and hematemesis with coffee ground emesis. Per nursing staff patient had an episode of vomiting last night which was bile in color since then no further episodes of emesis. Patient does complain of epigastric pain. He is on Protonix. Hemoglobin is down from 14-11 last EGD 04/13/2022 showing antral gastritis, mild esophagitis and history of hernia PHYSICAL EXAM: VITAL SIGNS: Reviewed. GENERAL: Well-developed in no acute distress. ABDOMEN: Soft. Nondistended. NEUROLOGIC: Alert and oriented. Cranial nerves II through XII grossly intact. ASSESSMENT: 1. Nausea and vomiting and abdominal pain 2. Gastric distention consistent with gastroparesis. Gastric distention not visualized on follow up Xray 3. DKA 4. History of gastritis, esophagitis and hiatal hernia PLAN: -Continue clear liquids -Continue supportive -Continue PPI and antiemetics Physician Bank Officer note has been reviewed by physician. Signing provider agrees with the documented findings, assessment, and plan of care. Objective - Vital Signs Vital signs: Vital Signs Temp 98.2 F 09/11/22 12:00 Pulse 130 H 09/11/22 12:00 Resp 17 09/11/22 12:00 BP 120/80 09/11/22 12:00 Pulse Ox 95 09/11/22 12:00 FiO2 100 09/03/22 22:54 Intake & Output 09/10/22 09/11/22 09/11/22 18:59 06:59 18:59 Intake Total 3667.72 2229.035 825 Output Total 700 1200 1100 Balance 2967.72 1029.035 -275 Weight 66.9 kg 66.9 kg Intake: Intake, IV Titration 3667.72 1729.035 375 Amount Anidulafungin 200 mg In 200 200 Sodium Chloride 0.9% 200 ml @ 84 mls/hr IVPB ONCE ONE Rx#:[id number] D5-0.45% NaCl with KCl 150 1050 20Meq/l 1,000 ml @ 150 mls/hr IV .Q6H40M FELIX Rx# :[id number] D5-0.45% NaCl with KCl 450 20Meq/l 1,000 ml @ 50 mls /hr IV .Q20H [facility] Rx#: [id number] Insulin Regular 100 unit 67.72 79.035 In Sodium Chloride 0.9% 100 ml @ 0.1 UNITS/KG/HR 6.78 mls/hr IV .V25I25H [facility] Rx#:[id number] Potassium Chloride 10 meq 200 In Water For Injection 1 100ml.bag @ 100 mls/hr IVPB Q1H [facility] Rx#: [id number] Potassium Chloride 20 meq 200 In Water For Injection 1 100ml.bag @ 50 mls/hr IVPB Q2H [facility] Rx#: [id number] Sodium Chloride 0.9% 1, 800 375 000 ml @ 125 mls/hr IV . Q8H [facility] Rx#:[id number] Sodium Chloride 0.9% 2, 2000 000 ml @ 999 mls/hr IV . Q2H1M ONE Rx#:[id number] Oral 0 500 450 Output: Urine 700 1200 1100 - Labs CBC & Chem 7: 09/11/22 03:52 09/11/22 03:52 Labs: Abnormal Lab Results - Last 24 Hours (Table) 09/10/22 09/10/22 09/10/22 Range/Units 13:15 14:00 14:15 WBC (3.8-10.6) k/uL RBC (4.30-5.90) m/uL Hgb (13.0-17.5) gm/dL Hct (39.0-53.0) % Neutrophils # (1.3-7.7) k/uL Sodium (137-145) mmol/L Potassium (3.5-5.1) mmol/L Chloride (98-107) mmol/L Carbon Dioxide (22-30) mmol/L BUN (9-20) mg/dL Creatinine (0.66-1.25) mg/dL Glucose (74-99) mg/dL POC Glucose (mg/dL) 272 H 266 H (70-110) mg/dL Calcium (8.4-10.2) mg/dL Phosphorus 1.9 L (2.5-4.5) mg/dL AST (17-59) U/L C-Reactive Protein (<1.0) mg/dL Total Protein (6.3-8.2) g/dL Albumin (3.5-5.0) g/dL Procalcitonin (0.02-0.09) ng/mL 09/10/22 09/10/22 09/10/22 Range/Units 14:15 14:16 15:03 WBC (3.8-10.6) k/uL RBC (4.30-5.90) m/uL Hgb (13.0-17.5) gm/dL Hct (39.0-53.0) % Neutrophils # (1.3-7.7) k/uL Sodium (137-145) mmol/L Potassium 3.3 L (3.5-5.1) mmol/L Chloride (98-107) mmol/L Carbon Dioxide 14 L (22-30) mmol/L BUN 32 H (9-20) mg/dL Creatinine 1.31 H (0.66-1.25) mg/dL Glucose 247 H (74-99) mg/dL POC Glucose (mg/dL) 205 H (70-110) mg/dL Calcium (8.4-10.2) mg/dL Phosphorus (2.5-4.5) mg/dL AST (17-59) U/L C-Reactive Protein 2.4 H (<1.0) mg/dL Total Protein (6.3-8.2) g/dL Albumin (3.5-5.0) g/dL Procalcitonin 5.49 H (0.02-0.09) ng/mL 09/10/22 09/10/22 09/10/22 Range/Units 15:58 17:05 17:54 WBC (3.8-10.6) k/uL RBC (4.30-5.90) m/uL Hgb (13.0-17.5) gm/dL Hct (39.0-53.0) % Neutrophils # (1.3-7.7) k/uL Sodium (137-145) mmol/L Potassium (3.5-5.1) mmol/L Chloride (98-107) mmol/L Carbon Dioxide (22-30) mmol/L BUN (9-20) mg/dL Creatinine (0.66-1.25) mg/dL Glucose (74-99) mg/dL POC Glucose (mg/dL) 192 H 196 H 175 H (70-110) mg/dL Calcium (8.4-10.2) mg/dL Phosphorus (2.5-4.5) mg/dL AST (17-59) U/L C-Reactive Protein (<1.0) mg/dL Total Protein (6.3-8.2) g/dL Albumin (3.5-5.0) g/dL Procalcitonin (0.02-0.09) ng/mL 09/10/22 09/10/22 09/10/22 Range/Units 18:59 19:45 20:00 WBC (3.8-10.6) k/uL RBC (4.30-5.90) m/uL Hgb (13.0-17.5) gm/dL Hct (39.0-53.0) % Neutrophils # (1.3-7.7) k/uL Sodium 136 L (137-145) mmol/L Potassium 3.3 L (3.5-5.1) mmol/L Chloride 109 H (98-107) mmol/L Carbon Dioxide 20 L (22-30) mmol/L BUN 42 H (9-20) mg/dL Creatinine (0.66-1.25) mg/dL Glucose 138 H (74-99) mg/dL POC Glucose (mg/dL) 156 H 131 H (70-110) mg/dL Calcium (8.4-10.2) mg/dL Phosphorus 2.2 L (2.5-4.5) mg/dL AST (17-59) U/L C-Reactive Protein (<1.0) mg/dL Total Protein (6.3-8.2) g/dL Albumin (3.5-5.0) g/dL Procalcitonin (0.02-0.09) ng/mL 09/10/22 09/10/22 09/10/22 Range/Units 21:03 21:57 23:04 WBC (3.8-10.6) k/uL RBC (4.30-5.90) m/uL Hgb (13.0-17.5) gm/dL Hct (39.0-53.0) % Neutrophils # (1.3-7.7) k/uL Sodium (137-145) mmol/L Potassium (3.5-5.1) mmol/L Chloride (98-107) mmol/L Carbon Dioxide (22-30) mmol/L BUN (9-20) mg/dL Creatinine (0.66-1.25) mg/dL Glucose (74-99) mg/dL POC Glucose (mg/dL) 138 H 148 H 139 H (70-110) mg/dL Calcium (8.4-10.2) mg/dL Phosphorus (2.5-4.5) mg/dL AST (17-59) U/L C-Reactive Protein (<1.0) mg/dL Total Protein (6.3-8.2) g/dL Albumin (3.5-5.0) g/dL Procalcitonin (0.02-0.09) ng/mL 09/11/22 09/11/22 09/11/22 Range/Units 00:06 01:08 01:55 WBC (3.8-10.6) k/uL RBC (4.30-5.90) m/uL Hgb (13.0-17.5) gm/dL Hct (39.0-53.0) % Neutrophils # (1.3-7.7) k/uL Sodium (137-145) mmol/L Potassium (3.5-5.1) mmol/L Chloride (98-107) mmol/L Carbon Dioxide (22-30) mmol/L BUN (9-20) mg/dL Creatinine (0.66-1.25) mg/dL Glucose (74-99) mg/dL POC Glucose (mg/dL) 136 H 135 H 118 H (70-110) mg/dL Calcium (8.4-10.2) mg/dL Phosphorus (2.5-4.5) mg/dL AST (17-59) U/L C-Reactive Protein (<1.0) mg/dL Total Protein (6.3-8.2) g/dL Albumin (3.5-5.0) g/dL Procalcitonin (0.02-0.09) ng/mL 09/11/22 09/11/22 09/11/22 Range/Units 03:00 03:52 03:52 WBC 21.1 H (3.8-10.6) k/uL RBC 3.60 L (4.30-5.90) m/uL Hgb 11.2 L D (13.0-17.5) gm/dL Hct 32.5 L (39.0-53.0) % Neutrophils # 18.6 H (1.3-7.7) k/uL Sodium 135 L (137-145) mmol/L Potassium (3.5-5.1) mmol/L Chloride (98-107) mmol/L Carbon Dioxide 17 L (22-30) mmol/L BUN 30 H (9-20) mg/dL Creatinine (0.66-1.25) mg/dL Glucose 186 H (74-99) mg/dL POC Glucose (mg/dL) 170 H (70-110) mg/dL Calcium 8.3 L (8.4-10.2) mg/dL Phosphorus (2.5-4.5) mg/dL AST 12 L (17-59) U/L C-Reactive Protein (<1.0) mg/dL Total Protein 5.2 L (6.3-8.2) g/dL Albumin 3.0 L (3.5-5.0) g/dL Procalcitonin (0.02-0.09) ng/mL 09/11/22 09/11/22 09/11/22 Range/Units 04:04 05:12 05:58 WBC (3.8-10.6) k/uL RBC (4.30-5.90) m/uL Hgb (13.0-17.5) gm/dL Hct (39.0-53.0) % Neutrophils # (1.3-7.7) k/uL Sodium (137-145) mmol/L Potassium (3.5-5.1) mmol/L Chloride (98-107) mmol/L Carbon Dioxide (22-30) mmol/L BUN (9-20) mg/dL Creatinine (0.66-1.25) mg/dL Glucose (74-99) mg/dL POC Glucose (mg/dL) 201 H 180 H 202 H (70-110) mg/dL Calcium (8.4-10.2) mg/dL Phosphorus (2.5-4.5) mg/dL AST (17-59) U/L C-Reactive Protein (<1.0) mg/dL Total Protein (6.3-8.2) g/dL Albumin (3.5-5.0) g/dL Procalcitonin (0.02-0.09) ng/mL 09/11/22 09/11/22 Range/Units 06:52 11:52 WBC (3.8-10.6) k/uL RBC (4.30-5.90) m/uL Hgb (13.0-17.5) gm/dL Hct (39.0-53.0) % Neutrophils # (1.3-7.7) k/uL Sodium (137-145) mmol/L Potassium (3.5-5.1) mmol/L Chloride (98-107) mmol/L Carbon Dioxide (22-30) mmol/L BUN (9-20) mg/dL Creatinine (0.66-1.25) mg/dL Glucose (74-99) mg/dL POC Glucose (mg/dL) 199 H 163 H (70-110) mg/dL Calcium (8.4-10.2) mg/dL Phosphorus (2.5-4.5) mg/dL AST (17-59) U/L C-Reactive Protein (<1.0) mg/dL Total Protein (6.3-8.2) g/dL Albumin (3.5-5.0) g/dL Procalcitonin (0.02-0.09) ng/mL
--- NOTE | 2022-09-11 14:11 | P.PN ---
Subjective Progress Note Date: 09/11/22 Principal diagnosis: Acute DKA 36-year-old male patient, type 1 diabetes mellitus, got transferred to the intensive care unit as the patient's wound back into DKA based on morning labs. Noted the patient has type 1 diabetes mellitus and initially presented to the hospital because of DKA and his initial admission was back in 09/03/2022. He was treated by Dr. Dickerson and Dr. Mendoza, nevertheless, his blood sugars continued to be elevated and earlier this morning, the patient bounced back into DKA. Currently, he seems to be dehydrated. Most recent blood sugar is elevated and his blood sugar has been running high above 700. His serum bicarb is less than 5 and his anion gap is currently at 37. BUN is 15 and the patient is also sustained an acute kidney injury with a creatinine of 1.28. His white cell count is at 25 with a hemoglobin of 14.7 and a platelet count of 346. Based on that, the patient was restarted back on insulin drip which is currently running at 6 units an hour. We are trying to establish IV access to start resuscitating this patient with IV fluids and insulin drip. He is lethargic, encephalopathic, dehydrated, and he has been having emesis coffee-ground. No melanotic stools. The patient's echocardiogram shows an ejection fraction of 55-60%. He does have advanced diabetic gastroparesis, hypertensive heart disease and hyperlipidemia. Reevaluated today on 09/11/2022, patient continues to have intermittent episodes of vomiting and coffee-ground emesis. Hemoglobin is down to 11.2 today, it was 12.4 on 09/07/2022, patient continues to have a bit of leukocytosis, his electrolytes are normal and his anion gap is down to 11 renal functioning is normal. Bicarb remains a bit low at 17 however his anion gap is 11. Patient is on Protonix, is being followed by surgery regarding his coffee-ground emesis and his nausea vomiting and abdominal pain. Patient was felt to have gastric distention consistent with gastroparesis and he does have hiatal hernia as well as esophagitis, recommendation is to continue clear liquids, supportive care measures and PPI as well as antiemetics. EGD on this patient done on showed previous history of gastritis esophagitis and history of hernia Objective - Vital Signs Vital signs: Vital Signs Temp 98.2 F 08/07/23 12:00 Pulse 118 H 09/11/22 13:00 Resp 15 09/11/22 13:00 BP 173/102 09/11/22 13:00 Pulse Ox 93 L 09/11/22 13:00 FiO2 100 09/03/22 22:54 Intake & Output 09/10/22 09/11/22 09/11/22 18:59 06:59 18:59 Intake Total 3667.72 2229.035 950 Output Total 700 1200 1100 Balance 2967.72 1029.035 -150 Weight 66.9 kg 66.9 kg Intake: Intake, IV Titration 3667.72 1729.035 500 Amount Anidulafungin 200 mg In 200 200 Sodium Chloride 0.9% 200 ml @ 84 mls/hr IVPB ONCE ONE Rx#:[id number] D5-0.45% NaCl with KCl 150 1050 20Meq/l 1,000 ml @ 150 mls/hr IV .Q6H40M [facility]ELIX Rx# :[id number] D5-0.45% NaCl with KCl 450 20Meq/l 1,000 ml @ 50 mls /hr IV .Q20H FELIX Rx#: [id number] Insulin Regular 100 unit 67.72 79.035 In Sodium Chloride 0.9% 100 ml @ 0.1 UNITS/KG/HR 6.78 mls/hr IV .[id number] FELIX Rx#:[id number] Potassium Chloride 10 meq 200 In Water For Injection 1 100ml.bag @ 100 mls/hr IVPB Q1H FELIX Rx#: [id number] Potassium Chloride 20 meq 200 In Water For Injection 1 100ml.bag @ 50 mls/hr IVPB Q2H FELIX Rx#: [id number] Sodium Chloride 0.9% 1, 800 500 000 ml @ 125 mls/hr IV . Q8H FELIX Rx#:[id number] Sodium Chloride 0.9% 2, 2000 000 ml @ 999 mls/hr IV . Q2H1M ONE Rx#:[id number] Oral 0 500 450 Output: Urine 700 1200 1100 - Exam Physical Exam: Revealed 37-year-old white male in no distress Head: Atraumatic normocephalic HEENT:[Neck is supple.] [No neck masses.] [No thyromegaly.] [No JVD.] Chest: [Clear throughout, no crackles, no rhonchi, no wheezes.] Cardiac Exam: [Normal S1 and S2, no S3 gallop, no murmur.] Abdomen: [Soft, nontender, no megaly, no rebound, no guarding, normal bowel sounds.] Extremities: [No clubbing, no edema, no cyanosis.] Neurological Exam: [No focal neurologic deficit.] Alert and oriented 3 Psychiatric: Normal mood affect and normal mental status examination. Skin: No rashes. - Labs CBC & Chem 7: 09/11/22 03:52 09/11/22 03:52 Labs: Abnormal Lab Results - Last 24 Hours (Table) 09/10/22 09/10/22 09/10/22 Range/Units 14:15 14:15 14:16 WBC (3.8-10.6) k/uL RBC (4.30-5.90) m/uL Hgb (13.0-17.5) gm/dL Hct (39.0-53.0) % Neutrophils # (1.3-7.7) k/uL Sodium (137-145) mmol/L Potassium 3.3 L (3.5-5.1) mmol/L Chloride (98-107) mmol/L Carbon Dioxide 14 L (22-30) mmol/L BUN 32 H (9-20) mg/dL Creatinine 1.31 H (0.66-1.25) mg/dL Glucose 247 H (74-99) mg/dL POC Glucose (mg/dL) (70-110) mg/dL Calcium (8.4-10.2) mg/dL Phosphorus 1.9 L (2.5-4.5) mg/dL AST (17-59) U/L C-Reactive Protein 2.4 H (<1.0) mg/dL Total Protein (6.3-8.2) g/dL Albumin (3.5-5.0) g/dL Procalcitonin 5.49 H (0.02-0.09) ng/mL 09/10/22 09/10/22 09/10/22 Range/Units 15:03 15:58 17:05 WBC (3.8-10.6) k/uL RBC (4.30-5.90) m/uL Hgb (13.0-17.5) gm/dL Hct (39.0-53.0) % Neutrophils # (1.3-7.7) k/uL Sodium (137-145) mmol/L Potassium (3.5-5.1) mmol/L Chloride (98-107) mmol/L Carbon Dioxide (22-30) mmol/L BUN (9-20) mg/dL Creatinine (0.66-1.25) mg/dL Glucose (74-99) mg/dL POC Glucose (mg/dL) 205 H 192 H 196 H (70-110) mg/dL Calcium (8.4-10.2) mg/dL Phosphorus (2.5-4.5) mg/dL AST (17-59) U/L C-Reactive Protein (<1.0) mg/dL Total Protein (6.3-8.2) g/dL Albumin (3.5-5.0) g/dL Procalcitonin (0.02-0.09) ng/mL 09/10/22 09/10/22 09/10/22 Range/Units 17:54 18:59 19:45 WBC (3.8-10.6) k/uL RBC (4.30-5.90) m/uL Hgb (13.0-17.5) gm/dL Hct (39.0-53.0) % Neutrophils # (1.3-7.7) k/uL Sodium 136 L (137-145) mmol/L Potassium 3.3 L (3.5-5.1) mmol/L Chloride 109 H (98-107) mmol/L Carbon Dioxide 20 L (22-30) mmol/L BUN 42 H (9-20) mg/dL Creatinine (0.66-1.25) mg/dL Glucose 138 H (74-99) mg/dL POC Glucose (mg/dL) 175 H 156 H (70-110) mg/dL Calcium (8.4-10.2) mg/dL Phosphorus 2.2 L (2.5-4.5) mg/dL AST (17-59) U/L C-Reactive Protein (<1.0) mg/dL Total Protein (6.3-8.2) g/dL Albumin (3.5-5.0) g/dL Procalcitonin (0.02-0.09) ng/mL 09/10/22 09/10/22 09/10/22 Range/Units 20:00 21:03 21:57 WBC (3.8-10.6) k/uL RBC (4.30-5.90) m/uL Hgb (13.0-17.5) gm/dL Hct (39.0-53.0) % Neutrophils # (1.3-7.7) k/uL Sodium (137-145) mmol/L Potassium (3.5-5.1) mmol/L Chloride (98-107) mmol/L Carbon Dioxide (22-30) mmol/L BUN (9-20) mg/dL Creatinine (0.66-1.25) mg/dL Glucose (74-99) mg/dL POC Glucose (mg/dL) 131 H 138 H 148 H (70-110) mg/dL Calcium (8.4-10.2) mg/dL Phosphorus (2.5-4.5) mg/dL AST (17-59) U/L C-Reactive Protein (<1.0) mg/dL Total Protein (6.3-8.2) g/dL Albumin (3.5-5.0) g/dL Procalcitonin (0.02-0.09) ng/mL 09/10/22 09/11/22 09/11/22 Range/Units 23:04 00:06 01:08 WBC (3.8-10.6) k/uL RBC (4.30-5.90) m/uL Hgb (13.0-17.5) gm/dL Hct (39.0-53.0) % Neutrophils # (1.3-7.7) k/uL Sodium (137-145) mmol/L Potassium (3.5-5.1) mmol/L Chloride (98-107) mmol/L Carbon Dioxide (22-30) mmol/L BUN (9-20) mg/dL Creatinine (0.66-1.25) mg/dL Glucose (74-99) mg/dL POC Glucose (mg/dL) 139 H 136 H 135 H (70-110) mg/dL Calcium (8.4-10.2) mg/dL Phosphorus (2.5-4.5) mg/dL AST (17-59) U/L C-Reactive Protein (<1.0) mg/dL Total Protein (6.3-8.2) g/dL Albumin (3.5-5.0) g/dL Procalcitonin (0.02-0.09) ng/mL 09/11/22 09/11/22 09/11/22 Range/Units 01:55 03:00 03:52 WBC 21.1 H (3.8-10.6) k/uL RBC 3.60 L (4.30-5.90) m/uL Hgb 11.2 L D (13.0-17.5) gm/dL Hct 32.5 L (39.0-53.0) % Neutrophils # 18.6 H (1.3-7.7) k/uL Sodium (137-145) mmol/L Potassium (3.5-5.1) mmol/L Chloride (98-107) mmol/L Carbon Dioxide (22-30) mmol/L BUN (9-20) mg/dL Creatinine (0.66-1.25) mg/dL Glucose (74-99) mg/dL POC Glucose (mg/dL) 118 H 170 H (70-110) mg/dL Calcium (8.4-10.2) mg/dL Phosphorus (2.5-4.5) mg/dL AST (17-59) U/L C-Reactive Protein (<1.0) mg/dL Total Protein (6.3-8.2) g/dL Albumin (3.5-5.0) g/dL Procalcitonin (0.02-0.09) ng/mL 09/11/22 09/11/22 09/11/22 Range/Units 03:52 04:04 05:12 WBC (3.8-10.6) k/uL RBC (4.30-5.90) m/uL Hgb (13.0-17.5) gm/dL Hct (39.0-53.0) % Neutrophils # (1.3-7.7) k/uL Sodium 135 L (137-145) mmol/L Potassium (3.5-5.1) mmol/L Chloride (98-107) mmol/L Carbon Dioxide 17 L (22-30) mmol/L BUN 30 H (9-20) mg/dL Creatinine (0.66-1.25) mg/dL Glucose 186 H (74-99) mg/dL POC Glucose (mg/dL) 201 H 180 H (70-110) mg/dL Calcium 8.3 L (8.4-10.2) mg/dL Phosphorus (2.5-4.5) mg/dL AST 12 L (17-59) U/L C-Reactive Protein (<1.0) mg/dL Total Protein 5.2 L (6.3-8.2) g/dL Albumin 3.0 L (3.5-5.0) g/dL Procalcitonin (0.02-0.09) ng/mL 09/11/22 09/11/22 09/11/22 Range/Units 05:58 06:52 11:52 WBC (3.8-10.6) k/uL RBC (4.30-5.90) m/uL Hgb (13.0-17.5) gm/dL Hct (39.0-53.0) % Neutrophils # (1.3-7.7) k/uL Sodium (137-145) mmol/L Potassium (3.5-5.1) mmol/L Chloride (98-107) mmol/L Carbon Dioxide (22-30) mmol/L BUN (9-20) mg/dL Creatinine (0.66-1.25) mg/dL Glucose (74-99) mg/dL POC Glucose (mg/dL) 202 H 199 H 163 H (70-110) mg/dL Calcium (8.4-10.2) mg/dL Phosphorus (2.5-4.5) mg/dL AST (17-59) U/L C-Reactive Protein (<1.0) mg/dL Total Protein (6.3-8.2) g/dL Albumin (3.5-5.0) g/dL Procalcitonin (0.02-0.09) ng/mL Assessment and Plan Assessment: Impression: Acute DKA Acute anion gap is embolic acidosis Severe dehydration Acute kidney injury secondary to above Acute metabolic encephalopathy Type 1 diabetes Diabetic gastroparesis Diabetic neuropathy Coffee-ground emesis with possible underlying peptic ulcer disease or gastritis/esophagitis Benign essential hypertension Recommendation: Continue to monitor the patient in the ICU Continue IV fluids Continue to follow the DKA protocol Surgery is addressing his emesis and his drop in hemoglobin Continue IV Protonix We will continue to follow Time with Patient: Less than 30
--- NOTE | 2022-09-11 16:13 | P.PN ---
Subjective Progress Note Date: 09/11/22 Subjective: No acute overnight events Summary: Patient is a 37-year-old who was admitted with diabetic ketoacidosis. Cardiology was consult for persistent sinus tachycardia Physical examination General: Alert and oriented Cardiac: S1 and S2 audible, regular rate and rhythm, no murmurs appreciated Respiratory: Diminished air entry in bilateral lung bases, no wheezing or rhonchi Extremity: No pedal edema in bilateral lower extremity Neurological: No focal neurological deficit Assessment 1 sinus tachycardia 2 diabetic ketoacidosis 3. Dyslipidemia Plan Continue metoprolol 50 mg twice a day Patient's echocardiogram showed normal LV size and systolic function. Continue to monitor telemetry Objective - Vital Signs Vital signs: Vital Signs Temp 98.2 F 09/11/22 12:00 Pulse 120 H 09/11/22 15:00 Resp 15 09/11/22 15:00 BP 140/87 09/11/22 15:00 Pulse Ox 94 L 09/11/22 15:00 FiO2 100 09/03/22 22:54 Intake & Output 09/10/22 09/11/22 09/11/22 18:59 06:59 18:59 Intake Total 3667.72 2229.035 2100 Output Total 700 1200 1100 Balance 2967.72 7329.270 0127 Weight 66.9 kg 66.9 kg Intake: Intake, IV Titration 3667.72 1729.035 750 Amount Anidulafungin 200 mg In 200 200 Sodium Chloride 0.9% 200 ml @ 84 mls/hr IVPB ONCE ONE Rx#:[id number] D5-0.45% NaCl with KCl 150 1050 20Meq/l 1,000 ml @ 150 mls/hr IV .Q6H40M [facility]IX Rx# :[id number] D5-0.45% NaCl with KCl 450 20Meq/l 1,000 ml @ 50 mls /hr IV .Q20H FELIX Rx#: [id number] Insulin Regular 100 unit 67.72 79.035 In Sodium Chloride 0.9% 100 ml @ 0.1 UNITS/KG/HR 6.78 mls/hr IV .[id number] FELIX Rx#:[id number] Potassium Chloride 10 meq 200 In Water For Injection 1 100ml.bag @ 100 mls/hr IVPB Q1H [facility]IX Rx#: [id number] Potassium Chloride 20 meq 200 In Water For Injection 1 100ml.bag @ 50 mls/hr IVPB Q2H [facility]ELIX Rx#: [id number] Sodium Chloride 0.9% 1, 800 750 000 ml @ 125 mls/hr IV . Q8H [facility]ELIX Rx#:[id number] Sodium Chloride 0.9% 2, 2000 000 ml @ 999 mls/hr IV . Q2H1M ONE Rx#:[id number] Oral 0 500 1350 Output: Urine 700 1200 1100 - Labs CBC & Chem 7: 09/11/22 03:52 09/11/22 03:52 Labs: Abnormal Lab Results - Last 24 Hours (Table) 09/10/22 09/10/22 09/10/22 Range/Units 14:16 17:05 17:54 WBC (3.8-10.6) k/uL RBC (4.30-5.90) m/uL Hgb (13.0-17.5) gm/dL Hct (39.0-53.0) % Neutrophils # (1.3-7.7) k/uL Sodium (137-145) mmol/L Potassium (3.5-5.1) mmol/L Chloride (98-107) mmol/L Carbon Dioxide (22-30) mmol/L BUN (9-20) mg/dL Glucose (74-99) mg/dL POC Glucose (mg/dL) 196 H 175 H (70-110) mg/dL Calcium (8.4-10.2) mg/dL Phosphorus (2.5-4.5) mg/dL AST (17-59) U/L Total Protein (6.3-8.2) g/dL Albumin (3.5-5.0) g/dL Procalcitonin 5.49 H (0.02-0.09) ng/mL 09/10/22 09/10/22 09/10/22 Range/Units 18:59 19:45 20:00 WBC (3.8-10.6) k/uL RBC (4.30-5.90) m/uL Hgb (13.0-17.5) gm/dL Hct (39.0-53.0) % Neutrophils # (1.3-7.7) k/uL Sodium 136 L (137-145) mmol/L Potassium 3.3 L (3.5-5.1) mmol/L Chloride 109 H (98-107) mmol/L Carbon Dioxide 20 L (22-30) mmol/L BUN 42 H (9-20) mg/dL Glucose 138 H (74-99) mg/dL POC Glucose (mg/dL) 156 H 131 H (70-110) mg/dL Calcium (8.4-10.2) mg/dL Phosphorus 2.2 L (2.5-4.5) mg/dL AST (17-59) U/L Total Protein (6.3-8.2) g/dL Albumin (3.5-5.0) g/dL Procalcitonin (0.02-0.09) ng/mL 09/10/22 09/10/22 09/10/22 Range/Units 21:03 21:57 23:04 WBC (3.8-10.6) k/uL RBC (4.30-5.90) m/uL Hgb (13.0-17.5) gm/dL Hct (39.0-53.0) % Neutrophils # (1.3-7.7) k/uL Sodium (137-145) mmol/L Potassium (3.5-5.1) mmol/L Chloride (98-107) mmol/L Carbon Dioxide (22-30) mmol/L BUN (9-20) mg/dL Glucose (74-99) mg/dL POC Glucose (mg/dL) 138 H 148 H 139 H (70-110) mg/dL Calcium (8.4-10.2) mg/dL Phosphorus (2.5-4.5) mg/dL AST (17-59) U/L Total Protein (6.3-8.2) g/dL Albumin (3.5-5.0) g/dL Procalcitonin (0.02-0.09) ng/mL 09/11/22 09/11/22 09/11/22 Range/Units 00:06 01:08 01:55 WBC (3.8-10.6) k/uL RBC (4.30-5.90) m/uL Hgb (13.0-17.5) gm/dL Hct (39.0-53.0) % Neutrophils # (1.3-7.7) k/uL Sodium (137-145) mmol/L Potassium (3.5-5.1) mmol/L Chloride (98-107) mmol/L Carbon Dioxide (22-30) mmol/L BUN (9-20) mg/dL Glucose (74-99) mg/dL POC Glucose (mg/dL) 136 H 135 H 118 H (70-110) mg/dL Calcium (8.4-10.2) mg/dL Phosphorus (2.5-4.5) mg/dL AST (17-59) U/L Total Protein (6.3-8.2) g/dL Albumin (3.5-5.0) g/dL Procalcitonin (0.02-0.09) ng/mL 09/11/22 09/11/22 09/11/22 Range/Units 03:00 03:52 03:52 WBC 21.1 H (3.8-10.6) k/uL RBC 3.60 L (4.30-5.90) m/uL Hgb 11.2 L D (13.0-17.5) gm/dL Hct 32.5 L (39.0-53.0) % Neutrophils # 18.6 H (1.3-7.7) k/uL Sodium 135 L (137-145) mmol/L Potassium (3.5-5.1) mmol/L Chloride (98-107) mmol/L Carbon Dioxide 17 L (22-30) mmol/L BUN 30 H (9-20) mg/dL Glucose 186 H (74-99) mg/dL POC Glucose (mg/dL) 170 H (70-110) mg/dL Calcium 8.3 L (8.4-10.2) mg/dL Phosphorus (2.5-4.5) mg/dL AST 12 L (17-59) U/L Total Protein 5.2 L (6.3-8.2) g/dL Albumin 3.0 L (3.5-5.0) g/dL Procalcitonin (0.02-0.09) ng/mL 09/11/22 09/11/22 09/11/22 Range/Units 04:04 05:12 05:58 WBC (3.8-10.6) k/uL RBC (4.30-5.90) m/uL Hgb (13.0-17.5) gm/dL Hct (39.0-53.0) % Neutrophils # (1.3-7.7) k/uL Sodium (137-145) mmol/L Potassium (3.5-5.1) mmol/L Chloride (98-107) mmol/L Carbon Dioxide (22-30) mmol/L BUN (9-20) mg/dL Glucose (74-99) mg/dL POC Glucose (mg/dL) 201 H 180 H 202 H (70-110) mg/dL Calcium (8.4-10.2) mg/dL Phosphorus (2.5-4.5) mg/dL AST (17-59) U/L Total Protein (6.3-8.2) g/dL Albumin (3.5-5.0) g/dL Procalcitonin (0.02-0.09) ng/mL 09/11/22 09/11/22 Range/Units 06:52 11:52 WBC (3.8-10.6) k/uL RBC (4.30-5.90) m/uL Hgb (13.0-17.5) gm/dL Hct (39.0-53.0) % Neutrophils # (1.3-7.7) k/uL Sodium (137-145) mmol/L Potassium (3.5-5.1) mmol/L Chloride (98-107) mmol/L Carbon Dioxide (22-30) mmol/L BUN (9-20) mg/dL Glucose (74-99) mg/dL POC Glucose (mg/dL) 199 H 163 H (70-110) mg/dL Calcium (8.4-10.2) mg/dL Phosphorus (2.5-4.5) mg/dL AST (17-59) U/L Total Protein (6.3-8.2) g/dL Albumin (3.5-5.0) g/dL Procalcitonin (0.02-0.09) ng/mL
[2022-09-11] MEDS: ANIDULAFUNGIN 100 MG in SODIUM CHLORIDE 0.9% 100 ML IVPB SCH (16:18)
[2022-09-11 16:51] LABS: Glucose,Whole Blood 78 mg/dL (70-110)
[2022-09-11] MEDS: LURASIDONE 60 MG TAB PO SCH (18:18)
[2022-09-11 20:25] LABS: Glucose,Whole Blood 74 mg/dL (70-110)
[2022-09-11] MEDS: MONTELUKAST 10 MG TAB PO SCH (20:42)
[2022-09-11] MEDS: QUEtiapine 25 MG TAB PO SCH (20:56)
[2022-09-11 21:54] LABS: Glucose,Whole Blood 104 mg/dL (70-110)
[2022-09-11 22:18] LABS: Glucose,Whole Blood 104 mg/dL (70-110)
[2022-09-12] MEDS: METOCLOPRAMIDE 5 MG/ML 2 ML VIAL IVP SCH ×4 (00:17→23:57)
[2022-09-12] MEDS: cloNIDine 0.2 MG/24HR PATCH TRANSDERM SCH (00:18)
[2022-09-12] MEDS: HYDROmorphone 0.5 MG/0.5 ML SYRINGE IVP PRN ×6 (00:18→20:48)
[2022-09-12 02:42] LABS: Glucose,Whole Blood 118 mg/dL (70-110)
[2022-09-12] MEDS: METOPROLOL TARTRATE 5 MG/5 ML VIAL IVP SCH ×2 (02:51→08:37)
[2022-09-12] MEDS: INSULIN ASPART (NovoLOG) 100 UNIT/ML VIAL SQ SCH ×8 (02:51→20:36)
[2022-09-12 03:48] LABS: Basophils % (A) 0 %; Eosinophils % (A) 0 %; HCT 28.3 % (39.0-53.0); Lymphocytes # (A) 2.2 k/uL (1.0-4.8); Lymphocytes % (A) 25 %; MCH 31.4 pg (25.0-35.0); MCHC 35.3 g/dL (31.0-37.0); Mean Platelet Volume 7.5; Monocytes # (A) 0.5 k/uL (0-1.0); Monocytes % (A) 6 %; Neutrophils # (A) 5.9 k/uL (1.3-7.7); Neutrophils % (A) 67 %; Platelet Count 207 k/uL (150-450); RBC 3.18 m/uL (4.30-5.90); RDW 12.9 % (11.5-15.5); WBC 8.8 k/uL (3.8-10.6)
[2022-09-12 03:57] LABS: ALT 10 U/L (4-49); AST 15 U/L (17-59); African American GFR (CKD) >90 (>60 ml/min/1.73 sqM); Albumin 2.7 g/dL (3.5-5.0); Alkaline Phosphatase 75 U/L (38-126); Anion Gap 5 mmol/L; Blood Urea Nitrogen 7 mg/dL (9-20); Carbon Dioxide 25 mmol/L (22-30); Chloride 104 mmol/L (98-107); Glucose 115 mg/dL (74-99); Non-African American GFR(CKD) >90 (>60 ml/min/1.73 sqM); Potassium 2.9 mmol/L (3.5-5.1); Sodium 134 mmol/L (137-145); Total Bilirubin 0.3 mg/dL (0.2-1.3)
[2022-09-12] MEDS ORDERED: Potassium Replacement Protocol 1 EACH MISC MISCELLANE PRN ×2 (03:59→23:40)
[2022-09-12] MEDS: SODIUM CHLORIDE 0.9% 1,000 ML IV SCH ×3 (04:12→23:56)
[2022-09-12] MEDS: POTASSIUM CHLORIDE 20 MEQ in WATER FOR INJECTION 1 100ML.BAG IVPB SCH ×3 (04:12→08:38)
[2022-09-12] MEDS: INSULIN DETEMIR (LEVEMIR) 100 UNIT/ML SYR SQ SCH (06:14)
[2022-09-12 06:18] LABS: Glucose,Whole Blood 176 mg/dL (70-110)
[2022-09-12] MEDS: LURASIDONE 40 MG TAB PO SCH (06:54)
--- NOTE | 2022-09-12 07:50 | PN ---
PROGRESS NOTE SUBJECTIVE: A 37-year-old white male, remains in the ICU. Pulmonology and Cardiology have seen him. Episodes of vomiting coffee-ground emesis. Hemoglobin is down to 11.2 12.4 a couple of days ago. Leukocytosis. Electrolytes . Anion gap is down to 11. Renal function is normal. Bicarb remains low at 17. Anion gap is 11. Some Protonix. Surgery for coffee-ground emesis. Gastric gastroparesis. He has hiatal hernia and esophagitis. Clear liquids, PPI, and antiemetics. EGD was done on 04/13/2022. OBJECTIVE: VITAL SIGNS: Reviewed; pulse is about 118, respiratory rate 16 to 18, temperature 98.2, blood pressure 150s to 170s over 100, and O2 is 93 on room air. GENERAL: He is giving appropriate answers. He says a lot of abdominal pain. HEART: S1 and S2. ABDOMEN: Soft. Normal bowel sounds. NEUROLOGIC: Alert and oriented x3. PSYCHIATRIC: Fair mood and affect. SKIN: No rashes. LABORATORY DATA: White count is 21.1, slightly improved; hemoglobin 11.2, down. Sodium 135, potassium 3.9, BUN 30, and creatinine 0.99. ASSESSMENT AND PLAN: He is on potassium replacement protocol. Dr. Tafoya saw him. Leukocytosis secondary to diabetic ketoacidosis and gastrointestinal pain. He has acute diabetic ketoacidosis and anion gap acidosis, severe dehydration, acute kidney injury, metabolic encephalopathy, type 1 diabetes, gastroparesis with a gastric pump in place, diabetic neuropathy, coffee-ground emesis, hypertension, and a history of esophagitis due to a fungal infection. Dr. Tafoya talked to him. We started for fungal infection, is probably what he has problem. Continue IV fluids. Diabetic ketoacidosis protocol. Monitor hemoglobin. IV for possible fungal infection. Prognosis is guarded. Please see further orders. MMODL / IJN: [id number] /
[2022-09-12] MEDS: IPRATROPIUM-ALBUTEROL 3 ML NEB INHALATION SCH ×4 (08:12→20:30)
[2022-09-12] MEDS: BUDESONIDE 0.5 MG/2 ML NEBU INHALATION SCH ×2 (08:12→20:30)
[2022-09-12] MEDS: PANTOPRAZOLE 40 MG/10 ML VIAL IVP SCH ×2 (08:37→20:35)
[2022-09-12] MEDS: amLODIPine 5 MG TAB PO SCH ×2 (08:37→20:35)
[2022-09-12] MEDS: QUEtiapine 50 MG TAB PO SCH ×2 (08:37→20:37)
[2022-09-12] MEDS: lisinopriL 20 MG TAB PO SCH (08:37)
[2022-09-12] MEDS: ATORVASTATIN 10 MG TAB PO SCH (08:37)
[2022-09-12] MEDS: TRIHEXYPHENIDYL 2 MG TAB PO SCH ×2 (08:40→20:38)
[2022-09-12] MEDS: ATROPINE OPHTH SOLN 1% 5ML BTL LEFT EYE SCH ×2 (08:41→20:39)
[2022-09-12] MEDS: prednisoLONE ACETATE 1% OPHTH DROPS 5 ML BTL RIGHT EYE SCH ×2 (08:41→20:39)
--- NOTE | 2022-09-12 10:27 | CDI ---
Documentation Clarification Form Date: 09/12/2022 09:54:34 AM From: Cynthia Bruce RN, CCDS Email: [email or web address] Admit Date: 09/03/2022 06:13:00 PM Patient Name: Tani Slater Visit Number: [id number] Discharge Date: ATTENTION: The Clinical Documentation Specialists (CDI) and [facility] Coding Staff appreciate your assistance in clarifying documentation. Please respond to the clarification below the line at the bottom and electronically sign. The CDI & [facility] Coding staff will review the response and follow-up if needed. Please note: Queries are made part of the Legal Health Record. If you have any questions, please contact the author of this message via ITS. Dr. Wisam Vickers Acute kidney injury is documented starting 09/10. For each diagnosis, documentation must be clear to determine if the condition was present at the time of the patients inpatient admission or developed during the hospital stay. Additional clarification regarding acute kidney injury is requested. History/Risk Factors: Type I DM, gastroparesis. Admitted on 09/03 with DKA. Clinical Indicators: 09/03 BUN/Cr/GFR: 21/1.84/53 09/04 BUN/CR/GFR: 18/1.20/>90 09/05 BUN/Cr/GFR: 11/0.90/>90 09/06 BUN/Cr/GFR: 14/0.87/>90 09/07 BUN/Cr/GFR: 13/0.86/>90 09/10 BUN/Cr/GFR: 42/1.40/82 09/10 IM: "He has acute diabetic ketoacidosis and anion gap acidosis, severe dehydration, acute kidney injury." Treatment: Monitor daily labs. DKA protocol 0.9 NS 1L IV bolus on 09/03 and 09/10 0.9 NS @200ml/hr 09/03-09/06 0.9NS @ 125ml/hr 09/10-current Definition of Present on Admission (POA): A diagnosis present at the time the order for admission to inpatient status was written. Please clarify if Acute kidney injury was POA: [ ] Y = Yes, the condition was present at the time of the order for inpatient admission. [ ] N = No, the condition was not present at the time of the order for inpatient admission. [ ] W = Clinically undetermined if the condition was present at the time of the order for inpatient admission. MTDD
--- NOTE | 2022-09-12 11:06 | CDI ---
Documentation Clarification Form Date: 09/12/2022 10:27:45 AM From: Cynthia Bruce RN, CCDS Email: [email or web address] Admit Date: 09/03/2022 06:13:00 PM Patient Name: Tani Slater Visit Number: [id number] Discharge Date: ATTENTION: The Clinical Documentation Specialists (CDI) and [facility] Coding Staff appreciate your assistance in clarifying documentation. Please respond to the clarification below the line at the bottom and electronically sign. The CDI & [facility] Coding staff will review the response and follow-up if needed. Please note: Queries are made part of the Legal Health Record. If you have any questions, please contact the author of this message via ITS. Dr. Wisam Vickers Your patient has DKA, metabolic encephalopathy, acute kidney injury and meets SIRS criteria. Based on this information and the findings below, is there an additional diagnosis that is clinically appropriate for this patient? History/Risk Factors: Type I DM, gastroparesis. Admitted with DKA, metabolic encephalopathy and PADMINI. Clinical Indicators: 09/03 VS: HR 143-115, RR 19-28-10-50 09/12 VS: HR 116-98; RR 6-27 09/10 ID: "patient was transferred to the ICU for DKA also noticed to have a white count 25,000." 09/10 Pulmonary: "He is lethargic, encephalopathic, dehydrated, and he has been having emesis coffee-ground." 09/11 IM: "He has acute diabetic ketoacidosis and anion gap acidosis, severe dehydration, acute kidney injury, metabolic encephalopathy, type 1 diabetes, gastroparesis with a gastric pump in place." 09/03 WBC: 12.4-26.8-14.1-7.9-25.3-21.1-8.8 09/03 VBG: pH 7.25, pCO2 23, HCO3 10 09/10 VBG: pH 7.25, pCO2 15, HCO3 7 09/03-09/12 Glucose: 483-148-854-515-793-590-115 09/03-09/12 Cr: 1.84-1.46-0.87-1.40-0.99-0.62 09/04 Procalcitonin: 2.78 09/10 CRP: 2.4 09/10 Procalcitonin: 5.49 09/03 Acetone: positive Treatment: ICU monitoring. Daily lab monitoring. 0.9 NS 1L IV bolus on 09/03 and 09/10; 0.9 NS @200ml/hr 09/03-09/06; 0.9NS @ 125ml/hr 09/10-current; Insulin drip 09/03- 09/05 and 09/10; Latuda 40mg w breakfast and 120mg po w supper 09/09-current; Seroquel po BID 09/04-current; IV Protonix 40mg BID 09/04-current. Is there an additional diagnosis that is clinically appropriate for this patient? [ ] SIRS, due to DKA with acute kidney injury, present on admission [ ] Other, please specify [ ] Unable to determine SIRS Criteria: 2 or more of the following may indicate SIRS -Temperature < 96.8F(36C) or > 101.0F (38.3C) -Heart Rate > 90 bpm -Respiratory Rate > 20 breaths/min or PaCO2 < 32 mmHg -White Blood Cell Count > 12,000 or < 4,000 cells/mm3 or > 10% bands MTDD
[2022-09-12 11:17] LABS: Glucose,Whole Blood 174 mg/dL (70-110)
[2022-09-12] MEDS: METOPROLOL TARTRATE 50 MG TAB PO SCH ×2 (11:23→20:35)
--- NOTE | 2022-09-12 11:46 | P.PN ---
Subjective Progress Note Date: 09/12/22 Principal diagnosis: Acute DKA 36-year-old male patient, type 1 diabetes mellitus, got transferred to the intensive care unit as the patient's wound back into DKA based on morning labs. Noted the patient has type 1 diabetes mellitus and initially presented to the hospital because of DKA and his initial admission was back in 09/03/2022. He was treated by Dr. Dickerson and Dr. Mendoza, nevertheless, his blood sugars continued to be elevated and earlier this morning, the patient bounced back into DKA. Currently, he seems to be dehydrated. Most recent blood sugar is elevated and his blood sugar has been running high above 700. His serum bicarb is less than 5 and his anion gap is currently at 37. BUN is 15 and the patient is also sustained an acute kidney injury with a creatinine of 1.28. His white cell count is at 25 with a hemoglobin of 14.7 and a platelet count of 346. Based on that, the patient was restarted back on insulin drip which is currently running at 6 units an hour. We are trying to establish IV access to start resuscitating this patient with IV fluids and insulin drip. He is lethargic, encephalopathic, dehydrated, and he has been having emesis coffee-ground. No melanotic stools. The patient's echocardiogram shows an ejection fraction of 55-60%. He does have advanced diabetic gastroparesis, hypertensive heart disease and hyperlipidemia. Reevaluated today on 09/11/2022, patient continues to have intermittent episodes of vomiting and coffee-ground emesis. Hemoglobin is down to 11.2 today, it was 12.4 on 09/07/2022, patient continues to have a bit of leukocytosis, his electrolytes are normal and his anion gap is down to 11 renal functioning is normal. Bicarb remains a bit low at 17 however his anion gap is 11. Patient is on Protonix, is being followed by surgery regarding his coffee-ground emesis and his nausea vomiting and abdominal pain. Patient was felt to have gastric distention consistent with gastroparesis and he does have hiatal hernia as well as esophagitis, recommendation is to continue clear liquids, supportive care measures and PPI as well as antiemetics. EGD on this patient done on showed previous history of gastritis esophagitis and history of hernia Reevaluated today on 09/12/2022, patient remains in the ICU, continues to have intermittent episodes of coffee-ground emesis, hemoglobin is down to 10. Santos carson lost about 4 g of hemoglobin since his admission. Did not require any transfusions yet. Patient has severe esophagitis, he was on Diflucan, and now he was placed on eraxis by infectious disease. Patient is also on Protonix. No plans by surgery to perform EGD on this patient. They are recommending clear liquids and supportive care measures as well as PPIs anti-antiemetics. Considering the drop in hemoglobin and considering the ongoing blood losses, will keep the patient ICU for now. Electrolytes are abnormal being corrected as per protocol bicarb is 25 anion gap has resolved the lips count is 8.8 hemoglobin is 10 platelets are 207 Objective - Vital Signs Vital signs: Vital Signs Temp 98.4 F 09/12/22 08:00 Pulse 115 H 09/12/22 10:00 Resp 22 09/12/22 10:00 BP 128/84 09/12/22 10:00 Pulse Ox 96 09/12/22 10:00 FiO2 100 09/12/22 08:00 Intake & Output 09/11/22 09/12/22 09/12/22 18:59 06:59 18:59 Intake Total 3025 1225 700 Output Total 1700 1765 1400 Balance 1325 -540 -700 Weight 66.9 kg 65.4 kg Intake: Intake, IV Titration 1225 1225 700 Amount Anidulafungin 100 mg In 100 Sodium Chloride 0.9% 100 ml @ 84 mls/hr IVPB DAILY @1600 [facility] Rx#:[id number] Potassium Chloride 20 meq 100 200 In Water For Injection 1 100ml.bag @ 50 mls/hr IVPB Q2H [facility] Rx#: [id number] Sodium Chloride 0.9% 1, 1125 1125 500 000 ml @ 125 mls/hr IV . Q8H [facility] Rx#:[id number] Oral 1800 0 Output: Urine 1700 1765 1400 Other: Voiding Method Urinal # Voids 1 - Exam Physical Exam: Revealed 37-year-old white male in no distress, on room air. Head: Atraumatic normocephalic HEENT:[Neck is supple.] [No neck masses.] [No thyromegaly.] [No JVD.] Chest: [Clear throughout, no crackles, no rhonchi, no wheezes.] Cardiac Exam: [Normal S1 and S2, no S3 gallop, no murmur.] Abdomen: [Soft, nontender, no megaly, no rebound, no guarding, normal bowel sounds.] Extremities: [No clubbing, no edema, no cyanosis.] Neurological Exam: [No focal neurologic deficit.] Alert and oriented 3 Psychiatric: Normal mood affect and normal mental status examination. Skin: No rashes. - Labs CBC & Chem 7: 09/12/22 03:24 09/12/22 03:24 Labs: Abnormal Lab Results - Last 24 Hours (Table) 09/11/22 09/12/22 09/12/22 Range/Units 11:52 02:39 03:24 RBC 3.18 L (4.30-5.90) m/uL Hgb 10.0 L (13.0-17.5) gm/dL Hct 28.3 L (39.0-53.0) % Sodium (137-145) mmol/L Potassium (3.5-5.1) mmol/L BUN (9-20) mg/dL Creatinine (0.66-1.25) mg/dL Glucose (74-99) mg/dL POC Glucose (mg/dL) 163 H 118 H (70-110) mg/dL Calcium (8.4-10.2) mg/dL AST (17-59) U/L Total Protein (6.3-8.2) g/dL Albumin (3.5-5.0) g/dL 09/12/22 09/12/22 09/12/22 Range/Units 03:24 06:16 11:15 RBC (4.30-5.90) m/uL Hgb (13.0-17.5) gm/dL Hct (39.0-53.0) % Sodium 134 L (137-145) mmol/L Potassium 2.9 L (3.5-5.1) mmol/L BUN 7 L (9-20) mg/dL Creatinine 0.62 L (0.66-1.25) mg/dL Glucose 115 H (74-99) mg/dL POC Glucose (mg/dL) 176 H 174 H (70-110) mg/dL Calcium 8.0 L (8.4-10.2) mg/dL AST 15 L (17-59) U/L Total Protein 5.0 L (6.3-8.2) g/dL Albumin 2.7 L (3.5-5.0) g/dL Assessment and Plan Assessment: Impression: Acute DKA Acute anion gap is embolic acidosis Severe dehydration Acute kidney injury secondary to above Acute metabolic encephalopathy Type 1 diabetes Diabetic gastroparesis Diabetic neuropathy Coffee-ground emesis , and upper GI bleeding with gastritis/esophagitis Benign essential hypertension Recommendation: Continue to monitor the patient in the ICU Continue IV fluids Continue eraxis Surgery is addressing his emesis and his drop in hemoglobin Continue IV Protonix We will continue to follow Time with Patient: Less than 30
--- NOTE | 2022-09-12 13:54 | P.PN ---
Subjective Patient is resting comfortably in bed No chest discomfort dizziness or lightheadedness Heart rates up elevated but improved On examination alert and oriented Normal S1 normal S2 regular rate and rhythm Decreased air entry bilaterally but no rhonchi no crackles No lower extremity edema Impression sinus tachycardia Diabetic ketoacidosis Dyslipidemia Normal LV systolic function Noncompliance Normal renal function Hypertension Plan Continue beta blockers Lipid panel Consider statins Continue shilpa inhibitors Objective - Vital Signs Vital signs: Vital Signs Temp 98.2 F 09/12/22 12:00 Pulse 120 H 09/12/22 12:00 Resp 9 L 09/12/22 12:00 BP 133/78 09/12/22 12:00 Pulse Ox 98 09/12/22 12:00 FiO2 100 09/12/22 12:00 Intake & Output 09/11/22 09/12/22 09/12/22 18:59 06:59 18:59 Intake Total 3025 1225 1250 Output Total 1700 1765 1700 Balance 1325 -540 -450 Weight 66.9 kg 65.4 kg Intake: Intake, IV Titration 1225 1225 950 Amount Anidulafungin 100 mg In 100 Sodium Chloride 0.9% 100 ml @ 84 mls/hr IVPB DAILY @1600 [facility] Rx#:[id number] Potassium Chloride 20 meq 100 200 In Water For Injection 1 100ml.bag @ 50 mls/hr IVPB Q2H [facility] Rx#: [id number] Sodium Chloride 0.9% 1, 1125 1125 750 000 ml @ 125 mls/hr IV . Q8H [facility] Rx#:[id number] Oral 1800 0 300 Output: Urine 1700 1765 1700 Other: Voiding Method Urinal # Voids 1 - Labs CBC & Chem 7: 09/12/22 03:24 09/12/22 03:24 Labs: Abnormal Lab Results - Last 24 Hours (Table) 09/12/22 09/12/22 09/12/22 Range/Units 02:39 03:24 03:24 RBC 3.18 L (4.30-5.90) m/uL Hgb 10.0 L (13.0-17.5) gm/dL Hct 28.3 L (39.0-53.0) % Sodium 134 L (137-145) mmol/L Potassium 2.9 L (3.5-5.1) mmol/L BUN 7 L (9-20) mg/dL Creatinine 0.62 L (0.66-1.25) mg/dL Glucose 115 H (74-99) mg/dL POC Glucose (mg/dL) 118 H (70-110) mg/dL Calcium 8.0 L (8.4-10.2) mg/dL AST 15 L (17-59) U/L Total Protein 5.0 L (6.3-8.2) g/dL Albumin 2.7 L (3.5-5.0) g/dL 09/12/22 09/12/22 Range/Units 06:16 11:15 RBC (4.30-5.90) m/uL Hgb (13.0-17.5) gm/dL Hct (39.0-53.0) % Sodium (137-145) mmol/L Potassium (3.5-5.1) mmol/L BUN (9-20) mg/dL Creatinine (0.66-1.25) mg/dL Glucose (74-99) mg/dL POC Glucose (mg/dL) 176 H 174 H (70-110) mg/dL Calcium (8.4-10.2) mg/dL AST (17-59) U/L Total Protein (6.3-8.2) g/dL Albumin (3.5-5.0) g/dL Microbiology - Last 24 Hours (Table) 09/11/22 03:52 Blood Culture - Preliminary Blood
--- NOTE | 2022-09-12 13:56 | PN ---
PROGRESS NOTE Acute on chronic kidney injury present on admission and systemic inflammatory response syndrome due to DKA with acute kidney injury present on admission. MMODL / IJN: [id number] /
[2022-09-12 14:51] LABS: Glucose,Whole Blood 71 mg/dL (70-110)
--- NOTE | 2022-09-12 15:36 | P.PN ---
Subjective Progress Note Date: 09/11/22 Principal diagnosis: Leukocytosis Patient is a 36-year-old male with a past medical history significant for insulin-dependent diabetes mellitus and diabetic gastroparesis and diabetic neuropathy did have a history of diabetic foot infection in addition to anxiety bipolar depression patient was brought into the hospital as the patient was noticed to have elevated blood sugar patient has been feeling nauseated and vomiting and complaining of generalized body aches patient has been diagnosed with DKA and is being treated appropriately patient did have a CT of the chest abdominal pelvis with no acute finding except thickened esophagus and the patient was noticed to have elevated white count probably this infectious disease consultation. On today's evaluation that is 09/11/2022 , the patient continues to be afebrile, the patient is breathing comfortably on room air, the patient denies having any chest pain or shortness of breath occasional cough still have some nausea but no further vomiting has been reported no abdominal pain and no diarrhea Patient white count is down to 21.1, creatinine 0.99, pro-calcitonin of 5.49, patient however did have a chest x-ray did not show any acute process Objective - Vital Signs Vital signs: Vital Signs Temp 98.2 F 09/11/22 12:00 Pulse 130 H 09/11/22 12:00 Resp 17 09/11/22 12:00 BP 120/80 09/11/22 12:00 Pulse Ox 95 09/11/22 12:00 FiO2 100 09/03/22 22:54 Intake & Output 09/10/22 09/11/22 09/11/22 18:59 06:59 18:59 Intake Total 3667.72 2229.035 825 Output Total 700 1200 1100 Balance 2967.72 1029.035 -275 Weight 66.9 kg 66.9 kg Intake: Intake, IV Titration 3667.72 1729.035 375 Amount Anidulafungin 200 mg In 200 200 Sodium Chloride 0.9% 200 ml @ 84 mls/hr IVPB ONCE ONE Rx#:[id number] D5-0.45% NaCl with KCl 150 1050 20Meq/l 1,000 ml @ 150 mls/hr IV .[id number] [facility] Rx# :[id number] D5-0.45% NaCl with KCl 450 20Meq/l 1,000 ml @ 50 mls /hr IV .Q20H [facility] Rx#: [id number] Insulin Regular 100 unit 67.72 79.035 In Sodium Chloride 0.9% 100 ml @ 0.1 UNITS/KG/HR 6.78 mls/hr IV .[id number] [facility] Rx#:[id number] Potassium Chloride 10 meq 200 In Water For Injection 1 100ml.bag @ 100 mls/hr IVPB Q1H [facility] Rx#: [id number] Potassium Chloride 20 meq 200 In Water For Injection 1 100ml.bag @ 50 mls/hr IVPB Q2H [facility] Rx#: [id number] Sodium Chloride 0.9% 1, 800 375 000 ml @ 125 mls/hr IV . Q8H [facility] Rx#:[id number] Sodium Chloride 0.9% 2, 2000 000 ml @ 999 mls/hr IV . Q2H1M ONE Rx#:[id number] Oral 0 500 450 Output: Urine 700 1200 1100 - Exam GENERAL DESCRIPTION: Middle-aged male lying in bed in no distress RESPIRATORY SYSTEM: Unlabored breathing , decreased breath sounds at bases HEART: S1 S2 regular rate and rhythm , ABDOMEN: Soft , no tenderness EXTREMITIES: No edema feet - Labs CBC & Chem 7: 09/12/22 03:24 09/12/22 03:24 Labs: Abnormal Lab Results - Last 24 Hours (Table) 09/10/22 09/10/22 09/10/22 Range/Units 13:15 14:00 14:15 WBC (3.8-10.6) k/uL RBC (4.30-5.90) m/uL Hgb (13.0-17.5) gm/dL Hct (39.0-53.0) % Neutrophils # (1.3-7.7) k/uL Sodium (137-145) mmol/L Potassium (3.5-5.1) mmol/L Chloride (98-107) mmol/L Carbon Dioxide (22-30) mmol/L BUN (9-20) mg/dL Creatinine (0.66-1.25) mg/dL Glucose (74-99) mg/dL POC Glucose (mg/dL) 272 H 266 H (70-110) mg/dL Calcium (8.4-10.2) mg/dL Phosphorus 1.9 L (2.5-4.5) mg/dL AST (17-59) U/L C-Reactive Protein (<1.0) mg/dL Total Protein (6.3-8.2) g/dL Albumin (3.5-5.0) g/dL Procalcitonin (0.02-0.09) ng/mL 09/10/22 09/10/22 09/10/22 Range/Units 14:15 14:16 15:03 WBC (3.8-10.6) k/uL RBC (4.30-5.90) m/uL Hgb (13.0-17.5) gm/dL Hct (39.0-53.0) % Neutrophils # (1.3-7.7) k/uL Sodium (137-145) mmol/L Potassium 3.3 L (3.5-5.1) mmol/L Chloride (98-107) mmol/L Carbon Dioxide 14 L (22-30) mmol/L BUN 32 H (9-20) mg/dL Creatinine 1.31 H (0.66-1.25) mg/dL Glucose 247 H (74-99) mg/dL POC Glucose (mg/dL) 205 H (70-110) mg/dL Calcium (8.4-10.2) mg/dL Phosphorus (2.5-4.5) mg/dL AST (17-59) U/L C-Reactive Protein 2.4 H (<1.0) mg/dL Total Protein (6.3-8.2) g/dL Albumin (3.5-5.0) g/dL Procalcitonin 5.49 H (0.02-0.09) ng/mL 09/10/22 09/10/22 09/10/22 Range/Units 15:58 17:05 17:54 WBC (3.8-10.6) k/uL RBC (4.30-5.90) m/uL Hgb (13.0-17.5) gm/dL Hct (39.0-53.0) % Neutrophils # (1.3-7.7) k/uL Sodium (137-145) mmol/L Potassium (3.5-5.1) mmol/L Chloride (98-107) mmol/L Carbon Dioxide (22-30) mmol/L BUN (9-20) mg/dL Creatinine (0.66-1.25) mg/dL Glucose (74-99) mg/dL POC Glucose (mg/dL) 192 H 196 H 175 H (70-110) mg/dL Calcium (8.4-10.2) mg/dL Phosphorus (2.5-4.5) mg/dL AST (17-59) U/L C-Reactive Protein (<1.0) mg/dL Total Protein (6.3-8.2) g/dL Albumin (3.5-5.0) g/dL Procalcitonin (0.02-0.09) ng/mL 09/10/22 09/10/22 09/10/22 Range/Units 18:59 19:45 20:00 WBC (3.8-10.6) k/uL RBC (4.30-5.90) m/uL Hgb (13.0-17.5) gm/dL Hct (39.0-53.0) % Neutrophils # (1.3-7.7) k/uL Sodium 136 L (137-145) mmol/L Potassium 3.3 L (3.5-5.1) mmol/L Chloride 109 H (98-107) mmol/L Carbon Dioxide 20 L (22-30) mmol/L BUN 42 H (9-20) mg/dL Creatinine (0.66-1.25) mg/dL Glucose 138 H (74-99) mg/dL POC Glucose (mg/dL) 156 H 131 H (70-110) mg/dL Calcium (8.4-10.2) mg/dL Phosphorus 2.2 L (2.5-4.5) mg/dL AST (17-59) U/L C-Reactive Protein (<1.0) mg/dL Total Protein (6.3-8.2) g/dL Albumin (3.5-5.0) g/dL Procalcitonin (0.02-0.09) ng/mL 09/10/22 09/10/22 09/10/22 Range/Units 21:03 21:57 23:04 WBC (3.8-10.6) k/uL RBC (4.30-5.90) m/uL Hgb (13.0-17.5) gm/dL Hct (39.0-53.0) % Neutrophils # (1.3-7.7) k/uL Sodium (137-145) mmol/L Potassium (3.5-5.1) mmol/L Chloride (98-107) mmol/L Carbon Dioxide (22-30) mmol/L BUN (9-20) mg/dL Creatinine (0.66-1.25) mg/dL Glucose (74-99) mg/dL POC Glucose (mg/dL) 138 H 148 H 139 H (70-110) mg/dL Calcium (8.4-10.2) mg/dL Phosphorus (2.5-4.5) mg/dL AST (17-59) U/L C-Reactive Protein (<1.0) mg/dL Total Protein (6.3-8.2) g/dL Albumin (3.5-5.0) g/dL Procalcitonin (0.02-0.09) ng/mL 09/11/22 09/11/22 09/11/22 Range/Units 00:06 01:08 01:55 WBC (3.8-10.6) k/uL RBC (4.30-5.90) m/uL Hgb (13.0-17.5) gm/dL Hct (39.0-53.0) % Neutrophils # (1.3-7.7) k/uL Sodium (137-145) mmol/L Potassium (3.5-5.1) mmol/L Chloride (98-107) mmol/L Carbon Dioxide (22-30) mmol/L BUN (9-20) mg/dL Creatinine (0.66-1.25) mg/dL Glucose (74-99) mg/dL POC Glucose (mg/dL) 136 H 135 H 118 H (70-110) mg/dL Calcium (8.4-10.2) mg/dL Phosphorus (2.5-4.5) mg/dL AST (17-59) U/L C-Reactive Protein (<1.0) mg/dL Total Protein (6.3-8.2) g/dL Albumin (3.5-5.0) g/dL Procalcitonin (0.02-0.09) ng/mL 09/11/22 09/11/22 09/11/22 Range/Units 03:00 03:52 03:52 WBC 21.1 H (3.8-10.6) k/uL RBC 3.60 L (4.30-5.90) m/uL Hgb 11.2 L D (13.0-17.5) gm/dL Hct 32.5 L (39.0-53.0) % Neutrophils # 18.6 H (1.3-7.7) k/uL Sodium 135 L (137-145) mmol/L Potassium (3.5-5.1) mmol/L Chloride (98-107) mmol/L Carbon Dioxide 17 L (22-30) mmol/L BUN 30 H (9-20) mg/dL Creatinine (0.66-1.25) mg/dL Glucose 186 H (74-99) mg/dL POC Glucose (mg/dL) 170 H (70-110) mg/dL Calcium 8.3 L (8.4-10.2) mg/dL Phosphorus (2.5-4.5) mg/dL AST 12 L (17-59) U/L C-Reactive Protein (<1.0) mg/dL Total Protein 5.2 L (6.3-8.2) g/dL Albumin 3.0 L (3.5-5.0) g/dL Procalcitonin (0.02-0.09) ng/mL 09/11/22 09/11/22 09/11/22 Range/Units 04:04 05:12 05:58 WBC (3.8-10.6) k/uL RBC (4.30-5.90) m/uL Hgb (13.0-17.5) gm/dL Hct (39.0-53.0) % Neutrophils # (1.3-7.7) k/uL Sodium (137-145) mmol/L Potassium (3.5-5.1) mmol/L Chloride (98-107) mmol/L Carbon Dioxide (22-30) mmol/L BUN (9-20) mg/dL Creatinine (0.66-1.25) mg/dL Glucose (74-99) mg/dL POC Glucose (mg/dL) 201 H 180 H 202 H (70-110) mg/dL Calcium (8.4-10.2) mg/dL Phosphorus (2.5-4.5) mg/dL AST (17-59) U/L C-Reactive Protein (<1.0) mg/dL Total Protein (6.3-8.2) g/dL Albumin (3.5-5.0) g/dL Procalcitonin (0.02-0.09) ng/mL 09/11/22 09/11/22 Range/Units 06:52 11:52 WBC (3.8-10.6) k/uL RBC (4.30-5.90) m/uL Hgb (13.0-17.5) gm/dL Hct (39.0-53.0) % Neutrophils # (1.3-7.7) k/uL Sodium (137-145) mmol/L Potassium (3.5-5.1) mmol/L Chloride (98-107) mmol/L Carbon Dioxide (22-30) mmol/L BUN (9-20) mg/dL Creatinine (0.66-1.25) mg/dL Glucose (74-99) mg/dL POC Glucose (mg/dL) 199 H 163 H (70-110) mg/dL Calcium (8.4-10.2) mg/dL Phosphorus (2.5-4.5) mg/dL AST (17-59) U/L C-Reactive Protein (<1.0) mg/dL Total Protein (6.3-8.2) g/dL Albumin (3.5-5.0) g/dL Procalcitonin (0.02-0.09) ng/mL Assessment and Plan (1) Esophagitis Current Visit: No Status: Acute Code(s): K20.90 - ESOPHAGITIS, UNSPECIFIED WITHOUT BLEEDING SNOMED Code(s): 68404536 (2) Leukocytosis Current Visit: No Status: Acute Code(s): D72.829 - ELEVATED WHITE BLOOD CELL COUNT, UNSPECIFIED SNOMED Code(s): 945654331 Plan: 1patient with recurrent leukocytosis more likely related to his DKA as the patient white count initially improved after his DKA resolved now with recurrence of his symptoms especially nausea vomiting and the patient did have a positive serum acetone and white count is up to 25,000 and her likely related DKA underlying infection is less likely but not entirely excluded, patient did have a CT of abdominal pelvis and concern for possible thickening of esophagus questionably related to his recurrent episode of vomiting versus esophagitis , patient is currently on Eraxis to continue 2-patient did have elevated pro-calcitonin however no significant cough or sputum production breathing comfortably on room a chest x-ray was negative clinically doubt pneumonia Dictation was produced using [employer] dictation software. please excuse any grammatical, word or spelling errors. Time with Patient: Less than 30
--- NOTE | 2022-09-12 15:38 | P.PN ---
Subjective Progress Note Date: 09/12/22 Principal diagnosis: Leukocytosis Patient is a 36-year-old male with a past medical history significant for insulin-dependent diabetes mellitus and diabetic gastroparesis and diabetic neuropathy did have a history of diabetic foot infection in addition to anxiety bipolar depression patient was brought into the hospital as the patient was noticed to have elevated blood sugar patient has been feeling nauseated and vomiting and complaining of generalized body aches patient has been diagnosed with DKA and is being treated appropriately patient did have a CT of the chest abdominal pelvis with no acute finding except thickened esophagus and the patient was noticed to have elevated white count probably this infectious disease consultation. On today's evaluation that is 09/12/2022 , the patient denies any fever or any chills, the patient is breathing comfortably on room air, the patient denies having any chest pain or shortness of breath occasional cough, the patient did have have some nausea but no further vomiting has been reported by the nursing staff no abdominal pain and no diarrhea Patient white count has normalized to 8.8, creatinine is 0.62, blood culture so far pending Objective - Vital Signs Vital signs: Vital Signs Temp 98.2 F 09/12/22 12:00 Pulse 120 H 09/12/22 12:00 Resp 9 L 09/12/22 12:00 BP 133/78 09/12/22 12:00 Pulse Ox 98 09/12/22 12:00 FiO2 100 09/12/22 12:00 Intake & Output 09/11/22 09/12/22 09/12/22 18:59 06:59 18:59 Intake Total 3025 1225 1250 Output Total 1700 1765 1700 Balance 1325 -540 -450 Weight 66.9 kg 65.4 kg Intake: Intake, IV Titration 1225 1225 950 Amount Anidulafungin 100 mg In 100 Sodium Chloride 0.9% 100 ml @ 84 mls/hr IVPB DAILY @1600 [facility] Rx#:[id number] Potassium Chloride 20 meq 100 200 In Water For Injection 1 100ml.bag @ 50 mls/hr IVPB Q2H [facility] Rx#: [id number] Sodium Chloride 0.9% 1, 1125 1125 750 000 ml @ 125 mls/hr IV . Q8H [facility] Rx#:[id number] Oral 1800 0 300 Output: Urine 1700 1765 1700 Other: Voiding Method Urinal # Voids 1 - Exam GENERAL DESCRIPTION: Middle-aged male lying in bed in no distress RESPIRATORY SYSTEM: Unlabored breathing , decreased breath sounds at bases HEART: S1 S2 regular rate and rhythm , ABDOMEN: Soft , no tenderness EXTREMITIES: No edema feet - Labs CBC & Chem 7: 09/12/22 03:24 09/12/22 03:24 Labs: Abnormal Lab Results - Last 24 Hours (Table) 09/12/22 09/12/22 09/12/22 Range/Units 02:39 03:24 03:24 RBC 3.18 L (4.30-5.90) m/uL Hgb 10.0 L (13.0-17.5) gm/dL Hct 28.3 L (39.0-53.0) % Sodium 134 L (137-145) mmol/L Potassium 2.9 L (3.5-5.1) mmol/L BUN 7 L (9-20) mg/dL Creatinine 0.62 L (0.66-1.25) mg/dL Glucose 115 H (74-99) mg/dL POC Glucose (mg/dL) 118 H (70-110) mg/dL Calcium 8.0 L (8.4-10.2) mg/dL AST 15 L (17-59) U/L Total Protein 5.0 L (6.3-8.2) g/dL Albumin 2.7 L (3.5-5.0) g/dL 09/12/22 09/12/22 Range/Units 06:16 11:15 RBC (4.30-5.90) m/uL Hgb (13.0-17.5) gm/dL Hct (39.0-53.0) % Sodium (137-145) mmol/L Potassium (3.5-5.1) mmol/L BUN (9-20) mg/dL Creatinine (0.66-1.25) mg/dL Glucose (74-99) mg/dL POC Glucose (mg/dL) 176 H 174 H (70-110) mg/dL Calcium (8.4-10.2) mg/dL AST (17-59) U/L Total Protein (6.3-8.2) g/dL Albumin (3.5-5.0) g/dL Assessment and Plan (1) Esophagitis Current Visit: No Status: Acute Code(s): K20.90 - ESOPHAGITIS, UNSPECIFIED WITHOUT BLEEDING SNOMED Code(s): 75601246 (2) Leukocytosis Current Visit: No Status: Acute Code(s): D72.829 - ELEVATED WHITE BLOOD CELL COUNT, UNSPECIFIED SNOMED Code(s): 218367271 Plan: 1patient with recurrent leukocytosis more likely related to his DKA as the patient white count initially improved after his DKA resolved now with recurrence of his symptoms especially nausea vomiting and the patient did have a positive serum acetone and white count is up to 25,000 and likely related DKA underlying infection is less likely but not entirely excluded, patient did have a CT of abdominal pelvis and concern for possible thickening of esophagus questionably related to his recurrent episode of vomiting versus esophagitis , patient is currently maintained on Eraxis and the patient white count has normalized rather quickly more likely related to his DKA 2-patient did have elevated pro-calcitonin however no significant cough or sputum production breathing comfortably on room a chest x-ray was negative clinically doubt pneumonia, hence hold on adding any antibiotic therapy at this point Dictation was produced using [employer] dictation software. please excuse any grammatical, word or spelling errors. Time with Patient: Less than 30
--- NOTE | 2022-09-12 15:51 | P.PN ---
Subjective Progress Note Date: 09/12/22 CHIEF COMPLAINT: Nausea and vomiting HISTORY OF PRESENT ILLNESS: Patient required transfer to the ICU due to DKA and hematemesis with coffee ground emesis. Patient lying comfortably. Hemoglobin has dropped from 11.2-10 potassium low at 2.9 PHYSICAL EXAM: VITAL SIGNS: Reviewed. GENERAL: Well-developed in no acute distress. ABDOMEN: Soft. Nondistended. NEUROLOGIC: Alert and oriented. Cranial nerves II through XII grossly intact. ASSESSMENT: 1. Nausea and vomiting and abdominal pain 2. Gastric distention consistent with gastroparesis. Gastric distention not visualized on follow up Xray 3. DKA 4. History of gastritis, esophagitis and hiatal hernia on EGD from 04/13/22 PLAN: -Patient tentatively scheduled for EGD on , 09/14/[address] talbot -Continue consistent carbohydrate diet -Continue supportive -Continue PPI and antiemetics Physician Shaper Setter note has been reviewed by physician. Signing provider agrees with the documented findings, assessment, and plan of care. Objective - Vital Signs Vital signs: Vital Signs Temp 98.2 F 09/12/22 12:00 Pulse 98 09/12/22 14:00 Resp 11 L 09/12/22 14:00 BP 135/91 09/12/22 14:00 Pulse Ox 96 09/12/22 14:00 FiO2 100 09/12/22 12:00 Intake & Output 09/11/22 09/12/22 09/12/22 18:59 06:59 18:59 Intake Total 3025 1225 1600 Output Total 1700 1765 2100 Balance 1325 -540 -500 Weight 66.9 kg 65.4 kg Intake: Intake, IV Titration 1225 1225 1300 Amount Anidulafungin 100 mg In 100 Sodium Chloride 0.9% 100 ml @ 84 mls/hr IVPB DAILY @1600 [facility] Rx#:[id number] Potassium Chloride 20 meq 100 300 In Water For Injection 1 100ml.bag @ 50 mls/hr IVPB Q2H [facility] Rx#: [id number] Sodium Chloride 0.9% 1, 1125 1125 1000 000 ml @ 125 mls/hr IV . Q8H [facility] Rx#:[id number] Oral 1800 0 300 Output: Urine 1700 1765 2100 Other: Voiding Method Urinal # Voids 1 - Labs CBC & Chem 7: 09/12/22 03:24 09/12/22 03:24 Labs: Abnormal Lab Results - Last 24 Hours (Table) 09/12/22 09/12/22 09/12/22 Range/Units 02:39 03:24 03:24 RBC 3.18 L (4.30-5.90) m/uL Hgb 10.0 L (13.0-17.5) gm/dL Hct 28.3 L (39.0-53.0) % Sodium 134 L (137-145) mmol/L Potassium 2.9 L (3.5-5.1) mmol/L BUN 7 L (9-20) mg/dL Creatinine 0.62 L (0.66-1.25) mg/dL Glucose 115 H (74-99) mg/dL POC Glucose (mg/dL) 118 H (70-110) mg/dL Calcium 8.0 L (8.4-10.2) mg/dL AST 15 L (17-59) U/L Total Protein 5.0 L (6.3-8.2) g/dL Albumin 2.7 L (3.5-5.0) g/dL 09/12/22 09/12/22 Range/Units 06:16 11:15 RBC (4.30-5.90) m/uL Hgb (13.0-17.5) gm/dL Hct (39.0-53.0) % Sodium (137-145) mmol/L Potassium (3.5-5.1) mmol/L BUN (9-20) mg/dL Creatinine (0.66-1.25) mg/dL Glucose (74-99) mg/dL POC Glucose (mg/dL) 176 H 174 H (70-110) mg/dL Calcium (8.4-10.2) mg/dL AST (17-59) U/L Total Protein (6.3-8.2) g/dL Albumin (3.5-5.0) g/dL Microbiology - Last 24 Hours (Table) 09/11/22 03:52 Blood Culture - Preliminary Blood
[2022-09-12 16:41] LABS: Glucose,Whole Blood 154 mg/dL (70-110)
[2022-09-12] MEDS: ANIDULAFUNGIN 100 MG in SODIUM CHLORIDE 0.9% 100 ML IVPB SCH (16:47)
[2022-09-12] MEDS: LURASIDONE 60 MG TAB PO SCH (16:51)
[2022-09-12 20:35] LABS: Glucose,Whole Blood 118 mg/dL (70-110)
[2022-09-12] MEDS: MONTELUKAST 10 MG TAB PO SCH (20:35)
[2022-09-12] MEDS: ATORVASTATIN 20 MG TAB PO SCH (20:35)
[2022-09-12] MEDS: QUEtiapine 25 MG TAB PO SCH (20:37)
[2022-09-12] MEDS: LORazepam 2 MG/ML INJ IV PRN (23:24)
[2022-09-12] MEDS: POTASSIUM CHLORIDE ER 20 MEQ TAB.ER PO SCH (23:56)
[2022-09-13] MEDS: HYDROmorphone 0.5 MG/0.5 ML SYRINGE IVP PRN ×5 (00:48→20:46)
[2022-09-13] MEDS: POTASSIUM CHLORIDE ER 20 MEQ TAB.ER PO SCH ×3 (01:02→05:52)
--- NOTE | 2022-09-13 01:08 | PN ---
PROGRESS NOTE HISTORY OF PRESENT ILLNESS: The patient appears to be doing a little bit better in ICU fungal infection, most likely esophagitis triggering a DKA. He is not vomiting like he was before. Thickened esophagus, elevated white count, most likely he has esophagitis from fungal infection like he had before with a relapse. He is getting better he had elevated procalcitonin. So far blood cultures pending. Temperature is 98.2, pulse 120, now down to 103; blood pressure 133/70, O2 is 98%, FiO2 of 100%. He is giving appropriate answers. PHYSICAL EXAMINATION: CARDIOVASCULAR: S1, S2 LUNGS: Clear. GI: Epigastric tenderness. HEMATOLOGY: Negative Homans. LABORATORY DATA: White count is 8.8, hemoglobin is 10, BUN is 7, creatinine is 0.62. 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 PROGNOSIS: Guarded. Please see further orders. Advance diet as tolerated. MMODL / IJN: [id number] /
[2022-09-13 02:23] LABS: Glucose,Whole Blood 357 mg/dL (70-110)
[2022-09-13] MEDS: INSULIN ASPART (NovoLOG) 100 UNIT/ML VIAL SQ SCH ×8 (02:31→20:40)
[2022-09-13] MEDS: ONDANSETRON 4 MG/2 ML VIAL IVP PRN (02:33)
[2022-09-13 04:37] LABS: Basophils % (A) 0 %; Eosinophils % (A) 0 %; HGB 9.3 gm/dL (13.0-17.5); Lymphocytes # (A) 1.8 k/uL (1.0-4.8); Lymphocytes % (A) 33 %; MCH 30.9 pg (25.0-35.0); MCHC 34.5 g/dL (31.0-37.0); MCV 89.6 fL (80.0-100.0); Mean Platelet Volume 7.6; Monocytes # (A) 0.5 k/uL (0-1.0); Monocytes % (A) 9 %; Neutrophils % (A) 56 %; Platelet Count 198 k/uL (150-450); RBC 3.02 m/uL (4.30-5.90); WBC 5.4 k/uL (3.8-10.6)
[2022-09-13 04:43] LABS: AST 27 U/L (17-59); African American GFR (CKD) >90 (>60 ml/min/1.73 sqM); Albumin 2.6 g/dL (3.5-5.0); Alkaline Phosphatase 75 U/L (38-126); Anion Gap 9 mmol/L; Blood Urea Nitrogen 5 mg/dL (9-20); Calcium 8.1 mg/dL (8.4-10.2); Carbon Dioxide 24 mmol/L (22-30); Chloride 104 mmol/L (98-107); Glucose 215 mg/dL (74-99); Non-African American GFR(CKD) >90 (>60 ml/min/1.73 sqM); Potassium 3.3 mmol/L (3.5-5.1); Sodium 137 mmol/L (137-145); Total Bilirubin 0.2 mg/dL (0.2-1.3); Total Protein 4.7 g/dL (6.3-8.2)
[2022-09-13 04:50] LABS: ALT 30 U/L (4-49)
[2022-09-13] MEDS ORDERED: Potassium Replacement Protocol 1 EACH MISC MISCELLANE PRN (05:00)
[2022-09-13 06:24] LABS: Glucose,Whole Blood 223 mg/dL (70-110)
[2022-09-13] MEDS: INSULIN DETEMIR (LEVEMIR) 100 UNIT/ML SYR SQ SCH (06:37)
[2022-09-13] MEDS: LURASIDONE 40 MG TAB PO SCH (06:38)
[2022-09-13] MEDS: LORazepam 2 MG/ML INJ IV PRN ×2 (06:43→18:31)
[2022-09-13] MEDS: BUDESONIDE 0.5 MG/2 ML NEBU INHALATION SCH ×2 (08:20→19:19)
[2022-09-13] MEDS: IPRATROPIUM-ALBUTEROL 3 ML NEB INHALATION SCH ×4 (08:20→19:19)
[2022-09-13] MEDS: METOCLOPRAMIDE 5 MG/ML 2 ML VIAL IVP SCH ×2 (09:39→15:45)
[2022-09-13] MEDS: PANTOPRAZOLE 40 MG/10 ML VIAL IVP SCH ×2 (09:39→20:45)
[2022-09-13] MEDS: lisinopriL 20 MG TAB PO SCH (09:40)
[2022-09-13] MEDS: METOPROLOL TARTRATE 50 MG TAB PO SCH ×2 (09:40→20:45)
[2022-09-13] MEDS: QUEtiapine 50 MG TAB PO SCH ×2 (09:40→20:58)
[2022-09-13] MEDS: TRIHEXYPHENIDYL 2 MG TAB PO SCH ×2 (09:41→20:58)
[2022-09-13] MEDS: ATROPINE OPHTH SOLN 1% 5ML BTL LEFT EYE SCH ×2 (09:42→20:46)
[2022-09-13] MEDS: prednisoLONE ACETATE 1% OPHTH DROPS 5 ML BTL RIGHT EYE SCH ×2 (09:42→20:45)
[2022-09-13] MEDS: SODIUM CHLORIDE 0.9% 1,000 ML IV SCH ×2 (09:42→18:27)
[2022-09-13] MEDS: amLODIPine 5 MG TAB PO SCH ×2 (09:43→20:45)
[2022-09-13] MEDS: POTASSIUM CHLORIDE 10 MEQ in WATER FOR INJECTION 1 100ML.BAG IVPB SCH ×4 (10:18→15:46)
--- NOTE | 2022-09-13 10:33 | P.PN ---
Subjective Progress Note Date: 09/13/22 Principal diagnosis: Acute DKA 36-year-old male patient, type 1 diabetes mellitus, got transferred to the intensive care unit as the patient's wound back into DKA based on morning labs. Noted the patient has type 1 diabetes mellitus and initially presented to the hospital because of DKA and his initial admission was back in 09/03/2022. He was treated by Dr. Dickerson and Dr. Mendoza, nevertheless, his blood sugars continued to be elevated and earlier this morning, the patient bounced back into DKA. Currently, he seems to be dehydrated. Most recent blood sugar is elevated and his blood sugar has been running high above 700. His serum bicarb is less than 5 and his anion gap is currently at 37. BUN is 15 and the patient is also sustained an acute kidney injury with a creatinine of 1.28. His white cell count is at 25 with a hemoglobin of 14.7 and a platelet count of 346. Based on that, the patient was restarted back on insulin drip which is currently running at 6 units an hour. We are trying to establish IV access to start resuscitating this patient with IV fluids and insulin drip. He is lethargic, encephalopathic, dehydrated, and he has been having emesis coffee-ground. No melanotic stools. The patient's echocardiogram shows an ejection fraction of 55-60%. He does have advanced diabetic gastroparesis, hypertensive heart disease and hyperlipidemia. Reevaluated today on 09/11/2022, patient continues to have intermittent episodes of vomiting and coffee-ground emesis. Hemoglobin is down to 11.2 today, it was 12.4 on 09/07/2022, patient continues to have a bit of leukocytosis, his electrolytes are normal and his anion gap is down to 11 renal functioning is normal. Bicarb remains a bit low at 17 however his anion gap is 11. Patient is on Protonix, is being followed by surgery regarding his coffee-ground emesis and his nausea vomiting and abdominal pain. Patient was felt to have gastric distention consistent with gastroparesis and he does have hiatal hernia as well as esophagitis, recommendation is to continue clear liquids, supportive care measures and PPI as well as antiemetics. EGD on this patient done on showed previous history of gastritis esophagitis and history of hernia Reevaluated today on 09/12/2022, patient remains in the ICU, continues to have intermittent episodes of coffee-ground emesis, hemoglobin is down to 10. Santos carson lost about 4 g of hemoglobin since his admission. Did not require any transfusions yet. Patient has severe esophagitis, he was on Diflucan, and now he was placed on eraxis by infectious disease. Patient is also on Protonix. No plans by surgery to perform EGD on this patient. They are recommending clear liquids and supportive care measures as well as PPIs anti-antiemetics. Considering the drop in hemoglobin and considering the ongoing blood losses, will keep the patient ICU for now. Electrolytes are abnormal being corrected as per protocol bicarb is 25 anion gap has resolved the lips count is 8.8 hemoglobin is 10 platelets are 207 Reevaluated today on 09/13/2022, patient is doing well, nonetheless his hemoglobin continues to drift down, and obviously the patient is having ongoing upper GI bleeding. Did not require any blood transfusions so far. Today's hemoglobin is 9.3, hemoglobin on admission was 14. 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 Diabetes hartley, his DKA has resolved, his anion gap has closed. Bicarb is 24 and his anion gap is 9. Potassium is a bit low at 3.3 being addressed as per protocol Objective - Vital Signs Vital signs: Vital Signs Temp 98 F 09/13/22 08:00 Pulse 92 09/13/22 10:00 Resp 14 09/13/22 10:00 BP 126/76 09/13/22 10:00 Pulse Ox 96 09/13/22 10:00 FiO2 100 09/12/22 16:00 Intake & Output 09/12/22 09/13/22 09/13/22 18:59 06:59 18:59 Intake Total 2475 2665 375 Output Total 2400 2320 400 Balance 75 345 -25 Weight 65 kg Intake: IV 1500 375 Sodium Chloride 0.9% 1, 1500 375 000 ml @ 125 mls/hr IV . Q8H [facility] Rx#:[id number] Intake, IV Titration 1925 125 Amount Potassium Chloride 20 meq 250 In Water For Injection 1 100ml.bag @ 50 mls/hr IVPB Q2H [facility] Rx#: [id number] Sodium Chloride 0.9% 1, 1675 125 000 ml @ 125 mls/hr IV . Q8H [facility] Rx#:[id number] Oral 550 1040 Output: Urine 2400 2320 400 Other: Voiding Method Urinal Urinal Urinal - Exam Physical Exam: Revealed 37-year-old white male in no distress, on room air. Head: Atraumatic normocephalic HEENT:[Neck is supple.] [No neck masses.] [No thyromegaly.] [No JVD.] Chest: [Clear throughout, no crackles, no rhonchi, no wheezes.] Cardiac Exam: [Normal S1 and S2, no S3 gallop, no murmur.] Abdomen: [Soft, nontender, no megaly, no rebound, no guarding, normal bowel sounds.] Extremities: [No clubbing, no edema, no cyanosis.] Neurological Exam: [No focal neurologic deficit.] Alert and oriented 3 Psychiatric: Normal mood affect and normal mental status examination. Skin: No rashes. - Labs CBC & Chem 7: 09/13/22 04:21 09/13/22 09:56 Labs: Abnormal Lab Results - Last 24 Hours (Table) 09/12/22 09/12/22 09/12/22 Range/Units 11:15 16:39 20:34 RBC (4.30-5.90) m/uL Hgb (13.0-17.5) gm/dL Hct (39.0-53.0) % Potassium (3.5-5.1) mmol/L BUN (9-20) mg/dL Glucose (74-99) mg/dL POC Glucose (mg/dL) 174 H 154 H 118 H (70-110) mg/dL Calcium (8.4-10.2) mg/dL Total Protein (6.3-8.2) g/dL Albumin (3.5-5.0) g/dL 09/12/22 09/13/22 09/13/22 Range/Units 23:00 02:22 04:21 RBC 3.02 L (4.30-5.90) m/uL Hgb 9.3 L (13.0-17.5) gm/dL Hct 27.0 L (39.0-53.0) % Potassium 3.1 L (3.5-5.1) mmol/L BUN (9-20) mg/dL Glucose (74-99) mg/dL POC Glucose (mg/dL) 357 H (70-110) mg/dL Calcium (8.4-10.2) mg/dL Total Protein (6.3-8.2) g/dL Albumin (3.5-5.0) g/dL 09/13/22 09/13/22 09/13/22 Range/Units 04:21 06:22 07:48 RBC (4.30-5.90) m/uL Hgb (13.0-17.5) gm/dL Hct (39.0-53.0) % Potassium 3.3 L 3.2 L (3.5-5.1) mmol/L BUN 5 L (9-20) mg/dL Glucose 215 H (74-99) mg/dL POC Glucose (mg/dL) 223 H (70-110) mg/dL Calcium 8.1 L (8.4-10.2) mg/dL Total Protein 4.7 L (6.3-8.2) g/dL Albumin 2.6 L (3.5-5.0) g/dL Microbiology - Last 24 Hours (Table) 09/11/22 03:52 Blood Culture - Preliminary Blood Assessment and Plan Assessment: Impression: Acute DKA Acute anion gap is embolic acidosis Severe dehydration resolved. Acute kidney injury secondary to above Acute metabolic encephalopathy Type 1 diabetes Diabetic gastroparesis Diabetic neuropathy Coffee-ground emesis , and upper GI bleeding with gastritis/esophagitis Benign essential hypertension Recommendation: Continue to monitor the patient in the ICU Continue IV fluids Continue eraxis EGD scheduled to be done in a.m. Continue IV Protonix We will continue to follow Time with Patient: Less than 30
[2022-09-13 11:35] LABS: Glucose,Whole Blood 153 mg/dL (70-110)
--- NOTE | 2022-09-13 12:52 | P.PN ---
Subjective Progress Note Date: 09/13/22 CHIEF COMPLAINT: Nausea and vomiting HISTORY OF PRESENT ILLNESS: Patient in ICU due to DKA and hematemesis with coffee ground emesis. Patient lying comfortably. HgB continues to trend down from 10-9.3 PHYSICAL EXAM: VITAL SIGNS: Reviewed. GENERAL: Well-developed in no acute distress. ABDOMEN: Soft. Nondistended. NEUROLOGIC: Alert and oriented. Cranial nerves II through XII grossly intact. ASSESSMENT: 1. Anemia with episodes of coffee-ground emesis 2. Nausea and vomiting and abdominal pain 3. Gastric distention consistent with gastroparesis. Gastric distention not visualized on follow up Xray 4. DKA 5. History of gastritis, esophagitis and hiatal hernia on EGD from 04/13/22 PLAN: -Patient tentatively scheduled for EGD on , 09/14/[address] talbot -Nothing by mouth after midnight -Continue supportive -Continue PPI and antiemetics Physician Hedis Registered Nurse Rn note has been reviewed by physician. Signing provider agrees with the documented findings, assessment, and plan of care. Objective - Vital Signs Vital signs: Vital Signs Temp 98.2 F 09/13/22 12:00 Pulse 93 09/13/22 12:00 Resp 18 09/13/22 12:00 BP 108/76 09/13/22 12:00 Pulse Ox 93 L 09/13/22 12:00 FiO2 100 09/12/22 16:00 Intake & Output 09/12/22 09/13/22 09/13/22 18:59 06:59 18:59 Intake Total 2475 2665 825 Output Total 2400 2320 400 Balance 75 345 425 Weight 65 kg Intake: IV 1500 625 Sodium Chloride 0.9% 1, 1500 625 000 ml @ 125 mls/hr IV . Q8H [facility] Rx#:[id number] Intake, IV Titration 1925 125 Amount Potassium Chloride 20 meq 250 In Water For Injection 1 100ml.bag @ 50 mls/hr IVPB Q2H [facility] Rx#: [id number] Sodium Chloride 0.9% 1, 1675 125 000 ml @ 125 mls/hr IV . Q8H [facility] Rx#:[id number] Oral 550 1040 200 Output: Urine 2400 2320 400 Other: Voiding Method Urinal Urinal Urinal - Labs CBC & Chem 7: 09/13/22 04:21 09/13/22 09:56 Labs: Abnormal Lab Results - Last 24 Hours (Table) 09/12/22 09/12/22 09/12/22 Range/Units 16:39 20:34 23:00 RBC (4.30-5.90) m/uL Hgb (13.0-17.5) gm/dL Hct (39.0-53.0) % Potassium 3.1 L (3.5-5.1) mmol/L BUN (9-20) mg/dL Glucose (74-99) mg/dL POC Glucose (mg/dL) 154 H 118 H (70-110) mg/dL Calcium (8.4-10.2) mg/dL Total Protein (6.3-8.2) g/dL Albumin (3.5-5.0) g/dL 09/13/22 09/13/22 09/13/22 Range/Units 02:22 04:21 04:21 RBC 3.02 L (4.30-5.90) m/uL Hgb 9.3 L (13.0-17.5) gm/dL Hct 27.0 L (39.0-53.0) % Potassium 3.3 L (3.5-5.1) mmol/L BUN 5 L (9-20) mg/dL Glucose 215 H (74-99) mg/dL POC Glucose (mg/dL) 357 H (70-110) mg/dL Calcium 8.1 L (8.4-10.2) mg/dL Total Protein 4.7 L (6.3-8.2) g/dL Albumin 2.6 L (3.5-5.0) g/dL 09/13/22 09/13/22 09/13/22 Range/Units 06:22 07:48 11:34 RBC (4.30-5.90) m/uL Hgb (13.0-17.5) gm/dL Hct (39.0-53.0) % Potassium 3.2 L (3.5-5.1) mmol/L BUN (9-20) mg/dL Glucose (74-99) mg/dL POC Glucose (mg/dL) 223 H 153 H (70-110) mg/dL Calcium (8.4-10.2) mg/dL Total Protein (6.3-8.2) g/dL Albumin (3.5-5.0) g/dL Microbiology - Last 24 Hours (Table) 09/11/22 03:52 Blood Culture - Preliminary Blood
[2022-09-13] MEDS: ANIDULAFUNGIN 100 MG in SODIUM CHLORIDE 0.9% 100 ML IVPB SCH (15:45)
[2022-09-13 16:39] LABS: Glucose,Whole Blood 116 mg/dL (70-110)
[2022-09-13] MEDS: LURASIDONE 60 MG TAB PO SCH (18:26)
[2022-09-13 20:38] LABS: Glucose,Whole Blood 97 mg/dL (70-110)
[2022-09-13] MEDS: MONTELUKAST 10 MG TAB PO SCH (20:45)
[2022-09-13] MEDS: ATORVASTATIN 20 MG TAB PO SCH (20:45)
[2022-09-13] MEDS: QUEtiapine 25 MG TAB PO SCH (20:58)
[2022-09-13 21:54] LABS: Glucose,Whole Blood 66 mg/dL (70-110)
[2022-09-13 22:17] LABS: Glucose,Whole Blood 122 mg/dL (70-110)
[2022-09-14] MEDS: METOCLOPRAMIDE 5 MG/ML 2 ML VIAL IVP SCH ×3 (00:42→16:31)
[2022-09-14] MEDS: ONDANSETRON 4 MG/2 ML VIAL IVP PRN (00:44)
[2022-09-14] MEDS: SODIUM CHLORIDE 0.9% 1,000 ML IV SCH ×3 (00:50→17:30)
[2022-09-14] MEDS: HYDROmorphone 0.5 MG/0.5 ML SYRINGE IVP PRN ×5 (00:50→20:33)
[2022-09-14 01:43] LABS: Glucose,Whole Blood 132 mg/dL (70-110)
[2022-09-14] MEDS: INSULIN ASPART (NovoLOG) 100 UNIT/ML VIAL SQ SCH ×8 (02:13→20:35)
[2022-09-14 05:56] LABS: HCT 26.3 % (39.0-53.0); HGB 9.1 gm/dL (13.0-17.5); MCH 31.2 pg (25.0-35.0); MCHC 34.8 g/dL (31.0-37.0); MCV 89.8 fL (80.0-100.0); Mean Platelet Volume 7.7; Platelet Count 196 k/uL (150-450); RBC 2.93 m/uL (4.30-5.90); RDW 13.2 % (11.5-15.5); WBC 4.7 k/uL (3.8-10.6)
[2022-09-14 06:07] LABS: African American GFR (CKD) >90 (>60 ml/min/1.73 sqM); Anion Gap 2 mmol/L; Blood Urea Nitrogen 4 mg/dL (9-20); Carbon Dioxide 28 mmol/L (22-30); Chloride 104 mmol/L (98-107); Glucose 230 mg/dL (74-99); Non-African American GFR(CKD) >90 (>60 ml/min/1.73 sqM); Potassium 4.1 mmol/L (3.5-5.1); Sodium 134 mmol/L (137-145)
[2022-09-14 06:26] LABS: Glucose,Whole Blood 300 mg/dL (70-110)
[2022-09-14] MEDS: LURASIDONE 40 MG TAB PO SCH (06:42)
[2022-09-14] MEDS: INSULIN DETEMIR (LEVEMIR) 100 UNIT/ML SYR SQ SCH (06:43)
[2022-09-14] MEDS: IPRATROPIUM-ALBUTEROL 3 ML NEB INHALATION SCH (07:53)
[2022-09-14] MEDS: BUDESONIDE 0.5 MG/2 ML NEBU INHALATION SCH ×2 (07:53→20:10)
[2022-09-14 08:36] LABS: Glucose,Whole Blood 154 mg/dL (70-110)
[2022-09-14] MEDS: PANTOPRAZOLE 40 MG/10 ML VIAL IVP SCH ×2 (08:40→20:33)
[2022-09-14] MEDS: ATROPINE OPHTH SOLN 1% 5ML BTL LEFT EYE SCH ×2 (08:43→20:36)
[2022-09-14] MEDS: prednisoLONE ACETATE 1% OPHTH DROPS 5 ML BTL RIGHT EYE SCH ×2 (08:44→20:37)
[2022-09-14] MEDS ORDERED: IPRATROPIUM-ALBUTEROL 3 ML NEB INHALATION PRN (08:52)
--- NOTE | 2022-09-14 09:30 | P.PN ---
Subjective Progress Note Date: 09/13/22 The patient is a 37-year-old male who is currently admitted to the hospital with diabetic ketoacidosis. Cardiology was consulted for sinus tachycardia, which has improved over his admission. Echocardiogram shows preserved LV function. The patient states he his pain all over. This has not improved throughout his admission. GENERAL: Well-appearing, well-nourished and in no acute distress. NECK: Supple without JVD or thyromegaly. LUNGS: Breath sounds clear to auscultation bilaterally. Respiration equal and unlabored. No wheezes, rales or rhonchi. HEART: Regular rate and rhythm without murmurs, rubs or gallops. S1 and S2 heard. EXTREMITIES: Normal range of motion, no edema. No clubbing or cyanosis. Peripheral pulses intact and strong. TELEMETRY: Sinus tachycardia in the low 100s LABS: WBC 5.4, hemoglobin 9.3, hematocrit 27.0, platelet 198, sodium 137, potassium 3.3, BUN 5, creatinine 0.71, AST 27, ALT 30, ALP 75 IMPRESSION: Sinus tachycardia Diabetic ketoacidosis Dyslipidemia Hypertension Medication noncompliance PLAN: Increase lisinopril for hypertension No further recommendations from the cardiac standpoint I am dictating on behalf of Dr Paul Costa's history/physical and ass essment/plan. Objective - Vital Signs Vital signs: Vital Signs Temp 98.4 F 09/13/22 04:00 Pulse 106 H 09/13/22 07:00 Resp 13 09/13/22 07:00 BP 138/98 09/13/22 07:00 Pulse Ox 96 09/13/22 07:00 FiO2 100 09/12/22 16:00 Intake & Output 09/12/22 09/13/22 09/13/22 18:59 06:59 18:59 Intake Total 2475 2665 Output Total 2400 2320 Balance 75 345 Weight 65 kg Intake: IV 1500 Sodium Chloride 0.9% 1, 1500 000 ml @ 125 mls/hr IV . Q8H [facility] Rx#:[id number] Intake, IV Titration 1925 125 Amount Potassium Chloride 20 meq 250 In Water For Injection 1 100ml.bag @ 50 mls/hr IVPB Q2H [facility] Rx#: [id number] Sodium Chloride 0.9% 1, 1675 125 000 ml @ 125 mls/hr IV . Q8H [facility] Rx#:[id number] Oral 550 1040 Output: Urine 2400 2320 Other: Voiding Method Urinal Urinal - Labs CBC & Chem 7: 09/14/22 05:31 09/14/22 05:31 Labs: Abnormal Lab Results - Last 24 Hours (Table) 09/12/22 09/12/22 09/12/22 Range/Units 11:15 16:39 20:34 RBC (4.30-5.90) m/uL Hgb (13.0-17.5) gm/dL Hct (39.0-53.0) % Potassium (3.5-5.1) mmol/L BUN (9-20) mg/dL Glucose (74-99) mg/dL POC Glucose (mg/dL) 174 H 154 H 118 H (70-110) mg/dL Calcium (8.4-10.2) mg/dL Total Protein (6.3-8.2) g/dL Albumin (3.5-5.0) g/dL 09/12/22 09/13/22 09/13/22 Range/Units 23:00 02:22 04:21 RBC 3.02 L (4.30-5.90) m/uL Hgb 9.3 L (13.0-17.5) gm/dL Hct 27.0 L (39.0-53.0) % Potassium 3.1 L (3.5-5.1) mmol/L BUN (9-20) mg/dL Glucose (74-99) mg/dL POC Glucose (mg/dL) 357 H (70-110) mg/dL Calcium (8.4-10.2) mg/dL Total Protein (6.3-8.2) g/dL Albumin (3.5-5.0) g/dL 09/13/22 09/13/22 09/13/22 Range/Units 04:21 06:22 07:48 RBC (4.30-5.90) m/uL Hgb (13.0-17.5) gm/dL Hct (39.0-53.0) % Potassium 3.3 L 3.2 L (3.5-5.1) mmol/L BUN 5 L (9-20) mg/dL Glucose 215 H (74-99) mg/dL POC Glucose (mg/dL) 223 H (70-110) mg/dL Calcium 8.1 L (8.4-10.2) mg/dL Total Protein 4.7 L (6.3-8.2) g/dL Albumin 2.6 L (3.5-5.0) g/dL Microbiology - Last 24 Hours (Table) 09/11/22 03:52 Blood Culture - Preliminary Blood
[2022-09-14] MEDS: amLODIPine 5 MG TAB PO SCH ×2 (09:35→20:35)
[2022-09-14] MEDS: lisinopriL 10 MG TAB PO SCH (09:35)
[2022-09-14] MEDS: QUEtiapine 50 MG TAB PO SCH ×2 (09:35→20:36)
[2022-09-14] MEDS: METOPROLOL TARTRATE 50 MG TAB PO SCH ×2 (09:35→20:35)
[2022-09-14] MEDS ORDERED: IV FLUID CONTINUATION 600 ML IV ONE (10:34)
[2022-09-14] MEDS ORDERED: DEXTROSE 50% SYRINGE 50 ML IVP ONE (10:38)
[2022-09-14] MEDS ORDERED: LIDOCAINE 2% INJ 20 MG/ML (2 ML VIAL) ONE (10:38)
[2022-09-14] MEDS ORDERED: PROPOFOL 10 MG/ML 20 ML VIAL IV ONE (10:38)
--- NOTE | 2022-09-14 10:38 | P.PN ---
Subjective Progress Note Date: 09/14/22 CHIEF COMPLAINT: Nausea and vomiting HISTORY OF PRESENT ILLNESS: Patient in ICU due to DKA and hematemesis with coffee ground emesis. Patient continues with epigastric pain. No further vomiting. Vitals stable. hgb 9.3-9.1 PHYSICAL EXAM: VITAL SIGNS: Reviewed. GENERAL: Well-developed in no acute distress. ABDOMEN: Soft. Nondistended. Epigastric tenderness NEUROLOGIC: Alert and oriented. Cranial nerves II through XII grossly intact. ASSESSMENT: 1. Anemia with episodes of coffee-ground emesis 2. Nausea and vomiting and abdominal pain 3. Gastric distention consistent with gastroparesis. Gastric distention not visualized on follow up Xray 4. DKA 5. History of gastritis, esophagitis and hiatal hernia on EGD from 04/13/22 PLAN: -Patient scheduled for EGD today -Continue PPI Physician Towel Distributor note has been reviewed by physician. Signing provider agrees with the documented findings, assessment, and plan of care. Objective - Vital Signs Vital signs: Vital Signs Temp 98.4 F 09/14/22 08:00 Pulse 102 H 09/14/22 10:00 Resp 12 09/14/22 10:00 BP 140/92 09/14/22 10:00 Pulse Ox 96 09/14/22 10:00 FiO2 100 09/12/22 16:00 Intake & Output 09/13/22 09/14/22 09/14/22 18:59 06:59 18:59 Intake Total 1575 1500 500 Output Total 1885 1400 1030 Balance -310 100 -530 Weight 66 kg Intake: IV 1375 1500 500 Sodium Chloride 0.9% 1, 1375 1500 500 000 ml @ 125 mls/hr IV . Q8H [facility] Rx#:[id number] Oral 200 Output: Urine 1885 1400 1030 Other: Voiding Method Urinal Urinal Urinal # Voids 1 - Labs CBC & Chem 7: 09/14/22 05:31 09/14/22 05:31 Labs: Abnormal Lab Results - Last 24 Hours (Table) 09/13/22 09/13/22 09/13/22 Range/Units 11:34 16:36 21:53 RBC (4.30-5.90) m/uL Hgb (13.0-17.5) gm/dL Hct (39.0-53.0) % Sodium (137-145) mmol/L BUN (9-20) mg/dL Glucose (74-99) mg/dL POC Glucose (mg/dL) 153 H 116 H 66 L (70-110) mg/dL Calcium (8.4-10.2) mg/dL 09/13/22 09/14/22 09/14/22 Range/Units 22:15 01:41 05:31 RBC 2.93 L (4.30-5.90) m/uL Hgb 9.1 L (13.0-17.5) gm/dL Hct 26.3 L (39.0-53.0) % Sodium (137-145) mmol/L BUN (9-20) mg/dL Glucose (74-99) mg/dL POC Glucose (mg/dL) 122 H 132 H (70-110) mg/dL Calcium (8.4-10.2) mg/dL 09/14/22 09/14/22 09/14/22 Range/Units 05:31 06:25 08:34 RBC (4.30-5.90) m/uL Hgb (13.0-17.5) gm/dL Hct (39.0-53.0) % Sodium 134 L (137-145) mmol/L BUN 4 L (9-20) mg/dL Glucose 230 H (74-99) mg/dL POC Glucose (mg/dL) 300 H 154 H (70-110) mg/dL Calcium 8.0 L (8.4-10.2) mg/dL Microbiology - Last 24 Hours (Table) 09/11/22 03:52 Blood Culture - Preliminary Blood
[2022-09-14 10:46] LABS: Glucose,Whole Blood 69 mg/dL (70-110)
--- NOTE | 2022-09-14 10:54 | P.OP ---
Date of Procedure: 09/14/22 Preoperative Diagnosis: Anemia Postoperative Diagnosis: Gastritis Esophagitis Procedure(s) Performed: EGD Anesthesia: MAC Surgeon: Armando Arreaga Pathology: other (Antrum, esophagus) Condition: stable Disposition: PACU Description of Procedure: The patient's placed on the endoscopy table in the lateral position. He received IV sedation. The gastroscope placed oropharynx passed in the esophagus and the stomach. Scope was placed through the pylorus. The first and second portion of the duodenum appeared normal. Scope was then brought back the antrum and this appeared mildly inflamed. A biopsies performed. The scope was then retroflexed and the remainder the stomach appeared normal. There was evidence of a sliding hiatal hernia. The GE junction was at 38 cm. The distal esophagus appeared mildly inflamed. A biopsy performed. The proximal esophagus appeared normal. Scope was withdrawn for patient. There is no evidence of any active upper GI bleed.
[2022-09-14 10:55] LABS: Glucose,Whole Blood 159 mg/dL (70-110)
[2022-09-14 11:09] VITALS: BMI 19.7
[2022-09-14] MEDS: TRIHEXYPHENIDYL 2 MG TAB PO SCH ×2 (11:23→20:36)
[2022-09-14 11:32] LABS: Glucose,Whole Blood 121 mg/dL (70-110)
--- NOTE | 2022-09-14 12:34 | P.PN ---
Subjective Progress Note Date: 09/14/22 Principal diagnosis: Acute DKA 36-year-old male patient, type 1 diabetes mellitus, got transferred to the intensive care unit as the patient's wound back into DKA based on morning labs. Noted the patient has type 1 diabetes mellitus and initially presented to the hospital because of DKA and his initial admission was back in 09/03/2022. He was treated by Dr. Dickerson and Dr. Mendoza, nevertheless, his blood sugars continued to be elevated and earlier this morning, the patient bounced back into DKA. Currently, he seems to be dehydrated. Most recent blood sugar is elevated and his blood sugar has been running high above 700. His serum bicarb is less than 5 and his anion gap is currently at 37. BUN is 15 and the patient is also sustained an acute kidney injury with a creatinine of 1.28. His white cell count is at 25 with a hemoglobin of 14.7 and a platelet count of 346. Based on that, the patient was restarted back on insulin drip which is currently running at 6 units an hour. We are trying to establish IV access to start resuscitating this patient with IV fluids and insulin drip. He is lethargic, encephalopathic, dehydrated, and he has been having emesis coffee-ground. No melanotic stools. The patient's echocardiogram shows an ejection fraction of 55-60%. He does have advanced diabetic gastroparesis, hypertensive heart disease and hyperlipidemia. Reevaluated today on 09/11/2022, patient continues to have intermittent episodes of vomiting and coffee-ground emesis. Hemoglobin is down to 11.2 today, it was 12.4 on 09/07/2022, patient continues to have a bit of leukocytosis, his electrolytes are normal and his anion gap is down to 11 renal functioning is normal. Bicarb remains a bit low at 17 however his anion gap is 11. Patient is on Protonix, is being followed by surgery regarding his coffee-ground emesis and his nausea vomiting and abdominal pain. Patient was felt to have gastric distention consistent with gastroparesis and he does have hiatal hernia as well as esophagitis, recommendation is to continue clear liquids, supportive care measures and PPI as well as antiemetics. EGD on this patient done on showed previous history of gastritis esophagitis and history of hernia Reevaluated today on 09/12/2022, patient remains in the ICU, continues to have intermittent episodes of coffee-ground emesis, hemoglobin is down to 10. Santos carson lost about 4 g of hemoglobin since his admission. Did not require any transfusions yet. Patient has severe esophagitis, he was on Diflucan, and now he was placed on eraxis by infectious disease. Patient is also on Protonix. No plans by surgery to perform EGD on this patient. They are recommending clear liquids and supportive care measures as well as PPIs anti-antiemetics. Considering the drop in hemoglobin and considering the ongoing blood losses, will keep the patient ICU for now. Electrolytes are abnormal being corrected as per protocol bicarb is 25 anion gap has resolved the lips count is 8.8 hemoglobin is 10 platelets are 207 Reevaluated today on 09/13/2022, patient is doing well, nonetheless his hemoglobin continues to drift down, and obviously the patient is having ongoing upper GI bleeding. Did not require any blood transfusions so far. Today's hemoglobin is 9.3, hemoglobin on admission was 14. 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 Diabetes hartley, his DKA has resolved, his anion gap has closed. Bicarb is 24 and his anion gap is 9. Potassium is a bit low at 3.3 being addressed as per protocol Patient was reevaluated today on 09/14/2022, doing better today, patient underwent EGD, and he was found to have mildly inflamed antrum. Biopsies were performed. Stomach was noted to be normal there was a small sliding hiatal h ernia distal esophagus also noted to be mildly inflamed no active bleeding was noted. Patient came back to the ICU, and I'm recommending we transfer the patient out of the ICU to a regular medical floor his hemoglobin today is 9.1, did not change much in the last 24 hours. His DKA has resolved and the patient is on oral diet is also on sliding scale insulin. Objective - Vital Signs Vital signs: Vital Signs Temp 98.1 F 09/14/22 11:00 Pulse 102 H 09/14/22 10:00 Resp 12 09/14/22 10:00 BP 147/88 09/14/22 11:00 Pulse Ox 96 09/14/22 10:00 FiO2 100 09/12/22 16:00 Intake & Output 09/13/22 09/14/22 09/14/22 18:59 06:59 18:59 Intake Total 1575 1500 925 Output Total 188 1400 1730 Balance -310 100 -805 Weight 66 kg 66 kg Intake: IV 1375 1500 925 Sodium Chloride 0.9% 1, 1375 1500 625 000 ml @ 125 mls/hr IV . Q8H [facility] Rx#:[id number] Oral 200 Output: Urine 1884 1400 1730 Other: Voiding Method Urinal Urinal Urinal # Voids 1 - Exam Physical Exam: Revealed 37-year-old white male in no distress, on room air. Head: Atraumatic normocephalic HEENT:[Neck is supple.] [No neck masses.] [No thyromegaly.] [No JVD.] Chest: [Clear throughout, no crackles, no rhonchi, no wheezes.] Cardiac Exam: [Normal S1 and S2, no S3 gallop, no murmur.] Abdomen: [Soft, nontender, no megaly, no rebound, no guarding, normal bowel sounds.] Extremities: [No clubbing, no edema, no cyanosis.] Neurological Exam: [No focal neurologic deficit.] Alert and oriented 3 Psychiatric: Normal mood affect and normal mental status examination. Skin: No rashes. - Labs CBC & Chem 7: 09/14/22 05:31 09/14/22 05:31 Labs: Abnormal Lab Results - Last 24 Hours (Table) 09/13/22 09/13/22 09/13/22 Range/Units 16:36 21:53 22:15 RBC (4.30-5.90) m/uL Hgb (13.0-17.5) gm/dL Hct (39.0-53.0) % Sodium (137-145) mmol/L BUN (9-20) mg/dL Glucose (74-99) mg/dL POC Glucose (mg/dL) 116 H 66 L 122 H (70-110) mg/dL Calcium (8.4-10.2) mg/dL 09/14/22 09/14/22 09/14/22 Range/Units 01:41 05:31 05:31 RBC 2.93 L (4.30-5.90) m/uL Hgb 9.1 L (13.0-17.5) gm/dL Hct 26.3 L (39.0-53.0) % Sodium 134 L (137-145) mmol/L BUN 4 L (9-20) mg/dL Glucose 230 H (74-99) mg/dL POC Glucose (mg/dL) 132 H (70-110) mg/dL Calcium 8.0 L (8.4-10.2) mg/dL 09/14/22 09/14/22 09/14/22 Range/Units 06:25 08:34 10:42 RBC (4.30-5.90) m/uL Hgb (13.0-17.5) gm/dL Hct (39.0-53.0) % Sodium (137-145) mmol/L BUN (9-20) mg/dL Glucose (74-99) mg/dL POC Glucose (mg/dL) 300 H 154 H 69 L (70-110) mg/dL Calcium (8.4-10.2) mg/dL 09/14/22 09/14/22 Range/Units 10:52 11:20 RBC (4.30-5.90) m/uL Hgb (13.0-17.5) gm/dL Hct (39.0-53.0) % Sodium (137-145) mmol/L BUN (9-20) mg/dL Glucose (74-99) mg/dL POC Glucose (mg/dL) 159 H 121 H (70-110) mg/dL Calcium (8.4-10.2) mg/dL Microbiology - Last 24 Hours (Table) 09/11/22 03:52 Blood Culture - Preliminary Blood Assessment and Plan Assessment: Impression: Acute DKA, resolved Acute anion gap is embolic acidosis, resolved Severe dehydration resolved. Acute kidney injury secondary to above Acute metabolic encephalopathy Type 1 diabetes Diabetic gastroparesis Diabetic neuropathy Coffee-ground emesis , and upper GI bleeding with gastritis/esophagitis, no further episodes or no findings of active bleeding noted on EGD. Benign essential hypertension Recommendation: Transfer patient to a medical surgical floor Continue IV fluids Continue eraxis, unless discontinued by infectious disease Continue IV Protonix Will follow as needed Time with Patient: Less than 30
[2022-09-14 12:45] LABS: Glucose,Whole Blood 130 mg/dL (70-110)
--- NOTE | 2022-09-14 15:27 | P.PN ---
Subjective Progress Note Date: 09/13/22 Principal diagnosis: Leukocytosis Patient is a 36-year-old male with a past medical history significant for insulin-dependent diabetes mellitus and diabetic gastroparesis and diabetic neuropathy did have a history of diabetic foot infection in addition to anxiety bipolar depression patient was brought into the hospital as the patient was noticed to have elevated blood sugar patient has been feeling nauseated and vomiting and complaining of generalized body aches patient has been diagnosed with DKA and is being treated appropriately patient did have a CT of the chest abdominal pelvis with no acute finding except thickened esophagus and the patient was noticed to have elevated white count probably this infectious disease consultation. On today's evaluation that is 09/13/2022 , the patient remains to be afebrile, the patient is breathing comfortably on room air, the patient denies having any chest pain or shortness of breath occasional cough, the patient did have have some nausea but no further vomiting has been reported , no abdominal pain and no diarrhea Patient white count is 5.4 today and a creatinine is 0.71 blood culture has been negative Objective - Vital Signs Vital signs: Vital Signs Temp 98.2 F 09/13/22 12:00 Pulse 93 09/13/22 12:00 Resp 18 09/13/22 12:00 BP 108/76 09/13/22 12:00 Pulse Ox 93 L 09/13/22 12:00 FiO2 100 09/12/22 16:00 Intake & Output 09/12/22 09/13/22 09/13/22 18:59 06:59 18:59 Intake Total 2475 2665 825 Output Total 2400 2320 400 Balance 75 345 425 Weight 65 kg Intake: IV 1500 625 Sodium Chloride 0.9% 1, 1500 625 000 ml @ 125 mls/hr IV . Q8H [facility] Rx#:[id number] Intake, IV Titration 1925 125 Amount Potassium Chloride 20 meq 250 In Water For Injection 1 100ml.bag @ 50 mls/hr IVPB Q2H [facility] Rx#: [id number] Sodium Chloride 0.9% 1, 1675 125 000 ml @ 125 mls/hr IV . Q8H [facility] Rx#:[id number] Oral 550 1040 200 Output: Urine 2400 2320 400 Other: Voiding Method Urinal Urinal Urinal - Exam GENERAL DESCRIPTION: Middle-aged male lying in bed in no distress RESPIRATORY SYSTEM: Unlabored breathing , decreased breath sounds at bases HEART: S1 S2 regular rate and rhythm , ABDOMEN: Soft , no tenderness EXTREMITIES: No edema feet - Labs CBC & Chem 7: 09/14/22 05:31 09/14/22 05:31 Labs: Abnormal Lab Results - Last 24 Hours (Table) 09/12/22 09/12/22 09/12/22 Range/Units 16:39 20:34 23:00 RBC (4.30-5.90) m/uL Hgb (13.0-17.5) gm/dL Hct (39.0-53.0) % Potassium 3.1 L (3.5-5.1) mmol/L BUN (9-20) mg/dL Glucose (74-99) mg/dL POC Glucose (mg/dL) 154 H 118 H (70-110) mg/dL Calcium (8.4-10.2) mg/dL Total Protein (6.3-8.2) g/dL Albumin (3.5-5.0) g/dL 09/13/22 09/13/22 09/13/22 Range/Units 02:22 04:21 04:21 RBC 3.02 L (4.30-5.90) m/uL Hgb 9.3 L (13.0-17.5) gm/dL Hct 27.0 L (39.0-53.0) % Potassium 3.3 L (3.5-5.1) mmol/L BUN 5 L (9-20) mg/dL Glucose 215 H (74-99) mg/dL POC Glucose (mg/dL) 357 H (70-110) mg/dL Calcium 8.1 L (8.4-10.2) mg/dL Total Protein 4.7 L (6.3-8.2) g/dL Albumin 2.6 L (3.5-5.0) g/dL 09/13/22 09/13/22 09/13/22 Range/Units 06:22 07:48 11:34 RBC (4.30-5.90) m/uL Hgb (13.0-17.5) gm/dL Hct (39.0-53.0) % Potassium 3.2 L (3.5-5.1) mmol/L BUN (9-20) mg/dL Glucose (74-99) mg/dL POC Glucose (mg/dL) 223 H 153 H (70-110) mg/dL Calcium (8.4-10.2) mg/dL Total Protein (6.3-8.2) g/dL Albumin (3.5-5.0) g/dL Microbiology - Last 24 Hours (Table) 09/11/22 03:52 Blood Culture - Preliminary Blood Assessment and Plan (1) Esophagitis Current Visit: No Status: Acute Code(s): K20.90 - ESOPHAGITIS, UNSPECIFIED WITHOUT BLEEDING SNOMED Code(s): 85516733 (2) Leukocytosis Current Visit: No Status: Acute Code(s): D72.829 - ELEVATED WHITE BLOOD CELL COUNT, UNSPECIFIED SNOMED Code(s): 695121400 Plan: 1patient with recurrent leukocytosis more likely related to his DKA as the patient white count initially improved after his DKA resolved now with recurrence of his symptoms especially nausea vomiting and the patient did have a positive serum acetone and white count is up to 25,000 and likely related DKA underlying infection is less likely but not entirely excluded, patient did have a CT of abdominal pelvis and concern for possible thickening of esophagus questionably related to his recurrent episode of vomiting versus esophagitis , patient is currently maintained on Eraxis and the patient white count has normalized rather quickly more likely related to his DKA, continue with Eraxis for now 2-patient did have elevated pro-calcitonin however no significant cough or sputum production breathing comfortably on room a chest x-ray was negative clinically doubt pneumonia, there is no need for antibiotic therapy Dictation was produced using [employer] dictation software. please excuse any grammatical, word or spelling errors. Time with Patient: Less than 30
--- NOTE | 2022-09-14 15:29 | P.PN ---
Subjective Progress Note Date: 09/14/22 Principal diagnosis: Leukocytosis Patient is a 36-year-old male with a past medical history significant for insulin-dependent diabetes mellitus and diabetic gastroparesis and diabetic neuropathy did have a history of diabetic foot infection in addition to anxiety bipolar depression patient was brought into the hospital as the patient was noticed to have elevated blood sugar patient has been feeling nauseated and vomiting and complaining of generalized body aches patient has been diagnosed with DKA and is being treated appropriately patient did have a CT of the chest abdominal pelvis with no acute finding except thickened esophagus and the patient was noticed to have elevated white count probably this infectious disease consultation. Patient is status post EGD completed on 09/14/2022 with evidence of esophagitis biopsy has been obtained On today's evaluation that is 09/14/2022 , the patient denies any fever or any chills, the patient is breathing comfortably on room air, the patient denies having any chest pain or shortness of breath occasional cough, the patient did have have some nausea but no further vomiting has been reported , no abdominal pain and no diarrhea, no new symptoms Patient white count is normal at 4.7, hemoglobin is 9.1, creatinine 0.67 blood culture has been negative Objective - Vital Signs Vital signs: Vital Signs Temp 98.1 F 09/14/22 11:00 Pulse 94 09/14/22 12:00 Resp 10 L 09/14/22 12:00 BP 130/88 09/14/22 12:00 Pulse Ox 98 09/14/22 12:00 FiO2 100 09/12/22 16:00 Intake & Output 09/13/22 09/14/22 09/14/22 18:59 06:59 18:59 Intake Total 1575 1500 925 Output Total 1885 1400 1730 Balance -310 100 -805 Weight 66 kg 66 kg Intake: IV 1375 1500 925 Sodium Chloride 0.9% 1, 1375 1500 625 000 ml @ 125 mls/hr IV . Q8H [facility] Rx#:[id number] Oral 200 Output: Urine 1885 1400 1730 Other: Voiding Method Urinal Urinal Urinal # Voids 1 - Exam GENERAL DESCRIPTION: Middle-aged male lying in bed in no distress RESPIRATORY SYSTEM: Unlabored breathing , decreased breath sounds at bases HEART: S1 S2 regular rate and rhythm , ABDOMEN: Soft , no tenderness EXTREMITIES: No edema feet - Labs CBC & Chem 7: 09/14/22 05:31 09/14/22 05:31 Labs: Abnormal Lab Results - Last 24 Hours (Table) 09/13/22 09/13/22 09/13/22 Range/Units 16:36 21:53 22:15 RBC (4.30-5.90) m/uL Hgb (13.0-17.5) gm/dL Hct (39.0-53.0) % Sodium (137-145) mmol/L BUN (9-20) mg/dL Glucose (74-99) mg/dL POC Glucose (mg/dL) 116 H 66 L 122 H (70-110) mg/dL Calcium (8.4-10.2) mg/dL 09/14/22 09/14/22 09/14/22 Range/Units 01:41 05:31 05:31 RBC 2.93 L (4.30-5.90) m/uL Hgb 9.1 L (13.0-17.5) gm/dL Hct 26.3 L (39.0-53.0) % Sodium 134 L (137-145) mmol/L BUN 4 L (9-20) mg/dL Glucose 230 H (74-99) mg/dL POC Glucose (mg/dL) 132 H (70-110) mg/dL Calcium 8.0 L (8.4-10.2) mg/dL 09/14/22 09/14/22 09/14/22 Range/Units 06:25 08:34 10:42 RBC (4.30-5.90) m/uL Hgb (13.0-17.5) gm/dL Hct (39.0-53.0) % Sodium (137-145) mmol/L BUN (9-20) mg/dL Glucose (74-99) mg/dL POC Glucose (mg/dL) 300 H 154 H 69 L (70-110) mg/dL Calcium (8.4-10.2) mg/dL 09/14/22 09/14/22 09/14/22 Range/Units 10:52 11:20 12:44 RBC (4.30-5.90) m/uL Hgb (13.0-17.5) gm/dL Hct (39.0-53.0) % Sodium (137-145) mmol/L BUN (9-20) mg/dL Glucose (74-99) mg/dL POC Glucose (mg/dL) 159 H 121 H 130 H (70-110) mg/dL Calcium (8.4-10.2) mg/dL Microbiology - Last 24 Hours (Table) 09/11/22 03:52 Blood Culture - Preliminary Blood Assessment and Plan (1) Esophagitis Current Visit: No Status: Acute Code(s): K20.90 - ESOPHAGITIS, UNSPECIFIED WITHOUT BLEEDING SNOMED Code(s): 57432234 (2) Leukocytosis Current Visit: No Status: Acute Code(s): D72.829 - ELEVATED WHITE BLOOD CELL COUNT, UNSPECIFIED SNOMED Code(s): 895604358 Plan: 1patient did have elevated pro-calcitonin however no significant cough or sputum production breathing comfortably on room a chest x-ray was negative clinically doubt pneumonia, there is no need for antibiotic therapy 2-patient with leukocytosis possibly related to DKA and the patient not running any fever and white count normalized quickly the patient did have evidence of esophagitis and the patient is status post EGD and biopsy reports will be followed for now continue with [facility] the bedside questions were answered Dictation was produced using [employer] dictation software. please excuse any grammatical, word or spelling errors. Time with Patient: Less than 30
[2022-09-14] MEDS: ANIDULAFUNGIN 100 MG in SODIUM CHLORIDE 0.9% 100 ML IVPB SCH (16:31)
[2022-09-14 16:39] LABS: Glucose,Whole Blood 86 mg/dL (70-110)
[2022-09-14] MEDS: LURASIDONE 60 MG TAB PO SCH (17:36)
[2022-09-14] MEDS: LORazepam 2 MG/ML INJ IV PRN (17:41)
[2022-09-14 20:27] LABS: Glucose,Whole Blood 162 mg/dL (70-110)
[2022-09-14] MEDS: MONTELUKAST 10 MG TAB PO SCH (20:35)
[2022-09-14] MEDS: ATORVASTATIN 20 MG TAB PO SCH (20:35)
[2022-09-14] MEDS: QUEtiapine 25 MG TAB PO SCH (20:36)
[2022-09-14 21:42] LABS: Glucose,Whole Blood 171 mg/dL (70-110)
[2022-09-15] MEDS: SODIUM CHLORIDE 0.9% 1,000 ML IV SCH ×4 (00:41→21:39)
[2022-09-15] MEDS: HYDROmorphone 0.5 MG/0.5 ML SYRINGE IVP PRN ×5 (00:41→20:36)
[2022-09-15] MEDS: METOCLOPRAMIDE 5 MG/ML 2 ML VIAL IVP SCH ×3 (00:42→15:00)
--- NOTE | 2022-09-15 01:34 | PN ---
PROGRESS NOTE SUBJECTIVE: A 37-year-old white male, who appears to be getting better from his esophagitis due to fungal infection with IV his blood pressure is diminishing. Mental health is stable. Hypertension is stabilizing. OBJECTIVE: VITAL SIGNS: Respiratory rate 12 to 16, blood pressure 140s over 80s, temp 98.7, pulse 75, O2 saturation 99% on room air. CARDIOVASCULAR: S1, S2. LUNGS: Decreased breath sounds. GI: Soft. HEMATOLOGY: Negative Homans. PSYCH: Fair mood and affect. PLAN: Continue current treatments. Accu-Chek protocol. Start his home insulin. He will use breathing treatments. Continue fungal esophagitis. Possible discharge in 24 to 48 hours. MMODL / IJN: [id number] /
[2022-09-15 02:04] LABS: Glucose,Whole Blood 148 mg/dL (70-110)
[2022-09-15] MEDS: INSULIN ASPART (NovoLOG) 100 UNIT/ML VIAL SQ SCH ×8 (02:22→21:40)
[2022-09-15 06:15] LABS: Glucose,Whole Blood 356 mg/dL (70-110)
[2022-09-15] MEDS: INSULIN DETEMIR (LEVEMIR) 100 UNIT/ML SYR SQ SCH (06:38)
[2022-09-15] MEDS: LORazepam 2 MG/ML INJ IV PRN ×3 (06:45→21:49)
[2022-09-15] MEDS: BUDESONIDE 0.5 MG/2 ML NEBU INHALATION SCH ×2 (07:41→19:57)
[2022-09-15] MEDS: lisinopriL 10 MG TAB PO SCH (08:40)
[2022-09-15] MEDS: METOPROLOL TARTRATE 50 MG TAB PO SCH ×2 (08:40→20:32)
[2022-09-15] MEDS: amLODIPine 5 MG TAB PO SCH ×2 (08:40→20:32)
[2022-09-15] MEDS: QUEtiapine 50 MG TAB PO SCH ×2 (08:41→21:38)
[2022-09-15] MEDS: LURASIDONE 40 MG TAB PO SCH (08:41)
[2022-09-15] MEDS: TRIHEXYPHENIDYL 2 MG TAB PO SCH ×2 (08:41→20:33)
[2022-09-15] MEDS: PANTOPRAZOLE 40 MG/10 ML VIAL IVP SCH ×2 (08:42→20:32)
[2022-09-15] MEDS: ATROPINE OPHTH SOLN 1% 5ML BTL LEFT EYE SCH ×2 (08:42→22:16)
[2022-09-15] MEDS: prednisoLONE ACETATE 1% OPHTH DROPS 5 ML BTL RIGHT EYE SCH ×2 (08:43→22:16)
--- NOTE | 2022-09-15 10:44 | P.PN ---
Subjective Progress Note Date: 09/15/22 CHIEF COMPLAINT: Nausea and vomiting HISTORY OF PRESENT ILLNESS: Patient transferred out of the ICU. He is tolerating regular diet. And only had a small amount of nausea. No vomiting. Reports no abdominal pain. Status post EGD revealing gastritis and esophagitis. PHYSICAL EXAM: VITAL SIGNS: Reviewed. GENERAL: Well-developed in no acute distress. ABDOMEN: Soft. Nondistended. Nontender NEUROLOGIC: Alert and oriented. Cranial nerves II through XII grossly intact. ASSESSMENT: 1. Anemia with episodes of coffee-ground emesis status post EGD 2. Nausea and vomiting and abdominal pain improved 3. Gastric distention consistent with gastroparesis. Gastric distention not visualized on follow up Xray 4. DKA 5. History of gastritis, esophagitis and hiatal hernia on EGD from 04/13/22 PLAN: -Continue regular diet -Continue PPI -If patient's hemoglobin drops then recommend colonoscopy on Sunday Physician [employer] note has been reviewed by physician. Signing provider agrees with the documented findings, assessment, and plan of care. Objective - Vital Signs Vital signs: Vital Signs Temp 98.4 F 09/15/22 07:49 Pulse 110 H 09/15/22 07:49 Resp 18 09/15/22 07:49 BP 146/93 09/15/22 07:49 Pulse Ox 96 09/15/22 07:49 FiO2 100 09/12/22 16:00 Intake & Output 09/14/22 09/15/22 09/15/22 18:59 06:59 18:59 Intake Total 925 Output Total 3330 3250 100 Balance -2405 -3250 -100 Weight 66 kg Intake: IV 925 Sodium Chloride 0.9% 1, 625 000 ml @ 125 mls/hr IV . Q8H [facility] Rx#:[id number] Output: Urine 3330 3250 100 Other: Voiding Method Urinal Urinal # Voids 2 - Labs CBC & Chem 7: 09/14/22 05:31 09/14/22 05:31 Labs: Abnormal Lab Results - Last 24 Hours (Table) 09/14/22 09/14/22 09/14/22 Range/Units 10:42 10:52 11:20 POC Glucose (mg/dL) 69 L 159 H 121 H (70-110) mg/dL 09/14/22 09/14/22 09/14/22 Range/Units 12:44 20:25 21:40 POC Glucose (mg/dL) 130 H 162 H 171 H (70-110) mg/dL 09/15/22 09/15/22 Range/Units 02:02 06:13 POC Glucose (mg/dL) 148 H 356 H (70-110) mg/dL Microbiology - Last 24 Hours (Table) 09/11/22 03:52 Blood Culture - Preliminary Blood
[2022-09-15 11:05] LABS: HCT 31.5 % (39.0-53.0); HGB 11.2 gm/dL (13.0-17.5); MCH 31.4 pg (25.0-35.0); MCHC 35.7 g/dL (31.0-37.0); MCV 88.1 fL (80.0-100.0); Mean Platelet Volume 7.5; Platelet Count 300 k/uL (150-450); RBC 3.58 m/uL (4.30-5.90); RDW 13.2 % (11.5-15.5)
[2022-09-15 11:14] LABS: Glucose,Whole Blood 80 mg/dL (70-110)
[2022-09-15 11:42] LABS: Glucose,Whole Blood 94 mg/dL (70-110)
[2022-09-15] MEDS: ANIDULAFUNGIN 100 MG in SODIUM CHLORIDE 0.9% 100 ML IVPB SCH (14:57)
--- NOTE | 2022-09-15 16:11 | P.PN ---
Subjective Progress Note Date: 09/15/22 Principal diagnosis: Leukocytosis Patient is a 36-year-old male with a past medical history significant for insulin-dependent diabetes mellitus and diabetic gastroparesis and diabetic neuropathy did have a history of diabetic foot infection in addition to anxiety bipolar depression patient was brought into the hospital as the patient was noticed to have elevated blood sugar patient has been feeling nauseated and vomiting and complaining of generalized body aches patient has been diagnosed with DKA and is being treated appropriately patient did have a CT of the chest abdominal pelvis with no acute finding except thickened esophagus and the patient was noticed to have elevated white count probably this infectious disease consultation. Patient is status post EGD completed on 09/14/2022 with evidence of esophagitis biopsy has been obtained On today's evaluation that is 09/15/2022 , the patient remains to be afebrile, the patient is breathing comfortably on room air, the patient denies having any chest pain or shortness of breath occasional cough, the patient denies nausea or vomiting and no abdominal pain and no diarrhea, no new symptoms Patient white count is normal at 6.0, hemoglobin is 11.2, blood culture has been negative Objective - Vital Signs Vital signs: Vital Signs Temp 98.4 F 09/15/22 07:49 Pulse 94 09/15/22 11:39 Resp 16 09/15/22 11:39 BP 134/87 09/15/22 11:39 Pulse Ox 98 09/15/22 11:39 FiO2 100 09/12/22 16:00 Intake & Output 09/14/22 09/15/22 09/15/22 18:59 06:59 18:59 Intake Total 925 Output Total 3330 3250 100 Balance -2405 -3250 -100 Weight 66 kg Intake: IV 925 Sodium Chloride 0.9% 1, 625 000 ml @ 125 mls/hr IV . Q8H [facility] Rx#:[id number] Output: Urine 3330 3250 100 Other: Voiding Method Urinal Urinal # Voids 2 - Exam GENERAL DESCRIPTION: Middle-aged male lying in bed in no distress RESPIRATORY SYSTEM: Unlabored breathing , decreased breath sounds at bases HEART: S1 S2 regular rate and rhythm , ABDOMEN: Soft , no tenderness EXTREMITIES: No edema feet - Labs CBC & Chem 7: 09/15/22 10:53 09/14/22 05:31 Labs: Abnormal Lab Results - Last 24 Hours (Table) 09/14/22 09/14/22 09/14/22 Range/Units 12:44 20:25 21:40 RBC (4.30-5.90) m/uL Hgb (13.0-17.5) gm/dL Hct (39.0-53.0) % POC Glucose (mg/dL) 130 H 162 H 171 H (70-110) mg/dL 09/15/22 09/15/22 09/15/22 Range/Units 02:02 06:13 10:53 RBC 3.58 L (4.30-5.90) m/uL Hgb 11.2 L (13.0-17.5) gm/dL Hct 31.5 L (39.0-53.0) % POC Glucose (mg/dL) 148 H 356 H (70-110) mg/dL Microbiology - Last 24 Hours (Table) 09/11/22 03:52 Blood Culture - Preliminary Blood Assessment and Plan (1) Esophagitis Current Visit: No Status: Acute Code(s): K20.90 - ESOPHAGITIS, UNSPECIFIED WITHOUT BLEEDING SNOMED Code(s): 33969406 (2) Leukocytosis Current Visit: No Status: Acute Code(s): D72.829 - ELEVATED WHITE BLOOD CELL COUNT, UNSPECIFIED SNOMED Code(s): 221465258 Plan: 1patient did have elevated pro-calcitonin however no significant cough or sputum production breathing comfortably on room a chest x-ray was negative clinically doubt pneumonia, there is no need for antibiotic therapy 2-patient with leukocytosis possibly related to DKA and the patient not running any fever and white count normalized quickly the patient did have evidence of esophagitis and the patient is status post EGD and biopsy reports did shows erosive gastritis H. pylori was negative, fungal stains are currently pending, patient to continue with Eraxis 1 waiting for the final report on the surgical biopsy Dictation was produced using [employer] dictation software. please excuse any grammatical, word or spelling errors. Time with Patient: Less than 30
[2022-09-15 16:15] LABS: Glucose,Whole Blood 212 mg/dL (70-110)
[2022-09-15] MEDS: LURASIDONE 60 MG TAB PO SCH (17:32)
[2022-09-15] MEDS: ATORVASTATIN 20 MG TAB PO SCH (20:32)
[2022-09-15] MEDS: MONTELUKAST 10 MG TAB PO SCH (20:32)
[2022-09-15] MEDS: QUEtiapine 25 MG TAB PO SCH (20:32)
[2022-09-15 20:36] LABS: Glucose,Whole Blood 185 mg/dL (70-110)
--- NOTE | 2022-09-15 22:16 | P.PN ---
Progress Note - Text Progress Note Date: 09/15/22 Presenting complaint: Tired 09/15/2022: I'm rounding for Dr. Wisam Vickers. Patient is laying in bed. Eating at least about 50%. Once the patient to sit up in a chair. 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 Patient's EGD revealed gastritis and esophagitis. Active Medications Albuterol/Ipratropium (Ipratropium-Albuterol 3 Ml Neb) 3 ml INHALATION RT-QID PRN PRN Reason: Shortness Of Breath Or Wheezing Amlodipine Besylate (Amlodipine 5 Mg Tab) 5 mg PO BID [facility] Last Admin: 09/15/22 20:32 Dose: 5 mg Atorvastatin Calcium (Atorvastatin 20 Mg Tab) 20 mg PO HS [facility] Last Admin: 09/15/22 20:32 Dose: 20 mg Atropine Sulfate (Atropine Ophth Soln 1% 5ml Btl) 1 drops LEFT EYE BID [facility] Last Admin: 09/15/22 08:42 Dose: Not Given Budesonide (Budesonide 0.5 Mg/2 Ml Nebu) 0.5 mg INHALATION RT-BID [facility] Last Admin: 09/15/22 19:57 Dose: Not Given Carbamazepine (Carbamazepine Chew 100 Mg Chew) 100 mg PO BID [facility] Last Admin: 09/15/22 08:42 Dose: 100 mg Clonidine HCl (Clonidine 0.2 Mg/24hr Patch) 1 patch TRANSDERM Q7D [facility] Last Admin: 09/12/22 00:18 Dose: 1 patch Dextrose/Water (Dextrose 50% Syringe 50 Ml) 25 ml IVP PER PROTOCOL PRN; Protocol PRN Reason: Hypoglycemia Dextrose/Water (Dextrose 50% Syringe 50 Ml) 50 ml IVP PER PROTOCOL PRN; Protocol PRN Reason: Hypoglycemia Glucagon (Glucagon 1 Mg/Ml Vial) 1 mg IM ONCE PRN PRN Reason: Hypoglycemia Hydromorphone HCl (Hydromorphone 0.5 Mg/0.5 Ml Syringe) 0.5 mg IVP Q4HR PRN PRN Reason: Pain Last Admin: 09/15/22 20:36 Dose: 0.5 mg Sodium Chloride (Saline 0.9%) 1,000 mls @ 125 mls/hr IV .Q8H [facility] Last Admin: 09/15/22 21:39 Dose: 125 mls/hr Anidulafungin 100 mg/ Sodium (Chloride) 100 mls @ 84 mls/hr IVPB DAILY@1600 [facility]; Protocol Last Admin: 09/15/22 14:57 Dose: 84 mls/hr Insulin Aspart (Insulin Aspart (Novolog) 100 Unit/Ml Vial) 7 unit 0.1 unit/kg (7 unit) SQ AC-TID [facility] Last Admin: 09/15/22 17:12 Dose: Not Given Insulin Aspart (Insulin Aspart (Novolog) 100 Unit/Ml Vial) 0 unit SQ [id number] [facility]; Protocol Last Admin: 09/15/22 21:40 Dose: 2 unit Insulin Detemir (Insulin Detemir (Levemir) 100 Unit/Ml Syr) 20 unit 0.3 unit/kg (20 unit) SQ DAILY@0700 [facility] Last Admin: 09/15/22 06:38 Dose: 20 unit Lisinopril (Lisinopril 10 Mg Tab) 30 mg PO DAILY [facility] Last Admin: 09/15/22 08:40 Dose: 30 mg Lorazepam (Lorazepam 2 Mg/Ml Inj) 0.5 mg IV Q6HR PRN PRN Reason: Anxiety Last Admin: 09/15/22 21:49 Dose: 0.5 mg Lurasidone HCl (Lurasidone 40 Mg Tab) 40 mg PO W/BRKFST [facility] Last Admin: 09/15/22 08:41 Dose: 40 mg Lurasidone HCl (Lurasidone 60 Mg Tab) 120 mg PO W/SUPPER [facility] Last Admin: 09/15/22 17:32 Dose: Not Given Methocarbamol (Methocarbamol 750 Mg Tab) 750 mg PO BID PRN PRN Reason: Muscle Spasm Last Admin: 09/09/22 16:50 Dose: 750 mg Metoclopramide HCl (Metoclopramide 5 Mg/Ml 2 Ml Vial) 10 mg IVP Q8HR [facility] Last Admin: 09/15/22 15:00 Dose: 10 mg Metoprolol Tartrate (Metoprolol Tartrate 50 Mg Tab) 50 mg PO BID [facility] Last Admin: 09/15/22 20:32 Dose: 50 mg Miscellaneous Information (Magnesium Replacement Protocol 1 Each Misc) 1 each MISCELLANE DAILY PRN; Protocol PRN Reason: Per Protocol Miscellaneous Information (Potassium Replacement Protocol 1 Each Misc) 1 each MISCELLANE DAILY PRN PRN Reason: Per Protocol Montelukast Sodium (Montelukast 10 Mg Tab) 10 mg PO HS [facility] Last Admin: 09/15/22 20:32 Dose: 10 mg Naloxone HCl (Naloxone 0.4 Mg/Ml 1 Ml Vial) 0.2 mg IV Q2M PRN PRN Reason: Opioid Reversal Ondansetron HCl (Ondansetron 4 Mg/2 Ml Vial) 4 mg IVP Q6HR PRN PRN Reason: Nausea And Vomiting Last Admin: 09/14/22 00:44 Dose: 4 mg Pantoprazole Sodium (Pantoprazole 40 Mg/10 Ml Vial) 40 mg IVP BID [facility] Last Admin: 09/15/22 20:32 Dose: 40 mg Prednisolone Acetate (Prednisolone Acetate 1% Ophth Drops 5 Ml Btl) 1 drops RIGHT EYE BID [facility] Last Admin: 09/15/22 08:43 Dose: Not Given Quetiapine Fumarate (Quetiapine 25 Mg Tab) 25 mg PO HS [facility] Last Admin: 09/15/22 20:32 Dose: 25 mg Quetiapine Fumarate (Quetiapine 50 Mg Tab) 50 mg PO BID [facility] Last Admin: 09/15/22 21:38 Dose: 50 mg Sumatriptan Succinate (Sumatriptan Succinate 50 Mg Tab) 100 mg PO DAILY PRN PRN Reason: Migraine Headache Trihexyphenidyl HCl (Trihexyphenidyl 2 Mg Tab) 2 mg PO DAILY [facility] Last Admin: 09/15/22 08:41 Dose: 2 mg Trihexyphenidyl HCl (Trihexyphenidyl 2 Mg Tab) 4 mg PO HS [facility] Last Admin: 09/15/22 20:33 Dose: 4 mg Zolpidem Tartrate (Zolpidem 5 Mg Tab) 5 mg PO HS PRN PRN Reason: Insomnia Last Admin: 09/08/22 00:11 Dose: 5 mg On examination: VITAL SIGNS: [97.9, 96, 16, 11/72, 98% room air] GENERAL APPEARANCE: Average build. Lying in bed, not in distress. HEENT: Normal external appearance of nose and ear. Oral cavity normal EYES: Poor vision. Limited to hand movements NECK: JVD not raised. Mass not palpable. RESPIRATORY: Respiratory effort normal. Lungs clear to auscultation. CARDIOVASCULAR: First and second sounds normal. No edema. ABDOMEN: Soft. Liver and spleen not palpable. No tenderness. No mass palpable. PSYCHIATRY: Alert and oriented x3. Mood and affect. Anxious INVESTIGATIONS, reviewed in the clinical context: White count 6 hemoglobin 11.2 platelets 300 Assessment and plan: -Leukocytosis is likely secondary to DKA. Being followed by ID. Currently no obvious source of infection -DKA, resolved -Erosive gastritis as per EGD. PPI -Upper GI bleed with coffee-ground emesis secondary to gastritis. Status post EGD. -Probable gastroparesis secondary to diabetes -Diabetes mellitus type 1 On Levemir. Follow Accu-Cheks -Diabetic neuropathy -Acute kidney injury, Resolved -Bipolar. Seroquel. Latuda -Essential hypertension Amlodipine 5 mg twice a day. Zestril. Continue current medications. Sitting up in a chair. Increase activity. Change Reglan to by mouth.
[2022-09-16 01:58] LABS: Glucose,Whole Blood 332 mg/dL (70-110)
[2022-09-16] MEDS: INSULIN ASPART (NovoLOG) 100 UNIT/ML VIAL SQ SCH ×8 (02:03→21:12)
[2022-09-16 06:11] LABS: Glucose,Whole Blood 310 mg/dL (70-110)
[2022-09-16] MEDS: HYDROmorphone 0.5 MG/0.5 ML SYRINGE IVP PRN ×4 (06:33→21:08)
[2022-09-16] MEDS: INSULIN DETEMIR (LEVEMIR) 100 UNIT/ML SYR SQ SCH (06:52)
[2022-09-16 08:25] LABS: ALT 17 U/L (4-49); AST 22 U/L (17-59); African American GFR (CKD) >90 (>60 ml/min/1.73 sqM); Albumin/Globulin Ratio 1.3; Alkaline Phosphatase 105 U/L (38-126); Anion Gap 6 mmol/L; Basophils % (A) 0 %; Blood Urea Nitrogen 9 mg/dL (9-20); Calcium 8.4 mg/dL (8.4-10.2); Carbon Dioxide 25 mmol/L (22-30); Chloride 102 mmol/L (98-107); Eosinophils # (A) 0.1 k/uL (0-0.7); Eosinophils % (A) 1 %; Globulin 2.3 g/dL; Glucose 334 mg/dL (74-99); HCT 33.3 % (39.0-53.0); HGB 11.2 gm/dL (13.0-17.5); Lymphocytes # (A) 1.7 k/uL (1.0-4.8); Lymphocytes % (A) 22 %; MCH 30.8 pg (25.0-35.0); MCHC 33.6 g/dL (31.0-37.0); MCV 91.8 fL (80.0-100.0); Mean Platelet Volume 8.9; Monocytes # (A) 0.6 k/uL (0-1.0); Monocytes % (A) 8 %; Neutrophils # (A) 5.2 k/uL (1.3-7.7); Neutrophils % (A) 68 %; Non-African American GFR(CKD) >90 (>60 ml/min/1.73 sqM); Platelet Count 304 k/uL (150-450); RBC 3.63 m/uL (4.30-5.90); RDW 13.8 % (11.5-15.5); Sodium 133 mmol/L (137-145); Total Bilirubin 0.4 mg/dL (0.2-1.3); Total Protein 5.3 g/dL (6.3-8.2); WBC 7.7 k/uL (3.8-10.6)
[2022-09-16 08:38] LABS: Potassium 4.3 mmol/L (3.5-5.1)
[2022-09-16] MEDS: PANTOPRAZOLE 40 MG/10 ML VIAL IVP SCH ×2 (09:35→21:33)
[2022-09-16] MEDS: amLODIPine 5 MG TAB PO SCH ×2 (09:36→21:09)
[2022-09-16] MEDS: METOCLOPRAMIDE 5 MG TAB PO SCH ×3 (09:36→16:52)
[2022-09-16] MEDS: lisinopriL 10 MG TAB PO SCH (09:36)
[2022-09-16] MEDS: METOPROLOL TARTRATE 50 MG TAB PO SCH ×2 (09:36→21:09)
[2022-09-16] MEDS: QUEtiapine 50 MG TAB PO SCH ×2 (09:36→21:09)
[2022-09-16] MEDS: LURASIDONE 40 MG TAB PO SCH (09:37)
[2022-09-16] MEDS: TRIHEXYPHENIDYL 2 MG TAB PO SCH ×2 (09:37→21:09)
[2022-09-16] MEDS: SODIUM CHLORIDE 0.9% 1,000 ML IV SCH ×2 (09:38→16:53)
[2022-09-16] MEDS: LORazepam 2 MG/ML INJ IV PRN (09:40)
[2022-09-16] MEDS: ATROPINE OPHTH SOLN 1% 5ML BTL LEFT EYE SCH ×2 (09:43→21:31)
--- NOTE | 2022-09-16 09:47 | P.PN ---
Subjective Progress Note Date: 09/16/22 Principal diagnosis: Gastroparesis Patient doing well today. No abdominal pain. No rectal bleeding or melena. Hemoglobin is stable at 11.2. Objective - Vital Signs Vital signs: Vital Signs Temp 98.4 F 09/16/22 07:30 Pulse 79 09/16/22 07:30 Resp 16 09/16/22 07:30 BP 142/87 09/16/22 07:30 Pulse Ox 98 09/16/22 07:30 FiO2 100 09/12/22 16:00 Intake & Output 09/15/22 09/16/22 09/16/22 18:59 06:59 18:59 Output Total 0 1959 Balance -2299 -1959 Output: Urine 0 1959 - Exam Abdomen: Soft, nontender, nondistended - Labs CBC & Chem 7: 09/16/22 06:27 09/16/22 06:27 Labs: Abnormal Lab Results - Last 24 Hours (Table) 09/15/22 09/15/22 09/15/22 Range/Units 10:53 16:06 20:35 RBC 3.58 L (4.30-5.90) m/uL Hgb 11.2 L (13.0-17.5) gm/dL Hct 31.5 L (39.0-53.0) % Sodium (137-145) mmol/L Glucose (74-99) mg/dL POC Glucose (mg/dL) 212 H 185 H (70-110) mg/dL Total Protein (6.3-8.2) g/dL Albumin (3.5-5.0) g/dL 09/16/22 09/16/22 09/16/22 Range/Units 01:54 06:09 06:27 RBC 3.63 L (4.30-5.90) m/uL Hgb 11.2 L (13.0-17.5) gm/dL Hct 33.3 L (39.0-53.0) % Sodium (137-145) mmol/L Glucose (74-99) mg/dL POC Glucose (mg/dL) 332 H 310 H (70-110) mg/dL Total Protein (6.3-8.2) g/dL Albumin (3.5-5.0) g/dL 09/16/22 Range/Units 06:27 RBC (4.30-5.90) m/uL Hgb (13.0-17.5) gm/dL Hct (39.0-53.0) % Sodium 133 L (137-145) mmol/L Glucose 334 H (74-99) mg/dL POC Glucose (mg/dL) (70-110) mg/dL Total Protein 5.3 L (6.3-8.2) g/dL Albumin 3.0 L (3.5-5.0) g/dL Assessment and Plan (1) H/O diabetic gastroparesis Narrative/Plan: Patient doing well. Continue regular diet. Monitor hemoglobin. Discharge per primary service. Current Visit: No Status: Chronic Code(s): Z86.39 - PERSONAL HISTORY OF ENDO, NUTRITIONAL AND METABOLIC DISEASE SNOMED Code(s): 537504871
[2022-09-16] MEDS: prednisoLONE ACETATE 1% OPHTH DROPS 5 ML BTL RIGHT EYE SCH ×2 (09:50→21:32)
[2022-09-16 11:02] LABS: Glucose,Whole Blood 263 mg/dL (70-110)
[2022-09-16] MEDS: BUDESONIDE 0.5 MG/2 ML NEBU INHALATION SCH ×2 (11:53→20:26)
[2022-09-16 16:30] LABS: Glucose,Whole Blood 102 mg/dL (70-110)
[2022-09-16] MEDS: ANIDULAFUNGIN 100 MG in SODIUM CHLORIDE 0.9% 100 ML IVPB SCH (16:52)
[2022-09-16] MEDS: LURASIDONE 60 MG TAB PO SCH (16:52)
--- NOTE | 2022-09-16 16:58 | P.PN ---
Progress Note - Text Progress Note Date: 09/16/22 Presenting complaint: Tired 09/15/2022: I'm rounding for Dr. Wisam Vickers. Patient is laying in bed. Eating at least about 50%. Once the patient to sit up in a chair. 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 Patient's EGD revealed gastritis and esophagitis. 09/16/2022: Comfortable. Tolerating diet. Discussed with ID Dr. Baptiste. Patient to continue with antifungals until biopsy results are back. Patient been up to the bathroom. Otherwise comfortable. On examination: VITAL SIGNS: 97.6, 80, 18, 150/95, 99% room air GENERAL APPEARANCE: Negative bed, comfortable HEENT: Normal external appearance of nose and ear. Oral cavity normal EYES: Poor vision. Limited to hand movements NECK: JVD not raised. Mass not palpable. RESPIRATORY: Respiratory effort normal. Lungs clear to auscultation. CARDIOVASCULAR: First and second sounds normal. No edema. ABDOMEN: Soft. Liver and spleen not palpable. No tenderness. No mass palpable. PSYCHIATRY: Alert and oriented x3. Mood and affect. Anxious INVESTIGATIONS, reviewed in the clinical context: September 16: White count 7.7 hemoglobin 11.2 platelets 304 potassium 4.3 creatinine 0.77 White count 6 hemoglobin 11.2 platelets 300 Assessment and plan: -Leukocytosis is likely secondary to DKA. Being followed by ID. Currently no obvious source of infection -IV Eraxcis, aspirin ID.. Awaiting finalization of PAS stain for fungal organism. -DKA, resolved -Erosive gastritis as per EGD. PPI -Upper GI bleed with coffee-ground emesis secondary to gastritis. Status post EGD. -Probable gastroparesis secondary to diabetes -Diabetes mellitus type 1 On Levemir. Follow Accu-Cheks -Diabetic neuropathy -Acute kidney injury, Resolved -Bipolar. Seroquel. Latuda -Essential hypertension Amlodipine 5 mg twice a day. Zestril. Antifungal to continue for ID. Otherwise patient is doing well. Continue current treatment plan.
[2022-09-16] MEDS: LORazepam 0.5 MG TAB PO PRN (18:37)
[2022-09-16 20:13] LABS: Glucose,Whole Blood 283 mg/dL (70-110)
[2022-09-16] MEDS: QUEtiapine 25 MG TAB PO SCH (21:09)
[2022-09-16] MEDS: ATORVASTATIN 20 MG TAB PO SCH (21:09)
[2022-09-16] MEDS: MONTELUKAST 10 MG TAB PO SCH (21:09)
[2022-09-16] MEDS: ONDANSETRON 4 MG/2 ML VIAL IVP PRN (21:13)
[2022-09-17 02:03] LABS: Glucose,Whole Blood 248 mg/dL (70-110)
[2022-09-17] MEDS: INSULIN ASPART (NovoLOG) 100 UNIT/ML VIAL SQ SCH ×8 (02:09→20:33)
[2022-09-17] MEDS: HYDROmorphone 0.5 MG/0.5 ML SYRINGE IVP PRN ×5 (02:16→22:10)
[2022-09-17] MEDS: SODIUM CHLORIDE 0.9% 1,000 ML IV SCH ×3 (04:21→17:06)
[2022-09-17 06:06] LABS: Glucose,Whole Blood 300 mg/dL (70-110)
[2022-09-17] MEDS: INSULIN DETEMIR (LEVEMIR) 100 UNIT/ML SYR SQ SCH (06:22)
[2022-09-17] MEDS: METOCLOPRAMIDE 5 MG TAB PO SCH ×3 (06:23→18:09)
[2022-09-17] MEDS: amLODIPine 5 MG TAB PO SCH ×2 (07:35→20:32)
[2022-09-17] MEDS: lisinopriL 10 MG TAB PO SCH (07:35)
[2022-09-17] MEDS: LURASIDONE 40 MG TAB PO SCH (07:35)
[2022-09-17] MEDS: METOPROLOL TARTRATE 50 MG TAB PO SCH ×2 (07:35→20:32)
[2022-09-17] MEDS: ATROPINE OPHTH SOLN 1% 5ML BTL LEFT EYE SCH ×2 (07:36→20:40)
[2022-09-17] MEDS: TRIHEXYPHENIDYL 2 MG TAB PO SCH ×2 (07:36→20:49)
[2022-09-17] MEDS: QUEtiapine 50 MG TAB PO SCH ×2 (07:36→22:06)
[2022-09-17] MEDS: prednisoLONE ACETATE 1% OPHTH DROPS 5 ML BTL RIGHT EYE SCH ×2 (07:36→20:41)
[2022-09-17] MEDS: PANTOPRAZOLE 40 MG/10 ML VIAL IVP SCH ×2 (08:15→20:31)
[2022-09-17] MEDS: BUDESONIDE 0.5 MG/2 ML NEBU INHALATION SCH ×2 (08:32→20:09)
--- NOTE | 2022-09-17 10:03 | P.PN ---
Subjective Progress Note Date: 09/16/22 Principal diagnosis: Leukocytosis Patient is a 36-year-old male with a past medical history significant for insulin-dependent diabetes mellitus and diabetic gastroparesis and diabetic neuropathy did have a history of diabetic foot infection in addition to anxiety bipolar depression patient was brought into the hospital as the patient was noticed to have elevated blood sugar patient has been feeling nauseated and vomiting and complaining of generalized body aches patient has been diagnosed with DKA and is being treated appropriately patient did have a CT of the chest abdominal pelvis with no acute finding except thickened esophagus and the patient was noticed to have elevated white count probably this infectious disease consultation. Patient is status post EGD completed on 09/14/2022 with evidence of esophagitis biopsy has been obtained On today's evaluation that is 09/16/2022 the patient remains to be afebrile, the patient is breathing comfortably on room air no chest pain shortness of breath or cough no nausea vomiting and no diarrhea has been reported. Patient did have a hemoglobin of 11 point white count 7.7 creatinine 0.77 Objective - Vital Signs Vital signs: Vital Signs Temp 97.6 F 09/16/22 14:00 Pulse 107 H 09/16/22 14:00 Resp 18 09/16/22 14:00 BP 150/95 09/16/22 14:00 Pulse Ox 99 09/16/22 14:00 FiO2 100 09/12/22 16:00 Intake & Output 09/15/22 09/16/22 09/16/22 18:59 06:59 18:59 Output Total 2300 1960 Balance -2299 Output: Urine 2300 1960 - Exam GENERAL DESCRIPTION: Middle-aged male lying in bed in no distress RESPIRATORY SYSTEM: Unlabored breathing , decreased breath sounds at bases HEART: S1 S2 regular rate and rhythm , ABDOMEN: Soft , no tenderness EXTREMITIES: No edema feet - Labs CBC & Chem 7: 09/16/22 06:27 09/16/22 06:27 Labs: Abnormal Lab Results - Last 24 Hours (Table) 09/15/22 09/15/22 09/16/22 Range/Units 16:06 20:35 01:54 RBC (4.30-5.90) m/uL Hgb (13.0-17.5) gm/dL Hct (39.0-53.0) % Sodium (137-145) mmol/L Glucose (74-99) mg/dL POC Glucose (mg/dL) 212 H 185 H 332 H (70-110) mg/dL Total Protein (6.3-8.2) g/dL Albumin (3.5-5.0) g/dL 09/16/22 09/16/22 09/16/22 Range/Units 06:09 06:27 06:27 RBC 3.63 L (4.30-5.90) m/uL Hgb 11.2 L (13.0-17.5) gm/dL Hct 33.3 L (39.0-53.0) % Sodium 133 L (137-145) mmol/L Glucose 334 H (74-99) mg/dL POC Glucose (mg/dL) 310 H (70-110) mg/dL Total Protein 5.3 L (6.3-8.2) g/dL Albumin 3.0 L (3.5-5.0) g/dL 09/16/22 Range/Units 11:01 RBC (4.30-5.90) m/uL Hgb (13.0-17.5) gm/dL Hct (39.0-53.0) % Sodium (137-145) mmol/L Glucose (74-99) mg/dL POC Glucose (mg/dL) 263 H (70-110) mg/dL Total Protein (6.3-8.2) g/dL Albumin (3.5-5.0) g/dL Microbiology - Last 24 Hours (Table) 09/11/22 03:52 Blood Culture - Final Blood Assessment and Plan (1) Esophagitis Current Visit: No Status: Acute Code(s): K20.90 - ESOPHAGITIS, UNSPECIFIED WITHOUT BLEEDING SNOMED Code(s): 81117720 (2) Leukocytosis Current Visit: No Status: Acute Code(s): D72.829 - ELEVATED WHITE BLOOD CELL COUNT, UNSPECIFIED SNOMED Code(s): 011639631 Plan: 1patient did have elevated pro-calcitonin however no significant cough or sputum production breathing comfortably on room a chest x-ray was negative clinically doubt pneumonia, there is no need for antibiotic therapy 2-patient with leukocytosis possibly related to DKA and the patient not running any fever and white count normalized quickly the patient did have evidence of esophagitis and the patient is status post EGD and biopsy reports did shows erosive gastritis H. pylori was negative, fungal stains are currently pending, patient to continue with Eraxis while waiting for the final report on the Esophageal biopsy regarding fungal stain if negative will recommend discontinuation of Eraxis if positive will need outpatient IV antifungal arrangement as we cannot use oral Diflucan because of drug interaction this has been explained in detail to the admitting team Dictation was produced using [employer] dictation software. please excuse any grammatical, word or spelling errors. Time with Patient: Less than 30
[2022-09-17 11:30] LABS: Glucose,Whole Blood 180 mg/dL (70-110)
--- NOTE | 2022-09-17 11:30 | P.PN ---
Subjective Progress Note Date: 09/17/22 Principal diagnosis: Gastroparesis Patient resting comfortably. Denies pain. No nausea or vomiting. No rectal bleeding. Objective - Vital Signs Vital signs: Vital Signs Temp 97.8 F 09/17/22 07:27 Pulse 76 09/17/22 07:27 Resp 16 09/17/22 07:27 BP 148/70 09/17/22 07:27 Pulse Ox 95 09/17/22 07:27 FiO2 100 09/12/22 16:00 Intake & Output 09/16/22 09/17/22 09/17/22 18:59 06:59 18:59 Output Total 1700 Balance -1700 Output: Urine 1700 Other: # Voids 6 # Bowel Movements 1 - Exam Abdomen: Soft, nontender, nondistended - Labs CBC & Chem 7: 09/16/22 06:27 09/16/22 06:27 Labs: Abnormal Lab Results - Last 24 Hours (Table) 09/16/22 09/17/22 09/17/22 Range/Units 20:11 01:47 06:04 POC Glucose (mg/dL) 283 H 248 H 300 H (70-110) mg/dL Microbiology - Last 24 Hours (Table) 09/11/22 03:52 Blood Culture - Final Blood Assessment and Plan (1) H/O diabetic gastroparesis Narrative/Plan: Patient doing well. Continue regular diet. Monitor hemoglobin. Discharge per primary service. Current Visit: No Status: Chronic Code(s): Z86.39 - PERSONAL HISTORY OF END O, NUTRITIONAL AND METABOLIC DISEASE SNOMED Code(s): 367287894
[2022-09-17 13:31] LABS: Glucose,Whole Blood 64 mg/dL (70-110)
--- NOTE | 2022-09-17 14:18 | P.PN ---
Progress Note - Text Progress Note Date: 09/17/22 Presenting complaint: Tired 09/15/2022: I'm rounding for Dr. Wisam Vickers. Patient is laying in bed. Eating at least about 50%. Once the patient to sit up in a chair. 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 Patient's EGD revealed gastritis and esophagitis. 09/16/2022: Comfortable. Tolerating diet. Discussed with ID Dr. Baptiste. Patient to continue with antifungals until biopsy results are back. Patient been up to the bathroom. Otherwise comfortable. 09/17/2022: Laying in bed. Tolerating diet. On IV antifungals per ID. Does complain of some pain in lower extremity. Told to be out of bed and increase activity. We'll order JEREMY stockings. Active Medications Albuterol/Ipratropium (Ipratropium-Albuterol 3 Ml Neb) 3 ml INHALATION RT-QID PRN PRN Reason: Shortness Of Breath Or Wheezing Amlodipine Besylate (Amlodipine 5 Mg Tab) 5 mg PO BID [facility] Last Admin: 09/17/22 07:35 Dose: 5 mg Atorvastatin Calcium (Atorvastatin 20 Mg Tab) 20 mg PO HS [facility] Last Admin: 09/16/22 21:09 Dose: 20 mg Atropine Sulfate (Atropine Ophth Soln 1% 5ml Btl) 1 drops LEFT EYE BID [facility] Last Admin: 09/17/22 07:36 Dose: Not Given Budesonide (Budesonide 0.5 Mg/2 Ml Nebu) 0.5 mg INHALATION RT-BID [facility] Last Admin: 09/17/22 08:32 Dose: Not Given Carbamazepine (Carbamazepine Chew 100 Mg Chew) 100 mg PO BID [facility] Last Admin: 09/17/22 07:36 Dose: 100 mg Clonidine HCl (Clonidine 0.2 Mg/24hr Patch) 1 patch TRANSDERM Q7D [facility] Last Admin: 09/12/22 00:18 Dose: 1 patch Dextrose/Water (Dextrose 50% Syringe 50 Ml) 25 ml IVP PER PROTOCOL PRN; Protocol PRN Reason: Hypoglycemia Dextrose/Water (Dextrose 50% Syringe 50 Ml) 50 ml IVP PER PROTOCOL PRN; Pr otocol PRN Reason: Hypoglycemia Glucagon (Glucagon 1 Mg/Ml Vial) 1 mg IM ONCE PRN PRN Reason: Hypoglycemia Hydromorphone HCl (Hydromorphone 0.5 Mg/0.5 Ml Syringe) 0.5 mg IVP Q4HR PRN PRN Reason: Pain Last Admin: 09/17/22 11:24 Dose: 0.5 mg Sodium Chloride (Saline 0.9%) 1,000 mls @ 125 mls/hr IV .Q8H [facility] Last Admin: 09/17/22 08:15 Dose: 125 mls/hr Anidulafungin 100 mg/ Sodium (Chloride) 100 mls @ 84 mls/hr IVPB DAILY@1600 [facility]; Protocol Last Admin: 09/16/22 16:52 Dose: 84 mls/hr Insulin Aspart (Insulin Aspart (Novolog) 100 Unit/Ml Vial) 7 unit 0.1 unit/kg (7 unit) SQ AC-TID [facility] Last Admin: 09/17/22 12:13 Dose: 7 unit Insulin Aspart (Insulin Aspart (Novolog) 100 Unit/Ml Vial) 0 unit SQ [id number] [facility]; Protocol Last Admin: 09/17/22 12:14 Dose: 1 unit Insulin Detemir (Insulin Detemir (Levemir) 100 Unit/Ml Syr) 20 unit 0.3 unit/kg (20 unit) SQ DAILY@0700 [facility] Last Admin: 09/17/22 06:22 Dose: 20 unit Lisinopril (Lisinopril 10 Mg Tab) 30 mg PO DAILY [facility] Last Admin: 09/17/22 07:35 Dose: 30 mg Lorazepam (Lorazepam 2 Mg/Ml Inj) 0.5 mg IV Q6HR PRN PRN Reason: Anxiety Last Admin: 09/16/22 09:40 Dose: 0.5 mg Lorazepam (Lorazepam 0.5 Mg Tab) 0.5 mg PO Q6H PRN PRN Reason: Anxiety Last Admin: 09/16/22 18:37 Dose: 0.5 mg Lurasidone HCl (Lurasidone 40 Mg Tab) 40 mg PO W/BRKFST [facility] Last Admin: 09/17/22 07:35 Dose: 40 mg Lurasidone HCl (Lurasidone 60 Mg Tab) 120 mg PO W/SUPPER [facility] Last Admin: 09/16/22 16:52 Dose: 120 mg Methocarbamol (Methocarbamol 750 Mg Tab) 750 mg PO BID PRN PRN Reason: Muscle Spasm Last Admin: 09/09/22 16:50 Dose: 750 mg Metoclopramide HCl (Metoclopramide 5 Mg Tab) 5 mg PO AC-TID [facility] Last Admin: 09/17/22 11:24 Dose: 5 mg Metoprolol Tartrate (Metoprolol Tartrate 50 Mg Tab) 50 mg PO BID [facility] Last Admin: 09/17/22 07:35 Dose: 50 mg Miscellaneous Information (Magnesium Replacement Protocol 1 Each Misc) 1 each MISCELLANE DAILY PRN; Protocol PRN Reason: Per Protocol Miscellaneous Information (Potassium Replacement Protocol 1 Each Misc) 1 each MISCELLANE DAILY PRN PRN Reason: Per Protocol Montelukast Sodium (Montelukast 10 Mg Tab) 10 mg PO HS [facility] Last Admin: 09/16/22 21:09 Dose: 10 mg Naloxone HCl (Naloxone 0.4 Mg/Ml 1 Ml Vial) 0.2 mg IV Q2M PRN PRN Reason: Opioid Reversal Ondansetron HCl (Ondansetron 4 Mg/2 Ml Vial) 4 mg IVP Q6HR PRN PRN Reason: Nausea And Vomiting Last Admin: 09/16/22 21:13 Dose: 4 mg Pantoprazole Sodium (Pantoprazole 40 Mg/10 Ml Vial) 40 mg IVP BID [facility] Last Admin: 09/17/22 08:15 Dose: 40 mg Prednisolone Acetate (Prednisolone Acetate 1% Ophth Drops 5 Ml Btl) 1 drops RIGHT EYE BID [facility] Last Admin: 09/17/22 07:36 Dose: Not Given Quetiapine Fumarate (Quetiapine 25 Mg Tab) 25 mg PO HS [facility] Last Admin: 09/16/22 21:09 Dose: 25 mg Quetiapine Fumarate (Quetiapine 50 Mg Tab) 50 mg PO BID [facility] Last Admin: 09/17/22 07:36 Dose: 50 mg Sumatriptan Succinate (Sumatriptan Succinate 50 Mg Tab) 100 mg PO DAILY PRN PRN Reason: Migraine Headache Trihexyphenidyl HCl (Trihexyphenidyl 2 Mg Tab) 2 mg PO DAILY [facility] Last Admin: 09/17/22 07:36 Dose: 2 mg Trihexyphenidyl HCl (Trihexyphenidyl 2 Mg Tab) 4 mg PO HS [facility] Last Admin: 09/16/22 21:09 Dose: 4 mg Zolpidem Tartrate (Zolpidem 5 Mg Tab) 5 mg PO HS PRN PRN Reason: Insomnia Last Admin: 09/08/22 00:11 Dose: 5 mg On examination: VITAL SIGNS: 96.8, 90, 17, 1 3589, 99% room air GENERAL APPEARANCE: Laying in bed, comfortable HEENT: Normal external appearance of nose and ear. Oral cavity normal EYES: Poor vision. Limited to hand movements NECK: JVD not raised. Mass not palpable. RESPIRATORY: Respiratory effort normal. Lungs clear to auscultation. CARDIOVASCULAR: First and second sounds normal. No edema. ABDOMEN: Soft. Liver and spleen not palpable. No tenderness. No mass palpable. PSYCHIATRY: Alert and oriented x3. Mood and affect. Anxious INVESTIGATIONS, reviewed in the clinical context: September 16: White count 7.7 hemoglobin 11.2 platelets 304 potassium 4.3 creati nine 0.77 White count 6 hemoglobin 11.2 platelets 300 Assessment and plan: -Leukocytosis is likely secondary to DKA. Being followed by ID. Currently no obvious source of infection -IV Eraxcis,.. Awaiting finalization of PAS stain for fungal organism. -DKA, resolved -Erosive gastritis as per EGD. PPI -Upper GI bleed with coffee-ground emesis secondary to gastritis. Status post EGD. -Probable gastroparesis secondary to diabetes -Diabetes mellitus type 1 On Levemir. Follow Accu-Cheks -Diabetic neuropathy -Acute kidney injury, Resolved -Bipolar. Seroquel. Latuda -Essential hypertension Amlodipine 5 mg twice a day. Zestril. Antifungal to continue pending results from biopsy. Awaiting negative fungal stain. I asked patient to increase activity. JEREMY mg
[2022-09-17] MEDS: ANIDULAFUNGIN 100 MG in SODIUM CHLORIDE 0.9% 100 ML IVPB SCH (16:08)
--- NOTE | 2022-09-17 16:29 | P.PN ---
Subjective Progress Note Date: 09/17/22 Principal diagnosis: Leukocytosis Patient is a 36-year-old male with a past medical history significant for insulin-dependent diabetes mellitus and diabetic gastroparesis and diabetic neuropathy did have a history of diabetic foot infection in addition to anxiety bipolar depression patient was brought into the hospital as the patient was noticed to have elevated blood sugar patient has been feeling nauseated and vomiting and complaining of generalized body aches patient has been diagnosed with DKA and is being treated appropriately patient did have a CT of the chest abdominal pelvis with no acute finding except thickened esophagus and the patient was noticed to have elevated white count probably this infectious disease consultation. Patient is status post EGD completed on 09/14/2022 with evidence of esophagitis biopsy has been obtained On today's evaluation that is 09/17/2022 the patient continues to be afebrile, the patient is breathing comfortably on room air, the patient denies having any chest pain shortness of breath or cough no nausea vomiting and no diarrhea has been reported. Patient did have a hemoglobin of 11.2t white count 7.7 creatinine 0.77 as of yesterday no blood work today Objective - Vital Signs Vital signs: Vital Signs Temp 97.8 F 09/17/22 07:27 Pulse 76 09/17/22 07:27 Resp 16 09/17/22 07:27 BP 148/70 09/17/22 07:27 Pulse Ox 95 09/17/22 07:27 FiO2 100 09/12/22 16:00 Intake & Output 09/16/22 09/17/22 09/17/22 18:59 06:59 18:59 Output Total 1700 Balance -1700 Output: Urine 1700 Other: # Voids 6 # Bowel Movements 1 - Exam GENERAL DESCRIPTION: Middle-aged male lying in bed in no distress RESPIRATORY SYSTEM: Unlabored breathing , decreased breath sounds at bases HEART: S1 S2 regular rate and rhythm , ABDOMEN: Soft , no tenderness EXTREMITIES: No edema feet - Labs CBC & Chem 7: 09/16/22 06:27 09/16/22 06:27 Labs: Abnormal Lab Results - Last 24 Hours (Table) 09/16/22 09/17/22 09/17/22 Range/Units 20:11 01:47 06:04 POC Glucose (mg/dL) 283 H 248 H 300 H (70-110) mg/dL 09/17/22 09/17/22 Range/Units 11:29 13:30 POC Glucose (mg/dL) 180 H 64 L (70-110) mg/dL Microbiology - Last 24 Hours (Table) 09/11/22 03:52 Blood Culture - Final Blood Assessment and Plan (1) Esophagitis Current Visit: No Status: Acute Code(s): K20.90 - ESOPHAGITIS, UNSPECIFIED WITHOUT BLEEDING SNOMED Code(s): 21833894 (2) Leukocytosis Current Visit: No Status: Acute Code(s): D72.829 - ELEVATED WHITE BLOOD CELL COUNT, UNSPECIFIED SNOMED Code(s): 900934612 Plan: 1patient did have elevated pro-calcitonin however no significant cough or sputum production breathing comfortably on room a chest x-ray was negative clinically doubt pneumonia, there is no need for antibiotic therapy 2-patient with leukocytosis possibly related to DKA and the patient not running any fever and white count normalized quickly the patient did have evidence of esophagitis and the patient is status post EGD and biopsy reports did shows erosive gastritis H. pylori was negative, fungal stains are currently pending, patient to continue with Eraxis while waiting for the final report on the Esophageal biopsy regarding fungal stain if negative will recommend discontinuat ion of Eraxis if positive will need outpatient IV antifungal arrangement as we cannot use oral Diflucan because of drug interaction , this was explained to the father at the bedside his questions and concerns were answered and monitor clinical course closely Dictation was produced using [employer] dictation software. please excuse any grammatical, word or spelling errors. Time with Patient: Less than 30
[2022-09-17 16:34] LABS: Glucose,Whole Blood 98 mg/dL (70-110)
[2022-09-17] MEDS: LORazepam 0.5 MG TAB PO PRN (18:09)
[2022-09-17] MEDS: LURASIDONE 60 MG TAB PO SCH (18:10)
[2022-09-17 20:12] LABS: Glucose,Whole Blood 307 mg/dL (70-110)
[2022-09-17] MEDS: QUEtiapine 25 MG TAB PO SCH (20:32)
[2022-09-17] MEDS: ATORVASTATIN 20 MG TAB PO SCH (20:32)
[2022-09-17] MEDS: MONTELUKAST 10 MG TAB PO SCH (20:32)
[2022-09-18 01:58] LABS: Glucose,Whole Blood 293 mg/dL (70-110)
[2022-09-18] MEDS: INSULIN ASPART (NovoLOG) 100 UNIT/ML VIAL SQ SCH ×8 (02:16→20:54)
[2022-09-18] MEDS: HYDROmorphone 0.5 MG/0.5 ML SYRINGE IVP PRN ×5 (02:16→22:13)
[2022-09-18 05:16] LABS: Basophils % (A) 0 %; Eosinophils # (A) 0.1 k/uL (0-0.7); Eosinophils % (A) 1 %; HCT 31.6 % (39.0-53.0); HGB 10.7 gm/dL (13.0-17.5); Lymphocytes # (A) 1.8 k/uL (1.0-4.8); Lymphocytes % (A) 25 %; MCH 30.8 pg (25.0-35.0); MCHC 33.8 g/dL (31.0-37.0); MCV 91.1 fL (80.0-100.0); Mean Platelet Volume 7.5; Monocytes # (A) 0.5 k/uL (0-1.0); Monocytes % (A) 7 %; Neutrophils # (A) 4.5 k/uL (1.3-7.7); Neutrophils % (A) 63 %; Platelet Count 372 k/uL (150-450); RBC 3.47 m/uL (4.30-5.90); WBC 7.1 k/uL (3.8-10.6)
[2022-09-18 05:34] LABS: Glucose,Whole Blood 356 mg/dL (70-110)
[2022-09-18 05:43] LABS: ALT 22 U/L (4-49); AST 38 U/L (17-59); African American GFR (CKD) >90 (>60 ml/min/1.73 sqM); Albumin 2.9 g/dL (3.5-5.0); Albumin/Globulin Ratio 1.2; Alkaline Phosphatase 118 U/L (38-126); Anion Gap 9 mmol/L; Blood Urea Nitrogen 8 mg/dL (9-20); Calcium 8.5 mg/dL (8.4-10.2); Carbon Dioxide 23 mmol/L (22-30); Chloride 102 mmol/L (98-107); Globulin 2.4 g/dL; Glucose 270 mg/dL (74-99); Non-African American GFR(CKD) >90 (>60 ml/min/1.73 sqM); Potassium 4.2 mmol/L (3.5-5.1); Sodium 134 mmol/L (137-145); Total Bilirubin 0.2 mg/dL (0.2-1.3); Total Protein 5.3 g/dL (6.3-8.2)
[2022-09-18] MEDS: LORazepam 0.5 MG TAB PO PRN ×2 (05:50→20:54)
[2022-09-18] MEDS: INSULIN DETEMIR (LEVEMIR) 100 UNIT/ML SYR SQ SCH (05:50)
[2022-09-18] MEDS: lisinopriL 10 MG TAB PO SCH (07:28)
[2022-09-18] MEDS: METOCLOPRAMIDE 5 MG TAB PO SCH ×2 (07:29→12:18)
[2022-09-18] MEDS: amLODIPine 5 MG TAB PO SCH ×2 (07:29→20:55)
[2022-09-18] MEDS: METOPROLOL TARTRATE 50 MG TAB PO SCH ×2 (07:29→20:55)
[2022-09-18] MEDS: LURASIDONE 40 MG TAB PO SCH (07:29)
[2022-09-18] MEDS: QUEtiapine 50 MG TAB PO SCH ×2 (07:29→20:55)
[2022-09-18] MEDS: TRIHEXYPHENIDYL 2 MG TAB PO SCH ×2 (07:30→20:56)
[2022-09-18] MEDS: prednisoLONE ACETATE 1% OPHTH DROPS 5 ML BTL RIGHT EYE SCH ×2 (07:30→20:56)
[2022-09-18] MEDS: ATROPINE OPHTH SOLN 1% 5ML BTL LEFT EYE SCH ×2 (07:33→21:12)
[2022-09-18] MEDS: PANTOPRAZOLE 40 MG/10 ML VIAL IVP SCH ×2 (08:06→20:54)
[2022-09-18] MEDS: SODIUM CHLORIDE 0.9% 1,000 ML IV SCH ×3 (08:11→16:09)
[2022-09-18] MEDS: BUDESONIDE 0.5 MG/2 ML NEBU INHALATION SCH ×2 (08:46→22:01)
[2022-09-18 10:04] LABS: Glucose,Whole Blood 337 mg/dL (70-110)
[2022-09-18 11:21] LABS: Glucose,Whole Blood 283 mg/dL (70-110)
[2022-09-18] MEDS ORDERED: METOCLOPRAMIDE 5 MG TAB PO PRN (12:36)
--- NOTE | 2022-09-18 13:05 | P.CONS ---
History of Present Illness - Reason for Consult Consult date: 09/18/22 Emesis, EGD Requesting physician: Wisam Vickers - Chief Complaint Hyperglycemia - History of Present Illness This is a 37-year-old type 1 insulin-dependent diabetic who presented to the emergency department on 09/03/2022 with complaints of hyperglycemia, he was admitted for diabetic ketoacidosis. He came in and had intractable nausea and vomiting secondary to DKA. He has a history of bilateral glaucoma, diabetic gastroparesis, diabetic neuropathy, peptic ulcer disease, migraine and has permanent pacemaker. During his admission gastroenterology was consulted how er there was no gastroenterology present in the hospital last week up until today. Gastroenterology consulted for emesis. Patient sugars have been control and manage. He has no further nausea and vomiting at this time. He was seen by general surgery who performed EGD on 09/14/2022 with findings of gastritis and esophagitis. He had been on Reglan 3 times a day scheduled, patient states he does not want to take any further only as needed. He denies any abdominal pain, nausea or vomiting at this time. Just reports pain in his right lower extremity. Review of Systems REVIEW OF SYSTEMS: CARDIOPULMONARY: No chest pain or shortness of breath. Gastrointestinal: No abdominal pain or epigastric pain. No nausea or vomiting. No hematemesis, coffee-ground emesis. No rectal bleeding, or melena. GENITOURINARY: No dysuria or hematuria. MUSCULOSKELETAL: Reports normal range of motion. SKIN: No rashes. No jaundice. ENDOCRINE: No chills, fevers. No excessive weight gain or loss. No polydipsia or polyuria. PSYCHIATRIC: Unremarkable. NEUROLOGY: No change in mental status. Denies dizziness, headache. ENT: Vision unremarkable. CONSTITUTIONAL: No recent weight loss. No fever, chills, night sweats. Past Medical History Past Medical History: Diabetes Mellitus Additional Past Medical History / Comment(s): bilateral glaucoma, Tachycardia, diabetic gastropariesis, diabetic neuropathy, migraine headaches, peptic ulcer disease, retinal detachment status post multiple surgeries History of Any Multi-Drug Resistant Organisms: None Reported Past Surgical History: Pacemaker Additional Past Surgical History / Comment(s): eye surgery, EGDs Past Anesthesia/Blood Transfusion Reactions: No Reported Reaction Past Psychological History: Anxiety, Bipolar, Depression Smoking Status: Current every day smoker Past Alcohol Use History: None Reported Past Drug Use History: None Reported - Past Family History Father Additional Family Medical History / Comment(s): Patient does not know his father's age nor his health problems. Mother Additional Family Medical History / Comment(s): Patient does not know his cecilioe r's age but states she has fibromyalgia. Sister(s) Additional Family Medical History / Comment(s): Patient has 1 sister with no major medical problems. Medications and Allergies Home Medications Medication Instructions Recorded Confirmed Type Metoprolol Tartrate [Lopressor] 150 mg PO BID 06/04/16 09/03/22 History Atorvastatin [Lipitor] 10 mg PO DAILY 01/08/22 09/03/22 History Atropine Sulfate [Atropine Sulfate 1 drop LEFT EYE BID 01/08/22 09/05/22 History 1%] Insulin Aspart (Niacinamide) 0.01 unit SQ-PUMP CONTINUOUS 01/08/22 09/03/22 History [Fiasp 100 Unit/ml Vial] Lurasidone HCl [Latuda] 120 mg PO W/SUPPER 01/08/22 09/03/22 History Lurasidone [Latuda] 40 mg PO W/BRKFST 01/08/22 09/03/22 History Montelukast [Singulair] 10 mg PO HS 01/08/22 09/03/22 History QUEtiapine XR [SEROquel XR] 100 mg PO HS 01/08/22 09/03/22 History prednisoLONE ACETATE 1% OPHTH 1 drop RIGHT EYE BID 01/08/22 09/05/22 History [Pred Forte 1%] Pantoprazole [Protonix] 40 mg PO DAILY 04/08/22 09/03/22 History QUEtiapine FUMARATE [SEROquel] 25 mg PO HS@1900 04/08/22 09/03/22 History Trihexyphenidyl [Artane] 2 mg PO DAILY 04/08/22 09/03/22 History carBAMazepine CHEW [TEGretol Chew] 100 mg PO BID 04/08/22 09/03/22 History amLODIPine [Norvasc] 5 mg PO DAILY 90 Days #90 tab 04/13/22 09/03/22 Rx Albuterol Inhaler [Ventolin Hfa 2 puff INHALATION RT-Q4H PRN 09/03/22 09/03/22 History Inhaler] Glucagon Emergency Kit 1 mg IM ONCE PRN 09/03/22 09/03/22 History Omeprazole [PriLOSEC] 20 mg PO HS 09/03/22 09/03/22 History Rizatriptan Benzoate [Maxalt] 10 mg PO DAILY PRN 09/03/22 09/03/22 History Tiotropium 2.5 Mcg/Puff [Spiriva 2 puff INHALATION RT-DAILY 09/03/22 09/03/22 History Respimat 2.5 Mcg] Trihexyphenidyl [Artane] 4 mg PO HS 09/03/22 09/03/22 History cloNIDine HCL [Catapres] 0.2 mg PO BID 09/03/22 09/03/22 History lisinopriL [Zestril] 20 mg PO DAILY 09/03/22 09/03/22 History methocarbamoL [Robaxin-750] 750 mg PO BID PRN 09/03/22 09/03/22 History Allergies Allergy/AdvReac Type Severity Reaction Status Date / Time adhesive tape Allergy Rash/Hives Verified 09/03/22 21:43 cefazolin Allergy Rash/Hives Verified 09/03/22 21:43 latex Allergy Rash/Hives Verified 09/03/22 21:43 metoclopramide [From Reglan] AdvReac Severe Tardive Verified 09/03/22 21:43 Dyskinesia amoxicillin [From Augmentin] AdvReac Nausea & Verified 09/03/22 21:43 Vomiting & Diarrhea clavulanic acid AdvReac Nausea & Verified 09/03/22 21:43 [From Augmentin] Vomiting & Diarrhea duloxetine [From Cymbalta] AdvReac Hallucinati Verified 09/03/22 21:43 ons pregabalin [From Lyrica] AdvReac Hallucinati Verified 09/03/22 21:43 ons Physical Exam Vitals: Vital Signs Temp Pulse Resp BP Pulse Ox 09/18/22 08:00 97.9 F 76 16 148/94 99 09/18/22 02:00 98.3 F 92 16 116/70 97 09/17/22 19:12 98.3 F 86 16 146/86 100 09/17/22 13:54 96.8 F L 90 17 135/89 99 Intake and Output 09/17/22 09/18/22 09/18/22 22:59 06:59 14:59 Output Total 1300 Balance -1300 Output: Urine 1300 Other: Voiding Method Urinal Urinal # Voids 2 # Bowel Movements 1 General appearance: The patient is alert, oriented, appears in no acute distress. HET: Head is normocephalic and atraumatic. Conjunctiva pink. Sclera anicteric. Right eyelid closed. Neck: Supple without lymphadenopathy. Trachea midline. Heart: S1 S2. Regular rate and rhythm. Lungs: Clear to auscultation. Abdomen: Soft, nontender, nondistended with bowel sounds. No guarding or rigidity. Skin: No rashes. No jaundice. Extremities: Normal skin color and turgor. No pedal edema. Neurological: No focal deficits. Alert and oriented x3. Results CBC & Chem 7: 09/18/22 04:30 09/18/22 04:30 Labs: Abnormal Lab Results - Last 24 Hours (Table) 09/17/22 09/17/22 09/18/22 Range/Units 13:30 20:07 01:43 RBC (4.30-5.90) m/uL Hgb (13.0-17.5) gm/dL Hct (39.0-53.0) % Sodium (137-145) mmol/L BUN (9-20) mg/dL Glucose (74-99) mg/dL POC Glucose (mg/dL) 64 L 307 H 293 H (70-110) mg/dL Total Protein (6.3-8.2) g/dL Albumin (3.5-5.0) g/dL 09/18/22 09/18/22 09/18/22 Range/Units 04:30 04:30 05:31 RBC 3.47 L (4.30-5.90) m/uL Hgb 10.7 L (13.0-17.5) gm/dL Hct 31.6 L (39.0-53.0) % Sodium 134 L (137-145) mmol/L BUN 8 L (9-20) mg/dL Glucose 270 H (74-99) mg/dL POC Glucose (mg/dL) 356 H (70-110) mg/dL Total Protein 5.3 L (6.3-8.2) g/dL Albumin 2.9 L (3.5-5.0) g/dL 09/18/22 09/18/22 Range/Units 10:00 11:10 RBC (4.30-5.90) m/uL Hgb (13.0-17.5) gm/dL Hct (39.0-53.0) % Sodium (137-145) mmol/L BUN (9-20) mg/dL Glucose (74-99) mg/dL POC Glucose (mg/dL) 337 H 283 H (70-110) mg/dL Total Protein (6.3-8.2) g/dL Albumin (3.5-5.0) g/dL Assessment and Plan (1) Nausea & vomiting Narrative/Plan: 37-year-old male with long-standing history of insulin-dependent diabetes with history of diabetic ketoacidosis diabetic gastroparesis who had come in with diabetic ketoacidosis with intractable nausea and vomiting. Nausea and vomiting controlled with sugars were controlled. However he did undergo EGD with Dr. Arreaga on 09/14/2022 with findings of gastritis and esophagitis. Patient cont inues with Reglan, Protonix and Zofran as needed. He denies any further nausea and vomiting at this time. Denies any abdominal pain. Symptoms are likely related to diabetic ketoacidosis and history of diabetic gastroparesis. Continue current regimen however will make Reglan as needed per request his patient. No further and discuss It evaluation plan. Patient is cleared by gastroenterology for discharge Current Visit: No Status: Acute Priority: High Code(s): R11.2 - NAUSEA WITH VOMITING, UNSPECIFIED SNOMED Code(s): 28540648 (2) Diabetic ketoacidosis Current Visit: Yes Status: Acute Code(s): E13.10 - OTH DIABETES MELLITUS WITH KETOACIDOSIS WITHOUT COMA SNOMED Code(s): 840293244 (3) Diabetic gastroparesis associated with type 1 diabetes mellitus Current Visit: No Status: Acute Priority: High Code(s): E10.43 - TYPE 1 DIABETES W DIABETIC AUTONOMIC (POLY)NEUROPATHY; K31.84 - GASTROPARESIS SNOMED Code(s): 154881819 Plan: 1. Continue symptomatic and supportive care 2. Change Reglan to as needed per request of patient 3. Continue Protonix and Zofran 4. No plan for an endoscopic evaluation 5. Continue diet as tolerated 6. Strict glycemic control Thank you for this consultation, the patient is cleared from gastroenterology for discharge. We will sign off at this time. Dr. Rupert Odom I agree with the dictator's note, documented as a scribe by Wendy Mendoza.
[2022-09-18] MEDS: ANIDULAFUNGIN 100 MG in SODIUM CHLORIDE 0.9% 100 ML IVPB SCH (16:07)
[2022-09-18 16:31] LABS: Glucose,Whole Blood 186 mg/dL (70-110)
[2022-09-18] MEDS: LURASIDONE 60 MG TAB PO SCH (17:10)
[2022-09-18 20:03] LABS: Glucose,Whole Blood 223 mg/dL (70-110)
[2022-09-18] MEDS: QUEtiapine 25 MG TAB PO SCH (20:55)
[2022-09-18] MEDS: MONTELUKAST 10 MG TAB PO SCH (20:55)
[2022-09-18] MEDS: ATORVASTATIN 20 MG TAB PO SCH (20:55)
--- NOTE | 2022-09-19 01:11 | PN ---
PROGRESS NOTE SUBJECTIVE: The patient is improving on a daily basis. Abdominal pain and vomiting have stopped. He says he has been on he has been getting every day better and better. Suspect DKA, which triggered by fungal intestinal infection that he has had before with relapse. OBJECTIVE: VITAL SIGNS: He is afebrile. T-max 98.3, pulse rate 70s to 90s. He is breathing normal at 16 to 18, blood pressure is 140s to 160s over 80s to 90s, 97% on room air. CARDIOVASCULAR: S1, S2. LUNGS: Clear. PSYCH: He is giving appropriate answers. NEUROLOGIC: Cranial nerves intact. SKIN: No rashes. LABORATORY DATA: Sugars in 200s to 300s. ASSESSMENT: Insulin-dependent diabetes mellitus, diabetic ketoacidosis, fungal esophagitis, improved with go home. Most likely advance diet as tolerated. PT OT. Continue current treatment. MMODL / IJN: [id number] /
[2022-09-19 01:45] LABS: Glucose,Whole Blood 421 mg/dL (70-110)
[2022-09-19] MEDS: cloNIDine 0.2 MG/24HR PATCH TRANSDERM SCH (02:02)
[2022-09-19] MEDS: INSULIN ASPART (NovoLOG) 100 UNIT/ML VIAL SQ SCH ×8 (02:02→20:57)
[2022-09-19] MEDS: HYDROmorphone 0.5 MG/0.5 ML SYRINGE IVP PRN ×4 (02:09→16:45)
[2022-09-19] MEDS ORDERED: INSULIN ASPART (NovoLOG) 100 UNIT/ML VIAL SQ ONE ×2 (03:19→21:02)
[2022-09-19 05:48] LABS: Glucose,Whole Blood 65 mg/dL (70-110)
[2022-09-19 06:07] LABS: Glucose,Whole Blood 99 mg/dL (70-110)
[2022-09-19] MEDS: INSULIN DETEMIR (LEVEMIR) 100 UNIT/ML SYR SQ SCH (06:21)
[2022-09-19] MEDS: LURASIDONE 40 MG TAB PO SCH (07:03)
[2022-09-19 08:02] LABS: Glucose,Whole Blood 169 mg/dL (70-110)
[2022-09-19] MEDS: lisinopriL 10 MG TAB PO SCH (08:11)
[2022-09-19] MEDS: METOPROLOL TARTRATE 50 MG TAB PO SCH ×2 (08:11→19:57)
[2022-09-19] MEDS: amLODIPine 5 MG TAB PO SCH ×2 (08:11→19:58)
[2022-09-19] MEDS: PANTOPRAZOLE 40 MG/10 ML VIAL IVP SCH ×2 (08:12→20:58)
[2022-09-19] MEDS: ATROPINE OPHTH SOLN 1% 5ML BTL LEFT EYE SCH ×2 (08:12→20:58)
[2022-09-19] MEDS: prednisoLONE ACETATE 1% OPHTH DROPS 5 ML BTL RIGHT EYE SCH ×2 (08:13→20:58)
[2022-09-19] MEDS: TRIHEXYPHENIDYL 2 MG TAB PO SCH ×2 (08:13→19:58)
[2022-09-19] MEDS: QUEtiapine 50 MG TAB PO SCH ×2 (08:14→19:58)
[2022-09-19] MEDS: LORazepam 0.5 MG TAB PO PRN ×2 (08:21→19:57)
[2022-09-19] MEDS: BUDESONIDE 0.5 MG/2 ML NEBU INHALATION SCH ×2 (11:17→20:11)
[2022-09-19 11:57] LABS: Glucose,Whole Blood 62 mg/dL (70-110)
[2022-09-19 12:12] LABS: Glucose,Whole Blood 66 mg/dL (70-110)
[2022-09-19 12:30] LABS: Glucose,Whole Blood 78 mg/dL (70-110)
--- NOTE | 2022-09-19 13:35 | P.PN ---
Subjective Progress Note Date: 09/19/22 Principal diagnosis: Chronic persistent mild asthma, continue bronchodilator along with inhaled corticosteroids Sleep disorder breathing and sleep apnea patient recommended to bring CPAP machine from home and start using it Uncontrolled diabetes and hyperglycemia, continue short and long-acting insulin Nausea vomiting advanced gastroparesis, continue prokinetic agent and entire reflex measures general surgery has been following 09/19/2022, patient out of ICU after DKA, back on short and long-acting insulin also antihypertensive agent high intensity statins. Patient remains on bronchodilators as needed, along with hypertensive agents and high density statins, patient remains afebrile on room air saturation is mid 90s, at room air 09/08/2022, patient seen eval examined the rounds of medications reviewed shortness of breath overall stable has been on bronchodilators by nebulization as well as inhaled corticosteroids respiratory status continued to improved however is still have intermittent issues with nausea and vomiting. Hemodynamic status stable, except intermittent tachycardia saturation is 95% room air, blood sugar is 322 patient remains on long and short acting insulin, patient remains on high intensity status is as well as well as anti-seizure medication 09/06/2022, patient seen eval examined during the rounds labs reviewed medications reviewed care plan discussed, respiratory status improved, denies any chest pain, patient has been advised to get CPAP machine from home and use it at nighttime however due to ongoing nausea and emesis reluctant to use it which is understandable, tachycardia significantly improved heart rate is ranging 500-105, patient is afebrile hemodynamic status stable oxygen saturation 97% 36-year-old male with the severe type 1 diabetes mellitus with associated complication presented into the hospital with uncontrolled hyperglycemia also has been episode of nausea vomiting and generalized aches and pains he is well- known to me for issues associated with chronic persistent asthma of moderate category has been on inhaled bronchodilator with inhaled corticosteroids and sleep disorder breathing and sleep apnea recently started on CPAP machine that his symptoms of progressive and last for and family decided to bring him in further evaluation patient has a history of other active medical problems including dyslipidemia hypertension hypertensive cardiovascular disease, hyperlipidemia, severe advanced diabetic gastroparesis. Patient due on sludge and noted to have an episode of tachycardia heart rate was 120 to 1:30 blood pressure slightly high and his ejection fraction is 55-60% with LVH, patient underwent computed tomography scan of the chest abdominal and pelvis, no abnormal infiltrate identified, patient noted to have thickening of esophageal wall likely esophagitis, general surgery is following him a patient was evaluated by cardiovascular services recommended Lopressor with that heart rate is better under control Objective - Vital Signs Vital signs: Vital Signs Temp 97.9 F 09/19/22 08:00 Pulse 99 09/19/22 08:00 Resp 19 09/19/22 08:00 BP 124/78 09/19/22 08:00 Pulse Ox 93 L 09/19/22 08:00 FiO2 100 09/12/22 16:00 Intake & Output 09/18/22 09/19/22 09/19/22 18:59 06:59 18:59 Intake Total 700 Output Total 800 1750 400 Balance -100 -1750 -400 Weight 66 kg Intake: IV 600 Sodium Chloride 0.9% 1, 600 000 ml @ 125 mls/hr IV . Q8H [facility] Rx#:[id number] Intake, IV Titration 100 Amount Anidulafungin 100 mg In 100 Sodium Chloride 0.9% 100 ml @ 84 mls/hr IVPB DAILY @1600 [facility] Rx#:[id number] Output: Urine 800 1750 400 Other: Voiding Method Urinal Urinal Urinal - Exam - Constitutional General appearance: average body habitus, cooperative, disheveled - EENT Eyes: EOMI, PERRLA Ears: bilateral: normal - Neck Carotids: bilateral: upstroke normal Thyroid: bilateral: normal size - Respiratory Respiratory: bilateral: CTA - Cardiovascular Rhythm: regular Heart sounds: normal: S1, S2 - Gastrointestinal General gastrointestinal: soft - Integumentary Integumentary: normal turgor - Neurologic Neurologic: CNII-XII intact - Musculoskeletal Musculoskeletal: gait normal, generalized weakness, strength equal bilaterally - Psychiatric Psychiatric: A&O x's 3, appropriate affect, intact judgment & insight - Labs CBC & Chem 7: 09/18/22 04:30 09/18/22 04:30 Labs: Abnormal Lab Results - Last 24 Hours (Table) 09/18/22 09/18/22 09/19/22 Range/Units 16:21 19:58 01:43 POC Glucose (mg/dL) 186 H 223 H 421 H (70-110) mg/dL 09/19/22 09/19/22 09/19/22 Range/Units 05:47 08:01 11:54 POC Glucose (mg/dL) 65 L 169 H 62 L (70-110) mg/dL 09/19/22 Range/Units 12:11 POC Glucose (mg/dL) 66 L (70-110) mg/dL Assessment and Plan Assessment: Chronic persistent mild asthma, continue bronchodilator along with inhaled Add aerosolized corticosteroids, observe off of IV steroids Sleep disorder breathing and sleep apnea patient recommended to bring CPAP ma chine from home and start using it Uncontrolled diabetes and hyperglycemia, continue short and long-acting insulin Nausea vomiting advanced gastroparesis, continue prokinetic agent and entire reflex measures general surgery has been following Diabetic ketoacidosis resolved Plan: As above Time with Patient: Less than 30
--- NOTE | 2022-09-19 16:12 | P.PN ---
Subjective Progress Note Date: 09/18/22 Principal diagnosis: Leukocytosis Patient is a 36-year-old male with a past medical history significant for insulin-dependent diabetes mellitus and diabetic gastroparesis and diabetic neuropathy did have a history of diabetic foot infection in addition to anxiety bipolar depression patient was brought into the hospital as the patient was noticed to have elevated blood sugar patient has been feeling nauseated and vomiting and complaining of generalized body aches patient has been diagnosed with DKA and is being treated appropriately patient did have a CT of the chest abdominal pelvis with no acute finding except thickened esophagus and the patient was noticed to have elevated white count probably this infectious disease consultation. Patient is status post EGD completed on 09/14/2022 with evidence of esophagitis biopsy has been obtained On today's evaluation that is 09/18/2022 the patient remains to be afebrile, the patient is breathing comfortably on room air, the patient denies having any chest pain shortness of breath or cough no nausea vomiting and no diarrhea has been reported by the nursing staff. Patient did have a hemoglobin of 10.7, white count 7.1, creatinine 0.76 Objective - Vital Signs Vital signs: Vital Signs Temp 97.9 F 09/18/22 08:00 Pulse 76 09/18/22 08:00 Resp 16 09/18/22 08:00 BP 148/94 09/18/22 08:00 Pulse Ox 99 09/18/22 08:00 FiO2 100 09/12/22 16:00 Intake & Output 09/17/22 09/18/22 09/18/22 18:59 06:59 18:59 Intake Total 600 Output Total 1300 Balance 600 -1300 Intake: IV 500 Sodium Chloride 0.9% 1, 500 000 ml @ 125 mls/hr IV . Q8H [facility] Rx#:[id number] Intake, IV Titration 100 Amount Anidulafungin 100 mg In 100 Sodium Chloride 0.9% 100 ml @ 84 mls/hr IVPB DAILY @1600 [facility] Rx#:[id number] Output: Urine 1300 Other: Voiding Method Urinal Urinal # Voids 2 # Bowel Movements 1 - Exam GENERAL DESCRIPTION: Middle-aged male lying in bed in no distress RESPIRATORY SYSTEM: Unlabored breathing , decreased breath sounds at bases HEART: S1 S2 regular rate and rhythm , ABDOMEN: Soft , no tenderness EXTREMITIES: No edema feet - Labs CBC & Chem 7: 09/18/22 04:30 09/18/22 04:30 Labs: Abnormal Lab Results - Last 24 Hours (Table) 09/17/22 09/17/22 09/18/22 Range/Units 13:30 20:07 01:43 RBC (4.30-5.90) m/uL Hgb (13.0-17.5) gm/dL Hct (39.0-53.0) % Sodium (137-145) mmol/L BUN (9-20) mg/dL Glucose (74-99) mg/dL POC Glucose (mg/dL) 64 L 307 H 293 H (70-110) mg/dL Total Protein (6.3-8.2) g/dL Albumin (3.5-5.0) g/dL 09/18/22 09/18/22 09/18/22 Range/Units 04:30 04:30 05:31 RBC 3.47 L (4.30-5.90) m/uL Hgb 10.7 L (13.0-17.5) gm/dL Hct 31.6 L (39.0-53.0) % Sodium 134 L (137-145) mmol/L BUN 8 L (9-20) mg/dL Glucose 270 H (74-99) mg/dL POC Glucose (mg/dL) 356 H (70-110) mg/dL Total Protein 5.3 L (6.3-8.2) g/dL Albumin 2.9 L (3.5-5.0) g/dL 09/18/22 09/18/22 Range/Units 10:00 11:10 RBC (4.30-5.90) m/uL Hgb (13.0-17.5) gm/dL Hct (39.0-53.0) % Sodium (137-145) mmol/L BUN (9-20) mg/dL Glucose (74-99) mg/dL POC Glucose (mg/dL) 337 H 283 H (70-110) mg/dL Total Protein (6.3-8.2) g/dL Albumin (3.5-5.0) g/dL Assessment and Plan (1) Esophagitis Current Visit: No Status: Acute Code(s): K20.90 - ESOPHAGITIS, UNSPECIFIED WITHOUT BLEEDING SNOMED Code(s): 70651171 (2) Leukocytosis Current Visit: No Status: Acute Code(s): D72.829 - ELEVATED WHITE BLOOD CELL COUNT, UNSPECIFIED SNOMED Code(s): 531735801 Plan: 1patient did have elevated pro-calcitonin however no significant cough or sputum production breathing comfortably on room a chest x-ray was negative clinically doubt pneumonia, there is no need for antibiotic therapy 2-patient with leukocytosis possibly related to DKA and the patient not running any fever and white count normalized quickly the patient did have evidence of esophagitis and the patient is status post EGD and biopsy reports did shows erosive gastritis H. pylori was negative, fungal stains are currently pending, patient to continue with Eraxis while waiting for the final report on the Esophageal biopsy regarding fungal stain if negative will recommend discontinuation of Eraxis if positive will need outpatient IV antifungal and monitor clinical course closely Dictation was produced using [employer] dictation software. please excuse any grammatical, word or spelling errors. Time with Patient: Less than 30
--- NOTE | 2022-09-19 16:14 | P.PN ---
Subjective Progress Note Date: 09/19/22 Principal diagnosis: Leukocytosis Patient is a 36-year-old male with a past medical history significant for insulin-dependent diabetes mellitus and diabetic gastroparesis and diabetic neuropathy did have a history of diabetic foot infection in addition to anxiety bipolar depression patient was brought into the hospital as the patient was noticed to have elevated blood sugar patient has been feeling nauseated and vomiting and complaining of generalized body aches patient has been diagnosed with DKA and is being treated appropriately patient did have a CT of the chest abdominal pelvis with no acute finding except thickened esophagus and the patient was noticed to have elevated white count probably this infectious disease consultation. Patient is status post EGD completed on 09/14/2022 with evidence of esophagitis biopsy has been obtained On today's evaluation that is 09/19/2022 the patient continues to be afebrile, the patient is breathing comfortably on room air, the patient denies having any chest pain shortness of breath or cough no nausea vomiting and no diarrhea has been reported by the nursing staff. He has been mostly pain to the lower extremity Patient did have a hemoglobin of 10.7, white count 7.1, creatinine 0.76 as of yesterday no blood work was done today Objective - Vital Signs Vital signs: Vital Signs Temp 97.9 F 09/19/22 08:00 Pulse 99 09/19/22 08:00 Resp 19 09/19/22 08:00 BP 124/78 09/19/22 08:00 Pulse Ox 93 L 09/19/22 08:00 FiO2 100 09/12/22 16:00 Intake & Output 09/18/22 09/19/22 09/19/22 18:59 06:59 18:59 Intake Total 700 Output Total 800 1750 400 Balance -100 -1750 -400 Intake: IV 600 Sodium Chloride 0.9% 1, 600 000 ml @ 125 mls/hr IV . Q8H [facility] Rx#:[id number] Intake, IV Titration 100 Amount Anidulafungin 100 mg In 100 Sodium Chloride 0.9% 100 ml @ 84 mls/hr IVPB DAILY @1600 [facility] Rx#:[id number] Output: Urine 800 1750 400 Other: Voiding Method Urinal Urinal Urinal - Exam GENERAL DESCRIPTION: Middle-aged male lying in bed in no distress RESPIRATORY SYSTEM: Unlabored breathing , decreased breath sounds at bases HEART: S1 S2 regular rate and rhythm , ABDOMEN: Soft , no tenderness EXTREMITIES: No edema feet - Labs CBC & Chem 7: 09/18/22 04:30 09/18/22 04:30 Labs: Abnormal Lab Results - Last 24 Hours (Table) 09/18/22 09/18/22 09/18/22 Range/Units 11:10 16:21 19:58 POC Glucose (mg/dL) 283 H 186 H 223 H (70-110) mg/dL 09/19/22 09/19/22 09/19/22 Range/Units 01:43 05:47 08:01 POC Glucose (mg/dL) 421 H 65 L 169 H (70-110) mg/dL Assessment and Plan (1) Esophagitis Current Visit: No Status: Acute Code(s): K20.90 - ESOPHAGITIS, UNSPECIFIED WITHOUT BLEEDING SNOMED Code(s): 22983420 (2) Leukocytosis Current Visit: No Status: Acute Code(s): D72.829 - ELEVATED WHITE BLOOD CELL COUNT, UNSPECIFIED SNOMED Code(s): 573119951 Plan: 1patient did have elevated pro-calcitonin however no significant cough or sputum production breathing comfortably on room a chest x-ray was negative clini brent doubt pneumonia, there is no need for antibiotic therapy 2-patient with leukocytosis possibly related to DKA and the patient not running any fever and white count normalized quickly the patient did have evidence of esophagitis and the patient is status post EGD and biopsy reports did shows er osive gastritis H. pylori was negative, fungal stains are negative will make it less likely to be fungal esophagitis we will discontinue Eraxis and monitor the patient closely off antifungal therapy Dictation was produced using [employer] dictation software. please excuse any grammatical, word or spelling errors. Time with Patient: Less than 30
[2022-09-19] MEDS: SODIUM CHLORIDE 0.9% 1,000 ML IV SCH ×2 (16:46→16:48)
[2022-09-19 17:09] LABS: Glucose,Whole Blood 154 mg/dL (70-110)
[2022-09-19] MEDS: LURASIDONE 60 MG TAB PO SCH (17:23)
[2022-09-19] MEDS: ATORVASTATIN 20 MG TAB PO SCH (19:57)
[2022-09-19] MEDS: QUEtiapine 25 MG TAB PO SCH (19:57)
[2022-09-19] MEDS: MONTELUKAST 10 MG TAB PO SCH (19:57)
[2022-09-19 20:33] LABS: Glucose,Whole Blood 430 mg/dL (70-110)
[2022-09-19] MEDS: Acetaminophen-Codeine 300-30mg TAB PO PRN (20:57)
[2022-09-20] MEDS: SODIUM CHLORIDE 0.9% 1,000 ML IV SCH ×3 (01:00→15:19)
[2022-09-20 01:34] LABS: Glucose,Whole Blood 125 mg/dL (70-110)
[2022-09-20] MEDS: INSULIN ASPART (NovoLOG) 100 UNIT/ML VIAL SQ SCH ×5 (01:56→12:55)
--- NOTE | 2022-09-20 01:59 | PN ---
PROGRESS NOTE SUBJECTIVE: This is a 37-year-old white male, much improved, eating all foods. Sugars are going up. No abdominal pain, No vomiting. He is going to be taken off Dilaudid, given Tylenol 3. Possible discharge home in the morning. Appears to be stable medically. He is improved in every way. Renal function is normal. No nausea or vomiting. DKA is negative now. Sugars are high due to increased diet. Continue current treatment. Prognosis guarded. Possible discharge home in the morning. OBJECTIVE: LUNGS: Clear. GI: Soft. HEMATOLOGY: Negative for Homans. PSYCH: Fair mood and affect. NEUROLOGIC: Alert and oriented x3. MMODL / IJN: [id number] /
[2022-09-20] MEDS: Acetaminophen-Codeine 300-30mg TAB PO PRN ×3 (02:52→14:32)
[2022-09-20] MEDS: LORazepam 0.5 MG TAB PO PRN ×2 (02:52→08:23)
[2022-09-20 06:01] LABS: Glucose,Whole Blood 292 mg/dL (70-110)
[2022-09-20] MEDS: INSULIN DETEMIR (LEVEMIR) 100 UNIT/ML SYR SQ SCH (06:20)
[2022-09-20 07:18] VITALS: RESP 16
[2022-09-20] MEDS: BUDESONIDE 0.5 MG/2 ML NEBU INHALATION SCH (08:19)
[2022-09-20] MEDS: lisinopriL 10 MG TAB PO SCH (08:23)
[2022-09-20] MEDS: METOPROLOL TARTRATE 50 MG TAB PO SCH (08:23)
[2022-09-20] MEDS: amLODIPine 5 MG TAB PO SCH (08:23)
[2022-09-20] MEDS: QUEtiapine 50 MG TAB PO SCH (08:24)
[2022-09-20] MEDS: LURASIDONE 40 MG TAB PO SCH (08:24)
[2022-09-20] MEDS: TRIHEXYPHENIDYL 2 MG TAB PO SCH (08:24)
[2022-09-20] MEDS: PANTOPRAZOLE 40 MG/10 ML VIAL IVP SCH (08:25)
[2022-09-20] MEDS: prednisoLONE ACETATE 1% OPHTH DROPS 5 ML BTL RIGHT EYE SCH (08:25)
[2022-09-20] MEDS: ATROPINE OPHTH SOLN 1% 5ML BTL LEFT EYE SCH (08:29)
[2022-09-20 09:47] LABS: Glucose,Whole Blood 253 mg/dL (70-110)
[2022-09-20 11:29] LABS: Glucose,Whole Blood 177 mg/dL (70-110)
[2022-09-20 13:34] VITALS: BP 120/78; PULSE 92; TEMP 97.7
[2022-09-20 14:37] LABS: Glucose,Whole Blood 64 mg/dL (70-110)
[2022-09-20 14:55] LABS: Glucose,Whole Blood 103 mg/dL (70-110)
== END 2022-09-20 16:54 | disposition home health service (06) | DRG 637 ==
LOC: EC 13:54 → 3SCARD 18:13 → 2SICU 09-10 08:49 → 4SSUR 09-14 13:54
PROVIDERS: ADMIT Family Medicine; ATTEND Family Medicine
PROC: 06HY33Z Insertion of Infusion Device into Lower Vein, Percutaneous Approach (ICD-10-PCS; 2022-09-10)
PROC: 05HC33Z Insertion of Infusion Device into Left Basilic Vein, Percutaneous Approach (ICD-10-PCS; 2022-09-12)
PROC: 0DB78ZX Excision of Stomach, Pylorus, Via Natural or Artificial Opening Endoscopic, Diagnostic (ICD-10-PCS; 2022-09-14)
PROC: 0DB38ZX Excision of Lower Esophagus, Via Natural or Artificial Opening Endoscopic, Diagnostic (ICD-10-PCS; principal; 2022-09-14 10:45)
DX: E10.10 Type 1 diabetes mellitus with ketoacidosis without coma (principal); G93.41 Metabolic encephalopathy; K29.61 Other gastritis with bleeding; N17.9 Acute kidney failure, unspecified; E87.1 Hypo-osmolality and hyponatremia; R65.10 Systemic inflammatory response syndrome (SIRS) of non-infectious origin without acute organ dysfunction; E10.40 Type 1 diabetes mellitus with diabetic neuropathy, unspecified; K31.84 Gastroparesis; I11.9 Hypertensive heart disease without heart failure; E10.43 Type 1 diabetes mellitus with diabetic autonomic (poly)neuropathy; J44.9 Chronic obstructive pulmonary disease, unspecified; F25.0 Schizoaffective disorder, bipolar type; R56.9 Unspecified convulsions; Z79.4 Long term (current) use of insulin; K20.90 Esophagitis, unspecified without bleeding; J45.30 Mild persistent asthma, uncomplicated; D64.9 Anemia, unspecified; E78.5 Hyperlipidemia, unspecified; E86.0 Dehydration; F41.9 Anxiety disorder, unspecified; K44.9 Diaphragmatic hernia without obstruction or gangrene; G47.33 Obstructive sleep apnea (adult) (pediatric); G47.00 Insomnia, unspecified; H54.3 Unqualified visual loss, both eyes; H40.9 Unspecified glaucoma; M62.838 Other muscle spasm; M79.604 Pain in right leg; R00.0 Tachycardia, unspecified; F17.200 Nicotine dependence, unspecified, uncomplicated; T50.906A Underdosing of unspecified drugs, medicaments and biological substances, initial encounter; Z91.199 Patient's noncompliance with other medical treatment and regimen due to unspecified reason; Z79.899 Other long term (current) drug therapy; Z95.0 Presence of cardiac pacemaker; Z97.8 Presence of other specified devices; Z87.11 Personal history of peptic ulcer disease; Z88.1 Allergy status to other antibiotic agents; Z91.040 Latex allergy status; Z88.8 Allergy status to other drugs, medicaments and biological substances; Z91.048 Other nonmedicinal substance allergy status
CPT/HCPCS: 36410; 36415; 43239; 71045; 71250; 74019; 74176; 76937; 80048; 80051; 80053; 81001; 82009; 82565; 82803; 82947; 83735; 84100; 84132; 84145; 84520; 85025; 85027; 86140; 87040; 87086; 88305; 88312; 93005; 93306; 96361; 96374; 96375; 96376; 99291

== ENCOUNTER 2022-10-11 11:33 | Inpatient (IN) | payer MEDICARE, OTHER ==
[2022-10-11 12:25] LABS: Glucose,Whole Blood 293 mg/dL (70-110)
[2022-10-11] MEDS ORDERED: SODIUM CHLORIDE 0.9% 1,000 ML IV ONE ×2 (13:33)
[2022-10-11 13:35] LABS: Glucose,Whole Blood 397 mg/dL (70-110)
[2022-10-11 13:56] LABS: Basophils % (A) 0 %; Eosinophils % (A) 0 %; HCT 37.9 % (39.0-53.0); HGB 13.2 gm/dL (13.0-17.5); Lymphocytes # (A) 1.3 k/uL (1.0-4.8); Lymphocytes % (A) 13 %; MCH 30.7 pg (25.0-35.0); MCHC 34.8 g/dL (31.0-37.0); MCV 88.1 fL (80.0-100.0); Monocytes # (A) 0.6 k/uL (0-1.0); Monocytes % (A) 7 %; Neutrophils # (A) 7.4 k/uL (1.3-7.7); Neutrophils % (A) 78 %; Platelet Count 362 k/uL (150-450); RDW 12.6 % (11.5-15.5); WBC 9.6 k/uL (3.8-10.6)
[2022-10-11 14:02] LABS: VBG PH 7.46 (7.31-7.41)
[2022-10-11 14:09] LABS: ALT 31 U/L (4-49); AST 37 U/L (17-59); African American GFR (CKD) 78 (>60 ml/min/1.73 sqM); Albumin 4.2 g/dL (3.5-5.0); Alkaline Phosphatase 167 U/L (38-126); Anion Gap 12 mmol/L; Blood Urea Nitrogen 21 mg/dL (9-20); Calcium 9.6 mg/dL (8.4-10.2); Carbon Dioxide 25 mmol/L (22-30); Chloride 89 mmol/L (98-107); Glucose 410 mg/dL (74-99); Non-African American GFR(CKD) 68 (>60 ml/min/1.73 sqM); Potassium 5.2 mmol/L (3.5-5.1); Sodium 126 mmol/L (137-145); Total Bilirubin 0.7 mg/dL (0.2-1.3); Total Protein 6.7 g/dL (6.3-8.2)
--- NOTE | 2022-10-11 14:24 | ED ---
General Adult HPI - General Chief complaint: Dizziness Stated complaint: hyperglycemic-not reading Time Seen by Provider: 10/11/22 13:24 Source: patient, RN notes reviewed, old records reviewed Mode of arrival: wheelchair Limitations: physical limitation - History of Present Illness Initial comments: 37-year-old male history of type 1 diabetes presents for evaluation of lightheadedness, increased thirst. Patient had apparently taken off his insulin pump 5 days ago stating that he was no longer a diabetic. He's had minimal insulin over the past 5 days. He also has not been eating and has had extensive vomiting over this time. No chest pain, no abdominal pain, no fever. - Related Data Home Medications Medication Instructions Recorded Confirmed Atorvastatin [Lipitor] 10 mg PO DAILY 01/08/22 10/11/22 Atropine Sulfate [Atropine Sulfate 1 drop LEFT EYE BID 01/08/22 10/11/22 1%] Insulin Aspart (Niacinamide) 0.01 unit SQ-PUMP CONTINUOUS 01/08/22 10/11/22 [Fiasp 100 Unit/ml Vial] Lurasidone HCl [Latuda] 120 mg PO W/SUPPER 01/08/22 10/11/22 Lurasidone [Latuda] 40 mg PO W/BRKFST 01/08/22 10/11/22 Montelukast [Singulair] 10 mg PO HS 01/08/22 10/11/22 prednisoLONE ACETATE 1% OPHTH 1 drop RIGHT EYE BID 01/08/22 10/11/22 [Pred Forte 1%] Pantoprazole [Protonix] 40 mg PO DAILY 04/08/22 10/11/22 QUEtiapine FUMARATE [SEROquel] 25 mg PO HS@1900 04/08/22 10/11/22 Trihexyphenidyl [Artane] 2 mg PO DAILY 04/08/22 10/11/22 carBAMazepine CHEW [TEGretol Chew] 100 mg PO BID 04/08/22 10/11/22 Albuterol Inhaler [Ventolin Hfa 2 puff INHALATION RT-Q4H PRN 09/03/22 10/11/22 Inhaler] Glucagon Emergency Kit 1 mg IM ONCE PRN 09/03/22 10/11/22 Omeprazole [PriLOSEC] 20 mg PO HS 09/03/22 10/11/22 Rizatriptan Benzoate [Maxalt] 10 mg PO DAILY PRN 09/03/22 10/11/22 Tiotropium 2.5 Mcg/Puff [Spiriva 2 puff INHALATION RT-DAILY 09/03/22 10/11/22 Respimat 2.5 Mcg] Trihexyphenidyl [Artane] 4 mg PO HS 09/03/22 10/11/22 methocarbamoL [Robaxin-750] 750 mg PO BID PRN 09/03/22 10/11/22 Previous Rx's Medication Instructions Recorded Ipratropium-Albuterol Nebulize 3 ml INHALATION RT-QID PRN 30 Days 09/20/22 [Duoneb 0.5 mg-3 mg/3 ml Soln] #120 each Metoclopramide [Reglan] 5 mg PO AC-TID PRN 90 Days #90 tab 09/20/22 Metoprolol Tartrate [Lopressor] 50 mg PO BID 30 Days #60 tab 09/20/22 QUEtiapine [SEROquel] 50 mg PO BID tab 09/20/22 amLODIPine [Norvasc] 5 mg PO BID 30 Days #60 tab 09/20/22 cloNIDine 0.2 MG/24HR PATCH 1 patch TRANSDERM Q7D 4 Days #4 09/20/22 [Catapres-TTS] patch lisinopriL [Zestril] 30 mg PO DAILY 30 Days #30 tab 09/20/22 Allergies Allergy/AdvReac Type Severity Reaction Status Date / Time adhesive tape Allergy Rash/Hives Verified 10/11/22 15:11 cefazolin Allergy Rash/Hives Verified 10/11/22 15:11 latex Allergy Rash/Hives Verified 10/11/22 15:11 metoclopramide [From Reglan] AdvReac Severe Tardive Verified 10/11/22 15:11 Dyskinesia amoxicillin [From Augmentin] AdvReac Nausea & Verified 10/11/22 15:11 Vomiting & Diarrhea clavulanic acid AdvReac Nausea & Verified 10/11/22 15:11 [From Augmentin] Vomiting & Diarrhea duloxetine [From Cymbalta] AdvReac Hallucinati Verified 10/11/22 15:11 ons pregabalin [From Lyrica] AdvReac Hallucinati Verified 10/11/22 15:11 ons Review of Systems ROS Statement: Those systems with pertinent positive or pertinent negative responses have been documented in the HPI. ROS Other: All systems not noted in ROS Statement are negative. Past Medical History Past Medical History: Diabetes Mellitus Additional Past Medical History / Comment(s): bilateral glaucoma, Tachycardia, diabetic gastropariesis, diabetic neuropathy, migraine headaches, peptic ulcer disease, retinal detachment status post multiple surgeries History of Any Multi-Drug Resistant Organisms: None Reported Past Surgical History: Pacemaker Additional Past Surgical History / Comment(s): eye surgery, EGDs Past Anesthesia/Blood Transfusion Reactions: No Reported Reaction Past Psychological History: Anxiety, Bipolar, Depression Smoking Status: Current every day smoker Past Alcohol Use History: None Reported Past Drug Use History: Marijuana - Past Family History Father Additional Family Medical History / Comment(s): Patient does not know his father's age nor his health problems. Mother Additional Family Medical History / Comment(s): Patient does not know his mother's age but states she has fibromyalgia. Sister(s) Additional Family Medical History / Comment(s): Patient has 1 sister with no major medical problems. General Exam Limitations: physical limitation General appearance: alert, in distress Head exam: Present: atraumatic, normocephalic Eye exam: Present: normal appearance, PERRL ENT exam: Present: mucous membranes dry Neck exam: Present: normal inspection Respiratory exam: Present: normal lung sounds bilaterally. Absent: respiratory distress, wheezes Cardiovascular Exam: Present: normal rhythm, tachycardia GI/Abdominal exam: Present: soft. Absent: distended, tenderness, guarding Extremities exam: Present: normal inspection, normal capillary refill. Absent: pedal edema Neurological exam: Present: alert, oriented X3, CN II-XII intact. Absent: motor sensory deficit Skin exam: Present: warm, dry Course Vital Signs 10/11/22 10/11/22 12:20 15:06 Temperature 98.6 F Pulse Rate 157 H 125 H Respiratory 22 18 Rate Blood Pressure 111/70 154/97 O2 Sat by Pulse 98 98 Oximetry Medical Decision Making - Medical Decision Making Was pt. sent in by a medical professional or institution (, PA, BUSINESS ANALYST MANAGER, urgent care, hospital, or assisted...) When possible be specific @ -No Did you speak to anyone other than the patient for history (EMS, parent, family, police, friend...)? What history was obtained from this source @ -No Did you review nursing and triage notes (agree or disagree)? Why? @ -I reviewed and agree with nursing and triage notes Were old charts reviewed (outside hosp., previous admission, EMS record, old EKG, old radiological studies, urgent care reports/EKG's, assisted records)? Report findings @ -No old charts were reviewed Differential Diagnosis (chest pain, altered mental status, abdominal pain women, abdominal pain men, vaginal bleeding, weakness, fever, dyspnea, syncope, headache, dizziness, GI bleed, back pain, seizure, CVA, palpatations, mental health, musculoskeletal)? @ -Differential Weakness: Hypoglycemia, DKA, hyperglycemia shock, sepsis, hyponatremia, anemia, infection, HI, ETOH, adverse medicine reaction, overdose, stroke, this is not meant to be an all-inclusive list. EKG interpreted by me (3pts min.). @Sinus tachycardia rate of 154, LA interval 109, QRS duration 72, QTC [address] segment elevation. X-rays interpreted by me (1pt min.). @ -None done CT interpreted by me (1pt min.). @ -None done U/S interpreted by me (1pt. min.). @ -None done What testing was considered but not performed or refused? (CT, X-rays, U/S, labs)? Why? @ -None What meds were considered but not given or refused? Why? @ -None Did you discuss the management of the patient with other professionals (professionals i.e. , PA, BUSINESS ANALYST MANAGER, lab, RT, psych nurse, clinical social work aide, decorating consultant, teacher, property portfolio officer, case folder)? Give summary @ -Dr. Vickers Was smoking cessation discussed for >3mins.? @ -No Was critical care preformed (if so, how long)? @ -No Were there social determinants of health that impacted care today? How? (Homelessness, low income, unemployed, alcoholism, drug addiction, transportation, low edu. Level, literacy, decrease access to med. care, alf, rehab)? @ -No Was there de-escalation of care discussed even if they declined (Discuss DNR or withdrawal of care, Hospice)? DNR status @ -No What co-morbidities impacted this encounter? (DM, HTN, Smoking, COPD, CAD, Cancer, CVA, ARF, Chemo, Hep., AIDS, mental health diagnosis, sleep apnea, morbid obesity)? @ Type 1 diabetes Was patient admitted / discharged? Hospital course, mention meds given and route, prescriptions, significant lab abnormalities, going to OR and other pertinent info. @ -37 -year-old male presenting with vomiting, dehydration, type I diabetic. Sugar is 410. He is in acute kidney injury with a creatinine of 1.34. He is acetone positive but is not currently acidotic. He has hyponatremia 126. Mild lactic acidosis. Urinalysis pending. Patient given 2 L of IV fluid. He was initially tachycardic in the 150s he does improve with hydration to the 120s. He will be admitted to his primary care physician for evaluation and treatment. Undiagnosed new problem with uncertain prognosis? @ -No Drug Therapy requiring intensive monitoring for toxicity (Heparin, Nitro, Insulin, Cardizem)? @ -No Were any procedures done? @ -No Diagnosis/symptom? @ Dehydration, acute kidney injury, hyperglycemia Acute, or Chronic, or Acute on Chronic? @ -Acute Uncomplicated (without systemic symptoms) or Complicated (systemic symptoms)? @ Complicated Side effects of treatment? @ -No Exacerbation, Progression, or Severe Exacerbation? @ -No Poses a threat to life or bodily function? How? (Chest pain, USA, HI, pneumonia, PE, COPD, DKA, ARF, appy, cholecystitis, CVA, Diverticulitis, Homicidal, Suicidal, threat to staff... and all critical care pts) @ -[Moderate risk - Lab Data Result diagrams: 10/11/22 13:45 10/11/22 13:45 Lab Results 10/11/22 10/11/22 10/11/22 Range/Units 12:24 13:33 13:45 WBC 9.6 (3.8-10.6) k/uL RBC 4.30 (4.30-5.90) m/uL Hgb 13.2 (13.0-17.5) gm/dL Hct 37.9 L (39.0-53.0) % MCV 88.1 (80.0-100.0) fL MCH 30.7 (25.0-35.0) pg MCHC 34.8 (31.0-37.0) g/dL RDW 12.6 (11.5-15.5) % Plt Count 362 (150-450) k/uL MPV 7.0 Neutrophils % 78 % Lymphocytes % 13 % Monocytes % 7 % Eosinophils % 0 % Basophils % 0 % Neutrophils # 7.4 (1.3-7.7) k/uL Lymphocytes # 1.3 (1.0-4.8) k/uL Monocytes # 0.6 (0-1.0) k/uL Eosinophils # 0.0 (0-0.7) k/uL Basophils # 0.0 (0-0.2) k/uL VBG pH (7.31-7.41) VBG pCO2 (37-51) mmHg VBG HCO3 (24-28) mmol/L Sodium (137-145) mmol/L Potassium (3.5-5.1) mmol/L Chloride (98-107) mmol/L Carbon Dioxide (22-30) mmol/L Anion Gap mmol/L BUN (9-20) mg/dL Creatinine (0.66-1.25) mg/dL Est GFR (CKD-EPI)AfAm (>60 ml/min/1.73 sqM) Est GFR (CKD-EPI)NonAf (>60 ml/min/1.73 sqM) Glucose (74-99) mg/dL POC Glucose (mg/dL) 293 H 397 H (70-110) mg/dL POC Glu Speed Winder ID Halima Suarez Leandra Plasma Lactic Acid Red (0.7-2.0) mmol/L Calcium (8.4-10.2) mg/dL Total Bilirubin (0.2-1.3) mg/dL AST (17-59) U/L ALT (4-49) U/L Alkaline Phosphatase (38-126) U/L Total Protein (6.3-8.2) g/dL Albumin (3.5-5.0) g/dL Acetone, Qual (Negative) 10/11/22 10/11/22 10/11/22 Range/Units 13:45 13:45 13:45 WBC (3.8-10.6) k/uL RBC (4.30-5.90) m/uL Hgb (13.0-17.5) gm/dL Hct (39.0-53.0) % MCV (80.0-100.0) fL MCH (25.0-35.0) pg MCHC (31.0-37.0) g/dL RDW (11.5-15.5) % Plt Count (150-450) k/uL MPV Neutrophils % % Lymphocytes % % Monocytes % % Eosinophils % % Basophils % % Neutrophils # (1.3-7.7) k/uL Lymphocytes # (1.0-4.8) k/uL Monocytes # (0-1.0) k/uL Eosinophils # (0-0.7) k/uL Basophils # (0-0.2) k/uL VBG pH 7.46 H (7.31-7.41) VBG pCO2 40 (37-51) mmHg VBG HCO3 28 (24-28) mmol/L Sodium 126 L (137-145) mmol/L Potassium 5.2 H (3.5-5.1) mmol/L Chloride 89 L (98-107) mmol/L Carbon Dioxide 25 (22-30) mmol/L Anion Gap 12 mmol/L BUN 21 H (9-20) mg/dL Creatinine 1.34 H (0.66-1.25) mg/dL Est GFR (CKD-EPI)AfAm 78 (>60 ml/min/1.73 sqM) Est GFR (CKD-EPI)NonAf 68 (>60 ml/min/1.73 sqM) Glucose 410 H (74-99) mg/dL POC Glucose (mg/dL) (70-110) mg/dL POC Glu Speed Winder ID Plasma Lactic Acid Red 2.1 H* (0.7-2.0) mmol/L Calcium 9.6 (8.4-10.2) mg/dL Total Bilirubin 0.7 (0.2-1.3) mg/dL AST 37 (17-59) U/L ALT 31 (4-49) U/L Alkaline Phosphatase 167 H (38-126) U/L Total Protein 6.7 (6.3-8.2) g/dL Albumin 4.2 (3.5-5.0) g/dL Acetone, Qual Positive (Negative) 10/11/22 Range/Units 15:09 WBC (3.8-10.6) k/uL RBC (4.30-5.90) m/uL Hgb (13.0-17.5) gm/dL Hct (39.0-53.0) % MCV (80.0-100.0) fL MCH (25.0-35.0) pg MCHC (31.0-37.0) g/dL RDW (11.5-15.5) % Plt Count (150-450) k/uL MPV Neutrophils % % Lymphocytes % % Monocytes % % Eosinophils % % Basophils % % Neutrophils # (1.3-7.7) k/uL Lymphocytes # (1.0-4.8) k/uL Monocytes # (0-1.0) k/uL Eosinophils # (0-0.7) k/uL Basophils # (0-0.2) k/uL VBG pH (7.31-7.41) VBG pCO2 (37-51) mmHg VBG HCO3 (24-28) mmol/L Sodium (137-145) mmol/L Potassium (3.5-5.1) mmol/L Chloride (98-107) mmol/L Carbon Dioxide (22-30) mmol/L Anion Gap mmol/L BUN (9-20) mg/dL Creatinine (0.66-1.25) mg/dL Est GFR (CKD-EPI)AfAm (>60 ml/min/1.73 sqM) Est GFR (CKD-EPI)NonAf (>60 ml/min/1.73 sqM) Glucose (74-99) mg/dL POC Glucose (mg/dL) 418 H (70-110) mg/dL POC Glu Speed Winder ID Willing, Kylee Plasma Lactic Acid Red (0.7-2.0) mmol/L Calcium (8.4-10.2) mg/dL Total Bilirubin (0.2-1.3) mg/dL AST (17-59) U/L ALT (4-49) U/L Alkaline Phosphatase (38-126) U/L Total Protein (6.3-8.2) g/dL Albumin (3.5-5.0) g/dL Acetone, Qual (Negative) Disposition Clinical Impression: PADMINI (acute kidney injury), Hyponatremia, Tachycardia, Hyperglycemia, Dehydration Disposition: ADMITTED IP TO THIS HOSP Condition: Stable Is patient prescribed a controlled substance at d/c from ED?: No Referrals: Wisam Vickers MD [Primary Care Provider] - 1-2 days Time of Disposition: 15:20
[2022-10-11] MEDS ORDERED: METOCLOPRAMIDE 5 MG TAB PO PRN (15:05)
[2022-10-11] MEDS ORDERED: IPRATROPIUM-ALBUTEROL 3 ML NEB INHALATION PRN (15:05)
[2022-10-11] MEDS ORDERED: SODIUM CHLORIDE 0.9% 1,000 ML IV STA (15:08)
[2022-10-11 15:11] LABS: Glucose,Whole Blood 418 mg/dL (70-110)
[2022-10-11] MEDS ORDERED: cloNIDine 0.2 MG/24HR PATCH TRANSDERM SCH (15:15)
[2022-10-11] MEDS ORDERED: INSULIN ASPART 100 UNIT/ML SQ-PUMP SCH (15:15)
[2022-10-11] MEDS ORDERED: [UNRECOGNIZED DRUG - OTHER] SQ-PUMP SCH (15:15)
[2022-10-11] MEDS ORDERED: NALOXONE 0.4 MG/ML 1 ML VIAL IV PRN (15:18)
[2022-10-11] MEDS ORDERED: ACETAMINOPHEN TAB 325 MG TAB PO PRN (15:18)
[2022-10-11 15:22] LABS: Appearance,Urine Clear (Clear); Bilirubin,Urine Negative (Negative); Blood,Urine Negative (Negative); Color,Urine Colorless; Glucose,Urine (UA) 4+ (Negative); Ketones,Urine 1+ (Negative); Leukocyte Esterase,Urine Negative (Negative); Nitrite,Urine Negative (Negative); PH, Urine 5.5 (5.0-8.0); Protein,Urine Negative (Negative); Specific Gravity,Urine 1.008 (1.001-1.035); Urobilinogen,Urine <2.0 mg/dL (<2.0)
[2022-10-11] MEDS ORDERED: SODIUM CHLORIDE 0.9% 1,000 ML IV SCH (15:30)
[2022-10-11] MEDS ORDERED: DEXTROSE 50% SYRINGE 50 ML IVP PRN ×2 (16:02)
[2022-10-11] MEDS ORDERED: INSULIN REGULAR BOLUS (FROM DRIP BAG) IV ONE (16:02)
[2022-10-11] MEDS ORDERED: Potassium Replacement Protocol 1 EACH MISC MISCELLANE PRN (16:02)
[2022-10-11] MEDS ORDERED: Magnesium Replacement Protocol 1 EACH MISC MISCELLANE PRN (16:02)
[2022-10-11] MEDS ORDERED: INSULIN REGULAR 100 UNIT in SODIUM CHLORIDE 0.9% 100 ML IV SCH (16:15)
[2022-10-11] MEDS: HYDROmorphone 0.5 MG/0.5 ML SYRINGE IVP PRN ×2 (16:48→20:29)
[2022-10-11] MEDS: SODIUM CHLORIDE 0.9% 1,000 ML IV SCH ×2 (17:30→22:39)
[2022-10-11 18:30] LABS: Glucose,Whole Blood 440 mg/dL (70-110)
[2022-10-11 19:00] LABS: Glucose,Whole Blood 385 mg/dL (70-110)
[2022-10-11] MEDS: LURASIDONE 60 MG TAB PO SCH (19:10)
[2022-10-11 20:15] LABS: African American GFR (CKD) >90 (>60 ml/min/1.73 sqM); Anion Gap 17 mmol/L; Blood Urea Nitrogen 16 mg/dL (9-20); Carbon Dioxide 18 mmol/L (22-30); Chloride 100 mmol/L (98-107); Glucose 263 mg/dL (74-99); Non-African American GFR(CKD) 84 (>60 ml/min/1.73 sqM); Potassium 4.2 mmol/L (3.5-5.1); Sodium 135 mmol/L (137-145)
[2022-10-11 20:18] LABS: Glucose,Whole Blood 189 mg/dL (70-110)
[2022-10-11] MEDS: ATROPINE OPHTH SOLN 1% 5ML BTL LEFT EYE SCH (20:28)
[2022-10-11] MEDS: amLODIPine 5 MG TAB PO SCH (20:28)
[2022-10-11] MEDS: METOPROLOL TARTRATE 50 MG TAB PO SCH (20:28)
[2022-10-11] MEDS: QUEtiapine 25 MG TAB PO SCH (20:28)
[2022-10-11] MEDS: MONTELUKAST 10 MG TAB PO SCH (20:29)
[2022-10-11] MEDS: prednisoLONE ACETATE 1% OPHTH DROPS 5 ML BTL RIGHT EYE SCH (20:29)
[2022-10-11] MEDS: TRIHEXYPHENIDYL 2 MG TAB PO SCH (20:29)
[2022-10-11] MEDS: QUEtiapine 50 MG TAB PO SCH (20:29)
[2022-10-11] MEDS: PANTOPRAZOLE 40 MG TABLET PO SCH (20:29)
[2022-10-11 21:10] LABS: Glucose,Whole Blood 100 mg/dL (70-110)
[2022-10-11 21:32] LABS: Glucose,Whole Blood 65 mg/dL (70-110)
[2022-10-11] MEDS: D5-0.45% NACL WITH KCL 20MEQ/L 1,000 ML IV SCH (21:32)
[2022-10-11] MEDS: ONDANSETRON 4 MG/2 ML VIAL IVP PRN (21:32)
[2022-10-11 21:54] LABS: Glucose,Whole Blood 65 mg/dL (70-110)
[2022-10-11 22:04] LABS: Glucose,Whole Blood 128 mg/dL (70-110)
[2022-10-11 23:10] LABS: Glucose,Whole Blood 265 mg/dL (70-110)
[2022-10-12 00:47] LABS: Glucose,Whole Blood 209 mg/dL (70-110)
[2022-10-12 00:51] LABS: African American GFR (CKD) >90 (>60 ml/min/1.73 sqM); Anion Gap 8 mmol/L; Blood Urea Nitrogen 13 mg/dL (9-20); Carbon Dioxide 25 mmol/L (22-30); Chloride 98 mmol/L (98-107); Glucose 258 mg/dL (74-99); Non-African American GFR(CKD) >90 (>60 ml/min/1.73 sqM); Phosphorus 3.2 mg/dL (2.5-4.5); Potassium 4.3 mmol/L (3.5-5.1); Sodium 131 mmol/L (137-145)
[2022-10-12] MEDS: HYDROmorphone 0.5 MG/0.5 ML SYRINGE IVP PRN ×7 (00:55→20:58)
[2022-10-12] MEDS ORDERED: INSULIN DETEMIR (LEVEMIR) 100 UNIT/ML SYR SQ SCH ×2 (01:15→21:00)
[2022-10-12 01:52] LABS: Glucose,Whole Blood 148 mg/dL (70-110)
[2022-10-12] MEDS: D5-0.45% NACL WITH KCL 20MEQ/L 1,000 ML IV SCH ×3 (02:48→04:15)
[2022-10-12] MEDS: SODIUM CHLORIDE 0.9% 1,000 ML IV SCH (02:50)
[2022-10-12 03:06] LABS: Glucose,Whole Blood 124 mg/dL (70-110)
[2022-10-12] MEDS: INSULIN ASPART (NovoLOG) 100 UNIT/ML VIAL SQ SCH ×5 (03:06→20:56)
[2022-10-12 05:23] LABS: Glucose,Whole Blood 91 mg/dL (70-110)
[2022-10-12] MEDS: LURASIDONE 40 MG TAB PO SCH (05:39)
[2022-10-12 06:37] LABS: Glucose,Whole Blood 89 mg/dL (70-110)
[2022-10-12 07:44] LABS: Basophils % (A) 0 %; Eosinophils # (A) 0.1 k/uL (0-0.7); Eosinophils % (A) 1 %; HCT 36.7 % (39.0-53.0); HGB 12.3 gm/dL (13.0-17.5); Lymphocytes # (A) 2.3 k/uL (1.0-4.8); Lymphocytes % (A) 37 %; MCH 30.6 pg (25.0-35.0); MCHC 33.6 g/dL (31.0-37.0); Mean Platelet Volume 6.9; Monocytes # (A) 0.4 k/uL (0-1.0); Monocytes % (A) 6 %; Neutrophils # (A) 3.3 k/uL (1.3-7.7); Neutrophils % (A) 52 %; Platelet Count 330 k/uL (150-450); RBC 4.03 m/uL (4.30-5.90); RDW 12.6 % (11.5-15.5); WBC 6.2 k/uL (3.8-10.6)
[2022-10-12] MEDS: IPRATROPIUM 0.5 MG/2.5 ML NEBU INHALATION SCH ×4 (07:49→20:27)
[2022-10-12] MEDS: METOPROLOL TARTRATE 50 MG TAB PO SCH ×2 (08:05→20:57)
[2022-10-12] MEDS: QUEtiapine 50 MG TAB PO SCH ×2 (08:06→20:57)
[2022-10-12 08:07] LABS: ALT 23 U/L (4-49); AST 24 U/L (17-59); African American GFR (CKD) >90 (>60 ml/min/1.73 sqM); Albumin 3.6 g/dL (3.5-5.0); Alkaline Phosphatase 123 U/L (38-126); Anion Gap 4 mmol/L; Blood Urea Nitrogen 9 mg/dL (9-20); Carbon Dioxide 28 mmol/L (22-30); Chloride 103 mmol/L (98-107); Glucose 90 mg/dL (74-99); Non-African American GFR(CKD) >90 (>60 ml/min/1.73 sqM); Phosphorus 3.2 mg/dL (2.5-4.5); Potassium 4.1 mmol/L (3.5-5.1); Sodium 135 mmol/L (137-145); Total Bilirubin 0.5 mg/dL (0.2-1.3); Total Protein 5.9 g/dL (6.3-8.2)
[2022-10-12 10:09] LABS: Glucose,Whole Blood 195 mg/dL (70-110)
[2022-10-12] MEDS: lisinopriL 10 MG TAB PO SCH (10:54)
[2022-10-12] MEDS: ONDANSETRON 4 MG/2 ML VIAL IVP PRN ×2 (10:58→17:07)
[2022-10-12] MEDS: ATROPINE OPHTH SOLN 1% 5ML BTL LEFT EYE SCH ×2 (11:10→20:56)
[2022-10-12] MEDS: ATORVASTATIN 10 MG TAB PO SCH (11:10)
[2022-10-12] MEDS: prednisoLONE ACETATE 1% OPHTH DROPS 5 ML BTL RIGHT EYE SCH ×2 (11:10→20:57)
[2022-10-12 11:30] LABS: Glucose,Whole Blood 287 mg/dL (70-110)
--- NOTE | 2022-10-12 11:34 | P.CRDCN ---
History of Present Illness History of present illness: HISTORY OF PRESENT ILLNESS: This is a 37-year-old male with a past medical history significant for diabetes, hypertension, and hyperlipidemia. Patient follows with a application support consultant out of town. We have been asked to see the patient in consultation for tachycardia. Garth vaca examined at the bedside. Patient states he has not been eating or drinking for the last 5 days. He believes he has food poisoning. He reports generalized pain. He denies any chest pain or pressure. He denies SOB. He states Dr. Vickers started him on additional blood pressure medications recently. He states his blood pressure has been running low at home. Patient's heart rates were initially elevated in the 150s when he presented to the hospital. Patient's heart rates have improved down into the low 100s. * EKG reveals sinus tachycardia with a heart rate of 150. No signs of acute ischemia. * Laboratory data: WBC 6.2. Hemoglobin 12.3. Platelet count 330. Sodium 135. Potassium 4.1. BUN 9. Creatinine 0.85. * Current home cardiac medications include Lipitor 10 mg daily, metoprolol titrate 50 mg twice a day, lisinopril 30mg daily, and amlodipine 5 mg twice a day * Most recent echocardiogram obtained in August 2022 revealing ejection fraction 55-60% with mild left ventricular hypertrophy REVIEW OF SYSTEMS: At the time of my exam: CONSTITUTIONAL: Denies fever or chills. HEENT: Denies blurred vision, vision changes, or eye pain. Denies hemoptysis CARDIOVASCULAR: Denies chest pain. Denies orthopnea. Denies PND. Denies palpitations RESPIRATORY: Denies shortness of breath. GASTROINTESTINAL: Denies abdominal pain. Denies nausea or vomiting. HEMATOLOGIC: Denies bleeding disorders. GENITOURINARY: Denies any blood in urine. SKIN: Denies pruitis. Denies rash. PHYSICAL EXAM: VITAL SIGNS: Reviewed. GENERAL: Well-developed in no acute distress. HEENT: Head is normocephalic. Pupils are equal, round. Sclerae anicteric. Mucous membranes of the mouth are moist. Neck supple. No JVD or thyromegaly LUNGS: Respirations even and unlabored. Lungs essentially clear to auscultation bilaterally. HEART: Mildly tachycardic. Regular rate and rhythm. S1 and S2 heard. ABDOMEN: Soft. Nondistended. Nontender. EXTREMITIES: Normal range of motion. No clubbing or cyanosis. Peripheral pulses intact. No lower extremity edema NEUROLOGIC: Awake and alert. Oriented x 3. ASSESSMENT: Nausea and vomiting Acute kidney injury Hyperglycemia Diabetes Sinus tachycardia, improving Hypertension Hyperlipidemia Medication noncompliance Schizophrenia PLAN: No need to repeat echocardiogram is performed in August 2022 Resume home cardiac medications Patient's tachycardia may be worsened by dehydration. His tachycardia has improved this morning. No further inpatient recommendations from a cardiology standpoint We will sign off. Please reconsult if needed. Nurse practitioner note has been reviewed by physician. Signing provider agrees with the documented findings, assessment, and plan of care. Past Medical History Past Medical History: Diabetes Mellitus Additional Past Medical History / Comment(s): bilateral glaucoma, Tachycardia, diabetic gastropariesis, diabetic neuropathy, migraine headaches, peptic ulcer disease, retinal detachment status post multiple surgeries History of Any Multi-Drug Resistant Organisms: None Reported Past Surgical History: Pacemaker Additional Past Surgical History / Comment(s): eye surgery, EGDs Past Anesthesia/Blood Transfusion Reactions: No Reported Reaction Type of Cardiac Device: Unknown Device Placement Date:: 2016 Past Psychological History: Anxiety, Bipolar, Depression Smoking Status: Current every day smoker Past Alcohol Use History: None Reported Additional Past Alcohol Use History / Comment(s): Patient is a smoker one pack per day for an unknown number of years. He denies any medical marijuana, marijuana, street drug or alcohol use. He does live at home with his parents. He is single and does not have any children. Past Drug Use History: Marijuana - Past Family History Father Additional Family Medical History / Comment(s): Patient does not know his father's age nor his health problems. Mother Additional Family Medical History / Comment(s): Patient does not know his mother's age but states she has fibromyalgia. Sister(s) Additional Family Medical History / Comment(s): Patient has 1 sister with no major medical problems. Medications and Allergies Home Medications Medication Instructions Recorded Confirmed Type Atorvastatin [Lipitor] 10 mg PO DAILY 01/08/22 10/11/22 History Atropine Sulfate [Atropine Sulfate 1 drop LEFT EYE BID 01/08/22 10/11/22 History 1%] Insulin Aspart (Niacinamide) 0.01 unit SQ-PUMP CONTINUOUS 01/08/22 10/11/22 History [Fiasp 100 Unit/ml Vial] Lurasidone HCl [Latuda] 120 mg PO W/SUPPER 01/08/22 10/11/22 History Lurasidone [Latuda] 40 mg PO W/BRKFST 01/08/22 10/11/22 History Montelukast [Singulair] 10 mg PO HS 01/08/22 10/11/22 History prednisoLONE ACETATE 1% OPHTH 1 drop RIGHT EYE BID 01/08/22 10/11/22 History [Pred Forte 1%] Pantoprazole [Protonix] 40 mg PO DAILY 04/08/22 10/11/22 History QUEtiapine FUMARATE [SEROquel] 25 mg PO HS@1900 04/08/22 10/11/22 History Trihexyphenidyl [Artane] 2 mg PO DAILY 04/08/22 10/11/22 History carBAMazepine CHEW [TEGretol Chew] 100 mg PO BID 04/08/22 10/11/22 History Albuterol Inhaler [Ventolin Hfa 2 puff INHALATION RT-Q4H PRN 09/03/22 10/11/22 History Inhaler] Glucagon Emergency Kit 1 mg IM ONCE PRN 09/03/22 10/11/22 History Omeprazole [PriLOSEC] 20 mg PO HS 09/03/22 10/11/22 History Rizatriptan Benzoate [Maxalt] 10 mg PO DAILY PRN 09/03/22 10/11/22 History Tiotropium 2.5 Mcg/Puff [Spiriva 2 puff INHALATION RT-DAILY 09/03/22 10/11/22 History Respimat 2.5 Mcg] Trihexyphenidyl [Artane] 4 mg PO HS 09/03/22 10/11/22 History methocarbamoL [Robaxin-750] 750 mg PO BID PRN 09/03/22 10/11/22 History Ipratropium-Albuterol Nebulize 3 ml INHALATION RT-QID PRN 30 Days 09/20/22 10/11/22 Rx [Duoneb 0.5 mg-3 mg/3 ml Soln] #120 each Metoclopramide [Reglan] 5 mg PO AC-TID PRN 90 Days #90 tab 09/20/22 10/11/22 Rx Metoprolol Tartrate [Lopressor] 50 mg PO BID 30 Days #60 tab 09/20/22 10/11/22 Rx QUEtiapine [SEROquel] 50 mg PO BID tab 09/20/22 10/11/22 Rx amLODIPine [Norvasc] 5 mg PO BID 30 Days #60 tab 09/20/22 10/11/22 Rx cloNIDine 0.2 MG/24HR PATCH 1 patch TRANSDERM Q7D 4 Days #4 09/20/22 10/11/22 Rx [Catapres-TTS] patch lisinopriL [Zestril] 30 mg PO DAILY 30 Days #30 tab 09/20/22 10/11/22 Rx Allergies Allergy/AdvReac Type Severity Reaction Status Date / Time adhesive tape Allergy Rash/Hives Verified 10/11/22 15:11 cefazolin Allergy Rash/Hives Verified 10/11/22 15:11 latex Allergy Rash/Hives Verified 10/11/22 15:11 metoclopramide [From Reglan] AdvReac Severe Tardive Verified 10/11/22 15:11 Dyskinesia amoxicillin [From Augmentin] AdvReac Nausea & Verified 10/11/22 15:11 Vomiting & Diarrhea clavulanic acid AdvReac Nausea & Verified 10/11/22 15:11 [From Augmentin] Vomiting & Diarrhea duloxetine [From Cymbalta] AdvReac Hallucinati Verified 10/11/22 15:11 ons pregabalin [From Lyrica] AdvReac Hallucinati Verified 10/11/22 15:11 ons Physical Exam Vitals: Vital Signs Temp Pulse Pulse Resp BP BP Pulse Ox 10/12/22 08:18 17 10/12/22 08:13 97.7 F 102 H 17 155/91 94 L 10/12/22 04:00 103 H 16 147/80 95 10/12/22 01:29 16 10/12/22 00:00 105 H 16 130/83 94 L 10/11/22 20:18 98 F 130 H 16 138/85 95 10/11/22 20:00 130 H 16 10/11/22 19:09 146 H 18 10/11/22 16:30 121 H 18 163/95 96 10/11/22 16:00 121 H 18 154/97 96 10/11/22 15:30 117 H 18 154/97 97 10/11/22 15:06 125 H 18 154/97 98 10/11/22 15:00 118 H 20 154/95 98 10/11/22 14:30 120 H 20 154/95 99 10/11/22 14:00 123 H 18 143/90 98 10/11/22 12:20 98.6 F 157 H 22 111/70 98 Intake and Output 10/11/22 10/12/22 10/12/22 22:59 06:59 14:59 Intake Total 28.530 10.391 Output Total 900 1000 600 Balance -871.470 -989.609 -600 Intake: Intake, IV Titration 28.530 10.391 Amount Insulin Regular 100 unit 28.530 10.391 In Sodium Chloride 0.9% 100 ml @ 0.1 UNITS/KG/HR 6.872 mls/hr IV .[id number] [facility] Rx#:[id number] Output: Urine 900 1000 600 Other: Voiding Method Urinal Urinal Urinal Weight 68.039 kg Results 10/12/22 07:19 10/12/22 07:19 Cardiac Enzymes 10/11/22 10/12/22 Range/Units 13:45 07:19 AST 37 24 (17-59) U/L CBC 10/11/22 10/12/22 Range/Units 13:45 07:19 WBC 9.6 6.2 (3.8-10.6) k/uL RBC 4.30 4.03 L (4.30-5.90) m/uL Hgb 13.2 12.3 L (13.0-17.5) gm/dL Hct 37.9 L 36.7 L (39.0-53.0) % Plt Count 362 330 (150-450) k/uL Comprehensive Metabolic Panel 10/11/22 10/11/22 10/11/22 Range/Units 13:45 19:36 23:30 Sodium 126 L 135 L 131 L (137-145) mmol/L Potassium 5.2 H 4.2 4.3 (3.5-5.1) mmol/L Chloride 89 L 100 98 (98-107) mmol/L Carbon Dioxide 25 18 L 25 (22-30) mmol/L BUN 21 H 16 13 (9-20) mg/dL Creatinine 1.34 H 1.12 0.96 (0.66-1.25) mg/dL Glucose 410 H 263 H 258 H (74-99) mg/dL Calcium 9.6 (8.4-10.2) mg/dL AST 37 (17-59) U/L ALT 31 (4-49) U/L Alkaline Phosphatase 167 H (38-126) U/L Total Protein 6.7 (6.3-8.2) g/dL Albumin 4.2 (3.5-5.0) g/dL 10/12/22 Range/Units 07:19 Sodium 135 L (137-145) mmol/L Potassium 4.1 (3.5-5.1) mmol/L Chloride 103 (98-107) mmol/L Carbon Dioxide 28 (22-30) mmol/L BUN 9 (9-20) mg/dL Creatinine 0.85 (0.66-1.25) mg/dL Glucose 90 (74-99) mg/dL Calcium 9.0 (8.4-10.2) mg/dL AST 24 (17-59) U/L ALT 23 (4-49) U/L Alkaline Phosphatase 123 (38-126) U/L Total Protein 5.9 L (6.3-8.2) g/dL Albumin 3.6 (3.5-5.0) g/dL Current Medications Generic Name Dose Route Start Last Admin Trade Name Freq PRN Reason Stop Dose Admin Acetaminophen 650 mg 10/11/22 15:18 Acetaminophen Tab 325 Mg Tab PO Q6HR PRN Mild Pain or Fever > 100.5 Albuterol/Ipratropium 3 ml 10/11/22 15:05 Ipratropium-Albuterol 3 Ml Neb INHALATION RT-QID PRN Shortness Of Breath Or Wheezing Amlodipine Besylate 5 mg 10/11/22 21:00 10/11/22 20:28 Amlodipine 5 Mg Tab PO Not Given BID [facility] Atorvastatin Calcium 10 mg 10/12/22 09:00 Atorvastatin 10 Mg Tab PO DAILY [facility] Atropine Sulfate 1 drops 10/11/22 21:00 10/11/22 20:28 Atropine Ophth Soln 1% 5ml Btl LEFT EYE Not Given BID [facility] Carbamazepine 100 mg 10/11/22 21:00 10/11/22 20:28 Carbamazepine Chew 100 Mg Chew PO Not Given BID [facility] Clonidine HCl 1 patch 10/11/22 15:15 10/11/22 19:10 Clonidine 0.2 Mg/24hr Patch TRANSDERM Not Given Q7D [facility]ELIX Dextrose/Water 25 ml 10/11/22 16:02 Dextrose 50% Syringe 50 Ml IVP PER PROTOCOL PRN Hypoglycemia Protocol Dextrose/Water 50 ml 10/11/22 16:02 Dextrose 50% Syringe 50 Ml IVP PER PROTOCOL PRN Hypoglycemia Protocol Hydromorphone HCl 0.5 mg 10/11/22 15:18 10/12/22 08:04 Hydromorphone 0.5 Mg/0.5 Ml Syringe IVP 0.5 mg Q3HR PRN Administration Moderate Pain (Scale 4 to 6) Potassium Chloride/Dextrose/Sod Cl 1,000 mls @ 50 mls/hr 10/12/22 02:44 10/12/22 04:15 D5%-1/2ns-Kcl 20 Meq/L Iv Solution IV 50 mls/hr .Q20H FELIX Administration Insulin Aspart 0 unit 10/12/22 02:00 10/12/22 05:39 Insulin Aspart (Novolog) 100 Unit/Ml Vial SQ Not Given [id number] [facility] Protocol Insulin Detemir 10 unit 10/12/22 01:15 10/12/22 01:39 Insulin Detemir (Levemir) 100 Unit/Ml Syr SQ 10 unit HS FELIX Administration Ipratropium [place] 0.5 mg 10/12/22 08:00 10/12/22 07:49 Ipratropium 0.5 Mg/2.5 Ml Nebu INHALATION Not Given RT-QID [facility] Lisinopril 30 mg 10/12/22 09:00 Lisinopril 10 Mg Tab PO DAILY [facility] Lurasidone HCl 40 mg 10/12/22 07:30 10/12/22 05:39 Lurasidone 40 Mg Tab PO Not Given W/BRKFST [facility]EL[facility] Lurasidone HCl 120 mg 10/11/22 17:30 10/11/22 19:10 Lurasidone 60 Mg Tab PO Not Given W/SUPPER [facility] Metoclopramide HCl 5 mg 10/11/22 15:05 Metoclopramide 5 Mg Tab PO AC-TID PRN GI Upset Metoprolol Tartrate 50 mg 10/11/22 21:00 10/12/22 08:05 Metoprolol Tartrate 50 Mg Tab PO 50 mg BID FELIX Administration Miscellaneous Information 1 each 10/11/22 16:02 Magnesium Replacement Protocol 1 Each [facility] [place]ISCE[place]ANE DAILY PRN Per Protocol Protocol Miscellaneous Information 1 each 10/11/22 16:02 Potassium Replacement Protocol 1 Each [facility] MISCELLANE DAILY PRN Per Protocol Montelukast Sodium 10 mg 10/11/22 21:00 10/11/22 20:29 Montelukast 10 Mg Tab PO Not Given HS [facility]EL[facility] Naloxone HCl 0.2 mg 10/11/22 15:18 Naloxone 0.4 Mg/Ml 1 Ml Vial IV Q2M PRN Opioid Reversal Ondansetron HCl 4 mg 10/11/22 21:23 10/11/22 21:32 Ondansetron 4 Mg/2 Ml Vial IVP 4 mg Q6HR PRN Administration Nausea And Vomiting Pantoprazole Sodium 40 mg 10/11/22 21:00 10/11/22 20:29 Pantoprazole 40 Mg Tablet PO 40 mg HS FELIX Administration Prednisolone Acetate 1 drops 10/11/22 21:00 10/11/22 20:29 Prednisolone Acetate 1% Ophth Drops 5 Ml Btl RIGHT EYE Not Given BID [facility] Quetiapine Fumarate 50 mg 10/11/22 21:00 10/12/22 08:06 Quetiapine 50 Mg Tab PO 50 mg BID FELIX Administration Quetiapine Fumarate 25 mg 10/11/22 19:00 10/11/22 20:28 Quetiapine 25 Mg Tab PO Not Given HS@1900 [facility] Trihexyphenidyl HCl 2 mg 10/12/22 09:00 Trihexyphenidyl 2 Mg Tab PO DAILY [facility] Trihexyphenidyl HCl 4 mg 10/11/22 21:00 10/11/22 20:29 Trihexyphenidyl 2 Mg Tab PO Not Given HS [facility] Intake and Output 10/11/22 10/12/22 10/12/22 22:59 06:59 14:59 Intake Total 28.530 10.391 Output Total 900 1000 600 Balance -871.470 -989.609 -600 Intake: Intake, IV Titration 28.530 10.391 Amount Insulin Regular 100 unit 28.530 10.391 In Sodium Chloride 0.9% 100 ml @ 0.1 UNITS/KG/HR 6.872 mls/hr IV .[id number] [facility] Rx#:[id number] Output: Urine 900 1000 600 Other: Voiding Method Urinal Urinal Urinal Weight 68.039 kg 10/12/22 07:19 10/12/22 07:19
[2022-10-12] MEDS: TRIHEXYPHENIDYL 2 MG TAB PO SCH ×2 (12:05→20:57)
[2022-10-12] MEDS: amLODIPine 5 MG TAB PO SCH ×2 (12:09→20:56)
--- NOTE | 2022-10-12 13:51 | P.CN ---
Psychiatric Consult - . Consult date: 10/12/22 Consult:: 10/12/22 12:57 IDENTIFYING DATA: This patient is a 37-year-old male, patient currently lives with his parents in a house, he collects Social Security disability. REASON FOR REFERRAL: Psychiatry was consulted for "paranoia" HISTORY OF PRESENT ILLNESS: The patient presented to the hospital by his parents as patient apparently has been starting to take his medications including his insulin and discontinued his insulin pump himself, he isn't refusing care according to nurses well. Patient has a [facility] patient and further collateral was given by Diego Banks from [facility] on patient's unwillingness to cooperate with treatment and neglecting his own care and believing that he is not diabetic anymore. Patient was seen today and agreeable to seek the telegraphic typewriter repairer. He is legally blind, has a history of type 1 diabetes for several years now. Patient came in to ER on 10/11 and apparently is complaining of lightheadedness, therapist and has been off his home for 5 days, his blood sugars were significantly elevated at 403 100 range. Patient had an HPI and was admitted for hyponatremia and hyperglycemia. Patient is agreeable to speak to telegraphic typewriter repairer today. He was loose in associations, illogical at times, he was describing irritability and mood swings. He believes that he does not need short acting insulin for his meals and only needs long-acting diabetic medications. He had very poor insight and judgment. He was bizarre at times during the interaction. He claims that he has her on diagnosis and states that he can't be "bipolar and schizophrenic" and also states that he was mainly poisoned by food and was dehydrated and does not need to be in the hospital. She was irrational at times very poor insight and judgment. He claims that there is "too much sugar in the insulin". He claims that he does have history of PTSD claims of poor sleep or appetite. At this time patient denies any current suicidal or homical ideations, intent or plan. Patient denies any auditory, visual hallucinations. She was fairly delusional about his diagnosis and his need for insulin and also endorsing paranoia towards others. Patients admits to using no recreational drugs or cigarettes PAST PSYCHIATRIC HISTORY: Patient has a a history of schizoaffective disorder. Patient is currently on Tegretol, Seroquel, Artane, latuda. She was last psychiatrically hospitalized about 8 years ago and mental health unit. Patient apparently follows up a [facility] or does not know his psychiatrist is. Patient denies any history of suicide attempts in the past. Past Medical History: Diabetes Mellitus Additional Past Medical History / Comment(s): bilateral glaucoma, Tachycardia, diabetic gastropariesis, diabetic neuropathy, migraine headaches, peptic ulcer disease, retinal detachment status post multiple surgeries History of Any Multi-Drug Resistant Organisms: None Reported Past Surgical History: Pacemaker Additional Past Surgical History / Comment(s): eye surgery, EGDs Past Anesthesia/Blood Transfusion Reactions: No Reported Reaction Past Psychological History: Anxiety, Bipolar, Depression Smoking Status: Current every day smoker Past Alcohol Use History: None Reported Past Drug Use History: Marijuana ALLERGIES: as per EMR. CHEMICAL DEPENDENCY HISTORY: as per HPI. FAMILY PSYCHIATRIC/SUBSTANCE USE HISTORY: denies SOCIAL HISTORY: Patient was born and raised in [place], states that he lives with his parents, and a house, he is currently disabled collecting SSD, single, claims that he completed high school. Denies any legal history. MENTAL STATUS EXAM: General Appearance: Patient appears to be thin, long hair, stated age is alert, bizarre, paranoid. Patient appears to have fair hygiene and grooming wearing hospital gown with poor eye contact. Behavior: Patient is calmly lying in bed without any agitated behavior. Paranoid and bizarre. Speech: Patient's speech is fluent and nonpressured. Mood/Affect: Patient reports their mood is "depressed", affect is congruent and constricted Suicidality/Homicidality: Patient denies having any suicidal or homicidal ideation intent or plan. Perceptions: Patient denies any visual hallucinations and denies any auditory hallucinations Though content/process: Delusional about his condition and need for help, loose associations, illogical. Bizarre. Memory and concentration: AOX3, grossly intact for the purposes of this session. Cannot spell "WORLD" backwards Judgment and insight: poor IMPRESSIONS: Schizoaffective disorder Type 1 diabetes with hyperglycemia PADMINI PLAN: -At this time patient DOES meet criteria for inpatient psychiatric admission. -Patient DOES NOT have decision making capacity at this time and is unable to reason through and communicate/appreciate the risks, benefits and alternatives to treatment. -Would recommend the following medication changes/additions: can continue with current psychiatric meds until patient is transferred to the U -Continue 1:1 sitter for safety -Cannot leave AMA at this time. Patient will need a petition and certification if attempting to leave AMA. -When medically stable, patient is eligible for transfer to a psych bed when available. Patient will need to be placed back on insulin and have his blood sugars improved along with overall medical condition before he can be transfrred to psych -Communicated plan to patient's nurse -Psychiatry will sign off at this time -Please contact with any questions. 10/12/22 13:36 10/12/22 13:37 10/12/22 13:46 10/12/22 13:47
[2022-10-12 16:29] LABS: Glucose,Whole Blood 373 mg/dL (70-110)
[2022-10-12] MEDS: QUEtiapine 25 MG TAB PO SCH (17:01)
[2022-10-12] MEDS: LURASIDONE 60 MG TAB PO SCH (17:02)
--- NOTE | 2022-10-12 20:24 | HP ---
HISTORY AND PHYSICAL A 37-year-old white male, sent by [facility] here as he took out his insulin pump and more psychosis, not listen to anybody or family about medicine compliance. He has delusions of being cured from diabetes. He had tachycardia. Consulted Cardiology and Psychiatry. I saw him in the emergency room on 10/11/2022. He believes he has food poisoning, generalized pain, noncompliant with any diabetes medicines. He is not taking his medicines at home for hypertension. He has sinus tachycardia in the 150s in the ER. White count 6.2, hemoglobin 12.3, BUN is 9, creatinine 0.85. HOME MEDICINES: 1. Lipitor 10 daily. 2. Metoprolol tartrate 50 b.i.d. 3. Lisinopril 30 daily. 4. Amlodipine 5 b.i.d. EKG shows ejection fraction 55% to 60%, with mild LVH. REVIEW OF SYSTEMS: Confusion, delusions, responds to nonsensical different questions with delusional statements. Otherwise, complains of weakness, fatigue, pricking sensation in his legs. PHYSICAL EXAMINATION: VITAL SIGNS: Reviewed. He is thin, cachectic. HEENT: He is normocephalic, atraumatic. LUNGS: Scattered rhonchi and wheeze. HEART: Tachycardic. ABDOMEN: Soft. EXTREMITIES: No edema. NEUROLOGIC: Alert and oriented x3. He has nausea, vomiting, acute kidney injury secondary to dehydration and hyperglycemia, sinus tachycardia, hypertension, medication noncompliance, schizophrenia, dyslipidemia. Cardiac medicines. Rehydrate. Psych consult. Started on his insulin to scale as he refused to put a pump in. Prognosis guarded. After his DKA protocol, we will do insulin to scale. MMODL / IJN: [id number] /
[2022-10-12 20:36] LABS: Glucose,Whole Blood 181 mg/dL (70-110)
[2022-10-12] MEDS: PANTOPRAZOLE 40 MG TABLET PO SCH (20:57)
[2022-10-12] MEDS: MONTELUKAST 10 MG TAB PO SCH (20:57)
[2022-10-12] MEDS: INSULIN DETEMIR (LEVEMIR) 100 UNIT/ML SYR SQ SCH (20:57)
[2022-10-13] MEDS: HYDROmorphone 0.5 MG/0.5 ML SYRINGE IVP PRN ×4 (01:17→22:32)
[2022-10-13] MEDS: INSULIN ASPART (NovoLOG) 100 UNIT/ML VIAL SQ SCH ×5 (02:42→22:32)
[2022-10-13 02:53] LABS: Glucose,Whole Blood 108 mg/dL (70-110)
[2022-10-13 05:59] LABS: Glucose,Whole Blood 106 mg/dL (70-110)
[2022-10-13] MEDS: IPRATROPIUM 0.5 MG/2.5 ML NEBU INHALATION SCH ×4 (08:56→21:24)
[2022-10-13] MEDS: amLODIPine 5 MG TAB PO SCH ×2 (09:09→22:20)
[2022-10-13] MEDS: TRIHEXYPHENIDYL 2 MG TAB PO SCH ×2 (09:09→22:24)
[2022-10-13] MEDS: QUEtiapine 50 MG TAB PO SCH ×2 (09:10→22:25)
[2022-10-13] MEDS: ATORVASTATIN 10 MG TAB PO SCH (09:10)
[2022-10-13] MEDS: lisinopriL 10 MG TAB PO SCH (09:10)
[2022-10-13] MEDS: METOPROLOL TARTRATE 50 MG TAB PO SCH ×2 (09:10→22:21)
[2022-10-13] MEDS: LURASIDONE 40 MG TAB PO SCH (09:11)
[2022-10-13] MEDS: ATROPINE OPHTH SOLN 1% 5ML BTL LEFT EYE SCH ×2 (09:11→22:14)
[2022-10-13] MEDS: prednisoLONE ACETATE 1% OPHTH DROPS 5 ML BTL RIGHT EYE SCH ×2 (09:11→22:23)
[2022-10-13 09:13] LABS: Basophils % (A) 0 %; Eosinophils # (A) 0.1 k/uL (0-0.7); Eosinophils % (A) 2 %; HGB 12.6 gm/dL (13.0-17.5); Lymphocytes # (A) 1.7 k/uL (1.0-4.8); Lymphocytes % (A) 28 %; MCH 29.4 pg (25.0-35.0); MCHC 32.4 g/dL (31.0-37.0); MCV 90.7 fL (80.0-100.0); Mean Platelet Volume 7.3; Monocytes # (A) 0.3 k/uL (0-1.0); Monocytes % (A) 5 %; Neutrophils # (A) 3.7 k/uL (1.3-7.7); Neutrophils % (A) 61 %; Platelet Count 307 k/uL (150-450); RBC 4.29 m/uL (4.30-5.90); RDW 12.7 % (11.5-15.5); WBC 6.1 k/uL (3.8-10.6)
[2022-10-13 09:20] LABS: ALT 27 U/L (4-49); AST 37 U/L (17-59); African American GFR (CKD) >90 (>60 ml/min/1.73 sqM); Albumin 3.7 g/dL (3.5-5.0); Alkaline Phosphatase 131 U/L (38-126); Anion Gap 4 mmol/L; Blood Urea Nitrogen 8 mg/dL (9-20); Calcium 9.2 mg/dL (8.4-10.2); Carbon Dioxide 28 mmol/L (22-30); Chloride 102 mmol/L (98-107); Glucose 111 mg/dL (74-99); Non-African American GFR(CKD) >90 (>60 ml/min/1.73 sqM); Potassium 4.2 mmol/L (3.5-5.1); Sodium 134 mmol/L (137-145); Total Bilirubin 0.4 mg/dL (0.2-1.3); Total Protein 6.2 g/dL (6.3-8.2)
[2022-10-13 11:54] LABS: Glucose,Whole Blood 345 mg/dL (70-110)
--- NOTE | 2022-10-13 12:07 | CDI ---
Documentation Clarification Form Date: 10/13/2022 12:06:21 PM From: Carmen Espinosa RN, CCDS Admit Date: 10/11/2022 03:18:00 PM Patient Name: Tani Slater Visit Number: [id number] Discharge Date: ATTENTION: The Clinical Documentation Specialists (CDI) and [facility] Coding Staff appreciate your assistance in clarifying documentation. Please respond to the clarification below the line at the bottom and electronically sign. The CDI & [facility] Coding staff will review the response and follow-up if needed. Please note: Queries are made part of the Legal Health Record. If you have any questions, please contact the author of this message via ITS. Dr. Wisam Vickers Your patient has glucose of 410, Lactic acid 2.1, Acetone, Qual Positive. Based on this information and the findings below, is there an additional diagnosis that is clinically appropriate for this patient? Patient history/risk factors: Diabetes Mellitus, Anxiety, Bipolar, Depression, Current every day smoker Clinical Indicators: 37-year-old male history of type 1 diabetes presents for evaluation of lightheadedness, increased thirst. Patient had apparently taken off his insulin pump 5 days ago stating that he was no longer a diabetic. He's had minimal insulin over the past 5 days. He also has not been eating and has had extensive vomiting. 10/11 VS: 111/70 157 22 98.6 98% RA 10/11 Labs: Na 126 BUN 21, Cr 1.34, Glucose 410, Lactic acid 2., VBG pH 7.46, Acetone, Qual Positive Treatment: Cardiac Monitoring/Telemetry Blood glucose monitoring ACHS 2AM .9NS 1,000 ML Bolus x2 10/11 then 130 ML/HR KDA Protocol (insulin drip) 10/11-10/12 Levemir 20 unit SQ hs 10/12 Is there an additional diagnosis that is clinically appropriate for this patient? [ ] Type 1 Diabetes Mellitus with Ketoacidosis without coma [ ] Type 1 Diabetes Mellitus with Hyperglycemia [ ] Unable to determine [ ] Other, please specify (Template Last Reviewed: March 2022) MTDD
[2022-10-13 16:40] LABS: Glucose,Whole Blood 408 mg/dL (70-110)
[2022-10-13] MEDS: LURASIDONE 60 MG TAB PO SCH (17:28)
[2022-10-13] MEDS: QUEtiapine 25 MG TAB PO SCH (17:28)
--- NOTE | 2022-10-13 20:04 | PN ---
PROGRESS NOTE SUBJECTIVE: Sugars have been 98 to 102. Temperature 98, blood pressure 120s to 130s over 80s to 90s, saturation 93% to 97% on room air. White count 6.1, hemoglobin 12.6. Sodium 134, potassium 4.2. Sugars are in the low 100s to 300s. Possibly get this patient over to the Psych Unit. Appears to be doing well. More alert and oriented x3. Giving appropriate answers. Back to his baseline. Labs and vital signs reviewed OBJECTIVE: CARDIOVASCULAR: S1 and S2. LUNGS: Clear. GI: Soft. HEMATOLOGY: Negative Homans. PSYCHIATRIC: Fair mood and affect. PLAN: We will probably send him over to the Psych Unit as he appears to be stable at this time. Prognosis is guarded. Cardiology signed off already with recommendations. Blood pressure is stable. MMODL / IJN: [id number] /
[2022-10-13 20:17] LABS: Glucose,Whole Blood 281 mg/dL (70-110)
[2022-10-13] MEDS: D5-0.45% NACL WITH KCL 20MEQ/L 1,000 ML IV SCH (22:14)
[2022-10-13 22:21] LABS: Glucose,Whole Blood 456 mg/dL (70-110)
[2022-10-13] MEDS: MONTELUKAST 10 MG TAB PO SCH (22:21)
[2022-10-13] MEDS: INSULIN DETEMIR (LEVEMIR) 100 UNIT/ML SYR SQ SCH (22:21)
[2022-10-13] MEDS: ONDANSETRON 4 MG/2 ML VIAL IVP PRN (22:21)
[2022-10-13] MEDS: PANTOPRAZOLE 40 MG TABLET PO SCH (22:23)
[2022-10-14 01:24] LABS: Glucose,Whole Blood 228 mg/dL (70-110)
[2022-10-14] MEDS: INSULIN ASPART (NovoLOG) 100 UNIT/ML VIAL SQ SCH ×8 (01:30→21:18)
[2022-10-14] MEDS: HYDROmorphone 0.5 MG/0.5 ML SYRINGE IVP PRN ×5 (02:26→20:20)
[2022-10-14 04:01] LABS: Glucose,Whole Blood 69 mg/dL (70-110)
[2022-10-14 04:16] LABS: Glucose,Whole Blood 66 mg/dL (70-110)
[2022-10-14 04:30] LABS: Glucose,Whole Blood 102 mg/dL (70-110)
[2022-10-14 06:13] LABS: Glucose,Whole Blood 123 mg/dL (70-110)
[2022-10-14] MEDS: prednisoLONE ACETATE 1% OPHTH DROPS 5 ML BTL RIGHT EYE SCH ×2 (07:47→21:18)
[2022-10-14] MEDS: ATROPINE OPHTH SOLN 1% 5ML BTL LEFT EYE SCH ×2 (07:47→21:19)
[2022-10-14] MEDS: lisinopriL 10 MG TAB PO SCH (08:02)
[2022-10-14] MEDS: METOPROLOL TARTRATE 50 MG TAB PO SCH ×2 (08:02→20:17)
[2022-10-14] MEDS: TRIHEXYPHENIDYL 2 MG TAB PO SCH ×2 (08:02→20:19)
[2022-10-14] MEDS: amLODIPine 5 MG TAB PO SCH ×2 (08:02→20:18)
[2022-10-14] MEDS: QUEtiapine 50 MG TAB PO SCH ×2 (08:02→20:18)
[2022-10-14] MEDS: LURASIDONE 40 MG TAB PO SCH (08:02)
[2022-10-14] MEDS: ATORVASTATIN 10 MG TAB PO SCH (08:02)
[2022-10-14] MEDS: IPRATROPIUM 0.5 MG/2.5 ML NEBU INHALATION SCH ×4 (09:09→19:34)
[2022-10-14 09:11] LABS: HCT 43.6 % (39.0-53.0); HGB 13.9 gm/dL (13.0-17.5); MCH 29.3 pg (25.0-35.0); MCV 91.6 fL (80.0-100.0); Platelet Count 342 k/uL (150-450); RBC 4.75 m/uL (4.30-5.90); RDW 12.5 % (11.5-15.5); WBC 8.4 k/uL (3.8-10.6)
[2022-10-14 09:39] LABS: African American GFR (CKD) >90 (>60 ml/min/1.73 sqM); Anion Gap 9 mmol/L; Blood Urea Nitrogen 14 mg/dL (9-20); Calcium 9.2 mg/dL (8.4-10.2); Carbon Dioxide 24 mmol/L (22-30); Chloride 102 mmol/L (98-107); Glucose 149 mg/dL (74-99); Non-African American GFR(CKD) >90 (>60 ml/min/1.73 sqM); Potassium 4.2 mmol/L (3.5-5.1); Sodium 135 mmol/L (137-145)
[2022-10-14 11:52] LABS: Glucose,Whole Blood 266 mg/dL (70-110)
--- NOTE | 2022-10-14 13:10 | PN ---
PROGRESS NOTE Type 1 diabetes with hyperglycemia. MMODL / IJN: [id number] /
--- NOTE | 2022-10-14 13:42 | PN ---
PROGRESS NOTE SUBJECTIVE: The patient is stable to go to the medical psychiatric chery with sugars in the 60s to 260s, much better from mental standpoint, possibly discharge or send him back to the psych chery. OBJECTIVE: VITAL SIGNS: He is saturating 94 on room air, blood pressure 122/83, temperature 98.3, respiratory rate 18. CARDIOVASCULAR: S1, S2. LUNGS: Clear. GI: Soft. PLAN: To send him either home or to the psych chery. He appears much more mentally stable at this point. His psychotic features appear to be abated somewhat. Wait for psych to reassess for going home and going to the psych chery. MMODL / IJN: [id number] /
[2022-10-14 16:33] LABS: Glucose,Whole Blood 174 mg/dL (70-110)
[2022-10-14] MEDS: LURASIDONE 60 MG TAB PO SCH (17:04)
[2022-10-14] MEDS: QUEtiapine 25 MG TAB PO SCH (17:04)
[2022-10-14] MEDS: PANTOPRAZOLE 40 MG TABLET PO SCH (20:17)
[2022-10-14] MEDS: MONTELUKAST 10 MG TAB PO SCH (20:17)
[2022-10-14] MEDS: ONDANSETRON 4 MG/2 ML VIAL IVP PRN (20:26)
[2022-10-14] MEDS: D5-0.45% NACL WITH KCL 20MEQ/L 1,000 ML IV SCH (20:28)
--- NOTE | 2022-10-14 20:40 | DS ---
DISCHARGE SUMMARY DISCHARGE DIAGNOSES: 1. Acute kidney injury. 2. Dehydration. 3. Noncompliance with medications. 4. Hyperglycemia. 5. Hyponatremia. 6. Type 1 diabetes mellitus with uncontrolled glucose. 7. Bipolar with psychotic features. 8. Irrational thoughts, delusions, schizoaffective disorder. DISCHARGE MEDICATIONS: 1. Levemir 20 units subcu daily. 2. NovoLog 3 units plus scale before breakfast and at bedtime. 3. Singulair 10 mg daily. 4. Lipitor 10 mg daily. 5. Tegretol 100 mg b.i.d. 6. Prilosec 20 mg daily. 7. Artane 4 mg at night. 8. Glucagon emergency kit 1 mg IM p.r.n. hypoglycemia. 9. DuoNeb updrafts q.i.d. 10.Latuda 40 mg at breakfast and 120 mg at night. 11.Prednisolone acetate ophthalmologic, Pred Forte 1 drop in right eye b.i.d. 12.Seroquel 25 at bedtime. 13.Artane 2 mg daily. 14.Maxalt 10 mg daily p.r.n. for migraines. 15.Spiriva Respimat 2.5 two puffs daily. 16.Catapres TTS patch every 7 days 0.2 mg for 24 hours. 17.Lopressor 50 b.i.d. 18.Norvasc 5 mg b.i.d. 19.Reglan 5 mg before breakfast t.i.d. for nausea. 20.Seroquel 50 mg b.i.d. on top of the 25 at night. 21.Zestril 30 mg daily. The patient has a longstanding history of schizoaffective. He sees multiple psychiatrists over the last few years. He had somebody adjust his medicine 2 months ago. He became more delusional, paranoid over the last couple of months to where it totally became a little bit more delusional and he pulled out his insulin pump care for diabetes, does not need diabetic medicines anymore. He is type 1 diabetic. I brought him in with acute kidney injury, dehydration, hyperglycemia with elevated blood glucose levels. Psychiatry saw petitioned in [facility] and the family is in agreement. I discussed with the and who are the guardians after he was stabilized with his blood sugar on long-acting insulin and Accu-Chek protocol. As this pump was removed and rehydrated, he became much more less delusional, but family still wanted him into the psych chery for adjustment to his medicines, for which we will send him at this time. He appears medically stable at this time as long as he stays on his medications as mentioned above. Diet will be consistent with calorie ADA diet. Medications as mentioned above. CONDITION: Stable. PROGNOSIS: Guarded. MMJACQUELINE / IJN: [id number] /
[2022-10-14 20:43] LABS: Glucose,Whole Blood 424 mg/dL (70-110)
[2022-10-14] MEDS: INSULIN DETEMIR (LEVEMIR) 100 UNIT/ML SYR SQ SCH (21:20)
[2022-10-15 02:40] LABS: Glucose,Whole Blood 105 mg/dL (70-110)
[2022-10-15] MEDS: INSULIN ASPART (NovoLOG) 100 UNIT/ML VIAL SQ SCH ×8 (02:47→21:24)
[2022-10-15] MEDS: HYDROmorphone 0.5 MG/0.5 ML SYRINGE IVP PRN ×7 (02:53→23:22)
[2022-10-15] MEDS: ONDANSETRON 4 MG/2 ML VIAL IVP PRN (02:53)
[2022-10-15 05:57] LABS: Glucose,Whole Blood 78 mg/dL (70-110)
[2022-10-15 06:18] LABS: Glucose,Whole Blood 120 mg/dL (70-110)
[2022-10-15] MEDS: LURASIDONE 40 MG TAB PO SCH (08:54)
[2022-10-15] MEDS: amLODIPine 5 MG TAB PO SCH ×2 (08:54→21:33)
[2022-10-15] MEDS: IPRATROPIUM 0.5 MG/2.5 ML NEBU INHALATION SCH ×4 (08:54→19:22)
[2022-10-15] MEDS: QUEtiapine 50 MG TAB PO SCH ×2 (08:54→21:24)
[2022-10-15] MEDS: ATORVASTATIN 10 MG TAB PO SCH (08:54)
[2022-10-15] MEDS: lisinopriL 10 MG TAB PO SCH (08:54)
[2022-10-15] MEDS: METOPROLOL TARTRATE 50 MG TAB PO SCH ×2 (08:54→21:24)
[2022-10-15] MEDS: TRIHEXYPHENIDYL 2 MG TAB PO SCH ×2 (08:55→21:24)
[2022-10-15] MEDS: prednisoLONE ACETATE 1% OPHTH DROPS 5 ML BTL RIGHT EYE SCH ×2 (09:05→21:23)
[2022-10-15] MEDS: ATROPINE OPHTH SOLN 1% 5ML BTL LEFT EYE SCH ×2 (09:05→21:23)
[2022-10-15] MEDS: D5-0.45% NACL WITH KCL 20MEQ/L 1,000 ML IV SCH (11:05)
[2022-10-15 11:41] LABS: Glucose,Whole Blood 266 mg/dL (70-110)
[2022-10-15] MEDS ORDERED: diazePAM 5 MG TAB PO PRN (15:44)
[2022-10-15 16:28] LABS: Glucose,Whole Blood 388 mg/dL (70-110)
[2022-10-15] MEDS: LURASIDONE 60 MG TAB PO SCH (16:41)
[2022-10-15] MEDS: QUEtiapine 25 MG TAB PO SCH (18:52)
[2022-10-15 20:22] LABS: Glucose,Whole Blood 444 mg/dL (70-110)
[2022-10-15] MEDS: INSULIN DETEMIR (LEVEMIR) 100 UNIT/ML SYR SQ SCH (21:23)
[2022-10-15] MEDS: MONTELUKAST 10 MG TAB PO SCH (21:24)
[2022-10-15] MEDS: PANTOPRAZOLE 40 MG TABLET PO SCH (21:24)
[2022-10-16 00:37] LABS: Glucose,Whole Blood 146 mg/dL (70-110)
[2022-10-16 02:23] LABS: Glucose,Whole Blood 103 mg/dL (70-110)
[2022-10-16] MEDS: INSULIN ASPART (NovoLOG) 100 UNIT/ML VIAL SQ SCH ×8 (02:41→20:33)
[2022-10-16] MEDS: D5-0.45% NACL WITH KCL 20MEQ/L 1,000 ML IV SCH (02:42)
--- NOTE | 2022-10-16 03:19 | PN ---
PROGRESS NOTE The patient is waiting for psych transfer. OBJECTIVE: VITAL SIGNS: Pulse is in the low 100s, temp 97.3, blood pressure 110 to 130s over 70s. Sat 96 on room air. CARDIOVASCULAR: S1, S2. LUNGS: Clear. GI: Soft. Hematology: Negative Homans. ASSESSMENT: Insulin-dependent diabetes mellitus, noncompliant with medications; psychosis, schizoaffective; history of GERD; COPD; asthma. Prognosis guarded. Please see further orders. He is transferred to psych floor. MMODL / IJN: [id number] /
[2022-10-16 06:05] LABS: Glucose,Whole Blood 172 mg/dL (70-110)
[2022-10-16] MEDS: LURASIDONE 40 MG TAB PO SCH (06:26)
[2022-10-16] MEDS: IPRATROPIUM 0.5 MG/2.5 ML NEBU INHALATION SCH ×4 (07:41→20:56)
[2022-10-16] MEDS: lisinopriL 10 MG TAB PO SCH (09:05)
[2022-10-16] MEDS: METOPROLOL TARTRATE 50 MG TAB PO SCH ×2 (09:05→20:30)
[2022-10-16] MEDS: amLODIPine 5 MG TAB PO SCH ×2 (09:05→20:30)
[2022-10-16] MEDS: QUEtiapine 50 MG TAB PO SCH ×2 (09:05→20:30)
[2022-10-16] MEDS: ATORVASTATIN 10 MG TAB PO SCH (09:05)
[2022-10-16] MEDS: TRIHEXYPHENIDYL 2 MG TAB PO SCH ×2 (09:06→20:50)
[2022-10-16] MEDS: ATROPINE OPHTH SOLN 1% 5ML BTL LEFT EYE SCH ×2 (09:07→20:37)
[2022-10-16] MEDS: prednisoLONE ACETATE 1% OPHTH DROPS 5 ML BTL RIGHT EYE SCH ×2 (09:07→20:38)
[2022-10-16] MEDS: HYDROmorphone 0.5 MG/0.5 ML SYRINGE IVP PRN ×3 (09:14→20:30)
[2022-10-16 11:33] LABS: Glucose,Whole Blood 282 mg/dL (70-110)
--- NOTE | 2022-10-16 14:51 | P.PN ---
Progress Note - Text Progress Note Date: 10/16/22 Interval History: Patient was seen today for psychiatric follow-up regarding patient's schizoaff ective disorder. Patient was seen laying down in the bed today. He had a bunch of hair that appeared to be pulled out and was by his arm. Patient states that he is doing "about the same" and denies any overnight complaints. Claims that he is sleeping on and off throughout the night. He continues to state that he has depression and is having "mood swings" and also endorsing paranoia about others. He states that he believes there is possibly "microphones in this room" and was rambling. He has faierly poor insight and judgment and beleives that he does not have a mental illness and does not need medications/treatment. At this time patient denies any suicidal or homical ideations, intent or plan. Patient denies any side effects from the medications and has been compliant with meds. Mental Status Exam: General Appearance: Patient appears to be thin, long hair, stated age is alert, bizarre, paranoid. Patient appears to have fair hygiene and grooming wearing hospital gown with improving eye contact. Behavior: Patient is calmly lying in bed without any agitated behavior. Paranoid and bizarre. Speech: Patient's speech is fluent and nonpressured. R[place] Mood/Affect: Patient reports their mood is "depressed and having mood swings", affect is congruent and constricted Suicidality/Homicidality: Patient denies having any suicidal or homicidal ideation intent or plan. Perceptions: Patient denies any visual hallucinations and denies any auditory hallucinations Though content/process: Delusional about his condition and need for help, loose associations, illogical. Bizarre at times. Memory and concentration: AOX3, grossly intact for the purposes of this session. Cannot spell "WORLD" backwards Judgment and insight: poor chronically. IMPRESSIONS: Schizoaffective disorder Type 1 diabetes legally blind PADMINI PLAN: -At this time patient DOES meet criteria for inpatient psychiatric admission. -Patient DOES NOT have decision making capacity at this time and is unable to reason through and communicate/appreciate the risks, benefits and alternatives to treatment. -Would recommend the following medication changes/additions: can continue with current psychiatric meds until patient is transferred to the MHU -Continue 1:1 sitter for safety until patient is safely transferred to the mental health unit. -Cannot leave AMA at this time. Patient will need a petition and certification if attempting to leave AMA. -When medically stable, patient is eligible for transfer to a psych bed when available. -Communicated plan to patient's nurse and major case detective -Psychiatry will sign off at this time -Please contact with any questions.
[2022-10-16 16:21] LABS: Glucose,Whole Blood 290 mg/dL (70-110)
[2022-10-16] MEDS: QUEtiapine 25 MG TAB PO SCH (16:38)
[2022-10-16] MEDS: LURASIDONE 60 MG TAB PO SCH (16:38)
[2022-10-16 20:16] LABS: Glucose,Whole Blood 514 mg/dL (70-110)
[2022-10-16 20:16] LABS: Glucose,Whole Blood 467 mg/dL (70-110)
[2022-10-16 20:22] LABS: Glucose,Whole Blood 479 mg/dL (70-110)
[2022-10-16] MEDS: PANTOPRAZOLE 40 MG TABLET PO SCH (20:30)
[2022-10-16] MEDS: MONTELUKAST 10 MG TAB PO SCH (20:30)
[2022-10-16] MEDS: INSULIN DETEMIR (LEVEMIR) 100 UNIT/ML SYR SQ SCH (20:32)
[2022-10-17] MEDS: INSULIN ASPART (NovoLOG) 100 UNIT/ML VIAL SQ SCH ×8 (02:11→20:38)
[2022-10-17 02:12] LABS: Glucose,Whole Blood 141 mg/dL (70-110)
[2022-10-17] MEDS: D5-0.45% NACL WITH KCL 20MEQ/L 1,000 ML IV SCH (02:14)
[2022-10-17] MEDS: HYDROmorphone 0.5 MG/0.5 ML SYRINGE IVP PRN ×5 (02:41→20:39)
[2022-10-17 06:02] LABS: Glucose,Whole Blood 120 mg/dL (70-110)
--- NOTE | 2022-10-17 06:02 | PN ---
PROGRESS NOTE SUBJECTIVE: Supposed to go to the psych chery, but there are staffing issues over there, so he is still on the floor. He is having minimal abdominal pain now. OBJECTIVE: VITAL SIGNS: Pulse is 90s to low 100s, temp 98.5, pulse 198 to 120s over 70s to 60s, O2 96 on room air, and pulse 76. CARDIOVASCULAR: S1, S2. LUNGS: Clear. GI: Soft. Sugars going up at nighttime up to 500s, 200s to 100s during the day. Prognosis is guarded, need some psych chery work, possibly increase his insulin again his sugars so we can no low blood sugars today, so prognosis is guarded. Insulin-dependent diabetes mellitus, psychosis, schizoaffective. Prognosis guarded. Increase his insulin. Prognosis is guarded. MMODL / IJN: [id number] /
[2022-10-17] MEDS: LURASIDONE 40 MG TAB PO SCH (07:32)
[2022-10-17] MEDS: QUEtiapine 50 MG TAB PO SCH ×2 (08:06→20:36)
[2022-10-17] MEDS: ATORVASTATIN 10 MG TAB PO SCH (08:06)
[2022-10-17] MEDS: amLODIPine 5 MG TAB PO SCH ×2 (08:06→20:36)
[2022-10-17] MEDS: lisinopriL 10 MG TAB PO SCH (08:06)
[2022-10-17] MEDS: METOPROLOL TARTRATE 50 MG TAB PO SCH ×2 (08:06→20:36)
[2022-10-17] MEDS: TRIHEXYPHENIDYL 2 MG TAB PO SCH ×2 (08:07→20:43)
[2022-10-17] MEDS: ATROPINE OPHTH SOLN 1% 5ML BTL LEFT EYE SCH ×2 (08:08→20:44)
[2022-10-17] MEDS: prednisoLONE ACETATE 1% OPHTH DROPS 5 ML BTL RIGHT EYE SCH ×2 (08:08→20:44)
[2022-10-17 08:14] VITALS: RESP 16
[2022-10-17] MEDS: IPRATROPIUM 0.5 MG/2.5 ML NEBU INHALATION SCH ×4 (09:13→21:43)
[2022-10-17 11:49] LABS: Glucose,Whole Blood 227 mg/dL (70-110)
[2022-10-17] MEDS: LURASIDONE 60 MG TAB PO SCH (16:19)
[2022-10-17] MEDS: QUEtiapine 25 MG TAB PO SCH (16:19)
[2022-10-17 16:20] LABS: Glucose,Whole Blood 162 mg/dL (70-110)
[2022-10-17 20:14] LABS: Glucose,Whole Blood 410 mg/dL (70-110)
[2022-10-17 20:18] VITALS: BP 132/78; PULSE 103; TEMP 98
[2022-10-17] MEDS: PANTOPRAZOLE 40 MG TABLET PO SCH (20:36)
[2022-10-17] MEDS: MONTELUKAST 10 MG TAB PO SCH (20:36)
[2022-10-17] MEDS ORDERED: INSULIN DETEMIR (LEVEMIR) 100 UNIT/ML SYR SQ SCH (21:00)
--- NOTE | 2022-10-18 01:09 | PN ---
PROGRESS NOTE SUBJECTIVE: A 37-year-old white male, who has gastroparesis, insulin-dependent diabetes mellitus, psychosis, schizoaffective, hypertension acceleration, is doing better. He has been held down the floor due to unable to get a bed in the psych chery. Now there is a bed, we are going to switch system again. OBJECTIVE: VITAL SIGNS: Blood pressure is 125/82, O2 of 97%, pulse 104, respiratory rate 16 to 18. CARDIOVASCULAR: S1, S2. LUNGS: Clear. GI: Soft. ASSESSMENT: Psychosis, schizoaffective, insulin-dependent diabetes mellitus, GERD, obstructive sleep apnea, COPD. Continue current treatments. Discharge orders. Psych orders. See orders. Continue on his insulin as mentioned. Insulin doses changed. a couple of days ago. He is on his long-acting insulin. His 30 units of Levemir is down to 20. PROGNOSIS: Guarded. Please see further orders. MMASHWINL / IJN: [id number] /
[2022-10-18] MEDS ORDERED: INSULIN DETEMIR (LEVEMIR) 100 UNIT/ML SYR SQ SCH (21:00)
== END 2022-10-17 22:07 | DRG 638 ==
LOC: EC 11:33 → 3SCARD 15:18
PROVIDERS: ADMIT Family Medicine; ATTEND Family Medicine
DX: E10.65 Type 1 diabetes mellitus with hyperglycemia (principal); E87.1 Hypo-osmolality and hyponatremia; N17.9 Acute kidney failure, unspecified; Z96.41 Presence of insulin pump (external) (internal); Z79.4 Long term (current) use of insulin; Z28.311 Partially vaccinated for COVID-19; Z20.822 Contact with and (suspected) exposure to COVID-19; F25.8 Other schizoaffective disorders; E10.43 Type 1 diabetes mellitus with diabetic autonomic (poly)neuropathy; E86.0 Dehydration; K31.84 Gastroparesis; F41.9 Anxiety disorder, unspecified; H54.8 Legal blindness, as defined in USA; H40.9 Unspecified glaucoma; R00.0 Tachycardia, unspecified; T38.3X6A Underdosing of insulin and oral hypoglycemic [antidiabetic] drugs, initial encounter; G43.909 Migraine, unspecified, not intractable, without status migrainosus; E10.319 Type 1 diabetes mellitus with unspecified diabetic retinopathy without macular edema; Z88.0 Allergy status to penicillin; Z91.040 Latex allergy status; Z88.8 Allergy status to other drugs, medicaments and biological substances; Z87.11 Personal history of peptic ulcer disease
CPT/HCPCS: 36415; 80048; 80051; 80053; 81003; 82009; 82565; 82803; 82947; 83605; 83735; 84100; 84443; 84520; 85025; 85027; 87635; 93005; 96360; 96361; 99285

== ENCOUNTER 2022-10-17 12:21 | Inpatient (IN) | payer MEDICARE, MEDICAID ==
[2022-10-17] MEDS ORDERED: IPRATROPIUM-ALBUTEROL 3 ML NEB INHALATION PRN (12:56)
[2022-10-17] MEDS ORDERED: HALOPERIDOL LACTATE 5 MG/ML 1 ML VIAL IM PRN (13:01)
[2022-10-17] MEDS ORDERED: MAGNESIUM HYDROXIDE 2,400 MG/30 ML CUP PO PRN (13:01)
[2022-10-17] MEDS ORDERED: LORazepam 2 MG/ML INJ IM PRN (13:01)
[2022-10-17] MEDS ORDERED: LURASIDONE 60 MG TAB PO SCH (17:30)
[2022-10-17] MEDS ORDERED: QUEtiapine 25 MG TAB PO SCH (21:00)
[2022-10-17] MEDS ORDERED: TRIHEXYPHENIDYL 2 MG TAB PO SCH (21:00)
[2022-10-17] MEDS: INSULIN ASPART (NovoLOG) 100 UNIT/ML VIAL SQ SCH ×3 (22:59→23:01)
[2022-10-17] MEDS: MONTELUKAST 10 MG TAB PO SCH (23:00)
[2022-10-17] MEDS: INSULIN DETEMIR (LEVEMIR) 100 UNIT/ML SYR SQ SCH (23:00)
[2022-10-17] MEDS: amLODIPine 5 MG TAB PO SCH (23:00)
[2022-10-17] MEDS: METOPROLOL TARTRATE 50 MG TAB PO SCH (23:00)
[2022-10-17] MEDS: PANTOPRAZOLE 40 MG TABLET PO SCH (23:00)
[2022-10-17] MEDS: ATROPINE OPHTH SOLN 1% 5ML BTL LEFT EYE SCH (23:00)
[2022-10-17] MEDS: prednisoLONE ACETATE 1% OPHTH DROPS 5 ML BTL RIGHT EYE SCH (23:01)
[2022-10-18 02:16] LABS: Glucose,Whole Blood 48 mg/dL (70-110)
[2022-10-18] MEDS: INSULIN ASPART (NovoLOG) 100 UNIT/ML VIAL SQ SCH ×8 (02:34→20:59)
[2022-10-18] MEDS: ACETAMINOPHEN TAB 325 MG TAB PO PRN ×2 (02:41→21:19)
[2022-10-18] MEDS: IBUPROFEN 600 MG TAB PO PRN ×2 (02:41→18:31)
[2022-10-18 02:57] LABS: Glucose,Whole Blood 125 mg/dL (70-110)
[2022-10-18] MEDS ORDERED: LURASIDONE 40 MG TAB PO SCH (07:30)
[2022-10-18 08:15] LABS: Glucose,Whole Blood 72 mg/dL (70-110)
[2022-10-18] MEDS: METOPROLOL TARTRATE 50 MG TAB PO SCH ×2 (08:56→20:52)
[2022-10-18] MEDS: ATORVASTATIN 10 MG TAB PO SCH (08:56)
[2022-10-18] MEDS: amLODIPine 5 MG TAB PO SCH ×2 (08:56→20:52)
[2022-10-18] MEDS: lisinopriL 10 MG TAB PO SCH (08:56)
[2022-10-18] MEDS: LORazepam 1 MG TAB PO PRN ×2 (08:57→18:30)
[2022-10-18] MEDS: cloNIDine 0.2 MG/24HR PATCH TRANSDERM SCH ×2 (08:59→09:29)
[2022-10-18] MEDS: NICOTINE 14MG/24HR PATCH TRANSDERM SCH (09:00)
[2022-10-18] MEDS ORDERED: TRIHEXYPHENIDYL 2 MG TAB PO SCH (09:00)
[2022-10-18] MEDS: prednisoLONE ACETATE 1% OPHTH DROPS 5 ML BTL RIGHT EYE SCH ×2 (09:29→20:54)
[2022-10-18] MEDS: ATROPINE OPHTH SOLN 1% 5ML BTL LEFT EYE SCH ×2 (09:29→20:54)
[2022-10-18 11:51] VITALS: BMI 18.6
[2022-10-18 12:57] LABS: Glucose,Whole Blood 338 mg/dL (70-110)
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
[2022-10-18] MEDS: TRIHEXYPHENIDYL 2 MG TAB PO SCH (16:46)
[2022-10-18 17:38] LABS: Glucose,Whole Blood 442 mg/dL (70-110)
[2022-10-18] MEDS: INSULIN ASPART (NovoLOG) 100 UNIT/ML VIAL SQ PRN (18:52)
[2022-10-18] MEDS: MAG HYDROX/AL HYDROX/SIMETH 30 ML CUP PO PRN (19:56)
[2022-10-18 20:00] LABS: Glucose,Whole Blood 269 mg/dL (70-110)
[2022-10-18] MEDS: PALIPERIDONE 3 MG TAB.ER.24 PO SCH (20:52)
[2022-10-18] MEDS: PANTOPRAZOLE 40 MG TABLET PO SCH (20:52)
[2022-10-18] MEDS: MONTELUKAST 10 MG TAB PO SCH (20:53)
[2022-10-18] MEDS: INSULIN DETEMIR (LEVEMIR) 100 UNIT/ML SYR SQ SCH (20:54)
[2022-10-18 23:13] LABS: Glucose,Whole Blood 153 mg/dL (70-110)
[2022-10-18] MEDS ORDERED: METOCLOPRAMIDE 10 MG TAB PO SCH (23:45)
[2022-10-18] MEDS ORDERED: ONDANSETRON ODT 4 MG TAB PO PRN (23:53)
[2022-10-19] MEDS: INSULIN ASPART (NovoLOG) 100 UNIT/ML VIAL SQ SCH ×8 (01:24→20:10)
--- NOTE | 2022-10-19 01:31 | CONS ---
CONSULTATION HISTORY OF PRESENT ILLNESS: The patient is seen for psychosis, and schizoaffective. Prognosis is guarded. nausea, vomiting, and hematemesis tonight and given Zofran, Reglan, , Protonix, Carafate. If continues to have vomiting, have to go back to the floor. He has a history of severe gastroparesis. He has a gastric pump. He pulled out his insulin pump. He is now on Accu-Chek protocol before meals and at bedtime. He was stable when he left the hospital over the psych chery for the last 3 or 4 days. PHYSICAL EXAMINATION: VITAL SIGNS: Reviewed. CARDIOVASCULAR: S1, S2. GI: Soft. HEMATOLOGY: Negative Homans. NEUROLOGIC: Cranial nerves intact. ASSESSMENT: Type 1 diabetes mellitus, gastroparesis, uncontrolled diabetes mellitus, psychosis or schizoaffective, acute kidney injury, nicotine addiction. Prognosis guarded. Please see orders as mentioned above. MMODL / IJN: [id number] /
[2022-10-19 02:07] LABS: Glucose,Whole Blood 138 mg/dL (70-110)
[2022-10-19] MEDS: METOCLOPRAMIDE 10 MG TAB PO SCH ×5 (02:10→21:01)
[2022-10-19] MEDS: PANTOPRAZOLE 40 MG TABLET PO SCH ×3 (02:10→18:10)
[2022-10-19] MEDS: SUCRALFATE 1 GM TAB PO SCH ×3 (02:10→20:41)
[2022-10-19 06:31] LABS: Glucose,Whole Blood 124 mg/dL (70-110)
[2022-10-19 06:32] LABS: Basophils % (A) 0 %; Eosinophils # (A) 0.1 k/uL (0-0.7); Eosinophils % (A) 1 %; HCT 36.7 % (39.0-53.0); HGB 12.3 gm/dL (13.0-17.5); Lymphocytes # (A) 2.8 k/uL (1.0-4.8); Lymphocytes % (A) 31 %; MCH 30.1 pg (25.0-35.0); MCHC 33.5 g/dL (31.0-37.0); MCV 89.9 fL (80.0-100.0); Mean Platelet Volume 7.1; Monocytes # (A) 0.5 k/uL (0-1.0); Monocytes % (A) 6 %; Neutrophils # (A) 5.3 k/uL (1.3-7.7); Neutrophils % (A) 59 %; Platelet Count 303 k/uL (150-450); RBC 4.09 m/uL (4.30-5.90); RDW 12.5 % (11.5-15.5)
[2022-10-19 08:16] LABS: Glucose,Whole Blood 78 mg/dL (70-110)
[2022-10-19] MEDS: LORazepam 1 MG TAB PO PRN ×2 (08:29→16:50)
[2022-10-19] MEDS: IBUPROFEN 600 MG TAB PO PRN ×2 (08:29→18:13)
[2022-10-19] MEDS: ATORVASTATIN 10 MG TAB PO SCH (08:31)
[2022-10-19] MEDS: lisinopriL 10 MG TAB PO SCH (08:31)
[2022-10-19] MEDS: METOPROLOL TARTRATE 50 MG TAB PO SCH ×2 (08:31→20:41)
[2022-10-19] MEDS: amLODIPine 5 MG TAB PO SCH ×2 (08:31→20:41)
[2022-10-19] MEDS: TRIHEXYPHENIDYL 2 MG TAB PO SCH ×2 (08:32→18:10)
[2022-10-19] MEDS: prednisoLONE ACETATE 1% OPHTH DROPS 5 ML BTL RIGHT EYE SCH ×2 (08:33→20:55)
[2022-10-19] MEDS: ATROPINE OPHTH SOLN 1% 5ML BTL LEFT EYE SCH ×2 (08:33→20:55)
[2022-10-19] MEDS: NICOTINE 14MG/24HR PATCH TRANSDERM SCH (09:20)
[2022-10-19 12:45] LABS: Glucose,Whole Blood 97 mg/dL (70-110)
--- NOTE | 2022-10-19 14:33 | P.PN ---
Progress Note - Text Progress Note Date: 10/19/22 Interval history: Patient was seen today in his room and was agreeable to speak to property underwriter. He a ppears to be mildly lethargic today. He states that he was vomiting last night and nurse reported that he was coffee-ground emesis. Patient states that he is still having paranoid ideations, less focused on delusions today. He appeared to be mildly more appropriate however fairly lethargic and difficult to focus. He hasn't mainly laying in his bed today. Claims that he slept poorly last night. He was agreeable with medication increased. He was more on topic and logical today. At this time is denying any auditory or visual hallucinations, denying any suicidal or homicidal ideations intent or plan. Mental status examination: General Appearance: Patient appears to be thin, long hair, stated age is alert, bizarre, paranoid less. Patient appears to have fair hygiene and grooming [facility] gown with poor eye contact. Behavior: Patient is calmly lying in bed without any agitated behavior. Paranoid and bizarre, less today Speech: Patient's speech is fluent and nonpressured. [place] Mood/Affect: Patient reports their mood is "not good", affect is congruent and constricted Suicidality/Homicidality: Patient denies having any suicidal or homicidal ideation intent or plan. Perceptions: Patient denies any visual hallucinations and denies any auditory hallucinations Though content/process: Delusional about his condition and need for help, loose associations, illogical. less Bizarre. Memory and concentration: AOX3, grossly intact for the purposes of this session Judgment and insight: Chronically poor IMPRESSIONS: Schizoaffective disorder Type 1 diabetes with hyperglycemia PADMINI Nicotine dependence PLAN: -Patient is admitted under involuntary status to MHU for stabilization of psychiatric symptoms and safety. Patient has not signed adult voluntary form and and is placed in patient's chart. A second certification was completed and along with petition will be filed for court. -Medications : continue Invega 3 mg qhs for psychosis. continue with artane and will consider decreasing tegretol -Nurse communicating with Dr Huff about recs for patients hematemesis. -Ativan and Haldol PRN for agitation/aggression -NRT - nicotine dependence -SW on board for discharge planning. Encourage patient to participate in groups to work on coping skills. Will await deferral and court date.
[2022-10-19 17:46] LABS: Glucose,Whole Blood 269 mg/dL (70-110)
[2022-10-19 19:43] LABS: Glucose,Whole Blood 236 mg/dL (70-110)
[2022-10-19] MEDS: INSULIN DETEMIR (LEVEMIR) 100 UNIT/ML SYR SQ SCH (20:10)
[2022-10-19] MEDS: PALIPERIDONE 3 MG TAB.ER.24 PO SCH (20:41)
[2022-10-19] MEDS: MONTELUKAST 10 MG TAB PO SCH (20:41)
[2022-10-19] MEDS: MELATONIN 5 MG TABLET PO SCH (21:18)
[2022-10-20 01:45] LABS: Glucose,Whole Blood 68 mg/dL (70-110)
[2022-10-20 02:04] LABS: Glucose,Whole Blood 113 mg/dL (70-110)
[2022-10-20] MEDS: INSULIN ASPART (NovoLOG) 100 UNIT/ML VIAL SQ SCH ×7 (02:04→20:28)
[2022-10-20] MEDS: LORazepam 1 MG TAB PO PRN ×4 (02:05→22:09)
[2022-10-20 06:12] LABS: Glucose,Whole Blood 49 mg/dL (70-110)
[2022-10-20 06:34] LABS: Glucose,Whole Blood 160 mg/dL (70-110)
[2022-10-20 08:08] LABS: Basophils % (A) 0 %; Eosinophils # (A) 0.1 k/uL (0-0.7); Eosinophils % (A) 1 %; HCT 34.3 % (39.0-53.0); HGB 11.7 gm/dL (13.0-17.5); Lymphocytes # (A) 1.5 k/uL (1.0-4.8); Lymphocytes % (A) 27 %; MCH 30.4 pg (25.0-35.0); MCHC 34.2 g/dL (31.0-37.0); MCV 88.9 fL (80.0-100.0); Mean Platelet Volume 7.6; Monocytes # (A) 0.4 k/uL (0-1.0); Monocytes % (A) 8 %; Neutrophils # (A) 3.4 k/uL (1.3-7.7); Neutrophils % (A) 61 %; Platelet Count 310 k/uL (150-450); RBC 3.86 m/uL (4.30-5.90); RDW 12.5 % (11.5-15.5); WBC 5.6 k/uL (3.8-10.6)
[2022-10-20 08:11] LABS: Glucose,Whole Blood 219 mg/dL (70-110)
[2022-10-20 08:18] LABS: ALT 28 U/L (4-49); AST 33 U/L (17-59); African American GFR (CKD) >90 (>60 ml/min/1.73 sqM); Albumin 3.3 g/dL (3.5-5.0); Alkaline Phosphatase 124 U/L (38-126); Anion Gap 3 mmol/L; Blood Urea Nitrogen 15 mg/dL (9-20); Calcium 8.7 mg/dL (8.4-10.2); Carbon Dioxide 25 mmol/L (22-30); Chloride 104 mmol/L (98-107); Glucose 121 mg/dL (74-99); Non-African American GFR(CKD) >90 (>60 ml/min/1.73 sqM); Potassium 3.9 mmol/L (3.5-5.1); Sodium 132 mmol/L (137-145); Total Bilirubin 0.2 mg/dL (0.2-1.3); Total Protein 5.6 g/dL (6.3-8.2)
[2022-10-20] MEDS: ATROPINE OPHTH SOLN 1% 5ML BTL LEFT EYE SCH ×2 (08:22→20:52)
[2022-10-20] MEDS: lisinopriL 10 MG TAB PO SCH (08:22)
[2022-10-20] MEDS: METOCLOPRAMIDE 10 MG TAB PO SCH ×5 (08:22→20:41)
[2022-10-20] MEDS: METOPROLOL TARTRATE 50 MG TAB PO SCH ×2 (08:22→20:41)
[2022-10-20] MEDS: SUCRALFATE 1 GM TAB PO SCH ×2 (08:22→20:40)
[2022-10-20] MEDS: TRIHEXYPHENIDYL 2 MG TAB PO SCH ×2 (08:23→17:56)
[2022-10-20] MEDS: amLODIPine 5 MG TAB PO SCH ×2 (08:23→20:41)
[2022-10-20] MEDS: PANTOPRAZOLE 40 MG TABLET PO SCH ×2 (08:23→17:56)
[2022-10-20] MEDS: ATORVASTATIN 10 MG TAB PO SCH (08:23)
[2022-10-20] MEDS: prednisoLONE ACETATE 1% OPHTH DROPS 5 ML BTL RIGHT EYE SCH ×2 (08:24→20:53)
[2022-10-20] MEDS: NICOTINE 14MG/24HR PATCH TRANSDERM SCH (08:24)
[2022-10-20] MEDS: IBUPROFEN 600 MG TAB PO PRN ×2 (08:29→17:58)
--- NOTE | 2022-10-20 11:15 | P.PN ---
Progress Note - Text Progress Note Date: 10/20/22 Interval history: Patient was seen today in his room and was agreeable to speak to food writer. Shannon ent appears to be less lethargic today. She apparently had a drop in his blood sugars yesterday once again. He has been taking his medications, not reporting any side effects. States that he is feeling tired at this time. We spoke about adjusting his medications that she was okay with. He appears to be somewhat concrete and less delusional today. He did ask a bizarre question about people possibly harming him on the unit. Claims that he last vomited yesterday. He is feeling a bit better today. Patient states that he is still having paranoid ideations, less focused on them today. he was more on topic and logical today. At this time is denying any auditory or visual hallucinations, denying any suicidal or homicidal ideations intent or plan. Mental status examination: General Appearance: Patient appears to be thin, long hair, stated age is alert, less bizarre, paranoid less. Patient appears to have fair hygiene and grooming wearing hospital gown with poor eye contact. Behavior: Patient is calmly lying in bed without any agitated behavior. Paranoid and bizarre, less today Speech: Patient's speech is fluent and nonpressured. [place] Mood/Affect: Patient reports their mood is "ok", affect is congruent and constricted Suicidality/Homicidality: Patient denies having any suicidal or homicidal ideation intent or plan. Perceptions: Patient denies any visual hallucinations and denies any auditory hallucinations Though content/process: more appropriate. concrete. logical. less Bizarre. Memory and concentration: AOX3, grossly intact for the purposes of this session Judgment and insight: Chronically poor, improving mildly IMPRESSIONS: Schizoaffective disorder Type 1 diabetes with hyperglycemia PADMINI Nicotine dependence PLAN: -Patient is admitted under involuntary status to MHU for stabilization of psychiatric symptoms and safety. Patient has not signed adult voluntary form and and is placed in patient's chart. -Medications : switch to risperdal PO 2 mg qhs + 0.5 mg daily for psychosis. continue to titrate up slowly as needed over the weekend. will likely give Perseris SQ LUGO on sunday if patient is tolerating medication well. continue with artane, will decrease tegretol today to 100 mg qhs for mood stabilization, consider adding a different mood stabilizer if indicated/needed -Ativan and Haldol PRN for agitation/aggression -NRT - nicotine dependence -SW on board for discharge planning. Encourage patient to participate in groups to work on coping skills. Will await deferral and court date. likely discharge next sunday once patient receives LUGO
[2022-10-20 12:56] LABS: Glucose,Whole Blood 139 mg/dL (70-110)
[2022-10-20] MEDS: ACETAMINOPHEN TAB 325 MG TAB PO PRN (13:12)
[2022-10-20 13:29] LABS: Basophils % (A) 0 %; Eosinophils # (A) 0.1 k/uL (0-0.7); Eosinophils % (A) 1 %; HCT 38.8 % (39.0-53.0); HGB 12.8 gm/dL (13.0-17.5); Lymphocytes # (A) 2.1 k/uL (1.0-4.8); Lymphocytes % (A) 28 %; MCH 29.6 pg (25.0-35.0); MCHC 32.9 g/dL (31.0-37.0); MCV 90.1 fL (80.0-100.0); Mean Platelet Volume 7.1; Monocytes # (A) 0.4 k/uL (0-1.0); Monocytes % (A) 5 %; Neutrophils # (A) 4.9 k/uL (1.3-7.7); Neutrophils % (A) 64 %; Platelet Count 350 k/uL (150-450); RBC 4.31 m/uL (4.30-5.90); RDW 12.4 % (11.5-15.5); WBC 7.6 k/uL (3.8-10.6)
[2022-10-20 17:45] LABS: Glucose,Whole Blood 394 mg/dL (70-110)
[2022-10-20 19:50] LABS: Glucose,Whole Blood 574 mg/dL (70-110)
[2022-10-20 19:50] LABS: Glucose,Whole Blood 558 mg/dL (70-110)
[2022-10-20] MEDS: INSULIN ASPART (NovoLOG) 100 UNIT/ML VIAL SQ PRN (20:27)
[2022-10-20] MEDS: MONTELUKAST 10 MG TAB PO SCH (20:41)
[2022-10-20] MEDS: MELATONIN 5 MG TABLET PO SCH (20:41)
[2022-10-20] MEDS: risperiDONE 2 MG TAB PO SCH (20:41)
[2022-10-20] MEDS: INSULIN DETEMIR (LEVEMIR) 100 UNIT/ML SYR SQ SCH (20:52)
--- NOTE | 2022-10-20 23:06 | PN ---
PROGRESS NOTE SUBJECTIVE: This is a 37-year-old white male is who continues to have progressive coffee-grounds emesis. We are going to get a GI consult and surgical consult. Hemoglobin still at 11.7 to 12.8 now, is not dropping. He is on proton pump inhibitors. He has been recently scoped. He has history of PEs esophagitis. Sugars are mid 100s to 200s. Continue to monitor him during psychiatric care and this is adjusted pending how much food he has been eating, whether he is going to have high or low blood sugars. Currently, he is on room air, sat 98, blood pressure 110-111 over 70, temp 97.5, pulse 75 to 81. Continues on anti-nausea medicine, PPIs, hypertension medications which are working with breathing treatments for his breathing. Psychiatric medicine per psychiatrist. We will get a surgery or GI consult whoever can come see him. Start Requip for restless legs. He is also on Carafate. PROGNOSIS: Guarded. Please see further orders. MMODL / IJN: [id number] /
[2022-10-20 23:21] LABS: Glucose,Whole Blood 246 mg/dL (70-110)
[2022-10-21 02:17] LABS: Glucose,Whole Blood 157 mg/dL (70-110)
[2022-10-21] MEDS: INSULIN ASPART (NovoLOG) 100 UNIT/ML VIAL SQ SCH ×5 (05:43→20:21)
[2022-10-21 07:53] LABS: Glucose,Whole Blood 64 mg/dL (70-110)
[2022-10-21 08:04] LABS: Glucose,Whole Blood 63 mg/dL (70-110)
--- NOTE | 2022-10-21 08:16 | P.PN ---
Subjective Progress Note Date: 10/21/22 Principal diagnosis: LAIIMPRESSIONS: Schizoaffective disorder Type 1 diabetes with hyperglycemia PADMINI Nicotine dependence Interval history: Patient was seen today in his room and was agreeable to speak to web content writer. He is unable to see so he asked his he could be interviewed in his room. . He has been taking his medications, not reporting any side effects. States that he is feeling tired at this time. He appears to be somewhat concrete . He did ask a bizarre question about people possibly harming him on the unit. he is still having paranoid ideations, less focused on today. At this time is denying any auditory or visual hallucinations, denying any suicidal or homicidal ideations intent or plan. Of course he denies practically everything except that every health professional and the plan is in every hospital on the plan has deliberately tried to sabotage him. He says doctors have squirted june iron into his veins to ruin his eyes on purpose. That he "pissed off" someone at his doctor's office so they began to fake his A1c's to make him look bad. He went on for quite a while in a litany of such accusations and then tried to make sense of it all by saying God wants him to be blind so that he can check out how the health system treats people with handicaps. A lot of his preoccupation is with monitoring devices for his diabetes and how they have been deliberately tampered with. One of the problems is that he claims that he is ALLERGIC to Abilify, Risperdal, Seroquel at any dose over 100, I asked him what he meant by being ALLERGIC to Risperdal he said it makes his thinking foggy. Mental status examination: General Appearance: Patient appears to be thin, long hair, stated age is alert, less bizarre, paranoid less. Patient appears to have fair hygiene and grooming wearing hospital gown with poor eye contact. Behavior: Patient is calmly lying in bed without any agitated behavior. Paranoid and bizarre. Speech: Patient's speech is fluent and nonpressured. [place] Mood/Affect: Patient reports their mood is "ok", affect is a little hard to read because it is primarily constricted Suicidality/Homicidality: Patient denies having any suicidal or homicidal ideation intent or plan. Perceptions: Patient denies any visual hallucinations and denies any auditory hallucinations Though content/process: more appropriate. concrete. logical. less Bizarre. Memory and concentration: AOX3, grossly intact for the purposes of this session Judgment and insight: Chronically poor, improving mildly IMPRESSIONS: Schizoaffective disorder Type 1 diabetes with hyperglycemia PADMINI Nicotine dependence PLAN: Is clear that he needs dopamine to chapito of some sort to help him I think he would get even more foggy on Zyprexa and we'll pry complain of anything he was given. He does not seem to be having a reaction to the risperidone at this point so I think we should continue at this low dose for now. -Patient is admitted under involuntary status to MHU for stabilization of psychiatric symptoms and safety. Patient has not signed adult voluntary form and and is placed in patient's chart. -Medications : switch to risperdal PO 2 mg qhs + 0.5 mg daily for psychosis. continue to titrate up slowly as needed over the weekend. will likely give Perseris SQ LUGO on sunday if patient is tolerating medication well. continue with artane, will decrease tegretol today to 100 mg qhs for mood stabilization, consider adding a different mood stabilizer if indicated/needed -Ativan and Haldol PRN for agitation/aggression -NRT - nicotine dependence - on board for discharge planning. Encourage patient to participate in groups to work on coping skills. Will await deferral and court date. likely discharge next sunday once patient receives LUGO Objective - Vital Signs Vital signs: Vital Signs Temp 97.5 F L 10/20/22 06:46 Pulse 75 10/20/22 08:46 Resp 16 10/20/22 06:46 BP 110/71 10/20/22 08:46 Pulse Ox 98 10/18/22 07:04 FiO2 Intake & Output 10/20/22 10/21/22 10/21/22 18:59 06:59 18:59 Weight 62.3 kg - Labs CBC & Chem 7: 10/20/22 13:14 10/20/22 07:46 Labs: Abnormal Lab Results - Last 24 Hours (Table) 10/20/22 10/20/22 10/20/22 Range/Units 07:46 07:46 08:05 RBC 3.86 L (4.30-5.90) m/uL Hgb 11.7 L (13.0-17.5) gm/dL Hct 34.3 L (39.0-53.0) % Sodium 132 L (137-145) mmol/L Glucose 121 H (74-99) mg/dL POC Glucose (mg/dL) 219 H (70-110) mg/dL Total Protein 5.6 L (6.3-8.2) g/dL Albumin 3.3 L (3.5-5.0) g/dL 10/20/22 10/20/22 10/20/22 Range/Units 12:54 13:14 17:43 RBC (4.30-5.90) m/uL Hgb 12.8 L (13.0-17.5) gm/dL Hct 38.8 L (39.0-53.0) % Sodium (137-145) mmol/L Glucose (74-99) mg/dL POC Glucose (mg/dL) 139 H 394 H (70-110) mg/dL Total Protein (6.3-8.2) g/dL Albumin (3.5-5.0) g/dL 10/20/22 10/20/22 10/20/22 Range/Units 19:44 19:48 23:19 RBC (4.30-5.90) m/uL Hgb (13.0-17.5) gm/dL Hct (39.0-53.0) % Sodium (137-145) mmol/L Glucose (74-99) mg/dL POC Glucose (mg/dL) 574 H 558 H 246 H (70-110) mg/dL Total Protein (6.3-8.2) g/dL Albumin (3.5-5.0) g/dL 10/21/22 Range/Units 02:16 RBC (4.30-5.90) m/uL Hgb (13.0-17.5) gm/dL Hct (39.0-53.0) % Sodium (137-145) mmol/L Glucose (74-99) mg/dL POC Glucose (mg/dL) 157 H (70-110) mg/dL Total Protein (6.3-8.2) g/dL Albumin (3.5-5.0) g/dL
[2022-10-21 08:27] LABS: Glucose,Whole Blood 106 mg/dL (70-110)
[2022-10-21] MEDS: IBUPROFEN 600 MG TAB PO PRN (08:28)
[2022-10-21] MEDS: METOPROLOL TARTRATE 50 MG TAB PO SCH ×2 (08:28→20:37)
[2022-10-21] MEDS: PANTOPRAZOLE 40 MG TABLET PO SCH ×2 (08:28→17:52)
[2022-10-21] MEDS: TRIHEXYPHENIDYL 2 MG TAB PO SCH ×2 (08:28→17:52)
[2022-10-21] MEDS: risperiDONE 0.5 MG TAB PO SCH (08:28)
[2022-10-21] MEDS: lisinopriL 10 MG TAB PO SCH (08:28)
[2022-10-21] MEDS: amLODIPine 5 MG TAB PO SCH ×2 (08:28→20:38)
[2022-10-21] MEDS: ATORVASTATIN 10 MG TAB PO SCH (08:28)
[2022-10-21] MEDS: SUCRALFATE 1 GM TAB PO SCH ×2 (08:28→20:37)
[2022-10-21] MEDS: METOCLOPRAMIDE 10 MG TAB PO SCH ×4 (08:28→20:38)
[2022-10-21] MEDS: prednisoLONE ACETATE 1% OPHTH DROPS 5 ML BTL RIGHT EYE SCH ×2 (08:29→20:42)
[2022-10-21] MEDS: ATROPINE OPHTH SOLN 1% 5ML BTL LEFT EYE SCH ×2 (08:29→20:42)
[2022-10-21] MEDS: NICOTINE 14MG/24HR PATCH TRANSDERM SCH (08:35)
[2022-10-21 12:49] LABS: Glucose,Whole Blood 225 mg/dL (70-110)
[2022-10-21] MEDS: LORazepam 1 MG TAB PO PRN (16:26)
[2022-10-21 17:48] LABS: Glucose,Whole Blood 296 mg/dL (70-110)
[2022-10-21 19:41] LABS: Glucose,Whole Blood 458 mg/dL (70-110)
[2022-10-21] MEDS: ACETAMINOPHEN TAB 325 MG TAB PO PRN (19:49)
[2022-10-21] MEDS: INSULIN DETEMIR (LEVEMIR) 100 UNIT/ML SYR SQ SCH (20:18)
[2022-10-21] MEDS: risperiDONE 2 MG TAB PO SCH (20:38)
[2022-10-21] MEDS: MONTELUKAST 10 MG TAB PO SCH (20:38)
[2022-10-21] MEDS: MELATONIN 5 MG TABLET PO SCH (20:38)
[2022-10-22] MEDS: LORazepam 1 MG TAB PO PRN ×3 (00:20→18:23)
[2022-10-22 00:55] LABS: Glucose,Whole Blood 171 mg/dL (70-110)
[2022-10-22] MEDS: INSULIN ASPART (NovoLOG) 100 UNIT/ML VIAL SQ SCH ×6 (04:10→21:13)
[2022-10-22 07:56] LABS: Glucose,Whole Blood 60 mg/dL (70-110)
[2022-10-22] MEDS: NICOTINE 14MG/24HR PATCH TRANSDERM SCH (08:11)
[2022-10-22 08:12] LABS: Glucose,Whole Blood 107 mg/dL (70-110)
[2022-10-22] MEDS: prednisoLONE ACETATE 1% OPHTH DROPS 5 ML BTL RIGHT EYE SCH ×2 (08:12→20:44)
[2022-10-22] MEDS: risperiDONE 0.5 MG TAB PO SCH (08:12)
[2022-10-22] MEDS: METOCLOPRAMIDE 10 MG TAB PO SCH ×4 (08:12→20:46)
[2022-10-22] MEDS: TRIHEXYPHENIDYL 2 MG TAB PO SCH ×2 (08:12→17:51)
[2022-10-22] MEDS: METOPROLOL TARTRATE 50 MG TAB PO SCH ×2 (08:12→21:11)
[2022-10-22] MEDS: amLODIPine 5 MG TAB PO SCH ×2 (08:12→20:46)
[2022-10-22] MEDS: SUCRALFATE 1 GM TAB PO SCH ×2 (08:12→20:46)
[2022-10-22] MEDS: ATORVASTATIN 10 MG TAB PO SCH (08:12)
[2022-10-22] MEDS: lisinopriL 10 MG TAB PO SCH (08:12)
[2022-10-22] MEDS: PANTOPRAZOLE 40 MG TABLET PO SCH ×2 (08:12→17:51)
[2022-10-22] MEDS: ATROPINE OPHTH SOLN 1% 5ML BTL LEFT EYE SCH ×2 (08:13→20:44)
--- NOTE | 2022-10-22 09:26 | P.GSCN ---
History of Present Illness Consult date: 10/22/22 Reason for Consult: Coffee-ground emesis History of present illness: The 37-year-old male who is admitted to the psychiatric unit for psychoses. Patient states she's had some mild epigastric pain. States he has history of ulcers. Patient did have an episode of coffee-ground emesis. Patient denies a significant abdominal pain today. He states his neck is hurting him more. He states he was rigid diagnosed with ulcers while he was at [facility]. Past Medical History Past Medical History: Diabetes Mellitus Additional Past Medical History / Comment(s): bilateral glaucoma, Tachycardia, diabetic gastropariesis, diabetic neuropathy, migraine headaches, peptic ulcer disease, retinal detachment status post multiple surgeries History of Any Multi-Drug Resistant Organisms: None Reported Past Surgical History: Pacemaker Additional Past Surgical History / Comment(s): eye surgery, EGDs Past Anesthesia/Blood Transfusion Reactions: No Reported Reaction Type of Cardiac Device: Unknown Device Placement Date:: 2016 Past Psychological History: Anxiety, Bipolar, Depression Smoking Status: Current every day smoker Past Alcohol Use History: None Reported Additional Past Alcohol Use History / Comment(s): Patient is a smoker one pack per day for an unknown number of years. He denies any medical marijuana, marijuana, street drug or alcohol use. He does live at home with his parents. He is single and does not have any children. Past Drug Use History: Marijuana - Past Family History Father Additional Family Medical History / Comment(s): Patient does not know his father's age nor his health problems. Mother Additional Family Medical History / Comment(s): Patient does not know his mother's age but states she has fibromyalgia. Sister(s) Additional Family Medical History / Comment(s): Patient has 1 sister with no major medical problems. Medications and Allergies Home Medications Medication Instructions Recorded Confirmed Type Atorvastatin [Lipitor] 10 mg PO DAILY 01/08/22 10/17/22 History Atropine Sulfate [Atropine Sulfate 1 drop LEFT EYE BID 01/08/22 10/17/22 History 1%] Lurasidone HCl [Latuda] 120 mg PO W/SUPPER 01/08/22 10/17/22 History Lurasidone [Latuda] 40 mg PO W/BRKFST 01/08/22 10/17/22 History Montelukast [Singulair] 10 mg PO HS 01/08/22 10/17/22 History prednisoLONE ACETATE 1% OPHTH 1 drop RIGHT EYE BID 01/08/22 10/17/22 History [Pred Forte 1%] QUEtiapine FUMARATE [SEROquel] 25 mg PO HS@1900 04/08/22 10/17/22 History Trihexyphenidyl [Artane] 2 mg PO DAILY 04/08/22 10/17/22 History carBAMazepine CHEW [TEGretol Chew] 100 mg PO BID 04/08/22 10/17/22 History Glucagon Emergency Kit 1 mg IM ONCE PRN 09/03/22 10/17/22 History Omeprazole [PriLOSEC] 20 mg PO HS 09/03/22 10/17/22 History Rizatriptan Benzoate [Maxalt] 10 mg PO DAILY PRN 09/03/22 10/17/22 History Tiotropium 2.5 Mcg/Puff [Spiriva 2 puff INHALATION RT-DAILY 09/03/22 10/17/22 History Respimat 2.5 Mcg] Trihexyphenidyl [Artane] 4 mg PO HS 09/03/22 10/17/22 History Ipratropium-Albuterol Nebulize 3 ml INHALATION RT-QID PRN 30 Days 09/20/22 10/17/22 Rx [Duoneb 0.5 mg-3 mg/3 ml Soln] #120 each Metoclopramide [Reglan] 5 mg PO AC-TID PRN 90 Days #90 tab 09/20/22 10/17/22 Rx Metoprolol Tartrate [Lopressor] 50 mg PO BID 30 Days #60 tab 09/20/22 10/17/22 Rx QUEtiapine [SEROquel] 50 mg PO BID tab 09/20/22 10/17/22 Rx amLODIPine [Norvasc] 5 mg PO BID 30 Days #60 tab 09/20/22 10/17/22 Rx cloNIDine 0.2 MG/24HR PATCH 1 patch TRANSDERM Q7D 4 Days #4 09/20/22 10/17/22 Rx [Catapres-TTS] patch lisinopriL [Zestril] 30 mg PO DAILY 30 Days #30 tab 09/20/22 10/17/22 Rx INSULIN ASPART (NovoLOG) [NovoLOG 0 unit SQ [id number] each 10/14/22 10/17/22 Rx (formulary)] INSULIN ASPART (NovoLOG) [NovoLOG 3 unit SQ AC-TID each 10/14/22 10/17/22 Rx (formulary)] Insulin Detemir (Levemir) [Levemir] 30 unit SQ HS each 10/17/22 10/17/22 Rx Allergies Allergy/AdvReac Type Severity Reaction Status Date / Time adhesive tape Allergy Rash/Hives Verified 10/11/22 15:11 cefazolin Allergy Rash/Hives Verified 10/11/22 15:11 latex Allergy Rash/Hives Verified 10/11/22 15:11 amoxicillin [From Augmentin] AdvReac Nausea & Verified 10/11/22 15:11 Vomiting & Diarrhea clavulanic acid AdvReac Nausea & Verified 10/11/22 15:11 [From Augmentin] Vomiting & Diarrhea duloxetine [From Cymbalta] AdvReac Hallucinati Verified 10/11/22 15:11 ons pregabalin [From Lyrica] AdvReac Hallucinati Verified 10/11/22 15:11 ons Surgical - Exam Vital Signs Temp Pulse Resp Pulse Ox 97.5 F L 133 H 16 98 10/17/22 22:55 10/17/22 22:55 10/17/22 22:55 10/17/22 22:55 - General well developed, well nourished, no distress - Eyes PERRL - ENT normal pinna - Neck no masses - Respiratory normal expansion - Cardiovascular Rhythm: regular - Abdomen Abdomen: soft, non tender Results - Labs 10/20/22 13:14 10/20/22 07:46 Abnormal Lab Results - Last 24 Hours (Table) 10/21/22 10/21/22 10/21/22 Range/Units 12:48 17:46 19:40 POC Glucose (mg/dL) 225 H 296 H 458 H (70-110) mg/dL 10/22/22 10/22/22 Range/Units 00:51 07:54 POC Glucose (mg/dL) 171 H 60 L (70-110) mg/dL Assessment and Plan Assessment: History of peptic ulcer disease. History of coffee-ground emesis. Patient appears stable. Patient will undergo EGD when stable from a psychiatric standpoint.
--- NOTE | 2022-10-22 10:07 | P.PN ---
Subjective Progress Note Date: 10/22/22 Principal diagnosis: LAIIMPRESSIONS: Schizoaffective disorder Type 1 diabetes with hyperglycemia PADMINI Nicotine dependence Interval history: Patient was seen today in his room and was agreeable to speak to blurb writer. He seems to be less tired at this time for a little trouble sleeping at continue struggle with anxiety. He appears to be somewhat concrete . He was less preo ccupied with delusional fixation today. One of the problems is that he claims that he is ALLERGIC to Abilify, Risperdal, Seroquel at any dose over 100, I asked him what he meant by being ALLERGIC to Risperdal he said it makes his thinking foggy. He complains of some abdominal pain he was seen by a surgeon did not feel there was acute danger at this time. Mental status examination: General Appearance: Patient appears to be thin, long hair, stated age is alert, less bizarre, paranoid less. Patient appears to have fair hygiene and grooming wearing hospital gown with poor eye contact. Behavior: Patient is calmly lying in bed without any agitated behavior. Paranoid and bizarre. Speech: Patient's speech is fluent and nonpressured. [place] Mood/Affect: Patient reports their mood is "ok", affect is a little hard to read because it is primarily constricted Suicidality/Homicidality: Patient denies having any suicidal or homicidal ideation intent or plan. Perceptions: Patient denies any visual hallucinations and denies any auditory hallucinations Though content/process: more appropriate. concrete. logical. less Bizarre. Memory and concentration: AOX3, grossly intact for the purposes of this session Judgment and insight: Chronically poor, improving mildly IMPRESSIONS: Schizoaffective disorder Type 1 diabetes with hyperglycemia PADMINI Nicotine dependence PLAN: Going to add in some Seroquel but he was unable to sign for because he can't read is taking before for admitted to with understanding of its benefits and side effects. Is clear that he needs dopamine to chapito of some sort to help him I think he would get even more foggy on Zyprexa and we'll pry complain of anything he was given. He does not seem to be having a reaction to the risperidone at this point so I think we should continue at this low dose for now. He is asking for and would be willing to take an additional 100 of Seroquel at night. He says that that has helped in the past with moods and sleep and anxiety during the day. But at higher doses do no good and cause side effects. Since he is going to give us difficulty on any medications due to constant complaining of side effects I think is just fine to take low dose of risperidone in low dose of Seroquel which have complementary benefit and h opefully reasonable side effects. Course he also says he was on 2 mg twice a day of Valium at home was wondering if he could have increased benzos he has when necessary Ativan which is actually at 1 mg a higher dose and the 2 mg of Valium were. -Patient is admitted under involuntary status to MHU for stabilization of psychiatric symptoms and safety. Patient has not signed adult voluntary form and and is placed in patient's chart. -Medications : switch to risperdal PO 2 mg qhs + 0.5 mg daily for psychosis. continue to titrate up slowly as needed over the weekend. will likely give Perseris SQ LUGO on sunday if patient is tolerating medication well. continue with artane, will decrease tegretol today to 100 mg qhs for mood stabilization, consider adding a different mood stabilizer if indicated/needed -Ativan and Haldol PRN for agitation/aggression -NRT - nicotine dependence - on board for discharge planning. Encourage patient to participate in groups to work on coping skills. Will await deferral and court date. likely discharge next sunday once patient receives LUGO Objective - Vital Signs Vital signs: Vital Signs Temp 97.8 F 10/21/22 21:12 Pulse 105 H 10/22/22 06:58 Resp 16 10/22/22 06:58 BP 109/57 10/22/22 06:58 Pulse Ox 99 10/22/22 06:58 FiO2 - Labs CBC & Chem 7: 10/20/22 13:14 10/20/22 07:46 Labs: Abnormal Lab Results - Last 24 Hours (Table) 10/21/22 10/21/22 10/21/22 Range/Units 12:48 17:46 19:40 POC Glucose (mg/dL) 225 H 296 H 458 H (70-110) mg/dL 10/22/22 10/22/22 Range/Units 00:51 07:54 POC Glucose (mg/dL) 171 H 60 L (70-110) mg/dL
[2022-10-22] MEDS: MAG HYDROX/AL HYDROX/SIMETH 30 ML CUP PO PRN (10:40)
[2022-10-22 12:33] LABS: Glucose,Whole Blood 253 mg/dL (70-110)
[2022-10-22 17:36] LABS: Glucose,Whole Blood 488 mg/dL (70-110)
[2022-10-22] MEDS ORDERED: INSULIN ASPART (NovoLOG) 100 UNIT/ML VIAL SQ ONE (18:09)
[2022-10-22] MEDS: INSULIN ASPART (NovoLOG) 100 UNIT/ML VIAL SQ PRN ×3 (18:15→21:09)
[2022-10-22] MEDS: IBUPROFEN 600 MG TAB PO PRN (18:23)
[2022-10-22 19:53] LABS: Glucose,Whole Blood 375 mg/dL (70-110)
[2022-10-22] MEDS: risperiDONE 2 MG TAB PO SCH (20:45)
[2022-10-22] MEDS: INSULIN DETEMIR (LEVEMIR) 100 UNIT/ML SYR SQ SCH (20:46)
[2022-10-22] MEDS: MONTELUKAST 10 MG TAB PO SCH (20:46)
[2022-10-22] MEDS: MELATONIN 5 MG TABLET PO SCH (21:10)
[2022-10-22] MEDS: QUEtiapine 100 MG TAB PO SCH (21:11)
[2022-10-22 21:37] LABS: Glucose,Whole Blood 290 mg/dL (70-110)
[2022-10-22] MEDS: haloperidoL 5 MG TAB PO PRN (21:43)
--- NOTE | 2022-10-22 22:01 | PN ---
PROGRESS NOTE DATE OF SERVICE: 10/21/2022 Tani Slater had some hemoptysis. Hemoglobin is stable though. Surgical consult was pending. Otherwise, his sugars are ranging fairly good 200s to 300s depending on his low blood sugar when he does not need to cut back on insulin depending on how his eating is. ASSESSMENT: Insulin-dependent diabetes mellitus, hemoptysis, history of esophageal candidiasis, history of gastroesophageal reflux disease, history of schizoaffective psychosis. Continue current treatment. Prognosis guarded. Monitor sugars. Surgical consult for hemoptysis. MMODL / IJN: [id number] /
[2022-10-23 01:57] LABS: Glucose,Whole Blood 89 mg/dL (70-110)
[2022-10-23] MEDS: INSULIN ASPART (NovoLOG) 100 UNIT/ML VIAL SQ SCH ×5 (02:42→22:40)
[2022-10-23 06:45] VITALS: PULSE 96; RESP 16; TEMP 98.3
[2022-10-23 08:22] LABS: Glucose,Whole Blood 77 mg/dL (70-110)
[2022-10-23] MEDS: NICOTINE 14MG/24HR PATCH TRANSDERM SCH (08:47)
[2022-10-23] MEDS: prednisoLONE ACETATE 1% OPHTH DROPS 5 ML BTL RIGHT EYE SCH ×2 (08:47→22:34)
[2022-10-23] MEDS: ATROPINE OPHTH SOLN 1% 5ML BTL LEFT EYE SCH ×2 (08:47→22:32)
[2022-10-23] MEDS: IBUPROFEN 600 MG TAB PO PRN ×2 (08:49→21:00)
[2022-10-23] MEDS: SUCRALFATE 1 GM TAB PO SCH ×2 (08:49→20:53)
[2022-10-23] MEDS: lisinopriL 10 MG TAB PO SCH (08:49)
[2022-10-23] MEDS: METOPROLOL TARTRATE 50 MG TAB PO SCH ×2 (08:50→20:52)
[2022-10-23] MEDS: METOCLOPRAMIDE 10 MG TAB PO SCH ×4 (08:50→22:38)
[2022-10-23] MEDS: amLODIPine 5 MG TAB PO SCH ×2 (08:50→20:52)
[2022-10-23] MEDS: risperiDONE 0.5 MG TAB PO SCH (08:51)
[2022-10-23] MEDS: LORazepam 1 MG TAB PO PRN ×2 (08:52→20:55)
[2022-10-23] MEDS: PANTOPRAZOLE 40 MG TABLET PO SCH ×2 (09:18→17:16)
[2022-10-23] MEDS: ATORVASTATIN 10 MG TAB PO SCH (09:18)
[2022-10-23] MEDS: TRIHEXYPHENIDYL 2 MG TAB PO SCH ×2 (09:18→17:16)
--- NOTE | 2022-10-23 11:08 | P.PN ---
Progress Note - Text Progress Note Date: 10/23/22 Interval history: Patient was seen today in his room and was agreeable to speak to staff writer. Shannon ent was laying in bed, he states that he is doing a bit better today. He states that he did have some anxiety during the day yesterday we spoke about different options to help manage. He states he is feeling more optimistic about his condition. He was more logical and goal oriented today. More directable during conversation. He claims that he did speak with his father over the weekend. He was asking about potential discharge. He is not endorsing any delusions today, denying any paranoia. Claims that after he took a blood pressure medications he was "hallucinating" however states that that was very transient and now he is doing "better". In that he has not been vomiting. States that his appetite is improving. At this time is denying any auditory or visual hallucinations, denying any suicidal or homicidal ideations intent or plan. Mental status examination: General Appearance: Patient appears to be thin, long hair, stated age is alert, more directable and cooperative. Patient appears to have fair hygiene and grooming wearing hospital gown with poor eye contact. Behavior: Patient is calmly lying in bed without any agitated behavior. not Paranoid or bizarre Speech: Patient's speech is fluent and nonpressured. [place] Mood/Affect: Patient reports their mood is "ok", affect is congruent and constricted, improving mildly Suicidality/Homicidality: Patient denies having any suicidal or homicidal ideation intent or plan. Perceptions: Patient denies any visual hallucinations and denies any auditory hallucinations Though content/process: more appropriate. concrete. logical Memory and concentration: AOX3, grossly intact for the purposes of this session Judgment and insight: Chronically poor, improving mildly IMPRESSIONS: Schizoaffective disorder Type 1 diabetes Nicotine dependence PLAN: -Patient is admitted under involuntary status to MHU for stabilization of psychiatric symptoms and safety. Patient has not signed adult voluntary form and and is placed in patient's chart. -Medications : decrease risperdal PO 1 mg qhs + 0.5 mg daily for psychosis. ordered Perseris SQ 90 LUGO today to ensure compliance. continue with artane. d/c tegretol. melatonin 10 mg qhs for sleep. seroquel continue at 100 mg qhs for insomnia/mood stabilization. -Ativan and Haldol PRN for agitation/aggression -NRT - nicotine dependence -SW on board for discharge planning. Encourage patient to participate in groups to work on coping skills. patient deferred. likely discharge tomorrow back home.
[2022-10-23] MEDS ORDERED: risperiDONE 120 MG SYR (NO COST) PHARMACY STOCK SQ ONE (11:30)
[2022-10-23] MEDS ORDERED: risperiDONE 90 MG SYR KIT (NO COST) PHARMACY STOCK SQ ONE (11:30)
[2022-10-23 12:52] LABS: Glucose,Whole Blood 187 mg/dL (70-110)
[2022-10-23] MEDS: haloperidoL 5 MG TAB PO PRN (13:59)
--- NOTE | 2022-10-23 14:50 | P.PN ---
Subjective Progress Note Date: 10/23/22 CHIEF COMPLAINT: Coffee-ground emesis HISTORY OF PRESENT ILLNESS: Patient seen in the psychiatric unit with bedside sitter. In bed. Denies any abdominal pain. Reports no hematemesis for the past 2 days. He did have a brown bowel movement. Last hemoglobin 12.8 on 10/20/2022. Last EGD 09/14/2022 with evidence of gastritis and esophagitis PHYSICAL EXAM: VITAL SIGNS: Reviewed. GENERAL: Well-developed in no acute distress. ABDOMEN: Soft. Nondistended. Nontender. NEUROLOGIC: Alert and oriented. Cranial nerves II through XII grossly intact. ASSESSMENT: 1. Coffee-ground emesis 2. History of peptic ulcer disease PLAN: -Patient will undergo EGD when stable from a psychiatric standpoint -Continue Protonix Physician Human Anatomy Teacher note has been reviewed by physician. Signing provider agrees with the documented findings, assessment, and plan of care. Objective - Vital Signs Vital signs: Vital Signs Temp 98.3 F 10/23/22 06:43 Pulse 96 10/23/22 06:43 Resp 16 10/23/22 06:43 BP 130/82 10/23/22 06:43 Pulse Ox 99 10/22/22 06:58 FiO2 - Labs CBC & Chem 7: 10/20/22 13:14 10/20/22 07:46 Labs: Abnormal Lab Results - Last 24 Hours (Table) 10/22/22 10/22/22 10/22/22 Range/Units 17:33 19:52 21:36 POC Glucose (mg/dL) 488 H 375 H 290 H (70-110) mg/dL 10/23/22 Range/Units 12:49 POC Glucose (mg/dL) 187 H (70-110) mg/dL
[2022-10-23 16:55] LABS: Glucose,Whole Blood 226 mg/dL (70-110)
[2022-10-23] MEDS: ACETAMINOPHEN TAB 325 MG TAB PO PRN (18:22)
[2022-10-23 20:14] LABS: Glucose,Whole Blood 499 mg/dL (70-110)
[2022-10-23] MEDS: MONTELUKAST 10 MG TAB PO SCH (20:52)
[2022-10-23] MEDS: QUEtiapine 100 MG TAB PO SCH (20:53)
[2022-10-23] MEDS: INSULIN DETEMIR (LEVEMIR) 100 UNIT/ML SYR SQ SCH (20:55)
[2022-10-23] MEDS: INSULIN ASPART (NovoLOG) 100 UNIT/ML VIAL SQ PRN (20:57)
[2022-10-23] MEDS ORDERED: MELATONIN 5 MG TABLET PO SCH (21:00)
[2022-10-23] MEDS ORDERED: risperiDONE 1 MG TAB PO SCH (21:00)
[2022-10-24 01:54] LABS: Glucose,Whole Blood 266 mg/dL (70-110)
[2022-10-24] MEDS: INSULIN ASPART (NovoLOG) 100 UNIT/ML VIAL SQ SCH ×2 (01:56→08:17)
[2022-10-24] MEDS: LORazepam 1 MG TAB PO PRN ×2 (02:33→08:28)
[2022-10-24 03:54] LABS: Glucose,Whole Blood 27 mg/dL (70-110)
[2022-10-24 04:22] LABS: Glucose,Whole Blood 88 mg/dL (70-110)
[2022-10-24 07:55] LABS: Glucose,Whole Blood 137 mg/dL (70-110)
[2022-10-24] MEDS: amLODIPine 5 MG TAB PO SCH (08:28)
[2022-10-24] MEDS: ATORVASTATIN 10 MG TAB PO SCH (08:29)
[2022-10-24] MEDS: ATROPINE OPHTH SOLN 1% 5ML BTL LEFT EYE SCH (08:29)
[2022-10-24] MEDS: risperiDONE 0.5 MG TAB PO SCH (08:29)
[2022-10-24] MEDS: METOCLOPRAMIDE 10 MG TAB PO SCH (08:29)
[2022-10-24] MEDS: lisinopriL 10 MG TAB PO SCH (08:29)
[2022-10-24] MEDS: METOPROLOL TARTRATE 50 MG TAB PO SCH (08:29)
[2022-10-24] MEDS: SUCRALFATE 1 GM TAB PO SCH (08:29)
[2022-10-24] MEDS: PANTOPRAZOLE 40 MG TABLET PO SCH (08:30)
[2022-10-24] MEDS: TRIHEXYPHENIDYL 2 MG TAB PO SCH (08:30)
[2022-10-24] MEDS: prednisoLONE ACETATE 1% OPHTH DROPS 5 ML BTL RIGHT EYE SCH (08:30)
[2022-10-24] MEDS: NICOTINE 14MG/24HR PATCH TRANSDERM SCH (08:36)
[2022-10-24 08:37] VITALS: BP 120/72
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
--- NOTE | 2022-10-24 12:42 | P.PN ---
Subjective Progress Note Date: 10/24/22 CHIEF COMPLAINT: Coffee-ground emesis HISTORY OF PRESENT ILLNESS: Patient seen in the psychiatric unit with bedside sitter. Denies any abdominal pain. Reports no hematemesis for the past 3 days. He did have a brown bowel movement. Last hemoglobin 12.8 on 10/20/2022. Last EGD 09/14/2022 with evidence of gastritis and esophagitis PHYSICAL EXAM: VITAL SIGNS: Reviewed. GENERAL: Well-developed in no acute distress. ABDOMEN: Soft. Nondistended. Nontender. NEUROLOGIC: Alert and oriented. Cranial nerves II through XII grossly intact. ASSESSMENT: 1. Hematemesis resolved 2. History of peptic ulcer disease PLAN: -Patient can be discharged from surgical standpoint -Recommend outpatient follow-up -Continue Protonix at discharge Physician Russian Language Instructor note has been reviewed by physician. Signing provider agrees with the documented findings, assessment, and plan of care. Objective - Vital Signs Vital signs: Vital Signs Temp 98.3 F 10/23/22 06:43 Pulse 96 10/23/22 06:43 Resp 16 10/23/22 06:43 BP 120/72 10/24/22 08:35 Pulse Ox 99 10/22/22 06:58 FiO2 - Labs CBC & Chem 7: 10/20/22 13:14 10/20/22 07:46 Labs: Abnormal Lab Results - Last 24 Hours (Table) 10/23/22 10/23/22 10/23/22 Range/Units 12:49 16:52 20:13 POC Glucose (mg/dL) 187 H 226 H 499 H (70-110) mg/dL 10/24/22 10/24/22 10/24/22 Range/Units 01:52 03:52 07:53 POC Glucose (mg/dL) 266 H 27 L 137 H (70-110) mg/dL
== END 2022-10-24 12:15 | disposition home or self-care (01) | DRG 885 ==
LOC: 3MHU 22:55
PROVIDERS: ADMIT Psychiatry & Neurology Psychiatry; ATTEND Psychiatry & Neurology Psychiatry
DX: F25.9 Schizoaffective disorder, unspecified (principal); E87.1 Hypo-osmolality and hyponatremia; K92.0 Hematemesis; R04.2 Hemoptysis; E10.43 Type 1 diabetes mellitus with diabetic autonomic (poly)neuropathy; E86.0 Dehydration; K31.84 Gastroparesis; E10.65 Type 1 diabetes mellitus with hyperglycemia; F31.9 Bipolar disorder, unspecified; Z79.4 Long term (current) use of insulin; F43.10 Post-traumatic stress disorder, unspecified; H54.8 Legal blindness, as defined in USA; G47.00 Insomnia, unspecified; I10 Essential (primary) hypertension; G25.81 Restless legs syndrome; H40.9 Unspecified glaucoma; K21.9 Gastro-esophageal reflux disease without esophagitis; K29.70 Gastritis, unspecified, without bleeding; F17.210 Nicotine dependence, cigarettes, uncomplicated; Z71.6 Tobacco abuse counseling; Z79.899 Other long term (current) drug therapy; Z87.11 Personal history of peptic ulcer disease; Z86.711 Personal history of pulmonary embolism; Z88.0 Allergy status to penicillin; Z88.8 Allergy status to other drugs, medicaments and biological substances; Z88.1 Allergy status to other antibiotic agents; Z91.040 Latex allergy status; Z71.41 Alcohol abuse counseling and surveillance of alcoholic; Z71.51 Drug abuse counseling and surveillance of drug abuser
CPT/HCPCS: 80053; 85025

== ENCOUNTER 2022-11-18 23:57 | Inpatient (IN) | payer MEDICARE, MEDICAID ==
[2022-11-19 00:10] LABS: Glucose,Whole Blood >600 mg/dL (70-110)
--- NOTE | 2022-11-19 00:13 | ED ---
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 Patient is cared for at home by his parents who are his legal guardians. Patient is brought to the emergency room today via police with a pickup order. Patient has been refusing to attend doctor's visits for his mental health. He's been noncompliant with medications. Mom reports that today she was able to give long-acting 24-hour insulin but not any short acting her when necessary doses. She's been having trouble monitoring his sugars. Patient's been quite agitated and combative. Patient reports she's not feeling right and he thinks his sugars are getting low. (Blanca Harding) - Related Data Home Medications Medication Instructions Recorded Confirmed Atorvastatin [Lipitor] 10 mg PO HS 01/08/22 11/19/22 Atropine Sulfate [Atropine Sulfate 1 drop LEFT EYE BID 01/08/22 11/19/22 1%] Montelukast [Singulair] 10 mg PO HS 01/08/22 11/19/22 prednisoLONE ACETATE 1% OPHTH 1 drop RIGHT EYE BID 01/08/22 11/19/22 [Pred Forte 1%] Glucagon Emergency Kit 1 mg IM ONCE PRN 09/03/22 11/19/22 Acetaminophen-Codeine 300-30mg 1 tab PO BID PRN 11/19/22 11/19/22 [Tylenol w/codeine #3] Albuterol Sulfate [Albuterol 1 - 2 puff PO RT-QID PRN 11/19/22 11/19/22 Sulfate Hfa] Apixaban [Eliquis Starter Pack See Taper PO DIRECTED 11/19/22 11/19/22 (for VTE)] Budesonide/Glycopyr/Formoterol 2 puff INHALATION RT-DAILY 11/19/22 11/19/22 [Breztri Aerosphere Inhaler] INSULIN ASPART (NovoLOG) [NovoLOG See Protocol SQ ACHS 11/19/22 11/19/22 (formulary)] Valproic Acid Oral Soln [Depakene 250 mg PO BID 11/19/22 11/19/22 Syrup] Previous Rx's Medication Instructions Recorded Ipratropium-Albuterol Nebulize 3 ml INHALATION RT-QID PRN 30 Days 09/20/22 [Duoneb 0.5 mg-3 mg/3 ml Soln] #120 each Metoclopramide [Reglan] 5 mg PO AC-TID PRN 90 Days #90 tab 09/20/22 Metoprolol Tartrate [Lopressor] 50 mg PO BID 30 Days #60 tab 09/20/22 amLODIPine [Norvasc] 5 mg PO BID 30 Days #60 tab 09/20/22 cloNIDine 0.2 MG/24HR PATCH 1 patch TRANSDERM Q7D 4 Days #4 09/20/22 [Catapres-TTS] patch lisinopriL [Zestril] 30 mg PO DAILY 30 Days #30 tab 09/20/22 INSULIN ASPART (NovoLOG) [NovoLOG 3 unit SQ AC-TID each 10/14/22 (formulary)] Insulin Detemir (Levemir) [Levemir] 30 unit SQ HS each 10/17/22 Ibuprofen [Motrin] 600 mg PO Q6HR PRN tab 10/24/22 Melatonin 10 mg PO HS 30 Days #60 tab 10/24/22 Nicotine 14Mg/24Hr Patch [Habitrol] 1 patch TRANSDERM DAILY 14 Days 10/24/22 #14 patch Pantoprazole [Protonix] 40 mg PO AC-BID 30 Days #60 tab 10/24/22 QUEtiapine [SEROquel] 100 mg PO HS 30 Days #30 tab 10/24/22 Sucralfate [Carafate] 1 gm PO BID 30 Days #60 tab 10/24/22 Trihexyphenidyl [Artane] 2 mg PO AC-BID 30 Days #60 tab 10/24/22 rOPINIRole HCL [Requip] 1 mg PO HS 30 Days #30 tab 10/24/22 risperiDONE ER inj [Perseris] 90 mg SQ QMONTHLY #1 each 10/24/22 Allergies Allergy/AdvReac Type Severity Reaction Status Date / Time adhesive tape Allergy Rash/Hives Verified 11/19/22 14:52 cefazolin Allergy Rash/Hives Verified 11/19/22 14:52 latex Allergy Rash/Hives Verified 11/19/22 14:52 amoxicillin [From Augmentin] AdvReac Nausea & Verified 11/19/22 14:52 Vomiting & Diarrhea clavulanic acid AdvReac Nausea & Verified 11/19/22 14:52 [From Augmentin] Vomiting & Diarrhea codeine AdvReac Hallucinati Verified 11/19/22 16:42 ons duloxetine [From Cymbalta] AdvReac Hallucinati Verified 11/19/22 14:52 ons pregabalin [From Lyrica] AdvReac Hallucinati Verified 11/19/22 14:52 ons Review of Systems ROS Other: All systems not noted in ROS Statement are negative. <Kirt Luke - Last Filed: 11/19/22 11:08> ROS Other: All systems not noted in ROS Statement are negative. <Blanca Harding - Last Filed: 11/19/22 21:51> ROS Statement: Those systems with pertinent positive or pertinent negative responses have been documented in the HPI. Past Medical History Past Medical History: Diabetes Mellitus Additional Past Medical History / Comment(s): bilateral glaucoma, Tachycardia, diabetic gastropariesis, diabetic neuropathy, migraine headaches, peptic ulcer disease, retinal detachment status post multiple surgeries History of Any Multi-Drug Resistant Organisms: None Reported Past Surgical History: Pacemaker Additional Past Surgical History / Comment(s): eye surgery, EGDs Past Anesthesia/Blood Transfusion Reactions: No Reported Reaction Type of Cardiac Device: Unknown Device Placement Date:: 2016 Past Psychological History: Anxiety, Bipolar, Depression Smoking Status: Current every day smoker Past Alcohol Use History: None Reported Additional Past Alcohol Use History / Comment(s): Patient is a smoker one pack per day for an unknown number of years. He denies any medical marijuana, marijuana, street drug or alcohol use. He does live at home with his parents. He is single and does not have any children. Past Drug Use History: Marijuana - Past Family History Father Additional Family Medical History / Comment(s): Patient does not know his father's age nor his health problems. Mother Additional Family Medical History / Comment(s): Patient does not know his mother's age but states she has fibromyalgia. Sister(s) Additional Family Medical History / Comment(s): Patient has 1 sister with no major medical problems. <Blanca Harding - Last Filed: 11/19/22 21:51> General Exam <Blanca Harding - Last Filed: 11/19/22 21:51> - General Exam Comments Initial Comments: Physical Exam GENERAL: Chronically ill-appearing HENT: Normocephalic, Atraumatic. EYES: Blind PULMONARY: Unlabored respirations CARDIOVASCULAR: RRR ABDOMEN: Gastric pacemaker present in right upper quadrant SKIN: Bruising on bilateral wrists from handcuffs Petechial discoloration of left lower extremity associated with DVT : Deferred NEUROLOGIC: Confused but moving all extremities MUSCULOSKELETAL: No obvious deformities PSYCHIATRIC: Appears to be acutely psychotic talking nonsense and tangential (Blanca Harding) Course Vital Signs 11/19/22 11/19/22 11/19/22 00:23 06:18 11:00 Temperature 97.8 F Pulse Rate 89 92 101 H Respiratory 18 18 18 Rate Blood Pressure 107/69 125/79 145/78 O2 Sat by Pulse 97 99 99 Oximetry 11/19/22 16:16 Temperature 98.0 F Pulse Rate 102 H Respiratory 20 Rate Blood Pressure 145/85 O2 Sat by Pulse 98 Oximetry Medical Decision Making - Lab Data Result diagrams: 11/19/22 00:37 11/19/22 00:37 <Kirt Luke - Last Filed: 11/19/22 11:08> - Lab Data Result diagrams: 11/19/22 00:37 11/19/22 00:37 <Blanca Harding - Last Filed: 11/19/22 21:51> - Medical Decision Making Patient seen by mental health services with plans for psychiatric admission/transfer. Patient reevaluated by myself. Patient admits to not taking his insulin feeling that is poisoning him. Patient states his blood sugar was never high. Patient refuses this medication however does want oxycodone. Patient does have flight of ideas and does seem somewhat paranoid. Positive clinical certificate completed. Patient's blood sugar has improved to tolerable level. Diagnosis: Schizophrenia Acute (Kirt Luke) Was pt. sent in by a medical professional or institution (, PA, FRAME CATCHER, urgent care, hospital, or [facility]...) When possible be specific @ -No Did you speak to anyone other than the patient for history (EMS, parent, family, police, friend...)? What history was obtained from this source @ -Law enforcement, patient's parents Did you review nursing and triage notes (agree or disagree)? Why? @ -I reviewed and agree with nursing and triage notes Were old charts reviewed (outside hosp., previous admission, EMS record, old EKG, old radiological studies, urgent care reports/EKG's, [facility] records)? Report findings @ -No old charts were reviewed Differential Diagnosis (chest pain, altered mental status, abdominal pain women, abdominal pain men, vaginal bleeding, weakness, fever, dyspnea, syncope, headache, dizziness, GI bleed, back pain, seizure, CVA, palpatations, mental health, musculoskeletal)? @ -Differential Altered Mental Status: Hypoglycemia, DKA, hypercapnia, ETOH, overdose, CO poisoning, trauma, myxedema coma, HTN encephalopathy, infection, encephalitis, psychosis, intercranial hemorrhage, hepatic encephalopathy, meningitis, CVA, this is not meant to be an all-inclusive list EKG interpreted by me (3pts min.). @ -As above X-rays interpreted by me (1pt min.). @ -None done CT interpreted by me (1pt min.). @ -None done U/S interpreted by me (1pt. min.). @ -None done What testing was considered but not performed or refused? (CT, X-rays, U/S, labs)? Why? @ -None What meds were considered but not given or refused? Why? @ -Insulin infusion was considered but patient responded well to single dose of insulin and IV fluids therefore insulin infusion was not indicated Did you discuss the management of the patient with other professionals (professionals i.e. , PA, FRAME CATCHER, lab, RT, psych nurse, child welfare social worker, job setter honing, teacher, parcel post officer, porter sample case)? Give summary @ -Psych nurse Was smoking cessation discussed for >3mins.? @ -No Was critical care preformed (if so, how long)? @ -No Were there social determinants of health that impacted care today? How? (Homelessness, low income, unemployed, alcoholism, drug addiction, transportation, low edu. Level, literacy, decrease access to med. care, prison, rehab)? @ -No Was there de-escalation of care discussed even if they declined (Discuss DNR or withdrawal of care, Hospice)? DNR status @ -No What co-morbidities impacted this encounter? (DM, HTN, Smoking, COPD, CAD, Cancer, CVA, ARF, Chemo, Hep., AIDS, mental health diagnosis, sleep apnea, morbid obesity)? @ -Diabetes Patient care is signed out to Dr. Luke at 8 AM pending evaluation by emergency psychiatric services to determine disposition. (Blanca Harding) - Lab Data Lab Results 11/19/22 11/19/22 11/19/22 Range/Units 00:08 00:37 00:37 WBC 8.2 (3.8-10.6) k/uL RBC 4.14 L (4.30-5.90) m/uL Hgb 12.3 L (13.0-17.5) gm/dL Hct 36.4 L (39.0-53.0) % MCV 88.0 (80.0-100.0) fL MCH 29.9 (25.0-35.0) pg MCHC 33.9 (31.0-37.0) g/dL RDW 12.6 (11.5-15.5) % Plt Count 324 (150-450) k/uL MPV 7.2 Neutrophils % 71 % Lymphocytes % 21 % Monocytes % 6 % Eosinophils % 1 % Basophils % 0 % Neutrophils # 5.8 (1.3-7.7) k/uL Lymphocytes # 1.7 (1.0-4.8) k/uL Monocytes # 0.5 (0-1.0) k/uL Eosinophils # 0.1 (0-0.7) k/uL Basophils # 0.0 (0-0.2) k/uL VBG pH (7.31-7.41) VBG pCO2 (37-51) mmHg VBG HCO3 (24-28) mmol/L Sodium (137-145) mmol/L Potassium (3.5-5.1) mmol/L Chloride (98-107) mmol/L Carbon Dioxide (22-30) mmol/L Anion Gap mmol/L BUN (9-20) mg/dL Creatinine (0.66-1.25) mg/dL Est GFR (CKD-EPI)AfAm (>60 ml/min/1.73 sqM) Est GFR (CKD-EPI)NonAf (>60 ml/min/1.73 sqM) Glucose (74-99) mg/dL POC Glucose (mg/dL) >600 H (70-110) mg/dL POC Glu Corrugated Box Machine Operator ID Ajay Lkue Lactic Ac Sepsis Rflx Plasma Lactic Acid Red (0.7-2.0) mmol/L Calcium (8.4-10.2) mg/dL Magnesium (1.6-2.3) mg/dL Total Bilirubin (0.2-1.3) mg/dL AST (17-59) U/L ALT (4-49) U/L Alkaline Phosphatase (38-126) U/L Total Protein (6.3-8.2) g/dL Albumin (3.5-5.0) g/dL Urine Color Colorless Urine Appearance Clear (Clear) Urine pH 5.5 (5.0-8.0) Ur Specific [place] 1.018 (1.001-1.035) Urine Protein Negative (Negative) Urine Glucose (UA) 4+ H (Negative) Urine Ketones Negative (Negative) Urine Blood Negative (Negative) Urine Nitrite Negative (Negative) Urine Bilirubin Negative (Negative) Urine Urobilinogen <2.0 (<2.0) mg/dL Ur Leukocyte Esterase Negative (Negative) Salicylates mg/dL Urine Opiates Screen Not Detected (NotDetected) Ur Oxycodone Screen Not Detected (NotDetected) Urine Methadone Screen Not Detected (NotDetected) Ur Propoxyphene Screen Not Detected (NotDetected) Acetaminophen ug/mL Ur Barbiturates Screen Not Detected (NotDetected) Valproic Acid ug/mL U Tricyclic Antidepress Detected H (NotDetected) Ur Phencyclidine Scrn Not Detected (NotDetected) Ur Amphetamines Screen Not Detected (NotDetected) U Methamphetamines Scrn Not Detected (NotDetected) U Benzodiazepines Scrn Not Detected (NotDetected) Urine Cocaine Screen Not Detected (NotDetected) U Marijuana (THC) Screen Not Detected (NotDetected) Serum Alcohol mg/dL Acetone, Qual (Negative) 11/19/22 11/19/22 11/19/22 Range/Units 00:37 00:37 00:37 WBC (3.8-10.6) k/uL RBC (4.30-5.90) m/uL Hgb (13.0-17.5) gm/dL Hct (39.0-53.0) % MCV (80.0-100.0) fL MCH (25.0-35.0) pg MCHC (31.0-37.0) g/dL RDW (11.5-15.5) % Plt Count (150-450) k/uL MPV Neutrophils % % Lymphocytes % % Monocytes % % Eosinophils % % Basophils % % Neutrophils # (1.3-7.7) k/uL Lymphocytes # (1.0-4.8) k/uL Monocytes # (0-1.0) k/uL Eosinophils # (0-0.7) k/uL Basophils # (0-0.2) k/uL VBG pH 7.41 (7.31-7.41) VBG pCO2 39 (37-51) mmHg VBG HCO3 25 (24-28) mmol/L Sodium 127 L (137-145) mmol/L Potassium 4.5 (3.5-5.1) mmol/L Chloride 94 L (98-107) mmol/L Carbon Dioxide 22 (22-30) mmol/L Anion Gap 11 mmol/L BUN 15 (9-20) mg/dL Creatinine 1.22 (0.66-1.25) mg/dL Est GFR (CKD-EPI)AfAm 87 (>60 ml/min/1.73 sqM) Est GFR (CKD-EPI)NonAf 76 (>60 ml/min/1.73 sqM) Glucose 603 H* (74-99) mg/dL POC Glucose (mg/dL) (70-110) mg/dL POC Glu Corrugated Box Machine Operator ID Lactic Ac Sepsis Rflx Plasma Lactic Acid Red 3.2 H* (0.7-2.0) mmol/L Calcium 9.4 (8.4-10.2) mg/dL Magnesium 1.9 (1.6-2.3) mg/dL Total Bilirubin 0.3 (0.2-1.3) mg/dL AST 18 (17-59) U/L ALT 19 (4-49) U/L Alkaline Phosphatase 165 H (38-126) U/L Total Protein 6.2 L (6.3-8.2) g/dL Albumin 4.0 (3.5-5.0) g/dL Urine Color Urine Appearance (Clear) Urine pH (5.0-8.0) Ur Specific [place] (1.001-1.035) Urine Protein (Negative) Urine Glucose (UA) (Negative) Urine Ketones (Negative) Urine Blood (Negative) Urine Nitrite (Negative) Urine Bilirubin (Negative) Urine Urobilinogen (<2.0) mg/dL Ur Leukocyte Esterase (Negative) Salicylates <1.0 mg/dL Urine Opiates Screen (NotDetected) Ur Oxycodone Screen (NotDetected) Urine Methadone Screen (NotDetected) Ur Propoxyphene Screen (NotDetected) Acetaminophen <10.0 ug/mL Ur Barbiturates Screen (NotDetected) Valproic Acid ug/mL U Tricyclic Antidepress (NotDetected) Ur Phencyclidine Scrn (NotDetected) Ur Amphetamines Screen (NotDetected) U Methamphetamines Scrn (NotDetected) U Benzodiazepines Scrn (NotDetected) Urine Cocaine Screen (NotDetected) U Marijuana (THC) Screen (NotDetected) Serum Alcohol <10 mg/dL Acetone, Qual Negative (Negative) 11/19/22 11/19/22 11/19/22 Range/Units 01:28 03:27 06:09 WBC (3.8-10.6) k/uL RBC (4.30-5.90) m/uL Hgb (13.0-17.5) gm/dL Hct (39.0-53.0) % MCV (80.0-100.0) fL MCH (25.0-35.0) pg MCHC (31.0-37.0) g/dL RDW (11.5-15.5) % Plt Count (150-450) k/uL MPV Neutrophils % % Lymphocytes % % Monocytes % % Eosinophils % % Basophils % % Neutrophils # (1.3-7.7) k/uL Lymphocytes # (1.0-4.8) k/uL Monocytes # (0-1.0) k/uL Eosinophils # (0-0.7) k/uL Basophils # (0-0.2) k/uL VBG pH (7.31-7.41) VBG pCO2 (37-51) mmHg VBG HCO3 (24-28) mmol/L Sodium (137-145) mmol/L Potassium (3.5-5.1) mmol/L Chloride (98-107) mmol/L Carbon Dioxide (22-30) mmol/L Anion Gap mmol/L BUN (9-20) mg/dL Creatinine (0.66-1.25) mg/dL Est GFR (CKD-EPI)AfAm (>60 ml/min/1.73 sqM) Est GFR (CKD-EPI)NonAf (>60 ml/min/1.73 sqM) Glucose (74-99) mg/dL POC Glucose (mg/dL) 303 H 102 (70-110) mg/dL POC Glu Corrugated Box Machine Operator TRU Luke, Ajay Paige Lactic Ac Sepsis Rflx Y Plasma Lactic Acid Red (0.7-2.0) mmol/L Calcium (8.4-10.2) mg/dL Magnesium (1.6-2.3) mg/dL Total Bilirubin (0.2-1.3) mg/dL AST (17-59) U/L ALT (4-49) U/L Alkaline Phosphatase (38-126) U/L Total Protein (6.3-8.2) g/dL Albumin (3.5-5.0) g/dL Urine Color Urine Appearance (Clear) Urine pH (5.0-8.0) Ur Specific [place] (1.001-1.035) Urine Protein (Negative) Urine Glucose (UA) (Negative) Urine Ketones (Negative) Urine Blood (Negative) Urine Nitrite (Negative) Urine Bilirubin (Negative) Urine Urobilinogen (<2.0) mg/dL Ur Leukocyte Esterase (Negative) Salicylates mg/dL Urine Opiates Screen (NotDetected) Ur Oxycodone Screen (NotDetected) Urine Methadone Screen (NotDetected) Ur Propoxyphene Screen (NotDetected) Acetaminophen ug/mL Ur Barbiturates Screen (NotDetected) Valproic Acid ug/mL U Tricyclic Antidepress (NotDetected) Ur Phencyclidine Scrn (NotDetected) Ur Amphetamines Screen (NotDetected) U Methamphetamines Scrn (NotDetected) U Benzodiazepines Scrn (NotDetected) Urine Cocaine Screen (NotDetected) U Marijuana (THC) Screen (NotDetected) Serum Alcohol mg/dL Acetone, Qual (Negative) 11/19/22 11/19/22 11/19/22 Range/Units 06:25 09:34 14:08 WBC (3.8-10.6) k/uL RBC (4.30-5.90) m/uL Hgb (13.0-17.5) gm/dL Hct (39.0-53.0) % MCV (80.0-100.0) fL MCH (25.0-35.0) pg MCHC (31.0-37.0) g/dL RDW (11.5-15.5) % Plt Count (150-450) k/uL MPV Neutrophils % % Lymphocytes % % Monocytes % % Eosinophils % % Basophils % % Neutrophils # (1.3-7.7) k/uL Lymphocytes # (1.0-4.8) k/uL Monocytes # (0-1.0) k/uL Eosinophils # (0-0.7) k/uL Basophils # (0-0.2) k/uL VBG pH (7.31-7.41) VBG pCO2 (37-51) mmHg VBG HCO3 (24-28) mmol/L Sodium (137-145) mmol/L Potassium (3.5-5.1) mmol/L Chloride (98-107) mmol/L Carbon Dioxide (22-30) mmol/L Anion Gap mmol/L BUN (9-20) mg/dL Creatinine (0.66-1.25) mg/dL Est GFR (CKD-EPI)AfAm (>60 ml/min/1.73 sqM) Est GFR (CKD-EPI)NonAf (>60 ml/min/1.73 sqM) Glucose (74-99) mg/dL POC Glucose (mg/dL) 91 376 H (70-110) mg/dL POC Glu Corrugated Box Machine Operator ID Francisco Cordero Michael Lactic Ac Sepsis Rflx Plasma Lactic Acid Red 1.4 (0.7-2.0) mmol/L Calcium (8.4-10.2) mg/dL Magnesium (1.6-2.3) mg/dL Total Bilirubin (0.2-1.3) mg/dL AST (17-59) U/L ALT (4-49) U/L Alkaline Phosphatase (38-126) U/L Total Protein (6.3-8.2) g/dL Albumin (3.5-5.0) g/dL Urine Color Urine Appearance (Clear) Urine pH (5.0-8.0) Ur Specific [place] (1.001-1.035) Urine Protein (Negative) Urine Glucose (UA) (Negative) Urine Ketones (Negative) Urine Blood (Negative) Urine Nitrite (Negative) Urine Bilirubin (Negative) Urine Urobilinogen (<2.0) mg/dL Ur Leukocyte Esterase (Negative) Salicylates mg/dL Urine Opiates Screen (NotDetected) Ur Oxycodone Screen (NotDetected) Urine Methadone Screen (NotDetected) Ur Propoxyphene Screen (NotDetected) Acetaminophen ug/mL Ur Barbiturates Screen (NotDetected) Valproic Acid ug/mL U Tricyclic Antidepress (NotDetected) Ur Phencyclidine Scrn (NotDetected) Ur Amphetamines Screen (NotDetected) U Methamphetamines Scrn (NotDetected) U Benzodiazepines Scrn (NotDetected) Urine Cocaine Screen (NotDetected) U Marijuana (THC) Screen (NotDetected) Serum Alcohol mg/dL Acetone, Qual (Negative) 11/19/22 11/19/22 11/19/22 Range/Units 16:18 16:36 17:35 WBC (3.8-10.6) k/uL RBC (4.30-5.90) m/uL Hgb (13.0-17.5) gm/dL Hct (39.0-53.0) % MCV (80.0-100.0) fL MCH (25.0-35.0) pg MCHC (31.0-37.0) g/dL RDW (11.5-15.5) % Plt Count (150-450) k/uL MPV Neutrophils % % Lymphocytes % % Monocytes % % Eosinophils % % Basophils % % Neutrophils # (1.3-7.7) k/uL Lymphocytes # (1.0-4.8) k/uL Monocytes # (0-1.0) k/uL Eosinophils # (0-0.7) k/uL Basophils # (0-0.2) k/uL VBG pH (7.31-7.41) VBG pCO2 (37-51) mmHg VBG HCO3 (24-28) mmol/L Sodium (137-145) mmol/L Potassium (3.5-5.1) mmol/L Chloride (98-107) mmol/L Carbon Dioxide (22-30) mmol/L Anion Gap mmol/L BUN (9-20) mg/dL Creatinine (0.66-1.25) mg/dL Est GFR (CKD-EPI)AfAm (>60 ml/min/1.73 sqM) Est GFR (CKD-EPI)NonAf (>60 ml/min/1.73 sqM) Glucose (74-99) mg/dL POC Glucose (mg/dL) 426 H 293 H (70-110) mg/dL POC Glu Corrugated Box Machine Operator ID Fern Farr John Lactic Ac Sepsis Rflx Plasma Lactic Acid Red (0.7-2.0) mmol/L Calcium (8.4-10.2) mg/dL Magnesium (1.6-2.3) mg/dL Total Bilirubin (0.2-1.3) mg/dL AST (17-59) U/L ALT (4-49) U/L Alkaline Phosphatase (38-126) U/L Total Protein (6.3-8.2) g/dL Albumin (3.5-5.0) g/dL Urine Color Urine Appearance (Clear) Urine pH (5.0-8.0) Ur Specific [place] (1.001-1.035) Urine Protein (Negative) Urine Glucose (UA) (Negative) Urine Ketones (Negative) Urine Blood (Negative) Urine Nitrite (Negative) Urine Bilirubin (Negative) Urine Urobilinogen (<2.0) mg/dL Ur Leukocyte Esterase (Negative) Salicylates mg/dL Urine Opiates Screen (NotDetected) Ur Oxycodone Screen (NotDetected) Urine Methadone Screen (NotDetected) Ur Propoxyphene Screen (NotDetected) Acetaminophen ug/mL Ur Barbiturates Screen (NotDetected) Valproic Acid <10.0 ug/mL U Tricyclic Antidepress (NotDetected) Ur Phencyclidine Scrn (NotDetected) Ur Amphetamines Screen (NotDetected) U Methamphetamines Scrn (NotDetected) U Benzodiazepines Scrn (NotDetected) Urine Cocaine Screen (NotDetected) U Marijuana (THC) Screen (NotDetected) Serum Alcohol mg/dL Acetone, Qual (Negative) Disposition Is patient prescribed a controlled substance at d/c from ED?: No Time of Disposition: 11:10 <Kirt Luke - Last Filed: 11/19/22 11:08> Is patient prescribed a controlled substance at d/c from ED?: No <Blanca Harding - Last Filed: 11/19/22 21:51> Clinical Impression: Psychosis, Schizophrenia Disposition: TRANSFER TO PSYCH HOSP/UNIT Condition: Serious Referrals: None,Stated [Primary Care Provider] - 1-2 days
[2022-11-19] MEDS ORDERED: SODIUM CHLORIDE 0.9% 2,000 ML IV ONE (00:35)
[2022-11-19 01:01] LABS: VBG PH 7.41 (7.31-7.41)
[2022-11-19 01:02] LABS: Basophils % (A) 0 %; Eosinophils # (A) 0.1 k/uL (0-0.7); Eosinophils % (A) 1 %; HCT 36.4 % (39.0-53.0); HGB 12.3 gm/dL (13.0-17.5); Lymphocytes # (A) 1.7 k/uL (1.0-4.8); Lymphocytes % (A) 21 %; MCH 29.9 pg (25.0-35.0); MCHC 33.9 g/dL (31.0-37.0); Mean Platelet Volume 7.2; Monocytes # (A) 0.5 k/uL (0-1.0); Monocytes % (A) 6 %; Neutrophils # (A) 5.8 k/uL (1.3-7.7); Neutrophils % (A) 71 %; Platelet Count 324 k/uL (150-450); RBC 4.14 m/uL (4.30-5.90); RDW 12.6 % (11.5-15.5); WBC 8.2 k/uL (3.8-10.6)
[2022-11-19 01:13] LABS: Appearance,Urine Clear (Clear); Bilirubin,Urine Negative (Negative); Blood,Urine Negative (Negative); Color,Urine Colorless; Glucose,Urine (UA) 4+ (Negative); Ketones,Urine Negative (Negative); Leukocyte Esterase,Urine Negative (Negative); Nitrite,Urine Negative (Negative); PH, Urine 5.5 (5.0-8.0); Protein,Urine Negative (Negative); Specific Gravity,Urine 1.018 (1.001-1.035); Urobilinogen,Urine <2.0 mg/dL (<2.0)
[2022-11-19 01:14] LABS: ALT 19 U/L (4-49); AST 18 U/L (17-59); Acetaminophen <10.0 ug/mL; African American GFR (CKD) 87 (>60 ml/min/1.73 sqM); Alcohol <10 mg/dL; Alkaline Phosphatase 165 U/L (38-126); Anion Gap 11 mmol/L; Blood Urea Nitrogen 15 mg/dL (9-20); Calcium 9.4 mg/dL (8.4-10.2); Carbon Dioxide 22 mmol/L (22-30); Chloride 94 mmol/L (98-107); Magnesium 1.9 mg/dL (1.6-2.3); Non-African American GFR(CKD) 76 (>60 ml/min/1.73 sqM); Potassium 4.5 mmol/L (3.5-5.1); Salicylate <1.0 mg/dL; Sodium 127 mmol/L (137-145); Total Bilirubin 0.3 mg/dL (0.2-1.3); Total Protein 6.2 g/dL (6.3-8.2)
[2022-11-19 01:29] LABS: Glucose 603 mg/dL (74-99)
[2022-11-19] MEDS ORDERED: INSULIN REGULAR 100 UNIT/ML VIAL (IM/SQ) SQ ONE ×2 (01:35→15:55)
[2022-11-19 01:37] LABS: Amphetamine Screen,Urine Not Detected (NotDetected); Barbiturate Screen,Urine Not Detected (NotDetected); Benzodiazepines Screen,Urine Not Detected (NotDetected); Cocaine Screen,Urine Not Detected (NotDetected); Methadone Screen, Urine Not Detected (NotDetected); Opiate Screen,Urine Not Detected (NotDetected); Oxycodone Screen, Urine Not Detected (NotDetected); Phencyclidine Screen,Urine Not Detected (NotDetected); Tricyclic Antidepressant,Urine Detected (NotDetected); Urn Cannabinoid Scrn Not Detected (NotDetected)
[2022-11-19] MEDS ORDERED: HYDROmorphone 1 MG/ML 1 ML SYRINGE IVP STA (02:34)
[2022-11-19 03:28] LABS: Glucose,Whole Blood 303 mg/dL (70-110)
[2022-11-19 06:10] LABS: Glucose,Whole Blood 102 mg/dL (70-110)
[2022-11-19] MEDS: HYDROmorphone 0.5 MG/0.5 ML SYRINGE IVP PRN ×3 (06:17→21:54)
[2022-11-19 09:36] LABS: Glucose,Whole Blood 91 mg/dL (70-110)
[2022-11-19 14:10] LABS: Glucose,Whole Blood 376 mg/dL (70-110)
[2022-11-19] MEDS ORDERED: Acetaminophen-Codeine 300-30mg TAB PO PRN (15:52)
[2022-11-19 16:19] LABS: Glucose,Whole Blood 426 mg/dL (70-110)
[2022-11-19] MEDS: APIXABAN 5 MG TAB PO SCH (16:31)
[2022-11-19 17:37] LABS: Glucose,Whole Blood 293 mg/dL (70-110)
[2022-11-19] MEDS ORDERED: HYDROmorphone 0.5 MG/0.5 ML SYRINGE IVP STA (18:38)
[2022-11-19] MEDS: INSULIN ASPART (NovoLOG) 100 UNIT/ML VIAL SQ SCH (18:45)
[2022-11-19] MEDS: PANTOPRAZOLE 40 MG TABLET PO SCH (18:45)
[2022-11-19] MEDS: TRIHEXYPHENIDYL 2 MG TAB PO SCH (19:39)
[2022-11-19] MEDS: cloNIDine 0.2 MG/24HR PATCH TRANSDERM SCH (19:40)
[2022-11-19] MEDS: QUEtiapine 100 MG TAB PO SCH (21:19)
[2022-11-19] MEDS: MELATONIN 5 MG TABLET PO SCH (21:19)
[2022-11-19] MEDS: SUCRALFATE 1 GM TAB PO SCH (21:20)
[2022-11-19] MEDS: ATORVASTATIN 10 MG TAB PO SCH (21:20)
[2022-11-19] MEDS: MONTELUKAST 10 MG TAB PO SCH (21:21)
[2022-11-19] MEDS: VALPROIC ACID ORAL SOLN 250 MG/5 ML CUP PO SCH (21:22)
[2022-11-19] MEDS: prednisoLONE ACETATE 1% OPHTH DROPS 5 ML BTL RIGHT EYE SCH (21:23)
[2022-11-19] MEDS: ATROPINE OPHTH SOLN 1% 5ML BTL LEFT EYE SCH (21:23)
[2022-11-19] MEDS: METOPROLOL TARTRATE 50 MG TAB PO SCH (21:25)
[2022-11-19 21:53] LABS: Glucose,Whole Blood 324 mg/dL (70-110)
[2022-11-19] MEDS: INSULIN DETEMIR (LEVEMIR) 100 UNIT/ML SYR SQ SCH (21:58)
[2022-11-20 06:56] LABS: Glucose,Whole Blood 145 mg/dL (70-110)
[2022-11-20] MEDS: TRIHEXYPHENIDYL 2 MG TAB PO SCH ×2 (07:06→18:21)
[2022-11-20] MEDS: PANTOPRAZOLE 40 MG TABLET PO SCH ×2 (07:06→17:11)
[2022-11-20] MEDS: HYDROmorphone 0.5 MG/0.5 ML SYRINGE IVP PRN ×4 (07:08→18:50)
[2022-11-20] MEDS: INSULIN ASPART (NovoLOG) 100 UNIT/ML VIAL SQ SCH ×4 (07:08→21:00)
[2022-11-20] MEDS: SYMBICORT 160-4.5 MCG INHALER INHALATION SCH ×2 (08:32→21:16)
[2022-11-20] MEDS: IPRATROPIUM 0.5 MG/2.5 ML NEBU INHALATION SCH ×3 (08:32→15:58)
[2022-11-20] MEDS: APIXABAN 5 MG TAB PO SCH ×2 (09:09→20:52)
[2022-11-20] MEDS: ATROPINE OPHTH SOLN 1% 5ML BTL LEFT EYE SCH ×2 (09:10→20:53)
[2022-11-20] MEDS: SUCRALFATE 1 GM TAB PO SCH ×2 (09:11→20:52)
[2022-11-20] MEDS: prednisoLONE ACETATE 1% OPHTH DROPS 5 ML BTL RIGHT EYE SCH ×2 (09:11→20:53)
[2022-11-20] MEDS: VALPROIC ACID ORAL SOLN 250 MG/5 ML CUP PO SCH ×2 (09:11→20:52)
[2022-11-20] MEDS: METOPROLOL TARTRATE 50 MG TAB PO SCH ×2 (09:11→20:52)
[2022-11-20] MEDS: lisinopriL 10 MG TAB PO SCH (09:11)
[2022-11-20] MEDS: NICOTINE 14MG/24HR PATCH TRANSDERM SCH (09:12)
[2022-11-20 11:50] LABS: Glucose,Whole Blood 213 mg/dL (70-110)
[2022-11-20 16:54] LABS: Glucose,Whole Blood 357 mg/dL (70-110)
[2022-11-20] MEDS ORDERED: HALOPERIDOL LACTATE 5 MG/ML 1 ML VIAL IM PRN (19:46)
[2022-11-20] MEDS ORDERED: LORazepam 2 MG/ML INJ IM PRN (19:46)
[2022-11-20] MEDS ORDERED: MAGNESIUM HYDROXIDE 2,400 MG/30 ML CUP PO PRN (19:46)
[2022-11-20 20:31] LABS: Glucose,Whole Blood 363 mg/dL (70-110)
[2022-11-20] MEDS: MONTELUKAST 10 MG TAB PO SCH (20:52)
[2022-11-20] MEDS: ATORVASTATIN 10 MG TAB PO SCH (20:52)
[2022-11-20] MEDS: MELATONIN 5 MG TABLET PO SCH (20:52)
[2022-11-20] MEDS: QUEtiapine 100 MG TAB PO SCH (20:52)
[2022-11-20] MEDS: INSULIN DETEMIR (LEVEMIR) 100 UNIT/ML SYR SQ SCH (21:07)
[2022-11-20] MEDS: TIOTROPIUM 2.5 MCG INHALER (MHU) INHALATION SCH (21:17)
--- NOTE | 2022-11-21 02:12 | P.CONS ---
History of Present Illness - Reason for Consult Consult date: 11/21/22 medical eval - Chief Complaint combative - History of Present Illness 37-year-old male with diabetes mellitus and hypertension Patient was brought into the hospital by police upon a pickup order due to noncompliance with his medications and doctors visits. While interviewed patient has strong opinions about his medications he reports that he doesn't take insulin as it makes his blood sugar high and refuses to take his blood pressure medications that makes his blood pressure high. He gets angry and agitated quickly if questioned he feels to provide any other meaningful history. As he is very agitated and combative Review of systems Unable to obtain Physical exam on exam Constitutional: Patient seems to be agitated and restless Eyes: Anicteric sclerae, moist conjunctiva, Pupils equal round reactive to light Lungs: Good breath sounds bilaterally Cardiovascular: Normal S1/S2 regular rate and rhythm Abdominal: Soft Nontender, no guarding, rebound or rigidity Abdomen moving with respiration Normoactive bowel sounds Extremities: No clubbing Pedal pulses intact and symmetrical Radial pulses intact and symmetrical No calf tenderness Psychiatric: Alert and oriented to person, place and time Neuro moving all 4 extremities spontaneously Past Medical History Past Medical History: Diabetes Mellitus Additional Past Medical History / Comment(s): bilateral glaucoma, Tachycardia, diabetic gastropariesis, diabetic neuropathy, migraine headaches, peptic ulcer disease, retinal detachment status post multiple surgeries History of Any Multi-Drug Resistant Organisms: None Reported Past Surgical History: Pacemaker Additional Past Surgical History / Comment(s): eye surgery, EGDs Past Anesthesia/Blood Transfusion Reactions: No Reported Reaction Type of Cardiac Device: Unknown Device Placement Date:: 2016 Past Psychological History: Anxiety, Bipolar, Depression Smoking Status: Current every day smoker Past Alcohol Use History: None Reported Additional Past Alcohol Use History / Comment(s): Patient is a smoker one pack per day for an unknown number of years. He denies any medical marijuana, marijuana, street drug or alcohol use. He does live at home with his parents. He is single and does not have any children. Past Drug Use History: Marijuana - Past Family History Father Additional Family Medical History / Comment(s): Patient does not know his father's age nor his health problems. Mother Additional Family Medical History / Comment(s): Patient does not know his mother's age but states she has fibromyalgia. Sister(s) Additional Family Medical History / Comment(s): Patient has 1 sister with no major medical problems. Medications and Allergies Home Medications Medication Instructions Recorded Confirmed Type Atorvastatin [Lipitor] 10 mg PO HS 01/08/22 11/19/22 History Atropine Sulfate [Atropine Sulfate 1 drop LEFT EYE BID 01/08/22 11/19/22 History 1%] Montelukast [Singulair] 10 mg PO HS 01/08/22 11/19/22 History prednisoLONE ACETATE 1% OPHTH 1 drop RIGHT EYE BID 01/08/22 11/19/22 History [Pred Forte 1%] Glucagon Emergency Kit 1 mg IM ONCE PRN 09/03/22 11/19/22 History Ipratropium-Albuterol Nebulize 3 ml INHALATION RT-QID PRN 30 Days 09/20/22 11/19/22 Rx [Duoneb 0.5 mg-3 mg/3 ml Soln] #120 each Metoclopramide [Reglan] 5 mg PO AC-TID PRN 90 Days #90 tab 09/20/22 11/19/22 Rx Metoprolol Tartrate [Lopressor] 50 mg PO BID 30 Days #60 tab 09/20/22 11/19/22 Rx amLODIPine [Norvasc] 5 mg PO BID 30 Days #60 tab 09/20/22 11/19/22 Rx cloNIDine 0.2 MG/24HR PATCH 1 patch TRANSDERM Q7D 4 Days #4 09/20/22 11/19/22 Rx [Catapres-TTS] patch lisinopriL [Zestril] 30 mg PO DAILY 30 Days #30 tab 09/20/22 11/19/22 Rx INSULIN ASPART (NovoLOG) [NovoLOG 3 unit SQ AC-TID each 10/14/22 11/19/22 Rx (formulary)] Insulin Detemir (Levemir) [Levemir] 30 unit SQ HS each 10/17/22 11/19/22 Rx Ibuprofen [Motrin] 600 mg PO Q6HR PRN tab 10/24/22 11/19/22 Rx Melatonin 10 mg PO HS 30 Days #60 tab 10/24/22 11/19/22 Rx Nicotine 14Mg/24Hr Patch [Habitrol] 1 patch TRANSDERM DAILY 14 Days 10/24/22 11/19/22 Rx #14 patch Pantoprazole [Protonix] 40 mg PO AC-BID 30 Days #60 tab 10/24/22 11/19/22 Rx QUEtiapine [SEROquel] 100 mg PO HS 30 Days #30 tab 10/24/22 11/19/22 Rx Sucralfate [Carafate] 1 gm PO BID 30 Days #60 tab 10/24/22 11/19/22 Rx Trihexyphenidyl [Artane] 2 mg PO AC-BID 30 Days #60 tab 10/24/22 11/19/22 Rx rOPINIRole HCL [Requip] 1 mg PO HS 30 Days #30 tab 10/24/22 11/19/22 Rx risperiDONE ER inj [Perseris] 90 mg SQ QMONTHLY #1 each 10/24/22 11/19/22 Rx Acetaminophen-Codeine 300-30mg 1 tab PO BID PRN 11/19/22 11/19/22 History [Tylenol w/codeine #3] Albuterol Sulfate [Albuterol 1 - 2 puff PO RT-QID PRN 11/19/22 11/19/22 History Sulfate Hfa] Apixaban [Eliquis Starter Pack See Taper PO DIRECTED 11/19/22 11/19/22 Hi story (for VTE)] Budesonide/Glycopyr/Formoterol 2 puff INHALATION RT-DAILY 11/19/22 11/19/22 History [Breztri Aerosphere Inhaler] INSULIN ASPART (NovoLOG) [NovoLOG See Protocol SQ ACHS 11/19/22 11/19/22 History (formulary)] Valproic Acid Oral Soln [Depakene 250 mg PO BID 11/19/22 11/19/22 History Syrup] Allergies Allergy/AdvReac Type Severity Reaction Status Date / Time adhesive tape Allergy Rash/Hives Verified 11/19/22 14:52 cefazolin Allergy Rash/Hives Verified 11/19/22 14:52 latex Allergy Rash/Hives Verified 11/19/22 14:52 amoxicillin [From Augmentin] AdvReac Nausea & Verified 11/19/22 14:52 Vomiting & Diarrhea clavulanic acid AdvReac Nausea & Verified 11/19/22 14:52 [From Augmentin] Vomiting & Diarrhea codeine AdvReac Hallucinati Verified 11/19/22 16:42 ons duloxetine [From Cymbalta] AdvReac Hallucinati Verified 11/19/22 14:52 ons pregabalin [From Lyrica] AdvReac Hallucinati Verified 11/19/22 14:52 ons Physical Exam Vitals: Vital Signs Temp Pulse Pulse Resp BP BP Pulse Ox 11/20/22 22:40 98.2 F 113 H 18 176/91 98 11/20/22 14:00 98 F 86 18 103/73 97 11/20/22 11:32 98.2 F 89 18 110/73 96 11/20/22 07:40 122/81 11/20/22 07:26 98.5 F 97 18 122/18 97 Intake and Output 11/20/22 11/20/22 11/21/22 14:59 22:59 06:59 Other: Weight 63.616 kg Results CBC & Chem 7: 11/19/22 00:37 11/22/22 20:16 Labs: Abnormal Lab Results - Last 24 Hours (Table) 11/20/22 11/20/22 11/20/22 Range/Units 06:55 11:49 16:52 POC Glucose (mg/dL) 145 H 213 H 357 H (70-110) mg/dL 11/20/22 Range/Units 20:29 POC Glucose (mg/dL) 363 H (70-110) mg/dL Assessment and Plan Assessment: Acute psychosis Management per psych Diabetes mellitus Insulin sliding scale . Continue with long-acting insulin 30 units daily at bedtime Patient was hyperglycemic upon presentation now improved repeat BMP shows no evidence of DKA Serum acetone negative Hypertension Continue with lisinopril and metoprolol Patient with clonidine patch 0.2 mg Blood work reviewed showed white count 8.2 hemoglobin 12.3 unremarkable Hyponatremia with sodium 127 improved to 136 Most likely pseudohyponatremia initially upon presentation due to hyperglycemia upon presentation to the ED initially Thank you for this consultation
[2022-11-21] MEDS: TRIHEXYPHENIDYL 2 MG TAB PO SCH ×2 (07:43→17:44)
[2022-11-21] MEDS: PANTOPRAZOLE 40 MG TABLET PO SCH ×2 (07:43→17:44)
[2022-11-21 07:49] LABS: Glucose,Whole Blood 90 mg/dL (70-110)
[2022-11-21] MEDS: INSULIN ASPART (NovoLOG) 100 UNIT/ML VIAL SQ SCH ×7 (08:02→20:25)
[2022-11-21] MEDS: SYMBICORT 160-4.5 MCG INHALER INHALATION SCH ×2 (08:51→20:23)
[2022-11-21] MEDS: ATROPINE OPHTH SOLN 1% 5ML BTL LEFT EYE SCH ×2 (08:52→20:24)
[2022-11-21] MEDS: NICOTINE 14MG/24HR PATCH TRANSDERM SCH (08:52)
[2022-11-21] MEDS: prednisoLONE ACETATE 1% OPHTH DROPS 5 ML BTL RIGHT EYE SCH ×2 (08:53→20:26)
[2022-11-21] MEDS: METOPROLOL TARTRATE 50 MG TAB PO SCH ×2 (08:54→20:26)
[2022-11-21] MEDS: VALPROIC ACID ORAL SOLN 250 MG/5 ML CUP PO SCH ×2 (08:55→20:27)
[2022-11-21] MEDS: SUCRALFATE 1 GM TAB PO SCH ×2 (08:55→20:27)
[2022-11-21] MEDS: APIXABAN 5 MG TAB PO SCH ×2 (08:55→20:24)
[2022-11-21] MEDS: ACETAMINOPHEN TAB 325 MG TAB PO PRN (09:02)
[2022-11-21 09:09] LABS: Glucose,Whole Blood 107 mg/dL (70-110)
[2022-11-21] MEDS: lisinopriL 10 MG TAB PO SCH (09:22)
--- NOTE | 2022-11-21 11:41 | P.HP ---
Psychiatric H&P - . H&P Date: 11/21/22 History & Physical: Allergies Allergy/AdvReac Type Severity Reaction Status Date / Time adhesive tape Allergy Rash/Hives Verified 11/19/22 14:52 cefazolin Allergy Rash/Hives Verified 11/19/22 14:52 latex Allergy Rash/Hives Verified 11/19/22 14:52 amoxicillin From Augmentin AdvReac Nausea & Verified 11/19/22 14:52 Vomiting & Diarrhea clavulanic acid AdvReac Nausea & Verified 11/19/22 14:52 From Augmentin Vomiting & Diarrhea codeine AdvReac Hallucinati Verified 11/19/22 16:42 ons duloxetine From Cymbalta AdvReac Hallucinati Verified 11/19/22 14:52 ons pregabalin From Lyrica AdvReac Hallucinati Verified 11/19/22 14:52 ons Vital Signs Temp 98.2 F 11/20/22 22:40 Pulse 113 H 11/20/22 22:40 Resp 18 11/20/22 22:40 BP 176/91 11/20/22 22:40 Pulse Ox 98 11/20/22 22:40 FiO2 Intake & Output 11/20/22 11/21/22 11/21/22 18:59 06:59 18:59 Weight 63.616 kg Laboratory Last Values WBC 8.2 k/uL (3.8-10.6) 11/19/22 00:37 RBC 4.14 m/uL (4.30-5.90) L 11/19/22 00:37 Hgb 12.3 gm/dL (13.0-17.5) L 11/19/22 00:37 Hct 36.4 % (39.0-53.0) L 11/19/22 00:37 MCV 88.0 fL (80.0-100.0) 11/19/22 00:37 MCH 29.9 pg (25.0-35.0) 11/19/22 00:37 MCHC 33.9 g/dL (31.0-37.0) 11/19/22 00:37 RDW 12.6 % (11.5-15.5) 11/19/22 00:37 Plt Count 324 k/uL (150-450) 11/19/22 00:37 MPV 7.2 11/19/22 00:37 Neutrophils % 71 % 11/19/22 00:37 Lymphocytes % 21 % 11/19/22 00:37 Monocytes % 6 % 11/19/22 00:37 Eosinophils % 1 % 11/19/22 00:37 Basophils % 0 % 11/19/22 00:37 Neutrophils # 5.8 k/uL (1.3-7.7) 11/19/22 00:37 Lymphocytes # 1.7 k/uL (1.0-4.8) 11/19/22 00:37 Monocytes # 0.5 k/uL (0-1.0) 11/19/22 00:37 Eosinophils # 0.1 k/uL (0-0.7) 11/19/22 00:37 Basophils # 0.0 k/uL (0-0.2) 11/19/22 00:37 VBG pH 7.41 (7.31-7.41) 11/19/22 00:37 VBG pCO2 39 mmHg (37-51) 11/19/22 00:37 VBG HCO3 25 mmol/L (24-28) 11/19/22 00:37 Sodium 127 mmol/L (137-145) L 11/19/22 00:37 Potassium 4.5 mmol/L (3.5-5.1) 11/19/22 00:37 Chloride 94 mmol/L (98-107) L 11/19/22 00:37 Carbon Dioxide 22 mmol/L (22-30) 11/19/22 00:37 Anion Gap 11 mmol/L 11/19/22 00:37 BUN 15 mg/dL (9-20) 11/19/22 00:37 Creatinine 1.22 mg/dL (0.66-1.25) 11/19/22 00:37 Est GFR (CKD-EPI)AfAm 87 (>60 ml/min/1.73 sqM) 11/19/22 00:37 Est GFR (CKD-EPI)NonAf 76 (>60 ml/min/1.73 sqM) 11/19/22 00:37 Glucose 603 mg/dL (74-99) H* 11/19/22 00:37 POC Glucose (mg/dL) 107 mg/dL (70-110) 11/21/22 09:00 POC Glu Bpm Developer Blanca Hughes 11/21/22 09:00 Lactic Ac Sepsis Rflx Y 11/19/22 01:28 Plasma Lactic Acid Red 1.4 mmol/L (0.7-2.0) 11/19/22 06:25 Calcium 9.4 mg/dL (8.4-10.2) 11/19/22 00:37 Magnesium 1.9 mg/dL (1.6-2.3) 11/19/22 00:37 Total Bilirubin 0.3 mg/dL (0.2-1.3) 11/19/22 00:37 AST 18 U/L (17-59) 11/19/22 00:37 ALT 19 U/L (4-49) 11/19/22 00:37 Alkaline Phosphatase 165 U/L (38-126) H 11/19/22 00:37 Total Protein 6.2 g/dL (6.3-8.2) L 11/19/22 00:37 Albumin 4.0 g/dL (3.5-5.0) 11/19/22 00:37 TSH 0.917 mIU/L (0.465-4.680) 11/19/22 16:36 Urine Color Colorless 11/19/22 00:37 Urine Appearance Clear (Clear) 11/19/22 00:37 Urine pH 5.5 (5.0-8.0) 11/19/22 00:37 Ur Specific [place] 1.018 (1.001-1.035) 11/19/22 00:37 Urine Protein Negative (Negative) 11/19/22 00:37 Urine Glucose (UA) 4+ (Negative) H 11/19/22 00:37 Urine Ketones Negative (Negative) 11/19/22 00:37 Urine Blood Negative (Negative) 11/19/22 00:37 Urine Nitrite Negative (Negative) 11/19/22 00:37 Urine Bilirubin Negative (Negative) 11/19/22 00:37 Urine Urobilinogen <2.0 mg/dL (<2.0) 11/19/22 00:37 Ur Leukocyte Esterase Negative (Negative) 11/19/22 00:37 Salicylates <1.0 mg/dL 11/19/22 00:37 Urine Opiates Screen Not Detected (NotDetected) 11/19/22 00:37 Ur Oxycodone Screen Not Detected (NotDetected) 11/19/22 00:37 Urine Methadone Screen Not Detected (NotDetected) 11/19/22 00:37 Ur Propoxyphene Screen Not Detected (NotDetected) 11/19/22 00:37 Acetaminophen <10.0 ug/mL 11/19/22 00:37 Ur Barbiturates Screen Not Detected (NotDetected) 11/19/22 00:37 Valproic Acid <10.0 ug/mL 11/19/22 16:36 U Tricyclic Antidepress Detected (NotDetected) H 11/19/22 00:37 Ur Phencyclidine Scrn Not Detected (NotDetected) 11/19/22 00:37 Ur Amphetamines Screen Not Detected (NotDetected) 11/19/22 00:37 U Methamphetamines Scrn Not Detected (NotDetected) 11/19/22 00:37 U Benzodiazepines Scrn Not Detected (NotDetected) 11/19/22 00:37 Urine Cocaine Screen Not Detected (NotDetected) 11/19/22 00:37 U Marijuana (THC) Screen Not Detected (NotDetected) 11/19/22 00:37 Serum Alcohol <10 mg/dL 11/19/22 00:37 Acetone, Qual Negative (Negative) 11/19/22 00:37 Coronavirus (PCR) Not Detected (Not Detectd) 11/20/22 14:26 11/21/22 11:31 IDENTIFYING DATA: This patient is a 37-year-old male, patient currently lives with his parents in a house, he collects Social Security disability. HISTORY OF PRESENT ILLNESS: Patient has a history of schizophrenia, type 1 di abetes, blindness, poor medication compliance and poor follow-up. The patient was recently discharged from the mental health unit on 10/28. At that time patient was transitioned onto long-acting injection. Patient was brought back in 4 psychiatric assessment due to concerns from [facility] and also his parents. Apparently patient was delusional, noncompliant with medications and psychotic/paranoid. Patient has a long history of schizophrenia and is currently being seen at [facility] for medication management. Patient was admitted involuntarily to the mental health unit yesterday and seen today by promotion writer. Patient was seen lying in his bed and agreeable to speak to promotion writer. He was fairly irritable today, hostile. She believes that he does not need to be in the hospital and does not need medications. 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 patient was delusional, loosely formed, illogical and tangential. he was noted to be talking to himself. he refused to speak to promotion writer about his medications and states that he does not need them, claims his sleep is "fine". He also claims that he is hearing voices however believes that they're fairly distant from him. He has fairly poor insight and judgment. denies any VH and denies any Si or HI at this time. Patient's UDS was positive for TCAs. PAST PSYCHIATRIC HISTORY: Patient has a a history of schizoaffective disorder. Patient is currently on Tegretol, Seroquel, Artane, latuda, was previously transitioned onto Perseris sq 90 mg last dose given furing his last hospitalization. he was last psychiatrically hospitalized 1 month ago on the mental health floor. Patient follows up at [facility]. Patient denies any history of suicide attempts in the past. Past Medical History: Diabetes Mellitus Additional Past Medical History / Comment(s): bilateral glaucoma, Tachycardia, diabetic gastropariesis, diabetic neuropathy, migraine headaches, peptic ulcer disease, retinal detachment status post multiple surgeries History of Any Multi-Drug Resistant Organisms: None Reported Past Surgical History: Pacemaker Additional Past Surgical History / Comment(s): eye surgery, EGDs Past Anesthesia/Blood Transfusion Reactions: No Reported Reaction Past Psychological History: Anxiety, Bipolar, Depression Smoking Status: Current every day smoker Past Alcohol Use History: None Reported Past Drug Use History: Marijuana ALLERGIES: as per EMR. CHEMICAL DEPENDENCY HISTORY: as per HPI. FAMILY PSYCHIATRIC/SUBSTANCE USE HISTORY: denies SOCIAL HISTORY: Patient was born and raised in [place], states that he lives with his parents, and a house, he is currently disabled collecting SSD, single, claims that he completed high school. Denies any legal history. MENTAL STATUS EXAM: General Appearance: Patient appears to be thin, long hair, stated age is alert, bizarre, paranoid. Patient appears to have fair hygiene and grooming wearing hospital gown with poor eye contact. Behavior: Patient is calmly lying in bed without any agitated behavior. Paranoid and bizarre. hostile/irritable. Speech: Patient's speech is fluent and nonpressured. concrete. Mood/Affect: Patient reports their mood is "not good", affect is congruent Suicidality/Homicidality: Patient denies having any suicidal or homicidal ideation intent or plan. Perceptions: Patient denies any visual hallucinations and denies any auditory hallucinations Though content/process: Delusional about his condition and need for help, loose associations, illogical. Bizarre. Memory and concentration: AOX2-3, grossly intact for the purposes of this session. Cannot spell "WORLD" backwards Judgment and insight: Chronically poor strengths/weakness: patient has good social support and stable housing. Patient also has poor insight and chronic mental illness. IMPRESSIONS: Schizoaffective disorder Type 1 diabetes Nicotine dependence non adherence to medication regimen PLAN: -Patient is admitted under involuntary status to MHU for stabilization of psychi atric symptoms and safety. Patient was previously on a deferral, a demand for hearing was submitted to the records, awaiting hearing date. -Medications : Invega 3 mg bid for psychosis. continue artane 2 mg twice a day for EPS prophylaxis. Discontinue Seroquel and replace with trazodone 100 mg qhs for sleep. -Ativan and Haldol PRN for agitation/aggression -Patient was informed of the risks, benefits and side effects of the medication -Internal Medicine consult to perform medical evaluation and physical. -NRT - nicotine dependence - on board for discharge planning. Encourage patient to participate in groups to work on coping skills. Will await court date. 11/21/22 11:40
[2022-11-21] MEDS: PALIPERIDONE 3 MG TAB.ER.24 PO SCH ×2 (12:30→20:26)
[2022-11-21] MEDS: LORazepam 1 MG TAB PO PRN ×2 (12:30→17:43)
[2022-11-21 12:37] LABS: Glucose,Whole Blood 107 mg/dL (70-110)
[2022-11-21] MEDS ORDERED: IBUPROFEN 600 MG TAB PO STA (12:50)
[2022-11-21 17:08] LABS: Glucose,Whole Blood 456 mg/dL (70-110)
[2022-11-21 18:08] LABS: Glucose,Whole Blood 369 mg/dL (70-110)
[2022-11-21 18:38] LABS: Glucose,Whole Blood 365 mg/dL (70-110)
[2022-11-21 19:36] LABS: Glucose,Whole Blood 314 mg/dL (70-110)
[2022-11-21] MEDS: TIOTROPIUM 2.5 MCG INHALER (MHU) INHALATION SCH (20:23)
[2022-11-21] MEDS: ATORVASTATIN 10 MG TAB PO SCH (20:24)
[2022-11-21] MEDS: INSULIN DETEMIR (LEVEMIR) 100 UNIT/ML SYR SQ SCH (20:25)
[2022-11-21] MEDS: MELATONIN 5 MG TABLET PO SCH (20:26)
[2022-11-21] MEDS: MONTELUKAST 10 MG TAB PO SCH (20:26)
[2022-11-21] MEDS: traZODone HCL 100 MG TAB PO SCH (20:27)
[2022-11-22 08:02] LABS: Glucose,Whole Blood 346 mg/dL (70-110)
[2022-11-22] MEDS: SYMBICORT 160-4.5 MCG INHALER INHALATION SCH ×2 (08:43→20:02)
[2022-11-22] MEDS: PANTOPRAZOLE 40 MG TABLET PO SCH ×2 (08:43→17:24)
[2022-11-22] MEDS: VALPROIC ACID ORAL SOLN 250 MG/5 ML CUP PO SCH ×2 (08:43→20:09)
[2022-11-22] MEDS: TRIHEXYPHENIDYL 2 MG TAB PO SCH ×2 (08:43→17:24)
[2022-11-22] MEDS: NICOTINE 14MG/24HR PATCH TRANSDERM SCH (08:43)
[2022-11-22] MEDS: PALIPERIDONE 3 MG TAB.ER.24 PO SCH (08:44)
[2022-11-22] MEDS: APIXABAN 5 MG TAB PO SCH ×2 (08:44→20:09)
[2022-11-22] MEDS: ATROPINE OPHTH SOLN 1% 5ML BTL LEFT EYE SCH ×2 (08:44→20:09)
[2022-11-22] MEDS: lisinopriL 10 MG TAB PO SCH (08:45)
[2022-11-22] MEDS: prednisoLONE ACETATE 1% OPHTH DROPS 5 ML BTL RIGHT EYE SCH ×2 (08:45→20:12)
[2022-11-22] MEDS: METOPROLOL TARTRATE 50 MG TAB PO SCH ×2 (08:45→20:10)
[2022-11-22] MEDS: INSULIN ASPART (NovoLOG) 100 UNIT/ML VIAL SQ SCH ×8 (08:47→20:28)
[2022-11-22] MEDS: LORazepam 1 MG TAB PO PRN ×3 (08:52→22:02)
[2022-11-22] MEDS: SUCRALFATE 1 GM TAB PO SCH ×2 (09:17→20:10)
[2022-11-22] MEDS ORDERED: IPRATROPIUM-ALBUTEROL 3 ML NEB INHALATION PRN (11:17)
--- NOTE | 2022-11-22 11:22 | P.PN ---
Progress Note - Text Progress Note Date: 11/22/22 Interval history: Patient was seen today laying in bed and was agreeable to seek a resume writer. Shannon ent continues to be fairly irritable, he states that he is feeling anxious and depressed. He appeared to be fairly concrete, labile in his affect. He claims that he does not know how long he slept last night however did not give any complaints. He continues to display very poor insight and judgment. He claims that he already "went to court". He states that his mortician investigator "settled everything". He believes that his mortician investigator work for [employer]. He was less focused on discharge today. poor impulse control. has been taking his medications. denies any changes to his appetite. This time he is denying any suicidal or homicidal ideations and plan. Denying any auditory or visual hallucinations. Status examination: General Appearance: Patient appears to be thin, long hair, stated age is alert, bizarre,. Patient appears to have fair hygiene and grooming wearing hospital gown with poor eye contact. Behavior: Patient is calmly lying in bed without any agitated behavior. Paranoid and bizarre. hostile/irritable, proving mildly Speech: Patient's speech is fluent and nonpressured. concrete. Mood/Affect: Patient reports their mood is "anxious", affect is congruent and labile at times. Suicidality/Homicidality: Patient denies having any suicidal or homicidal ideation intent or plan. Perceptions: Patient denies any visual hallucinations and denies any auditory hallucinations Though content/process: Delusional about his condition and need for help, loose associations, illogical. Bizarre, improving mildly Memory and concentration: AOX2-3, grossly intact for the purposes of this session Judgment and insight: Chronically poor IMPRESSIONS: Schizoaffective disorder Type 1 diabetes Nicotine dependence non adherence to medication regimen PLAN: -Patient is admitted under involuntary status to MHU for stabilization of psychiatric symptoms and safety. Patient was previously on a deferral, a demand for hearing was submitted to the records, awaiting hearing date. -Medications : change Invega 6 mg qhs for psychosis/mood stabilization. will need to transition patient onto LUGO to ensure compliance. continue artane 2 mg twice a day for EPS prophylaxis. continue trazodone 100 mg qhs for sleep. melatonin for sleep. increased depakene 500 mg bid for mood stabilization/agitation. consider antidepressant if patient continues having increased anxiety/mood issues -Ativan and Haldol PRN for agitation/aggression -NRT - nicotine dependence -SW on board for discharge planning. Encourage patient to participate in groups to work on coping skills. Will await court date.
[2022-11-22 11:23] LABS: Glucose,Whole Blood 267 mg/dL (70-110)
[2022-11-22 12:54] LABS: Glucose,Whole Blood 196 mg/dL (70-110)
[2022-11-22 17:29] LABS: Glucose,Whole Blood 276 mg/dL (70-110)
[2022-11-22 19:45] LABS: Glucose,Whole Blood 457 mg/dL (70-110)
[2022-11-22] MEDS: TIOTROPIUM 2.5 MCG INHALER (MHU) INHALATION SCH (20:08)
[2022-11-22] MEDS: INSULIN DETEMIR (LEVEMIR) 100 UNIT/ML SYR SQ SCH (20:09)
[2022-11-22] MEDS: MELATONIN 5 MG TABLET PO SCH (20:10)
[2022-11-22] MEDS: PALIPERIDONE 6 MG TAB.ER.24 PO SCH (20:10)
[2022-11-22] MEDS: ATORVASTATIN 10 MG TAB PO SCH (20:10)
[2022-11-22] MEDS: traZODone HCL 100 MG TAB PO SCH (20:10)
[2022-11-22] MEDS: MONTELUKAST 10 MG TAB PO SCH (20:10)
[2022-11-22 21:36] LABS: African American GFR (CKD) >90 (>60 ml/min/1.73 sqM); Anion Gap 11 mmol/L; Blood Urea Nitrogen 17 mg/dL (9-20); Calcium 9.5 mg/dL (8.4-10.2); Carbon Dioxide 23 mmol/L (22-30); Chloride 102 mmol/L (98-107); Glucose 366 mg/dL (74-99); Non-African American GFR(CKD) >90 (>60 ml/min/1.73 sqM); Potassium 4.3 mmol/L (3.5-5.1); Sodium 136 mmol/L (137-145)
[2022-11-22 22:00] LABS: Glucose,Whole Blood 239 mg/dL (70-110)
[2022-11-22] MEDS: haloperidoL 5 MG TAB PO PRN (22:02)
[2022-11-23 05:42] LABS: Glucose,Whole Blood 83 mg/dL (70-110)
[2022-11-23 07:53] LABS: Glucose,Whole Blood 130 mg/dL (70-110)
[2022-11-23] MEDS: INSULIN ASPART (NovoLOG) 100 UNIT/ML VIAL SQ SCH ×7 (07:53→21:35)
[2022-11-23] MEDS: NICOTINE 14MG/24HR PATCH TRANSDERM SCH (08:05)
[2022-11-23] MEDS: VALPROIC ACID ORAL SOLN 250 MG/5 ML CUP PO SCH ×2 (08:06→20:22)
[2022-11-23] MEDS: prednisoLONE ACETATE 1% OPHTH DROPS 5 ML BTL RIGHT EYE SCH ×2 (08:08→21:01)
[2022-11-23] MEDS: ATROPINE OPHTH SOLN 1% 5ML BTL LEFT EYE SCH ×2 (08:09→21:01)
[2022-11-23] MEDS: TRIHEXYPHENIDYL 2 MG TAB PO SCH ×2 (08:09→17:50)
[2022-11-23] MEDS: METOPROLOL TARTRATE 50 MG TAB PO SCH ×2 (08:09→21:00)
[2022-11-23] MEDS: SUCRALFATE 1 GM TAB PO SCH ×2 (08:09→21:00)
[2022-11-23] MEDS: APIXABAN 5 MG TAB PO SCH ×2 (08:09→21:00)
[2022-11-23] MEDS: PANTOPRAZOLE 40 MG TABLET PO SCH ×2 (08:10→17:49)
[2022-11-23] MEDS: lisinopriL 10 MG TAB PO SCH (08:10)
[2022-11-23] MEDS: SYMBICORT 160-4.5 MCG INHALER INHALATION SCH ×2 (08:14→20:59)
--- NOTE | 2022-11-23 12:09 | P.PN ---
Progress Note - Text Progress Note Date: 11/23/22 Interval history: Patient was seen today sitting in bed and was agreeable to seek a rewriter. Shannon ent continues to be fairly irritable, however this is improving. He claims that his anxiety is improved since yesterday and however states that he is still feeling mildly depressed. He claims that he did not believe that he needed his diabetes medications and states that "God can heal it". He did claim that he does need his psychiatric medications however. He states that at nighttime he was having "hallucinations" and believes that the unit is haunted. He continues to display very poor insight and judgment. He claims that he already "went to court". He has poor impulse control. has been taking his medications. denies any changes to his appetite. This time he is denying any suicidal or homicidal ideations and plan. Denying any auditory or visual hallucinations. Status examination: General Appearance: Patient appears to be thin, long hair, stated age is alert, bizarre,. Patient appears to have fair hygiene and grooming wearing hospital gown with poor eye contact. Behavior: Patient is calmly lying in bed without any agitated behavior. less bizarre. less irritable, proving mildly Speech: Patient's speech is fluent and nonpressured. concrete. Mood/Affect: Patient reports their mood is "the same", affect is congruent and constricted Suicidality/Homicidality: Patient denies having any suicidal or homicidal ideation intent or plan. Perceptions: Patient denies any visual hallucinations and denies any auditory hallucinations Though content/process: Delusional about his condition and need for help, loose associations, illogical. Bizarre, improving mildly Memory and concentration: AOX2-3, grossly intact for the purposes of this session Judgment and insight: Chronically poor IMPRESSIONS: Schizoaffective disorder Type 1 diabetes Nicotine dependence non adherence to medication regimen PLAN: -Patient is admitted under involuntary status to MHU for stabilization of psychiatric symptoms and safety. Patient was previously on a deferral, a demand for hearing was submitted to the records, awaiting hearing date. -Medications : Increase Invega 6 mg qhs +3 mg daily for psychosis/mood stabilization. will need to transition patient onto LUGO to ensure compliance. c ontinue artane 2 mg twice a day for EPS prophylaxis. continue trazodone 100 mg qhs for sleep. melatonin for sleep. depakene 500 mg bid for mood stabilization/agitation. consider antidepressant if patient continues having increased anxiety/mood issues -Ativan and Haldol PRN for agitation/aggression -NRT - nicotine dependence -SW on board for discharge planning. Encourage patient to participate in groups to work on coping skills. Will await court date.
[2022-11-23 12:38] LABS: Glucose,Whole Blood 192 mg/dL (70-110)
[2022-11-23] MEDS: ACETAMINOPHEN TAB 325 MG TAB PO PRN (12:39)
[2022-11-23] MEDS: LORazepam 1 MG TAB PO PRN ×2 (12:39→20:22)
[2022-11-23] MEDS: haloperidoL 5 MG TAB PO PRN (14:55)
[2022-11-23 17:38] LABS: Glucose,Whole Blood >600 mg/dL (70-110)
[2022-11-23 17:38] LABS: Glucose,Whole Blood 589 mg/dL (70-110)
[2022-11-23 20:12] LABS: Glucose,Whole Blood 465 mg/dL (70-110)
[2022-11-23] MEDS: TIOTROPIUM 2.5 MCG INHALER (MHU) INHALATION SCH (20:59)
[2022-11-23] MEDS: MONTELUKAST 10 MG TAB PO SCH (20:59)
[2022-11-23] MEDS: traZODone HCL 100 MG TAB PO SCH (21:00)
[2022-11-23] MEDS: MELATONIN 5 MG TABLET PO SCH (21:00)
[2022-11-23] MEDS: PALIPERIDONE 6 MG TAB.ER.24 PO SCH (21:00)
[2022-11-23] MEDS: ATORVASTATIN 10 MG TAB PO SCH (21:00)
[2022-11-23] MEDS: INSULIN DETEMIR (LEVEMIR) 100 UNIT/ML SYR SQ SCH (21:01)
[2022-11-23 21:33] LABS: Glucose,Whole Blood 377 mg/dL (70-110)
[2022-11-24 07:56] LABS: Glucose,Whole Blood 60 mg/dL (70-110)
[2022-11-24] MEDS: INSULIN ASPART (NovoLOG) 100 UNIT/ML VIAL SQ SCH ×7 (07:59→20:15)
[2022-11-24] MEDS: PANTOPRAZOLE 40 MG TABLET PO SCH ×2 (08:01→17:23)
[2022-11-24] MEDS: TRIHEXYPHENIDYL 2 MG TAB PO SCH ×2 (08:01→17:24)
[2022-11-24] MEDS: SYMBICORT 160-4.5 MCG INHALER INHALATION SCH ×2 (08:01→20:13)
[2022-11-24] MEDS: prednisoLONE ACETATE 1% OPHTH DROPS 5 ML BTL RIGHT EYE SCH ×2 (08:02→20:14)
[2022-11-24] MEDS: ATROPINE OPHTH SOLN 1% 5ML BTL LEFT EYE SCH ×2 (08:02→20:14)
[2022-11-24 08:22] LABS: Glucose,Whole Blood 143 mg/dL (70-110)
[2022-11-24] MEDS: lisinopriL 10 MG TAB PO SCH (08:47)
[2022-11-24] MEDS: APIXABAN 5 MG TAB PO SCH ×2 (08:47→20:15)
[2022-11-24] MEDS: PALIPERIDONE 3 MG TAB.ER.24 PO SCH (08:48)
[2022-11-24] MEDS: METOPROLOL TARTRATE 50 MG TAB PO SCH ×2 (08:48→20:16)
[2022-11-24] MEDS: VALPROIC ACID ORAL SOLN 250 MG/5 ML CUP PO SCH ×2 (08:48→20:14)
[2022-11-24] MEDS: SUCRALFATE 1 GM TAB PO SCH ×2 (08:48→20:16)
[2022-11-24] MEDS: NICOTINE 14MG/24HR PATCH TRANSDERM SCH (08:50)
[2022-11-24] MEDS: LORazepam 1 MG TAB PO PRN ×2 (08:52→17:23)
[2022-11-24] MEDS ORDERED: PALIPERIDONE IM 234 MG/1.5 ML SYG IM STA (11:13)
--- NOTE | 2022-11-24 11:13 | P.PN ---
Progress Note - Text Progress Note Date: 11/24/22 Interval history: Patient was seen today sitting in the wheelchair at a desk in the hallway. He was agreeable to speak to data analyst report writer. He appears to be less irritable today, less focused on delusions. He was more directable today during conversation. Continues to be fairly concrete. He continues to minimize his need for diabetes medications continues to have fairly poor insight and judgment. We spoke about the benefits of the long-acting injection and patient was agreeable to be switched on to Invega Sustenna today. We also spoke about court and he acknowledges that it will be on Sunday. And that he slept fairly lastly. He has poor impulse control. has been taking his medications. denies any changes to his appetite. He is denying any suicidal or homicidal ideations and plan. Denying any auditory or visual hallucinations. Status examination: General Appearance: Patient appears to be thin, long hair, stated age is alert, or directable today. Patient appears to have fair hygiene and grooming wearing hospital gown with poor eye contact. Behavior: Patient is calmly lying in bed without any agitated behavior. less bizarre. less irritable, proving mildly Speech: Patient's speech is fluent and nonpressured. concrete. Mood/Affect: Patient reports their mood is "a little better", affect is congruent and constricted Suicidality/Homicidality: Patient denies having any suicidal or homicidal ideation intent or plan. Perceptions: Patient denies any visual hallucinations and denies any auditory hallucinations Though content/process: Delusional about his condition and need for help, loose associations, less illogical. Bizarre, improving mildly Memory and concentration: AOX2-3, grossly intact for the purposes of this session Judgment and insight: Chronically poor, improving mildly IMPRESSIONS: Schizoaffective disorder Type 1 diabetes Nicotine dependence non adherence to medication regimen PLAN: -Patient is admitted under involuntary status to [facility] for stabilization of psychiatric symptoms and safety. Patient was previously on a deferral, a demand for hearing was submitted to the records, awaiting hearing date. -Medications : Invega 6 mg qhs +3 mg daily for psychosis/mood stabilization. patient is agreeable to take Invega sustenna 234 mg IM loading dose today. continue artane 2 mg twice a day for EPS prophylaxis. continue trazodone 100 mg qhs for sleep. melatonin for sleep. depakene 500 mg bid for mood stabilization/agitation. consider antidepressant if patient continues having increased anxiety/mood issues -Ativan and Haldol PRN for agitation/aggression -NRT - nicotine dependence -SW on board for discharge planning. Encourage patient to participate in groups to work on coping skills. court date set for [address]. patient will need to be transitoned onto [facility] prior to d/c.
[2022-11-24] MEDS: MAG HYDROX/AL HYDROX/SIMETH 30 ML CUP PO PRN (11:40)
[2022-11-24 12:42] LABS: Glucose,Whole Blood 306 mg/dL (70-110)
[2022-11-24 17:51] LABS: Glucose,Whole Blood 241 mg/dL (70-110)
[2022-11-24 19:54] LABS: Glucose,Whole Blood 236 mg/dL (70-110)
[2022-11-24] MEDS: TIOTROPIUM 2.5 MCG INHALER (MHU) INHALATION SCH (20:14)
[2022-11-24] MEDS: ATORVASTATIN 10 MG TAB PO SCH (20:15)
[2022-11-24] MEDS: INSULIN DETEMIR (LEVEMIR) 100 UNIT/ML SYR SQ SCH (20:15)
[2022-11-24] MEDS: PALIPERIDONE 6 MG TAB.ER.24 PO SCH (20:16)
[2022-11-24] MEDS: traZODone HCL 100 MG TAB PO SCH (20:16)
[2022-11-24] MEDS: MONTELUKAST 10 MG TAB PO SCH (20:16)
[2022-11-24] MEDS: MELATONIN 5 MG TABLET PO SCH (20:16)
[2022-11-24] MEDS: ACETAMINOPHEN TAB 325 MG TAB PO PRN (21:29)
[2022-11-25 05:20] LABS: Glucose,Whole Blood 151 mg/dL (70-110)
[2022-11-25 07:56] LABS: Glucose,Whole Blood 127 mg/dL (70-110)
[2022-11-25] MEDS: INSULIN ASPART (NovoLOG) 100 UNIT/ML VIAL SQ SCH ×9 (08:42→20:31)
[2022-11-25] MEDS: prednisoLONE ACETATE 1% OPHTH DROPS 5 ML BTL RIGHT EYE SCH ×2 (09:10→21:34)
[2022-11-25] MEDS: NICOTINE 14MG/24HR PATCH TRANSDERM SCH (09:10)
[2022-11-25] MEDS: VALPROIC ACID ORAL SOLN 250 MG/5 ML CUP PO SCH ×2 (09:11→21:05)
[2022-11-25] MEDS: ATROPINE OPHTH SOLN 1% 5ML BTL LEFT EYE SCH ×2 (09:11→21:34)
[2022-11-25] MEDS: PANTOPRAZOLE 40 MG TABLET PO SCH ×2 (09:12→17:53)
[2022-11-25] MEDS: SUCRALFATE 1 GM TAB PO SCH ×2 (09:12→21:11)
[2022-11-25] MEDS: METOPROLOL TARTRATE 50 MG TAB PO SCH ×2 (09:12→21:13)
[2022-11-25] MEDS: SYMBICORT 160-4.5 MCG INHALER INHALATION SCH ×2 (09:12→21:33)
[2022-11-25] MEDS: TRIHEXYPHENIDYL 2 MG TAB PO SCH ×2 (09:12→17:53)
[2022-11-25] MEDS: APIXABAN 5 MG TAB PO SCH ×2 (09:12→21:11)
[2022-11-25] MEDS: PALIPERIDONE 3 MG TAB.ER.24 PO SCH (09:12)
[2022-11-25] MEDS: lisinopriL 10 MG TAB PO SCH (09:12)
[2022-11-25] MEDS: ACETAMINOPHEN TAB 325 MG TAB PO PRN (09:19)
[2022-11-25 11:01] LABS: Glucose,Whole Blood 286 mg/dL (70-110)
--- NOTE | 2022-11-25 11:28 | P.PN ---
Progress Note - Text Progress Note Date: 11/25/22 Interval history: Patient was seen sitting in the lounge and was directable and agreeable to speak with contract writer. Patient claims that he is still feeling some anxiety during the day, he states that Valium has helped him in the past however was open to try other medications for anxiety. Claims that he is feeling less paranoid at this time, was not endorsing any delusions today. He spoke about the injection given to him yesterday and claimed that he tolerated it well as he received it in the arm and not his abdomen. He claims that his mood is fair at this time, denying any depression. He asked questions about his potential discharge. Claims that he is eating fairly at this time. At this time patient denies any suicidal or homicidal ideations intent or plan. Denies any Auditory or visual hallucinations. Patient denies any side effects from the medications and has been compliant with meds. Mental status exam: General Appearance: Patient appears to be thin, sitting in the wheelchair, stated age is alert, directable, and attempts to be cooperative. Behavior: No agitated behavior. Patient is calm and directable Speech: Patient's speech is fluent and nonpressured. Mood/Affect: Mood is improving mildly, affect is congruent and constricted. Suicidality/Homicidality: Patient denies having any suicidal or homicidal ideation intent or plan. Perceptions: Patient denies any auditory or visual hallucinations. Though content/process: There is no evidence of any delusional thought content and thought process is linear and goal-directed. Fairly concrete. Not endorsing paranoia today. Memory and concentration: AOX3, grossly intact for the purposes of this session Judgment and insight: improving mildly Assessment/Plan: Continue with current diagnosis. Patient continues to meet criteria for inpatient psychiatric admission for symptom stabilization and safety.Patient will be maintained on current psychotropic medication regimen, patient received the Invega loading dose on 11/24 and tolerated it well, will continue decreasing po invega and will give next dose of LUGO on sunday. start buspar 15 mg bid for anxiety, increased trazodone to 150 mg qhs for insomnia. Monitor for medication compliance and for any psychotropic medication side effects. Will continue to monitor ongoing response to treatment. Encouraged participation in milieu.
[2022-11-25 12:50] LABS: Glucose,Whole Blood 312 mg/dL (70-110)
[2022-11-25 17:48] LABS: Glucose,Whole Blood 240 mg/dL (70-110)
[2022-11-25] MEDS: LORazepam 1 MG TAB PO PRN (17:53)
[2022-11-25 20:15] LABS: Glucose,Whole Blood 340 mg/dL (70-110)
[2022-11-25] MEDS: PALIPERIDONE 6 MG TAB.ER.24 PO SCH (21:08)
[2022-11-25] MEDS: busPIRone HCl 5 MG TAB PO SCH (21:09)
[2022-11-25] MEDS: MELATONIN 5 MG TABLET PO SCH (21:11)
[2022-11-25] MEDS: MONTELUKAST 10 MG TAB PO SCH (21:12)
[2022-11-25] MEDS: ATORVASTATIN 10 MG TAB PO SCH (21:13)
[2022-11-25] MEDS: traZODone HCL 50 MG TAB PO SCH (21:13)
[2022-11-25] MEDS: INSULIN DETEMIR (LEVEMIR) 100 UNIT/ML SYR SQ SCH (21:21)
[2022-11-25] MEDS: TIOTROPIUM 2.5 MCG INHALER (MHU) INHALATION SCH (21:33)
[2022-11-26 05:13] LABS: Glucose,Whole Blood 140 mg/dL (70-110)
[2022-11-26 07:53] LABS: Glucose,Whole Blood 122 mg/dL (70-110)
[2022-11-26] MEDS: INSULIN ASPART (NovoLOG) 100 UNIT/ML VIAL SQ SCH ×7 (08:16→20:15)
[2022-11-26] MEDS: TRIHEXYPHENIDYL 2 MG TAB PO SCH (08:17)
[2022-11-26] MEDS: PANTOPRAZOLE 40 MG TABLET PO SCH ×2 (08:17→18:03)
[2022-11-26] MEDS: NICOTINE 14MG/24HR PATCH TRANSDERM SCH (08:18)
[2022-11-26] MEDS: SYMBICORT 160-4.5 MCG INHALER INHALATION SCH ×2 (08:18→20:13)
[2022-11-26] MEDS: APIXABAN 5 MG TAB PO SCH ×2 (08:19→20:14)
[2022-11-26] MEDS: ATROPINE OPHTH SOLN 1% 5ML BTL LEFT EYE SCH ×2 (08:20→20:14)
[2022-11-26] MEDS: METOPROLOL TARTRATE 50 MG TAB PO SCH ×2 (08:21→20:15)
[2022-11-26] MEDS: busPIRone HCl 5 MG TAB PO SCH (08:21)
[2022-11-26] MEDS: lisinopriL 10 MG TAB PO SCH (08:21)
[2022-11-26] MEDS: SUCRALFATE 1 GM TAB PO SCH ×2 (08:21→20:14)
[2022-11-26] MEDS: prednisoLONE ACETATE 1% OPHTH DROPS 5 ML BTL RIGHT EYE SCH ×2 (08:22→20:14)
[2022-11-26] MEDS: VALPROIC ACID ORAL SOLN 250 MG/5 ML CUP PO SCH ×2 (08:22→20:14)
[2022-11-26] MEDS ORDERED: TRIHEXYPHENIDYL 2 MG TAB PO PRN (10:59)
--- NOTE | 2022-11-26 11:07 | P.PN ---
Progress Note - Text Progress Note Date: 11/26/22 Interval history: Patient was seen lying in bed today this morning after eating breakfast. He claims that his mood is fair at this time, denying any depression. He was fairly concrete today, not endorsing any paranoia or delusions. He was asking about when he can get discharged. he has mildly improving insight at this time. Claims that he is eating fairly at this time. At this time patient denies any suicidal or homicidal ideations intent or plan. Denies any Auditory or visual hallucinations. Patient denies any side effects from the medications and has been compliant with meds. Mental status exam: General Appearance: Patient appears to be thin, sitting in the wheelchair, stated age is alert, directable, and attempts to be cooperative. Behavior: No agitated behavior. Patient is calm and directable Speech: Patient's speech is fluent and nonpressured. Mood/Affect: Mood is improving mildly, affect is congruent and constricted. Suicidality/Homicidality: Patient denies having any suicidal or homicidal ideation intent or plan. Perceptions: Patient denies any auditory or visual hallucinations. Though content/process: There is no evidence of any delusional thought content and thought process is linear and goal-directed. Fairly concrete. Not endorsing paranoia today. Memory and concentration: AOX3, grossly intact for the purposes of this session Judgment and insight: improving mildly Assessment/Plan: Continue with current diagnosis. Patient continues to meet criteria for inpatient psychiatric admission for symptom stabilization and safety.Patient will be maintained on current psychotropic medication regimen, patient received the Invega loading dose on 11/24 and tolerated it well, will continue decreasing po invega and will give next dose of LUGO on sunday. increase buspar 20 mg bid for anxiety, trazodone 150 mg qhs for insomnia, changed artane to prn dosing for tremors/eps. Monitor for medication compliance and for any psychotropic medication side effects. Will continue to monitor ongoing response to treatment. Encouraged participation in milieu. possible dishcarge sunday-sun back home once patient receives his second LUGO dose.
[2022-11-26 13:07] LABS: Glucose,Whole Blood 453 mg/dL (70-110)
[2022-11-26 16:13] LABS: Glucose,Whole Blood 292 mg/dL (70-110)
[2022-11-26] MEDS: cloNIDine 0.2 MG/24HR PATCH TRANSDERM SCH (16:21)
[2022-11-26] MEDS: LORazepam 1 MG TAB PO PRN (16:22)
[2022-11-26 17:54] LABS: Glucose,Whole Blood 304 mg/dL (70-110)
[2022-11-26 20:05] LABS: Glucose,Whole Blood 212 mg/dL (70-110)
[2022-11-26] MEDS: TIOTROPIUM 2.5 MCG INHALER (MHU) INHALATION SCH (20:13)
[2022-11-26] MEDS: traZODone HCL 50 MG TAB PO SCH (20:14)
[2022-11-26] MEDS: ATORVASTATIN 10 MG TAB PO SCH (20:15)
[2022-11-26] MEDS: MELATONIN 5 MG TABLET PO SCH (20:15)
[2022-11-26] MEDS: MONTELUKAST 10 MG TAB PO SCH (20:15)
[2022-11-26] MEDS: busPIRone HCl 10 MG TAB PO SCH (20:15)
[2022-11-26] MEDS: INSULIN DETEMIR (LEVEMIR) 100 UNIT/ML SYR SQ SCH (20:17)
[2022-11-26] MEDS: PALIPERIDONE 6 MG TAB.ER.24 PO SCH (20:17)
[2022-11-27 07:11] VITALS: RESP 14
[2022-11-27 07:49] LABS: Glucose,Whole Blood 104 mg/dL (70-110)
[2022-11-27] MEDS: INSULIN ASPART (NovoLOG) 100 UNIT/ML VIAL SQ SCH ×7 (08:00→20:52)
[2022-11-27] MEDS: ATROPINE OPHTH SOLN 1% 5ML BTL LEFT EYE SCH ×2 (08:20→20:44)
[2022-11-27] MEDS: NICOTINE 14MG/24HR PATCH TRANSDERM SCH (08:21)
[2022-11-27] MEDS: prednisoLONE ACETATE 1% OPHTH DROPS 5 ML BTL RIGHT EYE SCH ×2 (08:21→20:45)
[2022-11-27] MEDS: VALPROIC ACID ORAL SOLN 250 MG/5 ML CUP PO SCH ×3 (08:23→20:46)
[2022-11-27] MEDS: busPIRone HCl 10 MG TAB PO SCH ×2 (08:24→20:46)
[2022-11-27] MEDS: SUCRALFATE 1 GM TAB PO SCH ×2 (08:24→20:45)
[2022-11-27] MEDS: lisinopriL 10 MG TAB PO SCH (08:24)
[2022-11-27] MEDS: PANTOPRAZOLE 40 MG TABLET PO SCH ×2 (08:24→17:49)
[2022-11-27] MEDS: APIXABAN 5 MG TAB PO SCH ×2 (08:24→20:46)
[2022-11-27] MEDS: METOPROLOL TARTRATE 50 MG TAB PO SCH ×2 (08:25→20:46)
[2022-11-27] MEDS: SYMBICORT 160-4.5 MCG INHALER INHALATION SCH ×2 (08:30→20:50)
[2022-11-27 11:06] LABS: Glucose,Whole Blood 186 mg/dL (70-110)
[2022-11-27] MEDS: MAG HYDROX/AL HYDROX/SIMETH 30 ML CUP PO PRN (11:23)
[2022-11-27] MEDS ORDERED: PALIPERIDONE IM 156 MG/ML SYG IM ONE (12:00)
--- NOTE | 2022-11-27 12:03 | P.PN ---
Progress Note - Text Progress Note Date: 11/27/22 Interval history: Patient was seen lying in bed today this morning after eating breakfast. He claims that his mood is fair at this time, denying any depression. He was fairly concrete today, not endorsing any paranoia or delusions. He was asking about when he can get discharged. he has mildly improving insight at this time. Claims that he is eating fairly at this time. At this time patient denies any suicidal or homicidal ideations intent or plan. Denies any Auditory or visual hallucinations. Patient denies any side effects from the medications and has been compliant with meds. Mental status exam: General Appearance: Patient appears to be thin, laying on his bed, stated age is alert, directable, and attempts to be cooperative. Behavior: No agitated behavior. Patient is calm and directable Speech: Patient's speech is fluent and nonpressured. Mood/Affect: Mood is improving mildly, affect is congruent and constricted. Suicidality/Homicidality: Patient denies having any suicidal or homicidal ideation intent or plan. Perceptions: Patient denies any auditory or visual hallucinations. Though content/process: There is no evidence of any delusional thought content and thought process is linear and goal-directed. Fairly concrete. Not endorsing paranoia today. Memory and concentration: AOX3, grossly intact for the purposes of this session Judgment and insight: improving mildly Assessment/Plan: Continue with current diagnosis. Patient continues to meet criteria for inpatient psychiatric admission for symptom stabilization and safety.Patient will be maintained on current psychotropic medication regimen, patient received the Invega loading dose on 11/24 and tolerated it well, will continue decreasing po invega and have it d/c tomorrow, will give next dose of LUGO tomorrow 156 mg IM. buspar 20 mg bid for anxiety, trazodone 150 mg qhs for insomnia, artane to prn dosing for tremors/eps. Monitor for medication compliance and for any psychotropic medication side effects. Will continue to monitor ongoing response to treatment. Encouraged participation in milieu. possible dishcarge wed back home once patient receives his second LUGO dose and has his full court hearing date on sunday.
[2022-11-27 12:44] LABS: Glucose,Whole Blood 201 mg/dL (70-110)
[2022-11-27] MEDS ORDERED: LOPERAMIDE 2 MG CAP PO STA (15:54)
[2022-11-27 17:02] LABS: HGB 12.2 gm/dL (13.0-17.5); MCHC 33.9 g/dL (31.0-37.0); MCV 88.7 fL (80.0-100.0); Mean Platelet Volume 7.1; Platelet Count 371 k/uL (150-450); RBC 4.05 m/uL (4.30-5.90); RDW 12.8 % (11.5-15.5); WBC 10.3 k/uL (3.8-10.6)
[2022-11-27 17:13] LABS: African American GFR (CKD) >90 (>60 ml/min/1.73 sqM); Anion Gap 11 mmol/L; Blood Urea Nitrogen 11 mg/dL (9-20); Calcium 9.4 mg/dL (8.4-10.2); Carbon Dioxide 25 mmol/L (22-30); Chloride 105 mmol/L (98-107); Glucose 182 mg/dL (74-99); Non-African American GFR(CKD) >90 (>60 ml/min/1.73 sqM); Potassium 4.3 mmol/L (3.5-5.1); Sodium 141 mmol/L (137-145)
[2022-11-27 17:44] LABS: Glucose,Whole Blood 244 mg/dL (70-110)
[2022-11-27 20:00] LABS: Glucose,Whole Blood 306 mg/dL (70-110)
[2022-11-27] MEDS: MELATONIN 5 MG TABLET PO SCH (20:45)
[2022-11-27] MEDS: MONTELUKAST 10 MG TAB PO SCH (20:46)
[2022-11-27] MEDS: ATORVASTATIN 10 MG TAB PO SCH (20:46)
[2022-11-27] MEDS: traZODone HCL 50 MG TAB PO SCH (20:47)
[2022-11-27] MEDS: TIOTROPIUM 2.5 MCG INHALER (MHU) INHALATION SCH (20:50)
[2022-11-27] MEDS ORDERED: PALIPERIDONE 6 MG TAB.ER.24 PO ONE (21:00)
[2022-11-27] MEDS: INSULIN DETEMIR (LEVEMIR) 100 UNIT/ML SYR SQ SCH (21:05)
[2022-11-28 06:28] LABS: Glucose,Whole Blood 149 mg/dL (70-110)
[2022-11-28 08:02] LABS: Glucose,Whole Blood 92 mg/dL (70-110)
[2022-11-28] MEDS: ATROPINE OPHTH SOLN 1% 5ML BTL LEFT EYE SCH ×2 (08:03→21:26)
[2022-11-28] MEDS: prednisoLONE ACETATE 1% OPHTH DROPS 5 ML BTL RIGHT EYE SCH ×2 (08:03→21:26)
[2022-11-28] MEDS: METOPROLOL TARTRATE 50 MG TAB PO SCH ×2 (08:04→21:27)
[2022-11-28] MEDS: SUCRALFATE 1 GM TAB PO SCH ×2 (08:04→21:27)
[2022-11-28] MEDS: VALPROIC ACID ORAL SOLN 250 MG/5 ML CUP PO SCH (08:04)
[2022-11-28] MEDS: busPIRone HCl 10 MG TAB PO SCH ×2 (08:04→21:27)
[2022-11-28] MEDS: APIXABAN 5 MG TAB PO SCH ×2 (08:04→21:27)
[2022-11-28] MEDS: INSULIN ASPART (NovoLOG) 100 UNIT/ML VIAL SQ SCH ×7 (08:04→21:27)
[2022-11-28] MEDS: lisinopriL 10 MG TAB PO SCH (08:04)
[2022-11-28] MEDS: PANTOPRAZOLE 40 MG TABLET PO SCH ×2 (08:04→17:54)
[2022-11-28] MEDS: NICOTINE 14MG/24HR PATCH TRANSDERM SCH (08:04)
[2022-11-28] MEDS: SYMBICORT 160-4.5 MCG INHALER INHALATION SCH ×2 (08:05→21:16)
[2022-11-28] MEDS: LORazepam 1 MG TAB PO PRN (08:07)
--- NOTE | 2022-11-28 11:24 | P.PN ---
Progress Note - Text Progress Note Date: 11/28/22 Interval history: Patient was seen in his wheelchair near the nurse's desk today. Patient was agreeable to speak directly today. He claims that he is trying to get more water today and honest if he could have flavored water. He states that he is doing fair today, denied any problems with anxiety or his mood. He states that he does not like taking the Depakene syrup and we spoke about transitioning to Depakote pills which she is okay with trying today. He states that he slept fairly last night. He is not reporting any delusions or paranoia at this time. We spoke about the second dose of the Invega Sustenna which will be due tomorrow as he refused that yesterday. We also spoke about court tomorrow morning which is okay with. Claims that he is eating fairly at this time. At this time patient denies any suicidal or homicidal ideations intent or plan. Denies any Auditory or visual hallucinations. Patient denies any side effects from the medications and has been compliant with meds. Mental status exam: General Appearance: Patient appears to be thin, sitting in his wheelchair, stated age is alert, directable, and attempts to be cooperative. Behavior: No agitated behavior. Patient is calm and directable Speech: Patient's speech is fluent and nonpressured. Mood/Affect: Mood is improving mildly, affect is congruent and constricted. Suicidality/Homicidality: Patient denies having any suicidal or homicidal ideation intent or plan. Perceptions: Patient denies any auditory or visual hallucinations. Though content/process: There is no evidence of any delusional thought content and thought process is linear and goal-directed. Fairly concrete. Memory and concentration: AOX3, grossly intact for the purposes of this session Judgment and insight: chronically poor, improving mildly Assessment/Plan: Continue with current diagnosis. Patient continues to meet criteria for inpatient psychiatric admission for symptom stabilization and safety.Patient will be maintained on current psychotropic medication regimen, patient received the Invega loading dose on 11/24 and tolerated it well, will d/c po invega and give next dose of LUGO tomorrow 156 mg IM in the am. buspar 20 mg bid for anxiety, trazodone 150 mg qhs for insomnia, artane to prn dosing for tremors/eps, changed depakene formulation to depakote pills for today. Monitor for medication compliance and for any psychotropic medication side effects. Will continue to monitor ongoing response to treatment. Encouraged participation in milieu. possible discharge tomorrow back home once patient receives his second LUGO dose and has his full court hearing date on sunday.
[2022-11-28 13:00] LABS: Glucose,Whole Blood 159 mg/dL (70-110)
[2022-11-28 17:53] LABS: Glucose,Whole Blood 489 mg/dL (70-110)
[2022-11-28 20:05] LABS: Glucose,Whole Blood 226 mg/dL (70-110)
[2022-11-28] MEDS: TIOTROPIUM 2.5 MCG INHALER (MHU) INHALATION SCH (21:16)
[2022-11-28] MEDS: traZODone HCL 50 MG TAB PO SCH (21:27)
[2022-11-28] MEDS: DIVALPROEX ER 500 MG TAB.ER.24H PO SCH (21:27)
[2022-11-28] MEDS: INSULIN DETEMIR (LEVEMIR) 100 UNIT/ML SYR SQ SCH (21:27)
[2022-11-28] MEDS: MELATONIN 5 MG TABLET PO SCH (21:27)
[2022-11-28] MEDS: ATORVASTATIN 10 MG TAB PO SCH (21:27)
[2022-11-28] MEDS: MONTELUKAST 10 MG TAB PO SCH (21:27)
--- NOTE | 2022-11-29 03:35 | P.PN ---
Progress Note - Text Progress Note Date: 11/29/22 The patient was seen in the mental health unit due to reports of persistent hyperglycemia. Patient reports that he has a significant history of severe hypoglycemia at home and he is concerned that his regimen may not be well suited for him. Upon chart review, as noted that the majority of normoglycemic episodes during this hospitalization are in the morning. Suspect that the patient may benefit from morning dosing for basal insulin. Patient reports chronically feeling weak but denied any additional complaints. Physical examination: General: Chronically ill-appearing male, in no acute distress, appears older than stated age HEENT: NC/AT, anicteric sclerae, moist conjunctiva Cardiovascular: S1/S2 wnl, no murmurs, rubs, or gallops Lungs: Clear to auscultation, normal respiratory effort, no accessory muscle use Abdominal: Soft, non-tender, non-distended, no guarding, rebound, or rigidity Skin: Warm, dry Extremities: No edema or contractures Psychiatric: Alert and oriented to person, place and time, appropriate affect Neuro: CN II-XII grossly intact, no gross focal deficits noted Assessment: Hyperglycemia with history of severe hypoglycemic episodes Plan: Switch patient to Levemir 35 units every morning Increase NovoLog to 5 units before meals 3 times a day
[2022-11-29 07:25] VITALS: TEMP 98.6
[2022-11-29 08:01] LABS: Glucose,Whole Blood 124 mg/dL (70-110)
[2022-11-29] MEDS: DIVALPROEX ER 500 MG TAB.ER.24H PO SCH ×3 (08:16→20:14)
[2022-11-29] MEDS: lisinopriL 10 MG TAB PO SCH (08:16)
[2022-11-29] MEDS: APIXABAN 5 MG TAB PO SCH ×2 (08:16→20:13)
[2022-11-29] MEDS: PANTOPRAZOLE 40 MG TABLET PO SCH ×2 (08:16→17:49)
[2022-11-29] MEDS: NICOTINE 14MG/24HR PATCH TRANSDERM SCH (08:16)
[2022-11-29] MEDS: METOPROLOL TARTRATE 50 MG TAB PO SCH ×2 (08:16→20:14)
[2022-11-29] MEDS: prednisoLONE ACETATE 1% OPHTH DROPS 5 ML BTL RIGHT EYE SCH ×2 (08:17→20:12)
[2022-11-29] MEDS: busPIRone HCl 10 MG TAB PO SCH ×2 (08:17→20:13)
[2022-11-29] MEDS: INSULIN DETEMIR (LEVEMIR) 100 UNIT/ML SYR SQ SCH (08:17)
[2022-11-29] MEDS: SYMBICORT 160-4.5 MCG INHALER INHALATION SCH ×2 (08:17→20:11)
[2022-11-29] MEDS: INSULIN ASPART (NovoLOG) 100 UNIT/ML VIAL SQ SCH ×7 (08:18→20:48)
[2022-11-29] MEDS: ATROPINE OPHTH SOLN 1% 5ML BTL LEFT EYE SCH ×2 (08:26→20:12)
[2022-11-29] MEDS ORDERED: PALIPERIDONE IM 156 MG/ML SYG IM ONE (09:00)
[2022-11-29] MEDS: SUCRALFATE 1 GM TAB PO SCH ×2 (09:21→20:13)
--- NOTE | 2022-11-29 11:45 | P.PN ---
Progress Note - Text Progress Note Date: 11/29/22 Interval history: Patient was seen laying in his bed and was agreeable to speak to play writer today. he was waiting for court this morning. he contineus to be agreeable to speak directly today and directable, answers questions appropriately. He claims that he is doing fair today, denied any problems with anxiety or his mood. states that he still has issues with anxiety at times. He states that he slept fairly last night. He is not reporting any delusions or paranoia at this time. We spoke about the second dose of the Invega Sustenna which will be due tomorrow as he refused that yesterday. Claims that he is eating fairly at this time. At this time patient denies any suicidal or homicidal ideations intent or plan. Denies any Auditory or visual hallucinations. Patient denies any side effects from the medications and has been compliant with meds. Mental status exam: General Appearance: Patient appears to be thin, sitting in his wheelchair, stated age is alert, directable, and attempts to be cooperative. Behavior: No agitated behavior. Patient is calm and directable Speech: Patient's speech is fluent and nonpressured. Mood/Affect: Mood is improving mildly, affect is congruent and constricted. Suicidality/Homicidality: Patient denies having any suicidal or homicidal ideation intent or plan. Perceptions: Patient denies any auditory or visual hallucinations. Though content/process: There is no evidence of any delusional thought content and thought process is linear and goal-directed. Fairly concrete. Memory and concentration: AOX3, grossly intact for the purposes of this session Judgment and insight: chronically poor, improving mildly Assessment/Plan: Continue with current diagnosis. Patient continues to meet criteria for inpatient psychiatric admission for symptom stabilization and safety.Patient will be maintained on current psychotropic medication regimen, patient received the Invega loading dose on 11/24 and tolerated it well, received second dose of invega sustenna 156 mg IM on 11/29, next maintenance dose of 156 mg IM due on 12/20. increase buspar 30 mg bid for anxiety, trazodone 150 mg qhs for insomnia, artane prn dosing for tremors/eps, continue depakote er 500 mg bid for mood stabilization. Monitor for medication compliance and for any psychotropic medication side effects. Will continue to monitor ongoing response to treatment. Encouraged participation in milieu. full court hearing date today, father will visit him tonight and will prepare for discharge tomorrow back home.
[2022-11-29 12:06] LABS: Glucose,Whole Blood 89 mg/dL (70-110)
[2022-11-29 12:38] LABS: Glucose,Whole Blood 76 mg/dL (70-110)
[2022-11-29 17:43] LABS: Glucose,Whole Blood 263 mg/dL (70-110)
[2022-11-29] MEDS: LORazepam 1 MG TAB PO PRN (17:50)
[2022-11-29] MEDS: TIOTROPIUM 2.5 MCG INHALER (MHU) INHALATION SCH (20:12)
[2022-11-29] MEDS: traZODone HCL 50 MG TAB PO SCH (20:13)
[2022-11-29] MEDS: ATORVASTATIN 10 MG TAB PO SCH (20:13)
[2022-11-29] MEDS: MONTELUKAST 10 MG TAB PO SCH (20:14)
[2022-11-29] MEDS: MELATONIN 5 MG TABLET PO SCH (20:14)
[2022-11-29 20:17] LABS: Glucose,Whole Blood 157 mg/dL (70-110)
[2022-11-29] MEDS: ACETAMINOPHEN TAB 325 MG TAB PO PRN (20:41)
[2022-11-30 08:04] LABS: Glucose,Whole Blood 262 mg/dL (70-110)
[2022-11-30] MEDS: INSULIN ASPART (NovoLOG) 100 UNIT/ML VIAL SQ SCH ×4 (08:11→13:06)
[2022-11-30] MEDS: NICOTINE 14MG/24HR PATCH TRANSDERM SCH (08:11)
[2022-11-30] MEDS: INSULIN DETEMIR (LEVEMIR) 100 UNIT/ML SYR SQ SCH (08:12)
[2022-11-30] MEDS: DIVALPROEX ER 500 MG TAB.ER.24H PO SCH ×2 (08:12→08:22)
[2022-11-30] MEDS: SUCRALFATE 1 GM TAB PO SCH (08:13)
[2022-11-30] MEDS: PANTOPRAZOLE 40 MG TABLET PO SCH (08:13)
[2022-11-30] MEDS: APIXABAN 5 MG TAB PO SCH (08:13)
[2022-11-30] MEDS: lisinopriL 10 MG TAB PO SCH (08:13)
[2022-11-30] MEDS: METOPROLOL TARTRATE 50 MG TAB PO SCH (08:13)
[2022-11-30] MEDS: busPIRone HCl 10 MG TAB PO SCH (08:13)
[2022-11-30] MEDS: SYMBICORT 160-4.5 MCG INHALER INHALATION SCH (08:14)
[2022-11-30] MEDS: prednisoLONE ACETATE 1% OPHTH DROPS 5 ML BTL RIGHT EYE SCH (08:14)
[2022-11-30] MEDS: ATROPINE OPHTH SOLN 1% 5ML BTL LEFT EYE SCH (08:14)
[2022-11-30 08:27] VITALS: BP 113/78; PULSE 92
--- NOTE | 2022-11-30 10:29 | P.DS ---
Providers Date of admission: 11/20/22 19:45 Expected date of discharge: 11/30/22 Attending physician: Armen Meza MD Consults: 11/20/22 19:46 Consult Physician Routine Consulting Provider: Will Berger Consult Reason/Comments: medical H&P Do you want consulting provider notified?: Yes Primary care physician: Stated None - Discharge Diagnosis(es) (1) Schizoaffective disorder Current Visit: Yes Status: Acute Priority: High (2) Type 1 diabetes mellitus Current Visit: Yes Status: Acute Priority: Medium (3) Nicotine dependence Current Visit: Yes Status: Acute Priority: Low (4) Non-adherence to medical treatment Current Visit: Yes Status: Acute Priority: High Hospital Course: Admission HPI: Admission note was completed by editorial writer "This patient is a 37-year-old male, patient currently lives with his parents in a house, he collects Social Security disability. Patient has a history of schizophrenia, type 1 diabetes, blindness, poor medication compliance and poor follow-up. The patient was recently discharged from the mental health unit on 10/28. At that time patient was transitioned onto long-acting injection. Patient was brought back in 4 psychiatric assessment due to concerns from [facility] and also his parents. Apparently patient was delusional, noncompliant with medications and psychotic/paranoid. Patient has a long history of schizophrenia and is currentl y being seen at [facility] for medication management. Patient was admitted involuntarily to the mental health unit yesterday and seen today by editorial writer. Patient was seen lying in his bed and agreeable to speak to editorial writer. He was fairly irritable today, hostile. She believes that he does not need to be in the hospital and does not need medications. He believed that he had "67 comb setter" and made other bizzare statements. patient was delusional, loosely formed, illogical and tangential. he was noted to be talking to himself. he refused to speak to editorial writer about his medications and states that he does not need them, claims his sleep is "fine". He also claims that he is hearing voices however believes that they're fairly distant from him. He has fairly poor insight and judgment. denies any VH and denies any Si or HI at this time. Patient's UDS was positive for TCAs." Hospital course: Upon admission to the unit patient was admitted to the psychiatric unit involuntarily on a demand for hearing, the hearing was scheduled for 11/29 and resulted in a court order for psychiatric treatment. Patient was initially fairly isolative, he eventually got along well with other patients on the unit and followed unit protocol. Patient was compliant with the medications and denied any side effects throughout hospital course. Patient was started on paliperidone increased to a dose of 9 mg then was given Invega Sustenna 234 mg IM loading dose on 11/24, tolerated it well and received a second dose of Invega Sustenna 156 mg IM on 11/29. Patient will be due for his monthly maintenance dose Of 156 mg IM on 12/20. Patient was titrated off of by mouth paliperidone. Increase dose of trazodone 150 mg daily at bedtime for insomnia/mood, BuSpar 30 mg twice a day for anxiety. depakote er increased and changed to PO 500 mg bid for mood stabilization. artane changed to prn dosing for eps reaction. Patient spoke of his stressors and engaged in therapy both group and individual. Patient was also seen by medical team for history and physical exam. Throughout the course of the hospitalization patient gradually improved with regards to mood, anxiety, psychosis/delusions, hallucinations, sleep and returned back to their baseline level of functioning. On the day of discharge patient denied any suicidal or homicidal ideations intent or plan denied any auditory or visual hallucinations. Patient endorsed wanting to live for his health and his future. The patient denied any access to guns or weapons. Patient denied any paranoia and did not endorse any delusions. Patient does not have a significant history of substance abuse and was counseled on abstaining from all substances including alcohol and marijuana. Patient was also counseled on the medications and need for regular compliance and was encouraged to follow-up with their outpatient appointment for mental health and also for primary care. Prior to discharge a family meeting will be arranged by social work instructor to answer any questions and ensure safety upon discharge. Patient will be discharged back to his family home under the care of his parents. Mental status exam: General Appearance: Patient appears to be thin, stated age is alert, pleasant, and attempts to be cooperative. Patient is in no acute distress and has improved hygiene and grooming Behavior: Patient is calmly seated without any agitated behavior. Speech: Patient's speech is fluent and nonpressured. Mood/Affect: Patient reports their mood is "better", affect is congruent Suicidality/Homicidality: Patient denies having any suicidal or homicidal ideation intent or plan. Perceptions: Patient denies any auditory or visual hallucinations. Though content/process: There is no evidence of any delusional thought content and thought process is linear and goal-directed. [place] Memory and concentration: AOX3, grossly intact for the purposes of this session. Can spell "WORLD" backwards correctly. Judgment and insight: chronically poor/limited, however has improved with guarded prognosis Impression: Schizoaffective disorder Type 1 diabetes Nonadherence to medical treatment Nicotine dependence Plan: -Continue with discharge today as patient has improved and stabilized psychiatrically and is not currently an imminent threat to himself and/or others. Patient will remain at chronically elevated risk for harm to self and/or others due to his impulsivity and chronically poor insight/judgment. -Continue medications: Invega Sustenna 234 mg IM loading dose given on 11/24, second dose of Invega Sustenna 156 mg IM given on 11/29, next monthly maintenan ce dose of 156 mg IM due on 12/20. BuSpar 30 mg twice a day for anxiety, trazodone 150 mg daily at bedtime for insomnia/mood. Artane decreased down to when necessary dosing twice a day for EPS reaction. Depakote ER by mouth increased to 500 mg twice a day for mood stabilization. -Patient was counseled on the need for medication compliance and appropriate follow-up at mental health and also primary care for medical issues. Patient verbalized understanding and agreed. -Social work to arrange for and conduct family meeting to ensure safety upon discharge and answer any questions/concerns. Social work also to arrange for patients follow up appointments with [facility] for psychiatric care along with follow up with primary care provider. -Patient counseled on abstaining from recreational drugs and marijuana and alcohol. Was informed/educated on the adverse effects on their physical and mental health. Patient verbally agreed and understood. -Patient was instructed to return to the hospital or seek immediate medical care if their psychiatric or medical symptoms do worsen or reoccur. Allergies Allergy/AdvReac Type Severity Reaction Status Date / Time adhesive tape Allergy Rash/Hives Verified 11/19/22 14:52 cefazolin Allergy Rash/Hives Verified 11/19/22 14:52 latex Allergy Rash/Hives Verified 11/19/22 14:52 amoxicillin [From Augmentin] AdvReac Nausea & Verified 11/19/22 14:52 Vomiting & Diarrhea clavulanic acid AdvReac Nausea & Verified 11/19/22 14:52 [From Augmentin] Vomiting & Diarrhea codeine AdvReac Hallucinati Verified 11/19/22 16:42 ons duloxetine [From Cymbalta] AdvReac Hallucinati Verified 11/19/22 14:52 ons pregabalin [From Lyrica] AdvReac Hallucinati Verified 11/19/22 14:52 ons Laboratory Results WBC 10.3 k/uL (3.8-10.6) 11/27/22 16:04 RBC 4.05 m/uL (4.30-5.90) L 11/27/22 16:04 Hgb 12.2 gm/dL (13.0-17.5) L 11/27/22 16:04 Hct 36.0 % (39.0-53.0) L 11/27/22 16:04 MCV 88.7 fL (80.0-100.0) 11/27/22 16:04 MCH 30.0 pg (25.0-35.0) 11/27/22 16:04 MCHC 33.9 g/dL (31.0-37.0) 11/27/22 16:04 RDW 12.8 % (11.5-15.5) 11/27/22 16:04 Plt Count 371 k/uL (150-450) 11/27/22 16:04 MPV 7.1 11/27/22 16:04 Neutrophils % 71 % 11/19/22 00:37 Lymphocytes % 21 % 11/19/22 00:37 Monocytes % 6 % 11/19/22 00:37 Eosinophils % 1 % 11/19/22 00:37 Basophils % 0 % 11/19/22 00:37 Neutrophils # 5.8 k/uL (1.3-7.7) 11/19/22 00:37 Lymphocytes # 1.7 k/uL (1.0-4.8) 11/19/22 00:37 Monocytes # 0.5 k/uL (0-1.0) 11/19/22 00:37 Eosinophils # 0.1 k/uL (0-0.7) 11/19/22 00:37 Basophils # 0.0 k/uL (0-0.2) 11/19/22 00:37 VBG pH 7.41 (7.31-7.41) 11/19/22 00:37 VBG pCO2 39 mmHg (37-51) 11/19/22 00:37 VBG HCO3 25 mmol/L (24-28) 11/19/22 00:37 Sodium 141 mmol/L (137-145) 11/27/22 16:04 Potassium 4.3 mmol/L (3.5-5.1) 11/27/22 16:04 Chloride 105 mmol/L (98-107) 11/27/22 16:04 Carbon Dioxide 25 mmol/L (22-30) 11/27/22 16:04 Anion Gap 11 mmol/L 11/27/22 16:04 BUN 11 mg/dL (9-20) 11/27/22 16:04 Creatinine 0.85 mg/dL (0.66-1.25) 11/27/22 16:04 Est GFR (CKD-EPI)AfAm >90 (>60 ml/min/1.73 sqM) 11/27/22 16:04 Est GFR (CKD-EPI)NonAf >90 (>60 ml/min/1.73 sqM) 11/27/22 16:04 Glucose 182 mg/dL (74-99) H 11/27/22 16:04 POC Glucose (mg/dL) 262 mg/dL (70-110) H 11/30/22 08:02 POC Glu [employer] Marleny Dewey 11/30/22 08:02 Lactic Ac Sepsis Rflx Y 11/19/22 01:28 Plasma Lactic Acid Red 1.4 mmol/L (0.7-2.0) 11/19/22 06:25 Calcium 9.4 mg/dL (8.4-10.2) 11/27/22 16:04 Magnesium 1.9 mg/dL (1.6-2.3) 11/19/22 00:37 Total Bilirubin 0.3 mg/dL (0.2-1.3) 11/19/22 00:37 AST 18 U/L (17-59) 11/19/22 00:37 ALT 19 U/L (4-49) 11/19/22 00:37 Alkaline Phosphatase 165 U/L (38-126) H 11/19/22 00:37 Total Protein 6.2 g/dL (6.3-8.2) L 11/19/22 00:37 Albumin 4.0 g/dL (3.5-5.0) 11/19/22 00:37 TSH 0.917 mIU/L (0.465-4.680) 11/19/22 16:36 Urine Color Colorless 11/19/22 00:37 Urine Appearance Clear (Clear) 11/19/22 00:37 Urine pH 5.5 (5.0-8.0) 11/19/22 00:37 Ur Specific [place] 1.018 (1.001-1.035) 11/19/22 00:37 Urine Protein Negative (Negative) 11/19/22 00:37 Urine Glucose (UA) 4+ (Negative) H 11/19/22 00:37 Urine Ketones Negative (Negative) 11/19/22 00:37 Urine Blood Negative (Negative) 11/19/22 00:37 Urine Nitrite Negative (Negative) 11/19/22 00:37 Urine Bilirubin Negative (Negative) 11/19/22 00:37 Urine Urobilinogen <2.0 mg/dL (<2.0) 11/19/22 00:37 Ur Leukocyte Esterase Negative (Negative) 11/19/22 00:37 Salicylates <1.0 mg/dL 11/19/22 00:37 Urine Opiates Screen Not Detected (NotDetected) 11/19/22 00:37 Ur Oxycodone Screen Not Detected (NotDetected) 11/19/22 00:37 Urine Methadone Screen Not Detected (NotDetected) 11/19/22 00:37 Ur Propoxyphene Screen Not Detected (NotDetected) 11/19/22 00:37 Acetaminophen <10.0 ug/mL 11/19/22 00:37 Ur Barbiturates Screen Not Detected (NotDetected) 11/19/22 00:37 Valproic Acid <10.0 ug/mL 11/19/22 16:36 U Tricyclic Antidepress Detected (NotDetected) H 11/19/22 00:37 Ur Phencyclidine Scrn Not Detected (NotDetected) 11/19/22 00:37 Ur Amphetamines Screen Not Detected (NotDetected) 11/19/22 00:37 U Methamphetamines Scrn Not Detected (NotDetected) 11/19/22 00:37 U Benzodiazepines Scrn Not Detected (NotDetected) 11/19/22 00:37 Urine Cocaine Screen Not Detected (NotDetected) 11/19/22 00:37 U Marijuana (THC) Screen Not Detected (NotDetected) 11/19/22 00:37 Serum Alcohol <10 mg/dL 11/19/22 00:37 Acetone, Qual Negative (Negative) 11/22/22 20:16 Coronavirus (PCR) Not Detected (Not Detectd) 11/20/22 14:26 Vital Signs Temp 98.6 F 11/29/22 06:53 Pulse 92 11/30/22 08:23 Resp 14 11/29/22 06:53 BP 113/78 11/30/22 08:23 Pulse Ox 99 11/29/22 06:53 FiO2 Patient Condition at Discharge: Stable Plan - Discharge Summary New Discharge Prescriptions: New Trihexyphenidyl [Artane] 2 mg PO AC-BID PRN tab PRN Reason: tremors/muscle spasms busPIRone HCL [Buspar] 30 mg PO BID 30 Days #60 tablet traZODone HCL 150 mg PO HS 30 Days #30 tablet Divalproex ER [Depakote ER] 500 mg PO BID 30 Days #60 tab Paliperidone IM [Invega Sustenna] 156 mg IM QMONTHLY #1 each Continue Montelukast [Singulair] 10 mg PO HS Atorvastatin [Lipitor] 10 mg PO HS Glucagon Emergency Kit 1 mg IM ONCE PRN PRN Reason: Hypocalcemia Ipratropium-Albuterol Nebulize [Duoneb 0.5 mg-3 mg/3 ml Soln] 3 ml INHALATION RT-QID PRN 30 Days #120 each PRN Reason: Shortness Of Breath Or Wheezing Sucralfate [Carafate] 1 gm PO BID 30 Days #60 tab Ibuprofen [Motrin] 600 mg PO Q6HR PRN tab PRN Reason: Moderate Pain (Scale 4 To 6) prednisoLONE ACETATE 1% OPHTH [Pred Forte 1%] 1 drop RIGHT EYE BID Atropine Sulfate [Atropine Sulfate 1%] 1 drop LEFT EYE BID cloNIDine 0.2 MG/24HR PATCH [Catapres-TTS] 1 patch TRANSDERM Q7D 4 Days #4 patch Metoprolol Tartrate [Lopressor] 50 mg PO BID 30 Days #60 tab lisinopriL [Zestril] 30 mg PO DAILY 30 Days #30 tab INSULIN ASPART (NovoLOG) [NovoLOG (formulary)] 3 unit SQ AC-TID each Insulin Detemir (Levemir) [Levemir] 30 unit SQ HS each Pantoprazole [Protonix] 40 mg PO AC-BID 30 Days #60 tab Apixaban [Eliquis Starter Pack (for VTE)] See Taper PO DIRECTED Budesonide/Glycopyr/Formoterol [Breztri Aerosphere Inhaler] 2 puff INHALATION RT-DAILY Albuterol Sulfate [Albuterol Sulfate Hfa] 1 - 2 puff PO RT-QID PRN PRN Reason: Shortness Of Breath Nicotine 14Mg/24Hr Patch [Habitrol] 1 patch TRANSDERM DAILY 14 Days #14 patch Melatonin 10 mg PO HS 30 Days #60 tab rOPINIRole HCL [Requip] 1 mg PO HS 30 Days #30 tab Discontinued risperiDONE ER inj [Perseris] 90 mg SQ QMONTHLY #1 each amLODIPine [Norvasc] 5 mg PO BID 30 Days #60 tab Metoclopramide [Reglan] 5 mg PO AC-TID PRN 90 Days #90 tab PRN Reason: Gi Upset Trihexyphenidyl [Artane] 2 mg PO AC-BID 30 Days #60 tab QUEtiapine [SEROquel] 100 mg PO HS 30 Days #30 tab Acetaminophen-Codeine 300-30mg [Tylenol w/codeine #3] 1 tab PO BID PRN PRN Reason: Pain Valproic Acid Oral Soln [Depakene Syrup] 250 mg PO BID INSULIN ASPART (NovoLOG) [NovoLOG (formulary)] See Protocol SQ ACHS Discharge Medication List Atorvastatin [Lipitor] 10 mg PO HS 01/08/22 [History] Atropine Sulfate [Atropine Sulfate 1%] 1 drop LEFT EYE BID 01/08/22 [History] Montelukast [Singulair] 10 mg PO HS 01/08/22 [History] prednisoLONE ACETATE 1% OPHTH [Pred Forte 1%] 1 drop RIGHT EYE BID 01/08/22 [History] Glucagon Emergency Kit 1 mg IM ONCE PRN 07/30/23 [History] Ipratropium-Albuterol Nebulize [Duoneb 0.5 mg-3 mg/3 ml Soln] 3 ml INHALATION RT-QID PRN 30 Days #120 each 09/20/22 [Rx] Metoprolol Tartrate [Lopressor] 50 mg PO BID 30 Days #60 tab 09/20/22 [Rx] cloNIDine 0.2 MG/24HR PATCH [Catapres-TTS] 1 patch TRANSDERM Q7D 4 Days #4 patch 09/20/22 [Rx] lisinopriL [Zestril] 30 mg PO DAILY 30 Days #30 tab 09/20/22 [Rx] INSULIN ASPART (NovoLOG) [NovoLOG (formulary)] 3 unit SQ AC-TID each 10/14/22 [Rx] Insulin Detemir (Levemir) [Levemir] 30 unit SQ HS each 10/17/22 [Rx] Ibuprofen [Motrin] 600 mg PO Q6HR PRN tab 10/24/22 [Rx] Pantoprazole [Protonix] 40 mg PO AC-BID 30 Days #60 tab 10/24/22 [Rx] Sucralfate [Carafate] 1 gm PO BID 30 Days #60 tab 10/24/22 [Rx] Albuterol Sulfate [Albuterol Sulfate Hfa] 1 - 2 puff PO RT-QID PRN 11/19/22 [History] Apixaban [Eliquis Starter Pack (for VTE)] See Taper PO DIRECTED 11/19/22 [History] Budesonide/Glycopyr/Formoterol [Breztri Aerosphere Inhaler] 2 puff INHALATION RT-DAILY 11/19/22 [History] Divalproex ER [Depakote ER] 500 mg PO BID 30 Days #60 tab 11/30/22 [Rx] Melatonin 10 mg PO HS 30 Days #60 tab 11/30/22 [Rx] Nicotine 14Mg/24Hr Patch [Habitrol] 1 patch TRANSDERM DAILY 14 Days #14 patch 11/30/22 [Rx] Paliperidone IM [Invega Sustenna] 156 mg IM QMONTHLY #1 each 11/30/22 [Rx] Trihexyphenidyl [Artane] 2 mg PO AC-BID PRN tab 11/30/22 [Rx] busPIRone HCL [Buspar] 30 mg PO BID 30 Days #60 tablet 11/30/22 [Rx] rOPINIRole HCL [Requip] 1 mg PO HS 30 Days #30 tab 11/30/22 [Rx] traZODone HCL 150 mg PO HS 30 Days #30 tablet 11/30/22 [Rx] Follow up Appointment(s)/Referral(s): [facility] [Outside] - 12/04/22 3:00 pm (12-04-22 at 3:00 with Diego Banks 12-13-22 at 10:15 with YAS Hernandez Both appts at the [place] office ) None,Stated [Primary Care Provider] - 1-2 days Activity/Diet/Wound Care/Special Instructions: Avoid the use of street drugs and alcohol. Take all medications as prescribed. When you are in need of refills on your medications, please contact your medical provider and/or outpatient psychiatrist/provider to have this done. Please go to your scheduled outpatient appointment for aftercare treatment. If symptoms return or become worse, call the crisis line at and/or go to the nearest emergency room for evaluation. National Suicide Hotline 088. Discharge Disposition: HOME SELF-CARE
[2022-11-30 12:44] LABS: Glucose,Whole Blood 57 mg/dL (70-110)
[2022-11-30 12:58] LABS: Glucose,Whole Blood 84 mg/dL (70-110)
== END 2022-11-30 14:50 | disposition home or self-care (01) | DRG 885 ==
LOC: EC 23:57 → 3MHU 11-20 19:45
PROVIDERS: ADMIT Psychiatry & Neurology Psychiatry; ATTEND Psychiatry & Neurology Psychiatry
DX: F25.9 Schizoaffective disorder, unspecified (principal); E87.1 Hypo-osmolality and hyponatremia; E10.40 Type 1 diabetes mellitus with diabetic neuropathy, unspecified; E10.649 Type 1 diabetes mellitus with hypoglycemia without coma; E10.39 Type 1 diabetes mellitus with other diabetic ophthalmic complication; K31.84 Gastroparesis; E10.43 Type 1 diabetes mellitus with diabetic autonomic (poly)neuropathy; E10.65 Type 1 diabetes mellitus with hyperglycemia; Z79.4 Long term (current) use of insulin; Z11.52 Encounter for screening for COVID-19; H42 Glaucoma in diseases classified elsewhere; T38.3X6A Underdosing of insulin and oral hypoglycemic [antidiabetic] drugs, initial encounter; H54.8 Legal blindness, as defined in USA; I10 Essential (primary) hypertension; G47.00 Insomnia, unspecified; F41.9 Anxiety disorder, unspecified; G43.909 Migraine, unspecified, not intractable, without status migrainosus; Z91.128 Patient's intentional underdosing of medication regimen for other reason; F17.210 Nicotine dependence, cigarettes, uncomplicated; Z79.01 Long term (current) use of anticoagulants; Z79.51 Long term (current) use of inhaled steroids; Z79.899 Other long term (current) drug therapy; Z71.6 Tobacco abuse counseling; Z71.41 Alcohol abuse counseling and surveillance of alcoholic; Z71.51 Drug abuse counseling and surveillance of drug abuser; Z88.5 Allergy status to narcotic agent; Z88.0 Allergy status to penicillin; Z88.8 Allergy status to other drugs, medicaments and biological substances; Z88.1 Allergy status to other antibiotic agents; Z91.040 Latex allergy status
CPT/HCPCS: 36415; 80048; 80053; 80143; 80164; 80179; 80306; 80320; 81003; 82009; 82075; 82803; 83605; 83735; 84443; 85025; 85027; 87635; 94640; 96361; 96374; 96376; 99285